=== PATIENT | male | born 1950 | race Caucasian/White ===

== ENCOUNTER 2016-12-20 02:30 | Inpatient (IN) | payer MEDICAID ==
[2016-12-20] VITALS (20 sets, daily range): BP systolic 70–143; BP diastolic 48–119
[~2016-12-20] VITALS: Ht 182.9 cm; Wt 83.9 kg
[~2016-12-20 02:30] MED LIST: ATIVAN0.5 MG ORAL; BACTRIM SINGLE S1 EA ORAL; BENADRYL50 MG ORAL; COLACE100 MG ORAL; DUONEB 0.5-3(2.53 ML HHN; FLOMAX0.4 MG ORAL; MIDODRINE HCL5 MG ORAL; MOM30 ML ORAL; MULTIVITAMINS1 EA13 ORAL; MYLANTA30 M1 GT; PRILOSEC40 MG ORAL; RISPERDAL1 MG PO; TYLENOL325 MG ORAL
[2016-12-20 02:51] LABS: BASOPHILS % (AUTO) 0.4 % (0.0-2.0); EOSINOPHILS % (AUTO) 2.6 % (0.0-3.0); LYMPHOCYTES % (AUTO) 17.4 % (20.0-45.0); MEAN CORPUSCULAR HEMOGLOBIN 21.5 PG (27.0-31.0); MEAN CORPUSCULAR HGB CONC 29.1 G/DL (32.0-36.0); MEAN CORPUSCULAR VOLUME 74 FL (80-99); MEAN PLATELET VOLUME 10.3 FL (6.5-10.1); MONOCYTES % (AUTO) 3.3 % (1.0-10.0); NEUTROPHILS % (AUTO) 76.4 % (45.0-75.0); PLATELET COUNT 238 K/UL (150-450); RED BLOOD COUNT 5.09 M/UL (4.70-6.10); RED CELL DISTRIBUTION WIDTH 16.7 % (11.6-14.8); WHITE BLOOD COUNT 6.9 K/UL (4.8-10.8)
[2016-12-20] MEDS ORDERED: Zosyn 4.5gm inj ONE (02:58)
[2016-12-20] MEDS ORDERED: Piperacillin/Tazobactam 4.5 GM in NS 110 ML IVPB ONE (03:00)
[2016-12-20] MEDS ORDERED: metroNIDAZOLE 500mg 100 ML IVPB ONE (03:00)
[2016-12-20] MEDS ORDERED: Albuterol ud Inhalation HHN ONE ×2 (03:00→03:15)
--- NOTE | 2016-12-20 03:00 | Emergency Room Report ---
History of Present Illness General Chief Complaint: Dyspnea/Respdistress Source: Medical Record Present Illness HPI Is a 66-year-old male from residential. He has a history of schizophrenia and COPD. He presents with chief complaint of respiratory distress. Onset for last couple days. Per EMS he was hypoxic. [facility] called 911 because of this. Is no fever or chills. No nausea no vomiting. Mental status per EMS was at baseline. He is a full code. History limited because the patient is a poor historian. Allergies: Coded Allergies: No Known Allergies (Unverified , 12/05/15) Patient History Past Medical History: see triage record, old chart reviewed, COPD Past Surgical History: other Pertinent Family History: none Social History: Denies: smoking Immunizations: other Reviewed Nursing Documentation: PMH: Agreed, PSxH: Agreed Nursing Documentation-PMH Past Medical History: No History, Except For Hx Cardiac Problems: Yes - HF, Hx Hypertension: Yes Hx COPD: Yes Hx Cancer: No Review of Systems Constitutional: Reports: weakness Eye: Denies: blurred vision, eye pain ENT: Denies: ear pain, nose congestion, throat swelling Respiratory: Reports: cough, shortness of breath Cardiovascular: Denies: chest pain, palpitations Gastrointestinal: Denies: abdominal pain, diarrhea, nausea, vomiting Musculoskeletal: Denies: back pain, joint pain Skin: Denies: rash Neurological: Denies: headache, numbness Endocrine: Denies: increased thirst, increased urine Hematologic/Lymphatic: Denies: easy bruising All Other Systems: negative except mentioned in HPI Physical Exam Vital Signs Date Time Temp Pulse Resp B/P Pulse Ox O2 Delivery O2 Flow Rate FiO2 12/20/16 02:25 144 26 70/48 78 Non-Rebreather 15.0 12/20/16 02:31 99.5 vitals with low-grade fever and tachycardia Sp02 EP Interpretation: abnormal General Appearance: moderate distress, thin, Chronically Ill Head: normocephalic, atraumatic Eyes: bilateral eye EOMI, bilateral eye PERRL ENT: hearing grossly normal, normal pharynx Neck: full range of motion, supple, no meningismus Respiratory: chest non-tender, respiratory distress, decreased breath sounds, accessory muscle use, crackles Cardiovascular #1: regular rate, rhythm, no murmur, tachycardia Gastrointestinal: normal bowel sounds, non tender, no mass, no organomegaly, no bruit, non-distended Musculoskeletal: back normal, other - Patient is contracted Skin: warm/dry Procedures Critical Care Time Critical Care Time Critical care is mandated in this patient who presented with urosepsis/septic shock secondary to pneumonia. Patient require my urgent intervention to attenuate the risks of respiratory collapse which may lead to cardiovascular collapse and . Critical care time is 35 minutes excluding any reportable procedure. Critical care time included evaluation, multiple reevaluation, looking at old charts, interpreting laboratory and diagnostic data, discussing case with patient and family and consultants, and charting. Medical Decision Making Diagnostic Impression: Primary Impression: Acute respiratory failure with hypoxia Additional Impressions: Aspiration pneumonia Qualified Codes: J69.0 - Pneumonitis due to inhalation of food and vomit Severe sepsis Dehydration Anemia, chronic disease Proteinuria Qualified Codes: R80.9 - Proteinuria, unspecified MAR (acute kidney injury) Pneumonia Qualified Codes: J18.1 - Lobar pneumonia, unspecified organism ER Course Patient presents with acute respiratory failure secondary to hypoxia from sepsis and pneumonia. He is greatly improved with IV fluids and BiPAP. He is more alert. 1 spectrum antibiotics and Flagyl started. Will continue with BiPAP. Will admit to ICU. Laboratory Tests Test 12/20/16 02:30 12/20/16 02:31 12/20/16 03:13 12/20/16 03:20 White Blood Count 6.9 K/UL (4.8-10.8) Red Blood Count 5.09 M/UL (4.70-6.10) Hemoglobin 11.0 G/DL (14.2-18.0) L Hematocrit 37.6 % (42.0-52.0) L Mean Corpuscular Volume 74 FL (80-99) L Mean Corpuscular Hemoglobin 21.5 PG (27.0-31.0) L Mean Corpuscular Hemoglobin Concent 29.1 G/DL (32.0-36.0) L Red Cell Distribution Width 16.7 % (11.6-14.8) H Platelet Count 238 K/UL (150-450) Mean Platelet Volume 10.3 FL (6.5-10.1) H Neutrophils (%) (Auto) 76.4 % (45.0-75.0) H Lymphocytes (%) (Auto) 17.4 % (20.0-45.0) L Monocytes (%) (Auto) 3.3 % (1.0-10.0) Eosinophils (%) (Auto) 2.6 % (0.0-3.0) Basophils (%) (Auto) 0.4 % (0.0-2.0) Prothrombin Time 11.2 SEC (9.30-11.50) Prothromb Time International Ratio 1.1 (0.9-1.1) Activated Partial Thromboplast Time 24 SEC (23-33) Sodium Level 140 mEQ/L (135-145) Potassium Level 4.1 mEQ/L (3.4-4.9) Chloride Level 100 mEQ/L (98-107) Carbon Dioxide Level 19 mEQ/L (20-30) L Anion Gap 21 (5-15) H Blood Urea Nitrogen 22 mg/dL (7-23) Creatinine 1.3 mg/dL (0.7-1.2) H Estimat Glomerular Filtration Rate 55.1 mL/min (>60) Glucose Level 124 mg/dL (74-106) H Lactic Acid Level 6.00 mmol/L (0.66-2.22) H 6.50 mmol/L (0.66-2.22) H Calcium Level 9.5 mg/dL (8.6-10.2) Total Bilirubin 0.3 mg/dL (0.0-1.2) Aspartate Amino Transf (AST/SGOT) 57 U/L (5-40) H Alanine Aminotransferase (ALT/SGPT) 56 U/L (3-41) H Alkaline Phosphatase 71 U/L (40-129) Total Creatine Kinase 112 U/L (38-174) Creatine Kinase MB 3.2 ng/mL (< 6.7) Creatine Kinase MB Relative Index 2.8 Troponin I < 0.30 ng/mL (<=0.30) Pro-B-Type Natriuretic Peptide Pending Total Protein 7.5 g/dL (6.6-8.7) Albumin 3.7 g/dL (3.5-5.2) Globulin 3.8 g/dL Albumin/Globulin Ratio 0.9 (1.0-2.7) L Arterial Blood pH 7.341 (7.350-7.450) Arterial Blood Partial Pressure CO2 30.5 mmHg (35.0-45.0) L Arterial Blood Partial Pressure O2 64.0 mmHg (75.0-100.0) L Arterial Blood HCO3 16.1 mmol/L (22.0-26.0) L Arterial Blood Oxygen Saturation 88.7 % (92.0-98.0) L Arterial Blood Base Excess -8.6 Foreign Test Positive Urine Color Pale yellow Urine Appearance Clear Urine pH 6 (4.5-8.0) Urine Specific [place] 1.015 (1.005-1.035) Urine Protein 3+ (NEGATIVE) H Urine Glucose (UA) Negative (NEGATIVE) Urine Ketones Negative (NEGATIVE) Urine Occult Blood Negative (NEGATIVE) Urine Nitrite Negative (NEGATIVE) Urine Bilirubin Negative (NEGATIVE) Urine Urobilinogen Normal MG/DL (0.0-1.0) Urine Leukocyte Esterase Negative (NEGATIVE) Urine RBC 0-2 /HPF (0 - 0) H Urine WBC 2-4 /HPF (0 - 0) Urine Squamous Epithelial Cells Few /LPF (NONE/OCC) Urine Bacteria Few /HPF (NONE) Lab Results Impression labs with elevated lactate EKG Diagnostic Results Rate: normal, tachycardiac Rhythm: NSR ST Segments: other - NSST changes Rhythm Strip Diag. Results EP Interpretation: yes Rate: 120 Rhythm: NSR, no PVC's, no ectopy Chest X-Ray Diagnostic Results EP Interpretation: Yes Findings: no effusion, no pneumothorax, other - rll infiltrate Number of Views: 1 Last Vital Signs Date Time Temp Pulse Resp B/P Pulse Ox O2 Delivery O2 Flow Rate FiO2 12/20/16 02:31 99.5 138 40 70/48 82 Non-Rebreather 15.0 Status: improved Disposition: ADMITTED INPATIENT Condition: Critical Referrals: ALONDRA SINGH (PCP) JERALD URBINA M.D. Dec 20, 2016 03:00
[2016-12-20 03:03] LABS: TROPONIN I < 0.30 ng/mL (<=0.30)
[2016-12-20 03:04] LABS: INR 1.1 (0.9-1.1); PROTHROMBIN TIME 11.2 SEC (9.30-11.50)
[2016-12-20 03:07] LABS: ALBUMIN/GLOBULIN RATIO 0.9 (1.0-2.7); CALCIUM 9.5 mg/dL (8.6-10.2); CREATININE 1.3 mg/dL (0.7-1.2); GLOMERULAR FILTRATION RATE 55.1 mL/min (>60); POTASSIUM 4.1 mEQ/L (3.4-4.9); TOTAL PROTEIN 7.5 g/dL (6.6-8.7)
[2016-12-20 03:10] LABS: REFLEX LACTIC ACID YES OR NO YES
[2016-12-20 03:13] LABS: ABG ALLEN TEST POSITIVE; ABG BASE EXCESS -8.6; ABG PCO2 30.5 mmHg (35.0-45.0)
[2016-12-20] MEDS ORDERED: Solu-MEDROL 125mg Inj IVP ONE (03:15)
[2016-12-20 03:17] LABS: CKMB 3.2 ng/mL (< 6.7)
[2016-12-20] MEDS: Albuterol ud Inhalation HHN SCH ×2 (03:22→03:23)
[2016-12-20 03:41] LABS: APPEARANCE,URINE CLEAR; KETONES,URINE NEGATIVE (NEGATIVE); LEUKOCYTE ESTERASE ,URINE NEGATIVE (NEGATIVE); NITRITE,URINE NEGATIVE (NEGATIVE); PH,URINE 6 (4.5-8.0); PROTEIN,URINE 3+ (NEGATIVE); UROBILINOGEN,URINE NORMAL MG/DL (0.0-1.0)
[2016-12-20 04:03] LABS: BACTERIA,URINE FEW /HPF; RBC,URINE 0-2 /HPF (0 - 0); SQUAMOUS EPITHELIAL CELL,UR FEW /LPF (NONE/OCC)
[2016-12-20] MEDS ORDERED: MIDODRINE HCL5 MG ORAL (04:18)
[2016-12-20] MEDS ORDERED: NEXIUM40 MG ORAL (04:18)
[2016-12-20] MEDS ORDERED: BISACODYL10 M1 RC (04:18)
[2016-12-20 05:38] LABS: REFLEX LACTIC ACID YES OR NO YES
--- NOTE | 2016-12-20 08:16 | Infectious Diseases Prog Note ---
Assessment/Plan Problems: (1) HCAP (healthcare-associated pneumonia) Assessment & Plan: will send sputum culture and start vacomycin with zosyn empirically (2) Severe sepsis with septic shock Assessment & Plan: will send blood culture and start zosyn with vancomycin empirically. (3) CHF (congestive heart failure) Assessment & Plan: continue diuresis, consult cardiology (4) COPD (chronic obstructive pulmonary disease) Assessment & Plan: continue inhalers , with antibiotics, pulmonary is following (5) Acute respiratory failure with hypoxia Assessment & Plan: due to pneumonia, on BIPAP , pulmonary is following (6) MAR (acute kidney injury) Assessment & Plan: due to sepsis, continue gentle hydration, adjust meds as per creatinine clearance .consult nephrology Subjective Allergies: Coded Allergies: No Known Allergies (Unverified , 12/05/15) Objective Vital Signs Last 24 Hour Vital Signs Date Time Temp Pulse Resp B/P Pulse Ox O2 Delivery O2 Flow Rate FiO2 12/20/16 06:45 112 22 100 Facial 60 12/20/16 06:24 99.6 114 21 103/68 97 Bi-pap 15.0 60 12/20/16 05:45 117 24 100 Facial 60 12/20/16 05:12 112 25 109/76 100 Bi-pap 15.0 80 12/20/16 03:53 146 32 100 Bi-pap 80 12/20/16 03:53 80 12/20/16 03:37 99.9 143 37 100/64 100 Bi-pap 15.0 100 12/20/16 03:26 100 12/20/16 03:23 147 37 Bi-pap 15.0 100 12/20/16 03:20 145 39 96 Bi-pap 100 12/20/16 03:19 145 36 Bi-pap 100 12/20/16 03:17 146 39 96 Facial 100 12/20/16 02:50 99.9 12/20/16 02:31 99.5 138 40 70/48 82 Non-Rebreather 15.0 12/20/16 02:25 144 26 70/48 78 Non-Rebreather 15.0 Height (Feet): 6 Height (Inches): 0.00 Weight (Pounds): 185 Laboratory Tests Test 12/20/16 02:30 12/20/16 02:31 12/20/16 03:13 4/11/17 03:20 White Blood Count 6.9 K/UL (4.8-10.8) Red Blood Count 5.09 M/UL (4.70-6.10) Hemoglobin 11.0 G/DL (14.2-18.0) L Hematocrit 37.6 % (42.0-52.0) L Mean Corpuscular Volume 74 FL (80-99) L Mean Corpuscular Hemoglobin 21.5 PG (27.0-31.0) L Mean Corpuscular Hemoglobin Concent 29.1 G/DL (32.0-36.0) L Red Cell Distribution Width 16.7 % (11.6-14.8) H Platelet Count 238 K/UL (150-450) Mean Platelet Volume 10.3 FL (6.5-10.1) H Neutrophils (%) (Auto) 76.4 % (45.0-75.0) H Lymphocytes (%) (Auto) 17.4 % (20.0-45.0) L Monocytes (%) (Auto) 3.3 % (1.0-10.0) Eosinophils (%) (Auto) 2.6 % (0.0-3.0) Basophils (%) (Auto) 0.4 % (0.0-2.0) Prothrombin Time 11.2 SEC (9.30-11.50) Prothromb Time International Ratio 1.1 (0.9-1.1) Activated Partial Thromboplast Time 24 SEC (23-33) Sodium Level 140 mEQ/L (135-145) Potassium Level 4.1 mEQ/L (3.4-4.9) Chloride Level 100 mEQ/L (98-107) Carbon Dioxide Level 19 mEQ/L (20-30) L Anion Gap 21 (5-15) H Blood Urea Nitrogen 22 mg/dL (7-23) Creatinine 1.3 mg/dL (0.7-1.2) H Estimat Glomerular Filtration Rate 55.1 mL/min (>60) Glucose Level 124 mg/dL (74-106) H Lactic Acid Level 6.00 mmol/L (0.66-2.22) H 6.50 mmol/L (0.66-2.22) H Calcium Level 9.5 mg/dL (8.6-10.2) Total Bilirubin 0.3 mg/dL (0.0-1.2) Aspartate Amino Transf (AST/SGOT) 57 U/L (5-40) H Alanine Aminotransferase (ALT/SGPT) 56 U/L (3-41) H Alkaline Phosphatase 71 U/L (40-129) Total Creatine Kinase 112 U/L (38-174) Creatine Kinase MB 3.2 ng/mL (< 6.7) Creatine Kinase MB Relative Index 2.8 Troponin I < 0.30 ng/mL (<=0.30) Pro-B-Type Natriuretic Peptide 220 pg/mL (0-125) H Total Protein 7.5 g/dL (6.6-8.7) Albumin 3.7 g/dL (3.5-5.2) Globulin 3.8 g/dL Albumin/Globulin Ratio 0.9 (1.0-2.7) L Arterial Blood pH 7.341 (7.350-7.450) Arterial Blood Partial Pressure CO2 30.5 mmHg (35.0-45.0) L Arterial Blood Partial Pressure O2 64.0 mmHg (75.0-100.0) L Arterial Blood HCO3 16.1 mmol/L (22.0-26.0) L Arterial Blood Oxygen Saturation 88.7 % (92.0-98.0) L Arterial Blood Base Excess -8.6 Foreign Test Positive Urine Color Pale yellow Urine Appearance Clear Urine pH 6 (4.5-8.0) Urine Specific [place] 1.015 (1.005-1.035) Urine Protein 3+ (NEGATIVE) H Urine Glucose (UA) Negative (NEGATIVE) Urine Ketones Negative (NEGATIVE) Urine Occult Blood Negative (NEGATIVE) Urine Nitrite Negative (NEGATIVE) Urine Bilirubin Negative (NEGATIVE) Urine Urobilinogen Normal MG/DL (0.0-1.0) Urine Leukocyte Esterase Negative (NEGATIVE) Urine RBC 0-2 /HPF (0 - 0) H Urine WBC 2-4 /HPF (0 - 0) Urine Squamous Epithelial Cells Few /LPF (NONE/OCC) Urine Bacteria Few /HPF (NONE) Test 12/20/16 05:00 12/20/16 06:44 Lactic Acid Level 5.30 mmol/L (0.66-2.22) H 3.70 mmol/L (0.66-2.22) H Current Medications Medications (Trade) Dose Ordered Sig/Gloria Route PRN Reason Start Time Stop Time Status Last Admin Dose Admin Albuterol Sulfate (Proventil) 5 mg Q15M N 12/20/16 03:15 12/25/16 03:14 12/20/16 03:23 Frankie Ratliff M.D. Dec 20, 2016 08:16
[2016-12-20] MEDS ORDERED: Vancomycin 1 GM in D5W 275 ML IVPB SCH (09:00)
[2016-12-20] MEDS ORDERED: Vancomycin 1250mg/D5W 275ml IVPB ONE ×2 (10:00)
[2016-12-20] MEDS ORDERED: LORazepam Inj 2mg/ml 1ml IV PRN (10:15)
[2016-12-20] MEDS ORDERED: Promethazine/Codeine 5ml UD ORAL PRN (10:15)
[2016-12-20] MEDS ORDERED: Nitroglycerin Subl 0.4mg tab (Bottle Of 25) SL PRN (10:15)
[2016-12-20] MEDS ORDERED: Morphine Sulfate 2mg/ml Inj IVP PRN (10:15)
[2016-12-20] MEDS ORDERED: Milk of Magnesia 30ml Ud ORAL PRN (10:15)
--- NOTE | 2016-12-20 10:23 | Pulmonolgy Critical Care Note ---
Critical Care - Asmt/Plan Problems: (1) Acute respiratory failure (2) Schizophrenia (3) Aspiration pneumonia (4) COPD (chronic obstructive pulmonary disease) Respiratory: monitor respiratory rate, adjust FIO2 Cardiac: continue to monitor HR/BP Renal: F/U I&O, keep IV fluid Infectious Disease: add antibiotics Gastrointestinal: continue feedings/current rate Endocrine: monitor blood sugar, check HgA1C, d/c insulin drip Neurologic: PRN Ativan, PRN Morphine Affect: PRN ativan Prophylaxis: Protonix Disposition: keep in ICU Notes Reviewed: drapery operator, cardio, renal, ID Discussed with: nurses, consultants, adult protective caseworkermedication care manager - Objective Last 24 Hour Vital Signs Date Time Temp Pulse Resp B/P Pulse Ox O2 Delivery O2 Flow Rate FiO2 12/20/16 10:11 55.0 12/20/16 10:00 98.5 108 25 143/78 90 Venturi Mask 55 12/20/16 09:45 99.6 103 21 107/76 99 15.0 60 12/20/16 09:12 108 21 99 Facial 60 12/20/16 08:25 99.6 103 26 107/76 100 Bi-pap 15.0 60 12/20/16 08:00 55.0 12/20/16 07:30 99.6 109 23 107/77 99 Bi-pap 15.0 60 12/20/16 06:45 112 22 100 Facial 60 12/20/16 06:24 99.6 114 21 103/68 97 Bi-pap 15.0 60 12/20/16 05:45 117 24 100 Facial 60 12/20/16 05:12 112 25 109/76 100 Bi-pap 15.0 80 12/20/16 03:53 146 32 100 Bi-pap 80 12/20/16 03:53 80 12/20/16 03:37 99.9 143 37 100/64 100 Bi-pap 15.0 100 12/20/16 03:26 100 12/20/16 03:23 147 37 Bi-pap 15.0 100 12/20/16 03:20 145 39 96 Bi-pap 100 12/20/16 03:19 145 36 Bi-pap 100 12/20/16 03:17 146 39 96 Facial 100 12/20/16 02:50 99.9 12/20/16 02:31 99.5 138 40 70/48 82 Non-Rebreather 15.0 12/20/16 02:25 144 26 70/48 78 Non-Rebreather 15.0 Status: awake Condition: critical HEENT: atraumatic Neck: full ROM Lungs: clear Heart: HR/BP stable, HR/BP unstable Abdomen: soft, active bowel sounds, feeding tube Extremities: no C/C/E Decubiti: location Critical Care - Subjective ROS Limited/Unobtainable: Yes ICU Day: 1 Interval Events: 66-year-old male from senior living with COPD presented with chief complaint of respiratory distress for the last couple of days. he was hypoxic in the field. Pt was diagnosed to have respiratory failure and RLL pneumonia and hypoxemia and admitted to ICU for further management. FI02: 55 Sputum Amount: Moderate I&O: Intake and Output 12/19/16 12/20/16 19:00 07:00 Output Total 800 ml Balance -800 ml Output Urine Total 800 ml CXR: RLL infiltrate Labs: Laboratory Tests Test 12/20/16 02:30 12/20/16 02:31 12/20/16 03:13 12/20/16 03:20 White Blood Count 6.9 K/UL (4.8-10.8) Red Blood Count 5.09 M/UL (4.70-6.10) Hemoglobin 11.0 G/DL (14.2-18.0) L Hematocrit 37.6 % (42.0-52.0) L Mean Corpuscular Volume 74 FL (80-99) L Mean Corpuscular Hemoglobin 21.5 PG (27.0-31.0) L Mean Corpuscular Hemoglobin Concent 29.1 G/DL (32.0-36.0) L Red Cell Distribution Width 16.7 % (11.6-14.8) H Platelet Count 238 K/UL (150-450) Mean Platelet Volume 10.3 FL (6.5-10.1) H Neutrophils (%) (Auto) 76.4 % (45.0-75.0) H Lymphocytes (%) (Auto) 17.4 % (20.0-45.0) L Monocytes (%) (Auto) 3.3 % (1.0-10.0) Eosinophils (%) (Auto) 2.6 % (0.0-3.0) Basophils (%) (Auto) 0.4 % (0.0-2.0) Prothrombin Time 11.2 SEC (9.30-11.50) Prothromb Time International Ratio 1.1 (0.9-1.1) Activated Partial Thromboplast Time 24 SEC (23-33) Sodium Level 140 mEQ/L (135-145) Potassium Level 4.1 mEQ/L (3.4-4.9) Chloride Level 100 mEQ/L (98-107) Carbon Dioxide Level 19 mEQ/L (20-30) L Anion Gap 21 (5-15) H Blood Urea Nitrogen 22 mg/dL (7-23) Creatinine 1.3 mg/dL (0.7-1.2) H Estimat Glomerular Filtration Rate 55.1 mL/min (>60) Glucose Level 124 mg/dL (74-106) H Lactic Acid Level 6.00 mmol/L (0.66-2.22) H 6.50 mmol/L (0.66-2.22) H Calcium Level 9.5 mg/dL (8.6-10.2) Total Bilirubin 0.3 mg/dL (0.0-1.2) Aspartate Amino Transf (AST/SGOT) 57 U/L (5-40) H Alanine Aminotransferase (ALT/SGPT) 56 U/L (3-41) H Alkaline Phosphatase 71 U/L (40-129) Total Creatine Kinase 112 U/L (38-174) Creatine Kinase MB 3.2 ng/mL (< 6.7) Creatine Kinase MB Relative Index 2.8 Troponin I < 0.30 ng/mL (<=0.30) Pro-B-Type Natriuretic Peptide 220 pg/mL (0-125) H Total Protein 7.5 g/dL (6.6-8.7) Albumin 3.7 g/dL (3.5-5.2) Globulin 3.8 g/dL Albumin/Globulin Ratio 0.9 (1.0-2.7) L Arterial Blood pH 7.341 (7.350-7.450) Arterial Blood Partial Pressure CO2 30.5 mmHg (35.0-45.0) L Arterial Blood Partial Pressure O2 64.0 mmHg (75.0-100.0) L Arterial Blood HCO3 16.1 mmol/L (22.0-26.0) L Arterial Blood Oxygen Saturation 88.7 % (92.0-98.0) L Arterial Blood Base Excess -8.6 Foreign Test Positive Urine Color Pale yellow Urine Appearance Clear Urine pH 6 (4.5-8.0) Urine Specific [place] 1.015 (1.005-1.035) Urine Protein 3+ (NEGATIVE) H Urine Glucose (UA) Negative (NEGATIVE) Urine Ketones Negative (NEGATIVE) Urine Occult Blood Negative (NEGATIVE) Urine Nitrite Negative (NEGATIVE) Urine Bilirubin Negative (NEGATIVE) Urine Urobilinogen Normal MG/DL (0.0-1.0) Urine Leukocyte Esterase Negative (NEGATIVE) Urine RBC 0-2 /HPF (0 - 0) H Urine WBC 2-4 /HPF (0 - 0) Urine Squamous Epithelial Cells Few /LPF (NONE/OCC) Urine Bacteria Few /HPF (NONE) Test 12/20/16 05:00 12/20/16 06:44 Lactic Acid Level 5.30 mmol/L (0.66-2.22) H 3.70 mmol/L (0.66-2.22) H ALMA LINDO Dec 20, 2016 10:23
--- NOTE | 2016-12-20 10:23 | Diagnostic Imaging Report ---
Indication: Chest pain Technique: One view of the chest Comparison: 03/07/2016 Findings: Positioning is somewhat suboptimal, and patient is very contracted. There is infiltrate the right lower lung. There is marked elevation left hemidiaphragm, with left basilar atelectasis. The stomach is distended with gas. The heart size is difficult to assess, probably normal. The upper lung pabon are clear Impression: Bibasilar infiltrate, likely pneumonia Elevated left hemidiaphragm with left basilar atelectasis Gas-filled distended stomach
[2016-12-20] MEDS: Pantoprazole Inj IV SCH (11:12)
[2016-12-20] MEDS: Piperacillin/Tazobactam 4.5 GM in NS 110 ML IVPB SCH ×2 (11:12→18:09)
[2016-12-20] MEDS: D5 1/2NS 1,000 ML IV SCH (11:18)
[2016-12-20] MEDS: Vancomycin 750mg/D5W 275ml IVPB SCH ×2 (22:04)
--- NOTE | 2016-12-20 22:18 | Consultation ---
DATE OF CONSULTATION: 12/20/2016 CARDIOLOGY CONSULTATION CONSULTING PHYSICIAN: Ren Dodd M.D. REFERRING PHYSICIAN: Daniel Ramachandran M.D. REASON FOR CONSULTATION: Hypotension and tachycardia. HISTORY OF PRESENT ILLNESS: The patient is a 66-year-old gentleman with history of schizophrenia and chronic obstructive pulmonary disease, was brought to the emergency room for respiratory distress. Per EMS, the patient was hypoxic, therefore shelter called 911. The patient did not have any fever or chills. The patient was hypotensive in the ER, therefore received 2 to 5 liters of IV fluids as the blood pressure was 70/48. With intravenous fluids, the patient's blood pressure subsequently was established. At the time of my evaluation, the patient is in the intensive care unit, but he is not on Levophed or another pressors, but is on IV fluids. In the emergency room, the patient's heart rate was also 144. History cannot be obtained due to underlying mental status. PAST MEDICAL HISTORY: 1. Include chronic obstructive pulmonary disease. 2. Dementia. 3. Schizophrenia. FAMILY HISTORY: Noncontributory. SOCIAL HISTORY: He lives in a shelter. Does not smoke or drink alcohol. PHYSICAL EXAMINATION: VITAL SIGNS: Blood pressure is 100/73, pulse is 101, respirations 20, and he is afebrile. HEAD AND NECK: Shows no JVD. LUNGS: Coarse rhonchi. CARDIOVASCULAR: Shows regular S1 and S2 with no gallop or murmur. ABDOMEN: Soft. EXTREMITIES: No pitting edema, but has lower extremities of contraction. LABORATORY DATA: White count 6.9, hemoglobin 11, hematocrit 37.2, and platelet count 238,000. Sodium is 140, potassium 4.1, BUN of 20, creatinine 1.3, and glucose of 125. BNP is 220. INR is 1.1. ASSESSMENT AND PLAN: Hypotension, significantly improved with IV fluids. The patient is also on broad-spectrum intravenous antibiotics, possible pneumonia and sepsis. The patient currently remains in the intensive care unit. We will get an echocardiogram to evaluate for ejection fraction and wall motion abnormality. We will switch him on broad-spectrum intravenous antibiotics. The patient has possible right lower lobe pneumonia. The patient under observation by Dr. Rojas. Thank you very much, Dr. Ramachandran, for allowing me to participate in the care of this patient. Please do not hesitate to contact me for any questions regarding my evaluation. Ren Dodd M.D. DR: SHELLY JOB#: [id number] CC:
--- NOTE | 2016-12-20 23:07 | History and Physical Report ---
DATE OF ADMISSION: 12/20/2016 I am covering for Dr. Johan Rangel. This Dr. Johan Rangel's patient. HISTORY OF PRESENT ILLNESS: The patient is being admitted for severe exacerbation of pneumonia, on a BiPAP, elevated lactate, unable to obtain further history from the patient. PAST MEDICAL HISTORY: Significant for respiratory insufficiency as well as history of GERD, history of anxiety, history of constipation, BPH, and hypotension . PAST SURGICAL HISTORY: Denies. ALLERGIES: No known allergies. MEDICATIONS: , Benadryl, docusate, Nexium, lorazepam, magnesium, midodrine, multivitamin and Flomax. FAMILY HISTORY: Noncontributory. SOCIAL HISTORY: Denies history of alcohol or illicit drugs. REVIEW OF SYSTEMS: poor historian, cannot rely upon his history. PHYSICAL EXAMINATION: VITAL SIGNS: Temperature is 99.6 degrees, pulse is 103, and blood pressure 107/76. HEENT: PERRLA. NECK: Supple. No lymphadenopathy. CHEST: Clear to auscultation. GASTROINTESTINAL: Soft, nontender, and nondistended. No organomegaly. EXTREMITIES: No edema. Reflexes are equal on both sides. Poor historian. LABORATORY DATA: WBC of 6.9, hemoglobin 11, and platelets 238,000. Lactate of 6. ASSESSMENT AND PLAN: 1. Respiratory insufficiency, rule out aspiration pneumonia. 2. Sepsis. 3. Pneumonia, on BiPAP. I have asked Dr. Recinos, Dr. Ratliff, Dr. Gomez, and Dr. Dodd to see the patient for the above-mentioned diagnoses and treatment. Daniel Ramachandran M.D. DR: DEANGELO JOB#: [id number] CC: Johan Rangel D.O.
[2016-12-21] VITALS (24 sets, daily range): BP systolic 89–146; BP diastolic 55–111
[2016-12-21] MEDS: Heparin 25,000u/D5W 500ml 500 ML IV SCH ×2 (01:16→18:37)
--- NOTE | 2016-12-21 02:08 | Consultation ---
DATE OF CONSULTATION: 12/20/2016 INFECTIOUS DISEASE CONSULTATION REQUESTING PHYSICIAN: Daniel Ramachandran M.D. REASON FOR CONSULTATION: Sepsis and pneumonia. Recommendation for antibiotics therapy. HISTORY OF PRESENT ILLNESS: The patient is a 66-year-old male with past medical history of congestive heart failure and chronic obstructive pulmonary disease was sent from the long term for respiratory distress. The patient was found to be hypoxemic at the long term paramedics were contacted and today brought into [facility] for further evaluation and management. He had no fever or chills at the long term. No nausea or vomiting. No cough or phlegm. The patient is a poor historian and could not provide good history. History was mainly obtained from the medical record. In the ED, his temperature was 99.5. He was hypotensive with blood pressure of 70/48, and saturating 78% on nonrebreathable with oxygen rate of 15. Chest x-ray showed right lower lobe infiltration. The patient received antibiotics and I was consulted by the primary provider for management of sepsis and pneumonia. REVIEW OF SYSTEMS: Unable to obtain. The patient is a poor historian, cannot provide any history. PAST MEDICAL HISTORY: Significant for congestive heart failure and chronic obstructive pulmonary disease. PAST SURGICAL HISTORY: Negative. FAMILY HISTORY: Unable to obtain. SOCIAL HISTORY: He is a long term resident. No recent drugs, tobacco, or alcohol. ALLERGIES: He has no known drug allergies. MEDICATIONS: He received Zosyn, Levaquin, and metronidazole in the emergency room. For the rest of his medications, please refer to MAR. LABORATORY DATA: Showed white count of 6.9, hemoglobin of 11, hematocrit of 37.6, and platelet count of . Lactic acid of 6. BUN of 22 and creatinine of 1.3. AST of 67 and ALT of . Urinalysis is negative for nitrite and leukocyte esterase with few bacteria. IMAGING: Chest x-ray showed bibasilar infiltrates, likely pneumonia. PHYSICAL EXAMINATION: VITAL SIGNS: Temperature 98.8, pulse 96, respirations 31, blood pressure 120/102, and saturation 96% on Venturi mask with FiO2 of 65. GENERAL: An elderly male, lying in bed. He is awake, alert, holding the Venturi mask in his hand. He is nonverbal. He does not respond to verbal commands. He is not in acute distress. HEENT: Normocephalic and atraumatic. Pupils are reactive to light. Pale sclerae. Dry oral mucosa. NECK: Supple. No lymphadenopathy. CARDIOVASCULAR: He is tachycardic. S1 and S2 are normal. No murmur or gallop. LUNGS: He has crackles and diminished breathing sound at the bases. Normal breathing effort. ABDOMEN: Soft, nontender, and nondistended. Positive bowel sounds. No hepatosplenomegaly. No ascites. EXTREMITIES: No edema. No cyanosis. ASSESSMENT AND PLAN: 1. Healthcare-acquired pneumonia. We will send sputum culture. Start vancomycin, Zosyn, and empiric treatment. 2. Severe sepsis with septic shock and end-organ failure. We will send blood culture. Start Zosyn and vancomycin. Empiric treatment. We will deescalate antibiotics based on his culture results. 3. Congestive heart failure, possible exacerbation. Consult Cardiology, may need diuresis. 4. Chronic obstructive pulmonary disease, possible exacerbation. 5. Continue inhalers with antibiotics. Pulmonary is following. 6. Acute respiratory failure with hypoxemia due to pneumonia on BiPAP. Pulmonary is following. Monitor ABG. 7. Acute renal failure due to sepsis and shock. Continue gentle hydration adjustments as per creatinine clearance. Consult Nephrology. 8. Elevated transaminases due to liver shock due to sepsis. Continue supportive care. Monitor liver function tests and check for hepatitis. Frankie Ratliff M.D. DR: AMY JOB#: [id number] CC:
[2016-12-21] MEDS: Piperacillin/Tazobactam 4.5 GM in NS 110 ML IVPB SCH ×3 (03:17→18:32)
[2016-12-21 06:50] LABS: ABG ALLEN TEST POSITIVE; ABG BASE EXCESS 0; ABG PCO2 31.7 mmHg (35.0-45.0)
[2016-12-21] MEDS: D5 1/2NS 1,000 ML IV SCH ×2 (07:00→18:32)
[2016-12-21 07:33] LABS: MEAN CORPUSCULAR HEMOGLOBIN 22.1 PG (27.0-31.0); MEAN CORPUSCULAR HGB CONC 30.8 G/DL (32.0-36.0); MEAN CORPUSCULAR VOLUME 72 FL (80-99); MEAN PLATELET VOLUME 11.8 FL (6.5-10.1); PLATELET COUNT 142 K/UL (150-450); RED BLOOD COUNT 3.65 M/UL (4.70-6.10); RED CELL DISTRIBUTION WIDTH 16.2 % (11.6-14.8); WHITE BLOOD COUNT 20.6 K/UL (4.8-10.8)
[2016-12-21 07:49] LABS: ALANINE AMINOTRANSFERASE 36 U/L (3-41); ALBUMIN/GLOBULIN RATIO 1.1 (1.0-2.7); ANION GAP 14 (5-15); ASPARTATE AMINO TRANSFERASE 44 U/L (5-40); CALCIUM 8.8 mg/dL (8.6-10.2); CARBON DIOXIDE 23 mEQ/L (20-30); CHLORIDE 106 mEQ/L (98-107); CREATININE 1.2 mg/dL (0.7-1.2); GLOMERULAR FILTRATION RATE > 60 mL/min (>60); HEMOLYSIS 4; MAGNESIUM 1.5 mg/dL (1.7-2.5); PHOSPHORUS 2.7 mg/dL (2.5-4.8); POTASSIUM 3.6 mEQ/L (3.4-4.9); SODIUM 143 mEQ/L (135-145); TOTAL PROTEIN 6.1 g/dL (6.6-8.7)
[2016-12-21 07:51] LABS: TROPONIN I 0.43 ng/mL (<=0.30)
[2016-12-21 07:59] LABS: BAND NEUTROPHILS % (MANUAL) 11 % (0-8); LYMPHOCYTES % (MANUAL) 2 % (20-45); NEUTROPHILS % (MANUAL) 85 % (45-75); TOTAL CELLS COUNTED 100
[2016-12-21 08:00] LABS: ANISOCYTOSIS 1+; BASOPHILS % (MANUAL) 0 % (0-2); EOSINOPHILS % (MANUAL) 0 % (0-3); HYPOCHROMASIA 2+; MICROCYTES 2+; PLATELET ESTIMATE DECREASED; PLATELET MORPHOLOGY NORMAL
[2016-12-21] MEDS: Pantoprazole Inj IV SCH (08:55)
[2016-12-21] MEDS: Vancomycin 750mg/D5W 275ml IVPB SCH ×4 (09:04→22:43)
--- NOTE | 2016-12-21 10:31 | Pulmonolgy Critical Care Note ---
Critical Care - Asmt/Plan Problems: (1) Acute respiratory failure (2) Schizophrenia (3) Aspiration pneumonia (4) COPD (chronic obstructive pulmonary disease) Respiratory: monitor respiratory rate, adjust FIO2, CXR Cardiac: stop pressors, continue to monitor HR/BP, other - preliminary echo showing EF of 50% Renal: keep IV fluid Infectious Disease: check cultures, continue antibiotics Endocrine: monitor blood sugar, continue sliding scale insulin Hematologic: monitor H/H, transfuse if hgb<8.5 Neurologic: PRN Ativan, PRN Morphine, keep patient comfortable Affect: PRN ativan Prophylaxis: Protonix, Heparin Notes Reviewed: graphics software engineer, cardio, renal Discussed with: nurses, consultants, porter sample caseassistant import manager - Objective Last 24 Hour Vital Signs Date Time Temp Pulse Resp B/P Pulse Ox O2 Delivery O2 Flow Rate FiO2 12/21/16 10:00 76 26 120/66 99 Venturi Mask 55 12/21/16 09:00 99.2 82 29 106/57 99 Venturi Mask 55 12/21/16 08:00 80 12/21/16 08:00 99.4 75 31 104/58 98 Venturi Mask 55 12/21/16 07:00 80 30 90/55 97 Venturi Mask 55 12/21/16 06:00 84 27 102/65 98 Venturi Mask 55 12/21/16 05:00 84 27 102/65 98 Venturi Mask 55 12/21/16 04:00 55.0 12/21/16 04:00 82 12/21/16 04:00 98.8 84 27 108/64 96 Venturi Mask 55 12/21/16 03:00 76 23 89/59 97 Venturi Mask 55 12/21/16 02:00 79 24 93/61 97 Venturi Mask 55 12/21/16 01:00 80 24 97/61 98 Venturi Mask 55 12/21/16 00:00 99.1 81 24 105/65 98 Venturi Mask 55 12/21/16 00:00 55.0 12/21/16 00:00 82 12/20/16 23:00 82 24 102/66 100 Venturi Mask 55 12/20/16 22:00 85 25 117/69 98 Venturi Mask 55 12/20/16 21:50 92 12/20/16 21:00 91 26 105/63 97 Venturi Mask 55 12/20/16 20:00 55.0 12/20/16 20:00 98.6 92 28 107/67 97 Venturi Mask 55 12/20/16 19:00 96 31 120/102 96 Venturi Mask 55 12/20/16 18:00 103 26 120/61 96 Venturi Mask 55 12/20/16 17:00 105 25 125/82 96 Venturi Mask 55 12/20/16 16:00 98.8 106 26 100/73 92 Venturi Mask 55 12/20/16 16:00 101 12/20/16 16:00 55.0 12/20/16 15:00 101 25 114/82 97 Venturi Mask 55 12/20/16 14:00 95 28 109/73 99 Venturi Mask 55 12/20/16 13:00 111 22 123/87 91 Venturi Mask 55 12/20/16 12:00 111 29 141/119 91 Venturi Mask 55 12/20/16 12:00 108 12/20/16 12:00 55.0 12/20/16 11:00 98.2 108 24 137/92 96 Venturi Mask 55 Status: awake Condition: critical HEENT: atraumatic, normocephalic Neck: full ROM Lungs: clear Heart: HR/BP stable, HR/BP unstable Abdomen: soft, non-tender Extremities: no C/C/E, edema Micro: Microbiology Date/Time Source Procedure Growth Status 12/20/16 02:30 Blood Blood Culture - Preliminary NO GROWTH AFTER 24 HOURS Resulted 12/20/16 02:15 Blood Blood Culture - Preliminary NO GROWTH AFTER 24 HOURS Resulted Critical Care - Subjective ROS Limited/Unobtainable: No ICU Day: 2 Interval Events: H/H dropped to 8 from 11. started on heparin drip last night. Condition: critical FI02: 55 Sputum Amount: Moderate Fluids: d5 1/2 50 cc.hour Drips: heprin I&O: Intake and Output 12/20/16 12/21/16 18:59 06:59 Intake Total 735.00 ml 1254.117 ml Output Total 2615 ml 1075 ml Balance -1880.00 ml 179.117 ml Intake IV Total 735.00 ml 1254.117 ml Output Urine Total 2615 ml 1075 ml CXR: cxr better Labs: Laboratory Tests Test 12/20/16 23:45 12/21/16 06:35 12/21/16 07:05 Activated Partial Thromboplast Time 31 SEC (23-33) 87 SEC (23-33) H Arterial Blood pH 7.480 (7.350-7.450) Arterial Blood Partial Pressure CO2 31.7 mmHg (35.0-45.0) L Arterial Blood Partial Pressure O2 78.1 mmHg (75.0-100.0) Arterial Blood HCO3 23.2 mmol/L (22.0-26.0) Arterial Blood Oxygen Saturation 95.1 % (92.0-98.0) Arterial Blood Base Excess 0 Foreign Test Positive White Blood Count 20.6 K/UL (4.8-10.8) #H Red Blood Count 3.65 M/UL (4.70-6.10) L Hemoglobin 8.1 G/DL (14.2-18.0) L Hematocrit 26.2 % (42.0-52.0) #L Mean Corpuscular Volume 72 FL (80-99) L Mean Corpuscular Hemoglobin 22.1 PG (27.0-31.0) L Mean Corpuscular Hemoglobin Concent 30.8 G/DL (32.0-36.0) L Red Cell Distribution Width 16.2 % (11.6-14.8) H Platelet Count 142 K/UL (150-450) L Mean Platelet Volume 11.8 FL (6.5-10.1) H Neutrophils (%) (Auto) % (45.0-75.0) Lymphocytes (%) (Auto) % (20.0-45.0) Monocytes (%) (Auto) % (1.0-10.0) Eosinophils (%) (Auto) % (0.0-3.0) Basophils (%) (Auto) % (0.0-2.0) Differential Total Cells Counted 100 Neutrophils % (Manual) 85 % (45-75) H Lymphocytes % (Manual) 2 % (20-45) L Monocytes % (Manual) 2 % (1-10) Eosinophils % (Manual) 0 % (0-3) Basophils % (Manual) 0 % (0-2) Band Neutrophils 11 % (0-8) H Platelet Estimate Decreased L Platelet Morphology Normal Hypochromasia 2+ Anisocytosis 1+ Microcytosis 2+ Sodium Level 143 mEQ/L (135-145) Potassium Level 3.6 mEQ/L (3.4-4.9) Chloride Level 106 mEQ/L (98-107) Carbon Dioxide Level 23 mEQ/L (20-30) Anion Gap 14 (5-15) Blood Urea Nitrogen 19 mg/dL (7-23) Creatinine 1.2 mg/dL (0.7-1.2) Estimat Glomerular Filtration Rate > 60 mL/min (>60) Glucose Level 113 mg/dL (74-106) H Calcium Level 8.8 mg/dL (8.6-10.2) Phosphorus Level 2.7 mg/dL (2.5-4.8) Magnesium Level 1.5 mg/dL (1.7-2.5) L Total Bilirubin 0.5 mg/dL (0.0-1.2) Aspartate Amino Transf (AST/SGOT) 44 U/L (5-40) H Alanine Aminotransferase (ALT/SGPT) 36 U/L (3-41) Alkaline Phosphatase 37 U/L (40-129) L Total Creatine Kinase 256 U/L (38-174) H Troponin I 0.43 ng/mL (<=0.30) *H Total Protein 6.1 g/dL (6.6-8.7) L Albumin 3.2 g/dL (3.5-5.2) L Globulin 2.9 g/dL Albumin/Globulin Ratio 1.1 (1.0-2.7) ALMA LINDO Dec 21, 2016 10:31
--- NOTE | 2016-12-21 10:35 | General Progress Note ---
Assessment/Plan Problem List: (1) Osteoarthritis ICD Codes: M19.90 - Unspecified osteoarthritis, unspecified site SNOMED: 842704583 (2) UTI (urinary tract infection) ICD Codes: N39.0 - Urinary tract infection, site not specified SNOMED: 68082661 (3) Anemia ICD Codes: D64.9 - Anemia, unspecified SNOMED: 430114022 (4) Encephalopathy ICD Codes: G93.40 - Encephalopathy, unspecified SNOMED: 99580409, 047544142 (5) UTI (urinary tract infection) ICD Codes: N39.0 - Urinary tract infection, site not specified SNOMED: 36663820 (6) Gallstone ICD Codes: K80.20 - Calculus of gallbladder without cholecystitis without obstruction SNOMED: 749018552 (7) Aspiration pneumonia ICD Codes: J69.0 - Pneumonitis due to inhalation of food and vomit SNOMED: 214808984, 023016956 Qualifiers: Qualified Codes: J69.0 - Pneumonitis due to inhalation of food and vomit (8) Acute respiratory failure with hypoxia ICD Codes: J96.01 - Acute respiratory failure with hypoxia SNOMED: 42784082, 135311658 (9) Anemia, chronic disease ICD Codes: D63.8 - Anemia in other chronic diseases classified elsewhere SNOMED: 328912377, 121598733 Status: unchanged Assessment/Plan sepsis and uti resp failure not improving check labs reviewed chart and labs abx per id intermittent fevers Subjective ROS Limited/Unobtainable: Yes Constitutional: Reports: no symptoms Allergies: Coded Allergies: No Known Allergies (Unverified , 12/05/15) Objective Last 24 Hour Vital Signs Date Time Temp Pulse Resp B/P Pulse Ox O2 Delivery O2 Flow Rate FiO2 12/21/16 10:00 76 26 120/66 99 Venturi Mask 55 12/21/16 09:00 99.2 82 29 106/57 99 Venturi Mask 55 12/21/16 08:00 80 12/21/16 08:00 99.4 75 31 104/58 98 Venturi Mask 55 12/21/16 07:00 80 30 90/55 97 Venturi Mask 55 12/21/16 06:00 84 27 102/65 98 Venturi Mask 55 12/21/16 05:00 84 27 102/65 98 Venturi Mask 55 12/21/16 04:00 55.0 12/21/16 04:00 82 12/21/16 04:00 98.8 84 27 108/64 96 Venturi Mask 55 12/21/16 03:00 76 23 89/59 97 Venturi Mask 55 12/21/16 02:00 79 24 93/61 97 Venturi Mask 55 12/21/16 01:00 80 24 97/61 98 Venturi Mask 55 12/21/16 00:00 99.1 81 24 105/65 98 Venturi Mask 55 12/21/16 00:00 55.0 12/21/16 00:00 82 12/20/16 23:00 82 24 102/66 100 Venturi Mask 55 12/20/16 22:00 85 25 117/69 98 Venturi Mask 55 12/20/16 21:50 92 12/20/16 21:00 91 26 105/63 97 Venturi Mask 55 12/20/16 20:00 55.0 12/20/16 20:00 98.6 92 28 107/67 97 Venturi Mask 55 12/20/16 19:00 96 31 120/102 96 Venturi Mask 55 12/20/16 18:00 103 26 120/61 96 Venturi Mask 55 12/20/16 17:00 105 25 125/82 96 Venturi Mask 55 12/20/16 16:00 98.8 106 26 100/73 92 Venturi Mask 55 12/20/16 16:00 101 12/20/16 16:00 55.0 12/20/16 15:00 101 25 114/82 97 Venturi Mask 55 12/20/16 14:00 95 28 109/73 99 Venturi Mask 55 12/20/16 13:00 111 22 123/87 91 Venturi Mask 55 12/20/16 12:00 111 29 141/119 91 Venturi Mask 55 12/20/16 12:00 108 12/20/16 12:00 55.0 12/20/16 11:00 98.2 108 24 137/92 96 Venturi Mask 55 Intake and Output 12/20/16 12/21/16 18:59 06:59 Intake Total 735.00 ml 1254.117 ml Output Total 2615 ml 1075 ml Balance -1880.00 ml 179.117 ml Intake IV Total 735.00 ml 1254.117 ml Output Urine Total 2615 ml 1075 ml Laboratory Tests 12/20/16 23:45: Activated Partial Thromboplast Time 31 12/21/16 06:35: Arterial Blood pH 7.480H, Arterial Blood Partial Pressure CO2 31.7L, Arterial Blood Partial Pressure O2 78.1, Arterial Blood HCO3 23.2, Arterial Blood Oxygen Saturation 95.1, Arterial Blood Base Excess 0, Foreign Test Positive 12/21/16 07:05: Activated Partial Thromboplast Time 87H, White Blood Count 20.6#H, Red Blood Count 3.65L, Hemoglobin 8.1L, Hematocrit 26.2#L, Mean Corpuscular Volume 72L, Mean Corpuscular Hemoglobin 22.1L, Mean Corpuscular Hemoglobin Concent 30.8L, Red Cell Distribution Width 16.2H, Platelet Count 142L, Mean Platelet Volume 11.8H, Neutrophils (%) (Auto) , Lymphocytes (%) (Auto) , Monocytes (%) (Auto) , Eosinophils (%) (Auto) , Basophils (%) (Auto) , Differential Total Cells Counted 100, Neutrophils % (Manual) 85H, Lymphocytes % (Manual) 2L, Monocytes % (Manual) 2, Eosinophils % (Manual) 0, Basophils % (Manual) 0, Band Neutrophils 11H, Platelet Estimate DecreasedL, Platelet Morphology Normal, Hypochromasia 2+ , Anisocytosis 1+, Microcytosis 2+, Sodium Level 143, Potassium Level 3.6, Chloride Level 106, Carbon Dioxide Level 23, Anion Gap 14, Blood Urea Nitrogen 19, Creatinine 1.2, Estimat Glomerular Filtration Rate > 60, Glucose Level 113H , Calcium Level 8.8, Phosphorus Level 2.7, Magnesium Level 1.5L, Total Bilirubin 0.5, Aspartate Amino Transf (AST/SGOT) 44H, Alanine Aminotransferase ( ALT/SGPT) 36, Alkaline Phosphatase 37L, Total Creatine Kinase 256H, Troponin I 0.43*H, Total Protein 6.1L, Albumin 3.2L, Globulin 2.9, Albumin/Globulin Ratio 1.1 Height (Feet): 6 Height (Inches): 0.00 Weight (Pounds): 185 EENT: PERRL/EOMI Neck: supple Cardiovascular: normal rate Respiratory/Chest: lungs clear Abdomen: soft Daniel Ramachandran MD Dec 21, 2016 10:35
--- NOTE | 2016-12-21 11:21 | Diagnostic Imaging Report ---
Indication: DYSPNEA Technique: One view of the chest Comparison: 12/20/2016 Findings: Please note that the date listed on the exam is incorrect. The correct date is 12/21/2016. There is interim partial improvement of previously demonstrated right mid and lower lung infiltrate, with some disease persists. There is increased pleural fluid at the left lung base. The heart is enlarged. Impression: Improved but persistent right mid and lower lung infiltrate Increasing left-sided pleural effusion, over one day
--- NOTE | 2016-12-21 12:16 | Cardiac Electrophysiology PN ---
Assessment/Plan Assessment/Plan 1. Hypotension, significantly improved with IV fluids. On broad-spectrum intravenous antibiotics for possible pneumonia and sepsis. Final echocardiogram pending. Preliminary EF 60%. 2. Troponin leak 0.43. First one was negative. No renal failure. Patient comfortable and nonverbal and ECG this AM completely normal and EF 60%. Could be due to transient hypotension. Hold off on aspirin for severe acute anemia and hold off beta uli for hypotension. Will repeat troponin. 3. Increase WBC from 6.9 to >20. IV abx per ID 4. Anemia with 3 gm drop in HB from 11 to 8. No obvious gi bleed. ? Dilutional. On heparin drip per Dr Tesfaye. 5. Acute RCFV DVT on Coumadin per Dr. Tesfaye. Watch for drop in Hb. Stool OB pending. MARY KAY RN Subjective Subjective Nonverbal in ICU. No arrhythmias overnight.Seems comfortable. Objective Last 24 Hour Vital Signs Date Time Temp Pulse Resp B/P Pulse Ox O2 Delivery O2 Flow Rate FiO2 12/21/16 11:00 78 12 123/76 100 Venturi Mask 55 12/21/16 10:00 76 26 120/66 99 Venturi Mask 55 12/21/16 09:00 99.2 82 29 106/57 99 Venturi Mask 55 12/21/16 08:00 80 12/21/16 08:00 99.4 75 31 104/58 98 Venturi Mask 55 12/21/16 07:00 80 30 90/55 97 Venturi Mask 55 12/21/16 06:00 84 27 102/65 98 Venturi Mask 55 12/21/16 05:00 84 27 102/65 98 Venturi Mask 55 12/21/16 04:00 55.0 12/21/16 04:00 82 12/21/16 04:00 98.8 84 27 108/64 96 Venturi Mask 55 12/21/16 03:00 76 23 89/59 97 Venturi Mask 55 12/21/16 02:00 79 24 93/61 97 Venturi Mask 55 12/21/16 01:00 80 24 97/61 98 Venturi Mask 55 12/21/16 00:00 99.1 81 24 105/65 98 Venturi Mask 55 12/21/16 00:00 55.0 12/21/16 00:00 82 12/20/16 23:00 82 24 102/66 100 Venturi Mask 55 12/20/16 22:00 85 25 117/69 98 Venturi Mask 55 12/20/16 21:50 92 12/20/16 21:00 91 26 105/63 97 Venturi Mask 55 12/20/16 20:00 55.0 12/20/16 20:00 98.6 92 28 107/67 97 Venturi Mask 55 12/20/16 19:00 96 31 120/102 96 Venturi Mask 55 12/20/16 18:00 103 26 120/61 96 Venturi Mask 55 12/20/16 17:00 105 25 125/82 96 Venturi Mask 55 12/20/16 16:00 98.8 106 26 100/73 92 Venturi Mask 55 12/20/16 16:00 101 12/20/16 16:00 55.0 12/20/16 15:00 101 25 114/82 97 Venturi Mask 55 12/20/16 14:00 95 28 109/73 99 Venturi Mask 55 12/20/16 13:00 111 22 123/87 91 Venturi Mask 55 Intake and Output 12/20/16 12/21/16 19:00 07:00 Intake Total 812.50 ml 1284.326 ml Output Total 2790 ml 950 ml Balance -1977.50 ml 334.326 ml Intake IV Total 812.50 ml 1284.326 ml Output Urine Total 2790 ml 950 ml Laboratory Tests Test 12/20/16 23:45 12/21/16 06:35 12/21/16 07:05 Activated Partial Thromboplast Time 31 SEC (23-33) 87 SEC (23-33) H Arterial Blood pH 7.480 (7.350-7.450) Arterial Blood Partial Pressure CO2 31.7 mmHg (35.0-45.0) L Arterial Blood Partial Pressure O2 78.1 mmHg (75.0-100.0) Arterial Blood HCO3 23.2 mmol/L (22.0-26.0) Arterial Blood Oxygen Saturation 95.1 % (92.0-98.0) Arterial Blood Base Excess 0 Foreign Test Positive White Blood Count 20.6 K/UL (4.8-10.8) #H Red Blood Count 3.65 M/UL (4.70-6.10) L Hemoglobin 8.1 G/DL (14.2-18.0) L Hematocrit 26.2 % (42.0-52.0) #L Mean Corpuscular Volume 72 FL (80-99) L Mean Corpuscular Hemoglobin 22.1 PG (27.0-31.0) L Mean Corpuscular Hemoglobin Concent 30.8 G/DL (32.0-36.0) L Red Cell Distribution Width 16.2 % (11.6-14.8) H Platelet Count 142 K/UL (150-450) L Mean Platelet Volume 11.8 FL (6.5-10.1) H Neutrophils (%) (Auto) % (45.0-75.0) Lymphocytes (%) (Auto) % (20.0-45.0) Monocytes (%) (Auto) % (1.0-10.0) Eosinophils (%) (Auto) % (0.0-3.0) Basophils (%) (Auto) % (0.0-2.0) Differential Total Cells Counted 100 Neutrophils % (Manual) 85 % (45-75) H Lymphocytes % (Manual) 2 % (20-45) L Monocytes % (Manual) 2 % (1-10) Eosinophils % (Manual) 0 % (0-3) Basophils % (Manual) 0 % (0-2) Band Neutrophils 11 % (0-8) H Platelet Estimate Decreased L Platelet Morphology Normal Hypochromasia 2+ Anisocytosis 1+ Microcytosis 2+ Sodium Level 143 mEQ/L (135-145) Potassium Level 3.6 mEQ/L (3.4-4.9) Chloride Level 106 mEQ/L (98-107) Carbon Dioxide Level 23 mEQ/L (20-30) Anion Gap 14 (5-15) Blood Urea Nitrogen 19 mg/dL (7-23) Creatinine 1.2 mg/dL (0.7-1.2) Estimat Glomerular Filtration Rate > 60 mL/min (>60) Glucose Level 113 mg/dL (74-106) H Calcium Level 8.8 mg/dL (8.6-10.2) Phosphorus Level 2.7 mg/dL (2.5-4.8) Magnesium Level 1.5 mg/dL (1.7-2.5) L Total Bilirubin 0.5 mg/dL (0.0-1.2) Aspartate Amino Transf (AST/SGOT) 44 U/L (5-40) H Alanine Aminotransferase (ALT/SGPT) 36 U/L (3-41) Alkaline Phosphatase 37 U/L (40-129) L Total Creatine Kinase 256 U/L (38-174) H Troponin I 0.43 ng/mL (<=0.30) *H Total Protein 6.1 g/dL (6.6-8.7) L Albumin 3.2 g/dL (3.5-5.2) L Globulin 2.9 g/dL Albumin/Globulin Ratio 1.1 (1.0-2.7) Microbiology Date/Time Source Procedure Growth Status 12/20/16 02:30 Blood Blood Culture - Preliminary NO GROWTH AFTER 24 HOURS Resulted 12/20/16 02:15 Blood Blood Culture - Preliminary NO GROWTH AFTER 24 HOURS Resulted Objective HEAD AND NECK: No JVD. LUNGS: Coarse rhonchi. CARDIOVASCULAR: Shows regular S1 and S2 with no gallop or murmur. ABDOMEN: Soft. EXTREMITIES: No pitting edema, but has lower extremities of contraction. VOLODYMYR HOSKINS Dec 21, 2016 12:16
[2016-12-21 13:26] LABS: TROPONIN I 0.46 ng/mL (<=0.30)
[2016-12-21 14:06] LABS: HEMOLYSIS 5; IRON 13 ug/dL (59-158); TOTAL IRON BINDING CAPACITY 335 ug/dL (250-400)
--- NOTE | 2016-12-21 15:22 | Cardiology Report ---
APPROVED REPORT EXAM: Two-dimensional and M-mode echocardiogram with Doppler and color Doppler. INDICATION Left ventricular function Technically difficult study due to poor acoustic windows. Patients position and movement. M-mode measurements not obtainable due to cardiac structure. Normal left ventricular chamber size, systolic function and wall motion. Left ventricular ejection fraction estimated to be 60-65%. No evidence of left ventricular hypertrophy. No evidence of pericardial fat or effusion. All other cardiac chamber sizes are within normal limits. Focal aortic valve sclerosis with adequate cusp excursion Thickened mitral valve leaflets with normal excursion. Mitral annulus and aortic root calcification. Pulmonic valve not well visualized. Normal tricuspid valve structure. IVC is normal in size with physiologic collapse. A color flow and spectral Doppler study was performed and revealed: No aortic regurgitation. No mitral regurgitation. Mitral inflow indicate normal left ventricular diastolic function. No tricuspid regurgitation.
--- NOTE | 2016-12-21 15:27 | Infectious Diseases Prog Note ---
Assessment/Plan Problems: (1) HCAP (healthcare-associated pneumonia) Assessment & Plan: suspect aspiration, will add levaquin empirically, pending sputum culture and continue vacomycin with zosyn empirically (2) Severe sepsis with septic shock Assessment & Plan: with leukocytosis, will add levaquin empirically, await blood culture and continue zosyn with vancomycin empirically. (3) CHF (congestive heart failure) Assessment & Plan: continue diuresis, consult cardiology (4) COPD (chronic obstructive pulmonary disease) Assessment & Plan: continue inhalers , with antibiotics, pulmonary is following (5) Acute respiratory failure with hypoxia Assessment & Plan: due to pneumonia, on BIPAP , pulmonary is following (6) MAR (acute kidney injury) Assessment & Plan: due to sepsis, continue gentle hydration, adjust meds as per creatinine clearance .consult nephrology (7) Elevated troponin Assessment & Plan: management as per cardiology , continue tele monitor Subjective ROS Limited/Unobtainable: Yes Allergies: Coded Allergies: No Known Allergies (Unverified , 12/05/15) Subjective he is on venturi mask, awake and alert, breathing ok, not in distress, afebrile. Objective Vital Signs Last 24 Hour Vital Signs Date Time Temp Pulse Resp B/P Pulse Ox O2 Delivery O2 Flow Rate FiO2 12/21/16 15:00 100 20 139/77 98 Venturi Mask 55 12/21/16 14:00 77 30 123/73 98 Venturi Mask 55 12/21/16 13:00 90 27 133/90 96 Venturi Mask 55 12/21/16 12:00 98.7 86 32 125/81 96 Venturi Mask 55 12/21/16 12:00 77 12/21/16 11:00 78 12 123/76 100 Venturi Mask 55 12/21/16 10:00 76 26 120/66 99 Venturi Mask 55 12/21/16 09:00 99.2 82 29 106/57 99 Venturi Mask 55 12/21/16 08:00 80 12/21/16 08:00 99.4 75 31 104/58 98 Venturi Mask 55 12/21/16 07:00 80 30 90/55 97 Venturi Mask 55 12/21/16 06:00 84 27 102/65 98 Venturi Mask 55 12/21/16 05:00 84 27 102/65 98 Venturi Mask 55 12/21/16 04:00 55.0 12/21/16 04:00 82 12/21/16 04:00 98.8 84 27 108/64 96 Venturi Mask 55 12/21/16 03:00 76 23 89/59 97 Venturi Mask 55 12/21/16 02:00 79 24 93/61 97 Venturi Mask 55 12/21/16 01:00 80 24 97/61 98 Venturi Mask 55 12/21/16 00:00 99.1 81 24 105/65 98 Venturi Mask 55 12/21/16 00:00 55.0 12/21/16 00:00 82 12/20/16 23:00 82 24 102/66 100 Venturi Mask 55 12/20/16 22:00 85 25 117/69 98 Venturi Mask 55 12/20/16 21:50 92 12/20/16 21:00 91 26 105/63 97 Venturi Mask 55 12/20/16 20:00 55.0 12/20/16 20:00 98.6 92 28 107/67 97 Venturi Mask 55 12/20/16 19:00 96 31 120/102 96 Venturi Mask 55 12/20/16 18:00 103 26 120/61 96 Venturi Mask 55 12/20/16 17:00 105 25 125/82 96 Venturi Mask 55 12/20/16 16:00 98.8 106 26 100/73 92 Venturi Mask 55 12/20/16 16:00 101 12/20/16 16:00 55.0 Height (Feet): 6 Height (Inches): 0.00 Weight (Pounds): 185 General Appearance: WD/WN, no acute distress HEENT: normocephalic, atraumatic, anicteric, mucous membranes moist Respiratory/Chest: chest wall non-tender, no respiratory distress, no accessory muscle use, decreased breath sounds, crackles/rales Cardiovascular: normal peripheral pulses, normal rate, regular rhythm, no gallop/murmur Abdomen: normal bowel sounds, soft, non tender, no organomegaly, non distended , no mass Extremities: no cyanosis, no clubbing Skin: no rash, no lesions Microbiology Date/Time Source Procedure Growth Status 12/20/16 02:30 Blood Blood Culture - Preliminary NO GROWTH AFTER 24 HOURS Resulted 12/20/16 02:15 Blood Blood Culture - Preliminary NO GROWTH AFTER 24 HOURS Resulted 12/20/16 11:35 Sputum Gram Stain - Final Resulted 12/20/16 11:35 Sputum Sputum Culture Pending Resulted Laboratory Tests Test 12/20/16 23:45 12/21/16 06:35 12/21/16 07:05 12/21/16 12:30 Activated Partial Thromboplast Time 31 SEC (23-33) 87 SEC (23-33) H Arterial Blood pH 7.480 (7.350-7.450) Arterial Blood Partial Pressure CO2 31.7 mmHg (35.0-45.0) L Arterial Blood Partial Pressure O2 78.1 mmHg (75.0-100.0) Arterial Blood HCO3 23.2 mmol/L (22.0-26.0) Arterial Blood Oxygen Saturation 95.1 % (92.0-98.0) Arterial Blood Base Excess 0 Foreign Test Positive White Blood Count 20.6 K/UL (4.8-10.8) #H Red Blood Count 3.65 M/UL (4.70-6.10) L Hemoglobin 8.1 G/DL (14.2-18.0) L Hematocrit 26.2 % (42.0-52.0) #L Mean Corpuscular Volume 72 FL (80-99) L Mean Corpuscular Hemoglobin 22.1 PG (27.0-31.0) L Mean Corpuscular Hemoglobin Concent 30.8 G/DL (32.0-36.0) L Red Cell Distribution Width 16.2 % (11.6-14.8) H Platelet Count 142 K/UL (150-450) L Mean Platelet Volume 11.8 FL (6.5-10.1) H Neutrophils (%) (Auto) % (45.0-75.0) Lymphocytes (%) (Auto) % (20.0-45.0) Monocytes (%) (Auto) % (1.0-10.0) Eosinophils (%) (Auto) % (0.0-3.0) Basophils (%) (Auto) % (0.0-2.0) Differential Total Cells Counted 100 Neutrophils % (Manual) 85 % (45-75) H Lymphocytes % (Manual) 2 % (20-45) L Monocytes % (Manual) 2 % (1-10) Eosinophils % (Manual) 0 % (0-3) Basophils % (Manual) 0 % (0-2) Band Neutrophils 11 % (0-8) H Platelet Estimate Decreased L Platelet Morphology Normal Hypochromasia 2+ Anisocytosis 1+ Microcytosis 2+ Sodium Level 143 mEQ/L (135-145) Potassium Level 3.6 mEQ/L (3.4-4.9) Chloride Level 106 mEQ/L (98-107) Carbon Dioxide Level 23 mEQ/L (20-30) Anion Gap 14 (5-15) Blood Urea Nitrogen 19 mg/dL (7-23) Creatinine 1.2 mg/dL (0.7-1.2) Estimat Glomerular Filtration Rate > 60 mL/min (>60) Glucose Level 113 mg/dL (74-106) H Calcium Level 8.8 mg/dL (8.6-10.2) Phosphorus Level 2.7 mg/dL (2.5-4.8) Magnesium Level 1.5 mg/dL (1.7-2.5) L Total Bilirubin 0.5 mg/dL (0.0-1.2) Aspartate Amino Transf (AST/SGOT) 44 U/L (5-40) H Alanine Aminotransferase (ALT/SGPT) 36 U/L (3-41) Alkaline Phosphatase 37 U/L (40-129) L Total Creatine Kinase 256 U/L (38-174) H Troponin I 0.43 ng/mL (<=0.30) *H 0.46 ng/mL (<=0.30) *H Total Protein 6.1 g/dL (6.6-8.7) L Albumin 3.2 g/dL (3.5-5.2) L Globulin 2.9 g/dL Albumin/Globulin Ratio 1.1 (1.0-2.7) Haptoglobin 186 mg/dL (30-200) Iron Level 13 ug/dL (59-158) L Total Iron Binding Capacity 335 ug/dL (250-400) Percent Iron Saturation 4 % (15-50) L Unsaturated Iron Binding 322 ug/dL (112-346) Vitamin B12 Level 693 pg/mL (211-946) Test 12/21/16 12:31 Reticulocyte Count 1.1 % (0.0-2.0) Folate Pending Current Medications Medications (Trade) Dose Ordered Sig/Gloria Route PRN Reason Start Time Stop Time Status Last Admin Dose Admin Acetaminophen (Tylenol) 650 mg Q4H PRN ORAL FEVER 12/20/16 10:15 01/19/17 10:14 Acetaminophen (Tylenol) 650 mg Q4H PRN ORAL Mild Pain (Pain Scale 1-3) 12/20/16 10:15 01/19/17 10:14 Bisacodyl (Dulcolax) 10 mg DAILYPRN PRN RECTAL Constipation 12/20/16 10:15 01/19/17 10:14 Dextrose/Sodium Chloride 1,000 ml @ 50 mls/hr Q20H IV 12/20/16 11:00 01/19/17 10:59 12/20/16 11:18 Heparin Sodium/ Dextrose (Heparin) 500 ml @ 30.209 mls/ hr adjust per protocol IV 12/20/16 23:45 01/19/17 23:44 12/21/16 01:16 Lorazepam (Ativan 2mg/ml 1ml) 0.5 mg Q4H PRN IV For Anxiety 12/20/16 10:15 12/27/16 10:14 Magnesium Hydroxide (Mom) 30 ml HSPRN PRN ORAL Constipation 12/20/16 10:15 01/19/17 10:14 Morphine Sulfate (Morphine Sulfate) 2 mg Q6H PRN IVP Moderate Pain (Pain Scale 4-6) 12/20/16 10:15 12/27/16 10:14 Nitroglycerin (Ntg) 0.4 mg Q5M PRN SL Prn Chest Pain 12/20/16 10:15 Ondansetron HCl (Zofran) 4 mg Q6H PRN IVP Nausea & Vomiting 12/20/16 10:15 01/19/17 10:14 Pantoprazole (Protonix) 40 mg DAILY IV 12/20/16 11:00 01/19/17 10:59 12/21/16 08:55 Piperacillin Sod/ Tazobactam Sod/ Sodium Chloride (Zosyn/Sodium Chloride) 110 ml @ 27.5 mls/hr Q8HR@0300,1100,1900 IVPB 12/20/16 11:00 12/27/16 10:59 12/21/16 10:58 Promethazine HCl/ Codeine 5 ml 5 ml Q4H PRN ORAL For Cough 12/20/16 10:15 01/19/17 10:14 Temazepam (Restoril) 15 mg HSPRN PRN ORAL Insomnia 12/20/16 10:15 12/27/16 10:14 Vancomycin HCl 1 ea 1 ea DAILY PRN MISC PER RX PROTOCOL 12/20/16 08:45 01/19/17 08:44 Vancomycin HCl/ Dextrose (Vancomycin/D5W) 275 ml @ 183.708 mls/hr Q12HR@1000,2200 IVPB 12/20/16 22:00 12/25/16 21:59 12/21/16 09:04 Frankie Ratliff M.D. Dec 21, 2016 15:27
[2016-12-21] MEDS ORDERED: NS 275ml ONE (15:39)
--- NOTE | 2016-12-21 15:43 | Cardiology Report ---
APPROVED REPORT EKG Measurement Heart [id number] Sinus tachycardia with premature supraventricular complexes Nonspecific ST and T wave abnormality Abnormal ECG
[2016-12-21 17:42] LABS: MEAN CORPUSCULAR HEMOGLOBIN 24.3 PG (27.0-31.0); MEAN CORPUSCULAR HGB CONC 33.8 G/DL (32.0-36.0); MEAN CORPUSCULAR VOLUME 72 FL (80-99); MEAN PLATELET VOLUME 11.9 FL (6.5-10.1); PLATELET COUNT 122 K/UL (150-450); RED BLOOD COUNT 3.68 M/UL (4.70-6.10); RED CELL DISTRIBUTION WIDTH 15.8 % (11.6-14.8)
[2016-12-21 17:46] LABS: WHITE BLOOD COUNT 24.1 K/UL (4.8-10.8)
[2016-12-21 19:02] LABS: BAND NEUTROPHILS % (MANUAL) 13 % (0-8); LYMPHOCYTES % (MANUAL) 6 % (20-45); NEUTROPHILS % (MANUAL) 77 % (45-75); TOTAL CELLS COUNTED 100
[2016-12-21 19:03] LABS: ANISOCYTOSIS 1+; MICROCYTES 1+; PLATELET MORPHOLOGY NORMAL; POLYCHROMASIA 1+
[2016-12-21 19:04] LABS: OVALOCYTES 1+; POIKILOCYTOSIS 1+
[2016-12-21 19:38] LABS: BASOPHILS % (MANUAL) 0 % (0-2); EOSINOPHILS % (MANUAL) 0 % (0-3); PATH BLOOD SMEAR/OMC SENT TO PATHOLOGIST; PLATELET ESTIMATE DECREASED
[2016-12-21] MEDS ORDERED: Acetaminophen 650 MG SUPP RECTAL PRN (20:00)
--- NOTE | 2016-12-21 21:57 | Consultation ---
DATE OF CONSULTATION: HEMATOLOGY/ONCOLOGY CONSULTATION CONSULTING PHYSICIAN: Gilberto Freedman M.D. REQUESTING PHYSICIAN: Misty Rojas M.D. REASON FOR CONSULTATION: Evaluation of deep venous thrombosis. IDENTIFICATION DATA: Dear Dr. Misty Rojas, The patient is a pleasant 66-year-old male with past medical history which is significant for respiratory insufficiency, gastroesophageal reflux disease, history of anxiety, constipation, hypertension, benign prostatic hypertrophy at this time was admitted to [facility] with hypoxia and brought in from skilled nursing via 911 by ambulance, was hypotensive in the ER, received fluids. Blood pressure improved, taken to the ICU, currently on low dose of vasopressor. An Hematology service was consulted given the patient has development of anemia as well as venous duplex completed which shows acute thrombus of the common femoral vein, mid to distal superficial femoral vein, not visualized. PAST MEDICAL HISTORY: 1. Chronic obstructive pulmonary disease. 2. Dementia. 3. Schizophrenia. SOCIAL HISTORY: Lives in a skilled nursing. No alcohol, tobacco, or illicit drug use. FAMILY HISTORY: Noncontributory. REVIEW OF SYSTEMS: Constitutional: No fever, chills, or night sweats. Skin: No rashes, lumps, or itching. HEENT: No headache, hearing or vision changes Breasts: No lumps, pain, or discharge. Pulmonary: No cough, sputum, or shortness of breath. Cardiovascular: No chest pain, tightness, or palpitations. Gastrointestinal: No nausea, vomiting, or diarrhea. Genitourinary: No dysuria, frequency, or urgency. Musculoskeletal: No joint swelling, muscle pain, or trauma. Neurologic: No dizziness, fainting, or seizures. PHYSICAL EXAMINATION: GENERAL: No acute distress. VITAL SIGNS: Temperature 99.3 degrees Fahrenheit , pulse 78, respiratory rate 12, blood pressure 123/76, and pulse oximetry 100% on Venti mask, FiO2 55%. PULMONARY: Decreased breath sounds. CARDIOVASCULAR: Regular rate and rhythm. No S3 or S4. ABDOMEN: Soft, nontender, and nondistended. EXTREMITIES: There is 1+ edema. LABORATORY DATA: WBC 21,000, hemoglobin 8.1, hematocrit 26, platelet count 142,000, neutrophils 85%. Imaging reviewed. ASSESSMENT: 1. Right lower extremity deep venous thrombosis. At this time consider use of anticoagulation. The patient with right common femoral clot. 2. The patient has anemia but likely secondary to hemodilution, rule out gastrointestinal bleed. The patient has been started on heparin drip. 3. Coagulopathy secondary to heparin drip. 4. Anemia secondary to hemodilution. 5. Decrease in hemoglobin and hematocrit, rule out gastrointestinal bleed. 6. Leukocytosis likely secondary to steroids. 7. Thrombocytopenia secondary to hemodilution as well. 8. Elevated blood sugar. 9. Elevated troponin, has been seen by Cardiology service. 10. Hypoxia. RECOMMENDATIONS: 1. Monitor counts. 2. Continue anticoagulation. 3. Hold off on Coumadin at the moment. 4. Appreciate Cardiology and Pulmonary recommendations. 5. Anemia workup has been ordered. 6. GI prophylaxis with PPI. 7. Antibiotics as needed. 8. . 9. Imaging has been reviewed. 10. Pain control. 11. Discussed with staff. Thank you, Dr. Misty Rojas for this kind referral. Please do not hesitate to contact me with any further questions. Gilberto Freedman M.D. DR: Stephania JOB#: [id number] CC:
[2016-12-22] VITALS (7 sets, daily range): BP systolic 106–160; BP diastolic 65–87
[2016-12-22] MEDS ORDERED: Heparin 25,000u/D5W 500ml 500 ML IV SCH ×2 (02:00→06:00)
[2016-12-22] MEDS: D5 1/2NS 1,000 ML IV SCH ×3 (02:00→23:29)
[2016-12-22] MEDS ORDERED: Nitroglycerin Subl 0.4mg tab (Bottle Of 25) SL PRN (02:00)
[2016-12-22] MEDS ORDERED: Promethazine/Codeine 5ml UD ORAL PRN (02:15)
[2016-12-22] MEDS ORDERED: LORazepam Inj 2mg/ml 1ml IV PRN (02:15)
[2016-12-22] MEDS: Piperacillin/Tazobactam 4.5 GM in NS 110 ML IVPB SCH ×3 (03:11→18:31)
[2016-12-22] MEDS ORDERED: Acetaminophen 650 MG SUPP RECTAL PRN (04:00)
[2016-12-22] MEDS ORDERED: Morphine Sulfate 2mg/ml Inj IVP PRN (04:15)
[2016-12-22 05:00] LABS: MEAN CORPUSCULAR HEMOGLOBIN 21.8 PG (27.0-31.0); MEAN CORPUSCULAR HGB CONC 30.5 G/DL (32.0-36.0); MEAN CORPUSCULAR VOLUME 71 FL (80-99); MEAN PLATELET VOLUME 11.8 FL (6.5-10.1); PLATELET COUNT 143 K/UL (150-450); RED BLOOD COUNT 3.84 M/UL (4.70-6.10); RED CELL DISTRIBUTION WIDTH 16.1 % (11.6-14.8); WHITE BLOOD COUNT 18.5 K/UL (4.8-10.8)
[2016-12-22 05:04] LABS: ALANINE AMINOTRANSFERASE 32 U/L (3-41); ALBUMIN/GLOBULIN RATIO 0.7 (1.0-2.7); ANION GAP 11 (5-15); ASPARTATE AMINO TRANSFERASE 38 U/L (5-40); CALCIUM 8.7 mg/dL (8.6-10.2); CARBON DIOXIDE 25 mEQ/L (20-30); CHLORIDE 101 mEQ/L (98-107); GLOMERULAR FILTRATION RATE > 60 mL/min (>60); HEMOLYSIS 0; MAGNESIUM 1.6 mg/dL (1.7-2.5); PHOSPHORUS 2.3 mg/dL (2.5-4.8); POTASSIUM 3.5 mEQ/L (3.4-4.9); SODIUM 137 mEQ/L (135-145); TOTAL PROTEIN 6.4 g/dL (6.6-8.7)
[2016-12-22 05:21] LABS: INR 1.2 (0.9-1.1); PROTHROMBIN TIME 12.3 SEC (9.30-11.50)
[2016-12-22] MEDS: Heparin 25,000u/D5W 500ml 500 ML IV SCH ×2 (06:29→13:30)
[2016-12-22 08:11] LABS: ANISOCYTOSIS 1+; BAND NEUTROPHILS % (MANUAL) 0 % (0-8); BASOPHILS % (MANUAL) 0 % (0-2); EOSINOPHILS % (MANUAL) 1 % (0-3); HYPOCHROMASIA 2+; LYMPHOCYTES % (MANUAL) 4 % (20-45); MICROCYTES 2+; NEUTROPHILS % (MANUAL) 90 % (45-75); PLATELET ESTIMATE DECREASED; PLATELET MORPHOLOGY NORMAL; TOTAL CELLS COUNTED 100
[2016-12-22] MEDS: Pantoprazole Inj IV SCH (09:09)
[2016-12-22] MEDS: Vancomycin 1 GM in D5W 275 ML IVPB SCH ×2 (09:11→23:29)
[2016-12-22] MEDS ORDERED: Vancomycin 1gm/D5W 275ml IVPB SCH ×2 (10:00)
[2016-12-22] MEDS ORDERED: Milk of Magnesia 30ml Ud ORAL PRN (10:15)
--- NOTE | 2016-12-22 12:23 | Pulmonology Progress Note ---
Assessment/Plan Problems: (1) Severe sepsis (2) Pneumonia (3) Acute respiratory failure (4) Acute DVT (deep venous thrombosis) (5) MAR (acute kidney injury) (6) Anemia (7) Encephalopathy Assessment/Plan IV antibiotics check cultures swallow study bioethics for Code status Subjective ROS Limited/Unobtainable: No Constitutional: Reports: no symptoms HEENT: Repors: no symptoms Respiratory: Reports: no symptoms Allergies: Coded Allergies: No Known Allergies (Unverified , 12/05/15) Objective Last 24 Hour Vital Signs Date Time Temp Pulse Resp B/P Pulse Ox O2 Delivery O2 Flow Rate FiO2 12/22/16 11:17 98.2 75 19 106/65 97 Venturi Mask 12/22/16 08:30 98.4 79 17 113/69 100 Venturi Mask 50 12/22/16 07:54 69 12/22/16 04:00 72 12/22/16 04:00 97.9 84 18 128/80 100 Venturi Mask 15.0 12/22/16 01:00 78 30 134/80 99 Venturi Mask 50 12/22/16 00:00 79 12/22/16 00:00 99.0 75 28 134/87 97 Venturi Mask 50 12/21/16 23:00 74 29 134/111 97 Venturi Mask 50 12/21/16 22:00 98.7 82 25 121/77 97 Venturi Mask 50 12/21/16 21:00 99.9 96 25 134/83 97 Venturi Mask 50 12/21/16 20:40 100.0 12/21/16 20:00 98 12/21/16 20:00 100.8 104 31 144/81 97 Venturi Mask 50 12/21/16 19:00 100 25 146/102 96 Venturi Mask 55 12/21/16 18:00 105 25 146/74 95 Venturi Mask 55 12/21/16 17:00 99 26 130/82 95 Venturi Mask 55 12/21/16 16:00 99.4 83 36 119/71 98 Venturi Mask 55 12/21/16 16:00 82 12/21/16 15:00 100 20 139/77 98 Venturi Mask 55 12/21/16 14:00 77 30 123/73 98 Venturi Mask 55 12/21/16 13:00 90 27 133/90 96 Venturi Mask 55 Intake and Output 12/21/16 12/22/16 19:00 07:00 Intake Total 1094.799 ml 1074.799 ml Output Total 1285 ml 995 ml Balance -190.201 ml 79.799 ml Intake IV Total 1094.799 ml 1074.799 ml Output Urine Total 1285 ml 995 ml General Appearance: cachetic HEENT: normocephalic, atraumatic Respiratory/Chest: chest wall non-tender, lungs clear Cardiovascular: normal peripheral pulses, normal rate Abdomen: normal bowel sounds, soft, non tender Genitourinary: normal external genitalia 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 Complete 12/20/16 02:52 Rectal Mucosa VRE Culture - Final Enterococcus Faecalis - Vre Complete Laboratory Tests 12/21/16 12:30: Haptoglobin 186, Iron Level 13L, Total Iron Binding Capacity 335, Percent Iron Saturation 4L, Unsaturated Iron Binding 322, Troponin I 0.46*H, Vitamin B12 Level 693 12/21/16 12:31: Reticulocyte Count 1.1, Folate [Pending] 12/21/16 17:00: White Blood Count 24.1*H, Red Blood Count 3.68L, Hemoglobin 8.9L, Hematocrit 26.5L, Mean Corpuscular Volume 72L, Mean Corpuscular Hemoglobin 24.3L, Mean Corpuscular Hemoglobin Concent 33.8, Red Cell Distribution Width 15.8H, Platelet Count 122L, Mean Platelet Volume 11.9H, Neutrophils (%) (Auto) , Lymphocytes (%) (Auto) , Monocytes (%) (Auto) , Eosinophils (%) (Auto) , Basophils (%) (Auto) , Differential Total Cells Counted 100, Neutrophils % ( Manual) 77H, Lymphocytes % (Manual) 6L, Monocytes % (Manual) 4, Eosinophils % ( Manual) 0, Basophils % (Manual) 0, Band Neutrophils 13H, Platelet Estimate DecreasedL, Platelet Morphology Normal, Polychromasia 1+, Poikilocytosis 1+, Anisocytosis 1+, Microcytosis 1+, Ovalocytes 1+, Ferritin 58 12/21/16 20:30: Urine Total Protein [Pending], Urine Albumin (%) [Pending], Urine Alpha-1- Globulins (%) [Pending], Urine [id number] (%) [Pending], Urine Beta- Globulin (%) [Pending], Urine Gamma Globulin (%) [Pending], Ur Protein Electrophoresis M-Kranthi [Pending], Urine Protein Electrophoresis Intrp [Pending] 12/21/16 20:50: Vancomycin Level Trough 9.8 12/22/16 04:30: White Blood Count 18.5H, Red Blood Count 3.84L, Hemoglobin 8.4L, Hematocrit 27.4L, Mean Corpuscular Volume 71L, Mean Corpuscular Hemoglobin 21.8L, Mean Corpuscular Hemoglobin Concent 30.5L, Red Cell Distribution Width 16.1H, Platelet Count 143L, Mean Platelet Volume 11.8H, Neutrophils (%) (Auto) , Lymphocytes (%) (Auto) , Monocytes (%) (Auto) , Eosinophils (%) (Auto) , Basophils (%) (Auto) , Differential Total Cells Counted 100, Neutrophils % ( Manual) 90H, Lymphocytes % (Manual) 4L, Monocytes % (Manual) 5, Eosinophils % ( Manual) 1, Basophils % (Manual) 0, Band Neutrophils 0, Platelet Estimate DecreasedL, Platelet Morphology Normal, Hypochromasia 2+, Anisocytosis 1+, Microcytosis 2+, Prothrombin Time 12.3H, Prothromb Time International Ratio 1.2H , Activated Partial Thromboplast Time 125H, Sodium Level 137, Potassium Level 3.5, Chloride Level 101, Carbon Dioxide Level 25, Anion Gap 11, Blood Urea Nitrogen 15, Creatinine 1.0, Estimat Glomerular Filtration Rate > 60, Glucose Level 110H, Calcium Level 8.7, Phosphorus Level 2.3L, Magnesium Level 1.6L, Total Bilirubin 0.5, Aspartate Amino Transf (AST/SGOT) 38, Alanine Aminotransferase (ALT/SGPT) 32, Alkaline Phosphatase 38L, Total Protein 6.4L, Albumin 2.8L, Globulin 3.6, Albumin/Globulin Ratio 0.7L Current Medications Medications (Trade) Dose Ordered Sig/Gloria Route PRN Reason Start Time Stop Time Status Last Admin Dose Admin Acetaminophen (Tylenol) 650 mg Q4H PRN ORAL Mild Pain (Pain Scale 1-3) 12/22/16 02:15 01/21/17 02:14 Acetaminophen (Tylenol) 650 mg Q4H PRN RECTAL fever > 100.5F 12/22/16 04:00 01/21/17 03:59 Bisacodyl (Dulcolax) 10 mg DAILYPRN PRN RECTAL Constipation 12/22/16 10:15 01/21/17 10:14 Dextrose/Sodium Chloride 1,000 ml @ 50 mls/hr Q20H IV 12/22/16 02:00 01/21/17 01:59 12/22/16 03:57 Heparin Sodium/ Dextrose (Heparin) 500 ml @ 25.175 mls/ hr adjust per protocol IV 12/22/16 06:25 01/21/17 06:24 12/22/16 06:29 Levofloxacin 100 ml @ 100 mls/hr Q24H IVPB 12/22/16 17:00 12/29/16 16:59 Lorazepam (Ativan 2mg/ml 1ml) 0.5 mg Q4H PRN IV For Anxiety 12/22/16 02:15 12/29/16 02:14 Magnesium Hydroxide (Mom) 30 ml HSPRN PRN ORAL Constipation 12/22/16 10:15 01/21/17 10:14 Morphine Sulfate (Morphine Sulfate) 2 mg Q6H PRN IVP Moderate Pain (Pain Scale 4-6) 12/22/16 04:15 12/29/16 04:14 Nitroglycerin (Ntg) 0.4 mg Q5M PRN SL Prn Chest Pain 12/22/16 02:00 Ondansetron HCl (Zofran) 4 mg Q6H PRN IVP Nausea & Vomiting 12/22/16 04:15 01/21/17 04:14 Pantoprazole (Protonix) 40 mg DAILY IV 12/22/16 09:00 01/21/17 08:59 12/22/16 09:09 Piperacillin Sod/ Tazobactam Sod 4.5 gm/Sodium Chloride 110 ml @ 27.5 mls/hr Q8HR@0300,1100,1900 IVPB 12/22/16 03:00 12/29/16 02:59 12/22/16 11:13 Promethazine HCl/ Codeine (Phenergan with Codeine) 5 ml Q4H PRN ORAL For Cough 12/22/16 02:15 01/21/17 02:14 Temazepam (Restoril) 15 mg HSPRN PRN ORAL Insomnia 12/22/16 10:15 12/29/16 10:14 Vancomycin HCl 1 ea 1 ea DAILY PRN MISC PER RX PROTOCOL 12/22/16 09:00 01/21/17 08:59 Vancomycin HCl/ Dextrose (Vancomycin/D5W) 275 ml @ 183.708 mls/hr Q12H IVPB 12/22/16 10:00 12/27/16 09:59 12/22/16 09:11 ALMA LINDO Dec 22, 2016 12:23
--- NOTE | 2016-12-22 12:28 | General Progress Note ---
Assessment/Plan Problem List: (1) Osteoarthritis ICD Codes: M19.90 - Unspecified osteoarthritis, unspecified site SNOMED: 091687760 (2) UTI (urinary tract infection) ICD Codes: N39.0 - Urinary tract infection, site not specified SNOMED: 99391789 (3) Anemia ICD Codes: D64.9 - Anemia, unspecified SNOMED: 571038537 (4) Encephalopathy ICD Codes: G93.40 - Encephalopathy, unspecified SNOMED: 29886308, 190783215 (5) UTI (urinary tract infection) ICD Codes: N39.0 - Urinary tract infection, site not specified SNOMED: 27303549 (6) Gallstone ICD Codes: K80.20 - Calculus of gallbladder without cholecystitis without obstruction SNOMED: 237096324 (7) Aspiration pneumonia ICD Codes: J69.0 - Pneumonitis due to inhalation of food and vomit SNOMED: 499351085, 466855525 Qualifiers: Qualified Codes: J69.0 - Pneumonitis due to inhalation of food and vomit (8) Acute respiratory failure with hypoxia ICD Codes: J96.01 - Acute respiratory failure with hypoxia SNOMED: 10050817, 332232766 (9) Anemia, chronic disease ICD Codes: D63.8 - Anemia in other chronic diseases classified elsewhere SNOMED: 537455339, 944020183 Status: progressing Assessment/Plan sepsis and uti resp failure reviewed chart and labs sob improving Subjective ROS Limited/Unobtainable: Yes Constitutional: Reports: no symptoms Allergies: Coded Allergies: No Known Allergies (Unverified , 12/05/15) Objective Last 24 Hour Vital Signs Date Time Temp Pulse Resp B/P Pulse Ox O2 Delivery O2 Flow Rate FiO2 12/22/16 11:17 98.2 75 19 106/65 97 Venturi Mask 12/22/16 08:30 98.4 79 17 113/69 100 Venturi Mask 50 12/22/16 07:54 69 12/22/16 04:00 72 12/22/16 04:00 97.9 84 18 128/80 100 Venturi Mask 15.0 12/22/16 01:00 78 30 134/80 99 Venturi Mask 50 12/22/16 00:00 79 12/22/16 00:00 99.0 75 28 134/87 97 Venturi Mask 50 12/21/16 23:00 74 29 134/111 97 Venturi Mask 50 12/21/16 22:00 98.7 82 25 121/77 97 Venturi Mask 50 12/21/16 21:00 99.9 96 25 134/83 97 Venturi Mask 50 12/21/16 20:40 100.0 12/21/16 20:00 98 12/21/16 20:00 100.8 104 31 144/81 97 Venturi Mask 50 12/21/16 19:00 100 25 146/102 96 Venturi Mask 55 12/21/16 18:00 105 25 146/74 95 Venturi Mask 55 12/21/16 17:00 99 26 130/82 95 Venturi Mask 55 12/21/16 16:00 99.4 83 36 119/71 98 Venturi Mask 55 12/21/16 16:00 82 12/21/16 15:00 100 20 139/77 98 Venturi Mask 55 12/21/16 14:00 77 30 123/73 98 Venturi Mask 55 12/21/16 13:00 90 27 133/90 96 Venturi Mask 55 Intake and Output 12/21/16 12/22/16 19:00 07:00 Intake Total 1094.799 ml 1074.799 ml Output Total 1285 ml 995 ml Balance -190.201 ml 79.799 ml Intake IV Total 1094.799 ml 1074.799 ml Output Urine Total 1285 ml 995 ml Laboratory Tests 12/21/16 12:30: Haptoglobin 186, Iron Level 13L, Total Iron Binding Capacity 335, Percent Iron Saturation 4L, Unsaturated Iron Binding 322, Troponin I 0.46*H, Vitamin B12 Level 693, Folate 12.7 12/21/16 12:31: Reticulocyte Count 1.1 12/21/16 17:00: White Blood Count 24.1*H, Red Blood Count 3.68L, Hemoglobin 8.9L, Hematocrit 26.5L, Mean Corpuscular Volume 72L, Mean Corpuscular Hemoglobin 24.3L, Mean Corpuscular Hemoglobin Concent 33.8, Red Cell Distribution Width 15.8H, Platelet Count 122L, Mean Platelet Volume 11.9H, Neutrophils (%) (Auto) , Lymphocytes (%) (Auto) , Monocytes (%) (Auto) , Eosinophils (%) (Auto) , Basophils (%) (Auto) , Differential Total Cells Counted 100, Neutrophils % ( Manual) 77H, Lymphocytes % (Manual) 6L, Monocytes % (Manual) 4, Eosinophils % ( Manual) 0, Basophils % (Manual) 0, Band Neutrophils 13H, Platelet Estimate DecreasedL, Platelet Morphology Normal, Polychromasia 1+, Poikilocytosis 1+, Anisocytosis 1+, Microcytosis 1+, Ovalocytes 1+, Ferritin 58 12/21/16 20:30: Urine Total Protein [Pending], Urine Albumin (%) [Pending], Urine Alpha-1- Globulins (%) [Pending], Urine Jeish-6-Njuttlgfv (%) [Pending], Urine Beta- Globulin (%) [Pending], Urine Gamma Globulin (%) [Pending], Ur Protein Electrophoresis M-Kranthi [Pending], Urine Protein Electrophoresis Intrp [Pending] 12/21/16 20:50: Vancomycin Level Trough 9.8 12/22/16 04:30: White Blood Count 18.5H, Red Blood Count 3.84L, Hemoglobin 8.4L, Hematocrit 27.4L, Mean Corpuscular Volume 71L, Mean Corpuscular Hemoglobin 21.8L, Mean Corpuscular Hemoglobin Concent 30.5L, Red Cell Distribution Width 16.1H, Platelet Count 143L, Mean Platelet Volume 11.8H, Neutrophils (%) (Auto) , Lymphocytes (%) (Auto) , Monocytes (%) (Auto) , Eosinophils (%) (Auto) , Basophils (%) (Auto) , Differential Total Cells Counted 100, Neutrophils % ( Manual) 90H, Lymphocytes % (Manual) 4L, Monocytes % (Manual) 5, Eosinophils % ( Manual) 1, Basophils % (Manual) 0, Band Neutrophils 0, Platelet Estimate DecreasedL, Platelet Morphology Normal, Hypochromasia 2+, Anisocytosis 1+, Microcytosis 2+, Prothrombin Time 12.3H, Prothromb Time International Ratio 1.2H , Activated Partial Thromboplast Time 125H, Sodium Level 137, Potassium Level 3.5, Chloride Level 101, Carbon Dioxide Level 25, Anion Gap 11, Blood Urea Nitrogen 15, Creatinine 1.0, Estimat Glomerular Filtration Rate > 60, Glucose Level 110H, Calcium Level 8.7, Phosphorus Level 2.3L, Magnesium Level 1.6L, Total Bilirubin 0.5, Aspartate Amino Transf (AST/SGOT) 38, Alanine Aminotransferase (ALT/SGPT) 32, Alkaline Phosphatase 38L, Total Protein 6.4L, Albumin 2.8L, Globulin 3.6, Albumin/Globulin Ratio 0.7L Height (Feet): 6 Height (Inches): 0.00 Weight (Pounds): 185 General Appearance: confused EENT: PERRL/EOMI Neck: supple Cardiovascular: normal rate Respiratory/Chest: lungs clear Daniel Ramachandran MD Dec 22, 2016 12:28
--- NOTE | 2016-12-22 14:29 | Infectious Diseases Prog Note ---
Assessment/Plan Problems: (1) HCAP (healthcare-associated pneumonia) Assessment & Plan: suspect aspiration, continue levaquin vancomycin and zosyn empirically, pending sputum culture (2) Severe sepsis with septic shock Assessment & Plan: with leukocytosis, improving after adding levaquin . await blood culture and continue zosyn with vancomycin empirically. (3) CHF (congestive heart failure) Assessment & Plan: continue diuresis, consult cardiology (4) COPD (chronic obstructive pulmonary disease) Assessment & Plan: continue inhalers , with antibiotics, pulmonary is following (5) Acute respiratory failure with hypoxia Assessment & Plan: due to pneumonia, on BIPAP , pulmonary is following (6) MAR (acute kidney injury) Assessment & Plan: due to sepsis, continue gentle hydration, adjust meds as per creatinine clearance .consult nephrology (7) Elevated troponin Assessment & Plan: management as per cardiology , continue tele monitor Subjective ROS Limited/Unobtainable: Yes Allergies: Coded Allergies: No Known Allergies (Unverified , 12/05/15) Subjective he is still on venturi mask, awake and alert, coughing with rales, , not in distress, afebrile. Objective Vital Signs Last 24 Hour Vital Signs Date Time Temp Pulse Resp B/P Pulse Ox O2 Delivery O2 Flow Rate FiO2 12/22/16 11:44 71 12/22/16 11:17 98.2 75 19 106/65 97 Venturi Mask 12/22/16 08:30 98.4 79 17 113/69 100 Venturi Mask 50 12/22/16 07:54 69 12/22/16 04:00 72 12/22/16 04:00 97.9 84 18 128/80 100 Venturi Mask 15.0 12/22/16 01:00 78 30 134/80 99 Venturi Mask 50 12/22/16 00:00 79 12/22/16 00:00 99.0 75 28 134/87 97 Venturi Mask 50 12/21/16 23:00 74 29 134/111 97 Venturi Mask 50 12/21/16 22:00 98.7 82 25 121/77 97 Venturi Mask 50 12/21/16 21:00 99.9 96 25 134/83 97 Venturi Mask 50 12/21/16 20:40 100.0 12/21/16 20:00 98 12/21/16 20:00 100.8 104 31 144/81 97 Venturi Mask 50 12/21/16 19:00 100 25 146/102 96 Venturi Mask 55 12/21/16 18:00 105 25 146/74 95 Venturi Mask 55 12/21/16 17:00 99 26 130/82 95 Venturi Mask 55 12/21/16 16:00 99.4 83 36 119/71 98 Venturi Mask 55 12/21/16 16:00 82 12/21/16 15:00 100 20 139/77 98 Venturi Mask 55 Height (Feet): 6 Height (Inches): 0.00 Weight (Pounds): 185 General Appearance: WD/WN, no acute distress HEENT: normocephalic, atraumatic, anicteric, no JVD Respiratory/Chest: chest wall non-tender, no respiratory distress, no accessory muscle use, decreased breath sounds, crackles/rales, expiratory wheezing Cardiovascular: normal peripheral pulses, normal rate, regular rhythm, no gallop/murmur Abdomen: normal bowel sounds, soft, non tender, no organomegaly, non distended , no mass, no scars Extremities: no cyanosis, no clubbing Skin: no rash, no lesions Microbiology Date/Time Source Procedure Growth Status 12/20/16 02:30 Blood Blood Culture - Preliminary NO GROWTH AFTER 48 HOURS Resulted 12/20/16 02:15 Blood Blood Culture - Preliminary NO GROWTH AFTER 48 HOURS Resulted 12/20/16 11:35 Sputum Gram Stain - Final Complete 12/20/16 11:35 Sputum Sputum Culture - Final NORMAL UPPER RESPIRATORY TELLO PRESENT Complete 12/20/16 02:52 Nasal Nares MRSA Culture - Final NO METHICILLIN RESISTANT STAPH AUREUS... Complete 12/20/16 02:52 Rectal Mucosa VRE Culture - Final Enterococcus Faecalis - Vre Complete Laboratory Tests Test 12/21/16 17:00 12/21/16 20:30 12/21/16 20:50 12/22/16 04:30 White Blood Count 24.1 K/UL (4.8-10.8) *H 18.5 K/UL (4.8-10.8) H Red Blood Count 3.68 M/UL (4.70-6.10) L 3.84 M/UL (4.70-6.10) L Hemoglobin 8.9 G/DL (14.2-18.0) L 8.4 G/DL (14.2-18.0) L Hematocrit 26.5 % (42.0-52.0) L 27.4 % (42.0-52.0) L Mean Corpuscular Volume 72 FL (80-99) L 71 FL (80-99) L Mean Corpuscular Hemoglobin 24.3 PG (27.0-31.0) L 21.8 PG (27.0-31.0) L Mean Corpuscular Hemoglobin Concent 33.8 G/DL (32.0-36.0) 30.5 G/DL (32.0-36.0) L Red Cell Distribution Width 15.8 % (11.6-14.8) H 16.1 % (11.6-14.8) H Platelet Count 122 K/UL (150-450) L 143 K/UL (150-450) L Mean Platelet Volume 11.9 FL (6.5-10.1) H 11.8 FL (6.5-10.1) H Neutrophils (%) (Auto) % (45.0-75.0) % (45.0-75.0) Lymphocytes (%) (Auto) % (20.0-45.0) % (20.0-45.0) Monocytes (%) (Auto) % (1.0-10.0) % (1.0-10.0) Eosinophils (%) (Auto) % (0.0-3.0) % (0.0-3.0) Basophils (%) (Auto) % (0.0-2.0) % (0.0-2.0) Differential Total Cells Counted 100 100 Neutrophils % (Manual) 77 % (45-75) H 90 % (45-75) H Lymphocytes % (Manual) 6 % (20-45) L 4 % (20-45) L Monocytes % (Manual) 4 % (1-10) 5 % (1-10) Eosinophils % (Manual) 0 % (0-3) 1 % (0-3) Basophils % (Manual) 0 % (0-2) 0 % (0-2) Band Neutrophils 13 % (0-8) H 0 % (0-8) Platelet Estimate Decreased L Decreased L Platelet Morphology Normal Normal Polychromasia 1+ Poikilocytosis 1+ Anisocytosis 1+ 1+ Microcytosis 1+ 2+ Ovalocytes 1+ Ferritin 58 ng/mL (10-230) Urine Total Protein Pending Urine Albumin (%) Pending Urine Uqlwa-4-Jgqwclsnr (%) Pending Urine Dobpt-6-Prumnjxjw (%) Pending Urine Beta-Globulin (%) Pending Urine Gamma Globulin (%) Pending Ur Protein Electrophoresis M-Kranthi Pending Urine Protein Electrophoresis Intrp Pending Vancomycin Level Trough 9.8 ug/mL (5.0-12.0) Hypochromasia 2+ Prothrombin Time 12.3 SEC (9.30-11.50) H Prothromb Time International Ratio 1.2 (0.9-1.1) H Activated Partial Thromboplast Time 125 SEC (23-33) H Sodium Level 137 mEQ/L (135-145) Potassium Level 3.5 mEQ/L (3.4-4.9) Chloride Level 101 mEQ/L (98-107) Carbon Dioxide Level 25 mEQ/L (20-30) Anion Gap 11 (5-15) Blood Urea Nitrogen 15 mg/dL (7-23) Creatinine 1.0 mg/dL (0.7-1.2) Estimat Glomerular Filtration Rate > 60 mL/min (>60) Glucose Level 110 mg/dL (74-106) H Calcium Level 8.7 mg/dL (8.6-10.2) Phosphorus Level 2.3 mg/dL (2.5-4.8) L Magnesium Level 1.6 mg/dL (1.7-2.5) L Total Bilirubin 0.5 mg/dL (0.0-1.2) Aspartate Amino Transf (AST/SGOT) 38 U/L (5-40) Alanine Aminotransferase (ALT/SGPT) 32 U/L (3-41) Alkaline Phosphatase 38 U/L (40-129) L Total Protein 6.4 g/dL (6.6-8.7) L Albumin 2.8 g/dL (3.5-5.2) L Globulin 3.6 g/dL Albumin/Globulin Ratio 0.7 (1.0-2.7) L Test 12/22/16 12:30 Activated Partial Thromboplast Time 71 SEC (23-33) H Current Medications Medications (Trade) Dose Ordered Sig/Gloria Route PRN Reason Start Time Stop Time Status Last Admin Dose Admin Acetaminophen (Tylenol) 650 mg Q4H PRN ORAL Mild Pain (Pain Scale 1-3) 12/22/16 02:15 01/21/17 02:14 Acetaminophen (Tylenol) 650 mg Q4H PRN RECTAL fever > 100.5F 12/22/16 04:00 01/21/17 03:59 Bisacodyl (Dulcolax) 10 mg DAILYPRN PRN RECTAL Constipation 12/22/16 10:15 01/21/17 10:14 Dextrose/Sodium Chloride 1,000 ml @ 50 mls/hr Q20H IV 12/22/16 02:00 01/21/17 01:59 12/22/16 03:57 Heparin Sodium/ Dextrose (Heparin) 500 ml @ 25.175 mls/ hr adjust per protocol IV 12/22/16 06:25 01/21/17 06:24 12/22/16 13:30 Levofloxacin 100 ml @ 100 mls/hr Q24H IVPB 12/22/16 17:00 12/29/16 16:59 Lorazepam (Ativan 2mg/ml 1ml) 0.5 mg Q4H PRN IV For Anxiety 12/22/16 02:15 12/29/16 02:14 Magnesium Hydroxide (Mom) 30 ml HSPRN PRN ORAL Constipation 12/22/16 10:15 01/21/17 10:14 Morphine Sulfate (Morphine Sulfate) 2 mg Q6H PRN IVP Moderate Pain (Pain Scale 4-6) 12/22/16 04:15 12/29/16 04:14 Nitroglycerin (Ntg) 0.4 mg Q5M PRN SL Prn Chest Pain 12/22/16 02:00 Ondansetron HCl (Zofran) 4 mg Q6H PRN IVP Nausea & Vomiting 12/22/16 04:15 01/21/17 04:14 Pantoprazole (Protonix) 40 mg DAILY IV 12/22/16 09:00 01/21/17 08:59 12/22/16 09:09 Piperacillin Sod/ Tazobactam Sod 4.5 gm/Sodium Chloride 110 ml @ 27.5 mls/hr Q8HR@0300,1100,1900 IVPB 12/22/16 03:00 4/20/17 02:59 12/22/16 11:13 Promethazine HCl/ Codeine (Phenergan with Codeine) 5 ml Q4H PRN ORAL For Cough 12/22/16 02:15 01/21/17 02:14 Temazepam (Restoril) 15 mg HSPRN PRN ORAL Insomnia 12/22/16 10:15 12/29/16 10:14 Vancomycin HCl 1 ea 1 ea DAILY PRN MISC PER RX PROTOCOL 12/22/16 09:00 01/21/17 08:59 Vancomycin HCl/ Dextrose (Vancomycin/D5W) 275 ml @ 183.708 mls/hr Q12H IVPB 12/22/16 10:00 12/27/16 09:59 12/22/16 09:11 Frankie Ratliff M.D. Dec 22, 2016 14:29
--- NOTE | 2016-12-22 15:18 | General Progress Note ---
Assessment/Plan Assessment/Plan ASSESSMENT: 1. Right lower extremity deep venous thrombosis. Has a Right common femoral clot. Has been on heparin gtt as well as coumadin, INR has been btw 2-3 2. Anemia 2/2 hemodilution 3. Coagulopathy secondary to heparin drip. 4. Anemia secondary to iron deficiency - continue currently on iv iron 5. Decrease in hemoglobin and hematocrit, rule out gastrointestinal bleed. 6. Leukocytosis likely secondary to steroids. 7. Thrombocytopenia secondary to hemodilution as well. 8. Elevated blood sugar. 9. Elevated troponin, has been seen by Cardiology service. 10. Hypoxia. RECOMMENDATIONS: 1. Monitor counts. 2. Continue anticoagulation with heparin gtt 3. Continue coumadin 4. Appreciate Cardiology and Pulmonary recs 5. Begin on iv iron 6. GI prophylaxis with PPI. 7. Antibiotics as needed. 8. Appreciate pulm/cc recs 9. Imaging has been reviewed. 10. Pain control. 11. Appreciate consultation!! Subjective Constitutional: Reports: no symptoms HEENT: Reports: no symptoms Cardiovascular: Reports: no symptoms Respiratory: Reports: no symptoms Gastrointestinal/Abdominal: Reports: no symptoms Genitourinary: Reports: no symptoms Neurologic/Psychiatric: Reports: no symptoms Endocrine: Reports: no symptoms Hematologic/Lymphatic: Reports: anemia Allergies: Coded Allergies: No Known Allergies (Unverified , 12/05/15) Subjective on ventirumask, on heparin gtt, coumadin started as well Objective Last 24 Hour Vital Signs Date Time Temp Pulse Resp B/P Pulse Ox O2 Delivery O2 Flow Rate FiO2 12/22/16 11:44 71 12/22/16 11:17 98.2 75 19 106/65 97 Venturi Mask 12/22/16 08:30 98.4 79 17 113/69 100 Venturi Mask 50 12/22/16 07:54 69 12/22/16 04:00 72 12/22/16 04:00 97.9 84 18 128/80 100 Venturi Mask 15.0 12/22/16 01:00 78 30 134/80 99 Venturi Mask 50 12/22/16 00:00 79 12/22/16 00:00 99.0 75 28 134/87 97 Venturi Mask 50 12/21/16 23:00 74 29 134/111 97 Venturi Mask 50 12/21/16 22:00 98.7 82 25 121/77 97 Venturi Mask 50 12/21/16 21:00 99.9 96 25 134/83 97 Venturi Mask 50 12/21/16 20:40 100.0 12/21/16 20:00 98 12/21/16 20:00 100.8 104 31 144/81 97 Venturi Mask 50 12/21/16 19:00 100 25 146/102 96 Venturi Mask 55 12/21/16 18:00 105 25 146/74 95 Venturi Mask 55 12/21/16 17:00 99 26 130/82 95 Venturi Mask 55 12/21/16 16:00 99.4 83 36 119/71 98 Venturi Mask 55 12/21/16 16:00 82 Intake and Output 12/21/16 12/22/16 19:00 07:00 Intake Total 1094.799 ml 1074.799 ml Output Total 1285 ml 995 ml Balance -190.201 ml 79.799 ml Intake IV Total 1094.799 ml 1074.799 ml Output Urine Total 1285 ml 995 ml Laboratory Tests 12/21/16 17:00: White Blood Count 24.1*H, Red Blood Count 3.68L, Hemoglobin 8.9L, Hematocrit 26.5L, Mean Corpuscular Volume 72L, Mean Corpuscular Hemoglobin 24.3L, Mean Corpuscular Hemoglobin Concent 33.8, Red Cell Distribution Width 15.8H, Platelet Count 122L, Mean Platelet Volume 11.9H, Neutrophils (%) (Auto) , Lymphocytes (%) (Auto) , Monocytes (%) (Auto) , Eosinophils (%) (Auto) , Basophils (%) (Auto) , Differential Total Cells Counted 100, Neutrophils % ( Manual) 77H, Lymphocytes % (Manual) 6L, Monocytes % (Manual) 4, Eosinophils % ( Manual) 0, Basophils % (Manual) 0, Band Neutrophils 13H, Platelet Estimate DecreasedL, Platelet Morphology Normal, Polychromasia 1+, Poikilocytosis 1+, Anisocytosis 1+, Microcytosis 1+, Ovalocytes 1+, Ferritin 58 12/21/16 20:30: Urine Total Protein [Pending], Urine Albumin (%) [Pending], Urine Alpha-1- Globulins (%) [Pending], Urine Mrrmm-4-Dhwjpqaso (%) [Pending], Urine Beta- Globulin (%) [Pending], Urine Gamma Globulin (%) [Pending], Ur Protein Electrophoresis M-Kranthi [Pending], Urine Protein Electrophoresis Intrp [Pending] 12/21/16 20:50: Vancomycin Level Trough 9.8 12/22/16 04:30: White Blood Count 18.5H, Red Blood Count 3.84L, Hemoglobin 8.4L, Hematocrit 27.4L, Mean Corpuscular Volume 71L, Mean Corpuscular Hemoglobin 21.8L, Mean Corpuscular Hemoglobin Concent 30.5L, Red Cell Distribution Width 16.1H, Platelet Count 143L, Mean Platelet Volume 11.8H, Neutrophils (%) (Auto) , Lymphocytes (%) (Auto) , Monocytes (%) (Auto) , Eosinophils (%) (Auto) , Basophils (%) (Auto) , Differential Total Cells Counted 100, Neutrophils % ( Manual) 90H, Lymphocytes % (Manual) 4L, Monocytes % (Manual) 5, Eosinophils % ( Manual) 1, Basophils % (Manual) 0, Band Neutrophils 0, Platelet Estimate DecreasedL, Platelet Morphology Normal, Anisocytosis 1+, Microcytosis 2+, Hypochromasia 2+, Prothrombin Time 12.3H, Prothromb Time International Ratio 1.2H, Activated Partial Thromboplast Time 125H, Sodium Level 137, Potassium Level 3.5, Chloride Level 101, Carbon Dioxide Level 25, Anion Gap 11, Blood Urea Nitrogen 15, Creatinine 1.0, Estimat Glomerular Filtration Rate > 60, Glucose Level 110H, Calcium Level 8.7, Phosphorus Level 2.3L, Magnesium Level 1.6L, Total Bilirubin 0.5, Aspartate Amino Transf (AST/SGOT) 38, Alanine Aminotransferase (ALT/SGPT) 32, Alkaline Phosphatase 38L, Total Protein 6.4L, Albumin 2.8L, Globulin 3.6, Albumin/Globulin Ratio 0.7L 12/22/16 12:30: Activated Partial Thromboplast Time 71H Height (Feet): 6 Height (Inches): 0.00 Weight (Pounds): 185 General Appearance: no apparent distress EENT: normal ENT inspection Neck: normal alignment Cardiovascular: regular rhythm Respiratory/Chest: normal breath sounds Abdomen: soft Extremities: non-tender Edema: 1+ Leg (L), 1+ Leg (R) Edema: mild edema Neurologic: alert Skin: normal pigmentation Gilberto Freedman Dec 22, 2016 15:18
--- NOTE | 2016-12-22 15:20 | Cardiac Electrophysiology PN ---
Assessment/Plan Assessment/Plan 1. Hypotension, resolved with IV fluids and intravenous antibiotics . Final echocardiogram EF 60%. 2. Troponin leak 0.43 and 0.46. Levels flat and nonspecific. No renal failure. Patient comfortable and nonverbal and ECG completely normal and EF 60%. Could be due to transient hypotension. Hold off on aspirin for severe acute anemia and hold off beta uli for hypotension. 3. Increase WBC from 6.9 to >20.On IV abx per ID 4. Anemia with 3 gm drop in HB from 11 to 8. No obvious gi bleed. ? Dilutional. On heparin drip per Dr Tesfaye. 5. Acute RCFV DVT on Heparin and Coumadin per Dr. Tesfaye. Watch for drop in Hb. Stool OB pending. MARY KAY RN Subjective Subjective Transferred out of ICU. No arrhythmias overnight.Seems comfortable.Nonverbal. Objective Last 24 Hour Vital Signs Date Time Temp Pulse Resp B/P Pulse Ox O2 Delivery O2 Flow Rate FiO2 12/22/16 11:44 71 12/22/16 11:17 98.2 75 19 106/65 97 Venturi Mask 12/22/16 08:30 98.4 79 17 113/69 100 Venturi Mask 50 12/22/16 07:54 69 12/22/16 04:00 72 12/22/16 04:00 97.9 84 18 128/80 100 Venturi Mask 15.0 12/22/16 01:00 78 30 134/80 99 Venturi Mask 50 12/22/16 00:00 79 12/22/16 00:00 99.0 75 28 134/87 97 Venturi Mask 50 12/21/16 23:00 74 29 134/111 97 Venturi Mask 50 12/21/16 22:00 98.7 82 25 121/77 97 Venturi Mask 50 12/21/16 21:00 99.9 96 25 134/83 97 Venturi Mask 50 12/21/16 20:40 100.0 12/21/16 20:00 98 12/21/16 20:00 100.8 104 31 144/81 97 Venturi Mask 50 12/21/16 19:00 100 25 146/102 96 Venturi Mask 55 12/21/16 18:00 105 25 146/74 95 Venturi Mask 55 12/21/16 17:00 99 26 130/82 95 Venturi Mask 55 12/21/16 16:00 99.4 83 36 119/71 98 Venturi Mask 55 12/21/16 16:00 82 Intake and Output 12/21/16 12/22/16 19:00 07:00 Intake Total 1094.799 ml 1074.799 ml Output Total 1285 ml 995 ml Balance -190.201 ml 79.799 ml Intake IV Total 1094.799 ml 1074.799 ml Output Urine Total 1285 ml 995 ml Laboratory Tests Test 12/21/16 17:00 12/21/16 20:30 12/21/16 20:50 12/22/16 04:30 White Blood Count 24.1 K/UL (4.8-10.8) *H 18.5 K/UL (4.8-10.8) H Red Blood Count 3.68 M/UL (4.70-6.10) L 3.84 M/UL (4.70-6.10) L Hemoglobin 8.9 G/DL (14.2-18.0) L 8.4 G/DL (14.2-18.0) L Hematocrit 26.5 % (42.0-52.0) L 27.4 % (42.0-52.0) L Mean Corpuscular Volume 72 FL (80-99) L 71 FL (80-99) L Mean Corpuscular Hemoglobin 24.3 PG (27.0-31.0) L 21.8 PG (27.0-31.0) L Mean Corpuscular Hemoglobin Concent 33.8 G/DL (32.0-36.0) 30.5 G/DL (32.0-36.0) L Red Cell Distribution Width 15.8 % (11.6-14.8) H 16.1 % (11.6-14.8) H Platelet Count 122 K/UL (150-450) L 143 K/UL (150-450) L Mean Platelet Volume 11.9 FL (6.5-10.1) H 11.8 FL (6.5-10.1) H Neutrophils (%) (Auto) % (45.0-75.0) % (45.0-75.0) Lymphocytes (%) (Auto) % (20.0-45.0) % (20.0-45.0) Monocytes (%) (Auto) % (1.0-10.0) % (1.0-10.0) Eosinophils (%) (Auto) % (0.0-3.0) % (0.0-3.0) Basophils (%) (Auto) % (0.0-2.0) % (0.0-2.0) Differential Total Cells Counted 100 100 Neutrophils % (Manual) 77 % (45-75) H 90 % (45-75) H Lymphocytes % (Manual) 6 % (20-45) L 4 % (20-45) L Monocytes % (Manual) 4 % (1-10) 5 % (1-10) Eosinophils % (Manual) 0 % (0-3) 1 % (0-3) Basophils % (Manual) 0 % (0-2) 0 % (0-2) Band Neutrophils 13 % (0-8) H 0 % (0-8) Platelet Estimate Decreased L Decreased L Platelet Morphology Normal Normal Polychromasia 1+ Poikilocytosis 1+ Anisocytosis 1+ 1+ Microcytosis 1+ 2+ Ovalocytes 1+ Ferritin 58 ng/mL (10-230) Urine Total Protein Pending Urine Albumin (%) Pending Urine Pooxu-9-Eurgdjqqe (%) Pending Urine Nfweh-3-Tyggkhzgi (%) Pending Urine Beta-Globulin (%) Pending Urine Gamma Globulin (%) Pending Ur Protein Electrophoresis M-Kranthi Pending Urine Protein Electrophoresis Intrp Pending Vancomycin Level Trough 9.8 ug/mL (5.0-12.0) Hypochromasia 2+ Prothrombin Time 12.3 SEC (9.30-11.50) H Prothromb Time International Ratio 1.2 (0.9-1.1) H Activated Partial Thromboplast Time 125 SEC (23-33) H Sodium Level 137 mEQ/L (135-145) Potassium Level 3.5 mEQ/L (3.4-4.9) Chloride Level 101 mEQ/L (98-107) Carbon Dioxide Level 25 mEQ/L (20-30) Anion Gap 11 (5-15) Blood Urea Nitrogen 15 mg/dL (7-23) Creatinine 1.0 mg/dL (0.7-1.2) Estimat Glomerular Filtration Rate > 60 mL/min (>60) Glucose Level 110 mg/dL (74-106) H Calcium Level 8.7 mg/dL (8.6-10.2) Phosphorus Level 2.3 mg/dL (2.5-4.8) L Magnesium Level 1.6 mg/dL (1.7-2.5) L Total Bilirubin 0.5 mg/dL (0.0-1.2) Aspartate Amino Transf (AST/SGOT) 38 U/L (5-40) Alanine Aminotransferase (ALT/SGPT) 32 U/L (3-41) Alkaline Phosphatase 38 U/L (40-129) L Total Protein 6.4 g/dL (6.6-8.7) L Albumin 2.8 g/dL (3.5-5.2) L Globulin 3.6 g/dL Albumin/Globulin Ratio 0.7 (1.0-2.7) L Test 12/22/16 12:30 Activated Partial Thromboplast Time 71 SEC (23-33) H Microbiology Date/Time Source Procedure Growth Status 12/20/16 02:30 Blood Blood Culture - Preliminary NO GROWTH AFTER 48 HOURS Resulted 12/20/16 02:15 Blood Blood Culture - Preliminary NO GROWTH AFTER 48 HOURS Resulted 12/20/16 11:35 Sputum Gram Stain - Final Complete 12/20/16 11:35 Sputum Sputum Culture - Final NORMAL UPPER RESPIRATORY TELLO PRESENT Complete 12/20/16 02:52 Nasal Nares MRSA Culture - Final NO METHICILLIN RESISTANT STAPH AUREUS... Complete 12/20/16 02:52 Rectal Mucosa VRE Culture - Final Enterococcus Faecalis - Vre Complete Objective HEAD AND NECK: No JVD. LUNGS: Coarse rhonchi. CARDIOVASCULAR: Shows regular S1 and S2 with no gallop or murmur. ABDOMEN: Soft. EXTREMITIES: No pitting edema, but has lower extremities of contraction. VOLODYMYR HOSKINS Dec 22, 2016 15:20
[2016-12-22] MEDS ORDERED: Warfarin Sodium 5mg ORAL ONE (17:00)
[2016-12-22] MEDS: Iron Sucrose 100 MG in NS 55 ML IVPB SCH (20:52)
[2016-12-23 00:08] VITALS: BP 122/60
[2016-12-23] MEDS: Piperacillin/Tazobactam 4.5 GM in NS 110 ML IVPB SCH ×3 (02:41→18:47)
[2016-12-23 04:10] VITALS: BP 111/58
[2016-12-23 07:10] LABS: ALBUMIN 48.5 % (.); ALPHA-2 GLOB URINE 11.5 % (.); GAMMA GLOBULIN URINE 11.7 % (.)
[2016-12-23 07:50] VITALS: BP 130/66
[2016-12-23 08:03] LABS: MEAN CORPUSCULAR HEMOGLOBIN 21.5 PG (27.0-31.0); MEAN CORPUSCULAR HGB CONC 30.3 G/DL (32.0-36.0); MEAN CORPUSCULAR VOLUME 71 FL (80-99); MEAN PLATELET VOLUME 11.5 FL (6.5-10.1); PLATELET COUNT 136 K/UL (150-450); RED BLOOD COUNT 3.78 M/UL (4.70-6.10); RED CELL DISTRIBUTION WIDTH 16.3 % (11.6-14.8); WHITE BLOOD COUNT 6.8 K/UL (4.8-10.8)
[2016-12-23] MEDS: Pantoprazole Inj IV SCH (08:25)
[2016-12-23 08:45] LABS: ALANINE AMINOTRANSFERASE 33 U/L (3-41); ALBUMIN/GLOBULIN RATIO 0.7 (1.0-2.7); ANION GAP 11 (5-15); ASPARTATE AMINO TRANSFERASE 43 U/L (5-40); CALCIUM 8.6 mg/dL (8.6-10.2); CARBON DIOXIDE 25 mEQ/L (20-30); CHLORIDE 102 mEQ/L (98-107); GLOMERULAR FILTRATION RATE > 60 mL/min (>60); HEMOLYSIS 1; MAGNESIUM 1.6 mg/dL (1.7-2.5); PHOSPHORUS 2.5 mg/dL (2.5-4.8); POTASSIUM 3.1 mEQ/L (3.4-4.9); SODIUM 138 mEQ/L (135-145); TOTAL PROTEIN 5.9 g/dL (6.6-8.7)
[2016-12-23] MEDS ORDERED: NS Irrig 1000ml ONE (10:05)
[2016-12-23] MEDS ORDERED: D5 1/2NS 1000ml IV ONE ×2 (10:05→10:51)
[2016-12-23] MEDS ORDERED: NS 275ml ONE (10:05)
[2016-12-23] MEDS ORDERED: Tubing IV Secondary IV ONE ×2 (10:05→10:51)
[2016-12-23] MEDS: Vancomycin 1 GM in D5W 275 ML IVPB SCH (10:43)
[2016-12-23 11:38] VITALS: BP 101/49
[2016-12-23 12:04] LABS: ANISOCYTOSIS 1+; BAND NEUTROPHILS % (MANUAL) 0 % (0-8); BASOPHILS % (MANUAL) 0 % (0-2); EOSINOPHILS % (MANUAL) 3 % (0-3); HYPOCHROMASIA 1+; LYMPHOCYTES % (MANUAL) 6 % (20-45); MICROCYTES 1+; NEUTROPHILS % (MANUAL) 87 % (45-75); PLATELET ESTIMATE DECREASED; PLATELET MORPHOLOGY NORMAL; TOTAL CELLS COUNTED 100
[2016-12-23 12:08] LABS: INR 1.2 (0.9-1.1); PROTHROMBIN TIME 11.8 SEC (9.30-11.50)
--- NOTE | 2016-12-23 13:00 | General Progress Note ---
Assessment/Plan Problem List: (1) Hypernatremia ICD Codes: E87.0 - Hyperosmolality and hypernatremia SNOMED: 74533859 (2) Vomiting ICD Codes: R11.10 - Vomiting, unspecified SNOMED: 278106076 (3) Pancreatitis ICD Codes: K85.9 - Acute pancreatitis, unspecified SNOMED: 07496747 (4) Hiatal hernia ICD Codes: K44.9 - Diaphragmatic hernia without obstruction or gangrene SNOMED: 20548540 (5) Acid reflux ICD Codes: K21.9 - Gastro-esophageal reflux disease without esophagitis SNOMED: 226301527 (6) Lung nodule ICD Codes: R91.1 - Solitary pulmonary nodule SNOMED: 647469602 (7) LFTs abnormal ICD Codes: R79.89 - Other specified abnormal findings of blood chemistry SNOMED: 529005481 (8) HTN (hypertension) ICD Codes: I10 - Essential (primary) hypertension SNOMED: 64078678 (9) Acute kidney injury superimposed on chronic kidney disease ICD Codes: S37.009A - Unspecified injury of unspecified kidney, initial encounter; N18.9 - Chronic kidney disease, unspecified SNOMED: 39720374 (10) Aspiration pneumonia ICD Codes: J69.0 - Pneumonitis due to inhalation of food and vomit SNOMED: 757965305, 886636071 Qualifiers: Qualified Codes: J69.0 - Pneumonitis due to inhalation of food and vomit (11) Proteinuria ICD Codes: R80.9 - Proteinuria, unspecified SNOMED: 25842237, 540854779 Qualifiers: Qualified Codes: R80.9 - Proteinuria, unspecified (12) Anemia, chronic disease ICD Codes: D63.8 - Anemia in other chronic diseases classified elsewhere SNOMED: 278154495, 969496659 (13) Acute respiratory failure with hypoxia ICD Codes: J96.01 - Acute respiratory failure with hypoxia SNOMED: 94457952, 123929154 (14) Dehydration ICD Codes: E86.0 - Dehydration SNOMED: 07515187 (15) MAR (acute kidney injury) ICD Codes: N17.9 - Acute kidney failure, unspecified SNOMED: 27532687 (16) COPD (chronic obstructive pulmonary disease) ICD Codes: J44.9 - Chronic obstructive pulmonary disease, unspecified SNOMED: 17596714 (17) CHF (congestive heart failure) ICD Codes: I50.9 - Heart failure, unspecified SNOMED: 73451215 (18) Severe sepsis with septic shock ICD Codes: A41.9 - Sepsis, unspecified organism; R65.21 - Severe sepsis with septic shock SNOMED: 78369863 (19) HCAP (healthcare-associated pneumonia) ICD Codes: J18.9 - Pneumonia, unspecified organism SNOMED: 527132666 (20) Acute respiratory failure ICD Codes: J96.00 - Acute respiratory failure, unspecified whether with hypoxia or hypercapnia SNOMED: 93625875 (21) Schizophrenia ICD Codes: F20.9 - Schizophrenia, unspecified SNOMED: 18797491 (22) Gallstone ICD Codes: K80.20 - Calculus of gallbladder without cholecystitis without obstruction SNOMED: 969038982 (23) Anemia ICD Codes: D64.9 - Anemia, unspecified SNOMED: 523865080 (24) Osteoarthritis ICD Codes: M19.90 - Unspecified osteoarthritis, unspecified site SNOMED: 778793101 (25) Encephalopathy ICD Codes: G93.40 - Encephalopathy, unspecified SNOMED: 10684913, 814979684 (26) UTI (urinary tract infection) ICD Codes: N39.0 - Urinary tract infection, site not specified SNOMED: 92008865 (27) UTI (urinary tract infection) ICD Codes: N39.0 - Urinary tract infection, site not specified SNOMED: 11648383 (28) Elevated troponin ICD Codes: R74.8 - Abnormal levels of other serum enzymes SNOMED: 231319533, 164550766 (29) Pneumonia ICD Codes: J18.9 - Pneumonia, unspecified organism SNOMED: 073160583 Qualifiers: Qualified Codes: J18.1 - Lobar pneumonia, unspecified organism (30) Severe sepsis ICD Codes: A41.9 - Sepsis, unspecified organism; R65.20 - Severe sepsis without septic shock SNOMED: 93653607, 238633227 (31) Acute DVT (deep venous thrombosis) ICD Codes: I82.409 - Acute embolism and thrombosis of unspecified deep veins of unspecified lower extremity SNOMED: 492685784396430 Status: stable, progressing, tolerating diet Assessment/Plan o2 pulm tx abx cbc bmp am dc plan Subjective Constitutional: Reports: weakness Allergies: Coded Allergies: No Known Allergies (Unverified , 12/05/15) All Systems: reviewed and negative except above Subjective calm weak Objective Last 24 Hour Vital Signs Date Time Temp Pulse Resp B/P Pulse Ox O2 Delivery O2 Flow Rate FiO2 12/23/16 11:38 99.9 71 20 101/49 98 Venturi Mask 12/23/16 08:00 71 12/23/16 07:50 97.9 81 20 130/66 95 Venturi Mask 12/23/16 07:35 Venturi Mask 15.0 50 12/23/16 07:31 97 Venturi Mask 15.0 50 12/23/16 04:10 98.8 80 21 111/58 Venturi Mask 12/23/16 04:00 79 12/23/16 00:08 98.5 84 20 122/60 99 Venturi Mask 12/23/16 00:00 73 12/22/16 20:29 98.8 61 20 160/68 94 Venturi Mask 15.0 12/22/16 20:21 96 Venturi Mask 15.0 50 12/22/16 20:21 Venturi Mask 15.0 50 12/22/16 20:00 90 12/22/16 15:56 98.4 72 17 106/71 94 Venturi Mask 50 81 12/22/16 15:40 74 Intake and Output 12/22/16 12/23/16 19:00 07:00 Intake Total 1381.841 ml 1056.400 ml Output Total 600 ml 700 ml Balance 781.841 ml 356.400 ml Intake IV Total 1381.841 ml 1056.400 ml Output Urine Total 600 ml 700 ml Laboratory Tests 12/23/16 07:15: White Blood Count 6.8#, Red Blood Count 3.78L, Hemoglobin 8.1L, Hematocrit 26.8L , Mean Corpuscular Volume 71L, Mean Corpuscular Hemoglobin 21.5L, Mean Corpuscular Hemoglobin Concent 30.3L, Red Cell Distribution Width 16.3H, Platelet Count 136L, Mean Platelet Volume 11.5H, Neutrophils (%) (Auto) , Lymphocytes (%) (Auto) , Monocytes (%) (Auto) , Eosinophils (%) (Auto) , Basophils (%) (Auto) , Differential Total Cells Counted 100, Neutrophils % ( Manual) 87H, Lymphocytes % (Manual) 6L, Monocytes % (Manual) 4, Eosinophils % ( Manual) 3, Basophils % (Manual) 0, Band Neutrophils 0, Platelet Estimate DecreasedL, Platelet Morphology Normal, Hypochromasia 1+, Anisocytosis 1+, Microcytosis 1+, Sodium Level 138, Potassium Level 3.1L, Chloride Level 102, Carbon Dioxide Level 25, Anion Gap 11, Blood Urea Nitrogen 13, Creatinine 1.0, Estimat Glomerular Filtration Rate > 60, Glucose Level 95, Calcium Level 8.6, Phosphorus Level 2.5, Magnesium Level 1.6L, Total Bilirubin 0.5, Aspartate Amino Transf (AST/SGOT) 43H, Alanine Aminotransferase (ALT/SGPT) 33, Alkaline Phosphatase 41, Total Protein 5.9L, Albumin 2.5L, Globulin 3.4, Albumin/ Globulin Ratio 0.7L 12/23/16 09:30: Vancomycin Level Trough 15.2H 12/23/16 11:35: Prothrombin Time 11.8H, Prothromb Time International Ratio 1.2H Height (Feet): 6 Height (Inches): 0.00 Weight (Pounds): 185 General Appearance: lethargic, confused EENT: normal ENT inspection Neck: normal alignment Cardiovascular: normal peripheral pulses, normal rate, regular rhythm Respiratory/Chest: chest wall non-tender, lungs clear, normal breath sounds Abdomen: normal bowel sounds, non tender, soft Extremities: normal inspection Edema: no edema noted Arm (L), no edema noted Arm (R), no edema noted Leg (L), no edema noted Leg (R), no edema noted Pedal (L), no edema noted Pedal (R), no edema noted Generalized Neurologic: motor weakness Skin: normal pigmentation, warm/dry ALONDRA SINGH Dec 23, 2016 13:00
[2016-12-23 13:27] LABS: OTHERS PATHOLOGIST COMMENT
--- NOTE | 2016-12-23 13:29 | Cardiac Electrophysiology PN ---
Assessment/Plan Assessment/Plan 1. Hypotension, resolved with IV fluids and intravenous antibiotics . Final echocardiogram EF 60%. 2. Troponin leak 0.43 and 0.46. Levels flat and nonspecific. Patient comfortable and nonverbal and ECG completely normal and EF 60%. Could be due to transient hypotension. Hold off on aspirin for severe acute anemia and hold off beta uli for hypotension. 3. Increase WBC from 6.9 to >20. Normalized to 6.8 On IV abx per ID 4. Anemia with 3 gm drop in HB from 11 to 8. No obvious gi bleed. ? Dilutional. On heparin drip per Dr Tesfaye. 5. Acute RCFV DVT on Heparin and Coumadin per Dr. Tesfaye. Watch for drop in Hb. Stool OB pending. 6. Dysphagia. video swallow pending. MARY KAY RN DC tele Subjective Subjective No arrhythmias overnight.Seems comfortable.Nonverbal.No change. Objective Last 24 Hour Vital Signs Date Time Temp Pulse Resp B/P Pulse Ox O2 Delivery O2 Flow Rate FiO2 12/23/16 11:38 99.9 71 20 101/49 98 Venturi Mask 12/23/16 08:00 71 12/23/16 07:50 97.9 81 20 130/66 95 Venturi Mask 12/23/16 07:35 Venturi Mask 15.0 50 12/23/16 07:31 97 Venturi Mask 15.0 50 12/23/16 04:10 98.8 80 21 111/58 Venturi Mask 12/23/16 04:00 79 12/23/16 00:08 98.5 84 20 122/60 99 Venturi Mask 12/23/16 00:00 73 12/22/16 20:29 98.8 61 20 160/68 94 Venturi Mask 15.0 12/22/16 20:21 96 Venturi Mask 15.0 50 12/22/16 20:21 Venturi Mask 15.0 50 12/22/16 20:00 90 12/22/16 15:56 98.4 72 17 106/71 94 Venturi Mask 50 81 12/22/16 15:40 74 Intake and Output 12/22/16 12/23/16 19:00 07:00 Intake Total 1381.841 ml 1056.400 ml Output Total 600 ml 700 ml Balance 781.841 ml 356.400 ml Intake IV Total 1381.841 ml 1056.400 ml Output Urine Total 600 ml 700 ml Laboratory Tests Test 12/23/16 07:15 12/23/16 09:30 12/23/16 11:35 White Blood Count 6.8 K/UL (4.8-10.8) # Red Blood Count 3.78 M/UL (4.70-6.10) L Hemoglobin 8.1 G/DL (14.2-18.0) L Hematocrit 26.8 % (42.0-52.0) L Mean Corpuscular Volume 71 FL (80-99) L Mean Corpuscular Hemoglobin 21.5 PG (27.0-31.0) L Mean Corpuscular Hemoglobin Concent 30.3 G/DL (32.0-36.0) L Red Cell Distribution Width 16.3 % (11.6-14.8) H Platelet Count 136 K/UL (150-450) L Mean Platelet Volume 11.5 FL (6.5-10.1) H Neutrophils (%) (Auto) % (45.0-75.0) Lymphocytes (%) (Auto) % (20.0-45.0) Monocytes (%) (Auto) % (1.0-10.0) Eosinophils (%) (Auto) % (0.0-3.0) Basophils (%) (Auto) % (0.0-2.0) Differential Total Cells Counted 100 Neutrophils % (Manual) 87 % (45-75) H Lymphocytes % (Manual) 6 % (20-45) L Monocytes % (Manual) 4 % (1-10) Eosinophils % (Manual) 3 % (0-3) Basophils % (Manual) 0 % (0-2) Band Neutrophils 0 % (0-8) Platelet Estimate Decreased L Platelet Morphology Normal Hypochromasia 1+ Anisocytosis 1+ Microcytosis 1+ Sodium Level 138 mEQ/L (135-145) Potassium Level 3.1 mEQ/L (3.4-4.9) L Chloride Level 102 mEQ/L (98-107) Carbon Dioxide Level 25 mEQ/L (20-30) Anion Gap 11 (5-15) Blood Urea Nitrogen 13 mg/dL (7-23) Creatinine 1.0 mg/dL (0.7-1.2) Estimat Glomerular Filtration Rate > 60 mL/min (>60) Glucose Level 95 mg/dL (74-106) Calcium Level 8.6 mg/dL (8.6-10.2) Phosphorus Level 2.5 mg/dL (2.5-4.8) Magnesium Level 1.6 mg/dL (1.7-2.5) L Total Bilirubin 0.5 mg/dL (0.0-1.2) Aspartate Amino Transf (AST/SGOT) 43 U/L (5-40) H Alanine Aminotransferase (ALT/SGPT) 33 U/L (3-41) Alkaline Phosphatase 41 U/L (40-129) Total Protein 5.9 g/dL (6.6-8.7) L Albumin 2.5 g/dL (3.5-5.2) L Globulin 3.4 g/dL Albumin/Globulin Ratio 0.7 (1.0-2.7) L Vancomycin Level Trough 15.2 ug/mL (5.0-12.0) H Prothrombin Time 11.8 SEC (9.30-11.50) H Prothromb Time International Ratio 1.2 (0.9-1.1) H Objective HEAD AND NECK: No JVD. LUNGS: Coarse rhonchi. CARDIOVASCULAR: Regular S1 and S2 with no gallop or murmur. ABDOMEN: Soft. EXTREMITIES: No pitting edema, but has lower extremities of contraction. VOLODYMYR HOSKINS Dec 23, 2016 13:29
--- NOTE | 2016-12-23 14:10 | Pulmonology Progress Note ---
Assessment/Plan Problems: (1) Severe sepsis (2) Pneumonia (3) Acute respiratory failure (4) Acute DVT (deep venous thrombosis) (5) MAR (acute kidney injury) (6) Anemia (7) Encephalopathy Assessment/Plan IV antibiotics check cultures swallow study bioethics for Code status Subjective ROS Limited/Unobtainable: Yes Constitutional: Reports: anorexia, chills, fatigue, fever Respiratory: Reports: dyspnea at rest, dyspnea on exertion, pleuritic pain, productive cough, shortness of breath, sputum, wheezing Neurologic: Reports: confusion Allergies: Coded Allergies: No Known Allergies (Unverified , 12/05/15) Objective Last 24 Hour Vital Signs Date Time Temp Pulse Resp B/P Pulse Ox O2 Delivery O2 Flow Rate FiO2 12/23/16 12:00 77 12/23/16 11:38 99.9 71 20 101/49 98 Venturi Mask 12/23/16 08:00 71 12/23/16 07:50 97.9 81 20 130/66 95 Venturi Mask 12/23/16 07:35 Venturi Mask 15.0 50 12/23/16 07:31 97 Venturi Mask 15.0 50 12/23/16 04:10 98.8 80 21 111/58 Venturi Mask 12/23/16 04:00 79 12/23/16 00:08 98.5 84 20 122/60 99 Venturi Mask 12/23/16 00:00 73 12/22/16 20:29 98.8 61 20 160/68 94 Venturi Mask 15.0 12/22/16 20:21 96 Venturi Mask 15.0 50 12/22/16 20:21 Venturi Mask 15.0 50 12/22/16 20:00 90 12/22/16 15:56 98.4 72 17 106/71 94 Venturi Mask 50 81 12/22/16 15:40 74 Intake and Output 12/22/16 12/23/16 19:00 07:00 Intake Total 1381.841 ml 1056.400 ml Output Total 600 ml 700 ml Balance 781.841 ml 356.400 ml Intake IV Total 1381.841 ml 1056.400 ml Output Urine Total 600 ml 700 ml General Appearance: no acute distress HEENT: normocephalic, atraumatic, anicteric, PERRL Respiratory/Chest: chest wall non-tender, decreased breath sounds, accessory muscle use, rhonchi Cardiovascular: normal peripheral pulses, normal rate, regular rhythm, no JVD Abdomen: normal bowel sounds, soft, non tender, no organomegaly, non distended Genitourinary: normal external genitalia Extremities: no cyanosis Skin: no rash, lesions Neurologic/Psychiatric: unresponsiveness Laboratory Tests 12/23/16 07:15: White Blood Count 6.8#, Red Blood Count 3.78L, Hemoglobin 8.1L, Hematocrit 26.8L , Mean Corpuscular Volume 71L, Mean Corpuscular Hemoglobin 21.5L, Mean Corpuscular Hemoglobin Concent 30.3L, Red Cell Distribution Width 16.3H, Platelet Count 136L, Mean Platelet Volume 11.5H, Neutrophils (%) (Auto) , Lymphocytes (%) (Auto) , Monocytes (%) (Auto) , Eosinophils (%) (Auto) , Basophils (%) (Auto) , Differential Total Cells Counted 100, Neutrophils % ( Manual) 87H, Lymphocytes % (Manual) 6L, Monocytes % (Manual) 4, Eosinophils % ( Manual) 3, Basophils % (Manual) 0, Band Neutrophils 0, Platelet Estimate DecreasedL, Platelet Morphology Normal, Hypochromasia 1+, Anisocytosis 1+, Microcytosis 1+, Sodium Level 138, Potassium Level 3.1L, Chloride Level 102, Carbon Dioxide Level 25, Anion Gap 11, Blood Urea Nitrogen 13, Creatinine 1.0, Estimat Glomerular Filtration Rate > 60, Glucose Level 95, Calcium Level 8.6, Phosphorus Level 2.5, Magnesium Level 1.6L, Total Bilirubin 0.5, Aspartate Amino Transf (AST/SGOT) 43H, Alanine Aminotransferase (ALT/SGPT) 33, Alkaline Phosphatase 41, Total Protein 5.9L, Albumin 2.5L, Globulin 3.4, Albumin/ Globulin Ratio 0.7L 12/23/16 09:30: Vancomycin Level Trough 15.2H 12/23/16 11:35: Prothrombin Time 11.8H, Prothromb Time International Ratio 1.2H Current Medications Medications (Trade) Dose Ordered Sig/Gloria Route PRN Reason Start Time Stop Time Status Last Admin Dose Admin Acetaminophen (Tylenol) 650 mg Q4H PRN ORAL Mild Pain (Pain Scale 1-3) 12/22/16 02:15 01/21/17 02:14 Acetaminophen (Tylenol) 650 mg Q4H PRN RECTAL fever > 100.5F 12/22/16 04:00 01/21/17 03:59 Bisacodyl (Dulcolax) 10 mg DAILYPRN PRN RECTAL Constipation 12/22/16 10:15 01/21/17 10:14 Dextrose/Sodium Chloride 1,000 ml @ 50 mls/hr Q20H IV 12/22/16 02:00 01/21/17 01:59 12/22/16 23:29 Enoxaparin Sodium (Lovenox) 80 mg EVERY 12 HOURS SUBQ 12/23/16 21:00 01/22/17 20:59 Iron Sucrose 100 mg/Sodium Chloride 60 ml @ 240 mls/hr BEDTIME IVPB 12/22/16 21:00 12/26/16 21:14 12/22/16 20:52 Levofloxacin 100 ml @ 100 mls/hr Q24H IVPB 12/22/16 17:00 12/29/16 16:59 12/22/16 16:40 Lorazepam (Ativan 2mg/ml 1ml) 0.5 mg Q4H PRN IV For Anxiety 12/22/16 02:15 12/29/16 02:14 Magnesium Hydroxide (Mom) 30 ml HSPRN PRN ORAL Constipation 12/22/16 10:15 01/21/17 10:14 Morphine Sulfate (Morphine Sulfate) 2 mg Q6H PRN IVP Moderate Pain (Pain Scale 4-6) 12/22/16 04:15 12/29/16 04:14 Nitroglycerin (Ntg) 0.4 mg Q5M PRN SL Prn Chest Pain 12/22/16 02:00 Ondansetron HCl (Zofran) 4 mg Q6H PRN IVP Nausea & Vomiting 12/22/16 04:15 01/21/17 04:14 Pantoprazole (Protonix) 40 mg DAILY IV 12/22/16 09:00 01/21/17 08:59 12/23/16 08:25 Piperacillin Sod/ Tazobactam Sod/ Sodium Chloride (Zosyn/Sodium Chloride) 110 ml @ 27.5 mls/hr Q8HR@0300,1100,1900 IVPB 12/22/16 03:00 12/29/16 02:59 12/23/16 11:28 Promethazine HCl/ Codeine (Phenergan with Codeine) 5 ml Q4H PRN ORAL For Cough 12/22/16 02:15 01/21/17 02:14 Temazepam (Restoril) 15 mg HSPRN PRN ORAL Insomnia 12/22/16 10:15 12/29/16 10:14 Vancomycin HCl 1 ea 1 ea DAILY PRN MISC PER RX PROTOCOL 12/22/16 09:00 01/21/17 08:59 Vancomycin HCl/ Dextrose (Vancomycin/D5W) 275 ml @ 183.708 mls/hr Q12HR IVPB 12/23/16 21:00 12/28/16 20:59 ALMA LINDO Dec 23, 2016 14:10
--- NOTE | 2016-12-23 15:32 | General Progress Note ---
Assessment/Plan Status: stable Assessment/Plan ASSESSMENT: 1. Right lower extremity deep venous thrombosis. Has a Right common femoral clot. Has been on coumadin, INR has been btw 2-3 2. Anemia 2/2 hemodilution 3. Hematuria- held heparin gtt. 4. Anemia secondary to iron deficiency - continue currently on iv iron 5. Decrease in hemoglobin and hematocrit, rule out gastrointestinal bleed. 6. Leukocytosis has resolved d/t abx treatment. 7. Thrombocytopenia secondary to hemodilution as well. 8. Elevated blood sugar. 9. Elevated troponin, has been seen by Cardiology service. 10. Hypoxia. RECOMMENDATIONS: 1. Monitor counts. 2. Continue coumadin 3. Appreciate Cardiology and Pulmonary recs 4. Continue iv iron 5. GI prophylaxis with PPI. 6. Antibiotics as needed. 7. Appreciate pulm/cc recs 8. Imaging has been reviewed. 9. Pain control. 11. Appreciate consultation!! Subjective Constitutional: Reports: no symptoms HEENT: Reports: no symptoms Cardiovascular: Reports: no symptoms Respiratory: Reports: no symptoms Gastrointestinal/Abdominal: Reports: no symptoms Genitourinary: Reports: hematuria Neurologic/Psychiatric: Reports: weakness Endocrine: Reports: no symptoms Hematologic/Lymphatic: Reports: anemia Allergies: Coded Allergies: No Known Allergies (Unverified , 12/05/15) Subjective pt on venturi mask, on coumadin, no longer on heparin d/t hematuria Objective Last 24 Hour Vital Signs Date Time Temp Pulse Resp B/P Pulse Ox O2 Delivery O2 Flow Rate FiO2 12/23/16 12:00 77 12/23/16 11:38 99.9 71 20 101/49 98 Venturi Mask 12/23/16 08:00 71 12/23/16 07:50 97.9 81 20 130/66 95 Venturi Mask 12/23/16 07:35 Venturi Mask 15.0 50 12/23/16 07:31 97 Venturi Mask 15.0 50 12/23/16 04:10 98.8 80 21 111/58 Venturi Mask 12/23/16 04:00 79 12/23/16 00:08 98.5 84 20 122/60 99 Venturi Mask 12/23/16 00:00 73 12/22/16 20:29 98.8 61 20 160/68 94 Venturi Mask 15.0 12/22/16 20:21 96 Venturi Mask 15.0 50 12/22/16 20:21 Venturi Mask 15.0 50 12/22/16 20:00 90 12/22/16 15:56 98.4 72 17 106/71 94 Venturi Mask 50 81 12/22/16 15:40 74 Intake and Output 12/22/16 12/23/16 19:00 07:00 Intake Total 1381.841 ml 1056.400 ml Output Total 600 ml 700 ml Balance 781.841 ml 356.400 ml Intake IV Total 1381.841 ml 1056.400 ml Output Urine Total 600 ml 700 ml Laboratory Tests 12/23/16 07:15: White Blood Count 6.8#, Red Blood Count 3.78L, Hemoglobin 8.1L, Hematocrit 26.8L , Mean Corpuscular Volume 71L, Mean Corpuscular Hemoglobin 21.5L, Mean Corpuscular Hemoglobin Concent 30.3L, Red Cell Distribution Width 16.3H, Platelet Count 136L, Mean Platelet Volume 11.5H, Neutrophils (%) (Auto) , Lymphocytes (%) (Auto) , Monocytes (%) (Auto) , Eosinophils (%) (Auto) , Basophils (%) (Auto) , Differential Total Cells Counted 100, Neutrophils % ( Manual) 87H, Lymphocytes % (Manual) 6L, Monocytes % (Manual) 4, Eosinophils % ( Manual) 3, Basophils % (Manual) 0, Band Neutrophils 0, Platelet Estimate DecreasedL, Platelet Morphology Normal, Hypochromasia 1+, Anisocytosis 1+, Microcytosis 1+, Sodium Level 138, Potassium Level 3.1L, Chloride Level 102, Carbon Dioxide Level 25, Anion Gap 11, Blood Urea Nitrogen 13, Creatinine 1.0, Estimat Glomerular Filtration Rate > 60, Glucose Level 95, Calcium Level 8.6, Phosphorus Level 2.5, Magnesium Level 1.6L, Total Bilirubin 0.5, Aspartate Amino Transf (AST/SGOT) 43H, Alanine Aminotransferase (ALT/SGPT) 33, Alkaline Phosphatase 41, Total Protein 5.9L, Albumin 2.5L, Globulin 3.4, Albumin/ Globulin Ratio 0.7L 12/23/16 09:30: Vancomycin Level Trough 15.2H 12/23/16 11:35: Prothrombin Time 11.8H, Prothromb Time International Ratio 1.2H Height (Feet): 6 Height (Inches): 0.00 Weight (Pounds): 185 General Appearance: lethargic EENT: PERRL/EOMI Neck: non-tender Cardiovascular: normal peripheral pulses Respiratory/Chest: chest wall non-tender Abdomen: normal bowel sounds Extremities: normal range of motion Edema: no edema noted Leg (L), no edema noted Leg (R), no edema noted Pedal (L) , no edema noted Pedal (R) Neurologic: finished cloth checker II-XII grossly normal Skin: normal pigmentation, warm/dry Gilberto Freedman Dec 23, 2016 15:32
[2016-12-23 16:10] VITALS: BP 109/41
[2016-12-23] MEDS ORDERED: Warfarin Sodium 5mg ORAL SCH (17:00)
--- NOTE | 2016-12-23 17:31 | Infectious Diseases Prog Note ---
Assessment/Plan Problems: (1) HCAP (healthcare-associated pneumonia) Assessment & Plan: with Acinetobacter baumannii pansensitive, will continue levaquin vancomycin and zosyn empirically, pending further sputum culture results (2) Severe sepsis with septic shock Assessment & Plan: with leukocytosis, improving after adding levaquin . await blood culture and continue zosyn with vancomycin empirically. (3) CHF (congestive heart failure) Assessment & Plan: continue diuresis, cardiology is following (4) COPD (chronic obstructive pulmonary disease) Assessment & Plan: continue inhalers , with antibiotics, pulmonary is following (5) Acute respiratory failure with hypoxia Assessment & Plan: due to pneumonia, on BIPAP , pulmonary is following (6) MAR (acute kidney injury) Assessment & Plan: due to sepsis, continue gentle hydration, adjust meds as per creatinine clearance .consult nephrology (7) Elevated troponin Assessment & Plan: management as per cardiology , continue tele monitor Subjective ROS Limited/Unobtainable: Yes Allergies: Coded Allergies: No Known Allergies (Unverified , 12/05/15) Subjective he is still on venturi mask, awake and alert, coughing with rales, , not in distress, afebrile. Objective Vital Signs Last 24 Hour Vital Signs Date Time Temp Pulse Resp B/P Pulse Ox O2 Delivery O2 Flow Rate FiO2 12/23/16 16:10 97.9 71 20 109/41 97 Venturi Mask 12/23/16 12:00 77 12/23/16 11:38 99.9 71 20 101/49 98 Venturi Mask 12/23/16 08:00 71 12/23/16 07:50 97.9 81 20 130/66 95 Venturi Mask 12/23/16 07:35 Venturi Mask 15.0 50 12/23/16 07:31 97 Venturi Mask 15.0 50 12/23/16 04:10 98.8 80 21 111/58 Venturi Mask 12/23/16 04:00 79 12/23/16 00:08 98.5 84 20 122/60 99 Venturi Mask 12/23/16 00:00 73 12/22/16 20:29 98.8 61 20 160/68 94 Venturi Mask 15.0 12/22/16 20:21 96 Venturi Mask 15.0 50 12/22/16 20:21 Venturi Mask 15.0 50 12/22/16 20:00 90 Height (Feet): 6 Height (Inches): 0.00 Weight (Pounds): 185 General Appearance: WD/WN, no acute distress HEENT: normocephalic, atraumatic, anicteric, mucous membranes moist Respiratory/Chest: chest wall non-tender, no respiratory distress, no accessory muscle use, decreased breath sounds, crackles/rales Cardiovascular: normal peripheral pulses, normal rate, regular rhythm, no gallop/murmur Abdomen: normal bowel sounds, soft, non tender, no organomegaly, non distended , no mass, tender Extremities: no cyanosis, no clubbing Skin: no rash Laboratory Tests Test 12/23/16 07:15 12/23/16 09:30 12/23/16 11:35 White Blood Count 6.8 K/UL (4.8-10.8) # Red Blood Count 3.78 M/UL (4.70-6.10) L Hemoglobin 8.1 G/DL (14.2-18.0) L Hematocrit 26.8 % (42.0-52.0) L Mean Corpuscular Volume 71 FL (80-99) L Mean Corpuscular Hemoglobin 21.5 PG (27.0-31.0) L Mean Corpuscular Hemoglobin Concent 30.3 G/DL (32.0-36.0) L Red Cell Distribution Width 16.3 % (11.6-14.8) H Platelet Count 136 K/UL (150-450) L Mean Platelet Volume 11.5 FL (6.5-10.1) H Neutrophils (%) (Auto) % (45.0-75.0) Lymphocytes (%) (Auto) % (20.0-45.0) Monocytes (%) (Auto) % (1.0-10.0) Eosinophils (%) (Auto) % (0.0-3.0) Basophils (%) (Auto) % (0.0-2.0) Differential Total Cells Counted 100 Neutrophils % (Manual) 87 % (45-75) H Lymphocytes % (Manual) 6 % (20-45) L Monocytes % (Manual) 4 % (1-10) Eosinophils % (Manual) 3 % (0-3) Basophils % (Manual) 0 % (0-2) Band Neutrophils 0 % (0-8) Platelet Estimate Decreased L Platelet Morphology Normal Hypochromasia 1+ Anisocytosis 1+ Microcytosis 1+ Sodium Level 138 mEQ/L (135-145) Potassium Level 3.1 mEQ/L (3.4-4.9) L Chloride Level 102 mEQ/L (98-107) Carbon Dioxide Level 25 mEQ/L (20-30) Anion Gap 11 (5-15) Blood Urea Nitrogen 13 mg/dL (7-23) Creatinine 1.0 mg/dL (0.7-1.2) Estimat Glomerular Filtration Rate > 60 mL/min (>60) Glucose Level 95 mg/dL (74-106) Calcium Level 8.6 mg/dL (8.6-10.2) Phosphorus Level 2.5 mg/dL (2.5-4.8) Magnesium Level 1.6 mg/dL (1.7-2.5) L Total Bilirubin 0.5 mg/dL (0.0-1.2) Aspartate Amino Transf (AST/SGOT) 43 U/L (5-40) H Alanine Aminotransferase (ALT/SGPT) 33 U/L (3-41) Alkaline Phosphatase 41 U/L (40-129) Total Protein 5.9 g/dL (6.6-8.7) L Albumin 2.5 g/dL (3.5-5.2) L Globulin 3.4 g/dL Albumin/Globulin Ratio 0.7 (1.0-2.7) L Vancomycin Level Trough 15.2 ug/mL (5.0-12.0) H Prothrombin Time 11.8 SEC (9.30-11.50) H Prothromb Time International Ratio 1.2 (0.9-1.1) H Current Medications Medications (Trade) Dose Ordered Sig/Gloria Route PRN Reason Start Time Stop Time Status Last Admin Dose Admin Acetaminophen (Tylenol) 650 mg Q4H PRN ORAL Mild Pain (Pain Scale 1-3) 12/22/16 02:15 01/21/17 02:14 Acetaminophen (Tylenol) 650 mg Q4H PRN RECTAL fever > 100.5F 12/22/16 04:00 01/21/17 03:59 Bisacodyl (Dulcolax) 10 mg DAILYPRN PRN RECTAL Constipation 12/22/16 10:15 01/21/17 10:14 Dextrose/Sodium Chloride 1,000 ml @ 50 mls/hr Q20H IV 12/22/16 02:00 01/21/17 01:59 12/22/16 23:29 Enoxaparin Sodium (Lovenox) 80 mg EVERY 12 HOURS SUBQ 12/23/16 21:00 01/22/17 20:59 Iron Sucrose 100 mg/Sodium Chloride 60 ml @ 240 mls/hr BEDTIME IVPB 12/22/16 21:00 12/26/16 21:14 12/22/16 20:52 Levofloxacin 100 ml @ 100 mls/hr Q24H IVPB 12/22/16 17:00 12/29/16 16:59 12/23/16 16:15 Lorazepam (Ativan 2mg/ml 1ml) 0.5 mg Q4H PRN IV For Anxiety 12/22/16 02:15 12/29/16 02:14 Magnesium Hydroxide (Mom) 30 ml HSPRN PRN ORAL Constipation 12/22/16 10:15 01/21/17 10:14 Morphine Sulfate (Morphine Sulfate) 2 mg Q6H PRN IVP Moderate Pain (Pain Scale 4-6) 12/22/16 04:15 12/29/16 04:14 Nitroglycerin (Ntg) 0.4 mg Q5M PRN SL Prn Chest Pain 12/22/16 02:00 Ondansetron HCl (Zofran) 4 mg Q6H PRN IVP Nausea & Vomiting 12/22/16 04:15 01/21/17 04:14 Pantoprazole (Protonix) 40 mg DAILY IV 12/22/16 09:00 01/21/17 08:59 12/23/16 08:25 Piperacillin Sod/ Tazobactam Sod/ Sodium Chloride (Zosyn/Sodium Chloride) 110 ml @ 27.5 mls/hr Q8HR@0300,1100,1900 IVPB 12/22/16 03:00 12/29/16 02:59 12/23/16 11:28 Promethazine HCl/ Codeine (Phenergan with Codeine) 5 ml Q4H PRN ORAL For Cough 12/22/16 02:15 01/21/17 02:14 Temazepam (Restoril) 15 mg HSPRN PRN ORAL Insomnia 12/22/16 10:15 12/29/16 10:14 Vancomycin HCl 1 ea 1 ea DAILY PRN MISC PER RX PROTOCOL 12/22/16 09:00 01/21/17 08:59 Vancomycin HCl/ Dextrose (Vancomycin/D5W) 275 ml @ 183.708 mls/hr Q12HR IVPB 12/23/16 21:00 12/28/16 20:59 Frankie Ratliff M.D. Dec 23, 2016 17:31
[2016-12-23 20:00] VITALS: BP 114/76
[2016-12-23] MEDS: Iron Sucrose 100 MG in NS 55 ML IVPB SCH (20:54)
[2016-12-23] MEDS ORDERED: Vancomycin 750mg/D5W 275ml IVPB SCH ×2 (21:00)
[2016-12-23] MEDS ORDERED: Enoxaparin 80mg Inj SUBQ SCH (21:00)
[2016-12-24] VITALS: BP 113/76
[2016-12-24] MEDS: D5 1/2NS 1,000 ML IV SCH ×3 (00:46→21:10)
[2016-12-24] MEDS: Piperacillin/Tazobactam 4.5 GM in NS 110 ML IVPB SCH (02:49)
[2016-12-24 04:00] VITALS: BP 130/59
[2016-12-24 08:00] VITALS: BP 127/64
[2016-12-24] MEDS ORDERED: Nitroglycerin Subl 0.4mg tab (Bottle Of 25) SL PRN (08:00)
[2016-12-24] MEDS ORDERED: Acetaminophen 650 MG SUPP RECTAL PRN (08:00)
[2016-12-24] MEDS ORDERED: Promethazine/Codeine 5ml UD ORAL PRN (08:00)
[2016-12-24] MEDS ORDERED: DuoNeb 0.5-3(2.5)mg/3ml neb HHN PRN (08:15)
--- NOTE | 2016-12-24 08:20 | Pulmonology Progress Note ---
Assessment/Plan Assessment/Plan ASSESSMENT sepsis PNA- HCAP vs aspiration acute toxic metabolic encephalopathy, likely due to sepsis acute hypoxemic respiratory failure, requiring NRM acute DVT RLE elevated troponin /troponin leak iron deficiency anemia hypotension electrolyte imbalance ( Low K, low Mg) moderate dysphagia high aspiration risk PLAN OF CARE tele O2 HHN prn, titrate to keep sat above 92% initial CXR with bibasilar infiltrate, likely pneumonia fup CXR with R infiltrate fup with CXR on Monday abx sputum cx negative ( prior + Acinetobacter) blood cx negative, UA negatiev ID follows elevated troponin due to troponin leak, possibly due to transient hypotension as per cardio ( levels flat, asymptomatic, ECG no ischemic changes) hypotension resolved with IVF, likely due to dehydration hold off on BB ( due to hypotension) and ASA ( due to anemia) venous Duplex + acute DVT CFV RLE on Lovenox and Coumadin to bridge to therapeutic INR, still subtherapeutic heme follows failed BSSE NPO high aspiration risk VSS pending anemia workup with iron deficiency, on Venofer, monitor HH, transfuse prn, goal to keep Hgb above 7 GI prophylaxis case discussed and evaluated by supervising physician Subjective Allergies: Coded Allergies: No Known Allergies (Unverified , 12/05/15) Subjective leukocytosis resolved, weaned to simple mask from NRM stable pulse oximetry no signs of respiratory distress Objective Last 24 Hour Vital Signs Date Time Temp Pulse Resp B/P Pulse Ox O2 Delivery O2 Flow Rate FiO2 12/24/16 04:00 97.7 85 20 130/59 95 Simple Mask 10.0 12/24/16 00:00 98.2 84 16 113/76 94 Simple Mask 8.0 12/23/16 20:00 97.9 64 18 114/76 97 Simple Mask 10.0 12/23/16 19:41 96 Venturi Mask 15.0 50 12/23/16 19:41 Venturi Mask 15.0 50 12/23/16 16:10 97.9 71 20 109/41 97 Venturi Mask 12/23/16 12:00 77 12/23/16 11:38 99.9 71 20 101/49 98 Venturi Mask Intake and Output 12/23/16 12/24/16 19:00 07:00 Intake Total 1177.416 ml 432.5 ml Output Total 800 ml 200 ml Balance 377.416 ml 232.5 ml Intake IV Total 1177.416 ml 432.5 ml Output Urine Total 800 ml 200 ml HEENT: normocephalic, atraumatic, anicteric Respiratory/Chest: lungs clear - with moderate air entry , no accessory muscle use Cardiovascular: normal rate, regular rhythm, no JVD Abdomen: normal bowel sounds, soft, non tender, non distended Extremities: no edema, other - contracted LE Neurologic/Psychiatric: abnormal gait, alert, responsive - confused, other Laboratory Tests 12/23/16 09:30: Vancomycin Level Trough 15.2H 12/23/16 11:35: Prothrombin Time 11.8H, Prothromb Time International Ratio 1.2H Current Medications Medications (Trade) Dose Ordered Sig/Gloria Route PRN Reason Start Time Stop Time Status Last Admin Dose Admin Acetaminophen (Tylenol) 650 mg Q4H PRN ORAL Mild Pain (Pain Scale 1-3) 12/24/16 08:00 01/23/17 07:59 Acetaminophen (Tylenol) 650 mg Q4H PRN RECTAL fever > 100.5F 12/24/16 08:00 01/23/17 07:59 Bisacodyl (Dulcolax) 10 mg DAILYPRN PRN RECTAL Constipation 12/24/16 08:00 01/23/17 07:59 Dextrose/Sodium Chloride 1,000 ml @ 50 mls/hr Q20H IV 12/24/16 07:15 01/23/17 07:14 Enoxaparin Sodium (Lovenox) 80 mg EVERY 12 HOURS SUBQ 12/24/16 09:00 01/23/17 08:59 Iron Sucrose 100 mg/Sodium Chloride ml @ 240 mls/hr BEDTIME IVPB 12/24/16 21:00 12/26/16 21:14 Levofloxacin 100 ml @ 100 mls/hr Q24H IVPB 12/24/16 17:00 12/31/16 16:59 Lorazepam (Ativan 2mg/ml 1ml) 0.5 mg Q4H PRN IV For Anxiety 12/24/16 08:00 12/31/16 07:59 Magnesium Hydroxide (Mom) 30 ml HSPRN PRN ORAL Constipation 12/24/16 21:00 01/23/17 20:59 Morphine Sulfate (Morphine Sulfate) 2 mg Q6H PRN IVP Moderate Pain (Pain Scale 4-6) 12/24/16 08:00 12/31/16 07:59 Nitroglycerin (Ntg) 0.4 mg Q5M PRN SL Prn Chest Pain 12/24/16 08:00 Ondansetron HCl (Zofran) 4 mg Q6H PRN IVP Nausea & Vomiting 12/24/16 08:00 01/23/17 07:59 Pantoprazole (Protonix) 40 mg DAILY IV 12/24/16 09:00 01/23/17 08:59 Piperacillin Sod/ Tazobactam Sod 4.5 gm/Sodium Chloride 110 ml @ 27.5 mls/hr Q8HR@0300,1100,1900 IVPB 12/24/16 11:00 12/31/16 10:59 Promethazine HCl/ Codeine (Phenergan with Codeine) 5 ml Q4H PRN ORAL For Cough 12/24/16 08:00 01/23/17 07:59 Temazepam (Restoril) 15 mg HSPRN PRN ORAL Insomnia 12/24/16 21:00 12/31/16 20:59 Vancomycin HCl (Vanco rx to dose) 1 ea DAILY PRN MISC PER RX PROTOCOL 12/24/16 09:00 01/23/17 08:59 Vancomycin HCl/ Dextrose (Vancomycin/D5W) 275 ml @ 183.708 mls/hr Q12HR IVPB 12/24/16 09:00 12/29/16 08:59 Todd Martino)Rena NP Dec 24, 2016 08:20
[2016-12-24] MEDS: Pantoprazole Inj IV SCH (08:41)
[2016-12-24] MEDS: Vancomycin 750 MG in D5W 275 ML IVPB SCH ×2 (08:42→21:10)
[2016-12-24 08:46] LABS: BASOPHILS % (AUTO) 3.2 % (0.0-2.0); EOSINOPHILS % (AUTO) 4.8 % (0.0-3.0); LYMPHOCYTES % (AUTO) 16.4 % (20.0-45.0); MEAN CORPUSCULAR HGB CONC 29.6 G/DL (32.0-36.0); MEAN CORPUSCULAR VOLUME 71 FL (80-99); MEAN PLATELET VOLUME 9.1 FL (6.5-10.1); MONOCYTES % (AUTO) 13.8 % (1.0-10.0); NEUTROPHILS % (AUTO) 61.9 % (45.0-75.0); PLATELET COUNT 164 K/UL (150-450); RED BLOOD COUNT 3.87 M/UL (4.70-6.10); RED CELL DISTRIBUTION WIDTH 16.3 % (11.6-14.8); WHITE BLOOD COUNT 5.2 K/UL (4.8-10.8)
[2016-12-24 08:54] LABS: INR 1.2 (0.9-1.1)
[2016-12-24 09:01] LABS: ANION GAP 13 (5-15); CARBON DIOXIDE 26 mEQ/L (20-30); CHLORIDE 104 mEQ/L (98-107); CREATININE 1.1 mg/dL (0.7-1.2); GLOMERULAR FILTRATION RATE > 60 mL/min (>60); HEMOLYSIS 1; POTASSIUM 3.8 mEQ/L (3.4-4.9); SODIUM 143 mEQ/L (135-145)
[2016-12-24] MEDS: Enoxaparin 80mg Inj SUBQ SCH ×2 (09:51→21:16)
--- NOTE | 2016-12-24 09:58 | General Progress Note ---
Assessment/Plan Problem List: (1) Hypernatremia ICD Codes: E87.0 - Hyperosmolality and hypernatremia SNOMED: 98551478 (2) Vomiting ICD Codes: R11.10 - Vomiting, unspecified SNOMED: 873515579 (3) Pancreatitis ICD Codes: K85.9 - Acute pancreatitis, unspecified SNOMED: 24441878 (4) Hiatal hernia ICD Codes: K44.9 - Diaphragmatic hernia without obstruction or gangrene SNOMED: 36998000 (5) Acid reflux ICD Codes: K21.9 - Gastro-esophageal reflux disease without esophagitis SNOMED: 197147867 (6) Lung nodule ICD Codes: R91.1 - Solitary pulmonary nodule SNOMED: 962033601 (7) LFTs abnormal ICD Codes: R79.89 - Other specified abnormal findings of blood chemistry SNOMED: 883596489 (8) HTN (hypertension) ICD Codes: I10 - Essential (primary) hypertension SNOMED: 88645705 (9) Acute kidney injury superimposed on chronic kidney disease ICD Codes: S37.009A - Unspecified injury of unspecified kidney, initial encounter; N18.9 - Chronic kidney disease, unspecified SNOMED: 60267038 (10) Aspiration pneumonia ICD Codes: J69.0 - Pneumonitis due to inhalation of food and vomit SNOMED: 157157218, 929598548 Qualifiers: Qualified Codes: J69.0 - Pneumonitis due to inhalation of food and vomit (11) Proteinuria ICD Codes: R80.9 - Proteinuria, unspecified SNOMED: 86710168, 986790455 Qualifiers: Qualified Codes: R80.9 - Proteinuria, unspecified (12) Anemia, chronic disease ICD Codes: D63.8 - Anemia in other chronic diseases classified elsewhere SNOMED: 088916835, 017751892 (13) Acute respiratory failure with hypoxia ICD Codes: J96.01 - Acute respiratory failure with hypoxia SNOMED: 18718189, 327487945 (14) Dehydration ICD Codes: E86.0 - Dehydration SNOMED: 40415844 (15) MAR (acute kidney injury) ICD Codes: N17.9 - Acute kidney failure, unspecified SNOMED: 24556753 (16) COPD (chronic obstructive pulmonary disease) ICD Codes: J44.9 - Chronic obstructive pulmonary disease, unspecified SNOMED: 31912400 (17) CHF (congestive heart failure) ICD Codes: I50.9 - Heart failure, unspecified SNOMED: 98313641 (18) Severe sepsis with septic shock ICD Codes: A41.9 - Sepsis, unspecified organism; R65.21 - Severe sepsis with septic shock SNOMED: 95658372 (19) HCAP (healthcare-associated pneumonia) ICD Codes: J18.9 - Pneumonia, unspecified organism SNOMED: 322200020 (20) Acute respiratory failure ICD Codes: J96.00 - Acute respiratory failure, unspecified whether with hypoxia or hypercapnia SNOMED: 98873871 (21) Schizophrenia ICD Codes: F20.9 - Schizophrenia, unspecified SNOMED: 98623051 (22) Gallstone ICD Codes: K80.20 - Calculus of gallbladder without cholecystitis without obstruction SNOMED: 050448231 (23) Anemia ICD Codes: D64.9 - Anemia, unspecified SNOMED: 384651764 (24) Osteoarthritis ICD Codes: M19.90 - Unspecified osteoarthritis, unspecified site SNOMED: 357967707 (25) Encephalopathy ICD Codes: G93.40 - Encephalopathy, unspecified SNOMED: 04305260, 373938404 (26) UTI (urinary tract infection) ICD Codes: N39.0 - Urinary tract infection, site not specified SNOMED: 78812512 (27) UTI (urinary tract infection) ICD Codes: N39.0 - Urinary tract infection, site not specified SNOMED: 39059260 (28) Elevated troponin ICD Codes: R74.8 - Abnormal levels of other serum enzymes SNOMED: 840082146, 114755109 (29) Pneumonia ICD Codes: J18.9 - Pneumonia, unspecified organism SNOMED: 662438802 Qualifiers: Qualified Codes: J18.1 - Lobar pneumonia, unspecified organism (30) Severe sepsis ICD Codes: A41.9 - Sepsis, unspecified organism; R65.20 - Severe sepsis without septic shock SNOMED: 17816168, 700742168 (31) Acute DVT (deep venous thrombosis) ICD Codes: I82.409 - Acute embolism and thrombosis of unspecified deep veins of unspecified lower extremity SNOMED: 641495502514804 Status: stable, progressing, tolerating diet Assessment/Plan o2 pulm tx abx cbc bmp am dc plan Subjective Constitutional: Reports: weakness Allergies: Coded Allergies: No Known Allergies (Unverified , 12/05/15) All Systems: reviewed and negative except above Subjective calm weak Objective Last 24 Hour Vital Signs Date Time Temp Pulse Resp B/P Pulse Ox O2 Delivery O2 Flow Rate FiO2 12/24/16 08:00 97.7 81 18 127/64 95 Room Air 12/24/16 07:40 Venturi Mask 12/24/16 04:00 97.7 85 20 130/59 95 Simple Mask 10.0 12/24/16 00:00 98.2 84 16 113/76 94 Simple Mask 8.0 12/23/16 20:00 97.9 64 18 114/76 97 Simple Mask 10.0 12/23/16 19:41 96 Venturi Mask 15.0 50 12/23/16 19:41 Venturi Mask 15.0 50 12/23/16 16:10 97.9 71 20 109/41 97 Venturi Mask 12/23/16 12:00 77 12/23/16 11:38 99.9 71 20 101/49 98 Venturi Mask Intake and Output 12/23/16 12/24/16 19:00 07:00 Intake Total 1177.416 ml 432.5 ml Output Total 800 ml 200 ml Balance 377.416 ml 232.5 ml Intake IV Total 1177.416 ml 432.5 ml Output Urine Total 800 ml 200 ml Laboratory Tests 12/23/16 11:35: Prothrombin Time 11.8H, Prothromb Time International Ratio 1.2H 12/24/16 08:30: Prothrombin Time 12.0H, Prothromb Time International Ratio 1.2H, White Blood Count 5.2, Red Blood Count 3.87L, Hemoglobin 8.1L, Hematocrit 27.4L, Mean Corpuscular Volume 71L, Mean Corpuscular Hemoglobin 21.0L, Mean Corpuscular Hemoglobin Concent 29.6L, Red Cell Distribution Width 16.3H, Platelet Count 164 , Mean Platelet Volume 9.1, Neutrophils (%) (Auto) 61.9, Lymphocytes (%) (Auto) 16.4L, Monocytes (%) (Auto) 13.8H, Eosinophils (%) (Auto) 4.8H, Basophils (%) ( Auto) 3.2H, Sodium Level 143, Potassium Level 3.8, Chloride Level 104, Carbon Dioxide Level 26, Anion Gap 13, Blood Urea Nitrogen 11, Creatinine 1.1, Estimat Glomerular Filtration Rate > 60, Glucose Level 105, Calcium Level 9.0 Height (Feet): 6 Height (Inches): 0.00 Weight (Pounds): 185 General Appearance: lethargic EENT: normal ENT inspection Neck: normal alignment Cardiovascular: normal peripheral pulses, normal rate, regular rhythm Respiratory/Chest: chest wall non-tender, lungs clear, normal breath sounds Abdomen: normal bowel sounds, non tender, soft Extremities: normal inspection Edema: no edema noted Arm (L), no edema noted Arm (R), no edema noted Leg (L), no edema noted Leg (R), no edema noted Pedal (L), no edema noted Pedal (R), no edema noted Generalized Neurologic: responsive, motor weakness Skin: normal pigmentation, warm/dry ALONDRA SINGH Dec 24, 2016 09:58
[2016-12-24] MEDS ORDERED: Piperacillin/Tazobactam 4.5 GM in NS 110 ML IVPB SCH (11:00)
[2016-12-24 12:00] VITALS: BP 149/75
--- NOTE | 2016-12-24 13:25 | Infectious Diseases Prog Note ---
Assessment/Plan Problems: (1) HCAP (healthcare-associated pneumonia) Assessment & Plan: with Acinetobacter baumannii pansensitive, will continue levaquin , and vancomycin , stop zosyn . (2) Severe sepsis with septic shock Assessment & Plan: with leukocytosis, improving after adding levaquin . await blood culture and continue vancomycin empirically. (3) CHF (congestive heart failure) Assessment & Plan: continue diuresis, cardiology is following (4) COPD (chronic obstructive pulmonary disease) Assessment & Plan: continue inhalers , with antibiotics, pulmonary is following (5) Acute respiratory failure with hypoxia Assessment & Plan: due to pneumonia, on BIPAP , pulmonary is following (6) MAR (acute kidney injury) Assessment & Plan: due to sepsis, continue gentle hydration, adjust meds as per creatinine clearance .consult nephrology (7) Elevated troponin Assessment & Plan: management as per cardiology , continue tele monitor Subjective ROS Limited/Unobtainable: Yes Allergies: Coded Allergies: No Known Allergies (Unverified , 12/05/15) Subjective he is still on venturi mask, awake and alert, coughing with rales, , not in distress, afebrile. Objective Vital Signs Last 24 Hour Vital Signs Date Time Temp Pulse Resp B/P Pulse Ox O2 Delivery O2 Flow Rate FiO2 12/24/16 08:00 97.7 81 18 127/64 95 Room Air 12/24/16 07:40 Venturi Mask 15.0 50 12/24/16 07:40 99 Venturi Mask 15.0 50 12/24/16 04:00 97.7 85 20 130/59 95 Simple Mask 10.0 12/24/16 00:00 98.2 84 16 113/76 94 Simple Mask 8.0 12/23/16 20:00 97.9 64 18 114/76 97 Simple Mask 10.0 12/23/16 19:41 96 Venturi Mask 15.0 50 12/23/16 19:41 Venturi Mask 15.0 50 12/23/16 16:10 97.9 71 20 109/41 97 Venturi Mask Height (Feet): 6 Height (Inches): 0.00 Weight (Pounds): 185 General Appearance: WD/WN, no acute distress HEENT: normocephalic, atraumatic, anicteric, mucous membranes moist Respiratory/Chest: chest wall non-tender, lungs clear, normal breath sounds, no respiratory distress, no accessory muscle use Cardiovascular: normal peripheral pulses, normal rate, regular rhythm, no gallop/murmur, no JVD Abdomen: normal bowel sounds, soft, non tender, no organomegaly, non distended Extremities: no cyanosis, no clubbing Skin: no rash, no lesions Laboratory Tests Test 12/24/16 08:30 White Blood Count 5.2 K/UL (4.8-10.8) Red Blood Count 3.87 M/UL (4.70-6.10) L Hemoglobin 8.1 G/DL (14.2-18.0) L Hematocrit 27.4 % (42.0-52.0) L Mean Corpuscular Volume 71 FL (80-99) L Mean Corpuscular Hemoglobin 21.0 PG (27.0-31.0) L Mean Corpuscular Hemoglobin Concent 29.6 G/DL (32.0-36.0) L Red Cell Distribution Width 16.3 % (11.6-14.8) H Platelet Count 164 K/UL (150-450) Mean Platelet Volume 9.1 FL (6.5-10.1) Neutrophils (%) (Auto) 61.9 % (45.0-75.0) Lymphocytes (%) (Auto) 16.4 % (20.0-45.0) L Monocytes (%) (Auto) 13.8 % (1.0-10.0) H Eosinophils (%) (Auto) 4.8 % (0.0-3.0) H Basophils (%) (Auto) 3.2 % (0.0-2.0) H Prothrombin Time 12.0 SEC (9.30-11.50) H Prothromb Time International Ratio 1.2 (0.9-1.1) H Sodium Level 143 mEQ/L (135-145) Potassium Level 3.8 mEQ/L (3.4-4.9) Chloride Level 104 mEQ/L (98-107) Carbon Dioxide Level 26 mEQ/L (20-30) Anion Gap 13 (5-15) Blood Urea Nitrogen 11 mg/dL (7-23) Creatinine 1.1 mg/dL (0.7-1.2) Estimat Glomerular Filtration Rate > 60 mL/min (>60) Glucose Level 105 mg/dL (74-106) Calcium Level 9.0 mg/dL (8.6-10.2) Current Medications Medications (Trade) Dose Ordered Sig/Gloria Route PRN Reason Start Time Stop Time Status Last Admin Dose Admin Acetaminophen (Tylenol) 650 mg Q4H PRN ORAL Mild Pain (Pain Scale 1-3) 12/24/16 08:00 01/23/17 07:59 Acetaminophen (Tylenol) 650 mg Q4H PRN RECTAL fever > 100.5F 12/24/16 08:00 01/23/17 07:59 Albuterol/ Ipratropium (DuoNeb 0.5-3(2.5)mg/3ml) 3 ml Q4H PRN HHN Shortness of Breath 12/24/16 08:15 12/29/16 08:14 Bisacodyl (Dulcolax) 10 mg DAILYPRN PRN RECTAL Constipation 12/24/16 08:00 01/23/17 07:59 Dextrose/Sodium Chloride 1,000 ml @ 50 mls/hr Q20H IV 12/24/16 07:15 01/23/17 07:14 12/24/16 08:06 Enoxaparin Sodium (Lovenox) 80 mg EVERY 12 HOURS SUBQ 12/24/16 09:00 01/23/17 08:59 12/24/16 09:51 Iron Sucrose 100 mg/Sodium Chloride ml @ 240 mls/hr BEDTIME IVPB 12/24/16 21:00 12/26/16 21:14 Levofloxacin 100 ml @ 100 mls/hr Q24H IVPB 12/24/16 17:00 12/31/16 16:59 Lorazepam (Ativan 2mg/ml 1ml) 0.5 mg Q4H PRN IV For Anxiety 12/24/16 08:00 12/31/16 07:59 Magnesium Hydroxide (Mom) 30 ml HSPRN PRN ORAL Constipation 12/24/16 21:00 01/23/17 20:59 Morphine Sulfate (Morphine Sulfate) 2 mg Q6H PRN IVP Moderate Pain (Pain Scale 4-6) 12/24/16 08:00 12/31/16 07:59 Nitroglycerin (Ntg) 0.4 mg Q5M PRN SL Prn Chest Pain 12/24/16 08:00 Ondansetron HCl (Zofran) 4 mg Q6H PRN IVP Nausea & Vomiting 12/24/16 08:00 01/23/17 07:59 Pantoprazole (Protonix) 40 mg DAILY IV 12/24/16 09:00 01/23/17 08:59 12/24/16 08:41 Piperacillin Sod/ Tazobactam Sod 4.5 gm/Sodium Chloride 110 ml @ 27.5 mls/hr Q8HR@0300,1100,1900 IVPB 12/24/16 11:00 12/31/16 10:59 12/24/16 11:47 Promethazine HCl/ Codeine (Phenergan with Codeine) 5 ml Q4H PRN ORAL For Cough 12/24/16 08:00 01/23/17 07:59 Temazepam (Restoril) 15 mg HSPRN PRN ORAL Insomnia 12/24/16 21:00 12/31/16 20:59 Vancomycin HCl (Vanco rx to dose) 1 ea DAILY PRN MISC PER RX PROTOCOL 12/24/16 09:00 01/23/17 08:59 Vancomycin HCl/ Dextrose (Vancomycin/D5W) 275 ml @ 183.708 mls/hr Q12HR IVPB 12/24/16 09:00 12/29/16 08:59 12/24/16 08:42 Frankie Ratliff M.D. Dec 24, 2016 13:25
--- NOTE | 2016-12-24 15:04 | Cardiac Electrophysiology PN ---
Assessment/Plan Assessment/Plan 1. Hypotension, resolved with IV fluids and intravenous antibiotics . Echocardiogram EF 60%. 2. Troponin leak 0.43 and 0.46. Levels flat and nonspecific. Patient comfortable and nonverbal. ECG normal and EF 60%. Could be due to transient hypotension. Hold off on aspirin for severe acute anemia and hold off beta uli for hypotension. 3. Increase WBC from 6.9 to >20. Normalized to 6.8 On IV abx per ID 4. Anemia with 3 gm drop in HB from 11 to 8. No obvious gi bleed. ? Dilutional. Heparin drip changed to Lovenox [address] Tesfaye. 5. Acute RCFV DVT on Lovenox and Coumadin per Dr. Tesfaye. Watch for drop in Hb. 6. Dysphagia. video swallow pending. MARY KAY RN Subjective Subjective Confused.Nonverbal.No change.Took out his IV. RNs at bedside as was not wearing his O2 with drop in Sat. Objective Last 24 Hour Vital Signs Date Time Temp Pulse Resp B/P Pulse Ox O2 Delivery O2 Flow Rate FiO2 12/24/16 08:00 97.7 81 18 127/64 95 Room Air 12/24/16 07:40 Venturi Mask 15.0 50 12/24/16 07:40 99 Venturi Mask 15.0 50 12/24/16 04:00 97.7 85 20 130/59 95 Simple Mask 10.0 12/24/16 00:00 98.2 84 16 113/76 94 Simple Mask 8.0 12/23/16 20:00 97.9 64 18 114/76 97 Simple Mask 10.0 12/23/16 19:41 96 Venturi Mask 15.0 50 12/23/16 19:41 Venturi Mask 15.0 50 12/23/16 16:10 97.9 71 20 109/41 97 Venturi Mask Intake and Output 12/23/16 12/24/16 19:00 07:00 Intake Total 1177.416 ml 432.5 ml Output Total 800 ml 200 ml Balance 377.416 ml 232.5 ml Intake IV Total 1177.416 ml 432.5 ml Output Urine Total 800 ml 200 ml Laboratory Tests Test 12/24/16 08:30 White Blood Count 5.2 K/UL (4.8-10.8) Red Blood Count 3.87 M/UL (4.70-6.10) L Hemoglobin 8.1 G/DL (14.2-18.0) L Hematocrit 27.4 % (42.0-52.0) L Mean Corpuscular Volume 71 FL (80-99) L Mean Corpuscular Hemoglobin 21.0 PG (27.0-31.0) L Mean Corpuscular Hemoglobin Concent 29.6 G/DL (32.0-36.0) L Red Cell Distribution Width 16.3 % (11.6-14.8) H Platelet Count 164 K/UL (150-450) Mean Platelet Volume 9.1 FL (6.5-10.1) Neutrophils (%) (Auto) 61.9 % (45.0-75.0) Lymphocytes (%) (Auto) 16.4 % (20.0-45.0) L Monocytes (%) (Auto) 13.8 % (1.0-10.0) H Eosinophils (%) (Auto) 4.8 % (0.0-3.0) H Basophils (%) (Auto) 3.2 % (0.0-2.0) H Prothrombin Time 12.0 SEC (9.30-11.50) H Prothromb Time International Ratio 1.2 (0.9-1.1) H Sodium Level 143 mEQ/L (135-145) Potassium Level 3.8 mEQ/L (3.4-4.9) Chloride Level 104 mEQ/L (98-107) Carbon Dioxide Level 26 mEQ/L (20-30) Anion Gap 13 (5-15) Blood Urea Nitrogen 11 mg/dL (7-23) Creatinine 1.1 mg/dL (0.7-1.2) Estimat Glomerular Filtration Rate > 60 mL/min (>60) Glucose Level 105 mg/dL (74-106) Calcium Level 9.0 mg/dL (8.6-10.2) Objective HEAD AND NECK: No JVD. LUNGS: Coarse rhonchi. CARDIOVASCULAR: Regular S1 and S2 with no gallop or murmur. ABDOMEN: Soft. EXTREMITIES: No pitting edema, but has lower extremities of contraction in position. VOLODYMYR HOSKINS Dec 24, 2016 15:04
[2016-12-24 16:00] VITALS: BP 135/81
--- NOTE | 2016-12-24 18:30 | General Progress Note ---
Assessment/Plan Assessment/Plan ASSESSMENT: 1. Right lower extremity deep venous thrombosis. Has a Right common femoral clot. Has been on coumadin, INR has been btw 2-3 2. Anemia 2/2 hemodilution 3. Hematuria- held heparin gtt. 4. Anemia secondary to iron deficiency - continue currently on iv iron 5. Decrease in hemoglobin and hematocrit, rule out gastrointestinal bleed. 6. Leukocytosis has resolved d/t abx treatment. 7. Thrombocytopenia secondary to hemodilution as well. 8. Elevated blood sugar. 9. Elevated troponin, has been seen by Cardiology service. 10. Hypoxia. RECOMMENDATIONS: 1. Monitor counts. 2. Continue coumadin 3. Appreciate Cardiology and Pulmonary recs 4. Continue iv iron 5. GI prophylaxis with PPI. 6. Antibiotics as needed. 7. Appreciate pulm/cc recs 8. Imaging has been reviewed. 9. Pain control. 11. Appreciate consultation!! Subjective ROS Limited/Unobtainable: Yes Constitutional: Reports: no symptoms HEENT: Reports: no symptoms Cardiovascular: Reports: no symptoms Respiratory: Reports: cough Gastrointestinal/Abdominal: Reports: no symptoms Genitourinary: Reports: no symptoms Neurologic/Psychiatric: Reports: no symptoms Endocrine: Reports: no symptoms Hematologic/Lymphatic: Reports: anemia Allergies: Coded Allergies: No Known Allergies (Unverified , 12/05/15) Subjective pt weak, on venturi mask, awake & alert Objective Last 24 Hour Vital Signs Date Time Temp Pulse Resp B/P Pulse Ox O2 Delivery O2 Flow Rate FiO2 12/24/16 16:00 97.3 77 17 135/81 95 Room Air 12/24/16 12:00 87 20 149/75 92 Venturi Mask 10.0 12/24/16 08:00 97.7 81 18 127/64 95 Room Air 12/24/16 07:40 Venturi Mask 15.0 50 12/24/16 07:40 99 Venturi Mask 15.0 50 12/24/16 04:00 97.7 85 20 130/59 95 Simple Mask 10.0 12/24/16 00:00 98.2 84 16 113/76 94 Simple Mask 8.0 12/23/16 20:00 97.9 64 18 114/76 97 Simple Mask 10.0 12/23/16 19:41 96 Venturi Mask 15.0 50 12/23/16 19:41 Venturi Mask 15.0 50 Intake and Output 4/14/17 4/15/17 19:00 07:00 Intake Total 1177.416 ml 432.5 ml Output Total 800 ml 200 ml Balance 377.416 ml 232.5 ml Intake IV Total 1177.416 ml 432.5 ml Output Urine Total 800 ml 200 ml Laboratory Tests 12/24/16 08:30: White Blood Count 5.2, Red Blood Count 3.87L, Hemoglobin 8.1L, Hematocrit 27.4L , Mean Corpuscular Volume 71L, Mean Corpuscular Hemoglobin 21.0L, Mean Corpuscular Hemoglobin Concent 29.6L, Red Cell Distribution Width 16.3H, Platelet Count 164, Mean Platelet Volume 9.1, Neutrophils (%) (Auto) 61.9, Lymphocytes (%) (Auto) 16.4L, Monocytes (%) (Auto) 13.8H, Eosinophils (%) (Auto ) 4.8H, Basophils (%) (Auto) 3.2H, Prothrombin Time 12.0H, Prothromb Time International Ratio 1.2H, Sodium Level 143, Potassium Level 3.8, Chloride Level 104, Carbon Dioxide Level 26, Anion Gap 13, Blood Urea Nitrogen 11, Creatinine 1.1, Estimat Glomerular Filtration Rate > 60, Glucose Level 105, Calcium Level 9.0 Height (Feet): 6 Height (Inches): 0.00 Weight (Pounds): 185 General Appearance: no apparent distress EENT: PERRL/EOMI Neck: non-tender Cardiovascular: normal peripheral pulses Respiratory/Chest: chest wall non-tender Abdomen: normal bowel sounds Extremities: normal range of motion Edema: no edema noted Leg (L), no edema noted Leg (R), no edema noted Pedal (L) , no edema noted Pedal (R) 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
[2016-12-24 20:00] VITALS: BP 128/89
[2016-12-24] MEDS: LORazepam Inj 2mg/ml 1ml IV PRN (20:38)
[2016-12-24] MEDS: Iron Sucrose 100 MG in NS 55 ML IVPB SCH (20:39)
[2016-12-24] MEDS ORDERED: Milk of Magnesia 30ml Ud ORAL PRN (21:00)
[2016-12-25] VITALS: BP 138/84
[2016-12-25] MEDS: LORazepam Inj 2mg/ml 1ml IV PRN ×2 (02:05→20:10)
[2016-12-25 04:00] VITALS: BP 113/67
[2016-12-25 07:22] LABS: BASOPHILS % (AUTO) 1.1 % (0.0-2.0); LYMPHOCYTES % (AUTO) 22.1 % (20.0-45.0); MEAN CORPUSCULAR HEMOGLOBIN 21.4 PG (27.0-31.0); MEAN CORPUSCULAR HGB CONC 30.1 G/DL (32.0-36.0); MEAN CORPUSCULAR VOLUME 71 FL (80-99); MEAN PLATELET VOLUME 11.4 FL (6.5-10.1); MONOCYTES % (AUTO) 11.3 % (1.0-10.0); NEUTROPHILS % (AUTO) 54.6 % (45.0-75.0); PLATELET COUNT 179 K/UL (150-450); RED BLOOD COUNT 3.86 M/UL (4.70-6.10); RED CELL DISTRIBUTION WIDTH 16.2 % (11.6-14.8); WHITE BLOOD COUNT 6.1 K/UL (4.8-10.8)
[2016-12-25 07:25] LABS: INR 1.1 (0.9-1.1); PROTHROMBIN TIME 11.5 SEC (9.30-11.50)
[2016-12-25 07:34] LABS: ANION GAP 13 (5-15); CARBON DIOXIDE 28 mEQ/L (20-30); CHLORIDE 101 mEQ/L (98-107); CREATININE 0.9 mg/dL (0.7-1.2); GLOMERULAR FILTRATION RATE > 60 mL/min (>60); HEMOLYSIS 2; POTASSIUM 2.9 mEQ/L (3.4-4.9); SODIUM 142 mEQ/L (135-145)
[2016-12-25 08:08] VITALS: BP 132/79
[2016-12-25] MEDS: Enoxaparin 80mg Inj SUBQ SCH ×2 (08:30→20:16)
[2016-12-25] MEDS: Vancomycin 750 MG in D5W 275 ML IVPB SCH ×2 (08:30→20:45)
[2016-12-25] MEDS: Pantoprazole Inj IV SCH (08:31)
--- NOTE | 2016-12-25 08:37 | General Progress Note ---
Assessment/Plan Problem List: (1) Hypernatremia ICD Codes: E87.0 - Hyperosmolality and hypernatremia SNOMED: 58357147 (2) Vomiting ICD Codes: R11.10 - Vomiting, unspecified SNOMED: 574723715 (3) Pancreatitis ICD Codes: K85.9 - Acute pancreatitis, unspecified SNOMED: 11361193 (4) Hiatal hernia ICD Codes: K44.9 - Diaphragmatic hernia without obstruction or gangrene SNOMED: 31868769 (5) Acid reflux ICD Codes: K21.9 - Gastro-esophageal reflux disease without esophagitis SNOMED: 743582220 (6) Lung nodule ICD Codes: R91.1 - Solitary pulmonary nodule SNOMED: 522522509 (7) LFTs abnormal ICD Codes: R79.89 - Other specified abnormal findings of blood chemistry SNOMED: 815909368 (8) HTN (hypertension) ICD Codes: I10 - Essential (primary) hypertension SNOMED: 78161292 (9) Acute kidney injury superimposed on chronic kidney disease ICD Codes: S37.009A - Unspecified injury of unspecified kidney, initial encounter; N18.9 - Chronic kidney disease, unspecified SNOMED: 43601111 (10) Aspiration pneumonia ICD Codes: J69.0 - Pneumonitis due to inhalation of food and vomit SNOMED: 163601014, 245731037 Qualifiers: Qualified Codes: J69.0 - Pneumonitis due to inhalation of food and vomit (11) Proteinuria ICD Codes: R80.9 - Proteinuria, unspecified SNOMED: 58914496, 292811687 Qualifiers: Qualified Codes: R80.9 - Proteinuria, unspecified (12) Anemia, chronic disease ICD Codes: D63.8 - Anemia in other chronic diseases classified elsewhere SNOMED: 700897447, 787830890 (13) Acute respiratory failure with hypoxia ICD Codes: J96.01 - Acute respiratory failure with hypoxia SNOMED: 50987674, 432626067 (14) Dehydration ICD Codes: E86.0 - Dehydration SNOMED: 34031140 (15) MAR (acute kidney injury) ICD Codes: N17.9 - Acute kidney failure, unspecified SNOMED: 38313712 (16) COPD (chronic obstructive pulmonary disease) ICD Codes: J44.9 - Chronic obstructive pulmonary disease, unspecified SNOMED: 18093340 (17) CHF (congestive heart failure) ICD Codes: I50.9 - Heart failure, unspecified SNOMED: 48944825 (18) Severe sepsis with septic shock ICD Codes: A41.9 - Sepsis, unspecified organism; R65.21 - Severe sepsis with septic shock SNOMED: 65107655 (19) HCAP (healthcare-associated pneumonia) ICD Codes: J18.9 - Pneumonia, unspecified organism SNOMED: 574782025 (20) Acute respiratory failure ICD Codes: J96.00 - Acute respiratory failure, unspecified whether with hypoxia or hypercapnia SNOMED: 10156023 (21) Schizophrenia ICD Codes: F20.9 - Schizophrenia, unspecified SNOMED: 58151809 (22) Gallstone ICD Codes: K80.20 - Calculus of gallbladder without cholecystitis without obstruction SNOMED: 120936660 (23) Anemia ICD Codes: D64.9 - Anemia, unspecified SNOMED: 219992548 (24) Osteoarthritis ICD Codes: M19.90 - Unspecified osteoarthritis, unspecified site SNOMED: 817409268 (25) Encephalopathy ICD Codes: G93.40 - Encephalopathy, unspecified SNOMED: 25673200, 488369605 (26) UTI (urinary tract infection) ICD Codes: N39.0 - Urinary tract infection, site not specified SNOMED: 05381033 (27) UTI (urinary tract infection) ICD Codes: N39.0 - Urinary tract infection, site not specified SNOMED: 44303616 (28) Elevated troponin ICD Codes: R74.8 - Abnormal levels of other serum enzymes SNOMED: 284706436, 717156626 (29) Pneumonia ICD Codes: J18.9 - Pneumonia, unspecified organism SNOMED: 109188630 Qualifiers: Qualified Codes: J18.1 - Lobar pneumonia, unspecified organism (30) Severe sepsis ICD Codes: A41.9 - Sepsis, unspecified organism; R65.20 - Severe sepsis without septic shock SNOMED: 45743413, 757383506 (31) Acute DVT (deep venous thrombosis) ICD Codes: I82.409 - Acute embolism and thrombosis of unspecified deep veins of unspecified lower extremity SNOMED: 384836750136479 Status: stable, progressing, tolerating diet Assessment/Plan o2 pulm tx abx cbc bmp am dc plan Subjective Constitutional: Reports: weakness Respiratory: Reports: shortness of breath Allergies: Coded Allergies: No Known Allergies (Unverified , 12/05/15) All Systems: reviewed and negative except above Subjective calm weak Objective Last 24 Hour Vital Signs Date Time Temp Pulse Resp B/P Pulse Ox O2 Delivery O2 Flow Rate FiO2 12/25/16 08:08 97.5 62 20 132/79 97 Venturi Mask 10.0 12/25/16 04:00 97.0 60 16 113/67 99 Room Air 12/25/16 00:00 97.9 75 18 138/84 100 Room Air 12/24/16 20:00 97.5 81 18 128/89 98 12/24/16 19:30 Venturi Mask 15.0 50 12/24/16 19:29 97 Venturi Mask 15.0 50 12/24/16 16:00 97.3 77 17 135/81 95 Room Air 12/24/16 12:00 87 20 149/75 92 Venturi Mask 10.0 Intake and Output 12/24/16 12/25/16 18:59 06:59 Intake Total 875.000 ml 675.000 ml Output Total 700 ml 1000 ml Balance 175.000 ml -325.000 ml Intake IV Total 875.000 ml 675.000 ml Output Urine Total 700 ml 1000 ml # Bowel Movements 1 Laboratory Tests 12/25/16 05:05: White Blood Count 6.1, Red Blood Count 3.86L, Hemoglobin 8.2L, Hematocrit 27.4L , Mean Corpuscular Volume 71L, Mean Corpuscular Hemoglobin 21.4L, Mean Corpuscular Hemoglobin Concent 30.1L, Red Cell Distribution Width 16.2H, Platelet Count 179, Mean Platelet Volume 11.4H, Neutrophils (%) (Auto) 54.6, Lymphocytes (%) (Auto) 22.1, Monocytes (%) (Auto) 11.3H, Eosinophils (%) (Auto) 11.0H, Basophils (%) (Auto) 1.1, Prothrombin Time 11.5, Prothromb Time International Ratio 1.1, Sodium Level 142, Potassium Level 2.9L, Chloride Level 101, Carbon Dioxide Level 28, Anion Gap 13, Blood Urea Nitrogen 7, Creatinine 0.9, Estimat Glomerular Filtration Rate > 60, Glucose Level 93, Calcium Level 9.0 Height (Feet): 6 Height (Inches): 0.00 Weight (Pounds): 185 General Appearance: lethargic EENT: normal ENT inspection Neck: normal alignment Cardiovascular: normal peripheral pulses, normal rate, regular rhythm Respiratory/Chest: chest wall non-tender, lungs clear, normal breath sounds Abdomen: normal bowel sounds, non tender, soft Extremities: normal inspection Edema: no edema noted Arm (L), no edema noted Arm (R), no edema noted Leg (L), no edema noted Leg (R), no edema noted Pedal (L), no edema noted Pedal (R), no edema noted Generalized Neurologic: motor weakness Skin: normal pigmentation, warm/dry ALONDRA SINGH Dec 25, 2016 08:37
[2016-12-25] MEDS ORDERED: NS 275ml ONE ×2 (10:44→13:46)
[2016-12-25] MEDS ORDERED: Tubing IV Secondary IV ONE ×2 (10:44→13:46)
[2016-12-25] MEDS ORDERED: D5 1/2NS 1000ml IV ONE ×2 (10:44→13:46)
[2016-12-25 12:00] VITALS: BP 116/63
--- NOTE | 2016-12-25 12:58 | Pulmonology Progress Note ---
Assessment/Plan Assessment/Plan ASSESSMENT sepsis PNA- HCAP vs aspiration acute toxic metabolic encephalopathy, likely due to sepsis acute hypoxemic respiratory failure, requiring NRM acute DVT RLE elevated troponin /troponin leak iron deficiency anemia hypotension electrolyte imbalance ( Low K, low Mg) moderate dysphagia high aspiration risk PLAN OF CARE tele O2 HHN prn, titrate to keep sat above 92% initial CXR with bibasilar infiltrate, likely pneumonia fup CXR with R infiltrate fup with CXR on Monday abx sputum cx negative ( prior + Acinetobacter) blood cx negative, UA negatiev ID follows elevated troponin due to troponin leak, possibly due to transient hypotension as per cardio ( levels flat, asymptomatic, ECG no ischemic changes) hypotension resolved with IVF, likely due to dehydration hold off on BB ( due to hypotension) and ASA ( due to anemia) venous Duplex + acute DVT CFV RLE on Lovenox and Coumadin to bridge to therapeutic INR, still subtherapeutic heme follows failed BSSE NPO high aspiration risk VSS pending for Monday replace K, check K and Mg in am anemia workup with iron deficiency, on Venofer, monitor HH, transfuse prn, goal to keep Hgb above 7 GI prophylaxis case discussed and evaluated by supervising physician Subjective Allergies: Coded Allergies: No Known Allergies (Unverified , 12/05/15) Subjective leukocytosis resolved, weaned to simple mask from NRM stable pulse oximetry no signs of respiratory distress Objective Last 24 Hour Vital Signs Date Time Temp Pulse Resp B/P Pulse Ox O2 Delivery O2 Flow Rate FiO2 12/25/16 11:29 77 16 99 Venturi Mask 15.0 50 12/25/16 11:29 66 16 97 Venturi Mask 15.0 50 12/25/16 10:09 Venturi Mask 50 12/25/16 10:09 99 Venturi Mask 50 12/25/16 08:08 97.5 62 20 132/79 97 Venturi Mask 10.0 12/25/16 04:00 97.0 60 16 113/67 99 Room Air 12/25/16 00:00 97.9 75 18 138/84 100 Room Air 12/24/16 20:00 97.5 81 18 128/89 98 12/24/16 19:30 Venturi Mask 15.0 50 12/24/16 19:29 97 Venturi Mask 15.0 50 12/24/16 16:00 97.3 77 17 135/81 95 Room Air Intake and Output 12/24/16 12/25/16 19:00 07:00 Intake Total 875.000 ml 725.000 ml Output Total 700 ml 1000 ml Balance 175.000 ml -275.000 ml Intake IV Total 875.000 ml 725.000 ml Output Urine Total 700 ml 1000 ml # Bowel Movements 1 Objective HEENT: normocephalic, atraumatic, anicteric Respiratory/Chest: lungs clear with moderate air entry , no accessory muscle use Cardiovascular: normal rate, regular rhythm, no JVD Abdomen: normal bowel sounds, soft, non tender, non distended Extremities: no edema, contracted LE Neurologic/Psychiatric: abnormal gait, alert, responsive - confused, Laboratory Tests 12/25/16 05:05: White Blood Count 6.1, Red Blood Count 3.86L, Hemoglobin 8.2L, Hematocrit 27.4L , Mean Corpuscular Volume 71L, Mean Corpuscular Hemoglobin 21.4L, Mean Corpuscular Hemoglobin Concent 30.1L, Red Cell Distribution Width 16.2H, Platelet Count 179, Mean Platelet Volume 11.4H, Neutrophils (%) (Auto) 54.6, Lymphocytes (%) (Auto) 22.1, Monocytes (%) (Auto) 11.3H, Eosinophils (%) (Auto) 11.0H, Basophils (%) (Auto) 1.1, Prothrombin Time 11.5, Prothromb Time International Ratio 1.1, Sodium Level 142, Potassium Level 2.9L, Chloride Level 101, Carbon Dioxide Level 28, Anion Gap 13, Blood Urea Nitrogen 7, Creatinine 0.9, Estimat Glomerular Filtration Rate > 60, Glucose Level 93, Calcium Level 9.0 Current Medications Medications (Trade) Dose Ordered Sig/Gloria Route PRN Reason Start Time Stop Time Status Last Admin Dose Admin Acetaminophen (Tylenol) 650 mg Q4H PRN ORAL Mild Pain (Pain Scale 1-3) 12/24/16 08:00 01/23/17 07:59 Acetaminophen (Tylenol) 650 mg Q4H PRN RECTAL fever > 100.5F 12/24/16 08:00 01/23/17 07:59 Albuterol/ Ipratropium (DuoNeb 0.5-3(2.5)mg/3ml) 3 ml Q4H PRN HHN Shortness of Breath 12/24/16 08:15 12/29/16 08:14 Bisacodyl (Dulcolax) 10 mg DAILYPRN PRN RECTAL Constipation 12/24/16 08:00 01/23/17 07:59 Dextrose/Sodium Chloride 1,000 ml @ 50 mls/hr Q20H IV 12/24/16 07:15 01/23/17 07:14 12/24/16 21:10 Enoxaparin Sodium (Lovenox) 80 mg EVERY 12 HOURS SUBQ 12/24/16 09:00 01/23/17 08:59 12/25/16 08:30 Iron Sucrose 100 mg/Sodium Chloride ml @ 240 mls/hr BEDTIME IVPB 12/24/16 21:00 12/26/16 21:14 12/24/16 20:39 Levofloxacin 100 ml @ 100 mls/hr Q24H IVPB 12/24/16 17:00 12/31/16 16:59 12/24/16 16:26 Lorazepam (Ativan 2mg/ml 1ml) 0.5 mg Q4H PRN IV For Anxiety 12/24/16 08:00 12/31/16 07:59 12/25/16 02:05 Magnesium Hydroxide (Mom) 30 ml HSPRN PRN ORAL Constipation 12/24/16 21:00 01/23/17 20:59 Morphine Sulfate (Morphine Sulfate) 2 mg Q6H PRN IVP Moderate Pain (Pain Scale 4-6) 12/24/16 08:00 12/31/16 07:59 Nitroglycerin (Ntg) 0.4 mg Q5M PRN SL Prn Chest Pain 12/24/16 08:00 Ondansetron HCl (Zofran) 4 mg Q6H PRN IVP Nausea & Vomiting 12/24/16 08:00 01/23/17 07:59 Pantoprazole (Protonix) 40 mg DAILY IV 12/24/16 09:00 01/23/17 08:59 12/25/16 08:31 Promethazine HCl/ Codeine (Phenergan with Codeine) 5 ml Q4H PRN ORAL For Cough 12/24/16 08:00 01/23/17 07:59 Temazepam (Restoril) 15 mg HSPRN PRN ORAL Insomnia 12/24/16 21:00 12/31/16 20:59 Vancomycin HCl (Vanco rx to dose) 1 ea DAILY PRN MISC PER RX PROTOCOL 12/24/16 09:00 01/23/17 08:59 Vancomycin HCl/ Dextrose (Vancomycin/D5W) 275 ml @ 183.708 mls/hr Q12HR IVPB 12/24/16 09:00 12/29/16 08:59 12/25/16 08:30 Todd (Kalen)Rena NP Dec 25, 2016 12:58
--- NOTE | 2016-12-25 13:27 | General Progress Note ---
Assessment/Plan Assessment/Plan ASSESSMENT: 1. Right lower extremity deep venous thrombosis. Has a Right common femoral clot. Has been on coumadin, INR has been btw 2-3 2. Anemia 2/2 hemodilution 3. Hematuria- held heparin gtt. 4. Anemia secondary to iron deficiency - continue currently on iv iron 5. Decrease in hemoglobin and hematocrit, rule out gastrointestinal bleed. 6. Leukocytosis has resolved d/t abx treatment. 7. Thrombocytopenia secondary to hemodilution as well- has improved, counts WNL 8. Elevated blood sugar. 9. Elevated troponin, has been seen by Cardiology service. 10. Hypoxia. RECOMMENDATIONS: 1. Monitor counts. 2. Continue coumadin 3. Appreciate Cardiology and Pulmonary recs 4. Continue iv iron 5. GI prophylaxis with PPI. 6. Antibiotics as needed. 7. Appreciate pulm/cc recs 8. Imaging has been reviewed. 9. Pain control. 11. Appreciate consultation!! Subjective Constitutional: Reports: no symptoms HEENT: Reports: no symptoms Cardiovascular: Reports: no symptoms Respiratory: Reports: other - venturi mask Gastrointestinal/Abdominal: Reports: no symptoms Genitourinary: Reports: no symptoms Neurologic/Psychiatric: Reports: no symptoms Endocrine: Reports: no symptoms Hematologic/Lymphatic: Reports: no symptoms Allergies: Coded Allergies: No Known Allergies (Unverified , 12/05/15) Subjective pt on venturi mask, no signs of distress Objective Last 24 Hour Vital Signs Date Time Temp Pulse Resp B/P Pulse Ox O2 Delivery O2 Flow Rate FiO2 12/25/16 12:00 96.8 64 20 116/63 97 Venturi Mask 10.0 12/25/16 11:29 77 16 99 Venturi Mask 15.0 50 12/25/16 11:29 66 16 97 Venturi Mask 15.0 50 12/25/16 10:09 Venturi Mask 50 12/25/16 10:09 99 Venturi Mask 50 12/25/16 08:08 97.5 62 20 132/79 97 Venturi Mask 10.0 12/25/16 04:00 97.0 60 16 113/67 99 Room Air 12/25/16 00:00 97.9 75 18 138/84 100 Room Air 12/24/16 20:00 97.5 81 18 128/89 98 12/24/16 19:30 Venturi Mask 15.0 50 12/24/16 19:29 97 Venturi Mask 15.0 50 12/24/16 16:00 97.3 77 17 135/81 95 Room Air Intake and Output 12/24/16 12/25/16 19:00 07:00 Intake Total 875.000 ml 725.000 ml Output Total 700 ml 1000 ml Balance 175.000 ml -275.000 ml Intake IV Total 875.000 ml 725.000 ml Output Urine Total 700 ml 1000 ml # Bowel Movements 1 Laboratory Tests 12/25/16 05:05: White Blood Count 6.1, Red Blood Count 3.86L, Hemoglobin 8.2L, Hematocrit 27.4L , Mean Corpuscular Volume 71L, Mean Corpuscular Hemoglobin 21.4L, Mean Corpuscular Hemoglobin Concent 30.1L, Red Cell Distribution Width 16.2H, Platelet Count 179, Mean Platelet Volume 11.4H, Neutrophils (%) (Auto) 54.6, Lymphocytes (%) (Auto) 22.1, Monocytes (%) (Auto) 11.3H, Eosinophils (%) (Auto) 11.0H, Basophils (%) (Auto) 1.1, Prothrombin Time 11.5, Prothromb Time International Ratio 1.1, Sodium Level 142, Potassium Level 2.9L, Chloride Level 101, Carbon Dioxide Level 28, Anion Gap 13, Blood Urea Nitrogen 7, Creatinine 0.9, Estimat Glomerular Filtration Rate > 60, Glucose Level 93, Calcium Level 9.0 Height (Feet): 6 Height (Inches): 0.00 Weight (Pounds): 185 General Appearance: WD/WN EENT: PERRL/EOMI Neck: non-tender Cardiovascular: normal peripheral pulses Respiratory/Chest: no respiratory distress Extremities: normal range of motion Edema: no edema noted Leg (L), no edema noted Leg (R), no edema noted Pedal (L) , no edema noted Pedal (R), no edema noted Generalized Neurologic: normal mood/affect Skin: warm/dry Gilberto Freedman Dec 25, 2016 13:27
[2016-12-25 16:00] VITALS: BP 146/78
[2016-12-25 20:00] VITALS: BP 104/85
[2016-12-25] MEDS: Iron Sucrose 100 MG in NS 55 ML IVPB SCH (20:10)
[2016-12-25] MEDS: D5 1/2NS 1,000 ML IV SCH (20:17)
[2016-12-26] VITALS: BP 127/83
[2016-12-26 04:00] VITALS: BP 116/72
[2016-12-26 06:32] LABS: BASOPHILS % (AUTO) 3.6 % (0.0-2.0); EOSINOPHILS % (AUTO) 12.1 % (0.0-3.0); MEAN CORPUSCULAR HEMOGLOBIN 21.7 PG (27.0-31.0); MEAN CORPUSCULAR HGB CONC 30.8 G/DL (32.0-36.0); MEAN CORPUSCULAR VOLUME 70 FL (80-99); MEAN PLATELET VOLUME 9.2 FL (6.5-10.1); MONOCYTES % (AUTO) 18.7 % (1.0-10.0); NEUTROPHILS % (AUTO) 50.6 % (45.0-75.0); PLATELET COUNT 167 K/UL (150-450); RED BLOOD COUNT 3.71 M/UL (4.70-6.10); RED CELL DISTRIBUTION WIDTH 16.6 % (11.6-14.8)
[2016-12-26 07:17] LABS: ANION GAP 12 (5-15); CALCIUM 8.9 mg/dL (8.6-10.2); CARBON DIOXIDE 28 mEQ/L (20-30); CHLORIDE 104 mEQ/L (98-107); CREATININE 0.8 mg/dL (0.7-1.2); GLOMERULAR FILTRATION RATE > 60 mL/min (>60); HEMOLYSIS 2; POTASSIUM 3.3 mEQ/L (3.4-4.9); SODIUM 144 mEQ/L (135-145)
[2016-12-26] MEDS: Vancomycin 750 MG in D5W 275 ML IVPB SCH ×2 (08:39→21:29)
[2016-12-26] MEDS: Pantoprazole Inj IV SCH (08:41)
[2016-12-26] MEDS: Enoxaparin 80mg Inj SUBQ SCH ×2 (08:43→21:00)
[2016-12-26 08:52] VITALS: BP 115/71
--- NOTE | 2016-12-26 12:53 | Diagnostic Imaging Report ---
Indication: SOB Technique: One view of the chest Comparison: 12/20/2016 Findings: There is increasing right mid and lower lung consolidation. Infiltrate and/or pleural fluid at the left lung base appears somewhat improved. There is persistent elevation of the right hemidiaphragm. The heart remains borderline enlarged. Impression: Increasing infiltrate in the right mid and lower lung. Improved left basilar pleural fluid and/or parenchymal disease Other stable findings as described
[2016-12-26 12:57] VITALS: BP 130/73
--- NOTE | 2016-12-26 14:11 | General Progress Note ---
Assessment/Plan Problem List: (1) Hypernatremia ICD Codes: E87.0 - Hyperosmolality and hypernatremia SNOMED: 19029459 (2) Vomiting ICD Codes: R11.10 - Vomiting, unspecified SNOMED: 550689614 (3) Pancreatitis ICD Codes: K85.9 - Acute pancreatitis, unspecified SNOMED: 68807077 (4) Hiatal hernia ICD Codes: K44.9 - Diaphragmatic hernia without obstruction or gangrene SNOMED: 81166578 (5) Acid reflux ICD Codes: K21.9 - Gastro-esophageal reflux disease without esophagitis SNOMED: 270339681 (6) Lung nodule ICD Codes: R91.1 - Solitary pulmonary nodule SNOMED: 360625373 (7) LFTs abnormal ICD Codes: R79.89 - Other specified abnormal findings of blood chemistry SNOMED: 356185454 (8) HTN (hypertension) ICD Codes: I10 - Essential (primary) hypertension SNOMED: 59076789 (9) Acute kidney injury superimposed on chronic kidney disease ICD Codes: S37.009A - Unspecified injury of unspecified kidney, initial encounter; N18.9 - Chronic kidney disease, unspecified SNOMED: 19980735 (10) Aspiration pneumonia ICD Codes: J69.0 - Pneumonitis due to inhalation of food and vomit SNOMED: 047639996, 620823730 Qualifiers: Qualified Codes: J69.0 - Pneumonitis due to inhalation of food and vomit (11) Proteinuria ICD Codes: R80.9 - Proteinuria, unspecified SNOMED: 06535422, 720499785 Qualifiers: Qualified Codes: R80.9 - Proteinuria, unspecified (12) Anemia, chronic disease ICD Codes: D63.8 - Anemia in other chronic diseases classified elsewhere SNOMED: 908744672, 009961006 (13) Acute respiratory failure with hypoxia ICD Codes: J96.01 - Acute respiratory failure with hypoxia SNOMED: 79346315, 172811284 (14) Dehydration ICD Codes: E86.0 - Dehydration SNOMED: 65607805 (15) MAR (acute kidney injury) ICD Codes: N17.9 - Acute kidney failure, unspecified SNOMED: 35490318 (16) COPD (chronic obstructive pulmonary disease) ICD Codes: J44.9 - Chronic obstructive pulmonary disease, unspecified SNOMED: 42941818 (17) CHF (congestive heart failure) ICD Codes: I50.9 - Heart failure, unspecified SNOMED: 16014355 (18) Severe sepsis with septic shock ICD Codes: A41.9 - Sepsis, unspecified organism; R65.21 - Severe sepsis with septic shock SNOMED: 33298740 (19) HCAP (healthcare-associated pneumonia) ICD Codes: J18.9 - Pneumonia, unspecified organism SNOMED: 101842276 (20) Acute respiratory failure ICD Codes: J96.00 - Acute respiratory failure, unspecified whether with hypoxia or hypercapnia SNOMED: 69560906 (21) Schizophrenia ICD Codes: F20.9 - Schizophrenia, unspecified SNOMED: 80908821 (22) Gallstone ICD Codes: K80.20 - Calculus of gallbladder without cholecystitis without obstruction SNOMED: 433351673 (23) Anemia ICD Codes: D64.9 - Anemia, unspecified SNOMED: 884374472 (24) Osteoarthritis ICD Codes: M19.90 - Unspecified osteoarthritis, unspecified site SNOMED: 901189434 (25) Encephalopathy ICD Codes: G93.40 - Encephalopathy, unspecified SNOMED: 14715692, 258433387 (26) UTI (urinary tract infection) ICD Codes: N39.0 - Urinary tract infection, site not specified SNOMED: 17357592 (27) UTI (urinary tract infection) ICD Codes: N39.0 - Urinary tract infection, site not specified SNOMED: 59044279 (28) Elevated troponin ICD Codes: R74.8 - Abnormal levels of other serum enzymes SNOMED: 534052319, 608247000 (29) Pneumonia ICD Codes: J18.9 - Pneumonia, unspecified organism SNOMED: 880599310 Qualifiers: Qualified Codes: J18.1 - Lobar pneumonia, unspecified organism (30) Severe sepsis ICD Codes: A41.9 - Sepsis, unspecified organism; R65.20 - Severe sepsis without septic shock SNOMED: 06569066, 690072893 (31) Acute DVT (deep venous thrombosis) ICD Codes: I82.409 - Acute embolism and thrombosis of unspecified deep veins of unspecified lower extremity SNOMED: 184842441316930 Status: stable, progressing, tolerating diet Assessment/Plan o2 pulm tx abx cbc bmp am dc plan Subjective Constitutional: Reports: weakness Allergies: Coded Allergies: No Known Allergies (Unverified , 12/05/15) All Systems: reviewed and negative except above Subjective calm weak o2 nc Objective Last 24 Hour Vital Signs Date Time Temp Pulse Resp B/P Pulse Ox O2 Delivery O2 Flow Rate FiO2 12/26/16 12:57 97.3 77 19 130/73 95 Nasal Cannula 2.0 12/26/16 08:52 98.1 74 19 115/71 97 Nasal Cannula 2.0 12/26/16 08:38 93 Venturi Mask 15.0 50 12/26/16 08:38 81 16 93 Nasal Cannula 55 12/26/16 08:38 82 16 93 Venturi Mask 15.0 55 12/26/16 08:38 Venturi Mask 15.0 50 12/26/16 04:00 97.7 80 18 116/72 97 Venturi Mask 10.0 12/26/16 00:00 97.7 77 18 127/83 99 Venturi Mask 10.0 12/25/16 20:00 97.9 84 20 104/85 99 Venturi Mask 10.0 12/25/16 19:35 Venturi Mask 50 12/25/16 19:35 99 Venturi Mask 50 12/25/16 16:00 96.6 80 20 146/78 98 Venturi Mask 10.0 12/25/16 15:28 78 16 97 Mechanical Ventilator 50 12/25/16 15:28 77 16 97 Venturi Mask 15.0 50 Intake and Output 12/25/16 12/26/16 19:00 07:00 Intake Total 825.000 ml 825.000 ml Output Total 450 ml 800 ml Balance 375.000 ml 25.000 ml Intake IV Total 825.000 ml 825.000 ml Output Urine Total 450 ml 800 ml Laboratory Tests 12/26/16 04:40: White Blood Count 5.0, Red Blood Count 3.71L, Hemoglobin 8.0L, Hematocrit 26.2L , Mean Corpuscular Volume 70L, Mean Corpuscular Hemoglobin 21.7L, Mean Corpuscular Hemoglobin Concent 30.8L, Red Cell Distribution Width 16.6H, Platelet Count 167, Mean Platelet Volume 9.2, Neutrophils (%) (Auto) 50.6, Lymphocytes (%) (Auto) 15.0L, Monocytes (%) (Auto) 18.7H, Eosinophils (%) (Auto ) 12.1H, Basophils (%) (Auto) 3.6H, Sodium Level 144, Potassium Level 3.3L, Chloride Level 104, Carbon Dioxide Level 28, Anion Gap 12, Blood Urea Nitrogen 6L, Creatinine 0.8, Estimat Glomerular Filtration Rate > 60, Glucose Level 96, Calcium Level 8.9, Magnesium Level 1.7 Height (Feet): 6 Height (Inches): 0.00 Weight (Pounds): 185 General Appearance: lethargic, confused EENT: normal ENT inspection Neck: normal alignment Cardiovascular: normal peripheral pulses, normal rate, regular rhythm Respiratory/Chest: chest wall non-tender, lungs clear, normal breath sounds Abdomen: normal bowel sounds, non tender, soft Extremities: normal inspection Edema: no edema noted Arm (L), no edema noted Arm (R), no edema noted Leg (L), no edema noted Leg (R), no edema noted Pedal (L), no edema noted Pedal (R), no edema noted Generalized Neurologic: motor weakness Skin: normal pigmentation, warm/dry ALONDRA SINGH Dec 26, 2016 14:11
[2016-12-26] MEDS: D5 1/2NS 1,000 ML IV SCH (14:35)
--- NOTE | 2016-12-26 14:43 | Infectious Diseases Prog Note ---
Assessment/Plan Problems: (1) HCAP (healthcare-associated pneumonia) Assessment & Plan: with Acinetobacter baumannii pansensitive, will continue levaquin , and vancomycin for 14 days. EOT 01/04/17 (2) Severe sepsis with septic shock Assessment & Plan: with leukocytosis, improving with levaquin , and vancomycin . blood culture is negative .continue antibiotics for 14 days, EOT 01/04/17 (3) CHF (congestive heart failure) Assessment & Plan: continue diuresis, cardiology is following (4) COPD (chronic obstructive pulmonary disease) Assessment & Plan: continue inhalers , with antibiotics, pulmonary is following (5) Acute respiratory failure with hypoxia Assessment & Plan: due to pneumonia, on BIPAP , pulmonary is following (6) MAR (acute kidney injury) Assessment & Plan: due to sepsis, continue gentle hydration, adjust meds as per creatinine clearance .consult nephrology (7) Elevated troponin Assessment & Plan: suspect ACS, management as per cardiology , continue tele monitor Subjective ROS Limited/Unobtainable: Yes Allergies: Coded Allergies: No Known Allergies (Unverified , 12/05/15) Subjective he is still on venturi mask, awake and alert,has mild cough , not in distress, afebrile. Objective Vital Signs Last 24 Hour Vital Signs Date Time Temp Pulse Resp B/P Pulse Ox O2 Delivery O2 Flow Rate FiO2 12/26/16 12:57 97.3 77 19 130/73 95 Nasal Cannula 2.0 12/26/16 11:28 72 15 97 Room Air 21 12/26/16 08:52 98.1 74 19 115/71 97 Nasal Cannula 2.0 12/26/16 08:38 93 Venturi Mask 15.0 50 12/26/16 08:38 81 16 93 Nasal Cannula 55 12/26/16 08:38 82 16 93 Venturi Mask 15.0 55 12/26/16 08:38 Venturi Mask 15.0 50 12/26/16 04:00 97.7 80 18 116/72 97 Venturi Mask 10.0 12/26/16 00:00 97.7 77 18 127/83 99 Venturi Mask 10.0 12/25/16 20:00 97.9 84 20 104/85 99 Venturi Mask 10.0 12/25/16 19:35 Venturi Mask 50 12/25/16 19:35 99 Venturi Mask 50 12/25/16 16:00 96.6 80 20 146/78 98 Venturi Mask 10.0 12/25/16 15:28 78 16 97 Mechanical Ventilator 50 12/25/16 15:28 77 16 97 Venturi Mask 15.0 50 Height (Feet): 6 Height (Inches): 0.00 Weight (Pounds): 185 General Appearance: WD/WN, no acute distress HEENT: normocephalic, atraumatic, anicteric, mucous membranes moist, status post trach Respiratory/Chest: chest wall non-tender, no respiratory distress, no accessory muscle use, decreased breath sounds, crackles/rales Cardiovascular: normal peripheral pulses, normal rate, regular rhythm, no JVD Abdomen: normal bowel sounds, soft, non tender, no organomegaly, non distended , no mass Extremities: no cyanosis, no clubbing Skin: no rash, no lesions Laboratory Tests Test 12/26/16 04:40 White Blood Count 5.0 K/UL (4.8-10.8) Red Blood Count 3.71 M/UL (4.70-6.10) L Hemoglobin 8.0 G/DL (14.2-18.0) L Hematocrit 26.2 % (42.0-52.0) L Mean Corpuscular Volume 70 FL (80-99) L Mean Corpuscular Hemoglobin 21.7 PG (27.0-31.0) L Mean Corpuscular Hemoglobin Concent 30.8 G/DL (32.0-36.0) L Red Cell Distribution Width 16.6 % (11.6-14.8) H Platelet Count 167 K/UL (150-450) Mean Platelet Volume 9.2 FL (6.5-10.1) Neutrophils (%) (Auto) 50.6 % (45.0-75.0) Lymphocytes (%) (Auto) 15.0 % (20.0-45.0) L Monocytes (%) (Auto) 18.7 % (1.0-10.0) H Eosinophils (%) (Auto) 12.1 % (0.0-3.0) H Basophils (%) (Auto) 3.6 % (0.0-2.0) H Sodium Level 144 mEQ/L (135-145) Potassium Level 3.3 mEQ/L (3.4-4.9) L Chloride Level 104 mEQ/L (98-107) Carbon Dioxide Level 28 mEQ/L (20-30) Anion Gap 12 (5-15) Blood Urea Nitrogen 6 mg/dL (7-23) L Creatinine 0.8 mg/dL (0.7-1.2) Estimat Glomerular Filtration Rate > 60 mL/min (>60) Glucose Level 96 mg/dL (74-106) Calcium Level 8.9 mg/dL (8.6-10.2) Magnesium Level 1.7 mg/dL (1.7-2.5) Current Medications Medications (Trade) Dose Ordered Sig/Gloria Route PRN Reason Start Time Stop Time Status Last Admin Dose Admin Acetaminophen (Tylenol) 650 mg Q4H PRN ORAL Mild Pain (Pain Scale 1-3) 12/24/16 08:00 01/23/17 07:59 Acetaminophen (Tylenol) 650 mg Q4H PRN RECTAL fever > 100.5F 12/24/16 08:00 01/23/17 07:59 Albuterol/ Ipratropium 3 ml 3 ml Q4H PRN HHN Shortness of Breath 12/24/16 08:15 12/29/16 08:14 Bisacodyl (Dulcolax) 10 mg DAILYPRN PRN RECTAL Constipation 12/24/16 08:00 01/23/17 07:59 Dextrose/Sodium Chloride 1,000 ml @ 50 mls/hr Q20H IV 12/24/16 07:15 01/23/17 07:14 12/26/16 14:35 Enoxaparin Sodium (Lovenox) 80 mg EVERY 12 HOURS SUBQ 12/24/16 09:00 01/23/17 08:59 12/26/16 08:43 Iron Sucrose 100 mg/Sodium Chloride ml @ 240 mls/hr BEDTIME IVPB 12/24/16 21:00 12/26/16 21:14 12/25/16 20:10 Levofloxacin 100 ml @ 100 mls/hr Q24H IVPB 12/24/16 17:00 12/31/16 16:59 12/25/16 18:10 Lorazepam (Ativan 2mg/ml 1ml) 0.5 mg Q4H PRN IV For Anxiety 12/24/16 08:00 12/31/16 07:59 12/25/16 20:10 Magnesium Hydroxide (Mom) 30 ml HSPRN PRN ORAL Constipation 12/24/16 21:00 01/23/17 20:59 Morphine Sulfate (Morphine Sulfate) 2 mg Q6H PRN IVP Moderate Pain (Pain Scale 4-6) 12/24/16 08:00 12/31/16 07:59 Nitroglycerin (Ntg) 0.4 mg Q5M PRN SL Prn Chest Pain 12/24/16 08:00 Ondansetron HCl (Zofran) 4 mg Q6H PRN IVP Nausea & Vomiting 12/24/16 08:00 01/23/17 07:59 Pantoprazole (Protonix) 40 mg DAILY IV 12/24/16 09:00 01/23/17 08:59 12/26/16 08:41 Potassium Chloride (KCl 10mEq/100ml Premix) 100 ml @ 100 mls/hr Q1HR IVPB 12/26/16 14:00 12/26/16 16:59 12/26/16 14:35 Promethazine HCl/ Codeine (Phenergan with Codeine) 5 ml Q4H PRN ORAL For Cough 12/24/16 08:00 01/23/17 07:59 Temazepam (Restoril) 15 mg HSPRN PRN ORAL Insomnia 12/24/16 21:00 12/31/16 20:59 Vancomycin HCl (Vanco rx to dose) 1 ea DAILY PRN MISC PER RX PROTOCOL 12/24/16 09:00 01/23/17 08:59 Vancomycin HCl/ Dextrose (Vancomycin/D5W) 275 ml @ 183.708 mls/hr Q12HR IVPB 12/24/16 09:00 12/29/16 08:59 12/26/16 08:39 Frankie Ratliff M.D. Dec 26, 2016 14:43
--- NOTE | 2016-12-26 14:54 | Cardiac Electrophysiology PN ---
Assessment/Plan Assessment/Plan 1. Hypotension, resolved with IV fluids and intravenous antibiotics . Echocardiogram EF 60%. 2. Troponin leak 0.43 and 0.46. Levels flat and nonspecific. Nonverbal. ECG normal and EF 60% Hold off on aspirin for severe acute anemia and hold off beta uli for hypotension. 3. Increase WBC from 6.9 to >20. Normalized to 6.8 On IV abx per ID 4. Anemia with 3 gm drop in HB from 11 to 8. No obvious gi bleed. ? Dilutional. On Lovenox [address] Tesfaye. 5. Acute RCFV DVT on Lovenox and Coumadin per Dr. Tesfaye. 6. Dysphagia. Failed video swallow eval. MARY KAY RN Subjective Subjective Confused.Nonverbal. RNs at bedside. Failed swallow eval today. Objective Last 24 Hour Vital Signs Date Time Temp Pulse Resp B/P Pulse Ox O2 Delivery O2 Flow Rate FiO2 12/26/16 12:57 97.3 77 19 130/73 95 Nasal Cannula 2.0 12/26/16 11:28 82 15 97 Nasal Cannula 2.0 28 12/26/16 10:40 80 16 96 Nasal Cannula 2.0 28 12/26/16 08:52 98.1 74 19 115/71 97 Nasal Cannula 2.0 12/26/16 08:38 93 Venturi Mask 15.0 50 12/26/16 08:38 81 16 93 Nasal Cannula 55 12/26/16 08:38 82 16 93 Venturi Mask 15.0 55 12/26/16 08:38 Venturi Mask 15.0 50 12/26/16 04:00 97.7 80 18 116/72 97 Venturi Mask 10.0 12/26/16 00:00 97.7 77 18 127/83 99 Venturi Mask 10.0 12/25/16 20:00 97.9 84 20 104/85 99 Venturi Mask 10.0 12/25/16 19:35 Venturi Mask 50 12/25/16 19:35 99 Venturi Mask 50 12/25/16 16:00 96.6 80 20 146/78 98 Venturi Mask 10.0 12/25/16 15:28 78 16 97 Mechanical Ventilator 50 12/25/16 15:28 77 16 97 Venturi Mask 15.0 50 Intake and Output 12/25/16 12/26/16 19:00 07:00 Intake Total 825.000 ml 825.000 ml Output Total 450 ml 800 ml Balance 375.000 ml 25.000 ml Intake IV Total 825.000 ml 825.000 ml Output Urine Total 450 ml 800 ml Laboratory Tests Test 12/26/16 04:40 White Blood Count 5.0 K/UL (4.8-10.8) Red Blood Count 3.71 M/UL (4.70-6.10) L Hemoglobin 8.0 G/DL (14.2-18.0) L Hematocrit 26.2 % (42.0-52.0) L Mean Corpuscular Volume 70 FL (80-99) L Mean Corpuscular Hemoglobin 21.7 PG (27.0-31.0) L Mean Corpuscular Hemoglobin Concent 30.8 G/DL (32.0-36.0) L Red Cell Distribution Width 16.6 % (11.6-14.8) H Platelet Count 167 K/UL (150-450) Mean Platelet Volume 9.2 FL (6.5-10.1) Neutrophils (%) (Auto) 50.6 % (45.0-75.0) Lymphocytes (%) (Auto) 15.0 % (20.0-45.0) L Monocytes (%) (Auto) 18.7 % (1.0-10.0) H Eosinophils (%) (Auto) 12.1 % (0.0-3.0) H Basophils (%) (Auto) 3.6 % (0.0-2.0) H Sodium Level 144 mEQ/L (135-145) Potassium Level 3.3 mEQ/L (3.4-4.9) L Chloride Level 104 mEQ/L (98-107) Carbon Dioxide Level 28 mEQ/L (20-30) Anion Gap 12 (5-15) Blood Urea Nitrogen 6 mg/dL (7-23) L Creatinine 0.8 mg/dL (0.7-1.2) Estimat Glomerular Filtration Rate > 60 mL/min (>60) Glucose Level 96 mg/dL (74-106) Calcium Level 8.9 mg/dL (8.6-10.2) Magnesium Level 1.7 mg/dL (1.7-2.5) Objective HEAD AND NECK: No JVD. LUNGS: Coarse rhonchi. CARDIOVASCULAR: Regular S1 and S2 with no gallop or murmur. ABDOMEN: Soft. EXTREMITIES: No pitting edema, lower extremities of contraction in position. VOLODYMYR HOSKINS Dec 26, 2016 14:54
[2016-12-26 16:38] VITALS: BP 145/85
--- NOTE | 2016-12-26 17:32 | GI Initial Consult Note ---
History of Present Illness General Date patient seen: Dec 26, 2016 Time patient seen: 17:27 Reason for Hospitalization: Dyspnea/Respdistress Referring physician: ALONDRA SINGH Reason for Consultation: PEG EVALUATION Present Illness HPI Is a 66-year-old male from [place]. He has a history of schizophrenia and COPD. He presents with chief complaint of respiratory distress. Onset for last couple days. Per EMS he was hypoxic. snf called 911 because of this. Is no fever or chills. No nausea no vomiting. Mental status per EMS was at baseline. He is a full code. History limited because the patient is a poor historian. GI CONSULT: HPI as noted above. GI consulted for PEG evaluation. HPI/ROS limited, pt AMS. ST reviewed, pt recommended for fdc non oral feedings. Pt presents today with anemia and iron deficiency. No history of any endoscopic procedures. Home Meds Active Scripts Trimethoprim/Sulfamethoxazole (Bactrim 400-80 mg Tablet) 1 Ea Tab, 1 TAB ORAL TWICE A DAY for 3 Days, TAB Prov:Wendi Sams BLACK OXIDE OPERATOR 12/08/15 Tamsulosin HCl (Flomax) 0.4 Mg Cap, 0.4 MG ORAL BEDTIME, #1 CAP Prov:Wendi Sams BLACK OXIDE OPERATOR 12/08/15 Reported Medications Midodrine* (PROAMATINE*) 5 Mg Tablet, 5 MG ORAL THREE TIMES A DAY, TAB 12/20/16 Esomeprazole Magnesium (NEXIUM) 40 Mg Capsule.dr, 40 MG ORAL DAILY, CAP 12/20/16 Bisacodyl (BISACODYL) 10 Mg Supp.rect, 10 MG RC, SUPP 12/20/16 Ipratropium/Albuterol Sulfate (DuoNeb 0.5-3(2.5)mg/3ml) 3 Ml Ampul.neb, 3 ML HHN , EA 12/05/15 Midodrine* (PROAMATINE*) 5 Mg Tablet, 5 MG ORAL THREE TIMES A DAY, TAB 12/05/15 Multivitamin with Minerals (Multivitamins with Minerals) 1 Each Tablet, 1 TAB ORAL DAILY, TAB 12/05/15 Omeprazole (PRILOSEC) 40 Mg Capsule.dr, 40 MG ORAL ACBREAKFAST, CAP 12/05/15 Lorazepam* (ATIVAN*) 0.5 Mg Tablet, 0.25 MG ORAL EVERY 8 HOURS Y for For Anxiety , TAB 12/05/15 Magnesium Hydroxide (Milk of Magnesia) 30 Ml Susp, 30 ML ORAL DAILY 12/05/15 Docusate Sodium* (COLACE*) 100 Mg Capsule, 100 MG ORAL DAILY, CAP 12/05/15 Risperidone* (RISPERDAL*) 1 Mg Tablet, 0.5 MG PO HS, TAB 12/05/15 Diphenhydramine HCl (Diphenhydramine HCl) 50 Mg Cap, 50 MG ORAL Q6H Y for Itching, CAP 12/05/15 Al Hydroxide/mg Hydroxide (Mag-Al Liquid) 30 Ml Susp, 30 ML GT 12/05/15 Discontinued Reported Medications Acetaminophen (Tylenol) 325 Mg Tab, 650 MG ORAL Q6H Y for For Pain, #30 TAB 0 Refills 12/05/15 Med list reviewed/reconciled: Yes Allergies: Coded Allergies: No Known Allergies (Unverified , 12/05/15) Patient History Limited by: medical condition History Provided By: Medical Record PMH Narrative Past Medical History: see triage record, old chart reviewed, COPD Past Surgical History: other Pertinent Family History: none Social History: Denies: smoking Immunizations: other Reviewed Nursing Documentation: PMH: Agreed, PSxH: Agreed Nursing Documentation-PMH Past Medical History: No History, Except For Hx Cardiac Problems: Yes - HF, Hx Hypertension: Yes Hx COPD: Yes Hx Cancer: No Review of Systems All Other Systems: limited Physical Exam Vital Signs Date Time Temp Pulse Resp B/P Pulse Ox O2 Delivery O2 Flow Rate FiO2 12/22/16 07:54 69 12/22/16 08:30 98.4 17 113/69 100 Venturi Mask 50 12/22/16 20:21 15.0 Sp02 EP Interpretation: reviewed Labs Laboratory Tests Test 12/26/16 04:40 White Blood Count 5.0 K/UL (4.8-10.8) Red Blood Count 3.71 M/UL (4.70-6.10) L Hemoglobin 8.0 G/DL (14.2-18.0) L Hematocrit 26.2 % (42.0-52.0) L Mean Corpuscular Volume 70 FL (80-99) L Mean Corpuscular Hemoglobin 21.7 PG (27.0-31.0) L Mean Corpuscular Hemoglobin Concent 30.8 G/DL (32.0-36.0) L Red Cell Distribution Width 16.6 % (11.6-14.8) H Platelet Count 167 K/UL (150-450) Mean Platelet Volume 9.2 FL (6.5-10.1) Neutrophils (%) (Auto) 50.6 % (45.0-75.0) Lymphocytes (%) (Auto) 15.0 % (20.0-45.0) L Monocytes (%) (Auto) 18.7 % (1.0-10.0) H Eosinophils (%) (Auto) 12.1 % (0.0-3.0) H Basophils (%) (Auto) 3.6 % (0.0-2.0) H Sodium Level 144 mEQ/L (135-145) Potassium Level 3.3 mEQ/L (3.4-4.9) L Chloride Level 104 mEQ/L (98-107) Carbon Dioxide Level 28 mEQ/L (20-30) Anion Gap 12 (5-15) Blood Urea Nitrogen 6 mg/dL (7-23) L Creatinine 0.8 mg/dL (0.7-1.2) Estimat Glomerular Filtration Rate > 60 mL/min (>60) Glucose Level 96 mg/dL (74-106) Calcium Level 8.9 mg/dL (8.6-10.2) Magnesium Level 1.7 mg/dL (1.7-2.5) General Appearance: no apparent distress, alert Head: normocephalic EENT: PERRL/EOMI, normal ENT inspection Neck: supple Respiratory: no respiratory distress Cardiovascular: other - see cardio note Gastrointestinal: soft Rectal: deferred Musculoskeletal: other - position Neurologic: alert, responsive, other - non verbal Skin: normal inspection, normal color, no rash Lymphatic: normal inspection, no adenopathy Current Medications Current Medications Medications (Trade) Dose Ordered Sig/Gloria Route PRN Reason Start Time Stop Time Status Last Admin Dose Admin Acetaminophen (Tylenol) 650 mg Q4H PRN ORAL Mild Pain (Pain Scale 1-3) 12/24/16 08:00 01/23/17 07:59 Acetaminophen (Tylenol) 650 mg Q4H PRN RECTAL fever > 100.5F 12/24/16 08:00 01/23/17 07:59 Albuterol/ Ipratropium (DuoNeb 0.5-3(2.5)mg/3ml) 3 ml Q4H PRN HHN Shortness of Breath 12/24/16 08:15 12/29/16 08:14 Bisacodyl (Dulcolax) 10 mg DAILYPRN PRN RECTAL Constipation 12/24/16 08:00 01/23/17 07:59 Dextrose/Sodium Chloride 1,000 ml @ 50 mls/hr Q20H IV 12/24/16 07:15 01/23/17 07:14 12/26/16 14:35 Enoxaparin Sodium (Lovenox) 80 mg EVERY 12 HOURS SUBQ 12/24/16 09:00 01/23/17 08:59 12/26/16 08:43 Iron Sucrose 100 mg/Sodium Chloride ml @ 240 mls/hr BEDTIME IVPB 12/24/16 21:00 12/26/16 21:14 12/25/16 20:10 Levofloxacin 100 ml @ 100 mls/hr Q24H IVPB 12/24/16 17:00 12/31/16 16:59 12/25/16 18:10 Lorazepam (Ativan 2mg/ml 1ml) 0.5 mg Q4H PRN IV For Anxiety 12/24/16 08:00 12/31/16 07:59 12/25/16 20:10 Magnesium Hydroxide (Mom) 30 ml HSPRN PRN ORAL Constipation 12/24/16 21:00 01/23/17 20:59 Morphine Sulfate (Morphine Sulfate) 2 mg Q6H PRN IVP Moderate Pain (Pain Scale 4-6) 12/24/16 08:00 12/31/16 07:59 Nitroglycerin (Ntg) 0.4 mg Q5M PRN SL Prn Chest Pain 12/24/16 08:00 Ondansetron HCl (Zofran) 4 mg Q6H PRN IVP Nausea & Vomiting 12/24/16 08:00 01/23/17 07:59 Pantoprazole (Protonix) 40 mg DAILY IV 12/24/16 09:00 01/23/17 08:59 12/26/16 08:41 Promethazine HCl/ Codeine (Phenergan with Codeine) 5 ml Q4H PRN ORAL For Cough 12/24/16 08:00 01/23/17 07:59 Temazepam (Restoril) 15 mg HSPRN PRN ORAL Insomnia 12/24/16 21:00 12/31/16 20:59 Vancomycin HCl (Vanco rx to dose) 1 ea DAILY PRN MISC PER RX PROTOCOL 12/24/16 09:00 01/23/17 08:59 Vancomycin HCl/ Dextrose (Vancomycin/D5W) 275 ml @ 183.708 mls/hr Q12HR IVPB 12/24/16 09:00 12/29/16 08:59 12/26/16 08:39 GI: Plan Problems: (1) Encounter for PEG (percutaneous endoscopic gastrostomy) (2) Elevated troponin (3) Anemia (4) Schizophrenia Plan ST eval noted >> fdc non oral feeds to meet nutritional needs pt scheduled for EGD/PEG tomorrow. - NPO @ [facility]. - Hold tonight and tomorrows dose of lovenox, ok to start 8 hours post procedure. - will contact cardiology for clearance cont ppi iron deficiency >> cont venofer fu labs Discussed with Dr. Dinh. Thank you for referring this patient, we will follow. Beth Carver N.P. Dec 26, 2016 17:32
--- NOTE | 2016-12-26 18:05 | General Progress Note ---
Assessment/Plan Assessment/Plan ASSESSMENT: 1. Right lower extremity deep venous thrombosis. Has a Right common femoral clot. 2. Anemia 2/2 hemodilution 3. Hematuria- better now 4. Anemia secondary to iron deficiency - continue currently on iv iron 5. Decrease in hemoglobin and hematocrit, rule out gastrointestinal bleed. 6. Leukocytosis has resolved d/t abx treatment. 7. Thrombocytopenia secondary to hemodilution as well- has improved, counts WNL 8. Elevated blood sugar. 9. Elevated troponin, has been seen by Cardiology service. 10. Hypoxia. RECOMMENDATIONS: 1. Monitor counts. 2. Continue lovenox, hold coumadin because pt failed swallow eval 3. Appreciate Cardiology and Pulmonary recs 4. Continue iv iron 5. GI prophylaxis with PPI. 6. Antibiotics as needed. 7. Appreciate pulm/cc recs 8. Imaging has been reviewed. 9. Pain control. 11. Appreciate consultation!! Subjective ROS Limited/Unobtainable: Yes Constitutional: Reports: no symptoms HEENT: Reports: no symptoms Cardiovascular: Reports: no symptoms Respiratory: Reports: no symptoms Gastrointestinal/Abdominal: Reports: no symptoms Genitourinary: Reports: no symptoms Neurologic/Psychiatric: Reports: no symptoms Endocrine: Reports: no symptoms Hematologic/Lymphatic: Reports: anemia Allergies: Coded Allergies: No Known Allergies (Unverified , 12/05/15) Subjective NAD, remains confused, nonverbal, o2 via nc Objective Last 24 Hour Vital Signs Date Time Temp Pulse Resp B/P Pulse Ox O2 Delivery O2 Flow Rate FiO2 12/26/16 16:38 98.1 81 19 145/85 95 Room Air 12/26/16 16:27 83 18 97 Nasal Cannula 2.0 28 12/26/16 16:27 84 18 96 Nasal Cannula 2.0 28 12/26/16 12:57 97.3 77 19 130/73 95 Nasal Cannula 2.0 12/26/16 11:28 82 15 97 Nasal Cannula 2.0 28 12/26/16 10:40 80 16 96 Nasal Cannula 2.0 28 12/26/16 08:52 98.1 74 19 115/71 97 Nasal Cannula 2.0 12/26/16 08:38 93 Venturi Mask 15.0 50 12/26/16 08:38 81 16 93 Nasal Cannula 55 12/26/16 08:38 82 16 93 Venturi Mask 15.0 55 12/26/16 08:38 Venturi Mask 15.0 50 12/26/16 04:00 97.7 80 18 116/72 97 Venturi Mask 10.0 12/26/16 00:00 97.7 77 18 127/83 99 Venturi Mask 10.0 12/25/16 20:00 97.9 84 20 104/85 99 Venturi Mask 10.0 12/25/16 19:35 Venturi Mask 50 12/25/16 19:35 99 Venturi Mask 50 Intake and Output 12/25/16 12/26/16 19:00 07:00 Intake Total 825.000 ml 825.000 ml Output Total 450 ml 800 ml Balance 375.000 ml 25.000 ml Intake IV Total 825.000 ml 825.000 ml Output Urine Total 450 ml 800 ml Laboratory Tests 12/26/16 04:40: White Blood Count 5.0, Red Blood Count 3.71L, Hemoglobin 8.0L, Hematocrit 26.2L , Mean Corpuscular Volume 70L, Mean Corpuscular Hemoglobin 21.7L, Mean Corpuscular Hemoglobin Concent 30.8L, Red Cell Distribution Width 16.6H, Platelet Count 167, Mean Platelet Volume 9.2, Neutrophils (%) (Auto) 50.6, Lymphocytes (%) (Auto) 15.0L, Monocytes (%) (Auto) 18.7H, Eosinophils (%) (Auto ) 12.1H, Basophils (%) (Auto) 3.6H, Sodium Level 144, Potassium Level 3.3L, Chloride Level 104, Carbon Dioxide Level 28, Anion Gap 12, Blood Urea Nitrogen 6L, Creatinine 0.8, Estimat Glomerular Filtration Rate > 60, Glucose Level 96, Calcium Level 8.9, Magnesium Level 1.7 Height (Feet): 6 Height (Inches): 0.00 Weight (Pounds): 185 General Appearance: no apparent distress EENT: PERRL/EOMI Neck: non-tender Cardiovascular: normal peripheral pulses Respiratory/Chest: chest wall non-tender Abdomen: normal bowel sounds Extremities: normal range of motion Edema: no edema noted Leg (L), no edema noted Leg (R), no edema noted Pedal (L) , no edema noted Pedal (R), no edema noted Generalized Neurologic: sole rounder II-XII grossly normal Skin: warm/dry ValenciaynGilberto bhatti Dec 26, 2016 18:05
[2016-12-26 20:00] VITALS: BP 122/32
[2016-12-26] MEDS: cefOXitin Sod 1 GM in D5W 55 ML IV SCH (21:29)
[2016-12-26] MEDS: Iron Sucrose 100 MG in NS 55 ML IVPB SCH (21:30)
--- NOTE | 2016-12-26 22:43 | Pulmonology Progress Note ---
Assessment/Plan Problems: (1) Severe sepsis (2) Pneumonia (3) Acute respiratory failure (4) Acute DVT (deep venous thrombosis) (5) MAR (acute kidney injury) (6) Anemia (7) Encephalopathy Assessment/Plan IV antibiotics check cultures swallow study check cultures tolerating feeding dvt prophylaxis Subjective ROS Limited/Unobtainable: No Allergies: Coded Allergies: No Known Allergies (Unverified , 12/05/15) Objective Last 24 Hour Vital Signs Date Time Temp Pulse Resp B/P Pulse Ox O2 Delivery O2 Flow Rate FiO2 12/26/16 20:00 94.6 99 19 122/32 63 Nasal Cannula 1.0 12/26/16 19:21 92 Venturi Mask 15.0 50 12/26/16 19:21 Venturi Mask 15.0 50 12/26/16 16:38 98.1 81 19 145/85 95 Room Air 12/26/16 16:27 83 18 97 Nasal Cannula 2.0 28 12/26/16 16:27 84 18 96 Nasal Cannula 2.0 28 12/26/16 12:57 97.3 77 19 130/73 95 Nasal Cannula 2.0 12/26/16 11:28 82 15 97 Nasal Cannula 2.0 28 12/26/16 10:40 80 16 96 Nasal Cannula 2.0 28 12/26/16 08:52 98.1 74 19 115/71 97 Nasal Cannula 2.0 12/26/16 08:38 93 Venturi Mask 15.0 50 12/26/16 08:38 81 16 93 Nasal Cannula 55 12/26/16 08:38 82 16 93 Venturi Mask 15.0 55 12/26/16 08:38 Venturi Mask 15.0 50 12/26/16 04:00 97.7 80 18 116/72 97 Venturi Mask 10.0 12/26/16 00:00 97.7 77 18 127/83 99 Venturi Mask 10.0 Intake and Output 12/25/16 12/26/16 19:00 07:00 Intake Total 825.000 ml 825.000 ml Output Total 450 ml 800 ml Balance 375.000 ml 25.000 ml Intake IV Total 825.000 ml 825.000 ml Output Urine Total 450 ml 800 ml Objective General Appearance: WD/WN, no apparent distress Lines, tubes and drains: peripheral HEENT: normocephalic, atraumatic Neck: non-tender, supple Respiratory/Chest: chest wall non-tender, rhonchi - bilaterally Cardiovascular/Chest: normal peripheral pulses, normal rate Abdomen: normal bowel sounds Genitourinary/Rectal: normal genital exam Extremities: normal range of motion Laboratory Tests 12/26/16 04:40: White Blood Count 5.0, Red Blood Count 3.71L, Hemoglobin 8.0L, Hematocrit 26.2L , Mean Corpuscular Volume 70L, Mean Corpuscular Hemoglobin 21.7L, Mean Corpuscular Hemoglobin Concent 30.8L, Red Cell Distribution Width 16.6H, Platelet Count 167, Mean Platelet Volume 9.2, Neutrophils (%) (Auto) 50.6, Lymphocytes (%) (Auto) 15.0L, Monocytes (%) (Auto) 18.7H, Eosinophils (%) (Auto ) 12.1H, Basophils (%) (Auto) 3.6H, Sodium Level 144, Potassium Level 3.3L, Chloride Level 104, Carbon Dioxide Level 28, Anion Gap 12, Blood Urea Nitrogen 6L, Creatinine 0.8, Estimat Glomerular Filtration Rate > 60, Glucose Level 96, Calcium Level 8.9, Magnesium Level 1.7 Current Medications Medications (Trade) Dose Ordered Sig/Gloria Route PRN Reason Start Time Stop Time Status Last Admin Dose Admin Acetaminophen (Tylenol) 650 mg Q4H PRN ORAL Mild Pain (Pain Scale 1-3) 12/24/16 08:00 01/23/17 07:59 Acetaminophen (Tylenol) 650 mg Q4H PRN RECTAL fever > 100.5F 12/24/16 08:00 01/23/17 07:59 Albuterol/ Ipratropium 3 ml 3 ml Q4H PRN HHN Shortness of Breath 12/24/16 08:15 12/29/16 08:14 Bisacodyl (Dulcolax) 10 mg DAILYPRN PRN RECTAL Constipation 12/24/16 08:00 01/23/17 07:59 Cefoxitin Sodium/ Dextrose (Mefoxin/D5W) 55 ml @ 110 mls/hr ONCE IV 12/26/16 19:00 12/27/16 23:59 12/26/16 21:29 Dextrose/Sodium Chloride 1,000 ml @ 50 mls/hr Q20H IV 12/24/16 07:15 01/23/17 07:14 12/26/16 14:35 Enoxaparin Sodium (Lovenox) 80 mg EVERY 12 HOURS SUBQ 12/24/16 09:00 01/23/17 08:59 12/26/16 08:43 Levofloxacin 100 ml @ 100 mls/hr Q24H IVPB 12/24/16 17:00 12/31/16 16:59 12/26/16 21:23 Lorazepam (Ativan 2mg/ml 1ml) 0.5 mg Q4H PRN IV For Anxiety 12/24/16 08:00 12/31/16 07:59 12/25/16 20:10 Magnesium Hydroxide (Mom) 30 ml HSPRN PRN ORAL Constipation 12/24/16 21:00 01/23/17 20:59 Morphine Sulfate (Morphine Sulfate) 2 mg Q6H PRN IVP Moderate Pain (Pain Scale 4-6) 12/24/16 08:00 12/31/16 07:59 Nitroglycerin (Ntg) 0.4 mg Q5M PRN SL Prn Chest Pain 12/24/16 08:00 Ondansetron HCl (Zofran) 4 mg Q6H PRN IVP Nausea & Vomiting 12/24/16 08:00 01/23/17 07:59 Pantoprazole (Protonix) 40 mg DAILY IV 12/24/16 09:00 01/23/17 08:59 12/26/16 08:41 Promethazine HCl/ Codeine (Phenergan with Codeine) 5 ml Q4H PRN ORAL For Cough 12/24/16 08:00 01/23/17 07:59 Temazepam (Restoril) 15 mg HSPRN PRN ORAL Insomnia 12/24/16 21:00 12/31/16 20:59 Vancomycin HCl (Vanco rx to dose) 1 ea DAILY PRN MISC PER RX PROTOCOL 12/24/16 09:00 01/23/17 08:59 Vancomycin HCl/ Dextrose (Vancomycin/D5W) 275 ml @ 183.708 mls/hr Q12HR IVPB 12/24/16 09:00 12/29/16 08:59 12/26/16 21:29 ALMA LINDO Dec 26, 2016 22:43
[2016-12-27] VITALS: BP 105/65
[2016-12-27 04:00] VITALS: BP 116/81
[2016-12-27 06:55] LABS: BASOPHILS % (AUTO) 1.3 % (0.0-2.0); EOSINOPHILS % (AUTO) 4.4 % (0.0-3.0); LYMPHOCYTES % (AUTO) 22.8 % (20.0-45.0); MEAN CORPUSCULAR HGB CONC 31.2 G/DL (32.0-36.0); MEAN CORPUSCULAR VOLUME 71 FL (80-99); MEAN PLATELET VOLUME 8.8 FL (6.5-10.1); MONOCYTES % (AUTO) 18.2 % (1.0-10.0); NEUTROPHILS % (AUTO) 53.4 % (45.0-75.0); PLATELET COUNT 173 K/UL (150-450); RED BLOOD COUNT 3.78 M/UL (4.70-6.10); RED CELL DISTRIBUTION WIDTH 16.7 % (11.6-14.8); WHITE BLOOD COUNT 4.6 K/UL (4.8-10.8)
[2016-12-27 07:08] LABS: INR 1.1 (0.9-1.1); PROTHROMBIN TIME 11.7 SEC (9.30-11.50)
[2016-12-27 07:13] LABS: ANION GAP 11 (5-15); CALCIUM 8.8 mg/dL (8.6-10.2); CARBON DIOXIDE 28 mEQ/L (20-30); CHLORIDE 101 mEQ/L (98-107); CREATININE 0.9 mg/dL (0.7-1.2); GLOMERULAR FILTRATION RATE > 60 mL/min (>60); HEMOLYSIS 3; POTASSIUM 3.3 mEQ/L (3.4-4.9); SODIUM 140 mEQ/L (135-145)
[2016-12-27 08:00] VITALS: BP 102/62
[2016-12-27] MEDS: Pantoprazole Inj IV SCH (08:30)
[2016-12-27] MEDS: Vancomycin 750 MG in D5W 275 ML IVPB SCH ×2 (08:32→21:00)
[2016-12-27] MEDS: Enoxaparin 80mg Inj SUBQ SCH ×2 (08:32→22:28)
[2016-12-27 12:00] VITALS: BP 114/84
[2016-12-27 12:28] VITALS: BP 114/84
--- NOTE | 2016-12-27 13:33 | General Progress Note ---
Progress Note Progress Note Bioethics 66 yo with schizophrenia, unrepresented, has severe swallowing dysfunction predisposing to aspiration. Awake, non interactive. G-tube for feeding is necessary to prevent further episodes of aspiration. Would seem reasonable from bioethics perspective. Two physicians will sign consent. Mirtha Moreno M.D. Chair, Bioethics Committee MIRTHA MORENO Dec 27, 2016 13:33
--- NOTE | 2016-12-27 13:37 | GI Progress Note ---
Assessment/Plan Problems: (1) Schizophrenia ICD Codes: F20.9 - Schizophrenia, unspecified SNOMED: 55667927 (2) Anemia ICD Codes: D64.9 - Anemia, unspecified SNOMED: 588543330 (3) Severe sepsis ICD Codes: A41.9 - Sepsis, unspecified organism; R65.20 - Severe sepsis without septic shock SNOMED: 29146688, 148352098 (4) Hiatal hernia ICD Codes: K44.9 - Diaphragmatic hernia without obstruction or gangrene SNOMED: 65597793 (5) Hypernatremia ICD Codes: E87.0 - Hyperosmolality and hypernatremia SNOMED: 84244762 (6) Encounter for PEG (percutaneous endoscopic gastrostomy) ICD Codes: Z43.1 - Encounter for attention to gastrostomy SNOMED: 021296167, 959033920 Status: unchanged Status Narrative Discussed with Dr. Dinh. Assessment/Plan ST eval noted >> fpc non oral feeds to meet nutritional needs EGD/PEG cancelled >> unable to obtain consent, bioethics consulted NPO resume lovenox cont ppi iron deficiency >> cont venofer fu labs update* bioethics consult reviewed >> 2xMD's to sign consent, patient will be scheduled tomorrow. Subjective Subjective limited, AMS Objective Last 24 Hour Vital Signs Date Time Temp Pulse Resp B/P Pulse Ox O2 Delivery O2 Flow Rate FiO2 12/27/16 12:00 97.4 74 20 114/84 94 Room Air 12/27/16 08:00 97.8 77 20 102/62 98 Nasal Cannula 2.0 12/27/16 07:13 98 Nasal Cannula 2.0 28 12/27/16 07:13 Nasal Cannula 2.0 28 12/27/16 04:00 98.2 81 19 116/81 95 Nasal Cannula 12/27/16 03:25 92 Room Air 12/27/16 00:00 97.8 77 19 105/65 97 Room Air 12/26/16 20:00 94.6 99 19 122/32 63 Nasal Cannula 1.0 12/26/16 19:21 92 Venturi Mask 15.0 50 12/26/16 19:21 Venturi Mask 15.0 50 12/26/16 16:38 98.1 81 19 145/85 95 Room Air 12/26/16 16:27 83 18 97 Nasal Cannula 2.0 28 12/26/16 16:27 84 18 96 Nasal Cannula 2.0 28 Intake and Output 12/26/16 12/27/16 19:00 07:00 Output Total 800 ml 500 ml Balance -800 ml -500 ml Output Urine Total 800 ml 500 ml Laboratory Tests Test 12/27/16 05:35 White Blood Count 4.6 K/UL (4.8-10.8) L Red Blood Count 3.78 M/UL (4.70-6.10) L Hemoglobin 8.3 G/DL (14.2-18.0) L Hematocrit 26.7 % (42.0-52.0) L Mean Corpuscular Volume 71 FL (80-99) L Mean Corpuscular Hemoglobin 22.0 PG (27.0-31.0) L Mean Corpuscular Hemoglobin Concent 31.2 G/DL (32.0-36.0) L Red Cell Distribution Width 16.7 % (11.6-14.8) H Platelet Count 173 K/UL (150-450) Mean Platelet Volume 8.8 FL (6.5-10.1) Neutrophils (%) (Auto) 53.4 % (45.0-75.0) Lymphocytes (%) (Auto) 22.8 % (20.0-45.0) Monocytes (%) (Auto) 18.2 % (1.0-10.0) H Eosinophils (%) (Auto) 4.4 % (0.0-3.0) H Basophils (%) (Auto) 1.3 % (0.0-2.0) Prothrombin Time 11.7 SEC (9.30-11.50) H Prothromb Time International Ratio 1.1 (0.9-1.1) Activated Partial Thromboplast Time 33 SEC (23-33) Sodium Level 140 mEQ/L (135-145) Potassium Level 3.3 mEQ/L (3.4-4.9) L Chloride Level 101 mEQ/L (98-107) Carbon Dioxide Level 28 mEQ/L (20-30) Anion Gap 11 (5-15) Blood Urea Nitrogen 6 mg/dL (7-23) L Creatinine 0.9 mg/dL (0.7-1.2) Estimat Glomerular Filtration Rate > 60 mL/min (>60) Glucose Level 101 mg/dL (74-106) Calcium Level 8.8 mg/dL (8.6-10.2) Height (Feet): 6 Height (Inches): 0.00 Weight (Pounds): 185 General Appearance: no apparent distress, alert Cardiovascular: normal rate Respiratory/Chest: normal breath sounds, no respiratory distress Abdominal Exam: normal bowel sounds, non tender, soft Beth Carver N.P. Dec 27, 2016 13:37
[2016-12-27] MEDS: KCl 10mEq 100ml Premix IVPB SCH ×2 (13:40→14:38)
--- NOTE | 2016-12-27 14:21 | General Progress Note ---
Assessment/Plan Assessment/Plan ASSESSMENT: 1. Right lower extremity deep venous thrombosis. Has a Right common femoral clot. On lovenox. Unable to swallow PO meds 2. Anemia 2/2 hemodilution 3. Hematuria- better now 4. Anemia secondary to iron deficiency 5. Decrease in hemoglobin and hematocrit, rule out gastrointestinal bleed. 6. Leukocytosis has resolved d/t abx treatment. 7. Thrombocytopenia secondary to hemodilution as well- has improved, counts WNL 8. Elevated blood sugar. 9. Elevated troponin, has been seen by Cardiology service. 10. Hypoxia. RECOMMENDATIONS: - Monitor counts. - Continue lovenox for DVT. - Continue IV iron for iron deficiency anemia. - Appreciate Cardiology and Pulmonary recs - GI prophylaxis with PPI. - Antibiotics as needed. - Appreciate pulm/cc recs - Imaging has been reviewed. - Pain control. - Appreciate consultation!! Subjective ROS Limited/Unobtainable: Yes Constitutional: Reports: no symptoms HEENT: Reports: no symptoms Cardiovascular: Reports: no symptoms Respiratory: Reports: no symptoms Gastrointestinal/Abdominal: Reports: no symptoms Genitourinary: Reports: no symptoms Neurologic/Psychiatric: Reports: other - confused Endocrine: Reports: no symptoms Hematologic/Lymphatic: Reports: anemia Allergies: Coded Allergies: No Known Allergies (Unverified , 12/05/15) Subjective NAD, remains confused, nonverbal, dysphagia Objective Last 24 Hour Vital Signs Date Time Temp Pulse Resp B/P Pulse Ox O2 Delivery O2 Flow Rate FiO2 12/27/16 12:00 97.4 74 20 114/84 94 Room Air 12/27/16 08:00 97.8 77 20 102/62 98 Nasal Cannula 2.0 12/27/16 07:13 98 Nasal Cannula 2.0 28 12/27/16 07:13 Nasal Cannula 2.0 28 12/27/16 04:00 98.2 81 19 116/81 95 Nasal Cannula 12/27/16 03:25 92 Room Air 12/27/16 00:00 97.8 77 19 105/65 97 Room Air 12/26/16 20:00 94.6 99 19 122/32 63 Nasal Cannula 1.0 12/26/16 19:21 92 Venturi Mask 15.0 50 12/26/16 19:21 Venturi Mask 15.0 50 12/26/16 16:38 98.1 81 19 145/85 95 Room Air 12/26/16 16:27 83 18 97 Nasal Cannula 2.0 28 12/26/16 16:27 84 18 96 Nasal Cannula 2.0 28 Intake and Output 12/26/16 12/27/16 19:00 07:00 Output Total 800 ml 500 ml Balance -800 ml -500 ml Output Urine Total 800 ml 500 ml Laboratory Tests 12/27/16 05:35: White Blood Count 4.6L, Red Blood Count 3.78L, Hemoglobin 8.3L, Hematocrit 26.7L , Mean Corpuscular Volume 71L, Mean Corpuscular Hemoglobin 22.0L, Mean Corpuscular Hemoglobin Concent 31.2L, Red Cell Distribution Width 16.7H, Platelet Count 173, Mean Platelet Volume 8.8, Neutrophils (%) (Auto) 53.4, Lymphocytes (%) (Auto) 22.8, Monocytes (%) (Auto) 18.2H, Eosinophils (%) (Auto) 4.4H, Basophils (%) (Auto) 1.3, Prothrombin Time 11.7H, Prothromb Time International Ratio 1.1, Activated Partial Thromboplast Time 33, Sodium Level 140, Potassium Level 3.3L, Chloride Level 101, Carbon Dioxide Level 28, Anion Gap 11, Blood Urea Nitrogen 6L, Creatinine 0.9, Estimat Glomerular Filtration Rate > 60, Glucose Level 101, Calcium Level 8.8 Height (Feet): 6 Height (Inches): 0.00 Weight (Pounds): 185 General Appearance: no apparent distress EENT: PERRL/EOMI Neck: non-tender Cardiovascular: normal peripheral pulses Respiratory/Chest: chest wall non-tender Abdomen: normal bowel sounds Extremities: normal range of motion Edema: no edema noted Leg (L), no edema noted Leg (R), no edema noted Pedal (L) , no edema noted Pedal (R), no edema noted Generalized Neurologic: fundraising manager II-XII grossly normal Skin: warm/dry Gilberto Freedman Dec 27, 2016 14:21
--- NOTE | 2016-12-27 14:59 | General Progress Note ---
Assessment/Plan Problem List: (1) Hypernatremia ICD Codes: E87.0 - Hyperosmolality and hypernatremia SNOMED: 86777407 (2) Vomiting ICD Codes: R11.10 - Vomiting, unspecified SNOMED: 328387453 (3) Pancreatitis ICD Codes: K85.9 - Acute pancreatitis, unspecified SNOMED: 61662401 (4) Hiatal hernia ICD Codes: K44.9 - Diaphragmatic hernia without obstruction or gangrene SNOMED: 04373597 (5) Acid reflux ICD Codes: K21.9 - Gastro-esophageal reflux disease without esophagitis SNOMED: 240527449 (6) Lung nodule ICD Codes: R91.1 - Solitary pulmonary nodule SNOMED: 836149674 (7) LFTs abnormal ICD Codes: R79.89 - Other specified abnormal findings of blood chemistry SNOMED: 267379484 (8) HTN (hypertension) ICD Codes: I10 - Essential (primary) hypertension SNOMED: 00031787 (9) Acute kidney injury superimposed on chronic kidney disease ICD Codes: S37.009A - Unspecified injury of unspecified kidney, initial encounter; N18.9 - Chronic kidney disease, unspecified SNOMED: 92918207 (10) Aspiration pneumonia ICD Codes: J69.0 - Pneumonitis due to inhalation of food and vomit SNOMED: 481214969, 287984164 Qualifiers: Qualified Codes: J69.0 - Pneumonitis due to inhalation of food and vomit (11) Proteinuria ICD Codes: R80.9 - Proteinuria, unspecified SNOMED: 64701806, 872277114 Qualifiers: Qualified Codes: R80.9 - Proteinuria, unspecified (12) Anemia, chronic disease ICD Codes: D63.8 - Anemia in other chronic diseases classified elsewhere SNOMED: 453404326, 996543199 (13) Acute respiratory failure with hypoxia ICD Codes: J96.01 - Acute respiratory failure with hypoxia SNOMED: 03383874, 655270337 (14) Dehydration ICD Codes: E86.0 - Dehydration SNOMED: 73322733 (15) MAR (acute kidney injury) ICD Codes: N17.9 - Acute kidney failure, unspecified SNOMED: 49831181 (16) COPD (chronic obstructive pulmonary disease) ICD Codes: J44.9 - Chronic obstructive pulmonary disease, unspecified SNOMED: 36933955 (17) CHF (congestive heart failure) ICD Codes: I50.9 - Heart failure, unspecified SNOMED: 57846792 (18) Severe sepsis with septic shock ICD Codes: A41.9 - Sepsis, unspecified organism; R65.21 - Severe sepsis with septic shock SNOMED: 87883511 (19) HCAP (healthcare-associated pneumonia) ICD Codes: J18.9 - Pneumonia, unspecified organism SNOMED: 988710188 (20) Acute respiratory failure ICD Codes: J96.00 - Acute respiratory failure, unspecified whether with hypoxia or hypercapnia SNOMED: 85465225 (21) Schizophrenia ICD Codes: F20.9 - Schizophrenia, unspecified SNOMED: 61266355 (22) Gallstone ICD Codes: K80.20 - Calculus of gallbladder without cholecystitis without obstruction SNOMED: 293656398 (23) Anemia ICD Codes: D64.9 - Anemia, unspecified SNOMED: 353510900 (24) Osteoarthritis ICD Codes: M19.90 - Unspecified osteoarthritis, unspecified site SNOMED: 190548672 (25) Encephalopathy ICD Codes: G93.40 - Encephalopathy, unspecified SNOMED: 98763434, 008614224 (26) UTI (urinary tract infection) ICD Codes: N39.0 - Urinary tract infection, site not specified SNOMED: 19390305 (27) UTI (urinary tract infection) ICD Codes: N39.0 - Urinary tract infection, site not specified SNOMED: 67354731 (28) Elevated troponin ICD Codes: R74.8 - Abnormal levels of other serum enzymes SNOMED: 051978544, 217636421 (29) Pneumonia ICD Codes: J18.9 - Pneumonia, unspecified organism SNOMED: 574642481 Qualifiers: Qualified Codes: J18.1 - Lobar pneumonia, unspecified organism (30) Severe sepsis ICD Codes: A41.9 - Sepsis, unspecified organism; R65.20 - Severe sepsis without septic shock SNOMED: 18176821, 323472722 (31) Acute DVT (deep venous thrombosis) ICD Codes: I82.409 - Acute embolism and thrombosis of unspecified deep veins of unspecified lower extremity SNOMED: 588692460009715 Status: stable, progressing, tolerating diet Assessment/Plan o2 pulm tx abx cbc bmp am dc plan Subjective Constitutional: Reports: weakness Allergies: Coded Allergies: No Known Allergies (Unverified , 12/05/15) All Systems: reviewed and negative except above Subjective calm weak o2 nc Objective Last 24 Hour Vital Signs Date Time Temp Pulse Resp B/P Pulse Ox O2 Delivery O2 Flow Rate FiO2 12/27/16 12:00 97.4 74 20 114/84 94 Room Air 12/27/16 08:00 97.8 77 20 102/62 98 Nasal Cannula 2.0 12/27/16 07:13 98 Nasal Cannula 2.0 28 12/27/16 07:13 Nasal Cannula 2.0 28 12/27/16 04:00 98.2 81 19 116/81 95 Nasal Cannula 12/27/16 03:25 92 Room Air 12/27/16 00:00 97.8 77 19 105/65 97 Room Air 12/26/16 20:00 94.6 99 19 122/32 63 Nasal Cannula 1.0 12/26/16 19:21 92 Venturi Mask 15.0 50 12/26/16 19:21 Venturi Mask 15.0 50 12/26/16 16:38 98.1 81 19 145/85 95 Room Air 12/26/16 16:27 83 18 97 Nasal Cannula 2.0 28 12/26/16 16:27 84 18 96 Nasal Cannula 2.0 28 Intake and Output 12/26/16 12/27/16 19:00 07:00 Output Total 800 ml 500 ml Balance -800 ml -500 ml Output Urine Total 800 ml 500 ml Laboratory Tests 12/27/16 05:35: White Blood Count 4.6L, Red Blood Count 3.78L, Hemoglobin 8.3L, Hematocrit 26.7L , Mean Corpuscular Volume 71L, Mean Corpuscular Hemoglobin 22.0L, Mean Corpuscular Hemoglobin Concent 31.2L, Red Cell Distribution Width 16.7H, Platelet Count 173, Mean Platelet Volume 8.8, Neutrophils (%) (Auto) 53.4, Lymphocytes (%) (Auto) 22.8, Monocytes (%) (Auto) 18.2H, Eosinophils (%) (Auto) 4.4H, Basophils (%) (Auto) 1.3, Prothrombin Time 11.7H, Prothromb Time International Ratio 1.1, Activated Partial Thromboplast Time 33, Sodium Level 140, Potassium Level 3.3L, Chloride Level 101, Carbon Dioxide Level 28, Anion Gap 11, Blood Urea Nitrogen 6L, Creatinine 0.9, Estimat Glomerular Filtration Rate > 60, Glucose Level 101, Calcium Level 8.8 Height (Feet): 6 Height (Inches): 0.00 Weight (Pounds): 185 General Appearance: lethargic EENT: normal ENT inspection Neck: normal alignment Cardiovascular: normal peripheral pulses, normal rate, regular rhythm Respiratory/Chest: chest wall non-tender, lungs clear, normal breath sounds Abdomen: normal bowel sounds, non tender, soft Extremities: normal inspection Edema: no edema noted Arm (L), no edema noted Arm (R), no edema noted Leg (L), no edema noted Leg (R), no edema noted Pedal (L), no edema noted Pedal (R), no edema noted Generalized Neurologic: motor weakness Skin: normal pigmentation, warm/dry ALONDRA SINGH Dec 27, 2016 14:59
--- NOTE | 2016-12-27 15:14 | Infectious Diseases Prog Note ---
Assessment/Plan Problems: (1) HCAP (healthcare-associated pneumonia) Assessment & Plan: with Acinetobacter baumannii pansensitive, improving on levaquin , and vancomycin for 14 days. EOT 01/04/17 (2) Severe sepsis with septic shock Assessment & Plan: with leukocytosis, improving with levaquin , and vancomycin . blood culture is negative .continue antibiotics for 14 days, EOT 01/04/17 (3) CHF (congestive heart failure) Assessment & Plan: continue diuresis, cardiology is following (4) COPD (chronic obstructive pulmonary disease) Assessment & Plan: continue inhalers , with antibiotics, pulmonary is following (5) Acute respiratory failure with hypoxia Assessment & Plan: due to pneumonia, on BIPAP , pulmonary is following (6) MAR (acute kidney injury) Assessment & Plan: due to sepsis, continue gentle hydration, adjust meds as per creatinine clearance .consult nephrology (7) Elevated troponin Assessment & Plan: suspect ACS, management as per cardiology , continue tele monitor Subjective ROS Limited/Unobtainable: Yes Allergies: Coded Allergies: No Known Allergies (Unverified , 12/05/15) Subjective he is breathing well on room air, comfortable, and alert, no cough or SOB , not in distress, afebrile. Objective Vital Signs Last 24 Hour Vital Signs Date Time Temp Pulse Resp B/P Pulse Ox O2 Delivery O2 Flow Rate FiO2 12/27/16 12:00 97.4 74 20 114/84 94 Room Air 12/27/16 08:00 97.8 77 20 102/62 98 Nasal Cannula 2.0 12/27/16 07:13 98 Nasal Cannula 2.0 28 12/27/16 07:13 Nasal Cannula 2.0 28 12/27/16 04:00 98.2 81 19 116/81 95 Nasal Cannula 12/27/16 03:25 92 Room Air 12/27/16 00:00 97.8 77 19 105/65 97 Room Air 12/26/16 20:00 94.6 99 19 122/32 63 Nasal Cannula 1.0 12/26/16 19:21 92 Venturi Mask 15.0 50 12/26/16 19:21 Venturi Mask 15.0 50 12/26/16 16:38 98.1 81 19 145/85 95 Room Air 12/26/16 16:27 83 18 97 Nasal Cannula 2.0 28 12/26/16 16:27 84 18 96 Nasal Cannula 2.0 28 Height (Feet): 6 Height (Inches): 0.00 Weight (Pounds): 185 General Appearance: WD/WN, no acute distress HEENT: normocephalic, atraumatic, anicteric, mucous membranes moist Respiratory/Chest: chest wall non-tender, no respiratory distress, no accessory muscle use, decreased breath sounds, crackles/rales Cardiovascular: normal peripheral pulses, normal rate, regular rhythm, no gallop/murmur, no JVD Abdomen: normal bowel sounds, soft, non tender, no organomegaly, non distended , no mass Extremities: no cyanosis, no clubbing Skin: no rash, no lesions, no ulcers Laboratory Tests Test 12/27/16 05:35 White Blood Count 4.6 K/UL (4.8-10.8) L Red Blood Count 3.78 M/UL (4.70-6.10) L Hemoglobin 8.3 G/DL (14.2-18.0) L Hematocrit 26.7 % (42.0-52.0) L Mean Corpuscular Volume 71 FL (80-99) L Mean Corpuscular Hemoglobin 22.0 PG (27.0-31.0) L Mean Corpuscular Hemoglobin Concent 31.2 G/DL (32.0-36.0) L Red Cell Distribution Width 16.7 % (11.6-14.8) H Platelet Count 173 K/UL (150-450) Mean Platelet Volume 8.8 FL (6.5-10.1) Neutrophils (%) (Auto) 53.4 % (45.0-75.0) Lymphocytes (%) (Auto) 22.8 % (20.0-45.0) Monocytes (%) (Auto) 18.2 % (1.0-10.0) H Eosinophils (%) (Auto) 4.4 % (0.0-3.0) H Basophils (%) (Auto) 1.3 % (0.0-2.0) Prothrombin Time 11.7 SEC (9.30-11.50) H Prothromb Time International Ratio 1.1 (0.9-1.1) Activated Partial Thromboplast Time 33 SEC (23-33) Sodium Level 140 mEQ/L (135-145) Potassium Level 3.3 mEQ/L (3.4-4.9) L Chloride Level 101 mEQ/L (98-107) Carbon Dioxide Level 28 mEQ/L (20-30) Anion Gap 11 (5-15) Blood Urea Nitrogen 6 mg/dL (7-23) L Creatinine 0.9 mg/dL (0.7-1.2) Estimat Glomerular Filtration Rate > 60 mL/min (>60) Glucose Level 101 mg/dL (74-106) Calcium Level 8.8 mg/dL (8.6-10.2) Current Medications Medications (Trade) Dose Ordered Sig/Gloria Route PRN Reason Start Time Stop Time Status Last Admin Dose Admin Acetaminophen (Tylenol) 650 mg Q4H PRN ORAL Mild Pain (Pain Scale 1-3) 12/24/16 08:00 01/23/17 07:59 Acetaminophen (Tylenol) 650 mg Q4H PRN RECTAL fever > 100.5F 12/24/16 08:00 01/23/17 07:59 Albuterol/ Ipratropium 3 ml 3 ml Q4H PRN HHN Shortness of Breath 12/24/16 08:15 12/29/16 08:14 Bisacodyl (Dulcolax) 10 mg DAILYPRN PRN RECTAL Constipation 12/24/16 08:00 01/23/17 07:59 Cefoxitin Sodium/ Dextrose (Mefoxin/D5W) 55 ml @ 110 mls/hr ONCE IV 12/26/16 19:00 12/27/16 23:59 12/26/16 21:29 Dextrose/Sodium Chloride 1,000 ml @ 50 mls/hr Q20H IV 12/24/16 07:15 01/23/17 07:14 12/26/16 14:35 Enoxaparin Sodium (Lovenox) 80 mg EVERY 12 HOURS SUBQ 12/24/16 09:00 01/23/17 08:59 12/26/16 08:43 Levofloxacin 100 ml @ 100 mls/hr Q24H IVPB 12/24/16 17:00 12/31/16 16:59 12/26/16 21:23 Lorazepam (Ativan 2mg/ml 1ml) 0.5 mg Q4H PRN IV For Anxiety 12/24/16 08:00 12/31/16 07:59 12/25/16 20:10 Magnesium Hydroxide (Mom) 30 ml HSPRN PRN ORAL Constipation 12/24/16 21:00 01/23/17 20:59 Morphine Sulfate (Morphine Sulfate) 2 mg Q6H PRN IVP Moderate Pain (Pain Scale 4-6) 12/24/16 08:00 12/31/16 07:59 Nitroglycerin (Ntg) 0.4 mg Q5M PRN SL Prn Chest Pain 12/24/16 08:00 Ondansetron HCl (Zofran) 4 mg Q6H PRN IVP Nausea & Vomiting 12/24/16 08:00 01/23/17 07:59 Pantoprazole (Protonix) 40 mg DAILY IV 12/24/16 09:00 01/23/17 08:59 12/27/16 08:30 Promethazine HCl/ Codeine (Phenergan with Codeine) 5 ml Q4H PRN ORAL For Cough 12/24/16 08:00 01/23/17 07:59 Temazepam (Restoril) 15 mg HSPRN PRN ORAL Insomnia 12/24/16 21:00 12/31/16 20:59 Vancomycin HCl (Vanco rx to dose) 1 ea DAILY PRN MISC PER RX PROTOCOL 12/24/16 09:00 01/23/17 08:59 Vancomycin HCl/ Dextrose (Vancomycin/D5W) 275 ml @ 183.708 mls/hr Q12HR IVPB 12/24/16 09:00 12/29/16 08:59 12/27/16 08:32 Frankie Ratliff M.D. Dec 27, 2016 15:14
[2016-12-27] MEDS: D5 1/2NS 1,000 ML IV SCH ×2 (15:15→23:30)
[2016-12-27 16:08] VITALS: BP 116/80
--- NOTE | 2016-12-27 16:34 | Diagnostic Imaging Report ---
Indications: DYSPHAGIA Technique: Patient ingested multiple substances under the supervision of speech pathology. Video fluoroscopic recording performed. Total fluoroscopy time 77 seconds. Total dose area product cervical 65461 mGycm2 Comparison: none Findings: With thin liquid barium there is deep penetration and possible trace aspiration. There is also deep penetration/borderline aspiration of nectar thick liquid barium. Impression: Positive for deep penetration and possible trace aspiration of nectar thick and thin liquid barium Please refer to speech pathology report for more detailed analysis
--- NOTE | 2016-12-27 16:54 | Cardiac Electrophysiology PN ---
Assessment/Plan Assessment/Plan 1. Hypotension, resolved with IV fluids and antibiotics . Echocardiogram EF 60% . 2. Troponin leak 0.43 and 0.46. Levels flat and nonspecific. Nonverbal. ECG normal and EF 60% Hold off on aspirin for severe acute anemia and hold off beta uli for hypotension. 3. Increase WBC from 6.9 to >20. Normalized to 6.8 On IV abx per ID 4. Anemia with 3 gm drop in HB from 11 to 8. No obvious gi bleed. ? Dilutional 5. Acute RCFV DVT on Lovenox and Coumadin per Dr. Tesfaye. 6. Dysphagia. Failed video swallow eval.Ethics consult pending re PEG DW RN Subjective Subjective Nonverbal. RNs at bedside. Failed swallow eval.Ethics consult is pending Objective Last 24 Hour Vital Signs Date Time Temp Pulse Resp B/P Pulse Ox O2 Delivery O2 Flow Rate FiO2 12/27/16 16:08 97.6 76 20 116/80 94 Room Air 12/27/16 12:00 97.4 74 20 114/84 94 Room Air 12/27/16 08:00 97.8 77 20 102/62 98 Nasal Cannula 2.0 12/27/16 07:13 98 Nasal Cannula 2.0 28 12/27/16 07:13 Nasal Cannula 2.0 28 12/27/16 04:00 98.2 81 19 116/81 95 Nasal Cannula 12/27/16 03:25 92 Room Air 12/27/16 00:00 97.8 77 19 105/65 97 Room Air 12/26/16 20:00 94.6 99 19 122/32 63 Nasal Cannula 1.0 12/26/16 19:21 92 Venturi Mask 15.0 50 12/26/16 19:21 Venturi Mask 15.0 50 Intake and Output 12/26/16 12/27/16 19:00 07:00 Output Total 800 ml 500 ml Balance -800 ml -500 ml Output Urine Total 800 ml 500 ml Laboratory Tests Test 12/27/16 05:35 White Blood Count 4.6 K/UL (4.8-10.8) L Red Blood Count 3.78 M/UL (4.70-6.10) L Hemoglobin 8.3 G/DL (14.2-18.0) L Hematocrit 26.7 % (42.0-52.0) L Mean Corpuscular Volume 71 FL (80-99) L Mean Corpuscular Hemoglobin 22.0 PG (27.0-31.0) L Mean Corpuscular Hemoglobin Concent 31.2 G/DL (32.0-36.0) L Red Cell Distribution Width 16.7 % (11.6-14.8) H Platelet Count 173 K/UL (150-450) Mean Platelet Volume 8.8 FL (6.5-10.1) Neutrophils (%) (Auto) 53.4 % (45.0-75.0) Lymphocytes (%) (Auto) 22.8 % (20.0-45.0) Monocytes (%) (Auto) 18.2 % (1.0-10.0) H Eosinophils (%) (Auto) 4.4 % (0.0-3.0) H Basophils (%) (Auto) 1.3 % (0.0-2.0) Prothrombin Time 11.7 SEC (9.30-11.50) H Prothromb Time International Ratio 1.1 (0.9-1.1) Activated Partial Thromboplast Time 33 SEC (23-33) Sodium Level 140 mEQ/L (135-145) Potassium Level 3.3 mEQ/L (3.4-4.9) L Chloride Level 101 mEQ/L (98-107) Carbon Dioxide Level 28 mEQ/L (20-30) Anion Gap 11 (5-15) Blood Urea Nitrogen 6 mg/dL (7-23) L Creatinine 0.9 mg/dL (0.7-1.2) Estimat Glomerular Filtration Rate > 60 mL/min (>60) Glucose Level 101 mg/dL (74-106) Calcium Level 8.8 mg/dL (8.6-10.2) Objective HEAD AND NECK: No JVD. LUNGS: Coarse rhonchi. CARDIOVASCULAR: Regular S1 and S2 with no gallop or murmur. ABDOMEN: Soft. EXTREMITIES: No pitting edema, lower extremities of contraction in position. VOLODYMYR HOSKINS Dec 27, 2016 16:54
[2016-12-27] MEDS: cefOXitin Sod 1 GM in D5W 55 ML IV SCH (18:28)
--- NOTE | 2016-12-27 19:03 | Nephrology Progress Note ---
Objective Objective Last 24 Hour Vital Signs Date Time Temp Pulse Resp B/P Pulse Ox O2 Delivery O2 Flow Rate FiO2 12/27/16 16:08 97.6 76 20 116/80 94 Room Air 12/27/16 12:00 97.4 74 20 114/84 94 Room Air 12/27/16 08:00 97.8 77 20 102/62 98 Nasal Cannula 2.0 12/27/16 07:13 98 Nasal Cannula 2.0 28 12/27/16 07:13 Nasal Cannula 2.0 28 12/27/16 04:00 98.2 81 19 116/81 95 Nasal Cannula 12/27/16 03:25 92 Room Air 12/27/16 00:00 97.8 77 19 105/65 97 Room Air 12/26/16 20:00 94.6 99 19 122/32 63 Nasal Cannula 1.0 12/26/16 19:21 92 Venturi Mask 15.0 50 12/26/16 19:21 Venturi Mask 15.0 50 Intake and Output 12/26/16 12/27/16 19:00 07:00 Output Total 800 ml 500 ml Balance -800 ml -500 ml Output Urine Total 800 ml 500 ml Laboratory Tests 12/27/16 05:35: White Blood Count 4.6L, Red Blood Count 3.78L, Hemoglobin 8.3L, Hematocrit 26.7L , Mean Corpuscular Volume 71L, Mean Corpuscular Hemoglobin 22.0L, Mean Corpuscular Hemoglobin Concent 31.2L, Red Cell Distribution Width 16.7H, Platelet Count 173, Mean Platelet Volume 8.8, Neutrophils (%) (Auto) 53.4, Lymphocytes (%) (Auto) 22.8, Monocytes (%) (Auto) 18.2H, Eosinophils (%) (Auto) 4.4H, Basophils (%) (Auto) 1.3, Prothrombin Time 11.7H, Prothromb Time International Ratio 1.1, Activated Partial Thromboplast Time 33, Sodium Level 140, Potassium Level 3.3L, Chloride Level 101, Carbon Dioxide Level 28, Anion Gap 11, Blood Urea Nitrogen 6L, Creatinine 0.9, Estimat Glomerular Filtration Rate > 60, Glucose Level 101, Calcium Level 8.8 Height (Feet): 6 Height (Inches): 0.00 Weight (Pounds): 185 BRIGID OLIVERA Dec 27, 2016 19:03
--- NOTE | 2016-12-27 19:22 | Pulmonology Progress Note ---
Assessment/Plan Problems: (1) Severe sepsis (2) Pneumonia (3) Acute respiratory failure (4) Acute DVT (deep venous thrombosis) (5) MAR (acute kidney injury) (6) Anemia (7) Encephalopathy Assessment/Plan IV antibiotics check cultures swallow study noted, deep penetration with nectar check cultures tolerating feeding dvt prophylaxis Subjective ROS Limited/Unobtainable: No Constitutional: Reports: no symptoms Respiratory: Reports: no symptoms Allergies: Coded Allergies: No Known Allergies (Unverified , 12/05/15) Objective Last 24 Hour Vital Signs Date Time Temp Pulse Resp B/P Pulse Ox O2 Delivery O2 Flow Rate FiO2 12/27/16 16:08 97.6 76 20 116/80 94 Room Air 12/27/16 12:00 97.4 74 20 114/84 94 Room Air 12/27/16 08:00 97.8 77 20 102/62 98 Nasal Cannula 2.0 12/27/16 07:13 98 Nasal Cannula 2.0 28 12/27/16 07:13 Nasal Cannula 2.0 28 12/27/16 04:00 98.2 81 19 116/81 95 Nasal Cannula 12/27/16 03:25 92 Room Air 12/27/16 00:00 97.8 77 19 105/65 97 Room Air 12/26/16 20:00 94.6 99 19 122/32 63 Nasal Cannula 1.0 Intake and Output 12/26/16 12/27/16 19:00 07:00 Output Total 800 ml 500 ml Balance -800 ml -500 ml Output Urine Total 800 ml 500 ml Objective General Appearance: WD/WN, no apparent distress Lines, tubes and drains: peripheral HEENT: normocephalic, atraumatic Neck: non-tender, supple Respiratory/Chest: chest wall non-tender, rhonchi - bilaterally Cardiovascular/Chest: normal peripheral pulses, normal rate Abdomen: normal bowel sounds Genitourinary/Rectal: normal genital exam Extremities: normal range of motion Laboratory Tests 12/27/16 05:35: White Blood Count 4.6L, Red Blood Count 3.78L, Hemoglobin 8.3L, Hematocrit 26.7L , Mean Corpuscular Volume 71L, Mean Corpuscular Hemoglobin 22.0L, Mean Corpuscular Hemoglobin Concent 31.2L, Red Cell Distribution Width 16.7H, Platelet Count 173, Mean Platelet Volume 8.8, Neutrophils (%) (Auto) 53.4, Lymphocytes (%) (Auto) 22.8, Monocytes (%) (Auto) 18.2H, Eosinophils (%) (Auto) 4.4H, Basophils (%) (Auto) 1.3, Prothrombin Time 11.7H, Prothromb Time International Ratio 1.1, Activated Partial Thromboplast Time 33, Sodium Level 140, Potassium Level 3.3L, Chloride Level 101, Carbon Dioxide Level 28, Anion Gap 11, Blood Urea Nitrogen 6L, Creatinine 0.9, Estimat Glomerular Filtration Rate > 60, Glucose Level 101, Calcium Level 8.8 Current Medications Medications (Trade) Dose Ordered Sig/Gloria Route PRN Reason Start Time Stop Time Status Last Admin Dose Admin Acetaminophen (Tylenol) 650 mg Q4H PRN ORAL Mild Pain (Pain Scale 1-3) 12/24/16 08:00 01/23/17 07:59 Acetaminophen (Tylenol) 650 mg Q4H PRN RECTAL fever > 100.5F 12/24/16 08:00 01/23/17 07:59 Albuterol/ Ipratropium 3 ml 3 ml Q4H PRN HHN Shortness of Breath 12/24/16 08:15 12/29/16 08:14 Bisacodyl (Dulcolax) 10 mg DAILYPRN PRN RECTAL Constipation 12/24/16 08:00 01/23/17 07:59 Cefoxitin Sodium/ Dextrose (Mefoxin/D5W) 55 ml @ 110 mls/hr ONCE IV 12/26/16 19:00 12/27/16 23:59 12/27/16 18:28 Dextrose/Sodium Chloride 1,000 ml @ 50 mls/hr Q20H IV 12/24/16 07:15 01/23/17 07:14 12/26/16 14:35 Enoxaparin Sodium (Lovenox) 80 mg EVERY 12 HOURS SUBQ 12/24/16 09:00 01/23/17 08:59 12/26/16 08:43 Levofloxacin 100 ml @ 100 mls/hr Q24H IVPB 12/24/16 17:00 12/31/16 16:59 12/27/16 17:04 Lorazepam (Ativan 2mg/ml 1ml) 0.5 mg Q4H PRN IV For Anxiety 12/24/16 08:00 12/31/16 07:59 12/25/16 20:10 Magnesium Hydroxide (Mom) 30 ml HSPRN PRN ORAL Constipation 12/24/16 21:00 01/23/17 20:59 Morphine Sulfate (Morphine Sulfate) 2 mg Q6H PRN IVP Moderate Pain (Pain Scale 4-6) 12/24/16 08:00 12/31/16 07:59 Nitroglycerin (Ntg) 0.4 mg Q5M PRN SL Prn Chest Pain 12/24/16 08:00 Ondansetron HCl (Zofran) 4 mg Q6H PRN IVP Nausea & Vomiting 12/24/16 08:00 01/23/17 07:59 Pantoprazole (Protonix) 40 mg DAILY IV 12/24/16 09:00 01/23/17 08:59 12/27/16 08:30 Promethazine HCl/ Codeine (Phenergan with Codeine) 5 ml Q4H PRN ORAL For Cough 12/24/16 08:00 01/23/17 07:59 Temazepam (Restoril) 15 mg HSPRN PRN ORAL Insomnia 12/24/16 21:00 12/31/16 20:59 Vancomycin HCl (Vanco rx to dose) 1 ea DAILY PRN MISC PER RX PROTOCOL 12/24/16 09:00 01/23/17 08:59 Vancomycin HCl/ Dextrose (Vancomycin/D5W) 275 ml @ 183.708 mls/hr Q12HR IVPB 12/24/16 09:00 12/29/16 08:59 12/27/16 08:32 ALMA LINDO Dec 27, 2016 19:22
[2016-12-28] VITALS (12 sets, daily range): BP systolic 95–169; BP diastolic 57–88
[2016-12-28 07:21] LABS: BASOPHILS % (AUTO) 0.9 % (0.0-2.0); EOSINOPHILS % (AUTO) 5.9 % (0.0-3.0); LYMPHOCYTES % (AUTO) 26.1 % (20.0-45.0); MEAN CORPUSCULAR HEMOGLOBIN 21.6 PG (27.0-31.0); MEAN CORPUSCULAR HGB CONC 30.4 G/DL (32.0-36.0); MEAN CORPUSCULAR VOLUME 71 FL (80-99); MEAN PLATELET VOLUME 9.2 FL (6.5-10.1); MONOCYTES % (AUTO) 18.1 % (1.0-10.0); PLATELET COUNT 176 K/UL (150-450); RED BLOOD COUNT 3.84 M/UL (4.70-6.10); RED CELL DISTRIBUTION WIDTH 19.3 % (11.6-14.8); WHITE BLOOD COUNT 4.1 K/UL (4.8-10.8)
[2016-12-28 07:39] LABS: ANION GAP 13 (5-15); CALCIUM 8.9 mg/dL (8.6-10.2); CARBON DIOXIDE 26 mEQ/L (20-30); CHLORIDE 101 mEQ/L (98-107); CREATININE 0.9 mg/dL (0.7-1.2); GLOMERULAR FILTRATION RATE > 60 mL/min (>60); HEMOLYSIS 1; POTASSIUM 3.1 mEQ/L (3.4-4.9); SODIUM 140 mEQ/L (135-145)
[2016-12-28] MEDS: Pantoprazole Inj IV SCH (08:22)
[2016-12-28] MEDS: Vancomycin 750 MG in D5W 275 ML IVPB SCH ×2 (08:22→21:28)
[2016-12-28] MEDS: Enoxaparin 80mg Inj SUBQ SCH ×2 (08:23→21:36)
[2016-12-28] MEDS ORDERED: Propofol 10mg/ml 20ml IV ONE (09:00)
--- NOTE | 2016-12-28 09:23 | Pre-Procedure Note/Attestation ---
Pre-Procedure Note/Attestation Complete Prior to Procedure Planned Procedure: not applicable Procedure Narrative: egd/peg Indications for Procedure Pre-Operative Diagnosis: dysphagia Attestation I attest that I discussed the nature of the procedure; its benefits; risks and complications; and alternatives (and the risks and benefits of such alternatives ), prior to the procedure, with the patient (or the patient's legal medical collections representative). I attest that, if there was a reasonable possibility of needing a blood transfusion, the patient (or the patient's legal medical collections representative) was given the [facility] standardized written summary, pursuant to the [employer] [place] Blood Safety Act ([place] Health and Safety Code # 1645, as amended). I attest that I re-evaluated the patient just prior to the surgery and that there has been no change in the patient's H&P, except as documented below: FRITZ DELANEY Dec 28, 2016 09:23
--- NOTE | 2016-12-28 09:26 | GI Progress Note ---
Assessment/Plan Problems: (1) HTN (hypertension) ICD Codes: I10 - Essential (primary) hypertension SNOMED: 06223510 (2) Anemia ICD Codes: D64.9 - Anemia, unspecified SNOMED: 728395390 (3) Gallstone ICD Codes: K80.20 - Calculus of gallbladder without cholecystitis without obstruction SNOMED: 557282364 (4) Schizophrenia ICD Codes: F20.9 - Schizophrenia, unspecified SNOMED: 76558677 Assessment/Plan patient has failed swallow eval needs chronic enteral feeding no family to get consent bioethic consult approved the peg placement plan for today Subjective Gastrointestinal/Abdominal: Reports: poor appetite Objective Last 24 Hour Vital Signs Date Time Temp Pulse Resp B/P Pulse Ox O2 Delivery O2 Flow Rate FiO2 12/28/16 08:54 92 Room Air 21 12/28/16 08:54 Room Air 21 12/28/16 08:00 96.8 78 14 103/57 91 Room Air 12/28/16 04:00 98.1 77 18 95/63 12/28/16 00:00 97.5 88 19 112/68 12/27/16 19:30 Nasal Cannula 2.0 28 12/27/16 19:30 95 Room Air 21 12/27/16 16:08 97.6 76 20 116/80 94 Room Air 12/27/16 12:00 97.4 74 20 114/84 94 Room Air Intake and Output 12/27/16 12/28/16 19:00 07:00 Intake Total 650 ml 350 ml Output Total 800 ml 650 ml Balance -150 ml -300 ml Intake IV Total 650 ml 350 ml Output Urine Total 800 ml 650 ml Laboratory Tests Test 12/28/16 05:20 White Blood Count 4.1 K/UL (4.8-10.8) L Red Blood Count 3.84 M/UL (4.70-6.10) L Hemoglobin 8.3 G/DL (14.2-18.0) L Hematocrit 27.3 % (42.0-52.0) L Mean Corpuscular Volume 71 FL (80-99) L Mean Corpuscular Hemoglobin 21.6 PG (27.0-31.0) L Mean Corpuscular Hemoglobin Concent 30.4 G/DL (32.0-36.0) L Red Cell Distribution Width 19.3 % (11.6-14.8) H Platelet Count 176 K/UL (150-450) Mean Platelet Volume 9.2 FL (6.5-10.1) Neutrophils (%) (Auto) 49.0 % (45.0-75.0) Lymphocytes (%) (Auto) 26.1 % (20.0-45.0) Monocytes (%) (Auto) 18.1 % (1.0-10.0) H Eosinophils (%) (Auto) 5.9 % (0.0-3.0) H Basophils (%) (Auto) 0.9 % (0.0-2.0) Sodium Level 140 mEQ/L (135-145) Potassium Level 3.1 mEQ/L (3.4-4.9) L Chloride Level 101 mEQ/L (98-107) Carbon Dioxide Level 26 mEQ/L (20-30) Anion Gap 13 (5-15) Blood Urea Nitrogen 6 mg/dL (7-23) L Creatinine 0.9 mg/dL (0.7-1.2) Estimat Glomerular Filtration Rate > 60 mL/min (>60) Glucose Level 92 mg/dL (74-106) Calcium Level 8.9 mg/dL (8.6-10.2) Height (Feet): 6 Height (Inches): 0.00 Weight (Pounds): 185 General Appearance: no apparent distress Cardiovascular: normal rate Respiratory/Chest: decreased breath sounds Abdominal Exam: normal bowel sounds, non tender, soft Extremities: non-tender FRITZ DELANEY Dec 28, 2016 09:25
--- NOTE | 2016-12-28 09:40 | Endoscopy Procedure Note ---
Endoscopy Procedure Note Indication for Procedure: dysphagia Procedures Performed: EGD, PEG Operative Findings/Diagnosis: same Specimen: none Pt Tolerated Procedure Well: Yes Estimated Blood Loss: none Anesthesiologist: addison Anesthesia: MAC Implant(s) used?: No 50 yrs or older w/o bx or poly: Not Applicable 10yrs. F/U not recommended: Not Applicable FRITZ DELANEY Dec 28, 2016 09:40
--- NOTE | 2016-12-28 09:55 | Immediate Post-Op Evaluation ---
Immediate Post-Op Evalulation Immediate Post-Op Evalulation Procedure: PEG placement Date of Evaluation: Dec 28, 2016 Time of Evaluation: 09:50 IV Fluids: 200 Blood Pressure Systolic: 110 Blood Pressure Diastolic: 45 Pulse Rate: 84 Respiratory Rate: 14 O2 Sat by Pulse Oximetry: 97 Temperature (Fahrenheit): 97.4 Nausea: No Vomiting: No Complications none Patient Status: awake, reacts, patent Hydration Status: adequate Drug: vanc Given Within 1 Hr of Incision: Yes PILAR LOVE CRNA Dec 28, 2016 09:55
--- NOTE | 2016-12-28 09:58 | Anethesia Preoperative Eval ---
Anesthesia Pre-op PMH/ROS General Date of Evaluation: Dec 28, 2016 Time of Evaluation: 09:20 Anesthesiologist: roman ASA Score: ASA 4 Mallampati Score Class I : Soft palate, uvula, fauces, pillars visible Class II: Soft palate, uvula, fauces visible Class III: Soft palate, base of uvula visible Class IV: Only hard plate visible Mallampati Classification: Class III Surgeon: viraj Diagnosis: failure to thrive Surgical Procedure: PEG placement Anesthesia History: none Family History: no anesthesia problems Allergies: Coded Allergies: No Known Allergies (Unverified , 12/05/15) Medications: see eMAR Past Medical History Cardiovascular: Reports: HTN, other - hypotension/severe sepsis Pulmonary: Reports: other - Pneumonia/resp insufficiency Gastrointestinal/Genitourinary: Reports: GERD, other - dysphagia Neurologic/Psychiatric: Reports: other - schizo Endocrine: Denies: DM, hypothyroidism, other, steroids Hematology/Immune: Reports: anemia Musculoskeletal/Integumentary: Denies: DDD, DJD, OA, RA, edema, other PSxH Narrative: see chart Anesthesia Pre-op Phys. Exam Physician Exam Last Vital Signs Date Time Temp Pulse Resp B/P Pulse Ox O2 Delivery O2 Flow Rate FiO2 12/28/16 08:54 92 Room Air 21 12/28/16 08:00 96.8 78 14 103/57 12/27/16 19:30 2.0 Constitutional: NAD Neurologic: CN 2-12 intact Cardiovascular: RRR Respiratory: other - ronchi Gastrointestinal: S/NT/ND Airway Exam Mallampati Classification 3 Mallampati Score: Class III MO: limited Teeth: missing, broken, loose Dentures: no lower, no upper Anesthesia Pre-op A/P Labs Hematology Test 12/28/16 05:20 White Blood Count 4.1 K/UL (4.8-10.8) L Red Blood Count 3.84 M/UL (4.70-6.10) L Hemoglobin 8.3 G/DL (14.2-18.0) L Hematocrit 27.3 % (42.0-52.0) L Mean Corpuscular Volume 71 FL (80-99) L Mean Corpuscular Hemoglobin 21.6 PG (27.0-31.0) L Mean Corpuscular Hemoglobin Concent 30.4 G/DL (32.0-36.0) L Red Cell Distribution Width 19.3 % (11.6-14.8) H Platelet Count 176 K/UL (150-450) Mean Platelet Volume 9.2 FL (6.5-10.1) Neutrophils (%) (Auto) 49.0 % (45.0-75.0) Lymphocytes (%) (Auto) 26.1 % (20.0-45.0) Monocytes (%) (Auto) 18.1 % (1.0-10.0) H Eosinophils (%) (Auto) 5.9 % (0.0-3.0) H Basophils (%) (Auto) 0.9 % (0.0-2.0) Chemistry Test 12/28/16 05:20 Sodium Level 140 mEQ/L (135-145) Potassium Level 3.1 mEQ/L (3.4-4.9) L Chloride Level 101 mEQ/L (98-107) Carbon Dioxide Level 26 mEQ/L (20-30) Anion Gap 13 (5-15) Blood Urea Nitrogen 6 mg/dL (7-23) L Creatinine 0.9 mg/dL (0.7-1.2) Estimat Glomerular Filtration Rate > 60 mL/min (>60) Glucose Level 92 mg/dL (74-106) Calcium Level 8.9 mg/dL (8.6-10.2) Studies Pre-op Studies: EKG - SR Risk Assessment & Plan Plan: mac Status Change Before Surgery: No Pre-Antibiotics Drug: PILAR Phan CRNA Dec 28, 2016 09:58
--- NOTE | 2016-12-28 10:30 | 48 Hour Post Anesthesia Eval ---
Post Anesthesia Evaluation Procedure: PEG placement Date of Evaluation: Dec 28, 2016 Time of Evaluation: 10:29 Blood Pressure Systolic: 114 0: 70 Pulse Rate: 85 O2 Sat by Pulse Oximetry: 98 Airway: patent Nausea: No Vomiting: No Hydration Status: adequate Mental Status/LOC: patient returned to baseline Post-Anesthesia Complications: none Follow-up care needed: N/A PILAR LOVE CRNA Dec 28, 2016 10:30
--- NOTE | 2016-12-28 11:24 | Nephrology Progress Note ---
Assessment/Plan Problem List: (1) Aspiration pneumonia (2) Anemia, chronic disease (3) Dehydration (4) Acute kidney injury superimposed on chronic kidney disease (5) Hypokalemia Plan Replace K Monitor lytes Aspiration precaution AM labs Subjective ROS Limited/Unobtainable: Yes Subjective In bed, in no apparent distress, sitter at bedside Objective Objective Last 24 Hour Vital Signs Date Time Temp Pulse Resp B/P Pulse Ox O2 Delivery O2 Flow Rate FiO2 12/28/16 10:30 85 98 12/28/16 10:25 97.8 72 15 106/66 96 Room Air 12/28/16 10:00 76 14 106/61 97 Room Air 12/28/16 09:57 82 16 109/69 96 Room Air 12/28/16 09:55 81 15 101/64 95 Room Air 12/28/16 09:55 84 14 97 12/28/16 09:50 77 17 105/74 96 Room Air 12/28/16 09:45 97.4 84 14 110/75 97 Room Air 12/28/16 08:54 92 Room Air 21 12/28/16 08:54 Room Air 21 12/28/16 08:00 96.8 78 14 103/57 91 Room Air 12/28/16 04:00 98.1 77 18 95/63 12/28/16 00:00 97.5 88 19 112/68 12/27/16 19:30 Nasal Cannula 2.0 28 12/27/16 19:30 95 Room Air 21 12/27/16 16:08 97.6 76 20 116/80 94 Room Air 12/27/16 12:00 97.4 74 20 114/84 94 Room Air Intake and Output 12/27/16 12/28/16 19:00 07:00 Intake Total 650 ml 350 ml Output Total 800 ml 650 ml Balance -150 ml -300 ml Intake IV Total 650 ml 350 ml Output Urine Total 800 ml 650 ml Laboratory Tests 12/28/16 05:20: White Blood Count 4.1L, Red Blood Count 3.84L, Hemoglobin 8.3L, Hematocrit 27.3L , Mean Corpuscular Volume 71L, Mean Corpuscular Hemoglobin 21.6L, Mean Corpuscular Hemoglobin Concent 30.4L, Red Cell Distribution Width 19.3H, Platelet Count 176, Mean Platelet Volume 9.2, Neutrophils (%) (Auto) 49.0, Lymphocytes (%) (Auto) 26.1, Monocytes (%) (Auto) 18.1H, Eosinophils (%) (Auto) 5.9H, Basophils (%) (Auto) 0.9, Sodium Level 140, Potassium Level 3.1L, Chloride Level 101, Carbon Dioxide Level 26, Anion Gap 13, Blood Urea Nitrogen 6L, Creatinine 0.9, Estimat Glomerular Filtration Rate > 60, Glucose Level 92, Calcium Level 8.9 Height (Feet): 6 Height (Inches): 0.00 Weight (Pounds): 185 General Appearance: no apparent distress, confused EENT: normal ENT inspection Neck: normal inspection Cardiovascular: regular rhythm, no JVD Respiratory/Chest: normal breath sounds, no respiratory distress Abdomen: soft, no organomegaly, other - PEG Extremities: non-tender, no calf tenderness Neurologic: disoriented Celena French N.P. Dec 28, 2016 11:24
[2016-12-28] MEDS ORDERED: KCl 10% 40mEq/30ml liquid NG ONE (12:00)
--- NOTE | 2016-12-28 12:27 | Infectious Diseases Prog Note ---
Assessment/Plan Problems: (1) HCAP (healthcare-associated pneumonia) Assessment & Plan: with Acinetobacter baumannii pansensitive, improving on levaquin , and vancomycin for 14 days. EOT 01/04/17 (2) Severe sepsis with septic shock Assessment & Plan: with leukocytosis, improving with levaquin , and vancomycin . blood culture is negative .continue antibiotics for 14 days, EOT 01/04/17 (3) CHF (congestive heart failure) Assessment & Plan: continue diuresis, cardiology is following (4) COPD (chronic obstructive pulmonary disease) Assessment & Plan: continue inhalers , with antibiotics, pulmonary is following (5) Acute respiratory failure with hypoxia Assessment & Plan: due to pneumonia, on BIPAP , pulmonary is following (6) MAR (acute kidney injury) Assessment & Plan: due to sepsis, continue gentle hydration, adjust meds as per creatinine clearance .consult nephrology (7) Elevated troponin Assessment & Plan: suspect ACS, management as per cardiology , continue tele monitor Subjective ROS Limited/Unobtainable: Yes Allergies: Coded Allergies: No Known Allergies (Unverified , 12/05/15) Subjective he is breathing well on room air, comfortable, and alert, no cough or SOB , not in distress, afebrile. Objective Vital Signs Last 24 Hour Vital Signs Date Time Temp Pulse Resp B/P Pulse Ox O2 Delivery O2 Flow Rate FiO2 12/28/16 10:30 85 98 12/28/16 10:25 97.8 72 15 106/66 96 Room Air 12/28/16 10:00 76 14 106/61 97 Room Air 12/28/16 09:57 82 16 109/69 96 Room Air 12/28/16 09:55 81 15 101/64 95 Room Air 12/28/16 09:55 84 14 97 12/28/16 09:50 77 17 105/74 96 Room Air 12/28/16 09:45 97.4 84 14 110/75 97 Room Air 12/28/16 08:54 92 Room Air 21 12/28/16 08:54 Room Air 21 12/28/16 08:00 96.8 78 14 103/57 91 Room Air 12/28/16 04:00 98.1 77 18 95/63 12/28/16 00:00 97.5 88 19 112/68 12/27/16 19:30 Nasal Cannula 2.0 28 12/27/16 19:30 95 Room Air 21 12/27/16 16:08 97.6 76 20 116/80 94 Room Air Height (Feet): 6 Height (Inches): 0.00 Weight (Pounds): 185 General Appearance: WD/WN, no acute distress HEENT: normocephalic, atraumatic, anicteric, mucous membranes moist Respiratory/Chest: chest wall non-tender, lungs clear, normal breath sounds, no respiratory distress, no accessory muscle use Cardiovascular: normal peripheral pulses, normal rate, regular rhythm, no gallop/murmur Abdomen: normal bowel sounds, soft, non tender, no organomegaly, non distended , no mass Extremities: no cyanosis, no clubbing Skin: no rash Laboratory Tests Test 12/28/16 05:20 White Blood Count 4.1 K/UL (4.8-10.8) L Red Blood Count 3.84 M/UL (4.70-6.10) L Hemoglobin 8.3 G/DL (14.2-18.0) L Hematocrit 27.3 % (42.0-52.0) L Mean Corpuscular Volume 71 FL (80-99) L Mean Corpuscular Hemoglobin 21.6 PG (27.0-31.0) L Mean Corpuscular Hemoglobin Concent 30.4 G/DL (32.0-36.0) L Red Cell Distribution Width 19.3 % (11.6-14.8) H Platelet Count 176 K/UL (150-450) Mean Platelet Volume 9.2 FL (6.5-10.1) Neutrophils (%) (Auto) 49.0 % (45.0-75.0) Lymphocytes (%) (Auto) 26.1 % (20.0-45.0) Monocytes (%) (Auto) 18.1 % (1.0-10.0) H Eosinophils (%) (Auto) 5.9 % (0.0-3.0) H Basophils (%) (Auto) 0.9 % (0.0-2.0) Sodium Level 140 mEQ/L (135-145) Potassium Level 3.1 mEQ/L (3.4-4.9) L Chloride Level 101 mEQ/L (98-107) Carbon Dioxide Level 26 mEQ/L (20-30) Anion Gap 13 (5-15) Blood Urea Nitrogen 6 mg/dL (7-23) L Creatinine 0.9 mg/dL (0.7-1.2) Estimat Glomerular Filtration Rate > 60 mL/min (>60) Glucose Level 92 mg/dL (74-106) Calcium Level 8.9 mg/dL (8.6-10.2) Current Medications Medications (Trade) Dose Ordered Sig/Gloria Route PRN Reason Start Time Stop Time Status Last Admin Dose Admin Acetaminophen (Tylenol) 650 mg Q4H PRN ORAL Mild Pain (Pain Scale 1-3) 12/24/16 08:00 01/23/17 07:59 Acetaminophen (Tylenol) 650 mg Q4H PRN RECTAL fever > 100.5F 12/24/16 08:00 01/23/17 07:59 Albuterol/ Ipratropium (DuoNeb 0.5-3(2.5)mg/3ml) 3 ml Q4H PRN HHN Shortness of Breath 12/24/16 08:15 12/29/16 08:14 Bisacodyl (Dulcolax) 10 mg DAILYPRN PRN RECTAL Constipation 12/24/16 08:00 01/23/17 07:59 Dextrose/Sodium Chloride 1,000 ml @ 50 mls/hr Q20H IV 12/24/16 07:15 01/23/17 07:14 12/27/16 23:30 Enoxaparin Sodium (Lovenox) 80 mg EVERY 12 HOURS SUBQ 12/24/16 09:00 01/23/17 08:59 12/27/16 22:28 Levofloxacin 100 ml @ 100 mls/hr Q24H IVPB 12/24/16 17:00 12/31/16 16:59 12/27/16 17:04 Lorazepam (Ativan 2mg/ml 1ml) 0.5 mg Q4H PRN IV For Anxiety 12/24/16 08:00 12/31/16 07:59 12/25/16 20:10 Magnesium Hydroxide (Mom) 30 ml HSPRN PRN ORAL Constipation 12/24/16 21:00 01/23/17 20:59 Morphine Sulfate (Morphine Sulfate) 2 mg Q6H PRN IVP Moderate Pain (Pain Scale 4-6) 12/24/16 08:00 12/31/16 07:59 Nitroglycerin (Ntg) 0.4 mg Q5M PRN SL Prn Chest Pain 12/24/16 08:00 Ondansetron HCl (Zofran) 4 mg Q6H PRN IVP Nausea & Vomiting 12/24/16 08:00 01/23/17 07:59 Pantoprazole (Protonix) 40 mg DAILY IV 12/24/16 09:00 01/23/17 08:59 12/28/16 08:22 Potassium Chloride (KCl 10% 20 mEq oral solution) 20 meq DAILY NG 12/29/16 09:00 01/28/17 08:59 Promethazine HCl/ Codeine (Phenergan with Codeine) 5 ml Q4H PRN ORAL For Cough 12/24/16 08:00 01/23/17 07:59 Temazepam (Restoril) 15 mg HSPRN PRN ORAL Insomnia 12/24/16 21:00 12/31/16 20:59 Vancomycin HCl (Vanco rx to dose) 1 ea DAILY PRN MISC PER RX PROTOCOL 12/24/16 09:00 01/23/17 08:59 Vancomycin HCl/ Dextrose (Vancomycin/D5W) 275 ml @ 183.708 mls/hr Q12HR IVPB 12/24/16 09:00 12/29/16 08:59 12/28/16 08:22 Frankie Ratliff M.D. Dec 28, 2016 12:27
--- NOTE | 2016-12-28 15:30 | General Progress Note ---
Assessment/Plan Problem List: (1) Hypernatremia ICD Codes: E87.0 - Hyperosmolality and hypernatremia SNOMED: 43117437 (2) Vomiting ICD Codes: R11.10 - Vomiting, unspecified SNOMED: 212193860 (3) Pancreatitis ICD Codes: K85.9 - Acute pancreatitis, unspecified SNOMED: 88239796 (4) Hiatal hernia ICD Codes: K44.9 - Diaphragmatic hernia without obstruction or gangrene SNOMED: 66429343 (5) Acid reflux ICD Codes: K21.9 - Gastro-esophageal reflux disease without esophagitis SNOMED: 728257051 (6) Lung nodule ICD Codes: R91.1 - Solitary pulmonary nodule SNOMED: 247803748 (7) LFTs abnormal ICD Codes: R79.89 - Other specified abnormal findings of blood chemistry SNOMED: 728807031 (8) HTN (hypertension) ICD Codes: I10 - Essential (primary) hypertension SNOMED: 83281854 (9) Acute kidney injury superimposed on chronic kidney disease ICD Codes: S37.009A - Unspecified injury of unspecified kidney, initial encounter; N18.9 - Chronic kidney disease, unspecified SNOMED: 68457637 (10) Aspiration pneumonia ICD Codes: J69.0 - Pneumonitis due to inhalation of food and vomit SNOMED: 551070544, 057687674 Qualifiers: Qualified Codes: J69.0 - Pneumonitis due to inhalation of food and vomit (11) Proteinuria ICD Codes: R80.9 - Proteinuria, unspecified SNOMED: 68564068, 412595714 Qualifiers: Qualified Codes: R80.9 - Proteinuria, unspecified (12) Anemia, chronic disease ICD Codes: D63.8 - Anemia in other chronic diseases classified elsewhere SNOMED: 012331347, 423850541 (13) Acute respiratory failure with hypoxia ICD Codes: J96.01 - Acute respiratory failure with hypoxia SNOMED: 73060389, 859507589 (14) Dehydration ICD Codes: E86.0 - Dehydration SNOMED: 53555849 (15) MAR (acute kidney injury) ICD Codes: N17.9 - Acute kidney failure, unspecified SNOMED: 13484303 (16) COPD (chronic obstructive pulmonary disease) ICD Codes: J44.9 - Chronic obstructive pulmonary disease, unspecified SNOMED: 62582371 (17) CHF (congestive heart failure) ICD Codes: I50.9 - Heart failure, unspecified SNOMED: 54288913 (18) Severe sepsis with septic shock ICD Codes: A41.9 - Sepsis, unspecified organism; R65.21 - Severe sepsis with septic shock SNOMED: 26771075 (19) HCAP (healthcare-associated pneumonia) ICD Codes: J18.9 - Pneumonia, unspecified organism SNOMED: 198638180 (20) Acute respiratory failure ICD Codes: J96.00 - Acute respiratory failure, unspecified whether with hypoxia or hypercapnia SNOMED: 83723078 (21) Schizophrenia ICD Codes: F20.9 - Schizophrenia, unspecified SNOMED: 11127703 (22) Gallstone ICD Codes: K80.20 - Calculus of gallbladder without cholecystitis without obstruction SNOMED: 263604847 (23) Anemia ICD Codes: D64.9 - Anemia, unspecified SNOMED: 911002883 (24) Osteoarthritis ICD Codes: M19.90 - Unspecified osteoarthritis, unspecified site SNOMED: 850781795 (25) Encephalopathy ICD Codes: G93.40 - Encephalopathy, unspecified SNOMED: 92245951, 549748674 (26) UTI (urinary tract infection) ICD Codes: N39.0 - Urinary tract infection, site not specified SNOMED: 16221238 (27) UTI (urinary tract infection) ICD Codes: N39.0 - Urinary tract infection, site not specified SNOMED: 52130276 (28) Elevated troponin ICD Codes: R74.8 - Abnormal levels of other serum enzymes SNOMED: 892282480, 611049249 (29) Pneumonia ICD Codes: J18.9 - Pneumonia, unspecified organism SNOMED: 456407477 Qualifiers: Qualified Codes: J18.1 - Lobar pneumonia, unspecified organism (30) Severe sepsis ICD Codes: A41.9 - Sepsis, unspecified organism; R65.20 - Severe sepsis without septic shock SNOMED: 86579148, 116750809 (31) Acute DVT (deep venous thrombosis) ICD Codes: I82.409 - Acute embolism and thrombosis of unspecified deep veins of unspecified lower extremity SNOMED: 895042669424698 Status: stable, progressing, tolerating diet Assessment/Plan o2 pulm tx abx cbc bmp am dc plan Subjective Constitutional: Reports: weakness Allergies: Coded Allergies: No Known Allergies (Unverified , 12/05/15) All Systems: reviewed and negative except above Subjective calm weak o2 nc Objective Last 24 Hour Vital Signs Date Time Temp Pulse Resp B/P Pulse Ox O2 Delivery O2 Flow Rate FiO2 12/28/16 12:00 97.5 69 12 169/76 96 Room Air 12/28/16 10:30 85 98 12/28/16 10:25 97.8 72 15 106/66 96 Room Air 12/28/16 10:00 76 14 106/61 97 Room Air 12/28/16 09:57 82 16 109/69 96 Room Air 12/28/16 09:55 81 15 101/64 95 Room Air 12/28/16 09:55 84 14 97 12/28/16 09:50 77 17 105/74 96 Room Air 12/28/16 09:45 97.4 84 14 110/75 97 Room Air 12/28/16 08:54 92 Room Air 21 12/28/16 08:54 Room Air 21 12/28/16 08:00 96.8 78 14 103/57 91 Room Air 12/28/16 04:00 98.1 77 18 95/63 12/28/16 00:00 97.5 88 19 112/68 12/27/16 19:30 Nasal Cannula 2.0 28 12/27/16 19:30 95 Room Air 21 12/27/16 16:08 97.6 76 20 116/80 94 Room Air Intake and Output 12/27/16 12/28/16 19:00 07:00 Intake Total 650 ml 400 ml Output Total 800 ml 650 ml Balance -150 ml -250 ml Intake IV Total 650 ml 400 ml Output Urine Total 800 ml 650 ml Laboratory Tests 12/28/16 05:20: White Blood Count 4.1L, Red Blood Count 3.84L, Hemoglobin 8.3L, Hematocrit 27.3L , Mean Corpuscular Volume 71L, Mean Corpuscular Hemoglobin 21.6L, Mean Corpuscular Hemoglobin Concent 30.4L, Red Cell Distribution Width 19.3H, Platelet Count 176, Mean Platelet Volume 9.2, Neutrophils (%) (Auto) 49.0, Lymphocytes (%) (Auto) 26.1, Monocytes (%) (Auto) 18.1H, Eosinophils (%) (Auto) 5.9H, Basophils (%) (Auto) 0.9, Sodium Level 140, Potassium Level 3.1L, Chloride Level 101, Carbon Dioxide Level 26, Anion Gap 13, Blood Urea Nitrogen 6L, Creatinine 0.9, Estimat Glomerular Filtration Rate > 60, Glucose Level 92, Calcium Level 8.9 Height (Feet): 6 Height (Inches): 0.00 Weight (Pounds): 185 General Appearance: lethargic EENT: normal ENT inspection Neck: normal alignment Cardiovascular: normal peripheral pulses, normal rate, regular rhythm Respiratory/Chest: chest wall non-tender, lungs clear, normal breath sounds Abdomen: normal bowel sounds, non tender, soft Extremities: normal inspection Edema: no edema noted Arm (L), no edema noted Arm (R), no edema noted Leg (L), no edema noted Leg (R), no edema noted Pedal (L), no edema noted Pedal (R), no edema noted Generalized Neurologic: responsive, motor weakness Skin: normal pigmentation, warm/dry ALONDRA SINGH Dec 28, 2016 15:30
--- NOTE | 2016-12-28 16:24 | Cardiac Electrophysiology PN ---
Assessment/Plan Assessment/Plan 1. Hypotension, resolved with IV fluids and antibiotics . EF 60%. 2. Troponin leak 0.43 and 0.46. Levels flat and nonspecific. Nonverbal. ECG normal and EF 60% Off aspirin for severe anemia and hold off beta uli for hypotension. 3. Increase WBC from 6.9 to >20. Normalized to 6.8 On IV abx per ID 4. Anemia with 3 gm drop in HB from 11 to 8. No obvious gi bleed. 5. Acute RCFV DVT on Lovenox and Coumadin per Dr. Tesfaye. 6. Dysphagia.S/P PEG today DW RN Subjective Subjective Nonverbal.Sitter at bedside. Had PEG placement today. Objective Last 24 Hour Vital Signs Date Time Temp Pulse Resp B/P Pulse Ox O2 Delivery O2 Flow Rate FiO2 12/28/16 16:01 97.3 81 17 133/88 95 Room Air 12/28/16 12:00 97.5 69 12 169/76 96 Room Air 12/28/16 10:30 85 98 12/28/16 10:25 97.8 72 15 106/66 96 Room Air 12/28/16 10:00 76 14 106/61 97 Room Air 12/28/16 09:57 82 16 109/69 96 Room Air 12/28/16 09:55 81 15 101/64 95 Room Air 12/28/16 09:55 84 14 97 12/28/16 09:50 77 17 105/74 96 Room Air 12/28/16 09:45 97.4 84 14 110/75 97 Room Air 12/28/16 08:54 92 Room Air 21 12/28/16 08:54 Room Air 21 12/28/16 08:00 96.8 78 14 103/57 91 Room Air 12/28/16 04:00 98.1 77 18 95/63 12/28/16 00:00 97.5 88 19 112/68 12/27/16 19:30 Nasal Cannula 2.0 28 12/27/16 19:30 95 Room Air 21 Intake and Output 12/27/16 12/28/16 19:00 07:00 Intake Total 650 ml 400 ml Output Total 800 ml 650 ml Balance -150 ml -250 ml Intake IV Total 650 ml 400 ml Output Urine Total 800 ml 650 ml Laboratory Tests Test 12/28/16 05:20 White Blood Count 4.1 K/UL (4.8-10.8) L Red Blood Count 3.84 M/UL (4.70-6.10) L Hemoglobin 8.3 G/DL (14.2-18.0) L Hematocrit 27.3 % (42.0-52.0) L Mean Corpuscular Volume 71 FL (80-99) L Mean Corpuscular Hemoglobin 21.6 PG (27.0-31.0) L Mean Corpuscular Hemoglobin Concent 30.4 G/DL (32.0-36.0) L Red Cell Distribution Width 19.3 % (11.6-14.8) H Platelet Count 176 K/UL (150-450) Mean Platelet Volume 9.2 FL (6.5-10.1) Neutrophils (%) (Auto) 49.0 % (45.0-75.0) Lymphocytes (%) (Auto) 26.1 % (20.0-45.0) Monocytes (%) (Auto) 18.1 % (1.0-10.0) H Eosinophils (%) (Auto) 5.9 % (0.0-3.0) H Basophils (%) (Auto) 0.9 % (0.0-2.0) Sodium Level 140 mEQ/L (135-145) Potassium Level 3.1 mEQ/L (3.4-4.9) L Chloride Level 101 mEQ/L (98-107) Carbon Dioxide Level 26 mEQ/L (20-30) Anion Gap 13 (5-15) Blood Urea Nitrogen 6 mg/dL (7-23) L Creatinine 0.9 mg/dL (0.7-1.2) Estimat Glomerular Filtration Rate > 60 mL/min (>60) Glucose Level 92 mg/dL (74-106) Calcium Level 8.9 mg/dL (8.6-10.2) Objective HEAD AND NECK: No JVD. LUNGS: Coarse rhonchi. CARDIOVASCULAR: Regular S1 and S2 with no gallop or murmur. ABDOMEN: Soft.S/P PEG EXTREMITIES: No pitting edema, lower extremities of contraction in position. VOLODYMYR HOSKINS Dec 28, 2016 16:24
--- NOTE | 2016-12-28 16:47 | General Progress Note ---
Assessment/Plan Assessment/Plan ASSESSMENT: 1. Right lower extremity deep venous thrombosis. Has a Right common femoral clot. On lovenox. Unable to swallow PO meds 2. Anemia 2/2 hemodilution 3. Hematuria- better now 4. Anemia secondary to iron deficiency 5. Decrease in hemoglobin and hematocrit, rule out gastrointestinal bleed. 6. Leukocytosis has resolved d/t abx treatment. 7. Thrombocytopenia secondary to hemodilution as well- has improved, counts WNL 8. Elevated blood sugar. 9. Elevated troponin, has been seen by Cardiology service. 10. Dysphagia- s/p PEG insertion. 11. Hypoxia. RECOMMENDATIONS: - Monitor counts. - Continue lovenox for DVT. - Appreciate Cardiology and Pulmonary recs - GI prophylaxis with PPI. - Enteric feeding- PEG tube. - Antibiotics as needed. - Appreciate pulm/cc recs - Imaging has been reviewed. - Pain control. - Appreciate consultation!! Subjective ROS Limited/Unobtainable: Yes Constitutional: Reports: no symptoms HEENT: Reports: no symptoms Cardiovascular: Reports: no symptoms Respiratory: Reports: no symptoms Gastrointestinal/Abdominal: Reports: no symptoms Genitourinary: Reports: no symptoms Neurologic/Psychiatric: Reports: no symptoms Endocrine: Reports: no symptoms Hematologic/Lymphatic: Reports: anemia Allergies: Coded Allergies: No Known Allergies (Unverified , 12/05/15) Subjective NAD, remains confused, nonverbal, s/p PEG insertion Objective Last 24 Hour Vital Signs Date Time Temp Pulse Resp B/P Pulse Ox O2 Delivery O2 Flow Rate FiO2 12/28/16 16:01 97.3 81 17 133/88 95 Room Air 12/28/16 12:00 97.5 69 12 169/76 96 Room Air 12/28/16 10:30 85 98 12/28/16 10:25 97.8 72 15 106/66 96 Room Air 12/28/16 10:00 76 14 106/61 97 Room Air 12/28/16 09:57 82 16 109/69 96 Room Air 12/28/16 09:55 81 15 101/64 95 Room Air 12/28/16 09:55 84 14 97 12/28/16 09:50 77 17 105/74 96 Room Air 12/28/16 09:45 97.4 84 14 110/75 97 Room Air 12/28/16 08:54 92 Room Air 21 12/28/16 08:54 Room Air 21 12/28/16 08:00 96.8 78 14 103/57 91 Room Air 12/28/16 04:00 98.1 77 18 95/63 12/28/16 00:00 97.5 88 19 112/68 12/27/16 19:30 Nasal Cannula 2.0 28 12/27/16 19:30 95 Room Air 21 Intake and Output 12/27/16 12/28/16 18:59 06:59 Intake Total 650 ml 350 ml Output Total 800 ml 650 ml Balance -150 ml -300 ml Intake IV Total 650 ml 350 ml Output Urine Total 800 ml 650 ml Laboratory Tests 12/28/16 05:20: White Blood Count 4.1L, Red Blood Count 3.84L, Hemoglobin 8.3L, Hematocrit 27.3L , Mean Corpuscular Volume 71L, Mean Corpuscular Hemoglobin 21.6L, Mean Corpuscular Hemoglobin Concent 30.4L, Red Cell Distribution Width 19.3H, Platelet Count 176, Mean Platelet Volume 9.2, Neutrophils (%) (Auto) 49.0, Lymphocytes (%) (Auto) 26.1, Monocytes (%) (Auto) 18.1H, Eosinophils (%) (Auto) 5.9H, Basophils (%) (Auto) 0.9, Sodium Level 140, Potassium Level 3.1L, Chloride Level 101, Carbon Dioxide Level 26, Anion Gap 13, Blood Urea Nitrogen 6L, Creatinine 0.9, Estimat Glomerular Filtration Rate > 60, Glucose Level 92, Calcium Level 8.9 Height (Feet): 6 Height (Inches): 0.00 Weight (Pounds): 185 General Appearance: no apparent distress EENT: normal ENT inspection Neck: non-tender Cardiovascular: normal peripheral pulses Respiratory/Chest: chest wall non-tender Abdomen: normal bowel sounds Edema: no edema noted Leg (L), no edema noted Leg (R), no edema noted Pedal (L) , no edema noted Pedal (R), no edema noted Generalized Neurologic: disoriented Skin: warm/dry Gilberto Freedman Dec 28, 2016 16:47
--- NOTE | 2016-12-28 16:49 | Procedure Note ---
DATE OF PROCEDURE: 12/28/2016 SURGEON: Jesús Dinh M.D. PROCEDURE: Upper endoscopy with PEG placement. ANESTHESIA: Per VICE PRESIDENT [employer]ATIONS, Marguerite Tardeidra. INSTRUMENT: Olympus adult flexible upper endoscope. INDICATION: Dysphagia. REASON FOR PROCEDURE: The procedure, risks, benefits, and possible consequences, including hemorrhage, aspiration, perforation and infection, and alternative treatments, were explained to the patient/legal guardian by Dr. Jesús Dinh and the patient/legal guardian understood and accepted these risks. DESCRIPTION OF PROCEDURE: After informed consent was obtained and the patient was adequately sedated, first Olympus upper endoscope was advanced from the mouth into the second portion of the duodenum and retroflexion was performed in the stomach. Then under endoscopic guidance and under sterile condition, a 20-Dutch pull type of G-tube was successfully placed in the epigastric area. The distance from the tip of the tube to skin was less than 3 cm in size. The patient tolerated the procedure well without any complication. SUMMARY OF FINDINGS: Status post successful percutaneous endoscopic gastrostomy placement. RECOMMENDATIONS: 1. Abdominal binder. 2. Elevate the head of the bed at all times. 3. G-tube flush. 4. G-tube care. 5. Start tube feeding later today. I want to thank, Dr. Johan Rangel, for this kind referral. Jesús Dinh M.D. DR: ROD JOB#: [id number] CC: Johan Rangel D.O.
[2016-12-28] MEDS: Morphine Sulfate 2mg/ml Inj IVP PRN (21:29)
--- NOTE | 2016-12-28 21:48 | Pulmonology Progress Note ---
Assessment/Plan Problems: (1) Severe sepsis (2) Pneumonia (3) Acute respiratory failure (4) Acute DVT (deep venous thrombosis) (5) MAR (acute kidney injury) (6) Anemia (7) Encephalopathy Assessment/Plan IV antibiotics check cultures swallow study noted, deep penetration with nectar check cultures tolerating feeding dvt prophylaxis all notes and labs reviewed Subjective ROS Limited/Unobtainable: No Constitutional: Reports: no symptoms HEENT: Repors: no symptoms Allergies: Coded Allergies: No Known Allergies (Unverified , 12/05/15) Objective Last 24 Hour Vital Signs Date Time Temp Pulse Resp B/P Pulse Ox O2 Delivery O2 Flow Rate FiO2 12/28/16 20:00 98.1 85 18 131/60 94 Room Air 12/28/16 19:30 95 Room Air 12/28/16 19:30 Room Air 12/28/16 16:01 97.3 81 17 133/88 95 Room Air 12/28/16 12:00 97.5 69 12 169/76 96 Room Air 12/28/16 10:30 85 98 12/28/16 10:25 97.8 72 15 106/66 96 Room Air 12/28/16 10:00 76 14 106/61 97 Room Air 12/28/16 09:57 82 16 109/69 96 Room Air 12/28/16 09:55 81 15 101/64 95 Room Air 12/28/16 09:55 84 14 97 12/28/16 09:50 77 17 105/74 96 Room Air 12/28/16 09:45 97.4 84 14 110/75 97 Room Air 12/28/16 08:54 92 Room Air 12/28/16 08:54 Room Air 12/28/16 08:00 96.8 78 14 103/57 91 Room Air 12/28/16 04:00 98.1 77 18 95/63 12/28/16 00:00 97.5 88 19 112/68 Intake and Output 12/27/16 12/28/16 19:00 07:00 Intake Total 650 ml 400 ml Output Total 800 ml 650 ml Balance -150 ml -250 ml Intake IV Total 650 ml 400 ml Output Urine Total 800 ml 650 ml Objective General Appearance: WD/WN, no apparent distress Lines, tubes and drains: peripheral HEENT: normocephalic, atraumatic Neck: non-tender, supple Respiratory/Chest: chest wall non-tender, rhonchi - bilaterally Cardiovascular/Chest: normal peripheral pulses, normal rate Abdomen: normal bowel sounds Genitourinary/Rectal: normal genital exam Extremities: normal range of motion Laboratory Tests 12/28/16 05:20: White Blood Count 4.1L, Red Blood Count 3.84L, Hemoglobin 8.3L, Hematocrit 27.3L , Mean Corpuscular Volume 71L, Mean Corpuscular Hemoglobin 21.6L, Mean Corpuscular Hemoglobin Concent 30.4L, Red Cell Distribution Width 19.3H, Platelet Count 176, Mean Platelet Volume 9.2, Neutrophils (%) (Auto) 49.0, Lymphocytes (%) (Auto) 26.1, Monocytes (%) (Auto) 18.1H, Eosinophils (%) (Auto) 5.9H, Basophils (%) (Auto) 0.9, Sodium Level 140, Potassium Level 3.1L, Chloride Level 101, Carbon Dioxide Level 26, Anion Gap 13, Blood Urea Nitrogen 6L, Creatinine 0.9, Estimat Glomerular Filtration Rate > 60, Glucose Level 92, Calcium Level 8.9 Current Medications Medications (Trade) Dose Ordered Sig/Gloria Route PRN Reason Start Time Stop Time Status Last Admin Dose Admin Acetaminophen (Tylenol) 650 mg Q4H PRN ORAL Mild Pain (Pain Scale 1-3) 12/24/16 08:00 01/23/17 07:59 Acetaminophen (Tylenol) 650 mg Q4H PRN RECTAL fever > 100.5F 12/24/16 08:00 01/23/17 07:59 Albuterol/ Ipratropium (DuoNeb 0.5-3(2.5)mg/3ml) 3 ml Q4H PRN HHN Shortness of Breath 12/24/16 08:15 12/29/16 08:14 Bisacodyl (Dulcolax) 10 mg DAILYPRN PRN RECTAL Constipation 12/24/16 08:00 01/23/17 07:59 Dextrose/Sodium Chloride 1,000 ml @ 50 mls/hr Q20H IV 12/24/16 07:15 01/23/17 07:14 12/27/16 23:30 Enoxaparin Sodium (Lovenox) 80 mg EVERY 12 HOURS SUBQ 12/24/16 09:00 01/23/17 08:59 12/28/16 21:36 Levofloxacin 100 ml @ 100 mls/hr Q24H IVPB 12/24/16 17:00 12/31/16 16:59 12/28/16 17:43 Lorazepam (Ativan 2mg/ml 1ml) 0.5 mg Q4H PRN IV For Anxiety 12/24/16 08:00 12/31/16 07:59 12/25/16 20:10 Magnesium Hydroxide (Mom) 30 ml HSPRN PRN ORAL Constipation 12/24/16 21:00 01/23/17 20:59 Morphine Sulfate (Morphine Sulfate) 2 mg Q6H PRN IVP Moderate Pain (Pain Scale 4-6) 12/24/16 08:00 12/31/16 07:59 12/28/16 21:29 Nitroglycerin (Ntg) 0.4 mg Q5M PRN SL Prn Chest Pain 12/24/16 08:00 Ondansetron HCl (Zofran) 4 mg Q6H PRN IVP Nausea & Vomiting 12/24/16 08:00 01/23/17 07:59 Pantoprazole (Protonix) 40 mg DAILY IV 12/24/16 09:00 01/23/17 08:59 12/28/16 08:22 Potassium Chloride (KCl 10% 20 mEq oral solution) 20 meq DAILY NG 12/29/16 09:00 01/28/17 08:59 Promethazine HCl/ Codeine (Phenergan with Codeine) 5 ml Q4H PRN ORAL For Cough 12/24/16 08:00 01/23/17 07:59 Temazepam (Restoril) 15 mg HSPRN PRN ORAL Insomnia 12/24/16 21:00 12/31/16 20:59 Vancomycin HCl (Vanco rx to dose) 1 ea DAILY PRN MISC PER RX PROTOCOL 12/24/16 09:00 01/23/17 08:59 Vancomycin HCl/ Dextrose (Vancomycin/D5W) 275 ml @ 183.708 mls/hr Q12HR IVPB 12/24/16 09:00 01/02/17 08:59 12/28/16 21:28 ALMA LINDO Dec 28, 2016 21:48
[2016-12-29] VITALS: BP 116/72
[2016-12-29 04:00] VITALS: BP 133/75
[2016-12-29] MEDS: D5 1/2NS 1,000 ML IV SCH (04:16)
[2016-12-29 07:19] LABS: EOSINOPHILS % (AUTO) 6.2 % (0.0-3.0); LYMPHOCYTES % (AUTO) 23.4 % (20.0-45.0); MEAN CORPUSCULAR HEMOGLOBIN 21.7 PG (27.0-31.0); MEAN CORPUSCULAR HGB CONC 30.2 G/DL (32.0-36.0); MEAN CORPUSCULAR VOLUME 72 FL (80-99); MEAN PLATELET VOLUME 10.5 FL (6.5-10.1); MONOCYTES % (AUTO) 11.3 % (1.0-10.0); NEUTROPHILS % (AUTO) 58.2 % (45.0-75.0); PLATELET COUNT 209 K/UL (150-450); RED BLOOD COUNT 3.83 M/UL (4.70-6.10); RED CELL DISTRIBUTION WIDTH 20.9 % (11.6-14.8); WHITE BLOOD COUNT 5.5 K/UL (4.8-10.8)
[2016-12-29 07:51] LABS: ANION GAP 15 (5-15); CALCIUM 8.9 mg/dL (8.6-10.2); CARBON DIOXIDE 22 mEQ/L (20-30); CHLORIDE 100 mEQ/L (98-107); GLOMERULAR FILTRATION RATE > 60 mL/min (>60); HEMOLYSIS 9; POTASSIUM 3.4 mEQ/L (3.4-4.9); SODIUM 137 mEQ/L (135-145)
[2016-12-29 08:00] VITALS: BP 137/84
[2016-12-29] MEDS: Vancomycin 750 MG in D5W 275 ML IVPB SCH ×2 (09:14→21:14)
[2016-12-29] MEDS: KCl 10% 20 mEq/15ml liquid NG SCH (09:14)
[2016-12-29] MEDS: Pantoprazole Inj IV SCH (09:17)
[2016-12-29] MEDS: Enoxaparin 80mg Inj SUBQ SCH ×2 (09:25→21:22)
[2016-12-29] MEDS ORDERED: Tubing IV Secondary IV ONE (09:53)
[2016-12-29] MEDS ORDERED: D5 1/2NS 1000ml IV ONE (09:53)
--- NOTE | 2016-12-29 11:21 | GI Progress Note ---
Assessment/Plan Problems: (1) Schizophrenia ICD Codes: F20.9 - Schizophrenia, unspecified SNOMED: 53607834 (2) Anemia ICD Codes: D64.9 - Anemia, unspecified SNOMED: 172990590 (3) Severe sepsis ICD Codes: A41.9 - Sepsis, unspecified organism; R65.20 - Severe sepsis without septic shock SNOMED: 03690533, 609393431 (4) Hiatal hernia ICD Codes: K44.9 - Diaphragmatic hernia without obstruction or gangrene SNOMED: 86192198 (5) Hypernatremia ICD Codes: E87.0 - Hyperosmolality and hypernatremia SNOMED: 21151175 (6) Encounter for PEG (percutaneous endoscopic gastrostomy) ICD Codes: Z43.1 - Encounter for attention to gastrostomy SNOMED: 580959529, 425458222 Status: stable Status Narrative Discussed with Dr. Dinh. Assessment/Plan SUMMARY OF FINDINGS: Status post successful percutaneous endoscopic gastrostomy placement. RECOMMENDATIONS: ok for DC per GI standpoint 1. Abdominal binder. 2. Elevate the head of the bed at all times. 3. G-tube flush. 4. G-tube care. 5. GTF's, tolerating resume lovenox cont ppi iron deficiency >> cont venofer fu labs Subjective Subjective limited, AMS Objective Last 24 Hour Vital Signs Date Time Temp Pulse Resp B/P Pulse Ox O2 Delivery O2 Flow Rate FiO2 12/29/16 08:00 96.6 86 19 137/84 96 Room Air 12/29/16 07:29 Room Air 12/29/16 07:29 95 Room Air 12/29/16 04:00 98.2 82 18 133/75 94 Room Air 12/29/16 00:00 98.4 87 18 116/72 94 Room Air 12/28/16 21:59 97.3 12/28/16 20:00 98.1 85 18 131/60 94 Room Air 12/28/16 19:30 95 Room Air 21 12/28/16 19:30 Room Air 12/28/16 16:01 97.3 81 17 133/88 95 Room Air 12/28/16 12:00 97.5 69 12 169/76 96 Room Air Intake and Output 12/28/16 12/29/16 19:00 07:00 Intake Total 450 ml 1135 ml Output Total 625 ml 550 ml Balance -175 ml 585 ml Intake Free Water 250 ml IV Total 450 ml 525 ml Tube Feeding 360 ml Output Urine Total 625 ml 550 ml Laboratory Tests Test 12/29/16 05:45 White Blood Count 5.5 K/UL (4.8-10.8) Red Blood Count 3.83 M/UL (4.70-6.10) L Hemoglobin 8.3 G/DL (14.2-18.0) L Hematocrit 27.6 % (42.0-52.0) L Mean Corpuscular Volume 72 FL (80-99) L Mean Corpuscular Hemoglobin 21.7 PG (27.0-31.0) L Mean Corpuscular Hemoglobin Concent 30.2 G/DL (32.0-36.0) L Red Cell Distribution Width 20.9 % (11.6-14.8) H Platelet Count 209 K/UL (150-450) Mean Platelet Volume 10.5 FL (6.5-10.1) H Neutrophils (%) (Auto) 58.2 % (45.0-75.0) Lymphocytes (%) (Auto) 23.4 % (20.0-45.0) Monocytes (%) (Auto) 11.3 % (1.0-10.0) H Eosinophils (%) (Auto) 6.2 % (0.0-3.0) H Basophils (%) (Auto) 1.0 % (0.0-2.0) Sodium Level 137 mEQ/L (135-145) Potassium Level 3.4 mEQ/L (3.4-4.9) Chloride Level 100 mEQ/L (98-107) Carbon Dioxide Level 22 mEQ/L (20-30) Anion Gap 15 (5-15) Blood Urea Nitrogen 8 mg/dL (7-23) Creatinine 1.0 mg/dL (0.7-1.2) Estimat Glomerular Filtration Rate > 60 mL/min (>60) Glucose Level 108 mg/dL (74-106) H Calcium Level 8.9 mg/dL (8.6-10.2) Height (Feet): 6 Height (Inches): 0.00 Weight (Pounds): 185 General Appearance: no apparent distress, alert Cardiovascular: normal rate Respiratory/Chest: normal breath sounds, no respiratory distress Abdominal Exam: site - c/d/i Beth Carver N.P. Dec 29, 2016 11:21
[2016-12-29 12:00] VITALS: BP 138/80
--- NOTE | 2016-12-29 12:13 | General Progress Note ---
Assessment/Plan Assessment/Plan ASSESSMENT: 1. Right lower extremity deep venous thrombosis. Has a Right common femoral clot. Continue lovenox. Unable to swallow PO meds 2. Anemia 2/2 hemodilution 3. Hematuria- better now 4. Anemia secondary to iron deficiency 5. Decrease in hemoglobin and hematocrit, rule out gastrointestinal bleed. 6. Leukocytosis has resolved d/t abx treatment. 7. Thrombocytopenia secondary to hemodilution as well- has improved, counts WNL 8. Elevated blood sugar. 9. Elevated troponin, has been seen by Cardiology service. 10. Dysphagia- s/p PEG insertion, tolerating feeding. 11. Hypoxia. RECOMMENDATIONS: - Monitor counts. - Continue lovenox for DVT. - Continue IV iron for iron deficiency. - Appreciate Cardiology and Pulmonary recs - GI prophylaxis with PPI. - Antibiotics as needed. - Appreciate pulm/cc recs - Imaging has been reviewed. - Pain control. - Appreciate consultation!! Subjective ROS Limited/Unobtainable: Yes Constitutional: Reports: no symptoms HEENT: Reports: no symptoms Cardiovascular: Reports: no symptoms Respiratory: Reports: no symptoms Gastrointestinal/Abdominal: Reports: no symptoms Genitourinary: Reports: no symptoms Neurologic/Psychiatric: Reports: no symptoms Endocrine: Reports: no symptoms Hematologic/Lymphatic: Reports: anemia Allergies: Coded Allergies: No Known Allergies (Unverified , 12/05/15) Subjective NAD, remains confused, nonverbal, tolerating PEG, no bleeding Objective Last 24 Hour Vital Signs Date Time Temp Pulse Resp B/P Pulse Ox O2 Delivery O2 Flow Rate FiO2 12/29/16 08:00 96.6 86 19 137/84 96 Room Air 12/29/16 07:29 Room Air 12/29/16 07:29 95 Room Air 12/29/16 04:00 98.2 82 18 133/75 94 Room Air 12/29/16 00:00 98.4 87 18 116/72 94 Room Air 12/28/16 21:59 97.3 12/28/16 20:00 98.1 85 18 131/60 94 Room Air 12/28/16 19:30 95 Room Air 21 12/28/16 19:30 Room Air 21 12/28/16 16:01 97.3 81 17 133/88 95 Room Air Intake and Output 12/28/16 12/29/16 19:00 07:00 Intake Total 450 ml 1135 ml Output Total 625 ml 550 ml Balance -175 ml 585 ml Intake Free Water 250 ml IV Total 450 ml 525 ml Tube Feeding 360 ml Output Urine Total 625 ml 550 ml Laboratory Tests 12/29/16 05:45: White Blood Count 5.5, Red Blood Count 3.83L, Hemoglobin 8.3L, Hematocrit 27.6L , Mean Corpuscular Volume 72L, Mean Corpuscular Hemoglobin 21.7L, Mean Corpuscular Hemoglobin Concent 30.2L, Red Cell Distribution Width 20.9H, Platelet Count 209, Mean Platelet Volume 10.5H, Neutrophils (%) (Auto) 58.2, Lymphocytes (%) (Auto) 23.4, Monocytes (%) (Auto) 11.3H, Eosinophils (%) (Auto) 6.2H, Basophils (%) (Auto) 1.0, Sodium Level 137, Potassium Level 3.4, Chloride Level 100, Carbon Dioxide Level 22, Anion Gap 15, Blood Urea Nitrogen 8, Creatinine 1.0, Estimat Glomerular Filtration Rate > 60, Glucose Level 108H, Calcium Level 8.9 Height (Feet): 6 Height (Inches): 0.00 Weight (Pounds): 185 General Appearance: no apparent distress EENT: PERRL/EOMI Neck: non-tender Cardiovascular: normal peripheral pulses Respiratory/Chest: chest wall non-tender Abdomen: normal bowel sounds Extremities: normal range of motion Edema: no edema noted Leg (L), no edema noted Pedal (R) Neurologic: disoriented Skin: warm/dry Gilberto Freedman Dec 29, 2016 12:13
--- NOTE | 2016-12-29 13:54 | General Progress Note ---
Assessment/Plan Problem List: (1) Hypernatremia ICD Codes: E87.0 - Hyperosmolality and hypernatremia SNOMED: 97894079 (2) Vomiting ICD Codes: R11.10 - Vomiting, unspecified SNOMED: 054648977 (3) Pancreatitis ICD Codes: K85.9 - Acute pancreatitis, unspecified SNOMED: 16647762 (4) Hiatal hernia ICD Codes: K44.9 - Diaphragmatic hernia without obstruction or gangrene SNOMED: 77449353 (5) Acid reflux ICD Codes: K21.9 - Gastro-esophageal reflux disease without esophagitis SNOMED: 280767342 (6) Lung nodule ICD Codes: R91.1 - Solitary pulmonary nodule SNOMED: 570655616 (7) LFTs abnormal ICD Codes: R79.89 - Other specified abnormal findings of blood chemistry SNOMED: 629456682 (8) HTN (hypertension) ICD Codes: I10 - Essential (primary) hypertension SNOMED: 58951405 (9) Acute kidney injury superimposed on chronic kidney disease ICD Codes: S37.009A - Unspecified injury of unspecified kidney, initial encounter; N18.9 - Chronic kidney disease, unspecified SNOMED: 85532537 (10) Aspiration pneumonia ICD Codes: J69.0 - Pneumonitis due to inhalation of food and vomit SNOMED: 683927721, 260995204 Qualifiers: Qualified Codes: J69.0 - Pneumonitis due to inhalation of food and vomit (11) Proteinuria ICD Codes: R80.9 - Proteinuria, unspecified SNOMED: 88617259, 518584520 Qualifiers: Qualified Codes: R80.9 - Proteinuria, unspecified (12) Anemia, chronic disease ICD Codes: D63.8 - Anemia in other chronic diseases classified elsewhere SNOMED: 901250523, 725258448 (13) Acute respiratory failure with hypoxia ICD Codes: J96.01 - Acute respiratory failure with hypoxia SNOMED: 57014318, 585126057 (14) Dehydration ICD Codes: E86.0 - Dehydration SNOMED: 71503034 (15) MAR (acute kidney injury) ICD Codes: N17.9 - Acute kidney failure, unspecified SNOMED: 67855868 (16) COPD (chronic obstructive pulmonary disease) ICD Codes: J44.9 - Chronic obstructive pulmonary disease, unspecified SNOMED: 15241441 (17) CHF (congestive heart failure) ICD Codes: I50.9 - Heart failure, unspecified SNOMED: 59391259 (18) Severe sepsis with septic shock ICD Codes: A41.9 - Sepsis, unspecified organism; R65.21 - Severe sepsis with septic shock SNOMED: 25263379 (19) HCAP (healthcare-associated pneumonia) ICD Codes: J18.9 - Pneumonia, unspecified organism SNOMED: 732286451 (20) Acute respiratory failure ICD Codes: J96.00 - Acute respiratory failure, unspecified whether with hypoxia or hypercapnia SNOMED: 08969861 (21) Schizophrenia ICD Codes: F20.9 - Schizophrenia, unspecified SNOMED: 83636535 (22) Gallstone ICD Codes: K80.20 - Calculus of gallbladder without cholecystitis without obstruction SNOMED: 848338062 (23) Anemia ICD Codes: D64.9 - Anemia, unspecified SNOMED: 962058721 (24) Osteoarthritis ICD Codes: M19.90 - Unspecified osteoarthritis, unspecified site SNOMED: 212145818 (25) Encephalopathy ICD Codes: G93.40 - Encephalopathy, unspecified SNOMED: 60830659, 630604546 (26) UTI (urinary tract infection) ICD Codes: N39.0 - Urinary tract infection, site not specified SNOMED: 46174421 (27) UTI (urinary tract infection) ICD Codes: N39.0 - Urinary tract infection, site not specified SNOMED: 11634978 (28) Elevated troponin ICD Codes: R74.8 - Abnormal levels of other serum enzymes SNOMED: 635522145, 263440423 (29) Pneumonia ICD Codes: J18.9 - Pneumonia, unspecified organism SNOMED: 661518430 Qualifiers: Qualified Codes: J18.1 - Lobar pneumonia, unspecified organism (30) Severe sepsis ICD Codes: A41.9 - Sepsis, unspecified organism; R65.20 - Severe sepsis without septic shock SNOMED: 60989885, 747576331 (31) Acute DVT (deep venous thrombosis) ICD Codes: I82.409 - Acute embolism and thrombosis of unspecified deep veins of unspecified lower extremity SNOMED: 991024200635528 Status: stable, progressing, tolerating diet Assessment/Plan o2 pulm tx abx cbc bmp am dc plan Subjective Constitutional: Reports: weakness Allergies: Coded Allergies: No Known Allergies (Unverified , 12/05/15) All Systems: reviewed and negative except above Subjective sleepy calm Objective Last 24 Hour Vital Signs Date Time Temp Pulse Resp B/P Pulse Ox O2 Delivery O2 Flow Rate FiO2 12/29/16 12:00 98.6 79 20 138/80 94 Room Air 12/29/16 08:00 96.6 86 19 137/84 96 Room Air 12/29/16 07:29 Room Air 21 12/29/16 07:29 95 Room Air 21 12/29/16 04:00 98.2 82 18 133/75 94 Room Air 12/29/16 00:00 98.4 87 18 116/72 94 Room Air 12/28/16 21:59 97.3 12/28/16 20:00 98.1 85 18 131/60 94 Room Air 12/28/16 19:30 95 Room Air 21 12/28/16 19:30 Room Air 21 12/28/16 16:01 97.3 81 17 133/88 95 Room Air Intake and Output 12/28/16 12/29/16 19:00 07:00 Intake Total 450 ml 1135 ml Output Total 625 ml 550 ml Balance -175 ml 585 ml Intake Free Water 250 ml IV Total 450 ml 525 ml Tube Feeding 360 ml Output Urine Total 625 ml 550 ml Laboratory Tests 12/29/16 05:45: White Blood Count 5.5, Red Blood Count 3.83L, Hemoglobin 8.3L, Hematocrit 27.6L , Mean Corpuscular Volume 72L, Mean Corpuscular Hemoglobin 21.7L, Mean Corpuscular Hemoglobin Concent 30.2L, Red Cell Distribution Width 20.9H, Platelet Count 209, Mean Platelet Volume 10.5H, Neutrophils (%) (Auto) 58.2, Lymphocytes (%) (Auto) 23.4, Monocytes (%) (Auto) 11.3H, Eosinophils (%) (Auto) 6.2H, Basophils (%) (Auto) 1.0, Sodium Level 137, Potassium Level 3.4, Chloride Level 100, Carbon Dioxide Level 22, Anion Gap 15, Blood Urea Nitrogen 8, Creatinine 1.0, Estimat Glomerular Filtration Rate > 60, Glucose Level 108H, Calcium Level 8.9 Height (Feet): 6 Height (Inches): 0.00 Weight (Pounds): 185 General Appearance: lethargic, confused EENT: normal ENT inspection Neck: normal alignment Cardiovascular: normal peripheral pulses, normal rate, regular rhythm Respiratory/Chest: chest wall non-tender, lungs clear, normal breath sounds Abdomen: normal bowel sounds, non tender, soft Extremities: normal inspection Edema: no edema noted Arm (L), no edema noted Arm (R), no edema noted Leg (L), no edema noted Leg (R), no edema noted Pedal (L), no edema noted Pedal (R), no edema noted Generalized Neurologic: motor weakness Skin: normal pigmentation, warm/dry ALONDRA SINGH Dec 29, 2016 13:53
--- NOTE | 2016-12-29 15:14 | Cardiac Electrophysiology PN ---
Assessment/Plan Assessment/Plan 1. Hypotension, resolved with IV fluids and antibiotics . EF 60%. 2. Troponin leak 0.43 and 0.46. Levels flat and nonspecific. Nonverbal. ECG normal and EF 60% Off aspirin for severe anemia and hold off beta uli for hypotension. 3. Increase WBC >20. Normalized to 6.8 On IV abx per ID 4. Anemia with 3 gm drop in HB from 11 to 8. No obvious gi bleed. 5. Acute RCFV DVT on Lovenox and Coumadin per Dr. Tesfaye. 6. Dysphagia.S/P PEG DW RN Subjective Subjective Comfortable in NAD. Sitter at bedside. Had PEG placement yesterday and being fed by PEG. Objective Last 24 Hour Vital Signs Date Time Temp Pulse Resp B/P Pulse Ox O2 Delivery O2 Flow Rate FiO2 12/29/16 12:00 98.6 79 20 138/80 94 Room Air 12/29/16 08:00 96.6 86 19 137/84 96 Room Air 12/29/16 07:29 Room Air 21 12/29/16 07:29 95 Room Air 21 12/29/16 04:00 98.2 82 18 133/75 94 Room Air 12/29/16 00:00 98.4 87 18 116/72 94 Room Air 12/28/16 21:59 97.3 12/28/16 20:00 98.1 85 18 131/60 94 Room Air 12/28/16 19:30 95 Room Air 21 12/28/16 19:30 Room Air 21 12/28/16 16:01 97.3 81 17 133/88 95 Room Air Intake and Output 12/28/16 12/29/16 19:00 07:00 Intake Total 450 ml 1135 ml Output Total 625 ml 550 ml Balance -175 ml 585 ml Intake Free Water 250 ml IV Total 450 ml 525 ml Tube Feeding 360 ml Output Urine Total 625 ml 550 ml Laboratory Tests Test 12/29/16 05:45 White Blood Count 5.5 K/UL (4.8-10.8) Red Blood Count 3.83 M/UL (4.70-6.10) L Hemoglobin 8.3 G/DL (14.2-18.0) L Hematocrit 27.6 % (42.0-52.0) L Mean Corpuscular Volume 72 FL (80-99) L Mean Corpuscular Hemoglobin 21.7 PG (27.0-31.0) L Mean Corpuscular Hemoglobin Concent 30.2 G/DL (32.0-36.0) L Red Cell Distribution Width 20.9 % (11.6-14.8) H Platelet Count 209 K/UL (150-450) Mean Platelet Volume 10.5 FL (6.5-10.1) H Neutrophils (%) (Auto) 58.2 % (45.0-75.0) Lymphocytes (%) (Auto) 23.4 % (20.0-45.0) Monocytes (%) (Auto) 11.3 % (1.0-10.0) H Eosinophils (%) (Auto) 6.2 % (0.0-3.0) H Basophils (%) (Auto) 1.0 % (0.0-2.0) Sodium Level 137 mEQ/L (135-145) Potassium Level 3.4 mEQ/L (3.4-4.9) Chloride Level 100 mEQ/L (98-107) Carbon Dioxide Level 22 mEQ/L (20-30) Anion Gap 15 (5-15) Blood Urea Nitrogen 8 mg/dL (7-23) Creatinine 1.0 mg/dL (0.7-1.2) Estimat Glomerular Filtration Rate > 60 mL/min (>60) Glucose Level 108 mg/dL (74-106) H Calcium Level 8.9 mg/dL (8.6-10.2) Objective HEAD AND NECK: No JVD. LUNGS: Coarse rhonchi. CARDIOVASCULAR: Regular S1 and S2 with no gallop or murmur. ABDOMEN: Soft. PEG in place EXTREMITIES: No pitting edema, lower extremities of contraction in position. VOLODYMYR HOSKINS Dec 29, 2016 15:14
--- NOTE | 2016-12-29 15:36 | Infectious Diseases Prog Note ---
Assessment/Plan Problems: (1) HCAP (healthcare-associated pneumonia) Assessment & Plan: with Acinetobacter baumannii pansensitive, improving , will continue levaquin ,and vancomycin for 14 days. EOT 01/04/17 (2) Severe sepsis with septic shock Assessment & Plan: with leukocytosis, improving with levaquin , and vancomycin. blood culture is negative .continue antibiotics for 14 days, EOT (3) CHF (congestive heart failure) Assessment & Plan: continue diuresis, cardiology is following (4) COPD (chronic obstructive pulmonary disease) Assessment & Plan: continue inhalers , with antibiotics, pulmonary is following (5) MAR (acute kidney injury) Assessment & Plan: due to sepsis, continue gentle hydration, adjust meds as per creatinine clearance .consult nephrology Subjective ROS Limited/Unobtainable: Yes Allergies: Coded Allergies: No Known Allergies (Unverified , 12/05/15) Subjective he is breathing well on room air, comfortable, and alert, no cough or SOB , not in distress, afebrile. Objective Vital Signs Last 24 Hour Vital Signs Date Time Temp Pulse Resp B/P Pulse Ox O2 Delivery O2 Flow Rate FiO2 12/29/16 12:00 98.6 79 20 138/80 94 Room Air 12/29/16 08:00 96.6 86 19 137/84 96 Room Air 12/29/16 07:29 Room Air 21 12/29/16 07:29 95 Room Air 21 12/29/16 04:00 98.2 82 18 133/75 94 Room Air 12/29/16 00:00 98.4 87 18 116/72 94 Room Air 12/28/16 21:59 97.3 12/28/16 20:00 98.1 85 18 131/60 94 Room Air 12/28/16 19:30 95 Room Air 21 12/28/16 19:30 Room Air 21 12/28/16 16:01 97.3 81 17 133/88 95 Room Air Height (Feet): 6 Height (Inches): 0.00 Weight (Pounds): 185 General Appearance: WD/WN, no acute distress HEENT: normocephalic, atraumatic, anicteric, mucous membranes moist Respiratory/Chest: chest wall non-tender, lungs clear, normal breath sounds, no respiratory distress, no accessory muscle use Cardiovascular: normal peripheral pulses, normal rate, regular rhythm, no gallop/murmur Abdomen: normal bowel sounds, soft, non tender, no organomegaly, non distended Extremities: no cyanosis, no clubbing Skin: no rash, no lesions Laboratory Tests Test 12/29/16 05:45 White Blood Count 5.5 K/UL (4.8-10.8) Red Blood Count 3.83 M/UL (4.70-6.10) L Hemoglobin 8.3 G/DL (14.2-18.0) L Hematocrit 27.6 % (42.0-52.0) L Mean Corpuscular Volume 72 FL (80-99) L Mean Corpuscular Hemoglobin 21.7 PG (27.0-31.0) L Mean Corpuscular Hemoglobin Concent 30.2 G/DL (32.0-36.0) L Red Cell Distribution Width 20.9 % (11.6-14.8) H Platelet Count 209 K/UL (150-450) Mean Platelet Volume 10.5 FL (6.5-10.1) H Neutrophils (%) (Auto) 58.2 % (45.0-75.0) Lymphocytes (%) (Auto) 23.4 % (20.0-45.0) Monocytes (%) (Auto) 11.3 % (1.0-10.0) H Eosinophils (%) (Auto) 6.2 % (0.0-3.0) H Basophils (%) (Auto) 1.0 % (0.0-2.0) Sodium Level 137 mEQ/L (135-145) Potassium Level 3.4 mEQ/L (3.4-4.9) Chloride Level 100 mEQ/L (98-107) Carbon Dioxide Level 22 mEQ/L (20-30) Anion Gap 15 (5-15) Blood Urea Nitrogen 8 mg/dL (7-23) Creatinine 1.0 mg/dL (0.7-1.2) Estimat Glomerular Filtration Rate > 60 mL/min (>60) Glucose Level 108 mg/dL (74-106) H Calcium Level 8.9 mg/dL (8.6-10.2) Current Medications Medications (Trade) Dose Ordered Sig/Gloria Route PRN Reason Start Time Stop Time Status Last Admin Dose Admin Acetaminophen (Tylenol) 650 mg Q4H PRN ORAL Mild Pain (Pain Scale 1-3) 12/24/16 08:00 01/23/17 07:59 Acetaminophen (Tylenol) 650 mg Q4H PRN RECTAL fever > 100.5F 12/24/16 08:00 01/23/17 07:59 Bisacodyl (Dulcolax) 10 mg DAILYPRN PRN RECTAL Constipation 12/24/16 08:00 01/23/17 07:59 Dextrose/Sodium Chloride 1,000 ml @ 50 mls/hr Q20H IV 12/24/16 07:15 01/23/17 07:14 12/29/16 04:16 Enoxaparin Sodium (Lovenox) 80 mg EVERY 12 HOURS SUBQ 12/24/16 09:00 01/23/17 08:59 12/29/16 09:25 Levofloxacin 100 ml @ 100 mls/hr Q24H IVPB 12/24/16 17:00 12/31/16 16:59 12/28/16 17:43 Lorazepam (Ativan 2mg/ml 1ml) 0.5 mg Q4H PRN IV For Anxiety 12/24/16 08:00 12/31/16 07:59 12/25/16 20:10 Magnesium Hydroxide (Mom) 30 ml HSPRN PRN ORAL Constipation 12/24/16 21:00 01/23/17 20:59 Morphine Sulfate (Morphine Sulfate) 2 mg Q6H PRN IVP Moderate Pain (Pain Scale 4-6) 12/24/16 08:00 12/31/16 07:59 12/28/16 21:29 Nitroglycerin (Ntg) 0.4 mg Q5M PRN SL Prn Chest Pain 12/24/16 08:00 Ondansetron HCl (Zofran) 4 mg Q6H PRN IVP Nausea & Vomiting 12/24/16 08:00 01/23/17 07:59 Pantoprazole (Protonix) 40 mg DAILY GT 12/30/16 09:00 01/29/17 08:59 Potassium Chloride (KCl 10% 20 mEq oral solution) 20 meq DAILY NG 12/29/16 09:00 01/28/17 08:59 12/29/16 09:14 Promethazine HCl/ Codeine (Phenergan with Codeine) 5 ml Q4H PRN ORAL For Cough 12/24/16 08:00 01/23/17 07:59 Temazepam (Restoril) 15 mg HSPRN PRN ORAL Insomnia 12/24/16 21:00 12/31/16 20:59 Vancomycin HCl (Vanco rx to dose) 1 ea DAILY PRN MISC PER RX PROTOCOL 12/24/16 09:00 01/23/17 08:59 Vancomycin HCl/ Dextrose (Vancomycin/D5W) 275 ml @ 183.708 mls/hr Q12HR IVPB 12/24/16 09:00 01/02/17 08:59 12/29/16 09:14 Frankie Ratliff M.D. Dec 29, 2016 15:36
[2016-12-29 16:00] VITALS: BP 132/76
[2016-12-29] MEDS ORDERED: LORAZEPAM0.5 MG ORAL (17:55)
[2016-12-29] MEDS ORDERED: TYLENOL325 MG ORAL (17:59)
[2016-12-29] MEDS ORDERED: ACETAMINOPHEN120 MG RECTAL (18:01)
[2016-12-29] MEDS ORDERED: LOVENOX10 M2 SUBQ (18:03)
[2016-12-29] MEDS ORDERED: PROMETHAZINE-C118 M1 ORAL (18:03)
[2016-12-29] MEDS ORDERED: NITROGLYCERIN0.4 MG SL (18:06)
[2016-12-29] MEDS ORDERED: ZOFRAN4 M3 ORAL (18:07)
[2016-12-29] MEDS ORDERED: RESTORIL15 MG ORAL (18:11)
[2016-12-29] MEDS ORDERED: POTASSIUM20 MEQ/15 GT (18:15)
[2016-12-29 20:00] VITALS: BP 120/71
[2016-12-29] MEDS: Morphine Sulfate 2mg/ml Inj IVP PRN (21:15)
--- NOTE | 2016-12-29 22:25 | Pulmonology Progress Note ---
Assessment/Plan Problems: (1) Severe sepsis (2) Pneumonia (3) Acute respiratory failure (4) Acute DVT (deep venous thrombosis) (5) MAR (acute kidney injury) (6) Anemia (7) Encephalopathy Assessment/Plan IV antibiotics check cultures swallow study noted, deep penetration with nectar check cultures tolerating feeding dvt prophylaxis all notes and labs reviewed Subjective Allergies: Coded Allergies: No Known Allergies (Unverified , 12/05/15) Objective Last 24 Hour Vital Signs Date Time Temp Pulse Resp B/P Pulse Ox O2 Delivery O2 Flow Rate FiO2 12/29/16 21:45 97.8 12/29/16 19:36 92 Room Air 21 12/29/16 19:36 Room Air 21 12/29/16 16:00 97.8 82 19 132/76 96 Room Air 12/29/16 12:00 98.6 79 20 138/80 94 Room Air 12/29/16 08:00 96.6 86 19 137/84 96 Room Air 12/29/16 07:29 Room Air 21 12/29/16 07:29 95 Room Air 12/29/16 04:00 98.2 82 18 133/75 94 Room Air 12/29/16 00:00 98.4 87 18 116/72 94 Room Air Intake and Output 12/28/16 12/29/16 19:00 07:00 Intake Total 450 ml 1195 ml Output Total 625 ml 550 ml Balance -175 ml 645 ml Intake Free Water 250 ml IV Total 450 ml 525 ml Tube Feeding 420 ml Output Urine Total 625 ml 550 ml Objective General Appearance: WD/WN, no apparent distress Lines, tubes and drains: peripheral HEENT: normocephalic, atraumatic Neck: non-tender, supple Respiratory/Chest: chest wall non-tender, rhonchi - bilaterally Cardiovascular/Chest: normal peripheral pulses, normal rate Abdomen: normal bowel sounds Genitourinary/Rectal: normal genital exam Extremities: normal range of motion Laboratory Tests 12/29/16 05:45: White Blood Count 5.5, Red Blood Count 3.83L, Hemoglobin 8.3L, Hematocrit 27.6L , Mean Corpuscular Volume 72L, Mean Corpuscular Hemoglobin 21.7L, Mean Corpuscular Hemoglobin Concent 30.2L, Red Cell Distribution Width 20.9H, Platelet Count 209, Mean Platelet Volume 10.5H, Neutrophils (%) (Auto) 58.2, Lymphocytes (%) (Auto) 23.4, Monocytes (%) (Auto) 11.3H, Eosinophils (%) (Auto) 6.2H, Basophils (%) (Auto) 1.0, Sodium Level 137, Potassium Level 3.4, Chloride Level 100, Carbon Dioxide Level 22, Anion Gap 15, Blood Urea Nitrogen 8, Creatinine 1.0, Estimat Glomerular Filtration Rate > 60, Glucose Level 108H, Calcium Level 8.9 Current Medications Medications (Trade) Dose Ordered Sig/Gloria Route PRN Reason Start Time Stop Time Status Last Admin Dose Admin Acetaminophen (Tylenol) 650 mg Q4H PRN ORAL Mild Pain (Pain Scale 1-3) 12/24/16 08:00 01/23/17 07:59 Acetaminophen (Tylenol) 650 mg Q4H PRN RECTAL fever > 100.5F 12/24/16 08:00 01/23/17 07:59 Bisacodyl (Dulcolax) 10 mg DAILYPRN PRN RECTAL Constipation 12/24/16 08:00 01/23/17 07:59 Dextrose/Sodium Chloride 1,000 ml @ 50 mls/hr Q20H IV 12/24/16 07:15 01/23/17 07:14 12/29/16 04:16 Enoxaparin Sodium (Lovenox) 80 mg EVERY 12 HOURS SUBQ 12/24/16 09:00 01/23/17 08:59 12/29/16 21:22 Levofloxacin 100 ml @ 100 mls/hr Q24H IVPB 12/24/16 17:00 12/31/16 16:59 12/29/16 16:46 Lorazepam (Ativan 2mg/ml 1ml) 0.5 mg Q4H PRN IV For Anxiety 12/24/16 08:00 12/31/16 07:59 12/25/16 20:10 Magnesium Hydroxide (Mom) 30 ml HSPRN PRN ORAL Constipation 12/24/16 21:00 01/23/17 20:59 Morphine Sulfate (Morphine Sulfate) 2 mg Q6H PRN IVP Moderate Pain (Pain Scale 4-6) 12/24/16 08:00 12/31/16 07:59 12/29/16 21:15 Nitroglycerin (Ntg) 0.4 mg Q5M PRN SL Prn Chest Pain 4/15/17 08:00 Ondansetron HCl (Zofran) 4 mg Q6H PRN IVP Nausea & Vomiting 12/24/16 08:00 01/23/17 07:59 Pantoprazole (Protonix) 40 mg DAILY GT 12/30/16 09:00 01/29/17 08:59 Potassium Chloride (KCl 10% 20 mEq oral solution) 20 meq DAILY NG 12/29/16 09:00 01/28/17 08:59 12/29/16 09:14 Promethazine HCl/ Codeine (Phenergan with Codeine) 5 ml Q4H PRN ORAL For Cough 12/24/16 08:00 01/23/17 07:59 Temazepam (Restoril) 15 mg HSPRN PRN ORAL Insomnia 12/24/16 21:00 12/31/16 20:59 Vancomycin HCl (Vanco rx to dose) 1 ea DAILY PRN MISC PER RX PROTOCOL 12/24/16 09:00 01/23/17 08:59 Vancomycin HCl/ Dextrose (Vancomycin/D5W) 275 ml @ 183.708 mls/hr Q12HR IVPB 12/24/16 09:00 01/02/17 08:59 12/29/16 21:14 ALMA LINDO Dec 29, 2016 22:24
--- NOTE | 2016-12-29 23:27 | Diagnostic Imaging Report ---
APPROVED REPORT CPT Code: 76978 Present Symptoms Shortness of breath Comments: Severe bilateral contracture of lower extremities Limited study due to severe lower extremity contracture. RIGHT LEG: Venous imaging reveals acute thrombus in the common femoral vein. The mid to distal superficial femoral vein and the popliteal vein were not visualized. There is no evidence of thrombus in the calf veins. The greater saphenous vein is also within normal limits. LEFT LEG: Venous imaging reveals a patent deep venous system. There is no evidence of thrombus within the proximal superficial femoral vein. The mid to distal superficial femoral vein and popliteal vein were not visualized. The calf veins were not visualized. The greater saphenous vein is within normal limits. FRED Ramirez was notified of abnormal results at 21:20 hrs.
--- NOTE | 2016-12-29 23:49 | Nephrology Progress Note ---
Objective Objective Last 24 Hour Vital Signs Date Time Temp Pulse Resp B/P Pulse Ox O2 Delivery O2 Flow Rate FiO2 12/29/16 21:45 97.8 12/29/16 20:00 97.5 94 22 120/71 94 12/29/16 19:36 92 Room Air 21 12/29/16 19:36 Room Air 21 12/29/16 16:00 97.8 82 19 132/76 96 Room Air 12/29/16 12:00 98.6 79 20 138/80 94 Room Air 12/29/16 08:00 96.6 86 19 137/84 96 Room Air 12/29/16 07:29 Room Air 21 12/29/16 07:29 95 Room Air 21 12/29/16 04:00 98.2 82 18 133/75 94 Room Air 12/29/16 00:00 98.4 87 18 116/72 94 Room Air Intake and Output 12/28/16 12/29/16 19:00 07:00 Intake Total 450 ml 1195 ml Output Total 625 ml 550 ml Balance -175 ml 645 ml Intake Free Water 250 ml IV Total 450 ml 525 ml Tube Feeding 420 ml Output Urine Total 625 ml 550 ml Laboratory Tests 12/29/16 05:45: White Blood Count 5.5, Red Blood Count 3.83L, Hemoglobin 8.3L, Hematocrit 27.6L , Mean Corpuscular Volume 72L, Mean Corpuscular Hemoglobin 21.7L, Mean Corpuscular Hemoglobin Concent 30.2L, Red Cell Distribution Width 20.9H, Platelet Count 209, Mean Platelet Volume 10.5H, Neutrophils (%) (Auto) 58.2, Lymphocytes (%) (Auto) 23.4, Monocytes (%) (Auto) 11.3H, Eosinophils (%) (Auto) 6.2H, Basophils (%) (Auto) 1.0, Sodium Level 137, Potassium Level 3.4, Chloride Level 100, Carbon Dioxide Level 22, Anion Gap 15, Blood Urea Nitrogen 8, Creatinine 1.0, Estimat Glomerular Filtration Rate > 60, Glucose Level 108H, Calcium Level 8.9 Height (Feet): 6 Height (Inches): 0.00 Weight (Pounds): 185 BRIGID OLIVERA Dec 29, 2016 23:49
[2016-12-30] VITALS: BP 129/87
[2016-12-30] MEDS: D5 1/2NS 1,000 ML IV SCH ×2 (02:57→23:21)
[2016-12-30 04:00] VITALS: BP 96/59
[2016-12-30 07:52] VITALS: BP 122/57
[2016-12-30 09:17] LABS: BASOPHILS % (AUTO) 1.1 % (0.0-2.0); LYMPHOCYTES % (AUTO) 18.3 % (20.0-45.0); MEAN CORPUSCULAR HEMOGLOBIN 21.8 PG (27.0-31.0); MEAN CORPUSCULAR VOLUME 73 FL (80-99); MEAN PLATELET VOLUME 9.8 FL (6.5-10.1); MONOCYTES % (AUTO) 11.9 % (1.0-10.0); NEUTROPHILS % (AUTO) 58.8 % (45.0-75.0); PLATELET COUNT 223 K/UL (150-450); RED CELL DISTRIBUTION WIDTH 21.7 % (11.6-14.8)
[2016-12-30] MEDS: KCl 10% 20 mEq/15ml liquid NG SCH (09:23)
[2016-12-30] MEDS: Pantoprazole 40mg pkt GT SCH (09:23)
[2016-12-30] MEDS: Vancomycin 750 MG in D5W 275 ML IVPB SCH ×2 (09:24→20:09)
[2016-12-30] MEDS: Enoxaparin 80mg Inj SUBQ SCH ×2 (09:31→20:16)
[2016-12-30 10:03] LABS: ANION GAP 12 (5-15); CALCIUM 8.7 mg/dL (8.6-10.2); CARBON DIOXIDE 25 mEQ/L (20-30); CHLORIDE 103 mEQ/L (98-107); CREATININE 0.9 mg/dL (0.7-1.2); GLOMERULAR FILTRATION RATE > 60 mL/min (>60); HEMOLYSIS 6; POTASSIUM 3.8 mEQ/L (3.4-4.9); SODIUM 140 mEQ/L (135-145)
--- NOTE | 2016-12-30 10:35 | GI Progress Note ---
Assessment/Plan Problems: (1) Schizophrenia ICD Codes: F20.9 - Schizophrenia, unspecified SNOMED: 28262836 (2) Anemia ICD Codes: D64.9 - Anemia, unspecified SNOMED: 693686637 (3) Severe sepsis ICD Codes: A41.9 - Sepsis, unspecified organism; R65.20 - Severe sepsis without septic shock SNOMED: 89172801, 763791252 (4) Hiatal hernia ICD Codes: K44.9 - Diaphragmatic hernia without obstruction or gangrene SNOMED: 76657859 (5) Hypernatremia ICD Codes: E87.0 - Hyperosmolality and hypernatremia SNOMED: 35898268 (6) Encounter for PEG (percutaneous endoscopic gastrostomy) ICD Codes: Z43.1 - Encounter for attention to gastrostomy SNOMED: 798126040, 773065577 Status: stable, unchanged Status Narrative Discussed with Dr. Dinh. Assessment/Plan SUMMARY OF FINDINGS: Status post successful percutaneous endoscopic gastrostomy placement. RECOMMENDATIONS: ok for DC per GI standpoint 1. Abdominal binder. 2. Elevate the head of the bed at all times. 3. G-tube flush. 4. G-tube care. 5. GTF's, tolerating resume Lovenox ppi iron deficiency >> cont venofer fu labs Subjective Subjective limited, AMS Objective Last 24 Hour Vital Signs Date Time Temp Pulse Resp B/P Pulse Ox O2 Delivery O2 Flow Rate FiO2 12/30/16 07:52 97.9 82 20 122/57 96 Room Air 12/30/16 07:00 93 Room Air 12/30/16 07:00 Room Air 12/30/16 04:00 98.8 79 20 96/59 91 12/30/16 00:00 98.8 85 129/87 12/29/16 21:45 97.8 12/29/16 20:00 97.5 94 22 120/71 94 12/29/16 19:36 92 Room Air 21 12/29/16 19:36 Room Air 21 12/29/16 16:00 97.8 82 19 132/76 96 Room Air 12/29/16 12:00 98.6 79 20 138/80 94 Room Air Intake and Output 12/29/16 12/30/16 19:00 07:00 Intake Total 1877.416 ml 1515 ml Output Total 800 ml Balance 1077.416 ml 1515 ml Intake Free Water 300 ml 300 ml IV Total 917.416 ml 675 ml Tube Feeding 660 ml 540 ml Output Urine Total 800 ml Laboratory Tests Test 12/30/16 08:15 White Blood Count 8.0 K/UL (4.8-10.8) Red Blood Count 4.20 M/UL (4.70-6.10) L Hemoglobin 9.1 G/DL (14.2-18.0) L Hematocrit 30.5 % (42.0-52.0) L Mean Corpuscular Volume 73 FL (80-99) L Mean Corpuscular Hemoglobin 21.8 PG (27.0-31.0) L Mean Corpuscular Hemoglobin Concent 30.0 G/DL (32.0-36.0) L Red Cell Distribution Width 21.7 % (11.6-14.8) H Platelet Count 223 K/UL (150-450) Mean Platelet Volume 9.8 FL (6.5-10.1) Neutrophils (%) (Auto) 58.8 % (45.0-75.0) Lymphocytes (%) (Auto) 18.3 % (20.0-45.0) L Monocytes (%) (Auto) 11.9 % (1.0-10.0) H Eosinophils (%) (Auto) 10.0 % (0.0-3.0) H Basophils (%) (Auto) 1.1 % (0.0-2.0) Sodium Level 140 mEQ/L (135-145) Potassium Level 3.8 mEQ/L (3.4-4.9) Chloride Level 103 mEQ/L (98-107) Carbon Dioxide Level 25 mEQ/L (20-30) Anion Gap 12 (5-15) Blood Urea Nitrogen 12 mg/dL (7-23) Creatinine 0.9 mg/dL (0.7-1.2) Estimat Glomerular Filtration Rate > 60 mL/min (>60) Glucose Level 110 mg/dL (74-106) H Calcium Level 8.7 mg/dL (8.6-10.2) Vancomycin Level Trough 17.2 ug/mL (5.0-12.0) H Height (Feet): 6 Height (Inches): 0.00 Weight (Pounds): 185 General Appearance: WD/WN Cardiovascular: normal rate Respiratory/Chest: no respiratory distress Abdominal Exam: GT site - c/d/i Beth Carver N.P. Dec 30, 2016 10:35
--- NOTE | 2016-12-30 11:49 | General Progress Note ---
Assessment/Plan Problem List: (1) Hypernatremia ICD Codes: E87.0 - Hyperosmolality and hypernatremia SNOMED: 98588465 (2) Vomiting ICD Codes: R11.10 - Vomiting, unspecified SNOMED: 348298553 (3) Pancreatitis ICD Codes: K85.9 - Acute pancreatitis, unspecified SNOMED: 45635482 (4) Hiatal hernia ICD Codes: K44.9 - Diaphragmatic hernia without obstruction or gangrene SNOMED: 63760655 (5) Acid reflux ICD Codes: K21.9 - Gastro-esophageal reflux disease without esophagitis SNOMED: 393888506 (6) Lung nodule ICD Codes: R91.1 - Solitary pulmonary nodule SNOMED: 666807589 (7) LFTs abnormal ICD Codes: R79.89 - Other specified abnormal findings of blood chemistry SNOMED: 896170074 (8) HTN (hypertension) ICD Codes: I10 - Essential (primary) hypertension SNOMED: 25928558 (9) Acute kidney injury superimposed on chronic kidney disease ICD Codes: S37.009A - Unspecified injury of unspecified kidney, initial encounter; N18.9 - Chronic kidney disease, unspecified SNOMED: 10931782 (10) Aspiration pneumonia ICD Codes: J69.0 - Pneumonitis due to inhalation of food and vomit SNOMED: 558765980, 901465058 Qualifiers: Qualified Codes: J69.0 - Pneumonitis due to inhalation of food and vomit (11) Proteinuria ICD Codes: R80.9 - Proteinuria, unspecified SNOMED: 33295837, 542247134 Qualifiers: Qualified Codes: R80.9 - Proteinuria, unspecified (12) Anemia, chronic disease ICD Codes: D63.8 - Anemia in other chronic diseases classified elsewhere SNOMED: 429868891, 352494425 (13) Acute respiratory failure with hypoxia ICD Codes: J96.01 - Acute respiratory failure with hypoxia SNOMED: 14186665, 597011716 (14) Dehydration ICD Codes: E86.0 - Dehydration SNOMED: 72774955 (15) MAR (acute kidney injury) ICD Codes: N17.9 - Acute kidney failure, unspecified SNOMED: 75601009 (16) COPD (chronic obstructive pulmonary disease) ICD Codes: J44.9 - Chronic obstructive pulmonary disease, unspecified SNOMED: 68183033 (17) CHF (congestive heart failure) ICD Codes: I50.9 - Heart failure, unspecified SNOMED: 30619649 (18) Severe sepsis with septic shock ICD Codes: A41.9 - Sepsis, unspecified organism; R65.21 - Severe sepsis with septic shock SNOMED: 30939841 (19) HCAP (healthcare-associated pneumonia) ICD Codes: J18.9 - Pneumonia, unspecified organism SNOMED: 904526358 (20) Acute respiratory failure ICD Codes: J96.00 - Acute respiratory failure, unspecified whether with hypoxia or hypercapnia SNOMED: 42285939 (21) Schizophrenia ICD Codes: F20.9 - Schizophrenia, unspecified SNOMED: 54260940 (22) Gallstone ICD Codes: K80.20 - Calculus of gallbladder without cholecystitis without obstruction SNOMED: 912297027 (23) Anemia ICD Codes: D64.9 - Anemia, unspecified SNOMED: 062268384 (24) Osteoarthritis ICD Codes: M19.90 - Unspecified osteoarthritis, unspecified site SNOMED: 752286359 (25) Encephalopathy ICD Codes: G93.40 - Encephalopathy, unspecified SNOMED: 70701921, 114424596 (26) UTI (urinary tract infection) ICD Codes: N39.0 - Urinary tract infection, site not specified SNOMED: 11406507 (27) UTI (urinary tract infection) ICD Codes: N39.0 - Urinary tract infection, site not specified SNOMED: 25668601 (28) Elevated troponin ICD Codes: R74.8 - Abnormal levels of other serum enzymes SNOMED: 616363301, 269686332 (29) Pneumonia ICD Codes: J18.9 - Pneumonia, unspecified organism SNOMED: 550172786 Qualifiers: Qualified Codes: J18.1 - Lobar pneumonia, unspecified organism (30) Severe sepsis ICD Codes: A41.9 - Sepsis, unspecified organism; R65.20 - Severe sepsis without septic shock SNOMED: 65765670, 319971513 (31) Acute DVT (deep venous thrombosis) ICD Codes: I82.409 - Acute embolism and thrombosis of unspecified deep veins of unspecified lower extremity SNOMED: 746852632286914 Status: stable, progressing, tolerating diet Assessment/Plan o2 pulm tx abx dc plan Subjective Constitutional: Reports: weakness Allergies: Coded Allergies: No Known Allergies (Unverified , 12/05/15) All Systems: reviewed and negative except above Subjective sleepy calm Objective Last 24 Hour Vital Signs Date Time Temp Pulse Resp B/P Pulse Ox O2 Delivery O2 Flow Rate FiO2 12/30/16 07:52 97.9 82 20 122/57 96 Room Air 12/30/16 07:00 93 Room Air 21 12/30/16 07:00 Room Air 21 12/30/16 04:00 98.8 79 20 96/59 91 12/30/16 00:00 98.8 85 129/87 12/29/16 21:45 97.8 12/29/16 20:00 97.5 94 22 120/71 94 12/29/16 19:36 92 Room Air 21 12/29/16 19:36 Room Air 21 12/29/16 16:00 97.8 82 19 132/76 96 Room Air 12/29/16 12:00 98.6 79 20 138/80 94 Room Air Intake and Output 12/29/16 12/30/16 19:00 07:00 Intake Total 1877.416 ml 1515 ml Output Total 800 ml Balance 1077.416 ml 1515 ml Intake Free Water 300 ml 300 ml IV Total 917.416 ml 675 ml Tube Feeding 660 ml 540 ml Output Urine Total 800 ml Laboratory Tests 12/30/16 08:15: White Blood Count 8.0, Red Blood Count 4.20L, Hemoglobin 9.1L, Hematocrit 30.5L , Mean Corpuscular Volume 73L, Mean Corpuscular Hemoglobin 21.8L, Mean Corpuscular Hemoglobin Concent 30.0L, Red Cell Distribution Width 21.7H, Platelet Count 223, Mean Platelet Volume 9.8, Neutrophils (%) (Auto) 58.8, Lymphocytes (%) (Auto) 18.3L, Monocytes (%) (Auto) 11.9H, Eosinophils (%) (Auto ) 10.0H, Basophils (%) (Auto) 1.1, Sodium Level 140, Potassium Level 3.8, Chloride Level 103, Carbon Dioxide Level 25, Anion Gap 12, Blood Urea Nitrogen 12, Creatinine 0.9, Estimat Glomerular Filtration Rate > 60, Glucose Level 110H , Calcium Level 8.7, Vancomycin Level Trough 17.2H Height (Feet): 6 Height (Inches): 0.00 Weight (Pounds): 185 General Appearance: lethargic EENT: normal ENT inspection Neck: normal alignment Cardiovascular: normal peripheral pulses, normal rate, regular rhythm Respiratory/Chest: chest wall non-tender, lungs clear, normal breath sounds Abdomen: normal bowel sounds, non tender, soft Extremities: normal inspection Edema: no edema noted Arm (L), no edema noted Arm (R), no edema noted Leg (L), no edema noted Leg (R), no edema noted Pedal (L), no edema noted Pedal (R), no edema noted Generalized Neurologic: motor weakness Skin: normal pigmentation, warm/dry ALONDRA SINGH Dec 30, 2016 11:49
[2016-12-30 12:15] VITALS: BP 130/69
--- NOTE | 2016-12-30 15:06 | General Progress Note ---
Assessment/Plan Assessment/Plan ASSESSMENT: 1. Right lower extremity deep venous thrombosis. Has a Right common femoral clot. Continue lovenox. Started on coumadin, INR goal 2-3 via peg 2. Anemia 2/2 hemodilution 3. Hematuria- better now 4. Anemia secondary to iron deficiency 5. Decrease in hemoglobin and hematocrit, rule out gastrointestinal bleed. 6. Leukocytosis has resolved d/t abx treatment. 7. Thrombocytopenia secondary to hemodilution as well- has improved, counts remain stable and WNL. 8. Elevated blood sugar. 9. Elevated troponin, has been seen by Cardiology service. 10. Dysphagia- s/p PEG insertion, tolerating feeding well. 11. Hypoxia. RECOMMENDATIONS: - Monitor counts. - Continue lovenox for DVT. Started on coumadin, INR goal 2-3 - Check ferritin to r/o iron deficiency. - Appreciate Cardiology and Pulmonary recs - GI prophylaxis with PPI. - Antibiotics as needed. - Appreciate pulm/cc recs - Imaging has been reviewed. - Pain control. - Appreciate consultation!! Subjective Constitutional: Reports: no symptoms HEENT: Reports: no symptoms Cardiovascular: Reports: no symptoms Respiratory: Reports: no symptoms Gastrointestinal/Abdominal: Reports: no symptoms Genitourinary: Reports: no symptoms Neurologic/Psychiatric: Reports: no symptoms Endocrine: Reports: no symptoms Hematologic/Lymphatic: Reports: anemia Allergies: Coded Allergies: No Known Allergies (Unverified , 12/05/15) Subjective pt remains confused and nonverbal, tolerating tube feeding, afebrile, no bleeding Objective Last 24 Hour Vital Signs Date Time Temp Pulse Resp B/P Pulse Ox O2 Delivery O2 Flow Rate FiO2 12/30/16 12:15 97.6 74 20 130/69 96 Room Air 12/30/16 07:52 97.9 82 20 122/57 96 Room Air 12/30/16 07:00 93 Room Air 12/30/16 07:00 Room Air 21 12/30/16 04:00 98.8 79 20 96/59 91 12/30/16 00:00 98.8 85 129/87 12/29/16 21:45 97.8 12/29/16 20:00 97.5 94 22 120/71 94 12/29/16 19:36 92 Room Air 21 12/29/16 19:36 Room Air 21 12/29/16 16:00 97.8 82 19 132/76 96 Room Air Intake and Output 12/29/16 12/30/16 19:00 07:00 Intake Total 1877.416 ml 1515 ml Output Total 800 ml Balance 1077.416 ml 1515 ml Intake Free Water 300 ml 300 ml IV Total 917.416 ml 675 ml Tube Feeding 660 ml 540 ml Output Urine Total 800 ml Laboratory Tests 12/30/16 08:15: White Blood Count 8.0, Red Blood Count 4.20L, Hemoglobin 9.1L, Hematocrit 30.5L , Mean Corpuscular Volume 73L, Mean Corpuscular Hemoglobin 21.8L, Mean Corpuscular Hemoglobin Concent 30.0L, Red Cell Distribution Width 21.7H, Platelet Count 223, Mean Platelet Volume 9.8, Neutrophils (%) (Auto) 58.8, Lymphocytes (%) (Auto) 18.3L, Monocytes (%) (Auto) 11.9H, Eosinophils (%) (Auto ) 10.0H, Basophils (%) (Auto) 1.1, Sodium Level 140, Potassium Level 3.8, Chloride Level 103, Carbon Dioxide Level 25, Anion Gap 12, Blood Urea Nitrogen 12, Creatinine 0.9, Estimat Glomerular Filtration Rate > 60, Glucose Level 110H , Calcium Level 8.7, Vancomycin Level Trough 17.2H Height (Feet): 6 Height (Inches): 0.00 Weight (Pounds): 185 General Appearance: confused EENT: normal ENT inspection Neck: non-tender Cardiovascular: normal peripheral pulses Respiratory/Chest: chest wall non-tender Extremities: normal range of motion Edema: no edema noted Leg (L), no edema noted Leg (R), no edema noted Pedal (L) , no edema noted Pedal (R), no edema noted Generalized Neurologic: disoriented Skin: warm/dry Gilberto Freedman Dec 30, 2016 15:06
--- NOTE | 2016-12-30 15:13 | Cardiac Electrophysiology PN ---
Assessment/Plan Assessment/Plan 1. Hypotension, resolved. EF 60%. 2. Troponin leak 0.43 and 0.46 that are flat and nonspecific.Pt Nonverbal. ECG normal and EF 60% Off aspirin for severe anemia and hold off beta uli for hypotension. 3. Increase WBC >20. Normalized to 6.8 On IV abx per ID 4. Anemia with 3 gm drop in HB from 11 to 8. No obvious gi bleed. 5. Acute RCFV DVT on Lovenox. Resume Coumadin per pharmacy. DW Dr. Tesfaye. 6. Dysphagia.S/P PEG DW RN Subjective Subjective Comfortable in NAD. Sitter at bedside.Being fed by PEG.No events overnight. Objective Last 24 Hour Vital Signs Date Time Temp Pulse Resp B/P Pulse Ox O2 Delivery O2 Flow Rate FiO2 12/30/16 12:15 97.6 74 20 130/69 96 Room Air 12/30/16 07:52 97.9 82 20 122/57 96 Room Air 12/30/16 07:00 93 Room Air 21 12/30/16 07:00 Room Air 21 12/30/16 04:00 98.8 79 20 96/59 91 12/30/16 00:00 98.8 85 129/87 12/29/16 21:45 97.8 12/29/16 20:00 97.5 94 22 120/71 94 12/29/16 19:36 92 Room Air 21 12/29/16 19:36 Room Air 21 12/29/16 16:00 97.8 82 19 132/76 96 Room Air Intake and Output 12/29/16 12/30/16 19:00 07:00 Intake Total 1877.416 ml 1515 ml Output Total 800 ml Balance 1077.416 ml 1515 ml Intake Free Water 300 ml 300 ml IV Total 917.416 ml 675 ml Tube Feeding 660 ml 540 ml Output Urine Total 800 ml Laboratory Tests Test 12/30/16 08:15 White Blood Count 8.0 K/UL (4.8-10.8) Red Blood Count 4.20 M/UL (4.70-6.10) L Hemoglobin 9.1 G/DL (14.2-18.0) L Hematocrit 30.5 % (42.0-52.0) L Mean Corpuscular Volume 73 FL (80-99) L Mean Corpuscular Hemoglobin 21.8 PG (27.0-31.0) L Mean Corpuscular Hemoglobin Concent 30.0 G/DL (32.0-36.0) L Red Cell Distribution Width 21.7 % (11.6-14.8) H Platelet Count 223 K/UL (150-450) Mean Platelet Volume 9.8 FL (6.5-10.1) Neutrophils (%) (Auto) 58.8 % (45.0-75.0) Lymphocytes (%) (Auto) 18.3 % (20.0-45.0) L Monocytes (%) (Auto) 11.9 % (1.0-10.0) H Eosinophils (%) (Auto) 10.0 % (0.0-3.0) H Basophils (%) (Auto) 1.1 % (0.0-2.0) Sodium Level 140 mEQ/L (135-145) Potassium Level 3.8 mEQ/L (3.4-4.9) Chloride Level 103 mEQ/L (98-107) Carbon Dioxide Level 25 mEQ/L (20-30) Anion Gap 12 (5-15) Blood Urea Nitrogen 12 mg/dL (7-23) Creatinine 0.9 mg/dL (0.7-1.2) Estimat Glomerular Filtration Rate > 60 mL/min (>60) Glucose Level 110 mg/dL (74-106) H Calcium Level 8.7 mg/dL (8.6-10.2) Vancomycin Level Trough 17.2 ug/mL (5.0-12.0) H Objective HEAD AND NECK: No JVD. LUNGS: Coarse rhonchi. CARDIOVASCULAR: Regular S1 and S2 with no gallop or murmur. ABDOMEN: Soft. PEG in place EXTREMITIES: No pitting edema, lower extremities of contraction in position. VOLODYMYR HOSKINS Dec 30, 2016 15:13
--- NOTE | 2016-12-30 15:40 | Infectious Diseases Prog Note ---
Assessment/Plan Problems: (1) HCAP (healthcare-associated pneumonia) Assessment & Plan: with Acinetobacter baumannii pansensitive, improving , will continue levaquin ,and vancomycin for 14 days. EOT 01/04/17 (2) Severe sepsis with septic shock Assessment & Plan: with leukocytosis, improving with levaquin , and vancomycin. blood culture is negative .continue antibiotics for 14 days, EOT (3) CHF (congestive heart failure) Assessment & Plan: continue diuresis, cardiology is following (4) COPD (chronic obstructive pulmonary disease) Assessment & Plan: continue inhalers , with antibiotics, pulmonary is following (5) MAR (acute kidney injury) Assessment & Plan: due to sepsis, continue gentle hydration, adjust meds as per creatinine clearance .consult nephrology (6) Dysphagia Assessment & Plan: S/P PEG tube placement due to significant aspiration, GI is following Subjective ROS Limited/Unobtainable: Yes Allergies: Coded Allergies: No Known Allergies (Unverified , 12/05/15) Subjective he is up in bed, comfortable, had PEG tube placed , no cough or SOB , not in distress, afebrile. Objective Vital Signs Last 24 Hour Vital Signs Date Time Temp Pulse Resp B/P Pulse Ox O2 Delivery O2 Flow Rate FiO2 12/30/16 12:15 97.6 74 20 130/69 96 Room Air 12/30/16 07:52 97.9 82 20 122/57 96 Room Air 12/30/16 07:00 93 Room Air 21 12/30/16 07:00 Room Air 21 12/30/16 04:00 98.8 79 20 96/59 91 12/30/16 00:00 98.8 85 129/87 12/29/16 21:45 97.8 12/29/16 20:00 97.5 94 22 120/71 94 12/29/16 19:36 92 Room Air 21 12/29/16 19:36 Room Air 21 12/29/16 16:00 97.8 82 19 132/76 96 Room Air Height (Feet): 6 Height (Inches): 0.00 Weight (Pounds): 185 General Appearance: WD/WN, no acute distress HEENT: normocephalic, atraumatic, anicteric, mucous membranes moist, PERRL Respiratory/Chest: chest wall non-tender, normal breath sounds, no respiratory distress Cardiovascular: normal peripheral pulses, normal rate, regular rhythm, no gallop/murmur, no JVD Abdomen: normal bowel sounds, soft, non tender, no organomegaly, non distended , no mass, no scars Extremities: no cyanosis, no clubbing Laboratory Tests Test 12/30/16 08:15 White Blood Count 8.0 K/UL (4.8-10.8) Red Blood Count 4.20 M/UL (4.70-6.10) L Hemoglobin 9.1 G/DL (14.2-18.0) L Hematocrit 30.5 % (42.0-52.0) L Mean Corpuscular Volume 73 FL (80-99) L Mean Corpuscular Hemoglobin 21.8 PG (27.0-31.0) L Mean Corpuscular Hemoglobin Concent 30.0 G/DL (32.0-36.0) L Red Cell Distribution Width 21.7 % (11.6-14.8) H Platelet Count 223 K/UL (150-450) Mean Platelet Volume 9.8 FL (6.5-10.1) Neutrophils (%) (Auto) 58.8 % (45.0-75.0) Lymphocytes (%) (Auto) 18.3 % (20.0-45.0) L Monocytes (%) (Auto) 11.9 % (1.0-10.0) H Eosinophils (%) (Auto) 10.0 % (0.0-3.0) H Basophils (%) (Auto) 1.1 % (0.0-2.0) Sodium Level 140 mEQ/L (135-145) Potassium Level 3.8 mEQ/L (3.4-4.9) Chloride Level 103 mEQ/L (98-107) Carbon Dioxide Level 25 mEQ/L (20-30) Anion Gap 12 (5-15) Blood Urea Nitrogen 12 mg/dL (7-23) Creatinine 0.9 mg/dL (0.7-1.2) Estimat Glomerular Filtration Rate > 60 mL/min (>60) Glucose Level 110 mg/dL (74-106) H Calcium Level 8.7 mg/dL (8.6-10.2) Vancomycin Level Trough 17.2 ug/mL (5.0-12.0) H Current Medications Medications (Trade) Dose Ordered Sig/Gloria Route PRN Reason Start Time Stop Time Status Last Admin Dose Admin Acetaminophen (Tylenol) 650 mg Q4H PRN ORAL Mild Pain (Pain Scale 1-3) 12/24/16 08:00 01/23/17 07:59 Acetaminophen (Tylenol) 650 mg Q4H PRN RECTAL fever > 100.5F 12/24/16 08:00 01/23/17 07:59 Bisacodyl (Dulcolax) 10 mg DAILYPRN PRN RECTAL Constipation 12/24/16 08:00 01/23/17 07:59 Dextrose/Sodium Chloride 1,000 ml @ 50 mls/hr Q20H IV 12/24/16 07:15 01/23/17 07:14 12/30/16 02:57 Enoxaparin Sodium (Lovenox) 80 mg EVERY 12 HOURS SUBQ 12/24/16 09:00 01/23/17 08:59 12/30/16 09:31 Levofloxacin 100 ml @ 100 mls/hr Q24H IVPB 12/24/16 17:00 12/31/16 16:59 12/29/16 16:46 Lorazepam (Ativan 2mg/ml 1ml) 0.5 mg Q4H PRN IV For Anxiety 12/24/16 08:00 12/31/16 07:59 12/25/16 20:10 Magnesium Hydroxide (Mom) 30 ml HSPRN PRN ORAL Constipation 12/24/16 21:00 01/23/17 20:59 Morphine Sulfate (Morphine Sulfate) 2 mg Q6H PRN IVP Moderate Pain (Pain Scale 4-6) 12/24/16 08:00 12/31/16 07:59 12/29/16 21:15 Nitroglycerin (Ntg) 0.4 mg Q5M PRN SL Prn Chest Pain 12/24/16 08:00 Ondansetron HCl (Zofran) 4 mg Q6H PRN IVP Nausea & Vomiting 12/24/16 08:00 01/23/17 07:59 Pantoprazole (Protonix) 40 mg DAILY GT 12/30/16 09:00 01/29/17 08:59 12/30/16 09:23 Potassium Chloride (KCl 10% 20 mEq oral solution) 20 meq DAILY NG 12/29/16 09:00 01/28/17 08:59 12/30/16 09:23 Promethazine HCl/ Codeine (Phenergan with Codeine) 5 ml Q4H PRN ORAL For Cough 12/24/16 08:00 01/23/17 07:59 Temazepam (Restoril) 15 mg HSPRN PRN ORAL Insomnia 12/24/16 21:00 12/31/16 20:59 Vancomycin HCl (Vanco rx to dose) 1 ea DAILY PRN MISC PER RX PROTOCOL 12/24/16 09:00 01/23/17 08:59 Vancomycin HCl/ Dextrose (Vancomycin/D5W) 275 ml @ 183.708 mls/hr Q12HR IVPB 12/24/16 09:00 01/02/17 08:59 12/30/16 09:24 Warfarin Sodium (Coumadin per pharmacy) 1 ea DAILY PRN MISC Per rx protocol 12/30/16 15:15 01/29/17 15:14 Frankie Oneill M.D. Dec 30, 2016 15:40
[2016-12-30 16:15] VITALS: BP 110/65
[2016-12-30] MEDS ORDERED: Warfarin Sodium 5mg ORAL ONE (18:00)
[2016-12-30 19:00] VITALS: BP 143/87
[2016-12-30] MEDS: Morphine Sulfate 2mg/ml Inj IVP PRN (20:09)
--- NOTE | 2016-12-30 22:14 | Pulmonology Progress Note ---
Assessment/Plan Problems: (1) Severe sepsis (2) Pneumonia (3) Acute respiratory failure (4) Acute DVT (deep venous thrombosis) (5) MAR (acute kidney injury) (6) Anemia (7) Encephalopathy Assessment/Plan IV antibiotics check cultures swallow study noted, deep penetration with nectar check cultures tolerating feeding dvt prophylaxis all notes and labs reviewed Subjective Allergies: Coded Allergies: No Known Allergies (Unverified , 12/05/15) Objective Last 24 Hour Vital Signs Date Time Temp Pulse Resp B/P Pulse Ox O2 Delivery O2 Flow Rate FiO2 12/30/16 20:39 97.6 12/30/16 19:13 Room Air 21 12/30/16 19:12 93 Room Air 12/30/16 19:00 96.8 99 18 143/87 94 Room Air 12/30/16 16:15 97.6 87 19 110/65 97 Room Air 12/30/16 12:15 97.6 74 20 130/69 96 Room Air 12/30/16 07:52 97.9 82 20 122/57 96 Room Air 12/30/16 07:00 93 Room Air 12/30/16 07:00 Room Air 12/30/16 04:00 98.8 79 20 96/59 91 12/30/16 00:00 98.8 85 129/87 Intake and Output 12/29/16 12/30/16 19:00 07:00 Intake Total 1877.416 ml 1575 ml Output Total 800 ml Balance 1077.416 ml 1575 ml Intake Free Water 300 ml 300 ml IV Total 917.416 ml 675 ml Tube Feeding 660 ml 600 ml Output Urine Total 800 ml Objective General Appearance: WD/WN, no apparent distress Lines, tubes and drains: peripheral HEENT: normocephalic, atraumatic Neck: non-tender, supple Respiratory/Chest: chest wall non-tender, rhonchi - bilaterally Cardiovascular/Chest: normal peripheral pulses, normal rate Abdomen: normal bowel sounds Genitourinary/Rectal: normal genital exam Extremities: normal range of motion Laboratory Tests 12/30/16 08:15: White Blood Count 8.0, Red Blood Count 4.20L, Hemoglobin 9.1L, Hematocrit 30.5L , Mean Corpuscular Volume 73L, Mean Corpuscular Hemoglobin 21.8L, Mean Corpuscular Hemoglobin Concent 30.0L, Red Cell Distribution Width 21.7H, Platelet Count 223, Mean Platelet Volume 9.8, Neutrophils (%) (Auto) 58.8, Lymphocytes (%) (Auto) 18.3L, Monocytes (%) (Auto) 11.9H, Eosinophils (%) (Auto ) 10.0H, Basophils (%) (Auto) 1.1, Sodium Level 140, Potassium Level 3.8, Chloride Level 103, Carbon Dioxide Level 25, Anion Gap 12, Blood Urea Nitrogen 12, Creatinine 0.9, Estimat Glomerular Filtration Rate > 60, Glucose Level 110H , Calcium Level 8.7, Vancomycin Level Trough 17.2H Current Medications Medications (Trade) Dose Ordered Sig/Gloria Route PRN Reason Start Time Stop Time Status Last Admin Dose Admin Acetaminophen (Tylenol) 650 mg Q4H PRN ORAL Mild Pain (Pain Scale 1-3) 12/24/16 08:00 01/23/17 07:59 Acetaminophen (Tylenol) 650 mg Q4H PRN RECTAL fever > 100.5F 12/24/16 08:00 01/23/17 07:59 Bisacodyl (Dulcolax) 10 mg DAILYPRN PRN RECTAL Constipation 12/24/16 08:00 01/23/17 07:59 Dextrose/Sodium Chloride 1,000 ml @ 50 mls/hr Q20H IV 12/24/16 07:15 01/23/17 07:14 12/30/16 02:57 Enoxaparin Sodium (Lovenox) 80 mg EVERY 12 HOURS SUBQ 12/24/16 09:00 01/23/17 08:59 12/30/16 20:16 Levofloxacin 100 ml @ 100 mls/hr Q24H IVPB 12/24/16 17:00 12/31/16 16:59 12/30/16 17:18 Lorazepam (Ativan 2mg/ml 1ml) 0.5 mg Q4H PRN IV For Anxiety 12/24/16 08:00 12/31/16 07:59 12/25/16 20:10 Magnesium Hydroxide (Mom) 30 ml HSPRN PRN ORAL Constipation 12/24/16 21:00 01/23/17 20:59 Morphine Sulfate (Morphine Sulfate) 2 mg Q6H PRN IVP Moderate Pain (Pain Scale 4-6) 12/24/16 08:00 12/31/16 07:59 12/30/16 20:09 Nitroglycerin (Ntg) 0.4 mg Q5M PRN SL Prn Chest Pain 12/24/16 08:00 Ondansetron HCl (Zofran) 4 mg Q6H PRN IVP Nausea & Vomiting 12/24/16 08:00 01/23/17 07:59 Pantoprazole (Protonix) 40 mg DAILY GT 12/30/16 09:00 01/29/17 08:59 12/30/16 09:23 Potassium Chloride (KCl 10% 20 mEq oral solution) 20 meq DAILY NG 12/29/16 09:00 01/28/17 08:59 12/30/16 09:23 Promethazine HCl/ Codeine (Phenergan with Codeine) 5 ml Q4H PRN ORAL For Cough 12/24/16 08:00 01/23/17 07:59 Temazepam (Restoril) 15 mg HSPRN PRN ORAL Insomnia 12/24/16 21:00 12/31/16 20:59 Vancomycin HCl (Vanco rx to dose) 1 ea DAILY PRN MISC PER RX PROTOCOL 12/24/16 09:00 01/23/17 08:59 Vancomycin HCl/ Dextrose (Vancomycin/D5W) 275 ml @ 183.708 mls/hr Q12HR IVPB 12/24/16 09:00 01/02/17 08:59 12/30/16 20:09 Warfarin Sodium (Coumadin per pharmacy) 1 ea DAILY PRN MISC Per rx protocol 12/30/16 15:15 01/29/17 15:14 ALMA LINDO Dec 30, 2016 22:14
--- NOTE | 2016-12-30 22:49 | Nephrology Progress Note ---
Assessment/Plan Problem List: (1) Aspiration pneumonia (2) Anemia, chronic disease (3) Acute respiratory failure with hypoxia (4) Dehydration (5) MAR (acute kidney injury) (6) Schizophrenia (7) UTI (urinary tract infection) Subjective ROS Limited/Unobtainable: Yes Objective Objective Last 24 Hour Vital Signs Date Time Temp Pulse Resp B/P Pulse Ox O2 Delivery O2 Flow Rate FiO2 12/30/16 20:39 97.6 12/30/16 19:13 Room Air 21 12/30/16 19:12 93 Room Air 21 12/30/16 19:00 96.8 99 18 143/87 94 Room Air 12/30/16 16:15 97.6 87 19 110/65 97 Room Air 12/30/16 12:15 97.6 74 20 130/69 96 Room Air 12/30/16 07:52 97.9 82 20 122/57 96 Room Air 12/30/16 07:00 93 Room Air 12/30/16 07:00 Room Air 12/30/16 04:00 98.8 79 20 96/59 91 12/30/16 00:00 98.8 85 129/87 Intake and Output 12/29/16 12/30/16 19:00 07:00 Intake Total 1877.416 ml 1575 ml Output Total 800 ml Balance 1077.416 ml 1575 ml Intake Free Water 300 ml 300 ml IV Total 917.416 ml 675 ml Tube Feeding 660 ml 600 ml Output Urine Total 800 ml Laboratory Tests 12/30/16 08:15: White Blood Count 8.0, Red Blood Count 4.20L, Hemoglobin 9.1L, Hematocrit 30.5L , Mean Corpuscular Volume 73L, Mean Corpuscular Hemoglobin 21.8L, Mean Corpuscular Hemoglobin Concent 30.0L, Red Cell Distribution Width 21.7H, Platelet Count 223, Mean Platelet Volume 9.8, Neutrophils (%) (Auto) 58.8, Lymphocytes (%) (Auto) 18.3L, Monocytes (%) (Auto) 11.9H, Eosinophils (%) (Auto ) 10.0H, Basophils (%) (Auto) 1.1, Sodium Level 140, Potassium Level 3.8, Chloride Level 103, Carbon Dioxide Level 25, Anion Gap 12, Blood Urea Nitrogen 12, Creatinine 0.9, Estimat Glomerular Filtration Rate > 60, Glucose Level 110H , Calcium Level 8.7, Vancomycin Level Trough 17.2H Height (Feet): 6 Height (Inches): 0.00 Weight (Pounds): 185 BRIGID OLIVERA Dec 30, 2016 22:49
[2016-12-31] VITALS: BP 126/95
[2016-12-31 04:00] VITALS: BP 137/79
[2016-12-31 07:18] LABS: BASOPHILS % (AUTO) 0.7 % (0.0-2.0); EOSINOPHILS % (AUTO) 8.4 % (0.0-3.0); LYMPHOCYTES % (AUTO) 12.7 % (20.0-45.0); MEAN CORPUSCULAR HEMOGLOBIN 22.9 PG (27.0-31.0); MEAN CORPUSCULAR HGB CONC 31.1 G/DL (32.0-36.0); MEAN CORPUSCULAR VOLUME 74 FL (80-99); MEAN PLATELET VOLUME 9.3 FL (6.5-10.1); MONOCYTES % (AUTO) 8.3 % (1.0-10.0); PLATELET COUNT 234 K/UL (150-450); RED BLOOD COUNT 3.89 M/UL (4.70-6.10); RED CELL DISTRIBUTION WIDTH 22.7 % (11.6-14.8); WHITE BLOOD COUNT 8.9 K/UL (4.8-10.8)
[2016-12-31 07:21] LABS: INR 1.2 (0.9-1.1); PROTHROMBIN TIME 12.2 SEC (9.30-11.50)
[2016-12-31 08:25] LABS: ANION GAP 12 (5-15); CALCIUM 8.6 mg/dL (8.6-10.2); CARBON DIOXIDE 26 mEQ/L (20-30); CHLORIDE 103 mEQ/L (98-107); CREATININE 0.9 mg/dL (0.7-1.2); GLOMERULAR FILTRATION RATE > 60 mL/min (>60); HEMOLYSIS 2; SODIUM 141 mEQ/L (135-145)
[2016-12-31] MEDS: Pantoprazole 40mg pkt GT SCH (08:25)
[2016-12-31] MEDS: Vancomycin 750 MG in D5W 275 ML IVPB SCH ×2 (08:25→21:00)
[2016-12-31] MEDS: KCl 10% 20 mEq/15ml liquid NG SCH (08:25)
[2016-12-31 08:33] VITALS: BP 134/76
[2016-12-31] MEDS: Enoxaparin 80mg Inj SUBQ SCH ×2 (08:33→21:00)
[2016-12-31 08:45] LABS: FERRITIN 265 ng/mL (10-230)
--- NOTE | 2016-12-31 10:13 | General Progress Note ---
Assessment/Plan Problem List: (1) Hypernatremia ICD Codes: E87.0 - Hyperosmolality and hypernatremia SNOMED: 95259025 (2) Vomiting ICD Codes: R11.10 - Vomiting, unspecified SNOMED: 429093058 (3) Pancreatitis ICD Codes: K85.9 - Acute pancreatitis, unspecified SNOMED: 37724140 (4) Hiatal hernia ICD Codes: K44.9 - Diaphragmatic hernia without obstruction or gangrene SNOMED: 79657781 (5) Acid reflux ICD Codes: K21.9 - Gastro-esophageal reflux disease without esophagitis SNOMED: 128796838 (6) Lung nodule ICD Codes: R91.1 - Solitary pulmonary nodule SNOMED: 999397109 (7) LFTs abnormal ICD Codes: R79.89 - Other specified abnormal findings of blood chemistry SNOMED: 940902520 (8) HTN (hypertension) ICD Codes: I10 - Essential (primary) hypertension SNOMED: 13059835 (9) Acute kidney injury superimposed on chronic kidney disease ICD Codes: S37.009A - Unspecified injury of unspecified kidney, initial encounter; N18.9 - Chronic kidney disease, unspecified SNOMED: 47719490 (10) Aspiration pneumonia ICD Codes: J69.0 - Pneumonitis due to inhalation of food and vomit SNOMED: 882755368, 488333162 Qualifiers: Qualified Codes: J69.0 - Pneumonitis due to inhalation of food and vomit (11) Proteinuria ICD Codes: R80.9 - Proteinuria, unspecified SNOMED: 72909906, 995900176 Qualifiers: Qualified Codes: R80.9 - Proteinuria, unspecified (12) Anemia, chronic disease ICD Codes: D63.8 - Anemia in other chronic diseases classified elsewhere SNOMED: 154480511, 115306990 (13) Acute respiratory failure with hypoxia ICD Codes: J96.01 - Acute respiratory failure with hypoxia SNOMED: 12150748, 047122831 (14) Dehydration ICD Codes: E86.0 - Dehydration SNOMED: 51022342 (15) MAR (acute kidney injury) ICD Codes: N17.9 - Acute kidney failure, unspecified SNOMED: 28048601 (16) COPD (chronic obstructive pulmonary disease) ICD Codes: J44.9 - Chronic obstructive pulmonary disease, unspecified SNOMED: 18175200 (17) CHF (congestive heart failure) ICD Codes: I50.9 - Heart failure, unspecified SNOMED: 09059301 (18) Severe sepsis with septic shock ICD Codes: A41.9 - Sepsis, unspecified organism; R65.21 - Severe sepsis with septic shock SNOMED: 39949423 (19) HCAP (healthcare-associated pneumonia) ICD Codes: J18.9 - Pneumonia, unspecified organism SNOMED: 946828126 (20) Acute respiratory failure ICD Codes: J96.00 - Acute respiratory failure, unspecified whether with hypoxia or hypercapnia SNOMED: 87289620 (21) Schizophrenia ICD Codes: F20.9 - Schizophrenia, unspecified SNOMED: 08089320 (22) Gallstone ICD Codes: K80.20 - Calculus of gallbladder without cholecystitis without obstruction SNOMED: 407816221 (23) Anemia ICD Codes: D64.9 - Anemia, unspecified SNOMED: 884381945 (24) Osteoarthritis ICD Codes: M19.90 - Unspecified osteoarthritis, unspecified site SNOMED: 978838745 (25) Encephalopathy ICD Codes: G93.40 - Encephalopathy, unspecified SNOMED: 76557351, 659301106 (26) UTI (urinary tract infection) ICD Codes: N39.0 - Urinary tract infection, site not specified SNOMED: 31593498 (27) UTI (urinary tract infection) ICD Codes: N39.0 - Urinary tract infection, site not specified SNOMED: 36094160 (28) Elevated troponin ICD Codes: R74.8 - Abnormal levels of other serum enzymes SNOMED: 824895335, 199887136 (29) Pneumonia ICD Codes: J18.9 - Pneumonia, unspecified organism SNOMED: 489048709 Qualifiers: Qualified Codes: J18.1 - Lobar pneumonia, unspecified organism (30) Severe sepsis ICD Codes: A41.9 - Sepsis, unspecified organism; R65.20 - Severe sepsis without septic shock SNOMED: 78989280, 370880294 (31) Acute DVT (deep venous thrombosis) ICD Codes: I82.409 - Acute embolism and thrombosis of unspecified deep veins of unspecified lower extremity SNOMED: 208558077974640 Status: stable, progressing, tolerating diet Assessment/Plan o2 pulm tx abx dc plan Subjective Allergies: Coded Allergies: No Known Allergies (Unverified , 12/05/15) All Systems: reviewed and negative except above Subjective sleepy calm Objective Last 24 Hour Vital Signs Date Time Temp Pulse Resp B/P Pulse Ox O2 Delivery O2 Flow Rate FiO2 12/31/16 08:33 96.8 81 19 134/76 95 Room Air 12/31/16 06:45 94 Room Air 21 12/31/16 06:45 Room Air 21 12/31/16 04:00 97.7 92 18 137/79 97 Room Air 12/31/16 00:00 97.3 87 18 126/95 96 Room Air 12/30/16 20:39 97.6 12/30/16 19:13 Room Air 21 12/30/16 19:12 93 Room Air 21 12/30/16 19:00 96.8 99 18 143/87 94 Room Air 12/30/16 16:15 97.6 87 19 110/65 97 Room Air 12/30/16 12:15 97.6 74 20 130/69 96 Room Air Intake and Output 12/30/16 12/31/16 19:00 07:00 Intake Total 1010 ml 1745 ml Output Total 700 ml 800 ml Balance 310 ml 945 ml Intake Free Water 300 ml 300 ml IV Total 50 ml 725 ml Tube Feeding 660 ml 720 ml Output Urine Total 700 ml 800 ml Laboratory Tests 12/31/16 04:40: White Blood Count 8.9, Red Blood Count 3.89L, Hemoglobin 8.9L, Hematocrit 28.6L , Mean Corpuscular Volume 74L, Mean Corpuscular Hemoglobin 22.9L, Mean Corpuscular Hemoglobin Concent 31.1L, Red Cell Distribution Width 22.7H, Platelet Count 234, Mean Platelet Volume 9.3, Neutrophils (%) (Auto) 70.0, Lymphocytes (%) (Auto) 12.7L, Monocytes (%) (Auto) 8.3, Eosinophils (%) (Auto) 8.4H, Basophils (%) (Auto) 0.7, Prothrombin Time 12.2H, Prothromb Time International Ratio 1.2H, Sodium Level 141, Potassium Level 4.0, Chloride Level 103, Carbon Dioxide Level 26, Anion Gap 12, Blood Urea Nitrogen 14, Creatinine 0.9, Estimat Glomerular Filtration Rate > 60, Glucose Level 100, Calcium Level 8.6, Ferritin 265H Height (Feet): 6 Height (Inches): 0.00 Weight (Pounds): 185 General Appearance: lethargic EENT: normal ENT inspection Neck: normal alignment Cardiovascular: normal peripheral pulses, normal rate, regular rhythm Respiratory/Chest: chest wall non-tender, lungs clear, normal breath sounds Abdomen: normal bowel sounds, non tender, soft Extremities: normal inspection Edema: no edema noted Arm (L), no edema noted Arm (R), no edema noted Leg (L), no edema noted Leg (R), no edema noted Pedal (L), no edema noted Pedal (R), no edema noted Generalized Neurologic: motor weakness Skin: normal pigmentation, warm/dry ALONDRA SINGH Dec 31, 2016 10:13
--- NOTE | 2016-12-31 11:15 | General Progress Note ---
Assessment/Plan Problem List: (1) HTN (hypertension) ICD Codes: I10 - Essential (primary) hypertension SNOMED: 04807283 (2) Anemia ICD Codes: D64.9 - Anemia, unspecified SNOMED: 855224821 (3) Gallstone ICD Codes: K80.20 - Calculus of gallbladder without cholecystitis without obstruction SNOMED: 629519746 (4) Schizophrenia ICD Codes: F20.9 - Schizophrenia, unspecified SNOMED: 46632311 Assessment/Plan GTF GT care and flush dc planning per primary team Subjective ROS Limited/Unobtainable: No Allergies: Coded Allergies: No Known Allergies (Unverified , 12/05/15) Objective Last 24 Hour Vital Signs Date Time Temp Pulse Resp B/P Pulse Ox O2 Delivery O2 Flow Rate FiO2 12/31/16 08:33 96.8 81 19 134/76 95 Room Air 12/31/16 06:45 94 Room Air 12/31/16 06:45 Room Air 21 12/31/16 04:00 97.7 92 18 137/79 97 Room Air 12/31/16 00:00 97.3 87 18 126/95 96 Room Air 12/30/16 20:39 97.6 12/30/16 19:13 Room Air 21 12/30/16 19:12 93 Room Air 21 12/30/16 19:00 96.8 99 18 143/87 94 Room Air 12/30/16 16:15 97.6 87 19 110/65 97 Room Air 12/30/16 12:15 97.6 74 20 130/69 96 Room Air Intake and Output 12/30/16 12/31/16 19:00 07:00 Intake Total 1010 ml 1745 ml Output Total 700 ml 800 ml Balance 310 ml 945 ml Intake Free Water 300 ml 300 ml IV Total 50 ml 725 ml Tube Feeding 660 ml 720 ml Output Urine Total 700 ml 800 ml Laboratory Tests 12/31/16 04:40: White Blood Count 8.9, Red Blood Count 3.89L, Hemoglobin 8.9L, Hematocrit 28.6L , Mean Corpuscular Volume 74L, Mean Corpuscular Hemoglobin 22.9L, Mean Corpuscular Hemoglobin Concent 31.1L, Red Cell Distribution Width 22.7H, Platelet Count 234, Mean Platelet Volume 9.3, Neutrophils (%) (Auto) 70.0, Lymphocytes (%) (Auto) 12.7L, Monocytes (%) (Auto) 8.3, Eosinophils (%) (Auto) 8.4H, Basophils (%) (Auto) 0.7, Prothrombin Time 12.2H, Prothromb Time International Ratio 1.2H, Sodium Level 141, Potassium Level 4.0, Chloride Level 103, Carbon Dioxide Level 26, Anion Gap 12, Blood Urea Nitrogen 14, Creatinine 0.9, Estimat Glomerular Filtration Rate > 60, Glucose Level 100, Calcium Level 8.6, Ferritin 265H Height (Feet): 6 Height (Inches): 0.00 Weight (Pounds): 185 General Appearance: no apparent distress EENT: normal ENT inspection Neck: supple Cardiovascular: normal rate Respiratory/Chest: decreased breath sounds Abdomen: normal bowel sounds, non tender, soft Extremities: non-tender FRITZ DELANEY Dec 31, 2016 11:15
[2016-12-31 12:00] VITALS: BP 124/76
[2016-12-31] MEDS ORDERED: D5 1/2NS 1000ml IV ONE (14:39)
[2016-12-31] MEDS ORDERED: Sterile Water Irrig 1000ml IRRIG ONE (14:39)
[2016-12-31] MEDS ORDERED: Tubing IV Secondary IV ONE (14:39)
[2016-12-31] MEDS ORDERED: NS 275ml ONE (14:39)
[2016-12-31] MEDS: D5 1/2NS 1,000 ML IV SCH (16:16)
[2016-12-31 16:49] VITALS: BP 114/56
[2016-12-31] MEDS ORDERED: Warfarin Sodium 5mg ORAL ONE (17:00)
--- NOTE | 2016-12-31 17:13 | Cardiac Electrophysiology PN ---
Assessment/Plan Assessment/Plan 1. Hypotension, resolved. EF 60%. 2. Troponin leak 0.43 and 0.46 that are flat and nonspecific.Pt Nonverbal. ECG normal and EF 60% Off aspirin for severe anemia and hold off beta uli for hypotension. 3. Increase WBC >20. Normalized to 6.8 On IV abx per ID 4. Anemia with 3 gm drop in HB from 11 to 8. No obvious gi bleed. 5. Acute RCFV DVT on Lovenox and Coumadin per pharmacy. Follow up with Dr. Tesfaye. 6. Dysphagia.S/P PEG DW RN Subjective Subjective Comfortable in NAD. .Being fed by PEG.No events overnight. Objective Last 24 Hour Vital Signs Date Time Temp Pulse Resp B/P Pulse Ox O2 Delivery O2 Flow Rate FiO2 12/31/16 16:49 98.4 89 19 114/56 94 Room Air 12/31/16 12:00 96.4 91 32 124/76 94 Room Air 12/31/16 08:33 96.8 81 19 134/76 95 Room Air 12/31/16 06:45 94 Room Air 21 12/31/16 06:45 Room Air 21 12/31/16 04:00 97.7 92 18 137/79 97 Room Air 12/31/16 00:00 97.3 87 18 126/95 96 Room Air 12/30/16 20:39 97.6 12/30/16 19:13 Room Air 21 12/30/16 19:12 93 Room Air 21 12/30/16 19:00 96.8 99 18 143/87 94 Room Air Intake and Output 12/30/16 12/31/16 19:00 07:00 Intake Total 1010 ml 1745 ml Output Total 700 ml 800 ml Balance 310 ml 945 ml Intake Free Water 300 ml 300 ml IV Total 50 ml 725 ml Tube Feeding 660 ml 720 ml Output Urine Total 700 ml 800 ml Laboratory Tests Test 12/31/16 04:40 White Blood Count 8.9 K/UL (4.8-10.8) Red Blood Count 3.89 M/UL (4.70-6.10) L Hemoglobin 8.9 G/DL (14.2-18.0) L Hematocrit 28.6 % (42.0-52.0) L Mean Corpuscular Volume 74 FL (80-99) L Mean Corpuscular Hemoglobin 22.9 PG (27.0-31.0) L Mean Corpuscular Hemoglobin Concent 31.1 G/DL (32.0-36.0) L Red Cell Distribution Width 22.7 % (11.6-14.8) H Platelet Count 234 K/UL (150-450) Mean Platelet Volume 9.3 FL (6.5-10.1) Neutrophils (%) (Auto) 70.0 % (45.0-75.0) Lymphocytes (%) (Auto) 12.7 % (20.0-45.0) L Monocytes (%) (Auto) 8.3 % (1.0-10.0) Eosinophils (%) (Auto) 8.4 % (0.0-3.0) H Basophils (%) (Auto) 0.7 % (0.0-2.0) Prothrombin Time 12.2 SEC (9.30-11.50) H Prothromb Time International Ratio 1.2 (0.9-1.1) H Sodium Level 141 mEQ/L (135-145) Potassium Level 4.0 mEQ/L (3.4-4.9) Chloride Level 103 mEQ/L (98-107) Carbon Dioxide Level 26 mEQ/L (20-30) Anion Gap 12 (5-15) Blood Urea Nitrogen 14 mg/dL (7-23) Creatinine 0.9 mg/dL (0.7-1.2) Estimat Glomerular Filtration Rate > 60 mL/min (>60) Glucose Level 100 mg/dL (74-106) Calcium Level 8.6 mg/dL (8.6-10.2) Ferritin 265 ng/mL (10-230) H Objective HEAD AND NECK: No JVD. LUNGS: Coarse rhonchi. CARDIOVASCULAR: Regular S1 and S2 ABDOMEN: Soft. PEG in place EXTREMITIES: No pitting edema, lower extremities of contraction in position. VOLODYMYR HOSKINS Dec 31, 2016 17:13
--- NOTE | 2016-12-31 18:08 | General Progress Note ---
Assessment/Plan Assessment/Plan ASSESSMENT: 1. Right lower extremity deep venous thrombosis. Has a Right common femoral clot. Continue lovenox. Started on coumadin, INR goal 2-3 via peg 2. Anemia 2/2 hemodilution 3. Hematuria- better now 4. Anemia secondary to iron deficiency 5. Decrease in hemoglobin and hematocrit, rule out gastrointestinal bleed. 6. Leukocytosis has resolved d/t abx treatment. 7. Thrombocytopenia secondary to hemodilution as well- has improved, counts remain stable and WNL. 8. Elevated blood sugar. 9. Elevated troponin, has been seen by Cardiology service. 10. Dysphagia- s/p PEG insertion, tolerating feeding well. 11. Hypoxia. RECOMMENDATIONS: - Monitor counts. - Continue lovenox for DVT. Started on coumadin, INR goal 2-3 - Check ferritin to r/o iron deficiency- not iron deficient. - Appreciate Cardiology and Pulmonary recs - GI prophylaxis with PPI. - Antibiotics as needed. - Appreciate pulm/cc recs - Imaging has been reviewed. - Pain control. - Appreciate consultation!! Subjective ROS Limited/Unobtainable: Yes Constitutional: Reports: no symptoms HEENT: Reports: no symptoms Cardiovascular: Reports: no symptoms Respiratory: Reports: no symptoms Gastrointestinal/Abdominal: Reports: no symptoms Genitourinary: Reports: no symptoms Neurologic/Psychiatric: Reports: no symptoms Endocrine: Reports: no symptoms Hematologic/Lymphatic: Reports: anemia Allergies: Coded Allergies: No Known Allergies (Unverified , 12/05/15) Subjective NAD, afebrile, not bleeding, stable Objective Last 24 Hour Vital Signs Date Time Temp Pulse Resp B/P Pulse Ox O2 Delivery O2 Flow Rate FiO2 12/31/16 16:49 98.4 89 19 114/56 94 Room Air 12/31/16 12:00 96.4 91 32 124/76 94 Room Air 12/31/16 08:33 96.8 81 19 134/76 95 Room Air 12/31/16 06:45 94 Room Air 12/31/16 06:45 Room Air 12/31/16 04:00 97.7 92 18 137/79 97 Room Air 12/31/16 00:00 97.3 87 18 126/95 96 Room Air 12/30/16 20:39 97.6 12/30/16 19:13 Room Air 12/30/16 19:12 93 Room Air 21 12/30/16 19:00 96.8 99 18 143/87 94 Room Air Intake and Output 12/30/16 12/31/16 19:00 07:00 Intake Total 1010 ml 1745 ml Output Total 700 ml 800 ml Balance 310 ml 945 ml Intake Free Water 300 ml 300 ml IV Total 50 ml 725 ml Tube Feeding 660 ml 720 ml Output Urine Total 700 ml 800 ml Laboratory Tests 12/31/16 04:40: White Blood Count 8.9, Red Blood Count 3.89L, Hemoglobin 8.9L, Hematocrit 28.6L , Mean Corpuscular Volume 74L, Mean Corpuscular Hemoglobin 22.9L, Mean Corpuscular Hemoglobin Concent 31.1L, Red Cell Distribution Width 22.7H, Platelet Count 234, Mean Platelet Volume 9.3, Neutrophils (%) (Auto) 70.0, Lymphocytes (%) (Auto) 12.7L, Monocytes (%) (Auto) 8.3, Eosinophils (%) (Auto) 8.4H, Basophils (%) (Auto) 0.7, Prothrombin Time 12.2H, Prothromb Time International Ratio 1.2H, Sodium Level 141, Potassium Level 4.0, Chloride Level 103, Carbon Dioxide Level 26, Anion Gap 12, Blood Urea Nitrogen 14, Creatinine 0.9, Estimat Glomerular Filtration Rate > 60, Glucose Level 100, Calcium Level 8.6, Ferritin 265H Height (Feet): 6 Height (Inches): 0.00 Weight (Pounds): 185 General Appearance: WD/WN EENT: PERRL/EOMI Neck: non-tender Cardiovascular: normal peripheral pulses Respiratory/Chest: chest wall non-tender Abdomen: normal bowel sounds Edema: no edema noted Leg (L), no edema noted Leg (R), no edema noted Pedal (L) , no edema noted Pedal (R), no edema noted Generalized Skin: warm/dry Gilberto Freedman Dec 31, 2016 18:08
[2016-12-31 19:00] VITALS: BP 147/63
--- NOTE | 2016-12-31 22:09 | Nephrology Progress Note ---
Assessment/Plan Problem List: (1) Aspiration pneumonia (2) Anemia, chronic disease (3) Acute respiratory failure with hypoxia (4) Dehydration (5) MAR (acute kidney injury) (6) Schizophrenia (7) UTI (urinary tract infection) Plan Hypokalemia - resolved Monitor lytes Monitor H&H Monitor residuals Aspiration precaution Subjective ROS Limited/Unobtainable: Yes Subjective In no distress Objective Objective Last 24 Hour Vital Signs Date Time Temp Pulse Resp B/P Pulse Ox O2 Delivery O2 Flow Rate FiO2 12/31/16 19:00 98.4 88 19 147/63 97 Room Air 12/31/16 18:45 95 Room Air 12/31/16 18:45 Room Air 12/31/16 16:49 98.4 89 19 114/56 94 Room Air 12/31/16 12:00 96.4 91 32 124/76 94 Room Air 12/31/16 08:33 96.8 81 19 134/76 95 Room Air 12/31/16 06:45 94 Room Air 21 12/31/16 06:45 Room Air 21 12/31/16 04:00 97.7 92 18 137/79 97 Room Air 12/31/16 00:00 97.3 87 18 126/95 96 Room Air Intake and Output 12/30/16 12/31/16 18:59 06:59 Intake Total 960 ml 1795 ml Output Total 700 ml 800 ml Balance 260 ml 995 ml Intake Free Water 300 ml 300 ml IV Total 775 ml Tube Feeding 660 ml 720 ml Output Urine Total 700 ml 800 ml Laboratory Tests 12/31/16 04:40: White Blood Count 8.9, Red Blood Count 3.89L, Hemoglobin 8.9L, Hematocrit 28.6L , Mean Corpuscular Volume 74L, Mean Corpuscular Hemoglobin 22.9L, Mean Corpuscular Hemoglobin Concent 31.1L, Red Cell Distribution Width 22.7H, Platelet Count 234, Mean Platelet Volume 9.3, Neutrophils (%) (Auto) 70.0, Lymphocytes (%) (Auto) 12.7L, Monocytes (%) (Auto) 8.3, Eosinophils (%) (Auto) 8.4H, Basophils (%) (Auto) 0.7, Prothrombin Time 12.2H, Prothromb Time International Ratio 1.2H, Sodium Level 141, Potassium Level 4.0, Chloride Level 103, Carbon Dioxide Level 26, Anion Gap 12, Blood Urea Nitrogen 14, Creatinine 0.9, Estimat Glomerular Filtration Rate > 60, Glucose Level 100, Calcium Level 8.6, Ferritin 265H Height (Feet): 6 Height (Inches): 0.00 Weight (Pounds): 185 General Appearance: no apparent distress EENT: normal ENT inspection Neck: normal alignment, supple Cardiovascular: regular rhythm Respiratory/Chest: no respiratory distress Abdomen: non tender, soft, other - PEG Extremities: normal range of motion, non-tender Neurologic: disoriented BRIGID OLIVERA Dec 31, 2016 22:09
--- NOTE | 2016-12-31 23:06 | Infectious Diseases Prog Note ---
Assessment/Plan Problems: (1) Severe sepsis with septic shock Assessment & Plan: Present on admission. Resolved. Finish an empiric course of vancomycin IV for 14-days till 01/04/17. (2) HCAP (healthcare-associated pneumonia) Assessment & Plan: SCx grew Acinetobacter. Finish a 14-day course of levofloxacin till 01/04/17. (3) Acute respiratory failure with hypoxia Assessment & Plan: Improved. (4) COPD (chronic obstructive pulmonary disease) (5) MAR (acute kidney injury) (6) Dysphagia Subjective Allergies: Coded Allergies: No Known Allergies (Unverified , 12/05/15) Objective Vital Signs Last 24 Hour Vital Signs Date Time Temp Pulse Resp B/P Pulse Ox O2 Delivery O2 Flow Rate FiO2 12/31/16 19:00 98.4 88 19 147/63 97 Room Air 12/31/16 18:45 95 Room Air 12/31/16 18:45 Room Air 12/31/16 16:49 98.4 89 19 114/56 94 Room Air 12/31/16 12:00 96.4 91 32 124/76 94 Room Air 12/31/16 08:33 96.8 81 19 134/76 95 Room Air 12/31/16 06:45 94 Room Air 21 12/31/16 06:45 Room Air 21 12/31/16 04:00 97.7 92 18 137/79 97 Room Air 12/31/16 00:00 97.3 87 18 126/95 96 Room Air Height (Feet): 6 Height (Inches): 0.00 Weight (Pounds): 185 Laboratory Tests Test 12/31/16 04:40 White Blood Count 8.9 K/UL (4.8-10.8) Red Blood Count 3.89 M/UL (4.70-6.10) L Hemoglobin 8.9 G/DL (14.2-18.0) L Hematocrit 28.6 % (42.0-52.0) L Mean Corpuscular Volume 74 FL (80-99) L Mean Corpuscular Hemoglobin 22.9 PG (27.0-31.0) L Mean Corpuscular Hemoglobin Concent 31.1 G/DL (32.0-36.0) L Red Cell Distribution Width 22.7 % (11.6-14.8) H Platelet Count 234 K/UL (150-450) Mean Platelet Volume 9.3 FL (6.5-10.1) Neutrophils (%) (Auto) 70.0 % (45.0-75.0) Lymphocytes (%) (Auto) 12.7 % (20.0-45.0) L Monocytes (%) (Auto) 8.3 % (1.0-10.0) Eosinophils (%) (Auto) 8.4 % (0.0-3.0) H Basophils (%) (Auto) 0.7 % (0.0-2.0) Prothrombin Time 12.2 SEC (9.30-11.50) H Prothromb Time International Ratio 1.2 (0.9-1.1) H Sodium Level 141 mEQ/L (135-145) Potassium Level 4.0 mEQ/L (3.4-4.9) Chloride Level 103 mEQ/L (98-107) Carbon Dioxide Level 26 mEQ/L (20-30) Anion Gap 12 (5-15) Blood Urea Nitrogen 14 mg/dL (7-23) Creatinine 0.9 mg/dL (0.7-1.2) Estimat Glomerular Filtration Rate > 60 mL/min (>60) Glucose Level 100 mg/dL (74-106) Calcium Level 8.6 mg/dL (8.6-10.2) Ferritin 265 ng/mL (10-230) H Current Medications Medications (Trade) Dose Ordered Sig/Gloria Route PRN Reason Start Time Stop Time Status Last Admin Dose Admin Acetaminophen (Tylenol) 650 mg Q4H PRN ORAL Mild Pain (Pain Scale 1-3) 12/24/16 08:00 01/23/17 07:59 Acetaminophen (Tylenol) 650 mg Q4H PRN RECTAL fever > 100.5F 12/24/16 08:00 01/23/17 07:59 Bisacodyl (Dulcolax) 10 mg DAILYPRN PRN RECTAL Constipation 12/24/16 08:00 01/23/17 07:59 Dextrose/Sodium Chloride 1,000 ml @ 50 mls/hr Q20H IV 12/24/16 07:15 01/23/17 07:14 12/31/16 16:16 Enoxaparin Sodium (Lovenox) 80 mg EVERY 12 HOURS SUBQ 12/24/16 09:00 01/23/17 08:59 12/31/16 21:00 Levofloxacin 100 ml @ 100 mls/hr Q24H IVPB 12/24/16 17:00 01/04/17 16:59 12/31/16 16:16 Magnesium Hydroxide (Mom) 30 ml HSPRN PRN ORAL Constipation 12/24/16 21:00 01/23/17 20:59 Nitroglycerin (Ntg) 0.4 mg Q5M PRN SL Prn Chest Pain 12/24/16 08:00 Ondansetron HCl (Zofran) 4 mg Q6H PRN IVP Nausea & Vomiting 12/24/16 08:00 01/23/17 07:59 Pantoprazole (Protonix) 40 mg DAILY GT 12/30/16 09:00 01/29/17 08:59 12/31/16 08:25 Potassium Chloride (KCl 10% 20 mEq oral solution) 20 meq DAILY NG 12/29/16 09:00 01/28/17 08:59 12/31/16 08:25 Promethazine HCl/ Codeine (Phenergan with Codeine) 5 ml Q4H PRN ORAL For Cough 12/24/16 08:00 01/23/17 07:59 12/30/16 23:21 Vancomycin HCl (Vanco rx to dose) 1 ea DAILY PRN MISC PER RX PROTOCOL 12/24/16 09:00 01/23/17 08:59 Vancomycin HCl/ Dextrose (Vancomycin/D5W) 275 ml @ 183.708 mls/hr Q12HR IVPB 12/24/16 09:00 01/04/17 08:59 12/31/16 21:00 Warfarin Sodium (Coumadin per pharmacy) 1 ea DAILY PRN MISC Per rx protocol 12/30/16 15:15 01/29/17 15:14 VESNA FUENTES Dec 31, 2016 23:05
--- NOTE | 2016-12-31 23:55 | Pulmonology Progress Note ---
Assessment/Plan Problems: (1) Severe sepsis (2) Pneumonia (3) Acute respiratory failure (4) Acute DVT (deep venous thrombosis) (5) MAR (acute kidney injury) (6) Anemia (7) Encephalopathy Assessment/Plan IV antibiotics check cultures swallow study noted, deep penetration with nectar check cultures tolerating feeding dvt prophylaxis all notes and labs reviewed Subjective Allergies: Coded Allergies: No Known Allergies (Unverified , 12/05/15) Objective Last 24 Hour Vital Signs Date Time Temp Pulse Resp B/P Pulse Ox O2 Delivery O2 Flow Rate FiO2 12/31/16 19:00 98.4 88 19 147/63 97 Room Air 12/31/16 18:45 95 Room Air 12/31/16 18:45 Room Air 12/31/16 16:49 98.4 89 19 114/56 94 Room Air 12/31/16 12:00 96.4 91 32 124/76 94 Room Air 12/31/16 08:33 96.8 81 19 134/76 95 Room Air 12/31/16 06:45 94 Room Air 21 12/31/16 06:45 Room Air 21 12/31/16 04:00 97.7 92 18 137/79 97 Room Air 12/31/16 00:00 97.3 87 18 126/95 96 Room Air Intake and Output 12/30/16 12/31/16 19:00 07:00 Intake Total 1010 ml 1745 ml Output Total 700 ml 800 ml Balance 310 ml 945 ml Intake Free Water 300 ml 300 ml IV Total 50 ml 725 ml Tube Feeding 660 ml 720 ml Output Urine Total 700 ml 800 ml Objective General Appearance: WD/WN, no apparent distress Lines, tubes and drains: peripheral HEENT: normocephalic, atraumatic Neck: non-tender, supple Respiratory/Chest: chest wall non-tender, rhonchi - bilaterally Cardiovascular/Chest: normal peripheral pulses, normal rate Abdomen: normal bowel sounds Genitourinary/Rectal: normal genital exam Extremities: normal range of motion Laboratory Tests 12/31/16 04:40: White Blood Count 8.9, Red Blood Count 3.89L, Hemoglobin 8.9L, Hematocrit 28.6L , Mean Corpuscular Volume 74L, Mean Corpuscular Hemoglobin 22.9L, Mean Corpuscular Hemoglobin Concent 31.1L, Red Cell Distribution Width 22.7H, Platelet Count 234, Mean Platelet Volume 9.3, Neutrophils (%) (Auto) 70.0, Lymphocytes (%) (Auto) 12.7L, Monocytes (%) (Auto) 8.3, Eosinophils (%) (Auto) 8.4H, Basophils (%) (Auto) 0.7, Prothrombin Time 12.2H, Prothromb Time International Ratio 1.2H, Sodium Level 141, Potassium Level 4.0, Chloride Level 103, Carbon Dioxide Level 26, Anion Gap 12, Blood Urea Nitrogen 14, Creatinine 0.9, Estimat Glomerular Filtration Rate > 60, Glucose Level 100, Calcium Level 8.6, Ferritin 265H Current Medications Medications (Trade) Dose Ordered Sig/Gloria Route PRN Reason Start Time Stop Time Status Last Admin Dose Admin Acetaminophen (Tylenol) 650 mg Q4H PRN ORAL Mild Pain (Pain Scale 1-3) 12/24/16 08:00 01/23/17 07:59 Acetaminophen (Tylenol) 650 mg Q4H PRN RECTAL fever > 100.5F 12/24/16 08:00 01/23/17 07:59 Bisacodyl (Dulcolax) 10 mg DAILYPRN PRN RECTAL Constipation 12/24/16 08:00 01/23/17 07:59 Dextrose/Sodium Chloride 1,000 ml @ 50 mls/hr Q20H IV 12/24/16 07:15 01/23/17 07:14 12/31/16 16:16 Enoxaparin Sodium (Lovenox) 80 mg EVERY 12 HOURS SUBQ 12/24/16 09:00 01/23/17 08:59 12/31/16 21:00 Levofloxacin 100 ml @ 100 mls/hr Q24H IVPB 12/24/16 17:00 01/04/17 16:59 12/31/16 16:16 Magnesium Hydroxide (Mom) 30 ml HSPRN PRN ORAL Constipation 12/24/16 21:00 01/23/17 20:59 Nitroglycerin (Ntg) 0.4 mg Q5M PRN SL Prn Chest Pain 12/24/16 08:00 Ondansetron HCl (Zofran) 4 mg Q6H PRN IVP Nausea & Vomiting 12/24/16 08:00 01/23/17 07:59 Pantoprazole (Protonix) 40 mg DAILY GT 12/30/16 09:00 01/29/17 08:59 12/31/16 08:25 Potassium Chloride (KCl 10% 20 mEq oral solution) 20 meq DAILY NG 12/29/16 09:00 01/28/17 08:59 12/31/16 08:25 Promethazine HCl/ Codeine (Phenergan with Codeine) 5 ml Q4H PRN ORAL For Cough 12/24/16 08:00 01/23/17 07:59 12/30/16 23:21 Vancomycin HCl (Vanco rx to dose) 1 ea DAILY PRN MISC PER RX PROTOCOL 12/24/16 09:00 01/23/17 08:59 Vancomycin HCl/ Dextrose (Vancomycin/D5W) 275 ml @ 183.708 mls/hr Q12HR IVPB 12/24/16 09:00 01/04/17 08:59 12/31/16 21:00 Warfarin Sodium (Coumadin per pharmacy) 1 ea DAILY PRN MISC Per rx protocol 12/30/16 15:15 01/29/17 15:14 ALMA LINDO Dec 31, 2016 23:55
[2017-01-01] VITALS: BP 140/68
[2017-01-01 04:00] VITALS: BP 138/72
[2017-01-01 07:11] LABS: INR 1.4 (0.9-1.1)
[2017-01-01 07:19] LABS: ANION GAP 14 (5-15); CALCIUM 8.5 mg/dL (8.6-10.2); CARBON DIOXIDE 24 mEQ/L (20-30); CHLORIDE 100 mEQ/L (98-107); CREATININE 0.9 mg/dL (0.7-1.2); GLOMERULAR FILTRATION RATE > 60 mL/min (>60); HEMOLYSIS 1; SODIUM 138 mEQ/L (135-145)
--- NOTE | 2017-01-01 07:43 | General Progress Note ---
Assessment/Plan Problem List: (1) Hypernatremia ICD Codes: E87.0 - Hyperosmolality and hypernatremia SNOMED: 72680252 (2) Vomiting ICD Codes: R11.10 - Vomiting, unspecified SNOMED: 550656621 (3) Pancreatitis ICD Codes: K85.9 - Acute pancreatitis, unspecified SNOMED: 52685900 (4) Hiatal hernia ICD Codes: K44.9 - Diaphragmatic hernia without obstruction or gangrene SNOMED: 81206033 (5) Acid reflux ICD Codes: K21.9 - Gastro-esophageal reflux disease without esophagitis SNOMED: 298067783 (6) Lung nodule ICD Codes: R91.1 - Solitary pulmonary nodule SNOMED: 855065676 (7) LFTs abnormal ICD Codes: R79.89 - Other specified abnormal findings of blood chemistry SNOMED: 516795976 (8) HTN (hypertension) ICD Codes: I10 - Essential (primary) hypertension SNOMED: 99765424 (9) Acute kidney injury superimposed on chronic kidney disease ICD Codes: S37.009A - Unspecified injury of unspecified kidney, initial encounter; N18.9 - Chronic kidney disease, unspecified SNOMED: 71637874 (10) Aspiration pneumonia ICD Codes: J69.0 - Pneumonitis due to inhalation of food and vomit SNOMED: 914644795, 896357395 Qualifiers: Qualified Codes: J69.0 - Pneumonitis due to inhalation of food and vomit (11) Proteinuria ICD Codes: R80.9 - Proteinuria, unspecified SNOMED: 98339639, 848013739 Qualifiers: Qualified Codes: R80.9 - Proteinuria, unspecified (12) Anemia, chronic disease ICD Codes: D63.8 - Anemia in other chronic diseases classified elsewhere SNOMED: 618804022, 353259070 (13) Acute respiratory failure with hypoxia ICD Codes: J96.01 - Acute respiratory failure with hypoxia SNOMED: 82687237, 304693406 (14) Dehydration ICD Codes: E86.0 - Dehydration SNOMED: 47422254 (15) MAR (acute kidney injury) ICD Codes: N17.9 - Acute kidney failure, unspecified SNOMED: 56867167 (16) COPD (chronic obstructive pulmonary disease) ICD Codes: J44.9 - Chronic obstructive pulmonary disease, unspecified SNOMED: 32166091 (17) CHF (congestive heart failure) ICD Codes: I50.9 - Heart failure, unspecified SNOMED: 30948219 (18) Severe sepsis with septic shock ICD Codes: A41.9 - Sepsis, unspecified organism; R65.21 - Severe sepsis with septic shock SNOMED: 05351371 (19) HCAP (healthcare-associated pneumonia) ICD Codes: J18.9 - Pneumonia, unspecified organism SNOMED: 030612622 (20) Acute respiratory failure ICD Codes: J96.00 - Acute respiratory failure, unspecified whether with hypoxia or hypercapnia SNOMED: 30768630 (21) Schizophrenia ICD Codes: F20.9 - Schizophrenia, unspecified SNOMED: 13957277 (22) Gallstone ICD Codes: K80.20 - Calculus of gallbladder without cholecystitis without obstruction SNOMED: 843006169 (23) Anemia ICD Codes: D64.9 - Anemia, unspecified SNOMED: 755199359 (24) Osteoarthritis ICD Codes: M19.90 - Unspecified osteoarthritis, unspecified site SNOMED: 856376016 (25) Encephalopathy ICD Codes: G93.40 - Encephalopathy, unspecified SNOMED: 99117568, 267941246 (26) UTI (urinary tract infection) ICD Codes: N39.0 - Urinary tract infection, site not specified SNOMED: 84042395 (27) UTI (urinary tract infection) ICD Codes: N39.0 - Urinary tract infection, site not specified SNOMED: 03084439 (28) Elevated troponin ICD Codes: R74.8 - Abnormal levels of other serum enzymes SNOMED: 976925652, 598609229 (29) Pneumonia ICD Codes: J18.9 - Pneumonia, unspecified organism SNOMED: 605781392 Qualifiers: Qualified Codes: J18.1 - Lobar pneumonia, unspecified organism (30) Severe sepsis ICD Codes: A41.9 - Sepsis, unspecified organism; R65.20 - Severe sepsis without septic shock SNOMED: 66347181, 066264774 (31) Acute DVT (deep venous thrombosis) ICD Codes: I82.409 - Acute embolism and thrombosis of unspecified deep veins of unspecified lower extremity SNOMED: 927948950328876 Status: stable, progressing, tolerating diet Assessment/Plan o2 pulm tx abx cbc bmp am dc plan Subjective Constitutional: Reports: weakness Allergies: Coded Allergies: No Known Allergies (Unverified , 12/05/15) All Systems: reviewed and negative except above Subjective sleepy calm Objective Last 24 Hour Vital Signs Date Time Temp Pulse Resp B/P Pulse Ox O2 Delivery O2 Flow Rate FiO2 01/01/17 04:00 97.5 74 18 138/72 97 01/01/17 00:00 98.0 80 18 140/68 97 Room Air 12/31/16 19:00 98.4 88 19 147/63 97 Room Air 12/31/16 18:45 95 Room Air 12/31/16 18:45 Room Air 12/31/16 16:49 98.4 89 19 114/56 94 Room Air 12/31/16 12:00 96.4 91 32 124/76 94 Room Air 12/31/16 08:33 96.8 81 19 134/76 95 Room Air Intake and Output 12/31/16 01/01/17 19:00 07:00 Intake Total 1760.000 ml 475 ml Output Total 350 ml 1000 ml Balance 1410.000 ml -525 ml Intake Free Water 300 ml IV Total 800.000 ml 475 ml Tube Feeding 660 ml Output Urine Total 350 ml 1000 ml # Bowel Movements 1 1 Laboratory Tests 01/01/17 06:15: White Blood Count [Pending], Red Blood Count [Pending], Hemoglobin [Pending], Hematocrit [Pending], Mean Corpuscular Volume [Pending], Mean Corpuscular Hemoglobin [Pending], Mean Corpuscular Hemoglobin Concent [Pending], Red Cell Distribution Width [Pending], Platelet Count [Pending], Mean Platelet Volume [ Pending], Neutrophils (%) (Auto) [Pending], Lymphocytes (%) (Auto) [Pending], Monocytes (%) (Auto) [Pending], Eosinophils (%) (Auto) [Pending], Basophils (%) (Auto) [Pending], Prothrombin Time [Pending], Prothromb Time International Ratio [Pending], Sodium Level 138, Potassium Level 4.0, Chloride Level 100, Carbon Dioxide Level 24, Anion Gap 14, Blood Urea Nitrogen 14, Creatinine 0.9, Estimat Glomerular Filtration Rate > 60, Glucose Level 111H, Calcium Level 8.5L Height (Feet): 6 Height (Inches): 0.00 Weight (Pounds): 185 General Appearance: lethargic EENT: normal ENT inspection Neck: normal alignment Cardiovascular: normal peripheral pulses, normal rate, regular rhythm Respiratory/Chest: chest wall non-tender, lungs clear, normal breath sounds Abdomen: normal bowel sounds, non tender, soft Extremities: normal inspection Edema: no edema noted Arm (L), no edema noted Arm (R), no edema noted Leg (L), no edema noted Leg (R), no edema noted Pedal (L), no edema noted Pedal (R), no edema noted Generalized Neurologic: motor weakness Skin: normal pigmentation, warm/dry ALONDRA SINGH Jan 01, 2017 07:42
[2017-01-01 08:02] LABS: BASOPHILS % (AUTO) 1.8 % (0.0-2.0); EOSINOPHILS % (AUTO) 8.7 % (0.0-3.0); LYMPHOCYTES % (AUTO) 21.3 % (20.0-45.0); MEAN CORPUSCULAR HEMOGLOBIN 22.1 PG (27.0-31.0); MEAN CORPUSCULAR HGB CONC 30.4 G/DL (32.0-36.0); MEAN CORPUSCULAR VOLUME 73 FL (80-99); MEAN PLATELET VOLUME 10.5 FL (6.5-10.1); MONOCYTES % (AUTO) 15.7 % (1.0-10.0); NEUTROPHILS % (AUTO) 52.5 % (45.0-75.0); PLATELET COUNT 256 K/UL (150-450); RED BLOOD COUNT 4.12 M/UL (4.70-6.10); RED CELL DISTRIBUTION WIDTH 22.8 % (11.6-14.8); WHITE BLOOD COUNT 5.7 K/UL (4.8-10.8)
[2017-01-01 08:21] VITALS: BP 111/61
[2017-01-01] MEDS: Vancomycin 750 MG in D5W 275 ML IVPB SCH ×2 (08:23→21:18)
[2017-01-01] MEDS: KCl 10% 20 mEq/15ml liquid NG SCH (08:23)
[2017-01-01] MEDS: Enoxaparin 80mg Inj SUBQ SCH ×2 (08:34→21:20)
[2017-01-01] MEDS: Pantoprazole 40mg pkt GT SCH (09:57)
--- NOTE | 2017-01-01 10:11 | General Progress Note ---
Assessment/Plan Problem List: (1) HTN (hypertension) ICD Codes: I10 - Essential (primary) hypertension SNOMED: 50442816 (2) Anemia ICD Codes: D64.9 - Anemia, unspecified SNOMED: 573722837 (3) Gallstone ICD Codes: K80.20 - Calculus of gallbladder without cholecystitis without obstruction SNOMED: 172840182 (4) Schizophrenia ICD Codes: F20.9 - Schizophrenia, unspecified SNOMED: 77291626 Assessment/Plan GTF GT care and flush dc planning per primary team Subjective ROS Limited/Unobtainable: No Allergies: Coded Allergies: No Known Allergies (Unverified , 12/05/15) Objective Last 24 Hour Vital Signs Date Time Temp Pulse Resp B/P Pulse Ox O2 Delivery O2 Flow Rate FiO2 01/01/17 08:21 97.2 82 19 111/61 93 Room Air 01/01/17 04:00 97.5 74 18 138/72 97 01/01/17 00:00 98.0 80 18 140/68 97 Room Air 12/31/16 19:00 98.4 88 19 147/63 97 Room Air 12/31/16 18:45 95 Room Air 12/31/16 18:45 Room Air 12/31/16 16:49 98.4 89 19 114/56 94 Room Air 12/31/16 12:00 96.4 91 32 124/76 94 Room Air Intake and Output 12/31/16 01/01/17 19:00 07:00 Intake Total 1760.000 ml 475 ml Output Total 350 ml 1000 ml Balance 1410.000 ml -525 ml Intake Free Water 300 ml IV Total 800.000 ml 475 ml Tube Feeding 660 ml Output Urine Total 350 ml 1000 ml # Bowel Movements 1 1 Laboratory Tests 01/01/17 06:15: White Blood Count 5.7, Red Blood Count 4.12L, Hemoglobin 9.1L, Hematocrit 30.0L , Mean Corpuscular Volume 73L, Mean Corpuscular Hemoglobin 22.1L, Mean Corpuscular Hemoglobin Concent 30.4L, Red Cell Distribution Width 22.8H, Platelet Count 256, Mean Platelet Volume 10.5H, Neutrophils (%) (Auto) 52.5, Lymphocytes (%) (Auto) 21.3, Monocytes (%) (Auto) 15.7H, Eosinophils (%) (Auto) 8.7H, Basophils (%) (Auto) 1.8, Prothrombin Time 14.0H, Prothromb Time International Ratio 1.4H, Sodium Level 138, Potassium Level 4.0, Chloride Level 100, Carbon Dioxide Level 24, Anion Gap 14, Blood Urea Nitrogen 14, Creatinine 0.9, Estimat Glomerular Filtration Rate > 60, Glucose Level 111H, Calcium Level 8.5L Height (Feet): 6 Height (Inches): 0.00 Weight (Pounds): 185 General Appearance: no apparent distress EENT: normal ENT inspection Neck: supple Cardiovascular: normal rate Respiratory/Chest: decreased breath sounds Abdomen: normal bowel sounds, non tender, soft Extremities: non-tender FRITZ DELANEY Jan 01, 2017 10:11
--- NOTE | 2017-01-01 11:09 | Nephrology Progress Note ---
Assessment/Plan Problem List: (1) Hypokalemia Assessment: corrected. (2) Dehydration (3) Encounter for PEG (percutaneous endoscopic gastrostomy) (4) HTN (hypertension) (5) Schizophrenia (6) MAR (acute kidney injury) Assessment: resolved. (7) HCAP (healthcare-associated pneumonia) Assessment: improving. Plan cont to monitor labs. renal function and lytes stable. d/w Dr. Stoner. Subjective Subjective appears comfortable. awake/alert but confused. Objective Objective Last 24 Hour Vital Signs Date Time Temp Pulse Resp B/P Pulse Ox O2 Delivery O2 Flow Rate FiO2 01/01/17 08:21 97.2 82 19 111/61 93 Room Air 01/01/17 04:00 97.5 74 18 138/72 97 01/01/17 00:00 98.0 80 18 140/68 97 Room Air 12/31/16 19:00 98.4 88 19 147/63 97 Room Air 12/31/16 18:45 95 Room Air 12/31/16 18:45 Room Air 12/31/16 16:49 98.4 89 19 114/56 94 Room Air 12/31/16 12:00 96.4 91 32 124/76 94 Room Air Intake and Output 12/31/16 01/01/17 19:00 07:00 Intake Total 1760.000 ml 535 ml Output Total 350 ml 1000 ml Balance 1410.000 ml -465 ml Intake Free Water 300 ml IV Total 800.000 ml 475 ml Tube Feeding 660 ml 60 ml Output Urine Total 350 ml 1000 ml # Bowel Movements 1 1 Laboratory Tests 01/01/17 06:15: White Blood Count 5.7, Red Blood Count 4.12L, Hemoglobin 9.1L, Hematocrit 30.0L , Mean Corpuscular Volume 73L, Mean Corpuscular Hemoglobin 22.1L, Mean Corpuscular Hemoglobin Concent 30.4L, Red Cell Distribution Width 22.8H, Platelet Count 256, Mean Platelet Volume 10.5H, Neutrophils (%) (Auto) 52.5, Lymphocytes (%) (Auto) 21.3, Monocytes (%) (Auto) 15.7H, Eosinophils (%) (Auto) 8.7H, Basophils (%) (Auto) 1.8, Prothrombin Time 14.0H, Prothromb Time International Ratio 1.4H, Sodium Level 138, Potassium Level 4.0, Chloride Level 100, Carbon Dioxide Level 24, Anion Gap 14, Blood Urea Nitrogen 14, Creatinine 0.9, Estimat Glomerular Filtration Rate > 60, Glucose Level 111H, Calcium Level 8.5L Height (Feet): 6 Height (Inches): 0.00 Weight (Pounds): 185 General Appearance: no apparent distress Cardiovascular: normal rate, regular rhythm Respiratory/Chest: lungs clear Abdomen: non tender, soft Extremities: non-pitting Neurologic: alert Objective abd binder in place over GT site. KENROY LOPEZ Jan 01, 2017 11:09
[2017-01-01 12:45] VITALS: BP 131/56
[2017-01-01] MEDS ORDERED: D5 1/2NS 1000ml IV ONE ×2 (14:04→15:06)
[2017-01-01 16:02] VITALS: BP 106/68
[2017-01-01] MEDS: D5 1/2NS 1,000 ML IV SCH (16:10)
[2017-01-01] MEDS ORDERED: Warfarin Sodium 5mg ORAL ONE (17:00)
[2017-01-01 20:00] VITALS: BP 125/67
--- NOTE | 2017-01-01 22:45 | General Progress Note ---
Assessment/Plan Assessment/Plan ASSESSMENT: 1. Right lower extremity deep venous thrombosis. Has a Right common femoral clot. Continue lovenox. Started on coumadin, INR goal 2-3 via peg 2. Anemia 2/2 hemodilution 3. Hematuria- better now 4. Anemia secondary to iron deficiency 5. Decrease in hemoglobin and hematocrit, rule out gastrointestinal bleed. 6. Leukocytosis has resolved d/t abx treatment. 7. Thrombocytopenia secondary to hemodilution as well- has improved, counts remain stable and WNL. 8. Elevated blood sugar. 9. Elevated troponin, has been seen by Cardiology service. 10. Dysphagia- s/p PEG insertion, tolerating feeding well. 11. Hypoxia. RECOMMENDATIONS: - Monitor counts. - Continue lovenox for DVT. Started on coumadin, INR goal 2-3 - Check ferritin to r/o iron deficiency- not iron deficient. - Appreciate Cardiology and Pulmonary recs - GI prophylaxis with PPI. - Antibiotics as needed. - Appreciate pulm/cc recs - Imaging has been reviewed. - Pain control. - Appreciate consultation!! Subjective Constitutional: Reports: no symptoms HEENT: Reports: no symptoms Cardiovascular: Reports: no symptoms Respiratory: Reports: no symptoms Gastrointestinal/Abdominal: Reports: no symptoms Genitourinary: Reports: no symptoms Neurologic/Psychiatric: Reports: no symptoms Endocrine: Reports: no symptoms Hematologic/Lymphatic: Reports: anemia Allergies: Coded Allergies: No Known Allergies (Unverified , 12/05/15) Subjective comfortable, not bleeding, afebrile Objective Last 24 Hour Vital Signs Date Time Temp Pulse Resp B/P Pulse Ox O2 Delivery O2 Flow Rate FiO2 01/01/17 20:00 97.8 78 21 125/67 97 Room Air 01/01/17 16:02 97.0 70 19 106/68 95 Room Air 01/01/17 12:45 97.5 74 17 131/56 95 Room Air 01/01/17 08:21 97.2 82 19 111/61 93 Room Air 01/01/17 04:00 97.5 74 18 138/72 97 01/01/17 00:00 98.0 80 18 140/68 97 Room Air Intake and Output 12/31/16 01/01/17 19:00 07:00 Intake Total 1760.000 ml 535 ml Output Total 350 ml 1000 ml Balance 1410.000 ml -465 ml Intake Free Water 300 ml IV Total 800.000 ml 475 ml Tube Feeding 660 ml 60 ml Output Urine Total 350 ml 1000 ml # Bowel Movements 1 1 Laboratory Tests 01/01/17 06:15: White Blood Count 5.7, Red Blood Count 4.12L, Hemoglobin 9.1L, Hematocrit 30.0L , Mean Corpuscular Volume 73L, Mean Corpuscular Hemoglobin 22.1L, Mean Corpuscular Hemoglobin Concent 30.4L, Red Cell Distribution Width 22.8H, Platelet Count 256, Mean Platelet Volume 10.5H, Neutrophils (%) (Auto) 52.5, Lymphocytes (%) (Auto) 21.3, Monocytes (%) (Auto) 15.7H, Eosinophils (%) (Auto) 8.7H, Basophils (%) (Auto) 1.8, Prothrombin Time 14.0H, Prothromb Time International Ratio 1.4H, Sodium Level 138, Potassium Level 4.0, Chloride Level 100, Carbon Dioxide Level 24, Anion Gap 14, Blood Urea Nitrogen 14, Creatinine 0.9, Estimat Glomerular Filtration Rate > 60, Glucose Level 111H, Calcium Level 8.5L Height (Feet): 6 Height (Inches): 0.00 Weight (Pounds): 185 General Appearance: WD/WN EENT: PERRL/EOMI Neck: non-tender Cardiovascular: normal peripheral pulses Respiratory/Chest: chest wall non-tender Abdomen: normal bowel sounds Extremities: normal range of motion Edema: no edema noted Leg (L), no edema noted Leg (R), no edema noted Pedal (L) , no edema noted Pedal (R), no edema noted 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
--- NOTE | 2017-01-01 22:58 | Infectious Diseases Prog Note ---
Assessment/Plan Problems: (1) Severe sepsis with septic shock Assessment & Plan: Present on admission. Resolved. Finish an empiric course of vancomycin IV for 14-days till 01/04/17. (2) HCAP (healthcare-associated pneumonia) Assessment & Plan: SCx grew Acinetobacter. Finish a 14-day course of levofloxacin till 01/04/17. (3) Acute respiratory failure with hypoxia Assessment & Plan: Improved. (4) COPD (chronic obstructive pulmonary disease) (5) MAR (acute kidney injury) (6) Dysphagia Subjective Allergies: Coded Allergies: No Known Allergies (Unverified , 12/05/15) Objective Vital Signs Last 24 Hour Vital Signs Date Time Temp Pulse Resp B/P Pulse Ox O2 Delivery O2 Flow Rate FiO2 01/01/17 20:00 97.8 78 21 125/67 97 Room Air 01/01/17 16:02 97.0 70 19 106/68 95 Room Air 01/01/17 12:45 97.5 74 17 131/56 95 Room Air 01/01/17 08:21 97.2 82 19 111/61 93 Room Air 01/01/17 04:00 97.5 74 18 138/72 97 01/01/17 00:00 98.0 80 18 140/68 97 Room Air Height (Feet): 6 Height (Inches): 0.00 Weight (Pounds): 185 Laboratory Tests Test 01/01/17 06:15 White Blood Count 5.7 K/UL (4.8-10.8) Red Blood Count 4.12 M/UL (4.70-6.10) L Hemoglobin 9.1 G/DL (14.2-18.0) L Hematocrit 30.0 % (42.0-52.0) L Mean Corpuscular Volume 73 FL (80-99) L Mean Corpuscular Hemoglobin 22.1 PG (27.0-31.0) L Mean Corpuscular Hemoglobin Concent 30.4 G/DL (32.0-36.0) L Red Cell Distribution Width 22.8 % (11.6-14.8) H Platelet Count 256 K/UL (150-450) Mean Platelet Volume 10.5 FL (6.5-10.1) H Neutrophils (%) (Auto) 52.5 % (45.0-75.0) Lymphocytes (%) (Auto) 21.3 % (20.0-45.0) Monocytes (%) (Auto) 15.7 % (1.0-10.0) H Eosinophils (%) (Auto) 8.7 % (0.0-3.0) H Basophils (%) (Auto) 1.8 % (0.0-2.0) Prothrombin Time 14.0 SEC (9.30-11.50) H Prothromb Time International Ratio 1.4 (0.9-1.1) H Sodium Level 138 mEQ/L (135-145) Potassium Level 4.0 mEQ/L (3.4-4.9) Chloride Level 100 mEQ/L (98-107) Carbon Dioxide Level 24 mEQ/L (20-30) Anion Gap 14 (5-15) Blood Urea Nitrogen 14 mg/dL (7-23) Creatinine 0.9 mg/dL (0.7-1.2) Estimat Glomerular Filtration Rate > 60 mL/min (>60) Glucose Level 111 mg/dL (74-106) H Calcium Level 8.5 mg/dL (8.6-10.2) L Current Medications Medications (Trade) Dose Ordered Sig/Gloria Route PRN Reason Start Time Stop Time Status Last Admin Dose Admin Acetaminophen (Tylenol) 650 mg Q4H PRN ORAL Mild Pain (Pain Scale 1-3) 12/24/16 08:00 01/23/17 07:59 Acetaminophen (Tylenol) 650 mg Q4H PRN RECTAL fever > 100.5F 12/24/16 08:00 01/23/17 07:59 Bisacodyl (Dulcolax) 10 mg DAILYPRN PRN RECTAL Constipation 12/24/16 08:00 01/23/17 07:59 Dextrose/Sodium Chloride 1,000 ml @ 50 mls/hr Q20H IV 12/24/16 07:15 01/23/17 07:14 01/01/17 16:10 Enoxaparin Sodium (Lovenox) 80 mg EVERY 12 HOURS SUBQ 12/24/16 09:00 01/23/17 08:59 01/01/17 21:20 Levofloxacin (Levaquin) 500 mg Q24H ORAL 01/02/17 17:00 01/04/17 16:59 Magnesium Hydroxide (Mom) 30 ml HSPRN PRN ORAL Constipation 12/24/16 21:00 01/23/17 20:59 Nitroglycerin (Ntg) 0.4 mg Q5M PRN SL Prn Chest Pain 12/24/16 08:00 Ondansetron HCl (Zofran) 4 mg Q6H PRN IVP Nausea & Vomiting 12/24/16 08:00 01/23/17 07:59 Pantoprazole (Protonix) 40 mg DAILY GT 12/30/16 09:00 01/29/17 08:59 01/01/17 09:57 Potassium Chloride (KCl 10% 20 mEq oral solution) 20 meq DAILY NG 12/29/16 09:00 01/28/17 08:59 01/01/17 08:23 Promethazine HCl/ Codeine (Phenergan with Codeine) 5 ml Q4H PRN ORAL For Cough 12/24/16 08:00 01/23/17 07:59 12/30/16 23:21 Vancomycin HCl (Vanco rx to dose) 1 ea DAILY PRN MISC PER RX PROTOCOL 12/24/16 09:00 01/23/17 08:59 Vancomycin HCl/ Dextrose (Vancomycin/D5W) 275 ml @ 183.708 mls/hr Q12HR IVPB 12/24/16 09:00 01/04/17 08:59 01/01/17 21:18 Warfarin Sodium (Coumadin per pharmacy) 1 ea DAILY PRN MISC Per rx protocol 12/30/16 15:15 01/29/17 15:14 VESNA FUENTES Jan 01, 2017 22:58
--- NOTE | 2017-01-01 23:26 | Pulmonology Progress Note ---
Assessment/Plan Problems: (1) Severe sepsis (2) Pneumonia (3) Acute respiratory failure (4) Acute DVT (deep venous thrombosis) (5) MAR (acute kidney injury) (6) Anemia (7) Encephalopathy Assessment/Plan IV antibiotics check cultures swallow study noted, deep penetration with nectar check cultures tolerating feeding dvt prophylaxis all notes and labs reviewed Subjective Allergies: Coded Allergies: No Known Allergies (Unverified , 12/05/15) Objective Last 24 Hour Vital Signs Date Time Temp Pulse Resp B/P Pulse Ox O2 Delivery O2 Flow Rate FiO2 01/01/17 20:00 97.8 78 21 125/67 97 Room Air 01/01/17 16:02 97.0 70 19 106/68 95 Room Air 01/01/17 12:45 97.5 74 17 131/56 95 Room Air 01/01/17 08:21 97.2 82 19 111/61 93 Room Air 01/01/17 04:00 97.5 74 18 138/72 97 01/01/17 00:00 98.0 80 18 140/68 97 Room Air Intake and Output 12/31/16 01/01/17 19:00 07:00 Intake Total 1760.000 ml 535 ml Output Total 350 ml 1000 ml Balance 1410.000 ml -465 ml Intake Free Water 300 ml IV Total 800.000 ml 475 ml Tube Feeding 660 ml 60 ml Output Urine Total 350 ml 1000 ml # Bowel Movements 1 1 Objective General Appearance: WD/WN, no apparent distress Lines, tubes and drains: peripheral HEENT: normocephalic, atraumatic Neck: non-tender, supple Respiratory/Chest: chest wall non-tender, rhonchi - bilaterally Cardiovascular/Chest: normal peripheral pulses, normal rate Abdomen: normal bowel sounds Genitourinary/Rectal: normal genital exam Extremities: normal range of motion Laboratory Tests 01/01/17 06:15: White Blood Count 5.7, Red Blood Count 4.12L, Hemoglobin 9.1L, Hematocrit 30.0L , Mean Corpuscular Volume 73L, Mean Corpuscular Hemoglobin 22.1L, Mean Corpuscular Hemoglobin Concent 30.4L, Red Cell Distribution Width 22.8H, Platelet Count 256, Mean Platelet Volume 10.5H, Neutrophils (%) (Auto) 52.5, Lymphocytes (%) (Auto) 21.3, Monocytes (%) (Auto) 15.7H, Eosinophils (%) (Auto) 8.7H, Basophils (%) (Auto) 1.8, Prothrombin Time 14.0H, Prothromb Time International Ratio 1.4H, Sodium Level 138, Potassium Level 4.0, Chloride Level 100, Carbon Dioxide Level 24, Anion Gap 14, Blood Urea Nitrogen 14, Creatinine 0.9, Estimat Glomerular Filtration Rate > 60, Glucose Level 111H, Calcium Level 8.5L Current Medications Medications (Trade) Dose Ordered Sig/Gloria Route PRN Reason Start Time Stop Time Status Last Admin Dose Admin Acetaminophen (Tylenol) 650 mg Q4H PRN ORAL Mild Pain (Pain Scale 1-3) 12/24/16 08:00 01/23/17 07:59 Acetaminophen (Tylenol) 650 mg Q4H PRN RECTAL fever > 100.5F 12/24/16 08:00 01/23/17 07:59 Bisacodyl (Dulcolax) 10 mg DAILYPRN PRN RECTAL Constipation 12/24/16 08:00 01/23/17 07:59 Dextrose/Sodium Chloride 1,000 ml @ 50 mls/hr Q20H IV 12/24/16 07:15 01/23/17 07:14 01/01/17 16:10 Enoxaparin Sodium (Lovenox) 80 mg EVERY 12 HOURS SUBQ 12/24/16 09:00 01/23/17 08:59 01/01/17 21:20 Levofloxacin (Levaquin) 500 mg Q24H ORAL 01/02/17 17:00 01/04/17 16:59 Magnesium Hydroxide (Mom) 30 ml HSPRN PRN ORAL Constipation 12/24/16 21:00 01/23/17 20:59 Nitroglycerin (Ntg) 0.4 mg Q5M PRN SL Prn Chest Pain 12/24/16 08:00 Ondansetron HCl (Zofran) 4 mg Q6H PRN IVP Nausea & Vomiting 12/24/16 08:00 01/23/17 07:59 Pantoprazole (Protonix) 40 mg DAILY GT 12/30/16 09:00 01/29/17 08:59 01/01/17 09:57 Potassium Chloride (KCl 10% 20 mEq oral solution) 20 meq DAILY NG 12/29/16 09:00 01/28/17 08:59 01/01/17 08:23 Promethazine HCl/ Codeine (Phenergan with Codeine) 5 ml Q4H PRN ORAL For Cough 12/24/16 08:00 01/23/17 07:59 12/30/16 23:21 Vancomycin HCl (Vanco rx to dose) 1 ea DAILY PRN MISC PER RX PROTOCOL 12/24/16 09:00 01/23/17 08:59 Vancomycin HCl/ Dextrose (Vancomycin/D5W) 275 ml @ 183.708 mls/hr Q12HR IVPB 12/24/16 09:00 01/04/17 08:59 01/01/17 21:18 Warfarin Sodium (Coumadin per pharmacy) 1 ea DAILY PRN MISC Per rx protocol 12/30/16 15:15 01/29/17 15:14 ALMA LINDO Jan 01, 2017 23:26
[2017-01-02] VITALS: BP 104/64
[2017-01-02 04:00] VITALS: BP 104/56
[2017-01-02 07:26] LABS: ANION GAP 12 (5-15); CALCIUM 8.7 mg/dL (8.6-10.2); CARBON DIOXIDE 26 mEQ/L (20-30); CHLORIDE 100 mEQ/L (98-107); CREATININE 0.8 mg/dL (0.7-1.2); GLOMERULAR FILTRATION RATE > 60 mL/min (>60); HEMOLYSIS 6; POTASSIUM 3.9 mEQ/L (3.4-4.9); SODIUM 138 mEQ/L (135-145)
[2017-01-02 07:42] LABS: BASOPHILS % (AUTO) 2.3 % (0.0-2.0); EOSINOPHILS % (AUTO) 16.1 % (0.0-3.0); LYMPHOCYTES % (AUTO) 22.7 % (20.0-45.0); MEAN CORPUSCULAR HEMOGLOBIN 22.1 PG (27.0-31.0); MEAN CORPUSCULAR HGB CONC 30.1 G/DL (32.0-36.0); MEAN CORPUSCULAR VOLUME 74 FL (80-99); MEAN PLATELET VOLUME 8.6 FL (6.5-10.1); MONOCYTES % (AUTO) 19.6 % (1.0-10.0); NEUTROPHILS % (AUTO) 39.3 % (45.0-75.0); PLATELET COUNT 260 K/UL (150-450); RED CELL DISTRIBUTION WIDTH 23.7 % (11.6-14.8); WHITE BLOOD COUNT 4.9 K/UL (4.8-10.8)
[2017-01-02 07:45] LABS: INR 1.5 (0.9-1.1)
[2017-01-02 08:00] VITALS: BP 96/57
[2017-01-02] MEDS: Vancomycin 750 MG in D5W 275 ML IVPB SCH ×2 (08:38→20:22)
[2017-01-02] MEDS: Pantoprazole 40mg pkt GT SCH (08:39)
[2017-01-02] MEDS: KCl 10% 20 mEq/15ml liquid NG SCH (08:39)
[2017-01-02] MEDS: Enoxaparin 80mg Inj SUBQ SCH ×2 (08:44→20:23)
--- NOTE | 2017-01-02 10:14 | Infectious Diseases Prog Note ---
Assessment/Plan Problems: (1) Severe sepsis with septic shock Assessment & Plan: Present on admission. Resolved. Finish an empiric course of vancomycin IV for 14-days till 01/04/17. (2) HCAP (healthcare-associated pneumonia) Assessment & Plan: SCx grew Acinetobacter. Finish a 14-day course of levofloxacin till 01/04/17. (3) Acute respiratory failure with hypoxia Assessment & Plan: Improved. (4) COPD (chronic obstructive pulmonary disease) (5) MAR (acute kidney injury) (6) Dysphagia Subjective Allergies: Coded Allergies: No Known Allergies (Unverified , 12/05/15) Objective Vital Signs Last 24 Hour Vital Signs Date Time Temp Pulse Resp B/P Pulse Ox O2 Delivery O2 Flow Rate FiO2 01/02/17 08:00 96.8 64 18 96/57 92 01/02/17 04:00 97.5 68 20 104/56 96 Room Air 01/02/17 00:00 97.4 80 20 104/64 97 Room Air 01/01/17 20:00 97.8 78 21 125/67 97 Room Air 01/01/17 16:02 97.0 70 19 106/68 95 Room Air 01/01/17 12:45 97.5 74 17 131/56 95 Room Air Height (Feet): 6 Height (Inches): 0.00 Weight (Pounds): 185 Laboratory Tests Test 01/02/17 05:30 White Blood Count 4.9 K/UL (4.8-10.8) Red Blood Count 4.20 M/UL (4.70-6.10) L Hemoglobin 9.3 G/DL (14.2-18.0) L Hematocrit 30.9 % (42.0-52.0) L Mean Corpuscular Volume 74 FL (80-99) L Mean Corpuscular Hemoglobin 22.1 PG (27.0-31.0) L Mean Corpuscular Hemoglobin Concent 30.1 G/DL (32.0-36.0) L Red Cell Distribution Width 23.7 % (11.6-14.8) H Platelet Count 260 K/UL (150-450) Mean Platelet Volume 8.6 FL (6.5-10.1) Neutrophils (%) (Auto) 39.3 % (45.0-75.0) L Lymphocytes (%) (Auto) 22.7 % (20.0-45.0) Monocytes (%) (Auto) 19.6 % (1.0-10.0) H Eosinophils (%) (Auto) 16.1 % (0.0-3.0) H Basophils (%) (Auto) 2.3 % (0.0-2.0) H Prothrombin Time 15.0 SEC (9.30-11.50) H Prothromb Time International Ratio 1.5 (0.9-1.1) H Sodium Level 138 mEQ/L (135-145) Potassium Level 3.9 mEQ/L (3.4-4.9) Chloride Level 100 mEQ/L (98-107) Carbon Dioxide Level 26 mEQ/L (20-30) Anion Gap 12 (5-15) Blood Urea Nitrogen 17 mg/dL (7-23) Creatinine 0.8 mg/dL (0.7-1.2) Estimat Glomerular Filtration Rate > 60 mL/min (>60) Glucose Level 108 mg/dL (74-106) H Calcium Level 8.7 mg/dL (8.6-10.2) Current Medications Medications (Trade) Dose Ordered Sig/Gloria Route PRN Reason Start Time Stop Time Status Last Admin Dose Admin Acetaminophen (Tylenol) 650 mg Q4H PRN ORAL Mild Pain (Pain Scale 1-3) 12/24/16 08:00 01/23/17 07:59 Acetaminophen (Tylenol) 650 mg Q4H PRN RECTAL fever > 100.5F 12/24/16 08:00 01/23/17 07:59 Bisacodyl (Dulcolax) 10 mg DAILYPRN PRN RECTAL Constipation 12/24/16 08:00 01/23/17 07:59 Dextrose/Sodium Chloride 1,000 ml @ 50 mls/hr Q20H IV 12/24/16 07:15 01/23/17 07:14 01/01/17 16:10 Enoxaparin Sodium (Lovenox) 80 mg EVERY 12 HOURS SUBQ 12/24/16 09:00 01/23/17 08:59 01/02/17 08:44 Levofloxacin (Levaquin) 500 mg Q24H ORAL 01/02/17 17:00 01/04/17 16:59 Magnesium Hydroxide (Mom) 30 ml HSPRN PRN ORAL Constipation 12/24/16 21:00 01/23/17 20:59 Nitroglycerin (Ntg) 0.4 mg Q5M PRN SL Prn Chest Pain 12/24/16 08:00 Ondansetron HCl (Zofran) 4 mg Q6H PRN IVP Nausea & Vomiting 12/24/16 08:00 01/23/17 07:59 Pantoprazole (Protonix) 40 mg DAILY GT 12/30/16 09:00 01/29/17 08:59 01/02/17 08:39 Potassium Chloride (KCl 10% 20 mEq oral solution) 20 meq DAILY NG 12/29/16 09:00 01/28/17 08:59 01/02/17 08:39 Promethazine HCl/ Codeine (Phenergan with Codeine) 5 ml Q4H PRN ORAL For Cough 12/24/16 08:00 01/23/17 07:59 12/30/16 23:21 Vancomycin HCl (Vanco rx to dose) 1 ea DAILY PRN MISC PER RX PROTOCOL 12/24/16 09:00 01/23/17 08:59 Vancomycin HCl/ Dextrose (Vancomycin/D5W) 275 ml @ 183.708 mls/hr Q12HR IVPB 12/24/16 09:00 01/04/17 08:59 01/02/17 08:38 Warfarin Sodium (Coumadin per pharmacy) 1 ea DAILY PRN MISC Per rx protocol 12/30/16 15:15 01/29/17 15:14 VESNA FUENTES Jan 02, 2017 10:14
--- NOTE | 2017-01-02 10:56 | GI Progress Note ---
Assessment/Plan Problems: (1) Schizophrenia ICD Codes: F20.9 - Schizophrenia, unspecified SNOMED: 53364977 (2) Anemia ICD Codes: D64.9 - Anemia, unspecified SNOMED: 196199031 (3) Severe sepsis ICD Codes: A41.9 - Sepsis, unspecified organism; R65.20 - Severe sepsis without septic shock SNOMED: 06246360, 353445523 (4) Hiatal hernia ICD Codes: K44.9 - Diaphragmatic hernia without obstruction or gangrene SNOMED: 28796657 (5) Hypernatremia ICD Codes: E87.0 - Hyperosmolality and hypernatremia SNOMED: 30468052 (6) Encounter for PEG (percutaneous endoscopic gastrostomy) ICD Codes: Z43.1 - Encounter for attention to gastrostomy SNOMED: 219955401, 056477140 Status: stable, unchanged Status Narrative Discussed with Dr. Dinh. Assessment/Plan ok for DC per GI standpoint GTF GT care and flush ppi iron deficiency >>venofer fu labs Subjective Subjective limited, AMS Objective Last 24 Hour Vital Signs Date Time Temp Pulse Resp B/P Pulse Ox O2 Delivery O2 Flow Rate FiO2 01/02/17 08:00 96.8 64 18 96/57 92 01/02/17 04:00 97.5 68 20 104/56 96 Room Air 01/02/17 00:00 97.4 80 20 104/64 97 Room Air 01/01/17 20:00 97.8 78 21 125/67 97 Room Air 01/01/17 16:02 97.0 70 19 106/68 95 Room Air 01/01/17 12:45 97.5 74 17 131/56 95 Room Air Intake and Output 01/01/17 01/02/17 19:00 07:00 Intake Total 1735.000 ml 1355 ml Output Total 1000 ml Balance 1735.000 ml 355 ml Intake Free Water 300 ml 150 ml IV Total 775.000 ml 425 ml Tube Feeding 660 ml 180 ml Other 600 ml Output Urine Total 1000 ml Laboratory Tests Test 01/02/17 05:30 White Blood Count 4.9 K/UL (4.8-10.8) Red Blood Count 4.20 M/UL (4.70-6.10) L Hemoglobin 9.3 G/DL (14.2-18.0) L Hematocrit 30.9 % (42.0-52.0) L Mean Corpuscular Volume 74 FL (80-99) L Mean Corpuscular Hemoglobin 22.1 PG (27.0-31.0) L Mean Corpuscular Hemoglobin Concent 30.1 G/DL (32.0-36.0) L Red Cell Distribution Width 23.7 % (11.6-14.8) H Platelet Count 260 K/UL (150-450) Mean Platelet Volume 8.6 FL (6.5-10.1) Neutrophils (%) (Auto) 39.3 % (45.0-75.0) L Lymphocytes (%) (Auto) 22.7 % (20.0-45.0) Monocytes (%) (Auto) 19.6 % (1.0-10.0) H Eosinophils (%) (Auto) 16.1 % (0.0-3.0) H Basophils (%) (Auto) 2.3 % (0.0-2.0) H Prothrombin Time 15.0 SEC (9.30-11.50) H Prothromb Time International Ratio 1.5 (0.9-1.1) H Sodium Level 138 mEQ/L (135-145) Potassium Level 3.9 mEQ/L (3.4-4.9) Chloride Level 100 mEQ/L (98-107) Carbon Dioxide Level 26 mEQ/L (20-30) Anion Gap 12 (5-15) Blood Urea Nitrogen 17 mg/dL (7-23) Creatinine 0.8 mg/dL (0.7-1.2) Estimat Glomerular Filtration Rate > 60 mL/min (>60) Glucose Level 108 mg/dL (74-106) H Calcium Level 8.7 mg/dL (8.6-10.2) Height (Feet): 6 Height (Inches): 0.00 Weight (Pounds): 185 General Appearance: no apparent distress, alert Cardiovascular: normal rate Respiratory/Chest: normal breath sounds, no respiratory distress Abdominal Exam: site - c/d/i Beth Carver N.P. Jan 02, 2017 10:56
[2017-01-02] MEDS: D5 1/2NS 1,000 ML IV SCH (11:25)
[2017-01-02 12:00] VITALS: BP 118/74
--- NOTE | 2017-01-02 12:14 | General Progress Note ---
Assessment/Plan Problem List: (1) Hypernatremia ICD Codes: E87.0 - Hyperosmolality and hypernatremia SNOMED: 53602602 (2) Vomiting ICD Codes: R11.10 - Vomiting, unspecified SNOMED: 228533790 (3) Pancreatitis ICD Codes: K85.9 - Acute pancreatitis, unspecified SNOMED: 12444558 (4) Hiatal hernia ICD Codes: K44.9 - Diaphragmatic hernia without obstruction or gangrene SNOMED: 71440833 (5) Acid reflux ICD Codes: K21.9 - Gastro-esophageal reflux disease without esophagitis SNOMED: 765558192 (6) Lung nodule ICD Codes: R91.1 - Solitary pulmonary nodule SNOMED: 665489523 (7) LFTs abnormal ICD Codes: R79.89 - Other specified abnormal findings of blood chemistry SNOMED: 804790435 (8) HTN (hypertension) ICD Codes: I10 - Essential (primary) hypertension SNOMED: 15055967 (9) Acute kidney injury superimposed on chronic kidney disease ICD Codes: S37.009A - Unspecified injury of unspecified kidney, initial encounter; N18.9 - Chronic kidney disease, unspecified SNOMED: 78879446 (10) Aspiration pneumonia ICD Codes: J69.0 - Pneumonitis due to inhalation of food and vomit SNOMED: 526813685, 484298047 Qualifiers: Qualified Codes: J69.0 - Pneumonitis due to inhalation of food and vomit (11) Proteinuria ICD Codes: R80.9 - Proteinuria, unspecified SNOMED: 89156552, 029237570 Qualifiers: Qualified Codes: R80.9 - Proteinuria, unspecified (12) Anemia, chronic disease ICD Codes: D63.8 - Anemia in other chronic diseases classified elsewhere SNOMED: 654239554, 224623539 (13) Acute respiratory failure with hypoxia ICD Codes: J96.01 - Acute respiratory failure with hypoxia SNOMED: 52556729, 501603910 (14) Dehydration ICD Codes: E86.0 - Dehydration SNOMED: 79324017 (15) MAR (acute kidney injury) ICD Codes: N17.9 - Acute kidney failure, unspecified SNOMED: 04082006 (16) COPD (chronic obstructive pulmonary disease) ICD Codes: J44.9 - Chronic obstructive pulmonary disease, unspecified SNOMED: 84775743 (17) CHF (congestive heart failure) ICD Codes: I50.9 - Heart failure, unspecified SNOMED: 52254977 (18) Severe sepsis with septic shock ICD Codes: A41.9 - Sepsis, unspecified organism; R65.21 - Severe sepsis with septic shock SNOMED: 50012896 (19) HCAP (healthcare-associated pneumonia) ICD Codes: J18.9 - Pneumonia, unspecified organism SNOMED: 094103856 (20) Acute respiratory failure ICD Codes: J96.00 - Acute respiratory failure, unspecified whether with hypoxia or hypercapnia SNOMED: 31123335 (21) Schizophrenia ICD Codes: F20.9 - Schizophrenia, unspecified SNOMED: 08222887 (22) Gallstone ICD Codes: K80.20 - Calculus of gallbladder without cholecystitis without obstruction SNOMED: 571995658 (23) Anemia ICD Codes: D64.9 - Anemia, unspecified SNOMED: 021623977 (24) Osteoarthritis ICD Codes: M19.90 - Unspecified osteoarthritis, unspecified site SNOMED: 654768717 (25) Encephalopathy ICD Codes: G93.40 - Encephalopathy, unspecified SNOMED: 43313981, 440627836 (26) UTI (urinary tract infection) ICD Codes: N39.0 - Urinary tract infection, site not specified SNOMED: 12705264 (27) UTI (urinary tract infection) ICD Codes: N39.0 - Urinary tract infection, site not specified SNOMED: 58933870 (28) Elevated troponin ICD Codes: R74.8 - Abnormal levels of other serum enzymes SNOMED: 026987911, 258868476 (29) Pneumonia ICD Codes: J18.9 - Pneumonia, unspecified organism SNOMED: 153223000 Qualifiers: Qualified Codes: J18.1 - Lobar pneumonia, unspecified organism (30) Severe sepsis ICD Codes: A41.9 - Sepsis, unspecified organism; R65.20 - Severe sepsis without septic shock SNOMED: 72044191, 325016076 (31) Acute DVT (deep venous thrombosis) ICD Codes: I82.409 - Acute embolism and thrombosis of unspecified deep veins of unspecified lower extremity SNOMED: 814649652014574 Status: stable, progressing, tolerating diet Assessment/Plan o2 pulm tx abx dc plan Subjective Constitutional: Reports: weakness Allergies: Coded Allergies: No Known Allergies (Unverified , 12/05/15) All Systems: reviewed and negative except above Subjective sleepy calm Objective Last 24 Hour Vital Signs Date Time Temp Pulse Resp B/P Pulse Ox O2 Delivery O2 Flow Rate FiO2 01/02/17 08:00 96.8 64 18 96/57 92 01/02/17 04:00 97.5 68 20 104/56 96 Room Air 01/02/17 00:00 97.4 80 20 104/64 97 Room Air 01/01/17 20:00 97.8 78 21 125/67 97 Room Air 01/01/17 16:02 97.0 70 19 106/68 95 Room Air 01/01/17 12:45 97.5 74 17 131/56 95 Room Air Intake and Output 01/01/17 01/02/17 19:00 07:00 Intake Total 1735.000 ml 1355 ml Output Total 1000 ml Balance 1735.000 ml 355 ml Intake Free Water 300 ml 150 ml IV Total 775.000 ml 425 ml Tube Feeding 660 ml 180 ml Other 600 ml Output Urine Total 1000 ml Laboratory Tests 01/02/17 05:30: White Blood Count 4.9, Red Blood Count 4.20L, Hemoglobin 9.3L, Hematocrit 30.9L , Mean Corpuscular Volume 74L, Mean Corpuscular Hemoglobin 22.1L, Mean Corpuscular Hemoglobin Concent 30.1L, Red Cell Distribution Width 23.7H, Platelet Count 260, Mean Platelet Volume 8.6, Neutrophils (%) (Auto) 39.3L, Lymphocytes (%) (Auto) 22.7, Monocytes (%) (Auto) 19.6H, Eosinophils (%) (Auto) 16.1H, Basophils (%) (Auto) 2.3H, Prothrombin Time 15.0H, Prothromb Time International Ratio 1.5H, Sodium Level 138, Potassium Level 3.9, Chloride Level 100, Carbon Dioxide Level 26, Anion Gap 12, Blood Urea Nitrogen 17, Creatinine 0.8, Estimat Glomerular Filtration Rate > 60, Glucose Level 108H, Calcium Level 8.7 Height (Feet): 6 Height (Inches): 0.00 Weight (Pounds): 185 General Appearance: lethargic EENT: normal ENT inspection Neck: normal alignment Cardiovascular: normal peripheral pulses, normal rate, regular rhythm Respiratory/Chest: chest wall non-tender, lungs clear, normal breath sounds Abdomen: normal bowel sounds, non tender, soft Extremities: normal inspection Edema: no edema noted Arm (L), no edema noted Arm (R), no edema noted Leg (L), no edema noted Leg (R), no edema noted Pedal (L), no edema noted Pedal (R), no edema noted Generalized Neurologic: motor weakness Skin: normal pigmentation, warm/dry ALONDRA SINGH Jan 02, 2017 12:14
[2017-01-02 16:00] VITALS: BP 117/69
--- NOTE | 2017-01-02 16:35 | Cardiac Electrophysiology PN ---
Assessment/Plan Assessment/Plan 1. Hypotension, resolved. EF 60%. 2. Troponin leak 0.43 and 0.46 that are flat and nonspecific.Pt Nonverbal. ECG normal and EF 60% Off aspirin for severe anemia and hold off beta uli for hypotension. 3. Increase WBC >20. Normalized to 6.8 On IV abx per ID 4. Anemia with 3 gm drop in HB from 11 to 8. No obvious gi bleed. 5. Acute RCFV DVT on Lovenox and Coumadin per pharmacy. Follow up with Dr. Tesfaye. INR still subtherapeutic. 6. Dysphagia.S/P PEG 7. Hospital acquired PNA and sepsis. On iv ABx per dr Funes. MARY KAY RN Subjective Subjective Comfortable in NAD.No events overnight.IV abx and Lovenox.DC planning in progress. Objective Last 24 Hour Vital Signs Date Time Temp Pulse Resp B/P Pulse Ox O2 Delivery O2 Flow Rate FiO2 01/02/17 12:00 98.0 74 17 118/74 96 Room Air 01/02/17 08:00 96.8 64 18 96/57 92 01/02/17 04:00 97.5 68 20 104/56 96 Room Air 01/02/17 00:00 97.4 80 20 104/64 97 Room Air 01/01/17 20:00 97.8 78 21 125/67 97 Room Air Intake and Output 01/01/17 01/02/17 19:00 07:00 Intake Total 1735.000 ml 1355 ml Output Total 1000 ml Balance 1735.000 ml 355 ml Intake Free Water 300 ml 150 ml IV Total 775.000 ml 425 ml Tube Feeding 660 ml 180 ml Other 600 ml Output Urine Total 1000 ml Laboratory Tests Test 01/02/17 05:30 White Blood Count 4.9 K/UL (4.8-10.8) Red Blood Count 4.20 M/UL (4.70-6.10) L Hemoglobin 9.3 G/DL (14.2-18.0) L Hematocrit 30.9 % (42.0-52.0) L Mean Corpuscular Volume 74 FL (80-99) L Mean Corpuscular Hemoglobin 22.1 PG (27.0-31.0) L Mean Corpuscular Hemoglobin Concent 30.1 G/DL (32.0-36.0) L Red Cell Distribution Width 23.7 % (11.6-14.8) H Platelet Count 260 K/UL (150-450) Mean Platelet Volume 8.6 FL (6.5-10.1) Neutrophils (%) (Auto) 39.3 % (45.0-75.0) L Lymphocytes (%) (Auto) 22.7 % (20.0-45.0) Monocytes (%) (Auto) 19.6 % (1.0-10.0) H Eosinophils (%) (Auto) 16.1 % (0.0-3.0) H Basophils (%) (Auto) 2.3 % (0.0-2.0) H Prothrombin Time 15.0 SEC (9.30-11.50) H Prothromb Time International Ratio 1.5 (0.9-1.1) H Sodium Level 138 mEQ/L (135-145) Potassium Level 3.9 mEQ/L (3.4-4.9) Chloride Level 100 mEQ/L (98-107) Carbon Dioxide Level 26 mEQ/L (20-30) Anion Gap 12 (5-15) Blood Urea Nitrogen 17 mg/dL (7-23) Creatinine 0.8 mg/dL (0.7-1.2) Estimat Glomerular Filtration Rate > 60 mL/min (>60) Glucose Level 108 mg/dL (74-106) H Calcium Level 8.7 mg/dL (8.6-10.2) Objective HEAD AND NECK: No JVD. LUNGS: Coarse rhonchi. CARDIOVASCULAR: Regular S1 and S2 ABDOMEN: Soft. PEG in place EXTREMITIES: No pitting edema, lower extremities of contraction in position. VOLODYMYR HOSKINS Jan 02, 2017 16:35
--- NOTE | 2017-01-02 18:34 | Nephrology Progress Note ---
Assessment/Plan Problem List: (1) Aspiration pneumonia (2) Dehydration (3) MAR (acute kidney injury) (4) CHF (congestive heart failure) (5) Encephalopathy (6) Schizophrenia (7) Anemia, chronic disease Plan Continue current treatment Monitor lytes Monitor counts Monitor GT residuals Subjective ROS Limited/Unobtainable: Yes Subjective In bed, in no apparent distress Objective Objective Last 24 Hour Vital Signs Date Time Temp Pulse Resp B/P Pulse Ox O2 Delivery O2 Flow Rate FiO2 01/02/17 16:00 98.1 74 18 117/69 98 Room Air 01/02/17 12:00 98.0 74 17 118/74 96 Room Air 01/02/17 08:00 96.8 64 18 96/57 92 01/02/17 04:00 97.5 68 20 104/56 96 Room Air 01/02/17 00:00 97.4 80 20 104/64 97 Room Air 01/01/17 20:00 97.8 78 21 125/67 97 Room Air Intake and Output 01/01/17 01/02/17 19:00 07:00 Intake Total 1735.000 ml 1355 ml Output Total 1000 ml Balance 1735.000 ml 355 ml Intake Free Water 300 ml 150 ml IV Total 775.000 ml 425 ml Tube Feeding 660 ml 180 ml Other 600 ml Output Urine Total 1000 ml Laboratory Tests 01/02/17 05:30: White Blood Count 4.9, Red Blood Count 4.20L, Hemoglobin 9.3L, Hematocrit 30.9L , Mean Corpuscular Volume 74L, Mean Corpuscular Hemoglobin 22.1L, Mean Corpuscular Hemoglobin Concent 30.1L, Red Cell Distribution Width 23.7H, Platelet Count 260, Mean Platelet Volume 8.6, Neutrophils (%) (Auto) 39.3L, Lymphocytes (%) (Auto) 22.7, Monocytes (%) (Auto) 19.6H, Eosinophils (%) (Auto) 16.1H, Basophils (%) (Auto) 2.3H, Prothrombin Time 15.0H, Prothromb Time International Ratio 1.5H, Sodium Level 138, Potassium Level 3.9, Chloride Level 100, Carbon Dioxide Level 26, Anion Gap 12, Blood Urea Nitrogen 17, Creatinine 0.8, Estimat Glomerular Filtration Rate > 60, Glucose Level 108H, Calcium Level 8.7 Height (Feet): 6 Height (Inches): 0.00 Weight (Pounds): 185 General Appearance: no apparent distress, confused EENT: normal ENT inspection Neck: supple Cardiovascular: regular rhythm, no JVD Respiratory/Chest: no respiratory distress Abdomen: no organomegaly, other - PEG Genitourinary/Rectal: other - [place] Extremities: no calf tenderness Neurologic: disoriented Celena French N.P. Jan 02, 2017 18:34
[2017-01-02] MEDS: Levofloxacin 500mg tab ORAL SCH (18:39)
[2017-01-02 20:00] VITALS: BP 118/77
--- NOTE | 2017-01-02 21:18 | General Progress Note ---
Assessment/Plan Assessment/Plan ASSESSMENT: 1. Right lower extremity deep venous thrombosis. Has a Right common femoral clot. Continue lovenox. Started on coumadin, INR goal 2-3 via peg 2. Anemia 2/2 hemodilution 3. Hematuria- better now 4. Anemia secondary to iron deficiency 5. Decrease in hemoglobin and hematocrit, rule out gastrointestinal bleed. 6. Leukocytosis has resolved d/t abx treatment. 7. Thrombocytopenia secondary to hemodilution as well- has improved, counts remain stable and WNL. 8. Elevated blood sugar. 9. Elevated troponin, has been seen by Cardiology service. 10. Dysphagia- s/p PEG insertion, tolerating feeding well. 11. Hypoxia. RECOMMENDATIONS: - Monitor counts. - Continue lovenox for DVT. Started on coumadin, INR goal 2-3 - Check ferritin to r/o iron deficiency- not iron deficient. - Appreciate Cardiology and Pulmonary recs - GI prophylaxis with PPI. - Antibiotics as needed. - Appreciate pulm/cc recs - Imaging has been reviewed. - Pain control. - Appreciate consultation!! Subjective ROS Limited/Unobtainable: Yes Constitutional: Reports: no symptoms HEENT: Reports: no symptoms Cardiovascular: Reports: no symptoms Respiratory: Reports: no symptoms Gastrointestinal/Abdominal: Reports: no symptoms Genitourinary: Reports: no symptoms Neurologic/Psychiatric: Reports: no symptoms Endocrine: Reports: no symptoms Hematologic/Lymphatic: Reports: anemia Allergies: Coded Allergies: No Known Allergies (Unverified , 12/05/15) Subjective NAD, no fevers, chills, night sweats, no bleeding events, A/Ox1 Objective Last 24 Hour Vital Signs Date Time Temp Pulse Resp B/P Pulse Ox O2 Delivery O2 Flow Rate FiO2 01/02/17 20:00 97.9 83 22 118/77 98 Room Air 01/02/17 16:00 98.1 74 18 117/69 98 Room Air 01/02/17 12:00 98.0 74 17 118/74 96 Room Air 01/02/17 08:00 96.8 64 18 96/57 92 01/02/17 04:00 97.5 68 20 104/56 96 Room Air 01/02/17 00:00 97.4 80 20 104/64 97 Room Air Intake and Output 01/01/17 01/02/17 19:00 07:00 Intake Total 1735.000 ml 1355 ml Output Total 1000 ml Balance 1735.000 ml 355 ml Intake Free Water 300 ml 150 ml IV Total 775.000 ml 425 ml Tube Feeding 660 ml 180 ml Other 600 ml Output Urine Total 1000 ml Laboratory Tests 01/02/17 05:30: White Blood Count 4.9, Red Blood Count 4.20L, Hemoglobin 9.3L, Hematocrit 30.9L , Mean Corpuscular Volume 74L, Mean Corpuscular Hemoglobin 22.1L, Mean Corpuscular Hemoglobin Concent 30.1L, Red Cell Distribution Width 23.7H, Platelet Count 260, Mean Platelet Volume 8.6, Neutrophils (%) (Auto) 39.3L, Lymphocytes (%) (Auto) 22.7, Monocytes (%) (Auto) 19.6H, Eosinophils (%) (Auto) 16.1H, Basophils (%) (Auto) 2.3H, Prothrombin Time 15.0H, Prothromb Time International Ratio 1.5H, Sodium Level 138, Potassium Level 3.9, Chloride Level 100, Carbon Dioxide Level 26, Anion Gap 12, Blood Urea Nitrogen 17, Creatinine 0.8, Estimat Glomerular Filtration Rate > 60, Glucose Level 108H, Calcium Level 8.7 Height (Feet): 6 Height (Inches): 0.00 Weight (Pounds): 185 General Appearance: WD/WN EENT: PERRL/EOMI Neck: non-tender Cardiovascular: normal peripheral pulses Respiratory/Chest: chest wall non-tender Abdomen: normal bowel sounds Extremities: normal range of motion Edema: no edema noted Leg (L), no edema noted Leg (R), no edema noted Pedal (L) , no edema noted Pedal (R), no edema noted 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
--- NOTE | 2017-01-02 23:13 | Pulmonology Progress Note ---
Assessment/Plan Problems: (1) Severe sepsis (2) Pneumonia (3) Acute respiratory failure (4) Acute DVT (deep venous thrombosis) (5) MAR (acute kidney injury) (6) Anemia (7) Encephalopathy Assessment/Plan IV antibiotics check cultures swallow study noted, deep penetration with nectar check cultures tolerating feeding dvt prophylaxis all notes and labs reviewed Subjective Allergies: Coded Allergies: No Known Allergies (Unverified , 12/05/15) Objective Last 24 Hour Vital Signs Date Time Temp Pulse Resp B/P Pulse Ox O2 Delivery O2 Flow Rate FiO2 01/02/17 20:00 97.9 83 22 118/77 98 Room Air 01/02/17 16:00 98.1 74 18 117/69 98 Room Air 01/02/17 12:00 98.0 74 17 118/74 96 Room Air 01/02/17 08:00 96.8 64 18 96/57 92 01/02/17 04:00 97.5 68 20 104/56 96 Room Air 01/02/17 00:00 97.4 80 20 104/64 97 Room Air Intake and Output 01/01/17 01/02/17 19:00 07:00 Intake Total 1735.000 ml 1355 ml Output Total 1000 ml Balance 1735.000 ml 355 ml Intake Free Water 300 ml 150 ml IV Total 775.000 ml 425 ml Tube Feeding 660 ml 180 ml Other 600 ml Output Urine Total 1000 ml Objective General Appearance: WD/WN, no apparent distress Lines, tubes and drains: peripheral HEENT: normocephalic, atraumatic Neck: non-tender, supple Respiratory/Chest: chest wall non-tender, rhonchi - bilaterally Cardiovascular/Chest: normal peripheral pulses, normal rate Abdomen: normal bowel sounds Genitourinary/Rectal: normal genital exam Extremities: normal range of motion Laboratory Tests 01/02/17 05:30: White Blood Count 4.9, Red Blood Count 4.20L, Hemoglobin 9.3L, Hematocrit 30.9L , Mean Corpuscular Volume 74L, Mean Corpuscular Hemoglobin 22.1L, Mean Corpuscular Hemoglobin Concent 30.1L, Red Cell Distribution Width 23.7H, Platelet Count 260, Mean Platelet Volume 8.6, Neutrophils (%) (Auto) 39.3L, Lymphocytes (%) (Auto) 22.7, Monocytes (%) (Auto) 19.6H, Eosinophils (%) (Auto) 16.1H, Basophils (%) (Auto) 2.3H, Prothrombin Time 15.0H, Prothromb Time International Ratio 1.5H, Sodium Level 138, Potassium Level 3.9, Chloride Level 100, Carbon Dioxide Level 26, Anion Gap 12, Blood Urea Nitrogen 17, Creatinine 0.8, Estimat Glomerular Filtration Rate > 60, Glucose Level 108H, Calcium Level 8.7 Current Medications Medications (Trade) Dose Ordered Sig/Gloria Route PRN Reason Start Time Stop Time Status Last Admin Dose Admin Acetaminophen (Tylenol) 650 mg Q4H PRN ORAL Mild Pain (Pain Scale 1-3) 12/24/16 08:00 01/23/17 07:59 Acetaminophen (Tylenol) 650 mg Q4H PRN RECTAL fever > 100.5F 12/24/16 08:00 01/23/17 07:59 Bisacodyl (Dulcolax) 10 mg DAILYPRN PRN RECTAL Constipation 12/24/16 08:00 01/23/17 07:59 Dextrose/Sodium Chloride 1,000 ml @ 50 mls/hr Q20H IV 12/24/16 07:15 01/23/17 07:14 01/02/17 11:25 Enoxaparin Sodium (Lovenox) 80 mg EVERY 12 HOURS SUBQ 12/24/16 09:00 01/23/17 08:59 01/02/17 20:23 Levofloxacin (Levaquin) 500 mg Q24H ORAL 01/02/17 17:00 01/04/17 16:59 01/02/17 18:39 Magnesium Hydroxide (Mom) 30 ml HSPRN PRN ORAL Constipation 12/24/16 21:00 01/23/17 20:59 Nitroglycerin (Ntg) 0.4 mg Q5M PRN SL Prn Chest Pain 12/24/16 08:00 Ondansetron HCl (Zofran) 4 mg Q6H PRN IVP Nausea & Vomiting 12/24/16 08:00 01/23/17 07:59 Pantoprazole (Protonix) 40 mg DAILY GT 12/30/16 09:00 01/29/17 08:59 01/02/17 08:39 Potassium Chloride (KCl 10% 20 mEq oral solution) 20 meq DAILY NG 12/29/16 09:00 01/28/17 08:59 01/02/17 08:39 Promethazine HCl/ Codeine (Phenergan with Codeine) 5 ml Q4H PRN ORAL For Cough 12/24/16 08:00 01/23/17 07:59 12/30/16 23:21 Vancomycin HCl (Vanco rx to dose) 1 ea DAILY PRN MISC PER RX PROTOCOL 12/24/16 09:00 01/23/17 08:59 Vancomycin HCl/ Dextrose (Vancomycin/D5W) 275 ml @ 183.708 mls/hr Q12HR IVPB 12/24/16 09:00 01/04/17 08:59 01/02/17 20:22 Warfarin Sodium (Coumadin per pharmacy) 1 ea DAILY PRN MISC Per rx protocol 12/30/16 15:15 01/29/17 15:14 ALMA LINDO Jan 02, 2017 23:13
[2017-01-03] VITALS: BP 123/74
[2017-01-03 04:00] VITALS: BP 134/79
[2017-01-03] MEDS: D5 1/2NS 1,000 ML IV SCH (05:01)
[2017-01-03 07:09] LABS: ANION GAP 10 (5-15); CALCIUM 8.8 mg/dL (8.6-10.2); CARBON DIOXIDE 27 mEQ/L (20-30); CHLORIDE 102 mEQ/L (98-107); CREATININE 0.8 mg/dL (0.7-1.2); GLOMERULAR FILTRATION RATE > 60 mL/min (>60); HEMOLYSIS 0; POTASSIUM 4.5 mEQ/L (3.4-4.9); SODIUM 139 mEQ/L (135-145)
[2017-01-03 07:29] LABS: BASOPHILS % (AUTO) 1.9 % (0.0-2.0); EOSINOPHILS % (AUTO) 11.7 % (0.0-3.0); MEAN CORPUSCULAR HEMOGLOBIN 22.8 PG (27.0-31.0); MEAN CORPUSCULAR HGB CONC 30.8 G/DL (32.0-36.0); MEAN CORPUSCULAR VOLUME 74 FL (80-99); MEAN PLATELET VOLUME 10.5 FL (6.5-10.1); MONOCYTES % (AUTO) 13.8 % (1.0-10.0); NEUTROPHILS % (AUTO) 51.6 % (45.0-75.0); PLATELET COUNT 303 K/UL (150-450); RED BLOOD COUNT 4.27 M/UL (4.70-6.10); RED CELL DISTRIBUTION WIDTH 23.4 % (11.6-14.8); WHITE BLOOD COUNT 5.9 K/UL (4.8-10.8)
[2017-01-03] MEDS: Vancomycin 750 MG in D5W 275 ML IVPB SCH ×2 (09:00→20:31)
--- NOTE | 2017-01-03 09:45 | GI Progress Note ---
Assessment/Plan Problems: (1) Schizophrenia ICD Codes: F20.9 - Schizophrenia, unspecified SNOMED: 86183297 (2) Anemia ICD Codes: D64.9 - Anemia, unspecified SNOMED: 149520694 (3) Severe sepsis ICD Codes: A41.9 - Sepsis, unspecified organism; R65.20 - Severe sepsis without septic shock SNOMED: 68833827, 427843219 (4) Hiatal hernia ICD Codes: K44.9 - Diaphragmatic hernia without obstruction or gangrene SNOMED: 88441358 (5) Hypernatremia ICD Codes: E87.0 - Hyperosmolality and hypernatremia SNOMED: 72217936 (6) Encounter for PEG (percutaneous endoscopic gastrostomy) ICD Codes: Z43.1 - Encounter for attention to gastrostomy SNOMED: 511461138, 312962636 Status: stable, unchanged Status Narrative Discussed with Dr. Dinh. Assessment/Plan ok for DC per GI standpoint GTF GT care and flush ppi iron deficiency >>venofer fu labs Subjective Subjective limited, AMS Objective Last 24 Hour Vital Signs Date Time Temp Pulse Resp B/P Pulse Ox O2 Delivery O2 Flow Rate FiO2 01/03/17 08:52 98.3 80 21 97 Room Air 01/03/17 04:00 96.5 72 20 134/79 95 Room Air 01/03/17 00:00 98.2 66 20 123/74 95 Room Air 01/02/17 20:00 97.9 83 22 118/77 98 Room Air 01/02/17 16:00 98.1 74 18 117/69 98 Room Air 01/02/17 12:00 98.0 74 17 118/74 96 Room Air Intake and Output 01/02/17 01/03/17 19:00 07:00 Intake Total 1770.000 ml 1795.000 ml Output Total 1400 ml 850 ml Balance 370.000 ml 945.000 ml Intake Free Water 350 ml 300 ml IV Total 700.000 ml 775.000 ml Tube Feeding 720 ml 720 ml Output Urine Total 1400 ml 850 ml # Bowel Movements 1 Laboratory Tests Test 01/03/17 06:15 White Blood Count 5.9 K/UL (4.8-10.8) Red Blood Count 4.27 M/UL (4.70-6.10) L Hemoglobin 9.7 G/DL (14.2-18.0) L Hematocrit 31.5 % (42.0-52.0) L Mean Corpuscular Volume 74 FL (80-99) L Mean Corpuscular Hemoglobin 22.8 PG (27.0-31.0) L Mean Corpuscular Hemoglobin Concent 30.8 G/DL (32.0-36.0) L Red Cell Distribution Width 23.4 % (11.6-14.8) H Platelet Count 303 K/UL (150-450) Mean Platelet Volume 10.5 FL (6.5-10.1) H Neutrophils (%) (Auto) 51.6 % (45.0-75.0) Lymphocytes (%) (Auto) 21.0 % (20.0-45.0) Monocytes (%) (Auto) 13.8 % (1.0-10.0) H Eosinophils (%) (Auto) 11.7 % (0.0-3.0) H Basophils (%) (Auto) 1.9 % (0.0-2.0) Sodium Level 139 mEQ/L (135-145) Potassium Level 4.5 mEQ/L (3.4-4.9) Chloride Level 102 mEQ/L (98-107) Carbon Dioxide Level 27 mEQ/L (20-30) Anion Gap 10 (5-15) Blood Urea Nitrogen 18 mg/dL (7-23) Creatinine 0.8 mg/dL (0.7-1.2) Estimat Glomerular Filtration Rate > 60 mL/min (>60) Glucose Level 101 mg/dL (74-106) Calcium Level 8.8 mg/dL (8.6-10.2) Height (Feet): 6 Height (Inches): 0.00 Weight (Pounds): 185 General Appearance: no apparent distress, alert Cardiovascular: normal rate Respiratory/Chest: normal breath sounds, no respiratory distress Abdominal Exam: normal bowel sounds, non tender, soft, GT site - c/d/i Beth Carver N.P. Jan 03, 2017 09:45
[2017-01-03] MEDS: KCl 10% 20 mEq/15ml liquid NG SCH (09:59)
[2017-01-03] MEDS: Enoxaparin 80mg Inj SUBQ SCH ×2 (10:03→20:34)
[2017-01-03] MEDS: Pantoprazole 40mg pkt GT SCH (11:17)
[2017-01-03 12:07] LABS: INR 1.5 (0.9-1.1); PROTHROMBIN TIME 15.4 SEC (9.30-11.50)
[2017-01-03 12:51] VITALS: BP 101/42
--- NOTE | 2017-01-03 13:20 | General Progress Note ---
Assessment/Plan Problem List: (1) Hypernatremia ICD Codes: E87.0 - Hyperosmolality and hypernatremia SNOMED: 96967462 (2) Vomiting ICD Codes: R11.10 - Vomiting, unspecified SNOMED: 135555744 (3) Pancreatitis ICD Codes: K85.9 - Acute pancreatitis, unspecified SNOMED: 22878382 (4) Hiatal hernia ICD Codes: K44.9 - Diaphragmatic hernia without obstruction or gangrene SNOMED: 80584877 (5) Acid reflux ICD Codes: K21.9 - Gastro-esophageal reflux disease without esophagitis SNOMED: 650170612 (6) Lung nodule ICD Codes: R91.1 - Solitary pulmonary nodule SNOMED: 162319284 (7) LFTs abnormal ICD Codes: R79.89 - Other specified abnormal findings of blood chemistry SNOMED: 866631953 (8) HTN (hypertension) ICD Codes: I10 - Essential (primary) hypertension SNOMED: 65370393 (9) Acute kidney injury superimposed on chronic kidney disease ICD Codes: S37.009A - Unspecified injury of unspecified kidney, initial encounter; N18.9 - Chronic kidney disease, unspecified SNOMED: 54023369 (10) Aspiration pneumonia ICD Codes: J69.0 - Pneumonitis due to inhalation of food and vomit SNOMED: 937225938, 655250066 Qualifiers: Qualified Codes: J69.0 - Pneumonitis due to inhalation of food and vomit (11) Proteinuria ICD Codes: R80.9 - Proteinuria, unspecified SNOMED: 71964933, 694953305 Qualifiers: Qualified Codes: R80.9 - Proteinuria, unspecified (12) Anemia, chronic disease ICD Codes: D63.8 - Anemia in other chronic diseases classified elsewhere SNOMED: 059850265, 597467079 (13) Acute respiratory failure with hypoxia ICD Codes: J96.01 - Acute respiratory failure with hypoxia SNOMED: 19114543, 072214917 (14) Dehydration ICD Codes: E86.0 - Dehydration SNOMED: 79339942 (15) MAR (acute kidney injury) ICD Codes: N17.9 - Acute kidney failure, unspecified SNOMED: 38616312 (16) COPD (chronic obstructive pulmonary disease) ICD Codes: J44.9 - Chronic obstructive pulmonary disease, unspecified SNOMED: 55321912 (17) CHF (congestive heart failure) ICD Codes: I50.9 - Heart failure, unspecified SNOMED: 30607924 (18) Severe sepsis with septic shock ICD Codes: A41.9 - Sepsis, unspecified organism; R65.21 - Severe sepsis with septic shock SNOMED: 70522405 (19) HCAP (healthcare-associated pneumonia) ICD Codes: J18.9 - Pneumonia, unspecified organism SNOMED: 069646982 (20) Acute respiratory failure ICD Codes: J96.00 - Acute respiratory failure, unspecified whether with hypoxia or hypercapnia SNOMED: 27878180 (21) Schizophrenia ICD Codes: F20.9 - Schizophrenia, unspecified SNOMED: 42581058 (22) Gallstone ICD Codes: K80.20 - Calculus of gallbladder without cholecystitis without obstruction SNOMED: 602812031 (23) Anemia ICD Codes: D64.9 - Anemia, unspecified SNOMED: 703635446 (24) Osteoarthritis ICD Codes: M19.90 - Unspecified osteoarthritis, unspecified site SNOMED: 981135328 (25) Encephalopathy ICD Codes: G93.40 - Encephalopathy, unspecified SNOMED: 05609196, 956279542 (26) UTI (urinary tract infection) ICD Codes: N39.0 - Urinary tract infection, site not specified SNOMED: 98443850 (27) UTI (urinary tract infection) ICD Codes: N39.0 - Urinary tract infection, site not specified SNOMED: 32666033 (28) Elevated troponin ICD Codes: R74.8 - Abnormal levels of other serum enzymes SNOMED: 798136846, 753985636 (29) Pneumonia ICD Codes: J18.9 - Pneumonia, unspecified organism SNOMED: 969764087 Qualifiers: Qualified Codes: J18.1 - Lobar pneumonia, unspecified organism (30) Severe sepsis ICD Codes: A41.9 - Sepsis, unspecified organism; R65.20 - Severe sepsis without septic shock SNOMED: 74438174, 790049235 (31) Acute DVT (deep venous thrombosis) ICD Codes: I82.409 - Acute embolism and thrombosis of unspecified deep veins of unspecified lower extremity SNOMED: 819469607563249 Status: stable, progressing, tolerating diet Assessment/Plan o2 pulm tx abx dc plan Subjective Constitutional: Reports: weakness Allergies: Coded Allergies: No Known Allergies (Unverified , 12/05/15) All Systems: reviewed and negative except above Subjective sleepy calm Objective Last 24 Hour Vital Signs Date Time Temp Pulse Resp B/P Pulse Ox O2 Delivery O2 Flow Rate FiO2 01/03/17 12:51 98.2 73 22 101/42 95 Nasal Cannula 2.0 01/03/17 08:52 98.3 80 21 97 Room Air 01/03/17 04:00 96.5 72 20 134/79 95 Room Air 01/03/17 00:00 98.2 66 20 123/74 95 Room Air 01/02/17 20:00 97.9 83 22 118/77 98 Room Air 01/02/17 16:00 98.1 74 18 117/69 98 Room Air Intake and Output 01/02/17 01/03/17 19:00 07:00 Intake Total 1770.000 ml 1795.000 ml Output Total 1400 ml 850 ml Balance 370.000 ml 945.000 ml Intake Free Water 350 ml 300 ml IV Total 700.000 ml 775.000 ml Tube Feeding 720 ml 720 ml Output Urine Total 1400 ml 850 ml # Bowel Movements 1 Laboratory Tests 01/03/17 06:15: White Blood Count 5.9, Red Blood Count 4.27L, Hemoglobin 9.7L, Hematocrit 31.5L , Mean Corpuscular Volume 74L, Mean Corpuscular Hemoglobin 22.8L, Mean Corpuscular Hemoglobin Concent 30.8L, Red Cell Distribution Width 23.4H, Platelet Count 303, Mean Platelet Volume 10.5H, Neutrophils (%) (Auto) 51.6, Lymphocytes (%) (Auto) 21.0, Monocytes (%) (Auto) 13.8H, Eosinophils (%) (Auto) 11.7H, Basophils (%) (Auto) 1.9, Sodium Level 139, Potassium Level 4.5, Chloride Level 102, Carbon Dioxide Level 27, Anion Gap 10, Blood Urea Nitrogen 18, Creatinine 0.8, Estimat Glomerular Filtration Rate > 60, Glucose Level 101, Calcium Level 8.8 01/03/17 11:10: Prothrombin Time 15.4H, Prothromb Time International Ratio 1.5H Height (Feet): 6 Height (Inches): 0.00 Weight (Pounds): 185 General Appearance: lethargic, confused EENT: normal ENT inspection Neck: normal alignment Cardiovascular: normal peripheral pulses, normal rate, regular rhythm Respiratory/Chest: normal breath sounds Abdomen: normal bowel sounds, non tender, soft Extremities: normal inspection Edema: no edema noted Arm (L), no edema noted Arm (R), no edema noted Leg (L), no edema noted Leg (R), no edema noted Pedal (L), no edema noted Pedal (R), no edema noted Generalized Neurologic: motor weakness Skin: normal pigmentation, warm/dry ALONDRA SINGH Jan 03, 2017 13:20
[2017-01-03] MEDS: Levofloxacin 500mg tab ORAL SCH (16:15)
--- NOTE | 2017-01-03 16:34 | Cardiac Electrophysiology PN ---
Assessment/Plan Assessment/Plan 1. Hypotension, resolved. No pericardial effusion. EF 60%. 2. Troponin leak 0.43 and 0.46 that are flat and nonspecific.Pt Nonverbal. ECG normal and EF 60% Off aspirin for severe anemia and hold off beta uli for hypotension. 3. Increase WBC >20. Normalized to 6.8 On IV abx per ID 4. Anemia with 3 gm drop in HB from 11 to 8. No obvious gi bleed. 5. Acute RCFV DVT on Lovenox and Coumadin per pharmacy. Follow up with Dr. Tesfaye. INR goal 2-3. 6. Dysphagia.S/P PEG 7. Hospital acquired PNA and sepsis. On iv ABx per dr Funes. MARY KAY RN Subjective Subjective Comfortable in NAD.No events overnight. DC planning in progress.Awaiting placement. Objective Last 24 Hour Vital Signs Date Time Temp Pulse Resp B/P Pulse Ox O2 Delivery O2 Flow Rate FiO2 01/03/17 12:51 98.2 73 22 101/42 95 Nasal Cannula 2.0 01/03/17 08:52 98.3 80 21 97 Room Air 01/03/17 04:00 96.5 72 20 134/79 95 Room Air 01/03/17 00:00 98.2 66 20 123/74 95 Room Air 01/02/17 20:00 97.9 83 22 118/77 98 Room Air Intake and Output 01/02/17 01/03/17 19:00 07:00 Intake Total 1770.000 ml 1795.000 ml Output Total 1400 ml 850 ml Balance 370.000 ml 945.000 ml Intake Free Water 350 ml 300 ml IV Total 700.000 ml 775.000 ml Tube Feeding 720 ml 720 ml Output Urine Total 1400 ml 850 ml # Bowel Movements 1 Laboratory Tests Test 01/03/17 06:15 01/03/17 11:10 White Blood Count 5.9 K/UL (4.8-10.8) Red Blood Count 4.27 M/UL (4.70-6.10) L Hemoglobin 9.7 G/DL (14.2-18.0) L Hematocrit 31.5 % (42.0-52.0) L Mean Corpuscular Volume 74 FL (80-99) L Mean Corpuscular Hemoglobin 22.8 PG (27.0-31.0) L Mean Corpuscular Hemoglobin Concent 30.8 G/DL (32.0-36.0) L Red Cell Distribution Width 23.4 % (11.6-14.8) H Platelet Count 303 K/UL (150-450) Mean Platelet Volume 10.5 FL (6.5-10.1) H Neutrophils (%) (Auto) 51.6 % (45.0-75.0) Lymphocytes (%) (Auto) 21.0 % (20.0-45.0) Monocytes (%) (Auto) 13.8 % (1.0-10.0) H Eosinophils (%) (Auto) 11.7 % (0.0-3.0) H Basophils (%) (Auto) 1.9 % (0.0-2.0) Sodium Level 139 mEQ/L (135-145) Potassium Level 4.5 mEQ/L (3.4-4.9) Chloride Level 102 mEQ/L (98-107) Carbon Dioxide Level 27 mEQ/L (20-30) Anion Gap 10 (5-15) Blood Urea Nitrogen 18 mg/dL (7-23) Creatinine 0.8 mg/dL (0.7-1.2) Estimat Glomerular Filtration Rate > 60 mL/min (>60) Glucose Level 101 mg/dL (74-106) Calcium Level 8.8 mg/dL (8.6-10.2) Prothrombin Time 15.4 SEC (9.30-11.50) H Prothromb Time International Ratio 1.5 (0.9-1.1) H Objective HEAD AND NECK: No JVD. LUNGS: Coarse rhonchi. CARDIOVASCULAR: Regular S1 and S2 ABDOMEN: Soft. PEG in place EXTREMITIES: No pitting edema, lower extremities of contraction in position. VOLODYMYR HOSKINS Jan 03, 2017 16:34
[2017-01-03 16:35] VITALS: BP 140/66
[2017-01-03] MEDS ORDERED: Warfarin Sodium 3mg ORAL ONE (17:00)
[2017-01-03 20:00] VITALS: BP 103/64
--- NOTE | 2017-01-03 22:08 | General Progress Note ---
Assessment/Plan Assessment/Plan ASSESSMENT: 1. Right lower extremity deep venous thrombosis. Has a Right common femoral clot. Continue lovenox. Started on coumadin, INR goal 2-3 via peg 2. Anemia 2/2 hemodilution 3. Hematuria- better now 4. Anemia secondary to iron deficiency 5. Decrease in hemoglobin and hematocrit, rule out gastrointestinal bleed. 6. Leukocytosis has resolved d/t abx treatment. 7. Thrombocytopenia secondary to hemodilution as well- has improved, counts remain stable and WNL. 8. Elevated blood sugar. 9. Elevated troponin, has been seen by Cardiology service. 10. Dysphagia- s/p PEG insertion, tolerating feeding well. 11. Hypoxia. RECOMMENDATIONS: - Monitor counts. - Continue lovenox for DVT. Started on coumadin, INR goal 2-3 - Check ferritin to r/o iron deficiency- not iron deficient. - Appreciate Cardiology and Pulmonary recs - GI prophylaxis with PPI. - Antibiotics as needed. - Appreciate pulm/cc recs - Imaging has been reviewed. - Pain control. - Appreciate consultation!! Subjective Constitutional: Reports: no symptoms HEENT: Reports: no symptoms Cardiovascular: Reports: no symptoms Respiratory: Reports: no symptoms Gastrointestinal/Abdominal: Reports: no symptoms Genitourinary: Reports: no symptoms Neurologic/Psychiatric: Reports: no symptoms Endocrine: Reports: no symptoms Hematologic/Lymphatic: Reports: anemia Allergies: Coded Allergies: No Known Allergies (Unverified , 12/05/15) Subjective NAD, afebrile, no bleeding, to be DC Objective Last 24 Hour Vital Signs Date Time Temp Pulse Resp B/P Pulse Ox O2 Delivery O2 Flow Rate FiO2 01/03/17 20:00 97.9 84 20 103/64 93 01/03/17 16:35 98.0 82 18 140/66 94 Room Air 01/03/17 12:51 98.2 73 22 101/42 95 Nasal Cannula 2.0 01/03/17 08:52 98.3 80 21 97 Room Air 01/03/17 04:00 96.5 72 20 134/79 95 Room Air 01/03/17 00:00 98.2 66 20 123/74 95 Room Air Intake and Output 01/02/17 01/03/17 19:00 07:00 Intake Total 1770.000 ml 1795.000 ml Output Total 1400 ml 850 ml Balance 370.000 ml 945.000 ml Intake Free Water 350 ml 300 ml IV Total 700.000 ml 775.000 ml Tube Feeding 720 ml 720 ml Output Urine Total 1400 ml 850 ml # Bowel Movements 1 Laboratory Tests 01/03/17 06:15: White Blood Count 5.9, Red Blood Count 4.27L, Hemoglobin 9.7L, Hematocrit 31.5L , Mean Corpuscular Volume 74L, Mean Corpuscular Hemoglobin 22.8L, Mean Corpuscular Hemoglobin Concent 30.8L, Red Cell Distribution Width 23.4H, Platelet Count 303, Mean Platelet Volume 10.5H, Neutrophils (%) (Auto) 51.6, Lymphocytes (%) (Auto) 21.0, Monocytes (%) (Auto) 13.8H, Eosinophils (%) (Auto) 11.7H, Basophils (%) (Auto) 1.9, Sodium Level 139, Potassium Level 4.5, Chloride Level 102, Carbon Dioxide Level 27, Anion Gap 10, Blood Urea Nitrogen 18, Creatinine 0.8, Estimat Glomerular Filtration Rate > 60, Glucose Level 101, Calcium Level 8.8 01/03/17 11:10: Prothrombin Time 15.4H, Prothromb Time International Ratio 1.5H Height (Feet): 6 Height (Inches): 0.00 Weight (Pounds): 185 General Appearance: WD/WN EENT: PERRL/EOMI Neck: non-tender Cardiovascular: normal peripheral pulses Respiratory/Chest: chest wall non-tender Abdomen: normal bowel sounds Extremities: normal range of motion Edema: no edema noted Leg (L), no edema noted Leg (R), no edema noted Pedal (L) , no edema noted Pedal (R), no edema noted 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
--- NOTE | 2017-01-03 22:28 | Infectious Diseases Prog Note ---
Assessment/Plan Problems: (1) Severe sepsis with septic shock Assessment & Plan: Present on admission. Resolved. Finish an empiric course of vancomycin IV for 14-days till 01/04/17. (2) HCAP (healthcare-associated pneumonia) Assessment & Plan: SCx grew Acinetobacter. Finish a 14-day course of levofloxacin till 01/04/17. (3) Acute respiratory failure with hypoxia Assessment & Plan: Improved. (4) COPD (chronic obstructive pulmonary disease) (5) MAR (acute kidney injury) (6) Dysphagia Subjective Allergies: Coded Allergies: No Known Allergies (Unverified , 12/05/15) Objective Vital Signs Last 24 Hour Vital Signs Date Time Temp Pulse Resp B/P Pulse Ox O2 Delivery O2 Flow Rate FiO2 01/03/17 20:00 97.9 84 20 103/64 93 01/03/17 16:35 98.0 82 18 140/66 94 Room Air 01/03/17 12:51 98.2 73 22 101/42 95 Nasal Cannula 2.0 01/03/17 08:52 98.3 80 21 97 Room Air 01/03/17 04:00 96.5 72 20 134/79 95 Room Air 01/03/17 00:00 98.2 66 20 123/74 95 Room Air Height (Feet): 6 Height (Inches): 0.00 Weight (Pounds): 185 Laboratory Tests Test 01/03/17 06:15 01/03/17 11:10 White Blood Count 5.9 K/UL (4.8-10.8) Red Blood Count 4.27 M/UL (4.70-6.10) L Hemoglobin 9.7 G/DL (14.2-18.0) L Hematocrit 31.5 % (42.0-52.0) L Mean Corpuscular Volume 74 FL (80-99) L Mean Corpuscular Hemoglobin 22.8 PG (27.0-31.0) L Mean Corpuscular Hemoglobin Concent 30.8 G/DL (32.0-36.0) L Red Cell Distribution Width 23.4 % (11.6-14.8) H Platelet Count 303 K/UL (150-450) Mean Platelet Volume 10.5 FL (6.5-10.1) H Neutrophils (%) (Auto) 51.6 % (45.0-75.0) Lymphocytes (%) (Auto) 21.0 % (20.0-45.0) Monocytes (%) (Auto) 13.8 % (1.0-10.0) H Eosinophils (%) (Auto) 11.7 % (0.0-3.0) H Basophils (%) (Auto) 1.9 % (0.0-2.0) Sodium Level 139 mEQ/L (135-145) Potassium Level 4.5 mEQ/L (3.4-4.9) Chloride Level 102 mEQ/L (98-107) Carbon Dioxide Level 27 mEQ/L (20-30) Anion Gap 10 (5-15) Blood Urea Nitrogen 18 mg/dL (7-23) Creatinine 0.8 mg/dL (0.7-1.2) Estimat Glomerular Filtration Rate > 60 mL/min (>60) Glucose Level 101 mg/dL (74-106) Calcium Level 8.8 mg/dL (8.6-10.2) Prothrombin Time 15.4 SEC (9.30-11.50) H Prothromb Time International Ratio 1.5 (0.9-1.1) H Current Medications Medications (Trade) Dose Ordered Sig/Gloria Route PRN Reason Start Time Stop Time Status Last Admin Dose Admin Acetaminophen (Tylenol) 650 mg Q4H PRN ORAL Mild Pain (Pain Scale 1-3) 12/24/16 08:00 01/23/17 07:59 Acetaminophen (Tylenol) 650 mg Q4H PRN RECTAL fever > 100.5F 12/24/16 08:00 01/23/17 07:59 Bisacodyl (Dulcolax) 10 mg DAILYPRN PRN RECTAL Constipation 12/24/16 08:00 01/23/17 07:59 Dextrose/Sodium Chloride 1,000 ml @ 50 mls/hr Q20H IV 12/24/16 07:15 01/23/17 07:14 01/03/17 05:01 Enoxaparin Sodium (Lovenox) 80 mg EVERY 12 HOURS SUBQ 12/24/16 09:00 01/23/17 08:59 01/03/17 20:34 Lansoprazole (Prevacid) 30 mg DAILY GT 01/04/17 09:00 02/03/17 08:59 Levofloxacin (Levaquin) 500 mg Q24H ORAL 01/02/17 17:00 01/04/17 16:59 01/03/17 16:15 Magnesium Hydroxide (Mom) 30 ml HSPRN PRN ORAL Constipation 12/24/16 21:00 01/23/17 20:59 Nitroglycerin (Ntg) 0.4 mg Q5M PRN SL Prn Chest Pain 12/24/16 08:00 Ondansetron HCl (Zofran) 4 mg Q6H PRN IVP Nausea & Vomiting 12/24/16 08:00 01/23/17 07:59 Potassium Chloride (KCl 10% 20 mEq oral solution) 20 meq DAILY NG 12/29/16 09:00 01/28/17 08:59 01/03/17 09:59 Promethazine HCl/ Codeine (Phenergan with Codeine) 5 ml Q4H PRN ORAL For Cough 12/24/16 08:00 01/23/17 07:59 12/30/16 23:21 Vancomycin HCl (Vanco rx to dose) 1 ea DAILY PRN MISC PER RX PROTOCOL 12/24/16 09:00 01/23/17 08:59 Vancomycin HCl/ Dextrose (Vancomycin/D5W) 275 ml @ 183.708 mls/hr Q12HR IVPB 12/24/16 09:00 01/04/17 23:59 01/03/17 20:31 Warfarin Sodium (Coumadin per pharmacy) 1 ea DAILY PRN MISC Per rx protocol 12/30/16 15:15 01/29/17 15:14 VESNA FUENTES Jan 03, 2017 22:28
--- NOTE | 2017-01-03 23:32 | Pulmonology Progress Note ---
Assessment/Plan Problems: (1) Severe sepsis (2) Pneumonia (3) Acute respiratory failure (4) Acute DVT (deep venous thrombosis) (5) MAR (acute kidney injury) (6) Anemia (7) Encephalopathy Assessment/Plan IV antibiotics check cultures swallow study noted, deep penetration with nectar check cultures tolerating feeding dvt prophylaxis all notes and labs reviewed Subjective Allergies: Coded Allergies: No Known Allergies (Unverified , 12/05/15) Objective Last 24 Hour Vital Signs Date Time Temp Pulse Resp B/P Pulse Ox O2 Delivery O2 Flow Rate FiO2 01/03/17 20:00 97.9 84 20 103/64 93 01/03/17 16:35 98.0 82 18 140/66 94 Room Air 01/03/17 12:51 98.2 73 22 101/42 95 Nasal Cannula 2.0 01/03/17 08:52 98.3 80 21 97 Room Air 01/03/17 04:00 96.5 72 20 134/79 95 Room Air 01/03/17 00:00 98.2 66 20 123/74 95 Room Air Intake and Output 01/02/17 01/03/17 19:00 07:00 Intake Total 1770.000 ml 1795.000 ml Output Total 1400 ml 850 ml Balance 370.000 ml 945.000 ml Intake Free Water 350 ml 300 ml IV Total 700.000 ml 775.000 ml Tube Feeding 720 ml 720 ml Output Urine Total 1400 ml 850 ml # Bowel Movements 1 Objective General Appearance: WD/WN, no apparent distress Lines, tubes and drains: peripheral HEENT: normocephalic, atraumatic Neck: non-tender, supple Respiratory/Chest: chest wall non-tender, rhonchi - bilaterally Cardiovascular/Chest: normal peripheral pulses, normal rate Abdomen: normal bowel sounds Genitourinary/Rectal: normal genital exam Extremities: normal range of motion Laboratory Tests 01/03/17 06:15: White Blood Count 5.9, Red Blood Count 4.27L, Hemoglobin 9.7L, Hematocrit 31.5L , Mean Corpuscular Volume 74L, Mean Corpuscular Hemoglobin 22.8L, Mean Corpuscular Hemoglobin Concent 30.8L, Red Cell Distribution Width 23.4H, Platelet Count 303, Mean Platelet Volume 10.5H, Neutrophils (%) (Auto) 51.6, Lymphocytes (%) (Auto) 21.0, Monocytes (%) (Auto) 13.8H, Eosinophils (%) (Auto) 11.7H, Basophils (%) (Auto) 1.9, Sodium Level 139, Potassium Level 4.5, Chloride Level 102, Carbon Dioxide Level 27, Anion Gap 10, Blood Urea Nitrogen 18, Creatinine 0.8, Estimat Glomerular Filtration Rate > 60, Glucose Level 101, Calcium Level 8.8 01/03/17 11:10: Prothrombin Time 15.4H, Prothromb Time International Ratio 1.5H Current Medications Medications (Trade) Dose Ordered Sig/Gloria Route PRN Reason Start Time Stop Time Status Last Admin Dose Admin Acetaminophen (Tylenol) 650 mg Q4H PRN ORAL Mild Pain (Pain Scale 1-3) 12/24/16 08:00 01/23/17 07:59 Acetaminophen (Tylenol) 650 mg Q4H PRN RECTAL fever > 100.5F 12/24/16 08:00 01/23/17 07:59 Bisacodyl (Dulcolax) 10 mg DAILYPRN PRN RECTAL Constipation 12/24/16 08:00 01/23/17 07:59 Dextrose/Sodium Chloride 1,000 ml @ 50 mls/hr Q20H IV 12/24/16 07:15 01/23/17 07:14 01/03/17 05:01 Enoxaparin Sodium (Lovenox) 80 mg EVERY 12 HOURS SUBQ 12/24/16 09:00 01/23/17 08:59 01/03/17 20:34 Lansoprazole (Prevacid) 30 mg DAILY GT 01/04/17 09:00 02/03/17 08:59 Levofloxacin (Levaquin) 500 mg Q24H ORAL 01/02/17 17:00 01/04/17 16:59 01/03/17 16:15 Magnesium Hydroxide (Mom) 30 ml HSPRN PRN ORAL Constipation 12/24/16 21:00 01/23/17 20:59 Nitroglycerin (Ntg) 0.4 mg Q5M PRN SL Prn Chest Pain 12/24/16 08:00 Ondansetron HCl (Zofran) 4 mg Q6H PRN IVP Nausea & Vomiting 12/24/16 08:00 01/23/17 07:59 Potassium Chloride (KCl 10% 20 mEq oral solution) 20 meq DAILY NG 12/29/16 09:00 01/28/17 08:59 01/03/17 09:59 Promethazine HCl/ Codeine (Phenergan with Codeine) 5 ml Q4H PRN ORAL For Cough 12/24/16 08:00 01/23/17 07:59 12/30/16 23:21 Vancomycin HCl (Vanco rx to dose) 1 ea DAILY PRN MISC PER RX PROTOCOL 12/24/16 09:00 01/23/17 08:59 Vancomycin HCl/ Dextrose (Vancomycin/D5W) 275 ml @ 183.708 mls/hr Q12HR IVPB 12/24/16 09:00 01/04/17 23:59 01/03/17 20:31 Warfarin Sodium (Coumadin per pharmacy) 1 ea DAILY PRN MISC Per rx protocol 12/30/16 15:15 01/29/17 15:14 ALMA LINDO Jan 03, 2017 23:32
--- NOTE | 2017-01-03 23:36 | Nephrology Progress Note ---
Assessment/Plan Problem List: (1) Aspiration pneumonia (2) Anemia, chronic disease (3) Acute respiratory failure with hypoxia (4) Dehydration (5) MAR (acute kidney injury) (6) Schizophrenia (7) UTI (urinary tract infection) Plan Hypokalemia - resolved Monitor lytes Monitor H&H Monitor residuals Aspiration precaution Subjective Subjective In no distress Objective Objective Last 24 Hour Vital Signs Date Time Temp Pulse Resp B/P Pulse Ox O2 Delivery O2 Flow Rate FiO2 01/03/17 20:00 97.9 84 20 103/64 93 01/03/17 16:35 98.0 82 18 140/66 94 Room Air 01/03/17 12:51 98.2 73 22 101/42 95 Nasal Cannula 2.0 01/03/17 08:52 98.3 80 21 97 Room Air 01/03/17 04:00 96.5 72 20 134/79 95 Room Air 01/03/17 00:00 98.2 66 20 123/74 95 Room Air Intake and Output 01/02/17 01/03/17 19:00 07:00 Intake Total 1770.000 ml 1795.000 ml Output Total 1400 ml 850 ml Balance 370.000 ml 945.000 ml Intake Free Water 350 ml 300 ml IV Total 700.000 ml 775.000 ml Tube Feeding 720 ml 720 ml Output Urine Total 1400 ml 850 ml # Bowel Movements 1 Laboratory Tests 01/03/17 06:15: White Blood Count 5.9, Red Blood Count 4.27L, Hemoglobin 9.7L, Hematocrit 31.5L , Mean Corpuscular Volume 74L, Mean Corpuscular Hemoglobin 22.8L, Mean Corpuscular Hemoglobin Concent 30.8L, Red Cell Distribution Width 23.4H, Platelet Count 303, Mean Platelet Volume 10.5H, Neutrophils (%) (Auto) 51.6, Lymphocytes (%) (Auto) 21.0, Monocytes (%) (Auto) 13.8H, Eosinophils (%) (Auto) 11.7H, Basophils (%) (Auto) 1.9, Sodium Level 139, Potassium Level 4.5, Chloride Level 102, Carbon Dioxide Level 27, Anion Gap 10, Blood Urea Nitrogen 18, Creatinine 0.8, Estimat Glomerular Filtration Rate > 60, Glucose Level 101, Calcium Level 8.8 01/03/17 11:10: Prothrombin Time 15.4H, Prothromb Time International Ratio 1.5H Height (Feet): 6 Height (Inches): 0.00 Weight (Pounds): 185 BRIGID OLIVERA Jan 03, 2017 23:36
[2017-01-04] VITALS: BP 107/65
[2017-01-04 04:00] VITALS: BP 129/73
[2017-01-04] MEDS: D5 1/2NS 1,000 ML IV SCH (05:17)
[2017-01-04 06:58] LABS: INR 1.4 (0.9-1.1); PROTHROMBIN TIME 14.7 SEC (9.30-11.50)
[2017-01-04 07:05] LABS: BASOPHILS % (AUTO) 1.6 % (0.0-2.0); EOSINOPHILS % (AUTO) 10.1 % (0.0-3.0); LYMPHOCYTES % (AUTO) 16.5 % (20.0-45.0); MEAN CORPUSCULAR HEMOGLOBIN 22.6 PG (27.0-31.0); MEAN CORPUSCULAR HGB CONC 30.4 G/DL (32.0-36.0); MEAN CORPUSCULAR VOLUME 74 FL (80-99); MEAN PLATELET VOLUME 9.7 FL (6.5-10.1); MONOCYTES % (AUTO) 16.2 % (1.0-10.0); NEUTROPHILS % (AUTO) 55.6 % (45.0-75.0); PLATELET COUNT 315 K/UL (150-450); RED BLOOD COUNT 4.29 M/UL (4.70-6.10); WHITE BLOOD COUNT 5.1 K/UL (4.8-10.8)
[2017-01-04 07:10] LABS: ANION GAP 13 (5-15); CARBON DIOXIDE 25 mEQ/L (20-30); CHLORIDE 100 mEQ/L (98-107); CREATININE 0.9 mg/dL (0.7-1.2); GLOMERULAR FILTRATION RATE > 60 mL/min (>60); HEMOLYSIS 1; POTASSIUM 4.4 mEQ/L (3.4-4.9); SODIUM 138 mEQ/L (135-145)
[2017-01-04 08:45] VITALS: BP 136/75
[2017-01-04] MEDS: Enoxaparin 80mg Inj SUBQ SCH (09:29)
[2017-01-04] MEDS: KCl 10% 20 mEq/15ml liquid NG SCH (09:30)
[2017-01-04] MEDS: Vancomycin 750 MG in D5W 275 ML IVPB SCH (09:32)
[2017-01-04] MEDS ORDERED: Warfarin Sodium 7.5mg ORAL ONE (12:00)
--- NOTE | 2017-01-04 12:35 | GI Progress Note ---
Assessment/Plan Problems: (1) Schizophrenia ICD Codes: F20.9 - Schizophrenia, unspecified SNOMED: 36304662 (2) Anemia ICD Codes: D64.9 - Anemia, unspecified SNOMED: 316720892 (3) Severe sepsis ICD Codes: A41.9 - Sepsis, unspecified organism; R65.20 - Severe sepsis without septic shock SNOMED: 18359637, 195262617 (4) Hiatal hernia ICD Codes: K44.9 - Diaphragmatic hernia without obstruction or gangrene SNOMED: 40888573 (5) Hypernatremia ICD Codes: E87.0 - Hyperosmolality and hypernatremia SNOMED: 69568310 (6) Encounter for PEG (percutaneous endoscopic gastrostomy) ICD Codes: Z43.1 - Encounter for attention to gastrostomy SNOMED: 395373008, 985135882 Status: stable, unchanged Status Narrative Discussed with Dr. Dinh. Assessment/Plan ok for DC per GI standpoint GTF GT care and flush ppi iron deficiency >>venofer fu labs Subjective Subjective limited, AMS Objective Last 24 Hour Vital Signs Date Time Temp Pulse Resp B/P Pulse Ox O2 Delivery O2 Flow Rate FiO2 01/04/17 08:45 98.3 89 22 136/75 94 Room Air 01/04/17 04:00 98.4 85 20 129/73 97 Room Air 01/04/17 00:00 97.7 79 18 107/65 92 01/03/17 20:00 97.9 84 20 103/64 93 01/03/17 16:35 98.0 82 18 140/66 94 Room Air 01/03/17 12:51 98.2 73 22 101/42 95 Nasal Cannula 2.0 Intake and Output 01/03/17 01/04/17 19:00 07:00 Intake Total 1017.416 ml 1795.000 ml Output Total 400 ml 1600 ml Balance 617.416 ml 195.000 ml Intake Free Water 150 ml 300 ml IV Total 567.416 ml 775.000 ml Tube Feeding 300 ml 720 ml Output Urine Total 400 ml 1600 ml # Bowel Movements 1 Laboratory Tests Test 01/04/17 06:15 White Blood Count 5.1 K/UL (4.8-10.8) Red Blood Count 4.29 M/UL (4.70-6.10) L Hemoglobin 9.7 G/DL (14.2-18.0) L Hematocrit 31.8 % (42.0-52.0) L Mean Corpuscular Volume 74 FL (80-99) L Mean Corpuscular Hemoglobin 22.6 PG (27.0-31.0) L Mean Corpuscular Hemoglobin Concent 30.4 G/DL (32.0-36.0) L Red Cell Distribution Width 23.0 % (11.6-14.8) H Platelet Count 315 K/UL (150-450) Mean Platelet Volume 9.7 FL (6.5-10.1) Neutrophils (%) (Auto) 55.6 % (45.0-75.0) Lymphocytes (%) (Auto) 16.5 % (20.0-45.0) L Monocytes (%) (Auto) 16.2 % (1.0-10.0) H Eosinophils (%) (Auto) 10.1 % (0.0-3.0) H Basophils (%) (Auto) 1.6 % (0.0-2.0) Prothrombin Time 14.7 SEC (9.30-11.50) H Prothromb Time International Ratio 1.4 (0.9-1.1) H Sodium Level 138 mEQ/L (135-145) Potassium Level 4.4 mEQ/L (3.4-4.9) Chloride Level 100 mEQ/L (98-107) Carbon Dioxide Level 25 mEQ/L (20-30) Anion Gap 13 (5-15) Blood Urea Nitrogen 19 mg/dL (7-23) Creatinine 0.9 mg/dL (0.7-1.2) Estimat Glomerular Filtration Rate > 60 mL/min (>60) Glucose Level 106 mg/dL (74-106) Calcium Level 9.0 mg/dL (8.6-10.2) Height (Feet): 6 Height (Inches): 0.00 Weight (Pounds): 185 General Appearance: no apparent distress, alert Cardiovascular: normal rate Respiratory/Chest: normal breath sounds, no respiratory distress Abdominal Exam: soft, GT site - c/d/i Beth Carver N.P. Jan 04, 2017 12:35
[2017-01-04 12:53] VITALS: BP 106/77
[2017-01-04 12:55] VITALS: BP 105/68
--- NOTE | 2017-01-04 14:17 | Cardiac Electrophysiology PN ---
Assessment/Plan Assessment/Plan 1. Hypotension, resolved. No pericardial effusion. EF 60%. 2. Troponin leak 0.43 and 0.46 that are flat and nonspecific.Pt Nonverbal. ECG normal and EF 60% Off aspirin for severe anemia and hold off beta uli for hypotension. 3. Increase WBC >20. Normalized to 6.8 On IV abx per ID 4. Anemia with 3 gm drop in HB from 11 to 8. No obvious gi bleed. 5. Acute RCFV DVT on Lovenox and Coumadin per pharmacy. Follow up with Dr. Tesfaye. INR goal 2-3.INR today still 1.4! 6. Dysphagia.S/P PEG 7. Hospital acquired PNA and sepsis. On iv ABx per dr Funes. MARY KAY RN Subjective Subjective Comfortable in NAD.No events overnight. Awaiting placement. Objective Last 24 Hour Vital Signs Date Time Temp Pulse Resp B/P Pulse Ox O2 Delivery O2 Flow Rate FiO2 01/04/17 12:55 97.6 81 20 105/68 93 Room Air 01/04/17 12:53 97.6 81 20 106/77 93 Room Air 01/04/17 08:45 98.3 89 22 136/75 94 Room Air 01/04/17 04:00 98.4 85 20 129/73 97 Room Air 01/04/17 00:00 97.7 79 18 107/65 92 01/03/17 20:00 97.9 84 20 103/64 93 01/03/17 16:35 98.0 82 18 140/66 94 Room Air Intake and Output 01/03/17 01/04/17 19:00 07:00 Intake Total 1017.416 ml 1795.000 ml Output Total 400 ml 1600 ml Balance 617.416 ml 195.000 ml Intake Free Water 150 ml 300 ml IV Total 567.416 ml 775.000 ml Tube Feeding 300 ml 720 ml Output Urine Total 400 ml 1600 ml # Bowel Movements 1 Laboratory Tests Test 01/04/17 06:15 White Blood Count 5.1 K/UL (4.8-10.8) Red Blood Count 4.29 M/UL (4.70-6.10) L Hemoglobin 9.7 G/DL (14.2-18.0) L Hematocrit 31.8 % (42.0-52.0) L Mean Corpuscular Volume 74 FL (80-99) L Mean Corpuscular Hemoglobin 22.6 PG (27.0-31.0) L Mean Corpuscular Hemoglobin Concent 30.4 G/DL (32.0-36.0) L Red Cell Distribution Width 23.0 % (11.6-14.8) H Platelet Count 315 K/UL (150-450) Mean Platelet Volume 9.7 FL (6.5-10.1) Neutrophils (%) (Auto) 55.6 % (45.0-75.0) Lymphocytes (%) (Auto) 16.5 % (20.0-45.0) L Monocytes (%) (Auto) 16.2 % (1.0-10.0) H Eosinophils (%) (Auto) 10.1 % (0.0-3.0) H Basophils (%) (Auto) 1.6 % (0.0-2.0) Prothrombin Time 14.7 SEC (9.30-11.50) H Prothromb Time International Ratio 1.4 (0.9-1.1) H Sodium Level 138 mEQ/L (135-145) Potassium Level 4.4 mEQ/L (3.4-4.9) Chloride Level 100 mEQ/L (98-107) Carbon Dioxide Level 25 mEQ/L (20-30) Anion Gap 13 (5-15) Blood Urea Nitrogen 19 mg/dL (7-23) Creatinine 0.9 mg/dL (0.7-1.2) Estimat Glomerular Filtration Rate > 60 mL/min (>60) Glucose Level 106 mg/dL (74-106) Calcium Level 9.0 mg/dL (8.6-10.2) Objective HEAD AND NECK: No JVD. LUNGS: Coarse rhonchi. CARDIOVASCULAR: Regular S1 and S2 ABDOMEN: Soft. PEG in place EXTREMITIES: No pitting edema, lower extremities contraction VOLODYMYR HOSKINS Jan 04, 2017 14:17
--- NOTE | 2017-01-04 14:26 | General Progress Note ---
Assessment/Plan Problem List: (1) Hypernatremia ICD Codes: E87.0 - Hyperosmolality and hypernatremia SNOMED: 46846080 (2) Vomiting ICD Codes: R11.10 - Vomiting, unspecified SNOMED: 101553844 (3) Pancreatitis ICD Codes: K85.9 - Acute pancreatitis, unspecified SNOMED: 99403260 (4) Hiatal hernia ICD Codes: K44.9 - Diaphragmatic hernia without obstruction or gangrene SNOMED: 57162862 (5) Acid reflux ICD Codes: K21.9 - Gastro-esophageal reflux disease without esophagitis SNOMED: 320974834 (6) Lung nodule ICD Codes: R91.1 - Solitary pulmonary nodule SNOMED: 718554594 (7) LFTs abnormal ICD Codes: R79.89 - Other specified abnormal findings of blood chemistry SNOMED: 192090230 (8) HTN (hypertension) ICD Codes: I10 - Essential (primary) hypertension SNOMED: 20355951 (9) Acute kidney injury superimposed on chronic kidney disease ICD Codes: S37.009A - Unspecified injury of unspecified kidney, initial encounter; N18.9 - Chronic kidney disease, unspecified SNOMED: 80746951 (10) Aspiration pneumonia ICD Codes: J69.0 - Pneumonitis due to inhalation of food and vomit SNOMED: 950365843, 045203055 Qualifiers: Qualified Codes: J69.0 - Pneumonitis due to inhalation of food and vomit (11) Proteinuria ICD Codes: R80.9 - Proteinuria, unspecified SNOMED: 22386997, 543006652 Qualifiers: Qualified Codes: R80.9 - Proteinuria, unspecified (12) Anemia, chronic disease ICD Codes: D63.8 - Anemia in other chronic diseases classified elsewhere SNOMED: 977837675, 199469042 (13) Acute respiratory failure with hypoxia ICD Codes: J96.01 - Acute respiratory failure with hypoxia SNOMED: 50057290, 733629144 (14) Dehydration ICD Codes: E86.0 - Dehydration SNOMED: 24458706 (15) MAR (acute kidney injury) ICD Codes: N17.9 - Acute kidney failure, unspecified SNOMED: 95974630 (16) COPD (chronic obstructive pulmonary disease) ICD Codes: J44.9 - Chronic obstructive pulmonary disease, unspecified SNOMED: 59446228 (17) CHF (congestive heart failure) ICD Codes: I50.9 - Heart failure, unspecified SNOMED: 95559303 (18) Severe sepsis with septic shock ICD Codes: A41.9 - Sepsis, unspecified organism; R65.21 - Severe sepsis with septic shock SNOMED: 15023956 (19) HCAP (healthcare-associated pneumonia) ICD Codes: J18.9 - Pneumonia, unspecified organism SNOMED: 396617048 (20) Acute respiratory failure ICD Codes: J96.00 - Acute respiratory failure, unspecified whether with hypoxia or hypercapnia SNOMED: 55608653 (21) Schizophrenia ICD Codes: F20.9 - Schizophrenia, unspecified SNOMED: 85153599 (22) Gallstone ICD Codes: K80.20 - Calculus of gallbladder without cholecystitis without obstruction SNOMED: 848391432 (23) Anemia ICD Codes: D64.9 - Anemia, unspecified SNOMED: 968205524 (24) Osteoarthritis ICD Codes: M19.90 - Unspecified osteoarthritis, unspecified site SNOMED: 133894707 (25) Encephalopathy ICD Codes: G93.40 - Encephalopathy, unspecified SNOMED: 78576171, 499130994 (26) UTI (urinary tract infection) ICD Codes: N39.0 - Urinary tract infection, site not specified SNOMED: 43361355 (27) UTI (urinary tract infection) ICD Codes: N39.0 - Urinary tract infection, site not specified SNOMED: 46628576 (28) Elevated troponin ICD Codes: R74.8 - Abnormal levels of other serum enzymes SNOMED: 162591870, 815577906 (29) Pneumonia ICD Codes: J18.9 - Pneumonia, unspecified organism SNOMED: 824376934 Qualifiers: Qualified Codes: J18.1 - Lobar pneumonia, unspecified organism (30) Severe sepsis ICD Codes: A41.9 - Sepsis, unspecified organism; R65.20 - Severe sepsis without septic shock SNOMED: 06766052, 465099365 (31) Acute DVT (deep venous thrombosis) ICD Codes: I82.409 - Acute embolism and thrombosis of unspecified deep veins of unspecified lower extremity SNOMED: 868731930666130 Status: stable, progressing, tolerating diet Assessment/Plan o2 pulm tx abx cbc bmp am dc plan Subjective Allergies: Coded Allergies: No Known Allergies (Unverified , 12/05/15) All Systems: reviewed and negative except above Subjective sleepy calm Objective Last 24 Hour Vital Signs Date Time Temp Pulse Resp B/P Pulse Ox O2 Delivery O2 Flow Rate FiO2 01/04/17 12:55 97.6 81 20 105/68 93 Room Air 01/04/17 12:53 97.6 81 20 106/77 93 Room Air 01/04/17 08:45 98.3 89 22 136/75 94 Room Air 01/04/17 04:00 98.4 85 20 129/73 97 Room Air 01/04/17 00:00 97.7 79 18 107/65 92 01/03/17 20:00 97.9 84 20 103/64 93 01/03/17 16:35 98.0 82 18 140/66 94 Room Air Intake and Output 01/03/17 01/04/17 19:00 07:00 Intake Total 1017.416 ml 1795.000 ml Output Total 400 ml 1600 ml Balance 617.416 ml 195.000 ml Intake Free Water 150 ml 300 ml IV Total 567.416 ml 775.000 ml Tube Feeding 300 ml 720 ml Output Urine Total 400 ml 1600 ml # Bowel Movements 1 Laboratory Tests 01/04/17 06:15: White Blood Count 5.1, Red Blood Count 4.29L, Hemoglobin 9.7L, Hematocrit 31.8L , Mean Corpuscular Volume 74L, Mean Corpuscular Hemoglobin 22.6L, Mean Corpuscular Hemoglobin Concent 30.4L, Red Cell Distribution Width 23.0H, Platelet Count 315, Mean Platelet Volume 9.7, Neutrophils (%) (Auto) 55.6, Lymphocytes (%) (Auto) 16.5L, Monocytes (%) (Auto) 16.2H, Eosinophils (%) (Auto ) 10.1H, Basophils (%) (Auto) 1.6, Prothrombin Time 14.7H, Prothromb Time International Ratio 1.4H, Sodium Level 138, Potassium Level 4.4, Chloride Level 100, Carbon Dioxide Level 25, Anion Gap 13, Blood Urea Nitrogen 19, Creatinine 0.9, Estimat Glomerular Filtration Rate > 60, Glucose Level 106, Calcium Level 9.0 Height (Feet): 6 Height (Inches): 0.00 Weight (Pounds): 185 General Appearance: lethargic, confused EENT: normal ENT inspection Neck: normal alignment Cardiovascular: normal peripheral pulses, normal rate, regular rhythm Respiratory/Chest: chest wall non-tender, lungs clear, normal breath sounds Abdomen: normal bowel sounds, non tender, soft Extremities: normal inspection Edema: no edema noted Arm (L), no edema noted Arm (R), no edema noted Leg (L), no edema noted Leg (R), no edema noted Pedal (L), no edema noted Pedal (R), no edema noted Generalized Neurologic: abnormal care analyst II-XII Skin: normal pigmentation, warm/dry ALONDRA SINGH Jan 04, 2017 14:26
[2017-01-04] MEDS ORDERED: D5 1/2NS 1000ml IV ONE (16:26)
[2017-01-04] MEDS ORDERED: NS Irrig 1000ml ONE (16:26)
[2017-01-04 16:47] VITALS: BP 120/62
--- NOTE | 2017-01-04 18:52 | Nephrology Progress Note ---
Assessment/Plan Problem List: (1) Aspiration pneumonia (2) Anemia, chronic disease (3) Dehydration (4) Acute kidney injury superimposed on chronic kidney disease (5) Hypokalemia Plan Monitor lytes Aspiration precaution Abx per ID DVT prophylaxis AM labs Subjective ROS Limited/Unobtainable: Yes Subjective In bed, in no apparent distress Objective Objective Last 24 Hour Vital Signs Date Time Temp Pulse Resp B/P Pulse Ox O2 Delivery O2 Flow Rate FiO2 01/04/17 16:47 97.0 82 19 120/62 94 Room Air 01/04/17 12:55 97.6 81 20 105/68 93 Room Air 01/04/17 12:53 97.6 81 20 106/77 93 Room Air 01/04/17 08:45 98.3 89 22 136/75 94 Room Air 01/04/17 04:00 98.4 85 20 129/73 97 Room Air 01/04/17 00:00 97.7 79 18 107/65 92 01/03/17 20:00 97.9 84 20 103/64 93 Intake and Output 01/03/17 01/04/17 19:00 07:00 Intake Total 1017.416 ml 1795.000 ml Output Total 400 ml 1600 ml Balance 617.416 ml 195.000 ml Intake Free Water 150 ml 300 ml IV Total 567.416 ml 775.000 ml Tube Feeding 300 ml 720 ml Output Urine Total 400 ml 1600 ml # Bowel Movements 1 Laboratory Tests 01/04/17 06:15: White Blood Count 5.1, Red Blood Count 4.29L, Hemoglobin 9.7L, Hematocrit 31.8L , Mean Corpuscular Volume 74L, Mean Corpuscular Hemoglobin 22.6L, Mean Corpuscular Hemoglobin Concent 30.4L, Red Cell Distribution Width 23.0H, Platelet Count 315, Mean Platelet Volume 9.7, Neutrophils (%) (Auto) 55.6, Lymphocytes (%) (Auto) 16.5L, Monocytes (%) (Auto) 16.2H, Eosinophils (%) (Auto ) 10.1H, Basophils (%) (Auto) 1.6, Prothrombin Time 14.7H, Prothromb Time International Ratio 1.4H, Sodium Level 138, Potassium Level 4.4, Chloride Level 100, Carbon Dioxide Level 25, Anion Gap 13, Blood Urea Nitrogen 19, Creatinine 0.9, Estimat Glomerular Filtration Rate > 60, Glucose Level 106, Calcium Level 9.0 Height (Feet): 6 Height (Inches): 0.00 Weight (Pounds): 185 General Appearance: no apparent distress Neck: non-tender, supple Cardiovascular: normal rate, regular rhythm, no JVD Respiratory/Chest: lungs clear Abdomen: non tender Extremities: non-tender Neurologic: disoriented Celena French N.P. Jan 04, 2017 18:52
--- NOTE | 2017-01-04 22:14 | Pulmonology Progress Note ---
Assessment/Plan Problems: (1) Severe sepsis (2) Pneumonia (3) Acute respiratory failure (4) Acute DVT (deep venous thrombosis) (5) MAR (acute kidney injury) (6) Anemia (7) Encephalopathy Assessment/Plan IV antibiotics check cultures swallow study noted, deep penetration with nectar check cultures tolerating feeding dvt prophylaxis all notes and labs reviewed Subjective Allergies: Coded Allergies: No Known Allergies (Unverified , 12/05/15) Objective Last 24 Hour Vital Signs Date Time Temp Pulse Resp B/P Pulse Ox O2 Delivery O2 Flow Rate FiO2 01/04/17 16:47 97.0 82 19 120/62 94 Room Air 01/04/17 12:55 97.6 81 20 105/68 93 Room Air 01/04/17 12:53 97.6 81 20 106/77 93 Room Air 01/04/17 08:45 98.3 89 22 136/75 94 Room Air 01/04/17 04:00 98.4 85 20 129/73 97 Room Air 01/04/17 00:00 97.7 79 18 107/65 92 Intake and Output 01/03/17 01/04/17 19:00 07:00 Intake Total 1017.416 ml 1795.000 ml Output Total 400 ml 1600 ml Balance 617.416 ml 195.000 ml Intake Free Water 150 ml 300 ml IV Total 567.416 ml 775.000 ml Tube Feeding 300 ml 720 ml Output Urine Total 400 ml 1600 ml # Bowel Movements 1 Objective General Appearance: WD/WN, no apparent distress Lines, tubes and drains: peripheral HEENT: normocephalic, atraumatic Neck: non-tender, supple Respiratory/Chest: chest wall non-tender, rhonchi - bilaterally Cardiovascular/Chest: normal peripheral pulses, normal rate Abdomen: normal bowel sounds Genitourinary/Rectal: normal genital exam Extremities: normal range of motion Laboratory Tests 01/04/17 06:15: White Blood Count 5.1, Red Blood Count 4.29L, Hemoglobin 9.7L, Hematocrit 31.8L , Mean Corpuscular Volume 74L, Mean Corpuscular Hemoglobin 22.6L, Mean Corpuscular Hemoglobin Concent 30.4L, Red Cell Distribution Width 23.0H, Platelet Count 315, Mean Platelet Volume 9.7, Neutrophils (%) (Auto) 55.6, Lymphocytes (%) (Auto) 16.5L, Monocytes (%) (Auto) 16.2H, Eosinophils (%) (Auto ) 10.1H, Basophils (%) (Auto) 1.6, Prothrombin Time 14.7H, Prothromb Time International Ratio 1.4H, Sodium Level 138, Potassium Level 4.4, Chloride Level 100, Carbon Dioxide Level 25, Anion Gap 13, Blood Urea Nitrogen 19, Creatinine 0.9, Estimat Glomerular Filtration Rate > 60, Glucose Level 106, Calcium Level 9.0 ALMA LINDO Jan 04, 2017 22:14
--- NOTE | 2017-01-04 22:57 | General Progress Note ---
Assessment/Plan Assessment/Plan ASSESSMENT: 1. Right lower extremity deep venous thrombosis. Has a Right common femoral clot. Continue lovenox. Started on coumadin, INR goal 2-3 via peg 2. Anemia 2/2 hemodilution 3. Hematuria- better now 4. Anemia secondary to iron deficiency 5. Decrease in hemoglobin and hematocrit, rule out gastrointestinal bleed. 6. Leukocytosis has resolved d/t abx treatment. 7. Thrombocytopenia secondary to hemodilution as well- has improved, counts remain stable and WNL. 8. Elevated blood sugar. 9. Elevated troponin, has been seen by Cardiology service. 10. Dysphagia- s/p PEG insertion, tolerating feeding well. 11. Hypoxia. RECOMMENDATIONS: - Monitor counts. - Continue coumadin, INR goal 2-3 - Check ferritin to r/o iron deficiency- not iron deficient. - Appreciate Cardiology and Pulmonary recs - GI prophylaxis with PPI. - Antibiotics as needed. - Appreciate pulm/cc recs - Imaging has been reviewed. - Pain control. - Appreciate consultation!! Subjective ROS Limited/Unobtainable: Yes Constitutional: Reports: no symptoms HEENT: Reports: no symptoms Cardiovascular: Reports: no symptoms Respiratory: Reports: no symptoms Gastrointestinal/Abdominal: Reports: no symptoms, other - peg Genitourinary: Reports: no symptoms Neurologic/Psychiatric: Reports: no symptoms Endocrine: Reports: no symptoms Hematologic/Lymphatic: Reports: anemia Allergies: Coded Allergies: No Known Allergies (Unverified , 12/05/15) Subjective no hempotysis, no hematochezia, afebrile Objective Last 24 Hour Vital Signs Date Time Temp Pulse Resp B/P Pulse Ox O2 Delivery O2 Flow Rate FiO2 01/04/17 16:47 97.0 82 19 120/62 94 Room Air 01/04/17 12:55 97.6 81 20 105/68 93 Room Air 01/04/17 12:53 97.6 81 20 106/77 93 Room Air 01/04/17 08:45 98.3 89 22 136/75 94 Room Air 01/04/17 04:00 98.4 85 20 129/73 97 Room Air 01/04/17 00:00 97.7 79 18 107/65 92 Intake and Output 01/03/17 01/04/17 19:00 07:00 Intake Total 1017.416 ml 1795.000 ml Output Total 400 ml 1600 ml Balance 617.416 ml 195.000 ml Intake Free Water 150 ml 300 ml IV Total 567.416 ml 775.000 ml Tube Feeding 300 ml 720 ml Output Urine Total 400 ml 1600 ml # Bowel Movements 1 Laboratory Tests 01/04/17 06:15: White Blood Count 5.1, Red Blood Count 4.29L, Hemoglobin 9.7L, Hematocrit 31.8L , Mean Corpuscular Volume 74L, Mean Corpuscular Hemoglobin 22.6L, Mean Corpuscular Hemoglobin Concent 30.4L, Red Cell Distribution Width 23.0H, Platelet Count 315, Mean Platelet Volume 9.7, Neutrophils (%) (Auto) 55.6, Lymphocytes (%) (Auto) 16.5L, Monocytes (%) (Auto) 16.2H, Eosinophils (%) (Auto ) 10.1H, Basophils (%) (Auto) 1.6, Prothrombin Time 14.7H, Prothromb Time International Ratio 1.4H, Sodium Level 138, Potassium Level 4.4, Chloride Level 100, Carbon Dioxide Level 25, Anion Gap 13, Blood Urea Nitrogen 19, Creatinine 0.9, Estimat Glomerular Filtration Rate > 60, Glucose Level 106, Calcium Level 9.0 Height (Feet): 6 Height (Inches): 0.00 Weight (Pounds): 185 General Appearance: no apparent distress EENT: PERRL/EOMI Neck: non-tender Cardiovascular: normal rate Respiratory/Chest: chest wall non-tender Abdomen: normal bowel sounds Extremities: non-tender Edema: no edema noted Leg (L), no edema noted Leg (R), no edema noted Pedal (L) , no edema noted Pedal (R), no edema noted Generalized Neurologic: ore trimmer II-XII grossly normal Skin: warm/dry Gilberto Freedman Jan 04, 2017 22:57
--- NOTE | 2017-01-05 17:37 | Discharge Summary ---
Discharge Summary Hospital Course Date of Admission Dec 20, 2016 at 03:07 Date of Discharge Jan 04, 2017 at 18:00 Admitting Diagnosis Pneumonia, Severe Sepsis HPI Bret Boyce is a 66 year old male who was admitted on Dec 20, 2016 at 03:07 for Pneumonia, Severe Sepsis Hospital Course [id number] Discharge Discharge Disposition Patient was discharged to SNF/Subacute Facility(03) Discharge Diagnoses: Wendi Sams NP Jan 05, 2017 17:37
--- NOTE | 2017-01-06 03:08 | Discharge Summary 2 SIG ---
DATE OF ADMISSION: 12/20/2016 DATE OF DISCHARGE: 01/04/2017 CONSULTANTS: 1. Johan Rangel D.O. 2. Ren Dodd M.D. 3. Gilberto Freedman M.D. 4. Frankie Ratliff M.D. 5. Jesús Dinh M.D. 6. Lebron Stoner M.D. 7. Misty Rojas M.D. BRIEF HOSPITAL COURSE: The patient is a 66-year-old male who is from [facility] was brought in for dyspnea and respiratory distress that started a couple of days. Per EMS, the patient was hypoxic and 911 was called. On evaluation at ED, the patient was hypotensive, blood pressure 70/48, and had acute respiratory failure, on non-rebreather 15 liters oxygen, O2 saturation was down to 80s. X-ray showed right lower lobe infiltrate. Laboratories showed elevated lactate, 6.0. He was immediately placed on BiPAP and was admitted to ICU. During the course of hospital stay, he was followed by Dr. Misty Rojas from Pulmonary service and Dr. Dodd, Cardiology service, Dr. Ratliff, infectious control, and Dr. Freedman, Hematology and Dr. Stoner, Nephrology consult. He was initially started on vancomycin and Zosyn and presented with acute renal failure due to sepsis and shock. Hypotension improved with IV fluids. There was also elevated troponin, EKG was normal. Echocardiogram with ejection fraction of 60%. Troponin leak could be secondary to transient hypotension. Initially he was on aspirin, but was placed on hold due to severe acute anemia as there was a drop of hemoglobin from [address] Freedman was consulted for evaluation of anemia and duplex venous findings of acute thrombus on the common femoral vein on the right leg. The patient was started on heparin drip and Coumadin. Anemia was secondary to hemodilution. The patient was referred to bioethics committee as the patient is unpresented and has severe swallowing dysfunction predisposing to aspiration. The patient is awake and noninteractive. G-tube for feeding was necessary to prevent further episodes of aspiration. Two physicians signed consent. The patient underwent EGD with PEG tube placement on 12/28/2016. He was started on PEG tube feedings. Abdominal binder was placed. He was continued on gentle hydration. Sputum culture showed growth of Acinetobacter, which is pansensitive. Blood culture was negative. He was also given a iron for iron deficiency anemia. He was eventually discharged to SNF to finish antibiotic course of vancomycin and levofloxacin until 01/04/2017. DISPOSITION: The patient was discharged to SNF. FINAL DIAGNOSES: 1. Severe sepsis with septic shock. 2. Healthcare-associated pneumonia. 3. Acute respiratory failure with hypoxia, improved. 4. Acute kidney injury superimposed on chronic kidney disease. 5. Acute deep venous thrombosis. 6. Elevated troponin secondary to troponin leak secondary to hypotension. 7. Dysphagia, status post percutaneous endoscopic gastrostomy tube insertion. 8. Anemia of iron deficiency. 9. Hypokalemia. 10. Dehydration. 11. Hypernatremia. 12. Schizophrenia. 13. Osteoarthritis. Johan Rangel D.O. I have been assigned to dictate discharge summary on this account and I was not involved in the patient's management. Wendi Sams N.P. DR: Ginger JOB#: [id number] CC: OSCAR
== END 2017-01-04 18:00 | DRG 720 ==
LOC: EDBD 02:30 → EMR 02:48 → ICU 03:07 → EDBEDREQ 04:00 → 2E 12-22 01:56 → 4W 12-24 07:39
PROC: 0DH63UZ Insertion of Feeding Device into Stomach, Percutaneous Approach (ICD-10-PCS; principal; 2016-12-28 09:31)
DX: A41.9 Sepsis, unspecified organism (principal); J96.01 Acute respiratory failure with hypoxia; K72.00 Acute and subacute hepatic failure without coma; J69.0 Pneumonitis due to inhalation of food and vomit; R65.21 Severe sepsis with septic shock; G93.40 Encephalopathy, unspecified; N17.9 Acute kidney failure, unspecified; K85.90 Acute pancreatitis without necrosis or infection, unspecified; I82.409 Acute embolism and thrombosis of unspecified deep veins of unspecified lower extremity; K21.9 Gastro-esophageal reflux disease without esophagitis; K44.9 Diaphragmatic hernia without obstruction or gangrene; F20.9 Schizophrenia, unspecified; F41.9 Anxiety disorder, unspecified; N40.0 Benign prostatic hyperplasia without lower urinary tract symptoms; J44.1 Chronic obstructive pulmonary disease with (acute) exacerbation; F03.90 Unspecified dementia, unspecified severity, without behavioral disturbance, psychotic disturbance, mood disturbance, and anxiety; D50.9 Iron deficiency anemia, unspecified; D69.6 Thrombocytopenia, unspecified; R13.10 Dysphagia, unspecified; E87.0 Hyperosmolality and hypernatremia; E86.0 Dehydration; E87.6 Hypokalemia; R31.9 Hematuria, unspecified; R11.10 Vomiting, unspecified; N39.0 Urinary tract infection, site not specified
CPT/HCPCS: 36415; 36600; 71010; 74230; 80048; 80053; 80202; 81003; 82550; 82553; 82607; 82728; 82746; 82803; 83010; 83540; 83550; 83605; 83735; 83880; 84100; 84165; 84484; 85007; 85025; 85044; 85060; 85610; 85730; 87040; 87070; 87081; 87181; 87205; 93005; 93306; 93970; 94003; 94150; 94640; 94660; 94664; 94760

== ENCOUNTER 2017-01-12 21:25 | Inpatient (IN) | payer MEDICAID ==
[~2017-01-12] VITALS: Ht 182.9 cm; Wt 68.0 kg
[~2017-01-12 21:25] MED LIST changes: +ACETAMINOPHEN120 MG RECTAL; +BISACODYL10 M1 RC; +LORAZEPAM0.5 MG ORAL; +LOVENOX10 M2 SUBQ; +NEXIUM40 MG ORAL; +NITROGLYCERIN0.4 MG SL; +POTASSIUM20 MEQ/15 GT; +PROMETHAZINE-C118 M1 ORAL; +RESTORIL15 MG ORAL; +ZOFRAN4 M3 ORAL
[2017-01-12] MEDS ORDERED: Vancomycin 1 GM in NS 275 ML IV ONE (21:45)
[2017-01-12] MEDS ORDERED: Ampicillin/Sulbactam Sod 3 GM in NS 110 ML IV SCH (21:45)
[2017-01-12] MEDS ORDERED: Miralax 17gm pkt ORAL PRN (22:00)
[2017-01-12] MEDS ORDERED: Promethazine/Codeine 5ml UD ORAL PRN (22:00)
[2017-01-12] MEDS ORDERED: DuoNeb 0.5-3(2.5)mg/3ml neb HHN PRN (22:00)
[2017-01-12] MEDS ORDERED: Mylanta II UD 30ml ORAL PRN (22:00)
[2017-01-12] MEDS ORDERED: Nitroglycerin Subl 0.4mg tab (Bottle Of 25) SL PRN (22:00)
[2017-01-12 22:19] VITALS: BP 99/82
[2017-01-12 22:27] LABS: MEAN CORPUSCULAR HEMOGLOBIN 25.1 PG (27.0-31.0); MEAN CORPUSCULAR HGB CONC 31.8 G/DL (32.0-36.0); MEAN CORPUSCULAR VOLUME 79 FL (80-99); MEAN PLATELET VOLUME 13.3 FL (6.5-10.1); PLATELET COUNT 208 K/UL (150-450); RED BLOOD COUNT 5.22 M/UL (4.70-6.10); RED CELL DISTRIBUTION WIDTH 23.3 % (11.6-14.8)
[2017-01-12] MEDS ORDERED: Unasyn 3gm Inj ONE (22:38)
[2017-01-12 22:44] LABS: ALBUMIN/GLOBULIN RATIO 0.6 (1.0-2.7); CALCIUM 9.8 mg/dL (8.6-10.2); CREATININE 2.2 mg/dL (0.7-1.2); POTASSIUM 4.3 mEQ/L (3.4-4.9); TOTAL PROTEIN 7.8 g/dL (6.6-8.7)
[2017-01-12 22:46] LABS: REFLEX LACTIC ACID YES OR NO YES
[2017-01-12 22:49] LABS: APPEARANCE,URINE CLEAR; KETONES,URINE NEGATIVE (NEGATIVE); LEUKOCYTE ESTERASE ,URINE 1+ (NEGATIVE); NITRITE,URINE NEGATIVE (NEGATIVE); PH,URINE 5 (4.5-8.0); PROTEIN,URINE 1+ (NEGATIVE); UROBILINOGEN,URINE NORMAL MG/DL (0.0-1.0)
[2017-01-12 22:51] LABS: TROPONIN I 0.33 ng/mL (<=0.30)
[2017-01-12 22:55] LABS: CKMB 4.4 ng/mL (< 6.7)
[2017-01-12 22:57] LABS: BACTERIA,URINE FEW /HPF; RBC,URINE 0-2 /HPF (0 - 0); WBC,URINE 0-2 /HPF (0 - 0)
[2017-01-12 23:04] LABS: ANISOCYTOSIS 1+; BAND NEUTROPHILS % (MANUAL) 6 % (0-8); BASOPHILS % (MANUAL) 0 % (0-2); EOSINOPHILS % (MANUAL) 0 % (0-3); LYMPHOCYTES % (MANUAL) 11 % (20-45); NEUTROPHILS % (MANUAL) 76 % (45-75); PLATELET ESTIMATE ADEQUATE; PLATELET MORPHOLOGY NORMAL; TOTAL CELLS COUNTED 100
[2017-01-12 23:13] VITALS: BP 169/118
[2017-01-12] MEDS ORDERED: Vancomycin 1gm inj IVPB ONE (23:19)
[2017-01-12] MEDS ORDERED: ACETAMINOPHEN325 M1 ORAL (23:26)
[2017-01-12 23:30] LABS: ABG BASE EXCESS 0.8; ABG PCO2 29.8 mmHg (35.0-45.0)
[2017-01-12 23:31] LABS: ABG ALLEN TEST POSITIVE
[2017-01-13] VITALS (7 sets, daily range): BP systolic 85–104; BP diastolic 59–74
[2017-01-13] MEDS ORDERED: Cefepime HCl 1 GM in D5W 55 ML IV SCH ×2
[2017-01-13] MEDS ORDERED: Cefepime 1gm vial ONE (01:02)
--- NOTE | 2017-01-13 01:11 | Emergency Room Report ---
History of Present Illness General Chief Complaint: Dyspnea/Respdistress Source: Patient Present Illness HPI Patient is a 66-year-old male who presented after increased difficulty breathing. Patient had a been sent in from jail. Patient had reportedly been febrile. The patient had been noticed to have increased her Subroto started on supplemental oxygen 4 L. The patient was seen by EMS was started on nonrebreather. The patient gradual onset of worsening of symptoms. Patient appears he been hospitalized for sepsis. Patient not noted to be vomiting or having any diarrhea. Allergies: Coded Allergies: No Known Allergies (Unverified , 12/05/15) Patient History Past Medical History: see triage record Reviewed Nursing Documentation: PMH: Agreed, PSxH: Agreed Nursing Documentation-PMH Hx Cardiac Problems: Yes - HF, Anemia, Dehydration, Severe Sepsis, DVT Hx Hypertension: Yes Hx COPD: Yes - Aspiration, PNA Hx Cancer: No Review of Systems All Other Systems: negative except mentioned in HPI Physical Exam Vital Signs Date Time Temp Pulse Resp B/P Pulse Ox O2 Delivery O2 Flow Rate FiO2 01/12/17 21:26 97.0 124 20 112/79 97 Non-Rebreather 15.0 01/12/17 22:07 60 General Appearance: moderate distress, Chronically Ill Head: normocephalic Eyes: bilateral eye other - dry mucous membranes Neck: full range of motion, supple Respiratory: respiratory distress, accessory muscle use, crackles Cardiovascular #1: normal peripheral pulses, regular rate, rhythm, no edema Gastrointestinal: soft Musculoskeletal: other - bilateral lower extremity contractures Neurologic: responsive, motor weakness Skin: normal inspection, normal color Procedures Critical Care Time Critical Care Time Patient had a critical medical condition which untreated could potentially result in life or limb threatening injury. Total critical care time excluding procedures approximately 45 minutes. Medical Decision Making Diagnostic Impression: Primary Impression: Elevated troponin Additional Impressions: COPD (chronic obstructive pulmonary disease) Dehydration ER Course Patient presented for shortness of breath.Differential included but was not limited to anemia, pneumonia, pneumothorax, myocardial infarction, pericardial effusion, congestive heart failure, acidosis. Because of complexity of patient' s case laboratory testing and imaging studies were ordered. The patient was noted to have markedly difficulty breathing and was started on BiPAP. The patient was given IV fluids as well as IV antibiotics the patient appears to be possibly septic. A chest x-ray one view interpreted by me showed a right lower lung infiltrate with normal cardiac size without evident pneumothorax. Laboratory testing showed elevated white blood count as well as elevated BUN/creatinine consistent with prerenal azotemia. Dr. Alondra Singh was contacted for inpatient management. Labs Test 01/12/17 21:50 01/12/17 22:29 01/12/17 22:52 01/12/17 23:28 White Blood Count 19.0 K/UL (4.8-10.8) Red Blood Count 5.22 M/UL (4.70-6.10) Hemoglobin 13.1 G/DL (14.2-18.0) Hematocrit 41.1 % (42.0-52.0) Mean Corpuscular Volume 79 FL (80-99) Mean Corpuscular Hemoglobin 25.1 PG (27.0-31.0) Mean Corpuscular Hemoglobin Concent 31.8 G/DL (32.0-36.0) Red Cell Distribution Width 23.3 % (11.6-14.8) Platelet Count 208 K/UL (150-450) Mean Platelet Volume 13.3 FL (6.5-10.1) Neutrophils (%) (Auto) % (45.0-75.0) Lymphocytes (%) (Auto) % (20.0-45.0) Monocytes (%) (Auto) % (1.0-10.0) Eosinophils (%) (Auto) % (0.0-3.0) Basophils (%) (Auto) % (0.0-2.0) Differential Total Cells Counted 100 Neutrophils % (Manual) 76 % (45-75) Lymphocytes % (Manual) 11 % (20-45) Monocytes % (Manual) 7 % (1-10) Eosinophils % (Manual) 0 % (0-3) Basophils % (Manual) 0 % (0-2) Band Neutrophils 6 % (0-8) Platelet Estimate Adequate Platelet Morphology Normal Anisocytosis 1+ Sodium Level 153 mEQ/L (135-145) Potassium Level 4.3 mEQ/L (3.4-4.9) Chloride Level 110 mEQ/L (98-107) Carbon Dioxide Level 26 mEQ/L (20-30) Anion Gap 17 (5-15) Blood Urea Nitrogen 71 mg/dL (7-23) Creatinine 2.2 mg/dL (0.7-1.2) Estimat Glomerular Filtration Rate 30.0 mL/min (>60) Glucose Level 143 mg/dL (74-106) Calcium Level 9.8 mg/dL (8.6-10.2) Total Bilirubin 0.5 mg/dL (0.0-1.2) Aspartate Amino Transf (AST/SGOT) 63 U/L (5-40) Alanine Aminotransferase (ALT/SGPT) 52 U/L (3-41) Alkaline Phosphatase 48 U/L (40-129) Total Creatine Kinase 330 U/L (38-174) Creatine Kinase MB 4.4 ng/mL (< 6.7) Creatine Kinase MB Relative Index 1.3 Troponin I 0.33 ng/mL (<=0.30) Pro-B-Type Natriuretic Peptide 3461 pg/mL (0-125) Total Protein 7.8 g/dL (6.6-8.7) Albumin 3.2 g/dL (3.5-5.2) Globulin 4.6 g/dL Albumin/Globulin Ratio 0.6 (1.0-2.7) Lipase 99 U/L (< 60) Urine Color Yellow Urine Appearance Clear Urine pH 5 (4.5-8.0) Urine Specific [place] 1.010 (1.005-1.035) Urine Protein 1+ (NEGATIVE) Urine Glucose (UA) Negative (NEGATIVE) Urine Ketones Negative (NEGATIVE) Urine Occult Blood Negative (NEGATIVE) Urine Nitrite Negative (NEGATIVE) Urine Bilirubin Negative (NEGATIVE) Urine Urobilinogen Normal MG/DL (0.0-1.0) Urine Leukocyte Esterase 1+ (NEGATIVE) Urine RBC 0-2 /HPF (0 - 0) Urine WBC 0-2 /HPF (0 - 0) Urine Squamous Epithelial Cells None /LPF (NONE/OCC) Urine Bacteria Few /HPF (NONE) Lactic Acid Level 2.90 mmol/L (0.66-2.22) Arterial Blood pH 7.509 (7.350-7.450) Arterial Blood Partial Pressure CO2 29.8 mmHg (35.0-45.0) Arterial Blood Partial Pressure O2 121.5 mmHg (75.0-100.0) Arterial Blood HCO3 23.2 mmol/L (22.0-26.0) Arterial Blood Oxygen Saturation 98.4 % (92.0-98.0) Arterial Blood Base Excess 0.8 Foreign Test Positive Last Vital Signs Date Time Temp Pulse Resp B/P Pulse Ox O2 Delivery O2 Flow Rate FiO2 01/13/17 00:44 97.0 101 31 98/60 92 Bi-pap 15.0 30 Status: improved Disposition: HOME, SELF-CARE Condition: Stable Referrals: ALONDRA SINGH (PCP) David Metcalf January 13, 2017 01:11
[2017-01-13 05:02] LABS: CREATININE 1.9 mg/dL (0.7-1.2); GLOMERULAR FILTRATION RATE 35.5 mL/min (>60); PHOSPHORUS 2.9 mg/dL (2.5-4.8); POTASSIUM 4.4 mEQ/L (3.4-4.9)
[2017-01-13 05:07] LABS: BASOPHILS % (AUTO) 0.6 % (0.0-2.0); LYMPHOCYTES % (AUTO) 10.2 % (20.0-45.0); MEAN CORPUSCULAR HEMOGLOBIN 23.6 PG (27.0-31.0); MEAN CORPUSCULAR HGB CONC 30.8 G/DL (32.0-36.0); MEAN CORPUSCULAR VOLUME 76 FL (80-99); MEAN PLATELET VOLUME 13.8 FL (6.5-10.1); MONOCYTES % (AUTO) 6.7 % (1.0-10.0); NEUTROPHILS % (AUTO) 82.5 % (45.0-75.0); PLATELET COUNT 162 K/UL (150-450); RED BLOOD COUNT 4.29 M/UL (4.70-6.10); RED CELL DISTRIBUTION WIDTH 24.2 % (11.6-14.8); WHITE BLOOD COUNT 17.8 K/UL (4.8-10.8)
--- NOTE | 2017-01-13 09:24 | Infectious Diseases Prog Note ---
Assessment/Plan Problems: (1) Severe sepsis with septic shock Assessment & Plan: will send blood culture and continue wide spectrum antibiotics pending culture results (2) HCAP (healthcare-associated pneumonia) Assessment & Plan: will send sputum culture and start zosyn , continue vancomycin renally dosed by pharmacist (3) MAR (acute kidney injury) Assessment & Plan: due to sepsis , recommend hydration, monitor UOP, consult renal (4) Acute respiratory failure Assessment & Plan: due to the above, on BIPAP, monitor ABG, further management as per tool dresser (5) Elevated troponin Assessment & Plan: rule out ACS, recommend cardiology consult and close troponin monitor Subjective Allergies: Coded Allergies: No Known Allergies (Unverified , 12/05/15) Objective Vital Signs Last 24 Hour Vital Signs Date Time Temp Pulse Resp B/P Pulse Ox O2 Delivery O2 Flow Rate FiO2 01/13/17 08:37 99 16 84 Facial 30 01/13/17 07:14 97.0 86 16 92/63 85 15.0 30 01/13/17 07:01 99 16 85 Facial 30 01/13/17 06:44 97.0 86 31 92/63 89 15.0 30 01/13/17 05:40 99 31 89 Facial 30 01/13/17 05:37 97.0 88 16 86/64 97 Bi-pap 15.0 30 01/13/17 03:29 95 26 95 Facial 30 01/13/17 03:19 97.0 87 16 85/60 96 15.0 30 01/13/17 01:00 95 18 97 Facial 30 01/13/17 00:44 97.0 101 31 98/60 92 Bi-pap 15.0 30 01/12/17 23:47 107 30 99 Facial 30 01/12/17 23:47 30 01/12/17 23:40 30 01/12/17 23:14 60 01/12/17 23:13 97.0 105 32 169/118 94 Bi-pap 15.0 60 01/12/17 22:19 119 54 Non-Rebreather 15.0 60 01/12/17 22:19 105 30 99/82 99 Bi-pap 60 01/12/17 22:07 119 54 97 Facial 60 01/12/17 21:26 97.0 124 20 112/79 97 Non-Rebreather 15.0 Height (Feet): 6 Height (Inches): 0.00 Weight (Pounds): 150 Laboratory Tests Test 01/12/17 21:50 01/12/17 22:29 01/12/17 22:52 01/12/17 23:28 White Blood Count 19.0 K/UL (4.8-10.8) H Red Blood Count 5.22 M/UL (4.70-6.10) Hemoglobin 13.1 G/DL (14.2-18.0) L Hematocrit 41.1 % (42.0-52.0) L Mean Corpuscular Volume 79 FL (80-99) L Mean Corpuscular Hemoglobin 25.1 PG (27.0-31.0) L Mean Corpuscular Hemoglobin Concent 31.8 G/DL (32.0-36.0) L Red Cell Distribution Width 23.3 % (11.6-14.8) H Platelet Count 208 K/UL (150-450) Mean Platelet Volume 13.3 FL (6.5-10.1) H Neutrophils (%) (Auto) % (45.0-75.0) Lymphocytes (%) (Auto) % (20.0-45.0) Monocytes (%) (Auto) % (1.0-10.0) Eosinophils (%) (Auto) % (0.0-3.0) Basophils (%) (Auto) % (0.0-2.0) Differential Total Cells Counted 100 Neutrophils % (Manual) 76 % (45-75) H Lymphocytes % (Manual) 11 % (20-45) L Monocytes % (Manual) 7 % (1-10) Eosinophils % (Manual) 0 % (0-3) Basophils % (Manual) 0 % (0-2) Band Neutrophils 6 % (0-8) Platelet Estimate Adequate Platelet Morphology Normal Anisocytosis 1+ Sodium Level 153 mEQ/L (135-145) H Potassium Level 4.3 mEQ/L (3.4-4.9) Chloride Level 110 mEQ/L (98-107) H Carbon Dioxide Level 26 mEQ/L (20-30) Anion Gap 17 (5-15) H Blood Urea Nitrogen 71 mg/dL (7-23) H Creatinine 2.2 mg/dL (0.7-1.2) H Estimat Glomerular Filtration Rate 30.0 mL/min (>60) Glucose Level 143 mg/dL (74-106) H Lactic Acid Level 2.90 mmol/L (0.66-2.22) H 2.90 mmol/L (0.66-2.22) H Calcium Level 9.8 mg/dL (8.6-10.2) Total Bilirubin 0.5 mg/dL (0.0-1.2) Aspartate Amino Transf (AST/SGOT) 63 U/L (5-40) H Alanine Aminotransferase (ALT/SGPT) 52 U/L (3-41) H Alkaline Phosphatase 48 U/L (40-129) Total Creatine Kinase 330 U/L (38-174) H Creatine Kinase MB 4.4 ng/mL (< 6.7) Creatine Kinase MB Relative Index 1.3 Troponin I 0.33 ng/mL (<=0.30) *H Pro-B-Type Natriuretic Peptide 3461 pg/mL (0-125) H Total Protein 7.8 g/dL (6.6-8.7) Albumin 3.2 g/dL (3.5-5.2) L Globulin 4.6 g/dL Albumin/Globulin Ratio 0.6 (1.0-2.7) L Lipase 99 U/L (< 60) H Urine Color Yellow Urine Appearance Clear Urine pH 5 (4.5-8.0) Urine Specific [place] 1.010 (1.005-1.035) Urine Protein 1+ (NEGATIVE) H Urine Glucose (UA) Negative (NEGATIVE) Urine Ketones Negative (NEGATIVE) Urine Occult Blood Negative (NEGATIVE) Urine Nitrite Negative (NEGATIVE) Urine Bilirubin Negative (NEGATIVE) Urine Urobilinogen Normal MG/DL (0.0-1.0) Urine Leukocyte Esterase 1+ (NEGATIVE) H Urine RBC 0-2 /HPF (0 - 0) H Urine WBC 0-2 /HPF (0 - 0) Urine Squamous Epithelial Cells None /LPF (NONE/OCC) Urine Bacteria Few /HPF (NONE) Arterial Blood pH 7.509 (7.350-7.450) Arterial Blood Partial Pressure CO2 29.8 mmHg (35.0-45.0) L Arterial Blood Partial Pressure O2 121.5 mmHg (75.0-100.0) H Arterial Blood HCO3 23.2 mmol/L (22.0-26.0) Arterial Blood Oxygen Saturation 98.4 % (92.0-98.0) H Arterial Blood Base Excess 0.8 Foreign Test Positive Test 01/13/17 04:20 White Blood Count 17.8 K/UL (4.8-10.8) H Red Blood Count 4.29 M/UL (4.70-6.10) L Hemoglobin 10.1 G/DL (14.2-18.0) L Hematocrit 32.8 % (42.0-52.0) L Mean Corpuscular Volume 76 FL (80-99) L Mean Corpuscular Hemoglobin 23.6 PG (27.0-31.0) L Mean Corpuscular Hemoglobin Concent 30.8 G/DL (32.0-36.0) L Red Cell Distribution Width 24.2 % (11.6-14.8) H Platelet Count 162 K/UL (150-450) Mean Platelet Volume 13.8 FL (6.5-10.1) H Neutrophils (%) (Auto) 82.5 % (45.0-75.0) H Lymphocytes (%) (Auto) 10.2 % (20.0-45.0) L Monocytes (%) (Auto) 6.7 % (1.0-10.0) Eosinophils (%) (Auto) 0.0 % (0.0-3.0) Basophils (%) (Auto) 0.6 % (0.0-2.0) Sodium Level 155 mEQ/L (135-145) H Potassium Level 4.4 mEQ/L (3.4-4.9) Chloride Level 115 mEQ/L (98-107) H Carbon Dioxide Level 26 mEQ/L (20-30) Anion Gap 14 (5-15) Blood Urea Nitrogen 74 mg/dL (7-23) H Creatinine 1.9 mg/dL (0.7-1.2) H Estimat Glomerular Filtration Rate 35.5 mL/min (>60) Glucose Level 131 mg/dL (74-106) H Calcium Level 9.0 mg/dL (8.6-10.2) Phosphorus Level 2.9 mg/dL (2.5-4.8) Albumin 2.4 g/dL (3.5-5.2) L Current Medications Medications (Trade) Dose Ordered Sig/Gloria Route PRN Reason Start Time Stop Time Status Last Admin Dose Admin Acetaminophen (Tylenol) 650 mg Q4H PRN ORAL fever 01/12/17 22:00 02/11/17 21:59 Al Hydroxide/Mg Hydroxide (Mylanta II) 30 ml Q6H PRN ORAL dyspepsia 01/12/17 22:00 02/11/17 21:59 Albuterol/ Ipratropium 3 ml 3 ml Q4H PRN HHN Shortness of Breath 01/12/17 22:00 01/17/17 21:59 Cefepime HCl/ Dextrose (Maxipime/D5W) 55 ml @ 110 mls/hr Q12HR@0000,1200 IV 01/13/17 00:00 01/20/17 00:00 01/13/17 01:10 Heparin Sodium (Porcine) (Heparin 5000 units/ml) 5,000 units EVERY 12 HOURS SUBQ 01/13/17 09:00 02/12/17 08:59 Midodrine (Pro-Amatine) 5 mg THREE TIMES A DAY ORAL 01/13/17 09:00 02/12/17 08:59 Nitroglycerin (Ntg) 0.4 mg Q5MIN X 3 DOSES PRN SL Prn Chest Pain 01/12/17 22:00 02/11/17 21:59 Ondansetron HCl (Zofran) 4 mg Q6H PRN IVP Nausea & Vomiting 01/12/17 22:00 02/11/17 21:59 Polyethylene Glycol (Miralax) 17 gm DAILYPRN PRN ORAL Constipation 01/12/17 22:00 02/11/17 21:59 Promethazine HCl/ Codeine (Phenergan with Codeine) 5 ml Q4H PRN ORAL For Cough 01/12/17 22:00 02/11/17 21:59 Temazepam (Restoril) 15 mg HSPRN PRN ORAL Insomnia 01/12/17 22:00 01/19/17 21:59 Vancomycin HCl 1 ea 1 ea DAILY PRN MISC Per rx protocol 01/12/17 22:00 02/11/17 21:59 Vancomycin HCl/ Dextrose (Vancomycin/D5W) 275 ml @ 183.708 mls/hr Q24H IVPB 01/13/17 21:00 01/18/17 20:59 Frankie Ratliff M.D. January 13, 2017 09:24
[2017-01-13] MEDS: Heparin 5000 units/ml inj SUBQ SCH ×2 (09:37→21:02)
[2017-01-13] MEDS: Piperacillin/Tazobactam 3.375 GM in D5W 110 ML IVPB SCH ×2 (10:46→17:12)
--- NOTE | 2017-01-13 12:08 | General Progress Note ---
Progress Note Progress Note [id number] full note dictated BARTOLOME OVALLES January 13, 2017 12:08
--- NOTE | 2017-01-13 12:31 | Consultation ---
History of Present Illness General Date patient seen: January 13, 2017 Chief Complaint: Dyspnea/Respdistress Referring physician: Dr. Rangel Reason for Consultation: Respiratory failure Present Illness HPI 66-year-old male with advanced dementia, Bed bound, Gtube, recently discharged from [facility] presented to ER with CC of increased difficulty breathing. The patient was seen by EMS was started on nonrebreather. He was in respiratory failure in ER and was started on BIPAP. He was hypotensive and was started on IV fluids as well. Allergies: Coded Allergies: No Known Allergies (Unverified , 12/05/15) Medication History Scheduled Enoxaparin* (Lovenox*), 80 MG SUBQ EVERY 12 HOURS, (Reported) Magnesium Hydroxide (Milk of Magnesia), 30 ML ORAL DAILY, (Reported) Midodrine* (Proamatine*), 5 MG ORAL THREE TIMES A DAY, (Reported) Potassium Chloride (Potassium Chloride), 20 MEQ GT DAILY, (Reported) Scheduled PRN Acetaminophen (Tylenol), 325 MG ORAL Q4HR PRN for For Pain, (Reported) Acetaminophen* (Tylenol*), 650 MG RECTAL Q4H PRN for Mild Pain/Temp > 100.5, ( Reported) Acetaminophen* (Acetaminophen 325MG Tablet*), 650 MG ORAL Q4H PRN for For Pain, (Reported) Codeine/Promethazine Hcl* (Promethazine-Codeine Syrup*), 5 ML ORAL Q4H PRN for For Cough, (Reported) Lorazepam* (Lorazepam*), 0.5 MG ORAL Q4HR PRN for For Anxiety, (Reported) Nitroglycerin (Nitroglycerin), 0.4 MG SL for Prn Chest Pain, (Reported) Ondansetron* (Zofran*), 4 MG ORAL Q6H PRN for Nausea & Vomiting, (Reported) Temazepam* (Restoril*), 15 MG ORAL BEDTIME PRN for Insomnia, (Reported) Miscellaneous Medications Al Hydroxide/mg Hydroxide (Mag-Al Liquid), 30 ML GT, (Reported) Bisacodyl (Bisacodyl), 10 MG RC, (Reported) Patient History Healthcare decision maker Resuscitation status Advanced Directive on File Past Medical/Surgical History Past Medical/Surgical History: (1) Feeding by G-tube (2) Alzheimer's dementia (3) Cachexia (4) Lung nodule (5) COPD (chronic obstructive pulmonary disease) Review of Systems All Other Systems: negative except mentioned in HPI Physical Exam Lines, tubes and drains: peripheral HEENT: normocephalic, atraumatic Neck: non-tender, normal alignment Respiratory/Chest: chest wall non-tender, lungs clear Breasts: no masses Cardiovascular/Chest: normal peripheral pulses Abdomen: normal bowel sounds, non tender Genitourinary/Rectal: normal genital exam Extremities: normal range of motion Skin Exam: normal pigmentation 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 Lymphatic: anterior cervical Last 24 Hour Vital Signs Date Time Temp Pulse Resp B/P Pulse Ox O2 Delivery O2 Flow Rate FiO2 01/13/17 11:59 97.7 79 28 104/59 98 15.0 30 01/13/17 10:38 96 25 88 Facial 30 01/13/17 08:37 99 16 84 Facial 30 01/13/17 07:14 97.0 86 16 92/63 85 15.0 30 01/13/17 07:01 99 16 85 Facial 30 01/13/17 06:44 97.0 86 31 92/63 89 15.0 30 01/13/17 05:40 99 31 89 Facial 30 01/13/17 05:37 97.0 88 16 86/64 97 Bi-pap 15.0 30 01/13/17 03:29 95 26 95 Facial 30 01/13/17 03:19 97.0 87 16 85/60 96 15.0 30 01/13/17 01:00 95 18 97 Facial 30 01/13/17 00:44 97.0 101 31 98/60 92 Bi-pap 15.0 30 01/12/17 23:47 107 30 99 Facial 30 01/12/17 23:47 30 01/12/17 23:40 30 01/12/17 23:14 60 01/12/17 23:13 97.0 105 32 169/118 94 Bi-pap 15.0 60 01/12/17 22:19 119 54 Non-Rebreather 15.0 60 01/12/17 22:19 105 30 99/82 99 Bi-pap 60 01/12/17 22:07 119 54 97 Facial 60 01/12/17 21:26 97.0 124 20 112/79 97 Non-Rebreather 15.0 Intake and Output 01/12/17 01/13/17 19:00 07:00 Intake Total 1440 ml Balance 1440 ml Intake IV Total 1440 ml # Voids 1 Laboratory Tests Test 01/12/17 21:50 01/12/17 22:29 01/12/17 22:52 01/12/17 23:28 White Blood Count 19.0 K/UL (4.8-10.8) H Red Blood Count 5.22 M/UL (4.70-6.10) Hemoglobin 13.1 G/DL (14.2-18.0) L Hematocrit 41.1 % (42.0-52.0) L Mean Corpuscular Volume 79 FL (80-99) L Mean Corpuscular Hemoglobin 25.1 PG (27.0-31.0) L Mean Corpuscular Hemoglobin Concent 31.8 G/DL (32.0-36.0) L Red Cell Distribution Width 23.3 % (11.6-14.8) H Platelet Count 208 K/UL (150-450) Mean Platelet Volume 13.3 FL (6.5-10.1) H Neutrophils (%) (Auto) % (45.0-75.0) Lymphocytes (%) (Auto) % (20.0-45.0) Monocytes (%) (Auto) % (1.0-10.0) Eosinophils (%) (Auto) % (0.0-3.0) Basophils (%) (Auto) % (0.0-2.0) Differential Total Cells Counted 100 Neutrophils % (Manual) 76 % (45-75) H Lymphocytes % (Manual) 11 % (20-45) L Monocytes % (Manual) 7 % (1-10) Eosinophils % (Manual) 0 % (0-3) Basophils % (Manual) 0 % (0-2) Band Neutrophils 6 % (0-8) Platelet Estimate Adequate Platelet Morphology Normal Anisocytosis 1+ Sodium Level 153 mEQ/L (135-145) H Potassium Level 4.3 mEQ/L (3.4-4.9) Chloride Level 110 mEQ/L (98-107) H Carbon Dioxide Level 26 mEQ/L (20-30) Anion Gap 17 (5-15) H Blood Urea Nitrogen 71 mg/dL (7-23) H Creatinine 2.2 mg/dL (0.7-1.2) H Estimat Glomerular Filtration Rate 30.0 mL/min (>60) Glucose Level 143 mg/dL (74-106) H Lactic Acid Level 2.90 mmol/L (0.66-2.22) H 2.90 mmol/L (0.66-2.22) H Calcium Level 9.8 mg/dL (8.6-10.2) Total Bilirubin 0.5 mg/dL (0.0-1.2) Aspartate Amino Transf (AST/SGOT) 63 U/L (5-40) H Alanine Aminotransferase (ALT/SGPT) 52 U/L (3-41) H Alkaline Phosphatase 48 U/L (40-129) Total Creatine Kinase 330 U/L (38-174) H Creatine Kinase MB 4.4 ng/mL (< 6.7) Creatine Kinase MB Relative Index 1.3 Troponin I 0.33 ng/mL (<=0.30) *H Pro-B-Type Natriuretic Peptide 3461 pg/mL (0-125) H Total Protein 7.8 g/dL (6.6-8.7) Albumin 3.2 g/dL (3.5-5.2) L Globulin 4.6 g/dL Albumin/Globulin Ratio 0.6 (1.0-2.7) L Lipase 99 U/L (< 60) H Urine Color Yellow Urine Appearance Clear Urine pH 5 (4.5-8.0) Urine Specific [place] 1.010 (1.005-1.035) Urine Protein 1+ (NEGATIVE) H Urine Glucose (UA) Negative (NEGATIVE) Urine Ketones Negative (NEGATIVE) Urine Occult Blood Negative (NEGATIVE) Urine Nitrite Negative (NEGATIVE) Urine Bilirubin Negative (NEGATIVE) Urine Urobilinogen Normal MG/DL (0.0-1.0) Urine Leukocyte Esterase 1+ (NEGATIVE) H Urine RBC 0-2 /HPF (0 - 0) H Urine WBC 0-2 /HPF (0 - 0) Urine Squamous Epithelial Cells None /LPF (NONE/OCC) Urine Bacteria Few /HPF (NONE) Arterial Blood pH 7.509 (7.350-7.450) Arterial Blood Partial Pressure CO2 29.8 mmHg (35.0-45.0) L Arterial Blood Partial Pressure O2 121.5 mmHg (75.0-100.0) H Arterial Blood HCO3 23.2 mmol/L (22.0-26.0) Arterial Blood Oxygen Saturation 98.4 % (92.0-98.0) H Arterial Blood Base Excess 0.8 Foreign Test Positive Test 01/13/17 04:20 White Blood Count 17.8 K/UL (4.8-10.8) H Red Blood Count 4.29 M/UL (4.70-6.10) L Hemoglobin 10.1 G/DL (14.2-18.0) L Hematocrit 32.8 % (42.0-52.0) L Mean Corpuscular Volume 76 FL (80-99) L Mean Corpuscular Hemoglobin 23.6 PG (27.0-31.0) L Mean Corpuscular Hemoglobin Concent 30.8 G/DL (32.0-36.0) L Red Cell Distribution Width 24.2 % (11.6-14.8) H Platelet Count 162 K/UL (150-450) Mean Platelet Volume 13.8 FL (6.5-10.1) H Neutrophils (%) (Auto) 82.5 % (45.0-75.0) H Lymphocytes (%) (Auto) 10.2 % (20.0-45.0) L Monocytes (%) (Auto) 6.7 % (1.0-10.0) Eosinophils (%) (Auto) 0.0 % (0.0-3.0) Basophils (%) (Auto) 0.6 % (0.0-2.0) Sodium Level 155 mEQ/L (135-145) H Potassium Level 4.4 mEQ/L (3.4-4.9) Chloride Level 115 mEQ/L (98-107) H Carbon Dioxide Level 26 mEQ/L (20-30) Anion Gap 14 (5-15) Blood Urea Nitrogen 74 mg/dL (7-23) H Creatinine 1.9 mg/dL (0.7-1.2) H Estimat Glomerular Filtration Rate 35.5 mL/min (>60) Glucose Level 131 mg/dL (74-106) H Calcium Level 9.0 mg/dL (8.6-10.2) Phosphorus Level 2.9 mg/dL (2.5-4.8) Albumin 2.4 g/dL (3.5-5.2) L Height (Feet): 6 Height (Inches): 0.00 Weight (Pounds): 150 Medications Current Medications Medications (Trade) Dose Ordered Sig/Gloria Route PRN Reason Start Time Stop Time Status Last Admin Dose Admin Acetaminophen (Tylenol) 650 mg Q4H PRN ORAL fever 01/12/17 22:00 02/11/17 21:59 Al Hydroxide/Mg Hydroxide (Mylanta II) 30 ml Q6H PRN ORAL dyspepsia 01/12/17 22:00 02/11/17 21:59 Albuterol/ Ipratropium (DuoNeb 0.5-3(2.5)mg/3ml) 3 ml Q4H PRN HHN Shortness of Breath 01/12/17 22:00 01/17/17 21:59 Heparin Sodium (Porcine) (Heparin 5000 units/ml) 5,000 units EVERY 12 HOURS SUBQ 01/13/17 09:00 02/12/17 08:59 01/13/17 09:37 Midodrine (Pro-Amatine) 5 mg THREE TIMES A DAY ORAL 01/13/17 09:00 02/12/17 08:59 01/13/17 09:35 Nitroglycerin (Ntg) 0.4 mg Q5MIN X 3 DOSES PRN SL Prn Chest Pain 01/12/17 22:00 02/11/17 21:59 Ondansetron HCl (Zofran) 4 mg Q6H PRN IVP Nausea & Vomiting 01/12/17 22:00 02/11/17 21:59 Piperacillin Sod/ Tazobactam Sod/ Dextrose (Zosyn/D5W) 110 ml @ 27.5 mls/hr Q8H IVPB 01/13/17 10:00 01/20/17 09:59 01/13/17 10:46 Polyethylene Glycol (Miralax) 17 gm DAILYPRN PRN ORAL Constipation 01/12/17 22:00 02/11/17 21:59 Promethazine HCl/ Codeine (Phenergan with Codeine) 5 ml Q4H PRN ORAL For Cough 01/12/17 22:00 02/11/17 21:59 Temazepam (Restoril) 15 mg HSPRN PRN ORAL Insomnia 01/12/17 22:00 01/19/17 21:59 Vancomycin HCl 750 mg/Dextrose 275 ml @ 183.708 mls/hr Q24H IVPB 01/13/17 21:00 01/18/17 20:59 Vancomycin HCl 1 ea 1 ea DAILY PRN MISC Per rx protocol 01/12/17 22:00 02/11/17 21:59 Assessment/Plan Problem List: (1) Severe sepsis with septic shock ICD Codes: A41.9 - Sepsis, unspecified organism; R65.21 - Severe sepsis with septic shock SNOMED: 34161151 (2) Acute respiratory failure ICD Codes: J96.00 - Acute respiratory failure, unspecified whether with hypoxia or hypercapnia SNOMED: 61760009 (3) COPD (chronic obstructive pulmonary disease) ICD Codes: J44.9 - Chronic obstructive pulmonary disease, unspecified SNOMED: 27693494 (4) Alzheimer's dementia ICD Codes: G30.9 - Alzheimer's disease, unspecified SNOMED: 83193989 (5) Cachexia ICD Codes: R64 - Cachexia SNOMED: 650062480 (6) Feeding by G-tube ICD Codes: Z93.1 - Gastrostomy status SNOMED: 770960905, 966620734 Assessment/Plan IV fluids Iv antibiotics titrate bipap check cultures resume feeding dvt prophylaxis ALMA LINDO January 13, 2017 12:31
--- NOTE | 2017-01-13 12:33 | Diagnostic Imaging Report ---
Indication: Dyspnea Comparison: 12/26/16 A single view chest radiograph was obtained. Findings: Interstitial densities noted in the right lung, significantly improved compared to the previous examination which showed pulmonary edema. Atelectasis noted at the left lung base with elevation of the left hemidiaphragm. Heart size is normal. Bones are osteopenic. Impression: Primarily interstitial disease within the right lung probably residual from a nearly resolved CHF. Pneumonia not excluded. Left basilar atelectasis and volume loss.
[2017-01-13 13:39] LABS: CREATININE, RANDOM URINE 89.3 mg/dL
[2017-01-13 14:43] LABS: TROPONIN I < 0.30 ng/mL (<=0.30)
[2017-01-13] MEDS ORDERED: NS 275ml ONE (15:31)
[2017-01-13] MEDS ORDERED: Tubing IV Secondary IV ONE (15:31)
--- NOTE | 2017-01-13 16:47 | Wound Care Consultation ---
Wound Assessment Wound Assessment #1: Wound Present on Admission: Yes New Wound: No Status Change of Wound: No Wound Location Body Site Modif: right, lateral Wound Location Body Site: malleolus/ankle Wound Type: pressure ulcer Jericho Test: Does not Jericho Pressure Ulcer Stage: deep tissue injury Wound Thickness: Full Thickness Wound Length: 1.5 Wound Width: 1.5 Wound Depth: utd Percent of Wound Purple/Maroon: 100 Wound Drainage Amount: None Wound Drainage Odor: None/Absent Tissue Surrounding Wound: Erythemic Wound General Appearance: Reddened Wound Assessment #2: Wound Number: #2 Wound Present on Admission: Yes New Wound: No Status Change of Wound: No Wound Location Body Site Modif: right Wound Location Body Site: trochanter Wound Type: pressure ulcer Jericho Test: Does not Jericho Pressure Ulcer Stage: deep tissue injury Wound Thickness: Full Thickness Wound Length: 5.0 Wound Width: 5.5 Wound Depth: utd Percent of Wound Purple/Maroon: 100 Wound Drainage Amount: None Wound Drainage Odor: None/Absent Tissue Surrounding Wound: Indurated Wound General Appearance: Reddened Wound Assessment #3: Wound Number: #3 Wound Present on Admission: Yes New Wound: No Status Change of Wound: No Wound Location Body Site Modif: left, lateral, dorsal Wound Location Body Site: foot Wound Type: scab Jericho Test: Does not Jericho Wound Drainage Amount: None Wound Drainage Odor: None/Absent Tissue Surrounding Wound: Intact Wound General Appearance: Asymptomatic Wound Assessment #4: Wound Number: #4 Wound Present on Admission: Yes New Wound: No Status Change of Wound: No Wound Location Body Site Modif: right, medial, dorsal Wound Location Body Site: foot Wound Type: scab - scatterd Jericho Test: Does not Jericho Wound Drainage Amount: None Wound Drainage Odor: None/Absent Tissue Surrounding Wound: Intact Wound General Appearance: Asymptomatic Wound Comment #1 Right lateral malleolus DTI pressure ulcer #2 Right trochanter DTI pressure ulcer #3 Left lateral dorsal foot dry scab #4 Right medial dorsal foot with Scattered dry scabs Recommendation -Local wound care for DTI pressure ulcer -Keep clean and dry -Turn and reposition -Optimize nutrition -Heel protector on both heels -Offload both heels -Assess and f/u accordingly for any changes MADY GARCIA RN January 13, 2017 16:47
--- NOTE | 2017-01-13 19:23 | Cardiology Progress Note ---
Assessment/Plan Assessment/Plan The patient is seen and examined, full consult note is dictated. Objective Last 24 Hour Vital Signs Date Time Temp Pulse Resp B/P Pulse Ox O2 Delivery O2 Flow Rate FiO2 01/13/17 16:34 79 25 96 Facial 30 01/13/17 16:00 30 01/13/17 16:00 97.7 79 28 102/61 97 30 01/13/17 15:09 74 01/13/17 14:53 85 25 97 Facial 30 01/13/17 12:58 83 25 97 Facial 30 01/13/17 12:00 30 01/13/17 11:59 97.7 79 28 104/59 98 15.0 30 01/13/17 11:51 87 01/13/17 10:38 88 25 96 Facial 30 01/13/17 08:37 84 16 99 Facial 30 01/13/17 08:10 90 01/13/17 07:14 97.0 86 16 92/63 85 15.0 30 01/13/17 07:01 85 16 99 Facial 30 01/13/17 06:44 97.0 86 31 92/63 89 15.0 30 01/13/17 05:40 99 31 89 Facial 30 01/13/17 05:37 97.0 88 16 86/64 97 Bi-pap 15.0 30 01/13/17 03:29 95 26 95 Facial 30 01/13/17 03:19 97.0 87 16 85/60 96 15.0 30 01/13/17 01:00 95 18 97 Facial 30 01/13/17 00:44 97.0 101 31 98/60 92 Bi-pap 15.0 30 01/12/17 23:47 107 30 99 Facial 30 01/12/17 23:47 30 01/12/17 23:40 30 01/12/17 23:14 60 01/12/17 23:13 97.0 105 32 169/118 94 Bi-pap 15.0 60 01/12/17 22:19 119 54 Non-Rebreather 15.0 60 01/12/17 22:19 105 30 99/82 99 Bi-pap 60 01/12/17 22:07 119 54 97 Facial 60 01/12/17 21:26 97.0 124 20 112/79 97 Non-Rebreather 15.0 Intake and Output 01/12/17 01/13/17 19:00 07:00 Intake Total 1440 ml Balance 1440 ml Intake IV Total 1440 ml # Voids 1 Laboratory Tests Test 01/12/17 21:50 01/12/17 22:29 01/12/17 22:52 01/12/17 23:28 White Blood Count 19.0 K/UL (4.8-10.8) H Red Blood Count 5.22 M/UL (4.70-6.10) Hemoglobin 13.1 G/DL (14.2-18.0) L Hematocrit 41.1 % (42.0-52.0) L Mean Corpuscular Volume 79 FL (80-99) L Mean Corpuscular Hemoglobin 25.1 PG (27.0-31.0) L Mean Corpuscular Hemoglobin Concent 31.8 G/DL (32.0-36.0) L Red Cell Distribution Width 23.3 % (11.6-14.8) H Platelet Count 208 K/UL (150-450) Mean Platelet Volume 13.3 FL (6.5-10.1) H Neutrophils (%) (Auto) % (45.0-75.0) Lymphocytes (%) (Auto) % (20.0-45.0) Monocytes (%) (Auto) % (1.0-10.0) Eosinophils (%) (Auto) % (0.0-3.0) Basophils (%) (Auto) % (0.0-2.0) Differential Total Cells Counted 100 Neutrophils % (Manual) 76 % (45-75) H Lymphocytes % (Manual) 11 % (20-45) L Monocytes % (Manual) 7 % (1-10) Eosinophils % (Manual) 0 % (0-3) Basophils % (Manual) 0 % (0-2) Band Neutrophils 6 % (0-8) Platelet Estimate Adequate Platelet Morphology Normal Anisocytosis 1+ Sodium Level 153 mEQ/L (135-145) H Potassium Level 4.3 mEQ/L (3.4-4.9) Chloride Level 110 mEQ/L (98-107) H Carbon Dioxide Level 26 mEQ/L (20-30) Anion Gap 17 (5-15) H Blood Urea Nitrogen 71 mg/dL (7-23) H Creatinine 2.2 mg/dL (0.7-1.2) H Estimat Glomerular Filtration Rate 30.0 mL/min (>60) Glucose Level 143 mg/dL (74-106) H Lactic Acid Level 2.90 mmol/L (0.66-2.22) H 2.90 mmol/L (0.66-2.22) H Calcium Level 9.8 mg/dL (8.6-10.2) Total Bilirubin 0.5 mg/dL (0.0-1.2) Aspartate Amino Transf (AST/SGOT) 63 U/L (5-40) H Alanine Aminotransferase (ALT/SGPT) 52 U/L (3-41) H Alkaline Phosphatase 48 U/L (40-129) Total Creatine Kinase 330 U/L (38-174) H Creatine Kinase MB 4.4 ng/mL (< 6.7) Creatine Kinase MB Relative Index 1.3 Troponin I 0.33 ng/mL (<=0.30) *H Pro-B-Type Natriuretic Peptide 3461 pg/mL (0-125) H Total Protein 7.8 g/dL (6.6-8.7) Albumin 3.2 g/dL (3.5-5.2) L Globulin 4.6 g/dL Albumin/Globulin Ratio 0.6 (1.0-2.7) L Lipase 99 U/L (< 60) H Urine Color Yellow Urine Appearance Clear Urine pH 5 (4.5-8.0) Urine Specific [place] 1.010 (1.005-1.035) Urine Protein 1+ (NEGATIVE) H Urine Glucose (UA) Negative (NEGATIVE) Urine Ketones Negative (NEGATIVE) Urine Occult Blood Negative (NEGATIVE) Urine Nitrite Negative (NEGATIVE) Urine Bilirubin Negative (NEGATIVE) Urine Urobilinogen Normal MG/DL (0.0-1.0) Urine Leukocyte Esterase 1+ (NEGATIVE) H Urine RBC 0-2 /HPF (0 - 0) H Urine WBC 0-2 /HPF (0 - 0) Urine Squamous Epithelial Cells None /LPF (NONE/OCC) Urine Bacteria Few /HPF (NONE) Arterial Blood pH 7.509 (7.350-7.450) Arterial Blood Partial Pressure CO2 29.8 mmHg (35.0-45.0) L Arterial Blood Partial Pressure O2 121.5 mmHg (75.0-100.0) H Arterial Blood HCO3 23.2 mmol/L (22.0-26.0) Arterial Blood Oxygen Saturation 98.4 % (92.0-98.0) H Arterial Blood Base Excess 0.8 Foreign Test Positive Test 01/13/17 04:20 01/13/17 13:00 01/13/17 14:00 White Blood Count 17.8 K/UL (4.8-10.8) H Red Blood Count 4.29 M/UL (4.70-6.10) L Hemoglobin 10.1 G/DL (14.2-18.0) L Hematocrit 32.8 % (42.0-52.0) L Mean Corpuscular Volume 76 FL (80-99) L Mean Corpuscular Hemoglobin 23.6 PG (27.0-31.0) L Mean Corpuscular Hemoglobin Concent 30.8 G/DL (32.0-36.0) L Red Cell Distribution Width 24.2 % (11.6-14.8) H Platelet Count 162 K/UL (150-450) Mean Platelet Volume 13.8 FL (6.5-10.1) H Neutrophils (%) (Auto) 82.5 % (45.0-75.0) H Lymphocytes (%) (Auto) 10.2 % (20.0-45.0) L Monocytes (%) (Auto) 6.7 % (1.0-10.0) Eosinophils (%) (Auto) 0.0 % (0.0-3.0) Basophils (%) (Auto) 0.6 % (0.0-2.0) Sodium Level 155 mEQ/L (135-145) H Potassium Level 4.4 mEQ/L (3.4-4.9) Chloride Level 115 mEQ/L (98-107) H Carbon Dioxide Level 26 mEQ/L (20-30) Anion Gap 14 (5-15) Blood Urea Nitrogen 74 mg/dL (7-23) H Creatinine 1.9 mg/dL (0.7-1.2) H Estimat Glomerular Filtration Rate 35.5 mL/min (>60) Glucose Level 131 mg/dL (74-106) H Calcium Level 9.0 mg/dL (8.6-10.2) Phosphorus Level 2.9 mg/dL (2.5-4.8) Albumin 2.4 g/dL (3.5-5.2) L Urine Eosinophils None seen Urine Random Total Protein 25 mg/dL Urine Random Sodium 21 mmol/L Urine Creatinine 89.3 mg/dL Troponin I < 0.30 ng/mL (<=0.30) VOLODYMYR BLANCHARD January 13, 2017 19:23
[2017-01-13] MEDS ORDERED: Vancomycin 750mg/D5W 275ml IVPB SCH ×2 (21:00)
--- NOTE | 2017-01-13 21:19 | Consultation ---
DATE OF CONSULTATION: 01/13/2017 REFERRING PHYSICIAN: Johan Rangel D.O. REASON FOR CONSULTATION: renal failure. HISTORY OF PRESENT ILLNESS: This is an unfortunate 66-year-old male who was recently discharged, matter of fact she was discharged on 01/06/2017 after he was diagnosed with respiratory failure, pneumonia, malnutrition, presently on broad-spectrum antibiotics found to have a high possibility of aspiration. The patient was _ detention. Prior to discharge, she had creatinine of 0.9 she was sent to [facility] for shortness of breath . Upon admission, the patient found to have creatinine of 2.5, also found to be severely hypernatremic and dehydrated and shortness of breath. The patient was placed on BiPAP. The patient was admitted to hospital. I was called for management of renal disease and electrolyte imbalance. PAST MEDICAL HISTORY: Includin. History of recent PEG placement. 2. History of acute renal failure. 3. History of respiratory failure. 4. History of pneumonia. 5. History of hypertension 6. History of hypovolemia. 7. History of schizophrenia. 8. History of osteoarthritis. SOCIAL HISTORY: Lives [facility]. There is no chronic tobacco, alcohol, or drug use. FAMILY HISTORY: Unknown. REVIEW OF SYSTEMS: Unavailable due to the patient's condition and mental status. PHYSICAL EXAMINATION: GENERAL: The patient is an chronically ill contracted male, no acute distress. The patient is on BiPAP. VITAL SIGNS: The patient has temperature of 97 degrees, pulse rate 120, respiratory rate 20, blood pressure 110/60. HEAD AND NECK: extraocular movement intact. Pupils reactive to light and accommodation. Dry mucous membranes. LUNGS: Decreased breath sounds on both sides. CARDIAC: Regular rate and rhythm. S1 and S2. No murmur. No rub. ABDOMEN: Soft and nontender. EXTREMITIES: No edema. No clubbing. No cyanosis. contracture on both sides. LABORATORY AND DIAGNOSTIC DATA: Sodium 155, potassium 4.4, 115, creatinine 1.9. The patient has glucose of 131. Lactic acid of 2. Calcium of 9. The patient has albumin of 2.4. Urinalysis revealed specific gravity of 1015, protein 1+, leukocyte 1+, WBCs 0 to 2, RBCs 0 to 2. CBC revealed WBC count of 17,000, hemoglobin of 10, hematocrit of 32, and platelet count of 152,000. ASSESSMENT: 1. acute renal failure including acute tubular necrosis. 2. Renal azotemia. 3. Respiratory failure. 4. Malnutrition. 5. Hypotension and dehydration. 6. History of dementia. PLAN: continue current meds monitoring electrolyte avoid NSAID check FNA Check for proteinuria monitoring in put and out put Shayy Moore M.D. DR: Stephan JOB#: [id number] CC: OSCAR
--- NOTE | 2017-01-13 21:28 | History and Physical Report ---
DATE OF ADMISSION: 01/12/2017 TIME SEEN: 1 p.m. ATTENDING PHYSICIAN: Johan Rangel D.O. CONSULTANTS: 1. Misty Rojas M.D. 2. Ren Shah M.D. 3. CHIEF COMPLAINT: Shortness of breath, congestion, and weakness. BRIEF HISTORY: This is a 66-year-old male from [facility] presents to [facility] yesterday with history of increased shortness of breath and lethargy, was found to have pneumonia, sepsis, elevated troponin, and renal failure and admitted to [facility] for further care. Currently calm, on BiPAP, lethargic, sleeping in bed, not talking much. REVIEW OF SYSTEMS: Not available. PAST MEDICAL HISTORY: CHF, schizophrenia, arthritis, encephalopathy, DVT, acute kidney injury, COPD, and respiratory failure. PAST SURGICAL HISTORY: PEG. ALLERGIES: Denies. SOCIAL HISTORY: Unable to obtain. PHYSICAL EXAMINATION: GENERAL: The patient is lethargic in bed. BiPAP in place. Not talking much. VITAL SIGNS: Temperature 97, pulse 83, respirations 25, and blood pressure 104/59. CARDIOVASCULAR: No murmur. LUNGS: Poor air exchange. ABDOMEN: Bowel sounds are positive. Nontender and nondistended. EXTREMITIES: No cyanosis, clubbing, or edema. NEUROLOGIC: The patient moves all extremities, but does not follow commands. LABORATORY DATA: White count 17, hemoglobin/hematocrit 10/32, and platelets 162,000. Sodium 155, chloride 115, BUN/creatinine , and glucose 131. Urinalysis is 1+ leukocyte esterase, and 1+ protein. MEDICATIONS: Vancomycin, Zosyn, midodrine, heparin, Tylenol, MiraLax, Mylanta, nitroglycerin, Phenergan with codeine, DuoNeb, Zofran, and temazepam. ASSESSMENT: 1. Pneumonia. 2. Urinary tract infection. 3. Sepsis. 4. Anemia. 5. Elevated troponin. 6. Respiratory failure. 7. Chronic obstructive pulmonary disease. 8. Renal failure. 9. Congestive heart failure. 10. Gastroesophageal reflux disease. 11. Deep venous thrombosis. PLAN: 1. Continue pain medications. 2. O2 and pulmonary treatment. 3. Antibiotics per Infectious Disease. 4. Blood pressure and blood sugar control. 5. Dietary followup. 6. Psychiatry treatment. 7. CBC and BMP in the morning. 8. OT/PT and dietary evaluation. Johan Rangel D.O. DR: NATALIE JOB#: [id number] CC:
--- NOTE | 2017-01-13 21:38 | Consultation ---
DATE OF CONSULTATION: REQUESTING PHYSICIAN: Daniel Ramachandran M.D. REASON FOR CONSULTATION: Sepsis and pneumonia, recommendation for antibiotics therapy. HISTORY OF PRESENT ILLNESS: The patient is a 66-year-old male, who presented from [facility] due to worsening shortness of breath and fever. The patient had progressive dyspnea required oxygen four liters via nasal cannula. He was hypoxemic when paramedics arrived and started on nonrebreathable mask. No recent travel or sick contact. As per the record the patient was found to be hypoxemic upon arrival to the emergency room and required 60% of high-flow oxygen. His white count was around 19,000. Chest x-ray showed right lower lobe infiltrates suspicious for pneumonia. He was started on antibiotics and I was consulted by the primary provider for antibiotics treatment and management. As of note, the patient is poor historian, cannot provide any history. History was mainly obtained from the medical record. REVIEW OF SYSTEMS: Unable to obtain. PAST MEDICAL HISTORY: Significant for COPD, hypertension, congestive heart failure, anemia, dehydration, sepsis, and DVT. PAST SURGICAL HISTORY: Unknown. ALLERGIES: No known drug allergies. MEDICATIONS: The patient was started on vancomycin and cefepime by the admitting physician. For the rest of his medications, please refer to MAR. FAMILY HISTORY: Unknown. SOCIAL HISTORY: He is [facility] resident. No recent drugs, tobacco, or alcohol. PHYSICAL EXAMINATION: VITAL SIGNS: Temperature 97.7, pulse 83, respirations 25, pulse oximetry 97% on facial mask with FiO2 of 30%. GENERAL: Middle-aged male, lying in bed, on high-flow oxygen via mask, comfortable, not in distress. HEENT: Normocephalic and atraumatic. Pupils are reactive to light. Unable to assess oral mucosa due to the mask. NECK: Supple. No lymphadenopathy. CARDIOVASCULAR: Regular rate and rhythm. No murmur. LUNGS: Crackles with diminished breathing sound on the right lower lobe. ABDOMEN: Soft, nontender, and nondistended. Positive bowel sounds. No hepatosplenomegaly. EXTREMITIES: No edema or cyanosis. SKIN: No rash or hives. Small abrasion on the left lateral ankle and right hip blister. LABORATORY DATA: White count 17.8, hemoglobin of 10.1, and platelet count of 162,000. BUN of 74, creatinine of 1.9. Lactic acid of 2.9. Troponin of 0.33. Urinalysis showed +1 leukocyte esterase, WBC 0 to 2, and few bacteria. IMAGING: Chest x-ray showed interstitial disease within the right lung probably residual from nearly resolved congestive heart failure, pneumonia cannot be excluded. ASSESSMENT AND PLAN: 1. Severe sepsis with septic shock. We will send blood culture. Continue wide-spectrum antibiotics therapy pending his culture results. 2. Healthcare-acquired pneumonia. We will send sputum culture. Start Zosyn. Continue vancomycin renally dosed by the pharmacist. 3. Acute kidney failure due to sepsis. Recommend hydration and monitor urine output. Consult Renal. Avoid nephrotoxic medicines. 4. Acute respiratory failure due to the above, on BiPAP. Monitor ABG. Further management as per nursery rn. 5. Elevated troponin, rule out acute coronary syndrome. Recommend Cardiology consult and closely troponin monitor and radiation monitor. 6. Right hip blister, suspect bruises versus cellulitis. The patient already on wide-spectrum antibiotics therapy. I recommend offloading. Frankie Ratliff M.D. DR: Dary JOB#: [id number] CC:
[2017-01-14] VITALS: BP 102/56
[2017-01-14] MEDS ORDERED: Miralax 17gm pkt GT PRN (01:30)
[2017-01-14] MEDS: Piperacillin/Tazobactam 3.375 GM in D5W 110 ML IVPB SCH ×3 (01:35→17:21)
[2017-01-14] MEDS ORDERED: Promethazine/Codeine 5ml UD GT PRN (02:00)
[2017-01-14 04:00] VITALS: BP 104/65
[2017-01-14] MEDS ORDERED: Mylanta II UD 30ml GT PRN (04:00)
[2017-01-14 06:21] LABS: BASOPHILS % (AUTO) 0.5 % (0.0-2.0); EOSINOPHILS % (AUTO) 1.4 % (0.0-3.0); MEAN CORPUSCULAR HEMOGLOBIN 23.6 PG (27.0-31.0); MEAN CORPUSCULAR HGB CONC 30.5 G/DL (32.0-36.0); MEAN CORPUSCULAR VOLUME 77 FL (80-99); MEAN PLATELET VOLUME 15.8 FL (6.5-10.1); NEUTROPHILS % (AUTO) 77.1 % (45.0-75.0); PLATELET COUNT 141 K/UL (150-450); RED BLOOD COUNT 4.08 M/UL (4.70-6.10); RED CELL DISTRIBUTION WIDTH 24.6 % (11.6-14.8)
[2017-01-14 06:38] LABS: CREATININE 1.3 mg/dL (0.7-1.2); GLOMERULAR FILTRATION RATE 55.1 mL/min (>60); POTASSIUM 4.2 mEQ/L (3.4-4.9)
[2017-01-14 08:26] VITALS: BP 98/66
[2017-01-14] MEDS: Heparin 5000 units/ml inj SUBQ SCH (08:41)
--- NOTE | 2017-01-14 08:43 | General Progress Note ---
Assessment/Plan Problem List: (1) CHF (congestive heart failure) ICD Codes: I50.9 - Heart failure, unspecified SNOMED: 63918847 (2) Schizophrenia ICD Codes: F20.9 - Schizophrenia, unspecified SNOMED: 30732094 (3) Anemia ICD Codes: D64.9 - Anemia, unspecified SNOMED: 820080423 (4) Encephalopathy ICD Codes: G93.40 - Encephalopathy, unspecified SNOMED: 41804248, 297795574 (5) UTI (urinary tract infection) ICD Codes: N39.0 - Urinary tract infection, site not specified SNOMED: 22264213 (6) Pneumonia ICD Codes: J18.9 - Pneumonia, unspecified organism SNOMED: 603327575 (7) COPD (chronic obstructive pulmonary disease) ICD Codes: J44.9 - Chronic obstructive pulmonary disease, unspecified SNOMED: 41212248 (8) Acute respiratory failure ICD Codes: J96.00 - Acute respiratory failure, unspecified whether with hypoxia or hypercapnia SNOMED: 91058962 (9) Elevated troponin ICD Codes: R74.8 - Abnormal levels of other serum enzymes SNOMED: 621514577, 721922366 Status: stable, progressing, tolerating diet Assessment/Plan bipap abx cbc bmp am cardio neph f/u Subjective Allergies: Coded Allergies: No Known Allergies (Unverified , 12/05/15) All Systems: reviewed and negative except above Subjective on bipap confused Objective Last 24 Hour Vital Signs Date Time Temp Pulse Resp B/P Pulse Ox O2 Delivery O2 Flow Rate FiO2 01/14/17 08:26 97.9 61 24 98/66 99 30 01/14/17 08:00 30 01/14/17 06:54 77 24 96 Facial 30 01/14/17 05:18 81 22 95 Facial 30 01/14/17 04:00 60 01/14/17 04:00 30 01/14/17 04:00 97.3 56 15 104/65 96 Bi-pap 01/14/17 03:21 78 24 95 Facial 30 01/14/17 01:16 80 24 98 Facial 30 01/14/17 00:00 64 01/14/17 00:00 97.7 70 17 102/56 95 Bi-pap 01/14/17 00:00 30 01/13/17 23:20 75 25 97 Facial 30 01/13/17 20:47 82 25 98 Facial 30 01/13/17 20:00 30 01/13/17 20:00 97.5 59 16 92/74 95 Simple Mask 01/13/17 20:00 71 01/13/17 19:15 79 26 96 Facial 30 01/13/17 16:34 79 25 96 Facial 30 01/13/17 16:00 30 01/13/17 16:00 97.7 79 28 102/61 97 30 01/13/17 15:09 74 01/13/17 14:53 85 25 97 Facial 30 01/13/17 12:58 83 25 97 Facial 30 01/13/17 12:00 30 01/13/17 11:59 97.7 79 28 104/59 98 15.0 30 01/13/17 11:51 87 01/13/17 10:38 88 25 96 Facial 30 Intake and Output 01/13/17 01/14/17 19:00 07:00 Intake Total 737.5 ml 1067.500 ml Output Total 950 ml 900 ml Balance -212.5 ml 167.500 ml Intake Free Water 600 ml 600 ml IV Total 137.5 ml 467.500 ml Output Urine Total 950 ml 900 ml Laboratory Tests 01/13/17 13:00: Urine Eosinophils None seen, Urine Random Total Protein 25, Urine Random Sodium 21, Urine Creatinine 89.3 01/13/17 14:00: Troponin I < 0.30 01/14/17 03:50: White Blood Count 10.0, Red Blood Count 4.08L, Hemoglobin 9.6L, Hematocrit 31.5L , Mean Corpuscular Volume 77L, Mean Corpuscular Hemoglobin 23.6L, Mean Corpuscular Hemoglobin Concent 30.5L, Red Cell Distribution Width 24.6H, Platelet Count 141L, Mean Platelet Volume 15.8H, Neutrophils (%) (Auto) 77.1H, Lymphocytes (%) (Auto) 13.0L, Monocytes (%) (Auto) 8.0, Eosinophils (%) (Auto) 1.4, Basophils (%) (Auto) 0.5, Sodium Level 157H, Potassium Level 4.2, Chloride Level 117H, Carbon Dioxide Level 26, Anion Gap 14, Blood Urea Nitrogen 51H, Creatinine 1.3H, Estimat Glomerular Filtration Rate 55.1, Glucose Level 85, Calcium Level 9.0 Height (Feet): 6 Height (Inches): 0.00 Weight (Pounds): 150 General Appearance: lethargic, confused EENT: normal ENT inspection Neck: normal alignment Cardiovascular: normal peripheral pulses, normal rate, regular rhythm Respiratory/Chest: chest wall non-tender, lungs clear, normal breath sounds Abdomen: normal bowel sounds, non tender, soft Extremities: normal inspection Edema: no edema noted Arm (L), no edema noted Arm (R), no edema noted Leg (L), no edema noted Leg (R), no edema noted Pedal (L), no edema noted Pedal (R), no edema noted Generalized Neurologic: motor weakness Skin: normal pigmentation, warm/dry ALONDRA SINGH January 14, 2017 08:43
--- NOTE | 2017-01-14 09:39 | Pulmonology Progress Note ---
Assessment/Plan Problems: (1) Severe sepsis with septic shock (2) Acute respiratory failure (3) COPD (chronic obstructive pulmonary disease) (4) Alzheimer's dementia (5) Cachexia (6) Feeding by G-tube Assessment/Plan titrate bipap f/u pulse oximeter continue antibiotics check cultures dvt prophylaxis tolerating diet Subjective ROS Limited/Unobtainable: Yes Interval Events: still on bipap, looks comfortable Constitutional: Reports: no symptoms Allergies: Coded Allergies: No Known Allergies (Unverified , 12/05/15) Objective Last 24 Hour Vital Signs Date Time Temp Pulse Resp B/P Pulse Ox O2 Delivery O2 Flow Rate FiO2 01/14/17 08:50 85 25 98 Facial 30 01/14/17 08:26 97.9 61 24 98/66 99 30 01/14/17 08:02 70 01/14/17 08:00 30 01/14/17 06:54 77 24 96 Facial 30 01/14/17 05:18 81 22 95 Facial 30 01/14/17 04:00 60 01/14/17 04:00 30 01/14/17 04:00 97.3 56 15 104/65 96 Bi-pap 01/14/17 03:21 78 24 95 Facial 30 01/14/17 01:16 80 24 98 Facial 30 01/14/17 00:00 64 01/14/17 00:00 97.7 70 17 102/56 95 Bi-pap 01/14/17 00:00 30 01/13/17 23:20 75 25 97 Facial 30 01/13/17 20:47 82 25 98 Facial 30 01/13/17 20:00 30 01/13/17 20:00 97.5 59 16 92/74 95 Simple Mask 01/13/17 20:00 71 01/13/17 19:15 79 26 96 Facial 30 01/13/17 16:34 79 25 96 Facial 30 01/13/17 16:00 30 01/13/17 16:00 97.7 79 28 102/61 97 30 01/13/17 15:09 74 01/13/17 14:53 85 25 97 Facial 30 01/13/17 12:58 83 25 97 Facial 30 01/13/17 12:00 30 01/13/17 11:59 97.7 79 28 104/59 98 15.0 30 01/13/17 11:51 87 01/13/17 10:38 88 25 96 Facial 30 Intake and Output 01/13/17 01/14/17 19:00 07:00 Intake Total 737.5 ml 1067.500 ml Output Total 950 ml 900 ml Balance -212.5 ml 167.500 ml Intake Free Water 600 ml 600 ml IV Total 137.5 ml 467.500 ml Output Urine Total 950 ml 900 ml General Appearance: cachetic HEENT: normocephalic, atraumatic Respiratory/Chest: chest wall non-tender, lungs clear Cardiovascular: normal peripheral pulses, normal rate Abdomen: normal bowel sounds, soft, non tender Genitourinary: normal external genitalia Extremities: no cyanosis Skin: no rash 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 Complete Laboratory Tests 01/13/17 13:00: Urine Eosinophils None seen, Urine Random Total Protein 25, Urine Random Sodium 21, Urine Creatinine 89.3 01/13/17 14:00: Troponin I < 0.30 01/14/17 03:50: White Blood Count 10.0, Red Blood Count 4.08L, Hemoglobin 9.6L, Hematocrit 31.5L , Mean Corpuscular Volume 77L, Mean Corpuscular Hemoglobin 23.6L, Mean Corpuscular Hemoglobin Concent 30.5L, Red Cell Distribution Width 24.6H, Platelet Count 141L, Mean Platelet Volume 15.8H, Neutrophils (%) (Auto) 77.1H, Lymphocytes (%) (Auto) 13.0L, Monocytes (%) (Auto) 8.0, Eosinophils (%) (Auto) 1.4, Basophils (%) (Auto) 0.5, Sodium Level 157H, Potassium Level 4.2, Chloride Level 117H, Carbon Dioxide Level 26, Anion Gap 14, Blood Urea Nitrogen 51H, Creatinine 1.3H, Estimat Glomerular Filtration Rate 55.1, Glucose Level 85, Calcium Level 9.0, Ferritin [Pending] Current Medications Medications (Trade) Dose Ordered Sig/Gloria Route PRN Reason Start Time Stop Time Status Last Admin Dose Admin Acetaminophen (Tylenol) 650 mg Q4H PRN ORAL fever 01/12/17 22:00 02/11/17 21:59 Al Hydroxide/Mg Hydroxide (Mylanta II) 30 ml Q6H PRN GT dyspepsia 01/14/17 04:00 02/13/17 03:59 Albuterol/ Ipratropium (DuoNeb 0.5-3(2.5)mg/3ml) 3 ml Q4H PRN HHN Shortness of Breath 01/12/17 22:00 01/17/17 21:59 Enoxaparin Sodium (Lovenox) 70 mg EVERY 12 HOURS SUBQ 01/14/17 21:00 02/13/17 20:59 UNV Midodrine (Pro-Amatine) 5 mg THREE TIMES A DAY GT 01/14/17 09:00 02/13/17 08:59 01/14/17 08:41 Nitroglycerin (Ntg) 0.4 mg Q5MIN X 3 DOSES PRN SL Prn Chest Pain 01/12/17 22:00 02/11/17 21:59 Ondansetron HCl (Zofran) 4 mg Q6H PRN IVP Nausea & Vomiting 01/12/17 22:00 02/11/17 21:59 Piperacillin Sod/ Tazobactam Sod/ Dextrose (Zosyn/D5W) 110 ml @ 27.5 mls/hr Q8H IVPB 01/13/17 10:00 01/20/17 09:59 01/14/17 09:31 Polyethylene Glycol (Miralax) 17 gm DAILYPRN PRN GT Constipation 01/14/17 01:30 02/13/17 01:29 Promethazine HCl/ Codeine (Phenergan with Codeine) 5 ml Q4H PRN GT For Cough 01/14/17 02:00 02/13/17 01:59 Temazepam (Restoril) 15 mg HSPRN PRN GT Insomnia 01/14/17 01:30 01/21/17 01:29 Vancomycin HCl 750 mg/Dextrose 275 ml @ 183.708 mls/hr Q24H IVPB 01/13/17 21:00 01/18/17 20:59 01/13/17 21:01 Vancomycin HCl 1 ea 1 ea DAILY PRN MISC Per rx protocol 01/12/17 22:00 02/11/17 21:59 ALMA LINDO January 14, 2017 09:39
[2017-01-14] MEDS: Enoxaparin Sodium 300mg/3ml vial SUBQ SCH ×2 (11:17→21:24)
[2017-01-14 11:40] LABS: INR 1.1 (0.9-1.1); PROTHROMBIN TIME 10.7 SEC (9.30-11.50)
[2017-01-14 12:19] VITALS: BP 96/57
[2017-01-14 12:32] LABS: PSA TOTAL 0.6 ng/mL (< 4.5)
[2017-01-14 12:43] LABS: ALBUMIN/GLOBULIN RATIO 0.6 (1.0-2.7); CALCIUM 8.8 mg/dL (8.6-10.2); CREATININE 1.3 mg/dL (0.7-1.2); GLOMERULAR FILTRATION RATE 55.1 mL/min (>60); POTASSIUM 4.2 mEQ/L (3.4-4.9); TOTAL PROTEIN 6.1 g/dL (6.6-8.7)
--- NOTE | 2017-01-14 14:30 | Infectious Diseases Prog Note ---
Assessment/Plan Problems: (1) Severe sepsis with septic shock Assessment & Plan: blood culture grew gram positive cocci from one bottle , most likely contaminant , will continue wide spectrum antibiotics pending further culture results (2) HCAP (healthcare-associated pneumonia) Assessment & Plan: await sputum culture and continue zosyn with vancomycin renally dosed by pharmacist (3) MAR (acute kidney injury) Assessment & Plan: due to sepsis , recommend hydration, monitor UOP, consult renal (4) Acute respiratory failure Assessment & Plan: due to the above, on BIPAP, monitor ABG, further management as per thread spooler (5) Elevated troponin Assessment & Plan: rule out ACS, cardiology is following , continue troponin monitor Subjective ROS Limited/Unobtainable: Yes Allergies: Coded Allergies: No Known Allergies (Unverified , 12/05/15) Subjective he was up in bed, still on BIPAP, breathing ok with no tachypnea or distress Objective Vital Signs Last 24 Hour Vital Signs Date Time Temp Pulse Resp B/P Pulse Ox O2 Delivery O2 Flow Rate FiO2 01/14/17 12:40 81 23 96 Facial 30 01/14/17 12:19 98.2 73 24 96/57 99 30 01/14/17 12:00 30 01/14/17 11:40 76 01/14/17 10:50 79 25 98 Facial 30 01/14/17 08:50 85 25 98 Facial 30 01/14/17 08:26 97.9 61 24 98/66 99 30 01/14/17 08:02 70 01/14/17 08:00 30 01/14/17 06:54 77 24 96 Facial 30 01/14/17 05:18 81 22 95 Facial 30 01/14/17 04:00 60 01/14/17 04:00 30 01/14/17 04:00 97.3 56 15 104/65 96 Bi-pap 01/14/17 03:21 78 24 95 Facial 30 01/14/17 01:16 80 24 98 Facial 30 01/14/17 00:00 64 01/14/17 00:00 97.7 70 17 102/56 95 Bi-pap 01/14/17 00:00 30 01/13/17 23:20 75 25 97 Facial 30 01/13/17 20:47 82 25 98 Facial 30 01/13/17 20:00 30 01/13/17 20:00 97.5 59 16 92/74 95 Simple Mask 01/13/17 20:00 71 01/13/17 19:15 79 26 96 Facial 30 01/13/17 16:34 79 25 96 Facial 30 01/13/17 16:00 30 01/13/17 16:00 97.7 79 28 102/61 97 30 01/13/17 15:09 74 01/13/17 14:53 85 25 97 Facial 30 Height (Feet): 6 Height (Inches): 0.00 Weight (Pounds): 150 General Appearance: WD/WN, no acute distress HEENT: normocephalic, atraumatic, anicteric, mucous membranes moist Respiratory/Chest: chest wall non-tender, normal breath sounds, no respiratory distress, no accessory muscle use, decreased breath sounds, crackles/rales Cardiovascular: normal peripheral pulses, normal rate, regular rhythm, no JVD Abdomen: normal bowel sounds, soft, non tender, no organomegaly, non distended , no mass Extremities: no cyanosis, no clubbing Skin: no rash, no lesions Microbiology Date/Time Source Procedure Growth Status 01/12/17 21:50 Blood Blood Culture - Preliminary Resulted 01/12/17 21:35 Blood Blood Culture - Preliminary NO GROWTH AFTER 24 HOURS Resulted 01/12/17 22:30 Nasal Nares MRSA Culture - Final NO METHICILLIN RESISTANT STAPH AUREUS... Complete Laboratory Tests Test 01/14/17 03:50 01/14/17 11:15 White Blood Count 10.0 K/UL (4.8-10.8) Red Blood Count 4.08 M/UL (4.70-6.10) L Hemoglobin 9.6 G/DL (14.2-18.0) L Hematocrit 31.5 % (42.0-52.0) L Mean Corpuscular Volume 77 FL (80-99) L Mean Corpuscular Hemoglobin 23.6 PG (27.0-31.0) L Mean Corpuscular Hemoglobin Concent 30.5 G/DL (32.0-36.0) L Red Cell Distribution Width 24.6 % (11.6-14.8) H Platelet Count 141 K/UL (150-450) L Mean Platelet Volume 15.8 FL (6.5-10.1) H Neutrophils (%) (Auto) 77.1 % (45.0-75.0) H Lymphocytes (%) (Auto) 13.0 % (20.0-45.0) L Monocytes (%) (Auto) 8.0 % (1.0-10.0) Eosinophils (%) (Auto) 1.4 % (0.0-3.0) Basophils (%) (Auto) 0.5 % (0.0-2.0) Sodium Level 157 mEQ/L (135-145) H 151 mEQ/L (135-145) H Potassium Level 4.2 mEQ/L (3.4-4.9) 4.2 mEQ/L (3.4-4.9) Chloride Level 117 mEQ/L (98-107) H 113 mEQ/L (98-107) H Carbon Dioxide Level 26 mEQ/L (20-30) 26 mEQ/L (20-30) Anion Gap 14 (5-15) 12 (5-15) Blood Urea Nitrogen 51 mg/dL (7-23) H 52 mg/dL (7-23) H Creatinine 1.3 mg/dL (0.7-1.2) H 1.3 mg/dL (0.7-1.2) H Estimat Glomerular Filtration Rate 55.1 mL/min (>60) 55.1 mL/min (>60) Glucose Level 85 mg/dL (74-106) 94 mg/dL (74-106) Calcium Level 9.0 mg/dL (8.6-10.2) 8.8 mg/dL (8.6-10.2) Ferritin 237 ng/mL (10-230) H Prothrombin Time 10.7 SEC (9.30-11.50) Prothromb Time International Ratio 1.1 (0.9-1.1) Total Bilirubin 0.3 mg/dL (0.0-1.2) Aspartate Amino Transf (AST/SGOT) 227 U/L (5-40) H Alanine Aminotransferase (ALT/SGPT) 110 U/L (3-41) H Alkaline Phosphatase 41 U/L (40-129) Lactate Dehydrogenase 275 U/L (135-230) H Total Protein 6.1 g/dL (6.6-8.7) L Albumin 2.5 g/dL (3.5-5.2) L Globulin 3.6 g/dL Albumin/Globulin Ratio 0.6 (1.0-2.7) L Carcinoembryonic Antigen 2.9 ng/mL Prostate Specific Antigen 0.6 ng/mL (< 4.5) Vitamin B12 Level 1243 pg/mL (211-946) H Current Medications Medications (Trade) Dose Ordered Sig/Gloria Route PRN Reason Start Time Stop Time Status Last Admin Dose Admin Acetaminophen (Tylenol) 650 mg Q4H PRN ORAL fever 01/12/17 22:00 02/11/17 21:59 Al Hydroxide/Mg Hydroxide (Mylanta II) 30 ml Q6H PRN GT dyspepsia 01/14/17 04:00 02/13/17 03:59 Albuterol/ Ipratropium (DuoNeb 0.5-3(2.5)mg/3ml) 3 ml Q4H PRN HHN Shortness of Breath 01/12/17 22:00 01/17/17 21:59 Enoxaparin Sodium (Lovenox) 70 mg EVERY 12 HOURS SUBQ 01/14/17 11:00 02/13/17 10:59 01/14/17 11:17 Midodrine (Pro-Amatine) 5 mg THREE TIMES A DAY GT 01/14/17 09:00 02/13/17 08:59 01/14/17 12:26 Nitroglycerin (Ntg) 0.4 mg Q5MIN X 3 DOSES PRN SL Prn Chest Pain 01/12/17 22:00 02/11/17 21:59 Ondansetron HCl (Zofran) 4 mg Q6H PRN IVP Nausea & Vomiting 01/12/17 22:00 02/11/17 21:59 Piperacillin Sod/ Tazobactam Sod/ Dextrose (Zosyn/D5W) 110 ml @ 27.5 mls/hr Q8H IVPB 01/13/17 10:00 01/20/17 09:59 01/14/17 09:31 Polyethylene Glycol (Miralax) 17 gm DAILYPRN PRN GT Constipation 01/14/17 01:30 02/13/17 01:29 Promethazine HCl/ Codeine (Phenergan with Codeine) 5 ml Q4H PRN GT For Cough 01/14/17 02:00 02/13/17 01:59 Temazepam (Restoril) 15 mg HSPRN PRN GT Insomnia 01/14/17 01:30 01/21/17 01:29 Vancomycin HCl 750 mg/Dextrose 275 ml @ 183.708 mls/hr Q24H IVPB 01/13/17 21:00 01/18/17 20:59 01/13/17 21:01 Vancomycin HCl 1 ea 1 ea DAILY PRN MISC Per rx protocol 01/12/17 22:00 02/11/17 21:59 Frankie Ratliff M.D. January 14, 2017 14:30
[2017-01-14] MEDS ORDERED: Tubing IV Secondary IV ONE (15:41)
[2017-01-14] MEDS ORDERED: NS 275ml ONE (15:41)
[2017-01-14 16:16] VITALS: BP 92/51
[2017-01-14] MEDS ORDERED: Warfarin Sodium 5mg ORAL ONE (17:30)
--- NOTE | 2017-01-14 17:34 | Cardiology Report ---
APPROVED REPORT EKG Measurement Heart [id number] Sinus tachycardia with short LA Otherwise normal ECG
--- NOTE | 2017-01-14 19:35 | Nephrology Progress Note ---
Assessment/Plan Assessment 1.ARF 2.ckd 3.Malnutrition 4.Hypernatremia 5.respiratory failure Plan plan to continue free water monitoring electrolyte replace electrolyte nutritional support Subjective ROS Limited/Unobtainable: Yes Constitutional: Reports: no symptoms HEENT: Reports: no symptoms Genitourinary: Reports: no symptoms Neurologic/Psychiatric: Reports: no symptoms Subjective NAD Objective Objective Last 24 Hour Vital Signs Date Time Temp Pulse Resp B/P Pulse Ox O2 Delivery O2 Flow Rate FiO2 01/14/17 16:40 88 24 97 Facial 30 01/14/17 16:16 97.9 69 19 92/51 97 30 01/14/17 16:00 30 01/14/17 15:20 88 26 97 Facial 30 01/14/17 15:17 68 01/14/17 12:40 81 23 96 Facial 30 01/14/17 12:19 98.2 73 24 96/57 99 30 01/14/17 12:00 30 01/14/17 11:40 76 01/14/17 10:50 79 25 98 Facial 30 01/14/17 08:50 85 25 98 Facial 30 01/14/17 08:26 97.9 61 24 98/66 99 30 01/14/17 08:02 70 01/14/17 08:00 30 01/14/17 06:54 77 24 96 Facial 30 01/14/17 05:18 81 22 95 Facial 30 01/14/17 04:00 60 01/14/17 04:00 30 01/14/17 04:00 97.3 56 15 104/65 96 Bi-pap 01/14/17 03:21 78 24 95 Facial 30 01/14/17 01:16 80 24 98 Facial 30 01/14/17 00:00 64 01/14/17 00:00 97.7 70 17 102/56 95 Bi-pap 01/14/17 00:00 30 01/13/17 23:20 75 25 97 Facial 30 01/13/17 20:47 82 25 98 Facial 30 01/13/17 20:00 30 01/13/17 20:00 97.5 59 16 92/74 95 Simple Mask 01/13/17 20:00 71 Intake and Output 01/13/17 01/14/17 19:00 07:00 Intake Total 737.5 ml 1067.500 ml Output Total 950 ml 900 ml Balance -212.5 ml 167.500 ml Intake Free Water 600 ml 600 ml IV Total 137.5 ml 467.500 ml Output Urine Total 950 ml 900 ml Laboratory Tests 01/14/17 03:50: White Blood Count 10.0, Red Blood Count 4.08L, Hemoglobin 9.6L, Hematocrit 31.5L , Mean Corpuscular Volume 77L, Mean Corpuscular Hemoglobin 23.6L, Mean Corpuscular Hemoglobin Concent 30.5L, Red Cell Distribution Width 24.6H, Platelet Count 141L, Mean Platelet Volume 15.8H, Neutrophils (%) (Auto) 77.1H, Lymphocytes (%) (Auto) 13.0L, Monocytes (%) (Auto) 8.0, Eosinophils (%) (Auto) 1.4, Basophils (%) (Auto) 0.5, Sodium Level 157H, Potassium Level 4.2, Chloride Level 117H, Carbon Dioxide Level 26, Anion Gap 14, Blood Urea Nitrogen 51H, Creatinine 1.3H, Estimat Glomerular Filtration Rate 55.1, Glucose Level 85, Calcium Level 9.0, Ferritin 237H 01/14/17 11:15: Sodium Level 151H, Potassium Level 4.2, Chloride Level 113H, Carbon Dioxide Level 26, Anion Gap 12, Blood Urea Nitrogen 52H, Creatinine 1.3H, Estimat Glomerular Filtration Rate 55.1, Glucose Level 94, Calcium Level 8.8, Prothrombin Time 10.7, Prothromb Time International Ratio 1.1, Total Bilirubin 0.3, Aspartate Amino Transf (AST/SGOT) 227H, Alanine Aminotransferase (ALT/SGPT ) 110H, Alkaline Phosphatase 41, Lactate Dehydrogenase 275H, Total Protein 6.1L , Albumin 2.5L, Globulin 3.6, Albumin/Globulin Ratio 0.6L, Carcinoembryonic Antigen 2.9, Prostate Specific Antigen 0.6, Vitamin B12 Level 1243H Height (Feet): 6 Height (Inches): 0.00 Weight (Pounds): 150 Objective HEAD AND NECK: extraocular movement intact. Pupils reactive to light and accommodation. Dry mucous membranes. LUNGS: Decreased breath sounds on both sides. CARDIAC: Regular rate and rhythm. S1 and S2. No murmur. No rub. ABDOMEN: Soft and nontender. EXTREMITIES: No edema. No clubbing. No cyanosis. contracture on both sides. BAHMANI,BARTOLOME January 14, 2017 19:35
[2017-01-14 20:00] VITALS: BP 109/61
[2017-01-14] MEDS: Vancomycin 1250mg/D5W 275ml IVPB SCH ×2 (21:22)
[2017-01-15 00:59] VITALS: BP 116/55
[2017-01-15] MEDS: Piperacillin/Tazobactam 3.375 GM in D5W 110 ML IVPB SCH ×2 (01:56→11:00)
--- NOTE | 2017-01-15 02:18 | Consultation ---
DATE OF CONSULTATION: 01/14/2017 HEMATOLOGY/ONCOLOGY CONSULTATION CONSULTING PHYSICIAN: Mello Freedman M.D. ATTENDING PHYSICIAN: Johan Rangel D.O. REASON FOR CONSULTATION: Significant anemia. CURRENT COMPLAINT AND HISTORY OF PRESENT ILLNESS: Dear Dr. Johan Rangel, Today, I had an opportunity to see one of your patients, who as you are well aware is a 66-year-old delightful gentleman with a past medical history remarkable for coronary artery disease, hypertension, CHF, history of DVT, acute kidney injury, COPD, respiratory failure, arthritis, and encephalopathy. The patient ended up to have congestion, shortness of breath, and weakness. During evaluation, it was found that the patient developed leukocytosis and anemia. My service was called to handle the issue of blood dyscrasia. PAST MEDICAL HISTORY: 1. Coronary artery disease. 2. Hypertension. 3. CHF. 4. Encephalopathy. 5. History of DVT of right lower extremity. 6. Respiratory failure. 7. Pneumonia. 8. COPD. 9. GERD. 10. Sepsis. 11. UTI. ALLERGIES: NKDA. FAMILY HISTORY: Noncontributory. SOCIAL HISTORY: No history of smoking. No history of alcohol abuse. No history of illicit drug use. REVIEW OF SYSTEMS: General Description: The patient is not in any significant distress, but was chronically ill. Respiratory: Mild shortness of breath on exertion. Gastrointestinal: The patient claims constipation. Neuromuscular: The patient claims muscle aches. PHYSICAL EXAMINATION: VITAL SIGNS: T-max 97 degrees, respiratory rate 20, heart rate 83, and blood pressure 130/80. HEENT: Head is normocephalic and atraumatic. NECK: Supple. No thyroid enlargement. No lymphadenopathy. LUNGS: Decreased breath sounds bilaterally with few a rhonchi in the bases. HEART: S1 and S2 regular. ABDOMEN: Soft and benign. No organomegaly present. Bowel sounds present. EXTREMITIES: No cyanosis, clubbing, or edema. LABORATORY DATA: WBC 10.0, hemoglobin 9.6, hematocrit 31.5, and platelets 141,000. Coagulation shows INR 1.1. Chemistry showed creatinine 1.3. Ferritin is 237. IMPRESSION: 1. Leukocytosis with a left shift. 2. Anemia of chronic disease. 3. Anemia of iron deficiency. 4. Decreased hemoglobin and hematocrit, rule out gastrointestinal bleed. 5. Anemia of kidney disease. 6. Acute kidney injury. 7. Thrombocytopenia, multifactorial. 8. Acute respiratory failure. 9. Pneumonia. 10. Chronic obstructive pulmonary disease. 11. History of recent percutaneous endoscopic gastrostomy tube placement. 12. Dysphagia. 13. Acute renal failure. 14. Malnutrition. 15. Dehydration. 16. Coronary artery disease. 17. Hypertension. 18. Congestive heart failure. 19. History of deep venous thrombosis of the right lower extremity. 20. Anticoagulation with Lovenox. 21. Encephalopathy. 22. Failure to thrive. 23. Gastroesophageal reflux disease. 24. Sepsis. 25. Septic shock. 26. Alzheimer's. 27. Cachexia. RECOMMENDATIONS: 1. Watch count. 2. Watch coagulopathy. 3. PRBC transfusion on a p.r.n. basis. 4. Venous Doppler of the bilateral lower extremity to rule out DVT. 5. Lovenox subcutaneous. 6. Skin care. 7. Nutrition. 8. Respiratory treatment. 9. Close followup. Dear Dr. Johan Rangel, I greatly appreciate the opportunity to participate in the care of one of your patients. It is a privilege this interesting and challenging case. Mello Freedman MD DR: NIRMALA JOB#: [id number] CC:
[2017-01-15 04:00] VITALS: BP 114/67
[2017-01-15 07:01] LABS: ALANINE AMINOTRANSFERASE 155 U/L (3-41); ALBUMIN/GLOBULIN RATIO 0.6 (1.0-2.7); ANION GAP 14 (5-15); ASPARTATE AMINO TRANSFERASE 286 U/L (5-40); CALCIUM 8.9 mg/dL (8.6-10.2); CARBON DIOXIDE 24 mEQ/L (20-30); CHLORIDE 114 mEQ/L (98-107); CREATININE 1.2 mg/dL (0.7-1.2); GLOMERULAR FILTRATION RATE > 60 mL/min (>60); HEMOLYSIS 4; MAGNESIUM 2.1 mg/dL (1.7-2.5); PHOSPHORUS 3.5 mg/dL (2.5-4.8); POTASSIUM 4.4 mEQ/L (3.4-4.9); SODIUM 152 mEQ/L (135-145); TOTAL PROTEIN 6.4 g/dL (6.6-8.7)
[2017-01-15 07:04] LABS: BASOPHILS % (AUTO) 2.5 % (0.0-2.0); EOSINOPHILS % (AUTO) 6.2 % (0.0-3.0); LYMPHOCYTES % (AUTO) 15.7 % (20.0-45.0); MEAN CORPUSCULAR HEMOGLOBIN 22.8 PG (27.0-31.0); MEAN CORPUSCULAR HGB CONC 29.3 G/DL (32.0-36.0); MEAN CORPUSCULAR VOLUME 78 FL (80-99); MEAN PLATELET VOLUME 14.1 FL (6.5-10.1); MONOCYTES % (AUTO) 14.5 % (1.0-10.0); PLATELET COUNT 153 K/UL (150-450); RED BLOOD COUNT 4.23 M/UL (4.70-6.10); RED CELL DISTRIBUTION WIDTH 23.7 % (11.6-14.8); WHITE BLOOD COUNT 4.3 K/UL (4.8-10.8)
[2017-01-15 08:00] VITALS: BP 106/71
--- NOTE | 2017-01-15 08:32 | General Progress Note ---
Assessment/Plan Problem List: (1) CHF (congestive heart failure) ICD Codes: I50.9 - Heart failure, unspecified SNOMED: 12245398 (2) Schizophrenia ICD Codes: F20.9 - Schizophrenia, unspecified SNOMED: 64679727 (3) Anemia ICD Codes: D64.9 - Anemia, unspecified SNOMED: 555815254 (4) Encephalopathy ICD Codes: G93.40 - Encephalopathy, unspecified SNOMED: 93392446, 058905328 (5) UTI (urinary tract infection) ICD Codes: N39.0 - Urinary tract infection, site not specified SNOMED: 13726678 (6) Pneumonia ICD Codes: J18.9 - Pneumonia, unspecified organism SNOMED: 807927459 (7) COPD (chronic obstructive pulmonary disease) ICD Codes: J44.9 - Chronic obstructive pulmonary disease, unspecified SNOMED: 06700253 (8) Acute respiratory failure ICD Codes: J96.00 - Acute respiratory failure, unspecified whether with hypoxia or hypercapnia SNOMED: 32017239 (9) Elevated troponin ICD Codes: R74.8 - Abnormal levels of other serum enzymes SNOMED: 353292853, 540296310 Status: stable, progressing, tolerating diet Assessment/Plan bipap abx cbc bmp am cardio neph f/u Subjective Constitutional: Reports: weakness Allergies: Coded Allergies: No Known Allergies (Unverified , 12/05/15) All Systems: reviewed and negative except above Subjective on bipap confused Objective Last 24 Hour Vital Signs Date Time Temp Pulse Resp B/P Pulse Ox O2 Delivery O2 Flow Rate FiO2 01/15/17 07:10 70 32 97 Facial 30 01/15/17 04:00 30 01/15/17 04:00 98.4 65 18 114/67 99 Mechanical Ventilator 30 01/15/17 04:00 72 01/15/17 03:25 88 20 99 Facial 30 01/15/17 01:20 90 30 98 Facial 30 01/15/17 00:59 97.9 70 28 116/55 97 Bi-pap 30 01/15/17 00:00 30 01/15/17 00:00 64 01/14/17 22:58 94 30 95 Facial 30 01/14/17 20:45 89 26 97 Facial 30 01/14/17 20:00 30 01/14/17 20:00 67 01/14/17 20:00 98.2 60 28 109/61 99 Bi-pap 30 01/14/17 18:50 90 26 98 Facial 30 01/14/17 16:40 88 24 97 Facial 30 01/14/17 16:16 97.9 69 19 92/51 97 30 01/14/17 16:00 30 01/14/17 15:20 88 26 97 Facial 30 01/14/17 15:17 68 01/14/17 12:40 81 23 96 Facial 30 01/14/17 12:19 98.2 73 24 96/57 99 30 01/14/17 12:00 30 01/14/17 11:40 76 01/14/17 10:50 79 25 98 Facial 30 01/14/17 08:50 85 25 98 Facial 30 Intake and Output 01/14/17 01/15/17 19:00 07:00 Intake Total 737.5 ml 1067.5 ml Output Total 950 ml 500 ml Balance -212.5 ml 567.5 ml Intake Free Water 600 ml 600 ml IV Total 137.5 ml 467.5 ml Output Urine Total 950 ml 500 ml Laboratory Tests 01/14/17 11:15: Prothrombin Time 10.7, Prothromb Time International Ratio 1.1, Sodium Level 151H , Potassium Level 4.2, Chloride Level 113H, Carbon Dioxide Level 26, Anion Gap 12, Blood Urea Nitrogen 52H, Creatinine 1.3H, Estimat Glomerular Filtration Rate 55.1, Glucose Level 94, Calcium Level 8.8, Total Bilirubin 0.3, Aspartate Amino Transf (AST/SGOT) 227H, Alanine Aminotransferase (ALT/SGPT) 110H, Alkaline Phosphatase 41, Lactate Dehydrogenase 275H, Total Protein 6.1L, Albumin 2.5L, Globulin 3.6, Albumin/Globulin Ratio 0.6L, Carcinoembryonic Antigen 2.9, Prostate Specific Antigen 0.6, Vitamin B12 Level 1243H 01/15/17 04:40: Sodium Level 152H, Potassium Level 4.4, Chloride Level 114H, Carbon Dioxide Level 24, Anion Gap 14, Blood Urea Nitrogen 45H, Creatinine 1.2, Estimat Glomerular Filtration Rate > 60, Glucose Level 79, Calcium Level 8.9, Total Bilirubin 0.4, Aspartate Amino Transf (AST/SGOT) 286H, Alanine Aminotransferase (ALT/SGPT) 155H, Alkaline Phosphatase 57, Total Protein 6.4L, Albumin 2.5L, Globulin 3.9, Albumin/Globulin Ratio 0.6L, White Blood Count 4.3#L, Red Blood Count 4.23L, Hemoglobin 9.7L, Hematocrit 33.0L, Mean Corpuscular Volume 78L, Mean Corpuscular Hemoglobin 22.8L, Mean Corpuscular Hemoglobin Concent 29.3L, Red Cell Distribution Width 23.7H, Platelet Count 153, Mean Platelet Volume 14.1H, Neutrophils (%) (Auto) 61.0, Lymphocytes (%) (Auto) 15.7L, Monocytes (%) (Auto) 14.5H, Eosinophils (%) (Auto) 6.2H, Basophils (%) (Auto) 2.5H, Phosphorus Level 3.5, Magnesium Level 2.1 Height (Feet): 6 Height (Inches): 0.00 Weight (Pounds): 150 General Appearance: lethargic, confused EENT: normal ENT inspection Neck: normal alignment Cardiovascular: normal peripheral pulses, normal rate, regular rhythm Respiratory/Chest: chest wall non-tender, lungs clear, decreased breath sounds Abdomen: normal bowel sounds, non tender, soft Extremities: normal inspection Edema: no edema noted Arm (L), no edema noted Arm (R), no edema noted Leg (L), no edema noted Leg (R), no edema noted Pedal (L), no edema noted Pedal (R), no edema noted Generalized Neurologic: motor weakness Skin: normal pigmentation, warm/dry ALONDRA SINGH January 15, 2017 08:32
[2017-01-15] MEDS ORDERED: NS 275ml ONE (10:13)
[2017-01-15 11:00] LABS: ABG ALLEN TEST POSITIVE; ABG BASE EXCESS 0.1; ABG PCO2 35.7 mmHg (35.0-45.0)
[2017-01-15] MEDS: Enoxaparin Sodium 300mg/3ml vial SUBQ SCH ×2 (11:01→21:39)
[2017-01-15 12:00] VITALS: BP 118/82
--- NOTE | 2017-01-15 15:36 | Nephrology Progress Note ---
Assessment/Plan Assessment 1.ARF 2.ckd 3.Malnutrition 4.Hypernatremia 5.respiratory failure Plan plan to continue free water monitoring electrolyte replace electrolyte nutritional support Subjective Subjective NAD Objective Objective Last 24 Hour Vital Signs Date Time Temp Pulse Resp B/P Pulse Ox O2 Delivery O2 Flow Rate FiO2 01/15/17 15:20 65 19 99 Facial 30 01/15/17 13:29 70 20 98 Facial 30 01/15/17 12:14 30 01/15/17 12:00 98.1 85 19 118/82 100 Bi-pap 30 01/15/17 11:00 74 18 98 Facial 30 01/15/17 09:00 70 18 98 Facial 30 01/15/17 08:10 71 01/15/17 08:10 30 01/15/17 08:00 98.3 75 29 106/71 100 Bi-pap 30 01/15/17 07:10 70 32 97 Facial 30 01/15/17 04:00 30 01/15/17 04:00 98.4 65 18 114/67 99 Mechanical Ventilator 30 01/15/17 04:00 72 01/15/17 03:25 88 20 99 Facial 30 01/15/17 01:20 90 30 98 Facial 30 01/15/17 00:59 97.9 70 28 116/55 97 Bi-pap 30 01/15/17 00:00 30 01/15/17 00:00 64 01/14/17 22:58 94 30 95 Facial 30 01/14/17 20:45 89 26 97 Facial 30 01/14/17 20:00 30 01/14/17 20:00 67 01/14/17 20:00 98.2 60 28 109/61 99 Bi-pap 30 01/14/17 18:50 90 26 98 Facial 30 01/14/17 16:40 88 24 97 Facial 30 01/14/17 16:16 97.9 69 19 92/51 97 30 01/14/17 16:00 30 Intake and Output 01/14/17 01/15/17 19:00 07:00 Intake Total 737.5 ml 1067.5 ml Output Total 950 ml 500 ml Balance -212.5 ml 567.5 ml Intake Free Water 600 ml 600 ml IV Total 137.5 ml 467.5 ml Output Urine Total 950 ml 500 ml Laboratory Tests 01/15/17 04:40: White Blood Count 4.3#L, Red Blood Count 4.23L, Hemoglobin 9.7L, Hematocrit 33.0L, Mean Corpuscular Volume 78L, Mean Corpuscular Hemoglobin 22.8L, Mean Corpuscular Hemoglobin Concent 29.3L, Red Cell Distribution Width 23.7H, Platelet Count 153, Mean Platelet Volume 14.1H, Neutrophils (%) (Auto) 61.0, Lymphocytes (%) (Auto) 15.7L, Monocytes (%) (Auto) 14.5H, Eosinophils (%) (Auto ) 6.2H, Basophils (%) (Auto) 2.5H, Sodium Level 152H, Potassium Level 4.4, Chloride Level 114H, Carbon Dioxide Level 24, Anion Gap 14, Blood Urea Nitrogen 45H, Creatinine 1.2, Estimat Glomerular Filtration Rate > 60, Glucose Level 79, Calcium Level 8.9, Phosphorus Level 3.5, Magnesium Level 2.1, Total Bilirubin 0.4, Aspartate Amino Transf (AST/SGOT) 286H, Alanine Aminotransferase (ALT/SGPT ) 155H, Alkaline Phosphatase 57, Total Protein 6.4L, Albumin 2.5L, Globulin 3.9 , Albumin/Globulin Ratio 0.6L 01/15/17 10:55: Arterial Blood pH 7.444, Arterial Blood Partial Pressure CO2 35.7, Arterial Blood Partial Pressure O2 106.5H, Arterial Blood HCO3 23.9, Arterial Blood Oxygen Saturation 97.5, Arterial Blood Base Excess 0.1, Foreign Test Positive Height (Feet): 6 Height (Inches): 0.00 Weight (Pounds): 150 Objective HEAD AND NECK: extraocular movement intact. Pupils reactive to light and accommodation. Dry mucous membranes. LUNGS: Decreased breath sounds on both sides. CARDIAC: Regular rate and rhythm. S1 and S2. No murmur. No rub. ABDOMEN: Soft and nontender. EXTREMITIES: No edema. No clubbing. No cyanosis. contracture on both sides. BARTOLOME OVALLES January 15, 2017 15:36
[2017-01-15 16:00] VITALS: BP 101/58
[2017-01-15] MEDS ORDERED: Warfarin Sodium 5mg ORAL ONE (17:00)
[2017-01-15] MEDS: Piperacillin/Tazobactam 3.375 GM in NS 110 ML IVPB SCH (17:59)
[2017-01-15 20:00] VITALS: BP 117/73
[2017-01-15] MEDS: Vancomycin 1250mg/D5W 275ml IVPB SCH ×2 (21:11)
--- NOTE | 2017-01-15 22:39 | Pulmonology Progress Note ---
Assessment/Plan Problems: (1) Severe sepsis with septic shock (2) Acute respiratory failure (3) COPD (chronic obstructive pulmonary disease) (4) Alzheimer's dementia (5) Cachexia (6) Feeding by G-tube Assessment/Plan titrate fo2 bun/creatine improving f/u pulse oximeter continue antibiotics check cultures dvt prophylaxis tolerating diet Subjective Interval Events: off bipap Allergies: Coded Allergies: No Known Allergies (Unverified , 12/05/15) Objective Last 24 Hour Vital Signs Date Time Temp Pulse Resp B/P Pulse Ox O2 Delivery O2 Flow Rate FiO2 01/15/17 21:17 61 18 100 01/15/17 20:00 62 01/15/17 20:00 98.2 55 20 117/73 100 Venturi Mask 2.0 01/15/17 19:30 99 Venturi Mask 8.0 40 01/15/17 19:30 58 18 99 01/15/17 16:00 68 01/15/17 16:00 98.3 69 23 101/58 100 Venturi Mask 40 01/15/17 15:20 65 19 99 Facial 30 01/15/17 13:29 70 20 98 Facial 30 01/15/17 12:14 30 01/15/17 12:00 98.1 85 19 118/82 100 Bi-pap 30 01/15/17 12:00 65 01/15/17 11:00 74 18 98 Facial 30 01/15/17 09:00 70 18 98 Facial 30 01/15/17 08:10 71 01/15/17 08:10 30 01/15/17 08:00 98.3 75 29 106/71 100 Bi-pap 30 01/15/17 07:10 70 32 97 Facial 30 01/15/17 04:00 30 01/15/17 04:00 98.4 65 18 114/67 99 Mechanical Ventilator 30 01/15/17 04:00 72 01/15/17 03:25 88 20 99 Facial 30 01/15/17 01:20 90 30 98 Facial 30 01/15/17 00:59 97.9 70 28 116/55 97 Bi-pap 30 01/15/17 00:00 30 01/15/17 00:00 64 01/14/17 22:58 94 30 95 Facial 30 Intake and Output 01/14/17 01/15/17 19:00 07:00 Intake Total 737.5 ml 1067.5 ml Output Total 950 ml 500 ml Balance -212.5 ml 567.5 ml Intake Free Water 600 ml 600 ml IV Total 137.5 ml 467.5 ml Output Urine Total 950 ml 500 ml General Appearance: cachetic HEENT: normocephalic, atraumatic Respiratory/Chest: chest wall non-tender, lungs clear Cardiovascular: normal peripheral pulses, normal rate Abdomen: normal bowel sounds, soft, non tender Genitourinary: normal external genitalia Extremities: no clubbing Skin: no rash Neurologic/Psychiatric: green plumber II-XII grossly normal, no motor/sensory deficits Microbiology Date/Time Source Procedure Growth Status 01/14/17 15:30 Sputum Gram Stain - Final Complete 01/14/17 15:30 Sputum Sputum Culture - Final CULTURE NOT PERFORMED ... Complete Laboratory Tests 01/15/17 04:40: White Blood Count 4.3#L, Red Blood Count 4.23L, Hemoglobin 9.7L, Hematocrit 33.0L, Mean Corpuscular Volume 78L, Mean Corpuscular Hemoglobin 22.8L, Mean Corpuscular Hemoglobin Concent 29.3L, Red Cell Distribution Width 23.7H, Platelet Count 153, Mean Platelet Volume 14.1H, Neutrophils (%) (Auto) 61.0, Lymphocytes (%) (Auto) 15.7L, Monocytes (%) (Auto) 14.5H, Eosinophils (%) (Auto ) 6.2H, Basophils (%) (Auto) 2.5H, Sodium Level 152H, Potassium Level 4.4, Chloride Level 114H, Carbon Dioxide Level 24, Anion Gap 14, Blood Urea Nitrogen 45H, Creatinine 1.2, Estimat Glomerular Filtration Rate > 60, Glucose Level 79, Calcium Level 8.9, Phosphorus Level 3.5, Magnesium Level 2.1, Total Bilirubin 0.4, Aspartate Amino Transf (AST/SGOT) 286H, Alanine Aminotransferase (ALT/SGPT ) 155H, Alkaline Phosphatase 57, Total Protein 6.4L, Albumin 2.5L, Globulin 3.9 , Albumin/Globulin Ratio 0.6L 01/15/17 10:55: Arterial Blood pH 7.444, Arterial Blood Partial Pressure CO2 35.7, Arterial Blood Partial Pressure O2 106.5H, Arterial Blood HCO3 23.9, Arterial Blood Oxygen Saturation 97.5, Arterial Blood Base Excess 0.1, Foreign Test Positive Current Medications Medications (Trade) Dose Ordered Sig/Gloria Route PRN Reason Start Time Stop Time Status Last Admin Dose Admin Acetaminophen (Tylenol) 650 mg Q4H PRN ORAL fever 01/12/17 22:00 02/11/17 21:59 Al Hydroxide/Mg Hydroxide (Mylanta II) 30 ml Q6H PRN GT dyspepsia 01/14/17 04:00 02/13/17 03:59 Albuterol/ Ipratropium (DuoNeb 0.5-3(2.5)mg/3ml) 3 ml Q4H PRN HHN Shortness of Breath 01/12/17 22:00 01/17/17 21:59 Enoxaparin Sodium 70 mg 70 mg EVERY 12 HOURS SUBQ 01/14/17 11:00 02/13/17 10:59 01/15/17 21:39 Midodrine (Pro-Amatine) 5 mg THREE TIMES A DAY GT 01/14/17 09:00 02/13/17 08:59 01/15/17 17:59 Nitroglycerin (Ntg) 0.4 mg Q5MIN X 3 DOSES PRN SL Prn Chest Pain 01/12/17 22:00 02/11/17 21:59 Ondansetron HCl (Zofran) 4 mg Q6H PRN IVP Nausea & Vomiting 01/12/17 22:00 02/11/17 21:59 Piperacillin Sod/ Tazobactam Sod/ Sodium Chloride (Zosyn/Sodium Chloride) 110 ml @ 27.5 mls/hr Q8H IVPB 01/15/17 18:00 01/22/17 17:59 01/15/17 17:59 Polyethylene Glycol (Miralax) 17 gm DAILYPRN PRN GT Constipation 01/14/17 01:30 02/13/17 01:29 Promethazine HCl/ Codeine (Phenergan with Codeine) 5 ml Q4H PRN GT For Cough 01/14/17 02:00 02/13/17 01:59 Temazepam (Restoril) 15 mg HSPRN PRN GT Insomnia 01/14/17 01:30 01/21/17 01:29 Vancomycin HCl (Vanco rx to dose) 1 ea DAILY PRN MISC Per rx protocol 01/12/17 22:00 02/11/17 21:59 Vancomycin HCl/ Dextrose (Vancomycin/D5W) 275 ml @ 183.333 mls/hr Q24H IVPB 01/14/17 21:00 01/19/17 20:59 01/15/17 21:11 Warfarin Sodium 1 ea 1 ea DAILY PRN MISC Per rx protocol 01/14/17 17:15 02/13/17 17:14 ALMA LINDO January 15, 2017 22:39
--- NOTE | 2017-01-15 23:55 | General Progress Note ---
Assessment/Plan Assessment/Plan IMPRESSION: 1. Leukocytosis with a left shift. 2. Anemia of chronic disease. 3. Anemia of iron deficiency. 4. Decreased hemoglobin and hematocrit, rule out gastrointestinal bleed. 5. Anemia of kidney disease. 6. Acute kidney injury. 7. Thrombocytopenia, multifactorial. 8. Acute respiratory failure. 9. Pneumonia. 10. Chronic obstructive pulmonary disease. 11. History of recent percutaneous endoscopic gastrostomy tube placement. 12. Dysphagia. 13. Acute renal failure. 14. Malnutrition. 15. Dehydration. 16. Coronary artery disease. 17. Hypertension. 18. Congestive heart failure. 19. History of deep venous thrombosis of the right lower extremity. 20. Anticoagulation with Lovenox. 21. Encephalopathy. 22. Failure to thrive. 23. Gastroesophageal reflux disease. 24. Sepsis. 25. Septic shock. 26. Alzheimer's. 27. Cachexia. RECOMMENDATIONS: 1. Watch count. 2. Watch coagulopathy. 3. PRBC transfusion on a p.r.n. basis. 4. Venous Doppler of the bilateral lower extremity to rule out DVT. 5. Lovenox subcutaneous. 6. Skin care. 7. Nutrition. 8. Respiratory treatment. 9. Close followup. Gilbert Freedman MD Subjective Constitutional: Reports: no symptoms HEENT: Reports: no symptoms Cardiovascular: Reports: no symptoms Respiratory: Reports: no symptoms Gastrointestinal/Abdominal: Reports: no symptoms Genitourinary: Reports: no symptoms Neurologic/Psychiatric: Reports: no symptoms Endocrine: Reports: no symptoms Hematologic/Lymphatic: Reports: no symptoms Allergies: Coded Allergies: No Known Allergies (Unverified , 12/05/15) Objective Last 24 Hour Vital Signs Date Time Temp Pulse Resp B/P Pulse Ox O2 Delivery O2 Flow Rate FiO2 01/15/17 23:20 66 18 100 01/15/17 21:17 61 18 100 01/15/17 20:00 62 01/15/17 20:00 98.2 55 20 117/73 100 Venturi Mask 2.0 01/15/17 19:30 99 Venturi Mask 8.0 40 01/15/17 19:30 58 18 99 01/15/17 16:00 68 01/15/17 16:00 98.3 69 23 101/58 100 Venturi Mask 40 01/15/17 15:20 65 19 99 Facial 30 01/15/17 13:29 70 20 98 Facial 30 01/15/17 12:14 30 01/15/17 12:00 98.1 85 19 118/82 100 Bi-pap 30 01/15/17 12:00 65 01/15/17 11:00 74 18 98 Facial 30 01/15/17 09:00 70 18 98 Facial 30 01/15/17 08:10 71 01/15/17 08:10 30 01/15/17 08:00 98.3 75 29 106/71 100 Bi-pap 30 01/15/17 07:10 70 32 97 Facial 30 01/15/17 04:00 30 01/15/17 04:00 98.4 65 18 114/67 99 Mechanical Ventilator 30 01/15/17 04:00 72 01/15/17 03:25 88 20 99 Facial 30 01/15/17 01:20 90 30 98 Facial 30 01/15/17 00:59 97.9 70 28 116/55 97 Bi-pap 30 01/15/17 00:00 30 01/15/17 00:00 64 Intake and Output 01/14/17 01/15/17 19:00 07:00 Intake Total 737.5 ml 1067.5 ml Output Total 950 ml 500 ml Balance -212.5 ml 567.5 ml Intake Free Water 600 ml 600 ml IV Total 137.5 ml 467.5 ml Output Urine Total 950 ml 500 ml Laboratory Tests 01/15/17 04:40: White Blood Count 4.3#L, Red Blood Count 4.23L, Hemoglobin 9.7L, Hematocrit 33.0L, Mean Corpuscular Volume 78L, Mean Corpuscular Hemoglobin 22.8L, Mean Corpuscular Hemoglobin Concent 29.3L, Red Cell Distribution Width 23.7H, Platelet Count 153, Mean Platelet Volume 14.1H, Neutrophils (%) (Auto) 61.0, Lymphocytes (%) (Auto) 15.7L, Monocytes (%) (Auto) 14.5H, Eosinophils (%) (Auto ) 6.2H, Basophils (%) (Auto) 2.5H, Sodium Level 152H, Potassium Level 4.4, Chloride Level 114H, Carbon Dioxide Level 24, Anion Gap 14, Blood Urea Nitrogen 45H, Creatinine 1.2, Estimat Glomerular Filtration Rate > 60, Glucose Level 79, Calcium Level 8.9, Phosphorus Level 3.5, Magnesium Level 2.1, Total Bilirubin 0.4, Aspartate Amino Transf (AST/SGOT) 286H, Alanine Aminotransferase (ALT/SGPT ) 155H, Alkaline Phosphatase 57, Total Protein 6.4L, Albumin 2.5L, Globulin 3.9 , Albumin/Globulin Ratio 0.6L 01/15/17 10:55: Arterial Blood pH 7.444, Arterial Blood Partial Pressure CO2 35.7, Arterial Blood Partial Pressure O2 106.5H, Arterial Blood HCO3 23.9, Arterial Blood Oxygen Saturation 97.5, Arterial Blood Base Excess 0.1, Foreign Test Positive Height (Feet): 6 Height (Inches): 0.00 Weight (Pounds): 150 General Appearance: no apparent distress EENT: normal ENT inspection Neck: supple Cardiovascular: normal rate Respiratory/Chest: lungs clear Abdomen: no organomegaly Pelvis: no masses Extremities: non-tender Edema: no edema noted Arm (L), no edema noted Arm (R), no edema noted Leg (L), no edema noted Leg (R), no edema noted Pedal (L), no edema noted Pedal (R), no edema noted Generalized Neurologic: oriented x 3 Skin: warm/dry Lymphatic: normal anterior cervical (L), normal anterior cervical (R), normal axillary (L), normal axillary (R), normal inguinal (L), normal inguinal (R), normal other, normal posterior cervical (L), normal posterior cervical (R), normal submandibular (L), normal submandibular (R), normal supraclavicular (L), normal supraclavicular (R) GILBERT FREEDMAN January 15, 2017 23:55
--- NOTE | 2017-01-15 23:55 | Cardiology Progress Note ---
Assessment/Plan Assessment/Plan 1. Sinus tachycardia, likely due to sepsis/PNA given bandemia and abnormal CXR. Treat the underlying cause. 2. Dyspnea, hypoxic respiratory failure, possibly aspiration. 3. Normal LV systolic function 4. Hx of HTN Subjective Subjective Sinus rhythm at 67. Objective Last 24 Hour Vital Signs Date Time Temp Pulse Resp B/P Pulse Ox O2 Delivery O2 Flow Rate FiO2 01/15/17 23:20 66 18 100 01/15/17 21:17 61 18 100 01/15/17 20:00 62 01/15/17 20:00 98.2 55 20 117/73 100 Venturi Mask 2.0 01/15/17 19:30 99 Venturi Mask 8.0 40 01/15/17 19:30 58 18 99 01/15/17 16:00 68 01/15/17 16:00 98.3 69 23 101/58 100 Venturi Mask 40 01/15/17 15:20 65 19 99 Facial 30 01/15/17 13:29 70 20 98 Facial 30 01/15/17 12:14 30 01/15/17 12:00 98.1 85 19 118/82 100 Bi-pap 30 01/15/17 12:00 65 01/15/17 11:00 74 18 98 Facial 30 01/15/17 09:00 70 18 98 Facial 30 01/15/17 08:10 71 01/15/17 08:10 30 01/15/17 08:00 98.3 75 29 106/71 100 Bi-pap 30 01/15/17 07:10 70 32 97 Facial 30 01/15/17 04:00 30 01/15/17 04:00 98.4 65 18 114/67 99 Mechanical Ventilator 30 01/15/17 04:00 72 01/15/17 03:25 88 20 99 Facial 30 01/15/17 01:20 90 30 98 Facial 30 01/15/17 00:59 97.9 70 28 116/55 97 Bi-pap 30 01/15/17 00:00 30 01/15/17 00:00 64 Intake and Output 01/14/17 01/15/17 19:00 07:00 Intake Total 737.5 ml 1067.5 ml Output Total 950 ml 500 ml Balance -212.5 ml 567.5 ml Intake Free Water 600 ml 600 ml IV Total 137.5 ml 467.5 ml Output Urine Total 950 ml 500 ml 2D Echo: Echo form 12/21: Normal LV systolic function with LVEF at 60-65% Laboratory Tests Test 01/15/17 04:40 01/15/17 10:55 White Blood Count 4.3 K/UL (4.8-10.8) #L Red Blood Count 4.23 M/UL (4.70-6.10) L Hemoglobin 9.7 G/DL (14.2-18.0) L Hematocrit 33.0 % (42.0-52.0) L Mean Corpuscular Volume 78 FL (80-99) L Mean Corpuscular Hemoglobin 22.8 PG (27.0-31.0) L Mean Corpuscular Hemoglobin Concent 29.3 G/DL (32.0-36.0) L Red Cell Distribution Width 23.7 % (11.6-14.8) H Platelet Count 153 K/UL (150-450) Mean Platelet Volume 14.1 FL (6.5-10.1) H Neutrophils (%) (Auto) 61.0 % (45.0-75.0) Lymphocytes (%) (Auto) 15.7 % (20.0-45.0) L Monocytes (%) (Auto) 14.5 % (1.0-10.0) H Eosinophils (%) (Auto) 6.2 % (0.0-3.0) H Basophils (%) (Auto) 2.5 % (0.0-2.0) H Sodium Level 152 mEQ/L (135-145) H Potassium Level 4.4 mEQ/L (3.4-4.9) Chloride Level 114 mEQ/L (98-107) H Carbon Dioxide Level 24 mEQ/L (20-30) Anion Gap 14 (5-15) Blood Urea Nitrogen 45 mg/dL (7-23) H Creatinine 1.2 mg/dL (0.7-1.2) Estimat Glomerular Filtration Rate > 60 mL/min (>60) Glucose Level 79 mg/dL (74-106) Calcium Level 8.9 mg/dL (8.6-10.2) Phosphorus Level 3.5 mg/dL (2.5-4.8) Magnesium Level 2.1 mg/dL (1.7-2.5) Total Bilirubin 0.4 mg/dL (0.0-1.2) Aspartate Amino Transf (AST/SGOT) 286 U/L (5-40) H Alanine Aminotransferase (ALT/SGPT) 155 U/L (3-41) H Alkaline Phosphatase 57 U/L (40-129) Total Protein 6.4 g/dL (6.6-8.7) L Albumin 2.5 g/dL (3.5-5.2) L Globulin 3.9 g/dL Albumin/Globulin Ratio 0.6 (1.0-2.7) L Arterial Blood pH 7.444 (7.350-7.450) Arterial Blood Partial Pressure CO2 35.7 mmHg (35.0-45.0) Arterial Blood Partial Pressure O2 106.5 mmHg (75.0-100.0) H Arterial Blood HCO3 23.9 mmol/L (22.0-26.0) Arterial Blood Oxygen Saturation 97.5 % (92.0-98.0) Arterial Blood Base Excess 0.1 Foreign Test Positive Microbiology Date/Time Source Procedure Growth Status 01/14/17 15:30 Sputum Gram Stain - Final Complete 01/14/17 15:30 Sputum Sputum Culture - Final CULTURE NOT PERFORMED ... Complete Objective GENERAL: Middle-aged male, lying in bed, on oxygen via mask, comfortable, not in distress. HEENT: Normocephalic and atraumatic. PERRLA, EOMI NECK: No JVD, no carotid bruit with 2+ upstroke B/L CARDIOVASCULAR: Regular rate and rhythm. No murmurs, gallops or rubs. LUNGS: Crackles with diminished breathing sound on the right lower lobe. ABDOMEN: Soft, nontender, and nondistended. Positive bowel sounds. No hepatosplenomegaly. EXTREMITIES: No edema, clubbing or cyanosis. . VOLODYMYR BLANCHARD January 15, 2017 23:55
[2017-01-16] VITALS: BP 113/74
[2017-01-16] MEDS: Piperacillin/Tazobactam 3.375 GM in NS 110 ML IVPB SCH ×3 (01:39→17:15)
[2017-01-16 04:00] VITALS: BP 114/80
[2017-01-16 05:59] LABS: BASOPHILS % (AUTO) 0.6 % (0.0-2.0); EOSINOPHILS % (AUTO) 7.8 % (0.0-3.0); LYMPHOCYTES % (AUTO) 19.9 % (20.0-45.0); MEAN CORPUSCULAR HEMOGLOBIN 23.4 PG (27.0-31.0); MEAN CORPUSCULAR HGB CONC 30.1 G/DL (32.0-36.0); MEAN CORPUSCULAR VOLUME 78 FL (80-99); MEAN PLATELET VOLUME 12.4 FL (6.5-10.1); MONOCYTES % (AUTO) 9.4 % (1.0-10.0); NEUTROPHILS % (AUTO) 62.2 % (45.0-75.0); PLATELET COUNT 173 K/UL (150-450); RED BLOOD COUNT 4.31 M/UL (4.70-6.10); RED CELL DISTRIBUTION WIDTH 23.2 % (11.6-14.8); WHITE BLOOD COUNT 5.3 K/UL (4.8-10.8)
[2017-01-16 06:10] LABS: INR 1.4 (0.9-1.1); PROTHROMBIN TIME 14.4 SEC (9.30-11.50)
[2017-01-16 06:30] LABS: ANION GAP 17 (5-15); CALCIUM 8.6 mg/dL (8.6-10.2); CARBON DIOXIDE 21 mEQ/L (20-30); CHLORIDE 111 mEQ/L (98-107); GLOMERULAR FILTRATION RATE > 60 mL/min (>60); HEMOLYSIS 4; POTASSIUM 3.9 mEQ/L (3.4-4.9); SODIUM 149 mEQ/L (135-145)
[2017-01-16 08:00] VITALS: BP 108/68
--- NOTE | 2017-01-16 08:08 | Diagnostic Imaging Report ---
Indication: Dyspnea Comparison: 01/12/17 A single view chest radiograph was obtained. Findings: Left upper chest is obscured from visualization. Also the left lung base is obscured. There is atelectasis present at the left lung base once again suspected. The right lung appears clear. Heart size is probably stable. Impression: Very limited study as discussed above. Suggest repeat
--- NOTE | 2017-01-16 08:49 | Nephrology Progress Note ---
Assessment/Plan Assessment 1.ARF 2.ckd 3.Malnutrition 4.Hypernatremia 5.respiratory failure Plan plan to continue free water monitoring electrolyte replace electrolyte nutritional support Subjective ROS Limited/Unobtainable: Yes Constitutional: Reports: no symptoms HEENT: Reports: no symptoms Genitourinary: Reports: no symptoms Neurologic/Psychiatric: Reports: no symptoms Subjective NAD Objective Objective Last 24 Hour Vital Signs Date Time Temp Pulse Resp B/P Pulse Ox O2 Delivery O2 Flow Rate FiO2 01/16/17 08:48 70 16 99 Facial 30 01/16/17 08:02 30 01/16/17 08:00 97.9 70 17 108/68 99 Bi-pap 30 01/16/17 07:31 99 Bi-pap 30 01/16/17 07:29 74 20 99 Facial 30 01/16/17 05:10 70 22 99 Facial 30 01/16/17 04:00 98.2 74 20 114/80 100 Bi-pap 2.0 01/16/17 04:00 71 01/16/17 04:00 30 01/16/17 03:16 76 19 98 Facial 30 01/16/17 01:30 30 01/16/17 01:20 73 19 99 Facial 30 01/16/17 00:00 97.7 68 20 113/74 100 Nasal Cannula 2.0 01/16/17 00:00 67 01/15/17 23:20 66 18 100 01/15/17 21:17 61 18 100 01/15/17 20:00 62 01/15/17 20:00 98.2 55 20 117/73 100 Venturi Mask 2.0 01/15/17 19:30 99 Venturi Mask 8.0 40 01/15/17 19:30 58 18 99 01/15/17 16:00 68 01/15/17 16:00 98.3 69 23 101/58 100 Venturi Mask 40 01/15/17 15:20 65 19 99 Facial 30 01/15/17 13:29 70 20 98 Facial 30 01/15/17 12:14 30 01/15/17 12:00 98.1 85 19 118/82 100 Bi-pap 30 01/15/17 12:00 65 01/15/17 11:00 74 18 98 Facial 30 01/15/17 09:00 70 18 98 Facial 30 Intake and Output 01/15/17 01/16/17 19:00 07:00 Intake Total 702.5 ml 1067.500 ml Output Total 750 ml 600 ml Balance -47.5 ml 467.500 ml Intake Free Water 675 ml 600 ml IV Total 27.5 ml 467.500 ml Output Urine Total 750 ml 600 ml # Bowel Movements 2 Laboratory Tests 01/15/17 10:55: Arterial Blood pH 7.444, Arterial Blood Partial Pressure CO2 35.7, Arterial Blood Partial Pressure O2 106.5H, Arterial Blood HCO3 23.9, Arterial Blood Oxygen Saturation 97.5, Arterial Blood Base Excess 0.1, Foreign Test Positive 01/16/17 04:55: White Blood Count 5.3, Red Blood Count 4.31L, Hemoglobin 10.1L, Hematocrit 33.5L , Mean Corpuscular Volume 78L, Mean Corpuscular Hemoglobin 23.4L, Mean Corpuscular Hemoglobin Concent 30.1L, Red Cell Distribution Width 23.2H, Platelet Count 173, Mean Platelet Volume 12.4H, Neutrophils (%) (Auto) 62.2, Lymphocytes (%) (Auto) 19.9L, Monocytes (%) (Auto) 9.4, Eosinophils (%) (Auto) 7.8H, Basophils (%) (Auto) 0.6, Prothrombin Time 14.4H, Prothromb Time International Ratio 1.4H, Sodium Level 149H, Potassium Level 3.9, Chloride Level 111H, Carbon Dioxide Level 21, Anion Gap 17H, Blood Urea Nitrogen 31H, Creatinine 1.0, Estimat Glomerular Filtration Rate > 60, Glucose Level 87, Calcium Level 8.6 01/16/17 05:00: Stool Occult Blood [Pending] Height (Feet): 6 Height (Inches): 0.00 Weight (Pounds): 150 Objective HEAD AND NECK: extraocular movement intact. Pupils reactive to light and accommodation. Dry mucous membranes. LUNGS: Decreased breath sounds on both sides. CARDIAC: Regular rate and rhythm. S1 and S2. No murmur. No rub. ABDOMEN: Soft and nontender. EXTREMITIES: No edema. No clubbing. No cyanosis. contracture on both sides. BARTOLOME OVALLES January 16, 2017 08:49
[2017-01-16] MEDS: Enoxaparin Sodium 300mg/3ml vial SUBQ SCH ×2 (09:44→21:59)
--- NOTE | 2017-01-16 11:36 | Diagnostic Imaging Report ---
APPROVED REPORT CPT Code: 83342 Present Symptoms Lower Extremity Pain: Bilateral Comments: Difficult study due to patient being contracted. BILATERAL: Imaging reveals a patent deep venous system bilaterally. There is no evidence of thrombus within the femoral, popliteal or tibial segments. The greater saphenous veins are also within normal limits. Doppler indicates normal spontaneous flow within these segments.
[2017-01-16 12:00] VITALS: BP 108/57
--- NOTE | 2017-01-16 12:52 | Pulmonology Progress Note ---
Assessment/Plan Problems: (1) Severe sepsis with septic shock (2) Acute respiratory failure (3) COPD (chronic obstructive pulmonary disease) (4) Alzheimer's dementia (5) Cachexia (6) Feeding by G-tube Assessment/Plan titrate fo2 bun/creatine improving f/u pulse oximeter continue antibiotics check cultures dvt prophylaxis tolerating [facility] Subjective ROS Limited/Unobtainable: Yes Constitutional: Reports: no symptoms HEENT: Repors: no symptoms Allergies: Coded Allergies: No Known Allergies (Unverified , 12/05/15) Objective Last 24 Hour Vital Signs Date Time Temp Pulse Resp B/P Pulse Ox O2 Delivery O2 Flow Rate FiO2 01/16/17 12:29 40 01/16/17 11:20 72 19 98 01/16/17 08:48 70 16 99 Facial 30 01/16/17 08:02 30 01/16/17 08:00 64 01/16/17 08:00 97.9 70 17 108/68 99 Bi-pap 30 01/16/17 07:31 99 Bi-pap 30 01/16/17 07:29 74 20 99 Facial 30 01/16/17 05:10 70 22 99 Facial 30 01/16/17 04:00 98.2 74 20 114/80 100 Bi-pap 2.0 01/16/17 04:00 71 01/16/17 04:00 30 01/16/17 03:16 76 19 98 Facial 30 01/16/17 01:30 30 01/16/17 01:20 73 19 99 Facial 30 01/16/17 00:00 97.7 68 20 113/74 100 Nasal Cannula 2.0 01/16/17 00:00 67 01/15/17 23:20 66 18 100 01/15/17 21:17 61 18 100 01/15/17 20:00 62 01/15/17 20:00 98.2 55 20 117/73 100 Venturi Mask 2.0 01/15/17 19:30 99 Venturi Mask 8.0 40 01/15/17 19:30 58 18 99 01/15/17 16:00 68 01/15/17 16:00 98.3 69 23 101/58 100 Venturi Mask 40 01/15/17 15:20 65 19 99 Facial 30 01/15/17 13:29 70 20 98 Facial 30 Intake and Output 01/15/17 01/16/17 19:00 07:00 Intake Total 702.5 ml 1067.500 ml Output Total 750 ml 600 ml Balance -47.5 ml 467.500 ml Intake Free Water 675 ml 600 ml IV Total 27.5 ml 467.500 ml Output Urine Total 750 ml 600 ml # Bowel Movements 2 General Appearance: cachetic HEENT: normocephalic, atraumatic Respiratory/Chest: accessory muscle use, crackles/rales Cardiovascular: normal peripheral pulses, normal rate, regular rhythm Abdomen: normal bowel sounds, soft, non tender Genitourinary: normal external genitalia Extremities: no cyanosis, no clubbing Skin: no lesions Neurologic/Psychiatric: cook fruit II-XII grossly normal, abnormal gait Lymphatic: no neck adenopathy, no groin adenopathy Musculoskeletal: no effusion Microbiology Date/Time Source Procedure Growth Status 01/14/17 15:30 Sputum Gram Stain - Final Complete 01/14/17 15:30 Sputum Sputum Culture - Final CULTURE NOT PERFORMED ... Complete Laboratory Tests 01/16/17 04:55: White Blood Count 5.3, Red Blood Count 4.31L, Hemoglobin 10.1L, Hematocrit 33.5L , Mean Corpuscular Volume 78L, Mean Corpuscular Hemoglobin 23.4L, Mean Corpuscular Hemoglobin Concent 30.1L, Red Cell Distribution Width 23.2H, Platelet Count 173, Mean Platelet Volume 12.4H, Neutrophils (%) (Auto) 62.2, Lymphocytes (%) (Auto) 19.9L, Monocytes (%) (Auto) 9.4, Eosinophils (%) (Auto) 7.8H, Basophils (%) (Auto) 0.6, Prothrombin Time 14.4H, Prothromb Time International Ratio 1.4H, Sodium Level 149H, Potassium Level 3.9, Chloride Level 111H, Carbon Dioxide Level 21, Anion Gap 17H, Blood Urea Nitrogen 31H, Creatinine 1.0, Estimat Glomerular Filtration Rate > 60, Glucose Level 87, Calcium Level 8.6 01/16/17 05:00: Stool Occult Blood [Pending] Current Medications Medications (Trade) Dose Ordered Sig/Gloria Route PRN Reason Start Time Stop Time Status Last Admin Dose Admin Acetaminophen (Tylenol) 650 mg Q4H PRN ORAL fever 01/12/17 22:00 02/11/17 21:59 Al Hydroxide/Mg Hydroxide (Mylanta II) 30 ml Q6H PRN GT dyspepsia 01/14/17 04:00 02/13/17 03:59 Albuterol/ Ipratropium (DuoNeb 0.5-3(2.5)mg/3ml) 3 ml Q4H PRN HHN Shortness of Breath 01/12/17 22:00 01/17/17 21:59 Enoxaparin Sodium 70 mg 70 mg EVERY 12 HOURS SUBQ 01/14/17 11:00 02/13/17 10:59 01/16/17 09:44 Midodrine (Pro-Amatine) 5 mg THREE TIMES A DAY GT 01/14/17 09:00 02/13/17 08:59 01/16/17 09:42 Nitroglycerin (Ntg) 0.4 mg Q5MIN X 3 DOSES PRN SL Prn Chest Pain 01/12/17 22:00 02/11/17 21:59 Ondansetron HCl (Zofran) 4 mg Q6H PRN IVP Nausea & Vomiting 01/12/17 22:00 02/11/17 21:59 Piperacillin Sod/ Tazobactam Sod/ Sodium Chloride (Zosyn/Sodium Chloride) 110 ml @ 27.5 mls/hr Q8H IVPB 01/15/17 18:00 01/22/17 17:59 01/16/17 09:58 Polyethylene Glycol (Miralax) 17 gm DAILYPRN PRN GT Constipation 01/14/17 01:30 02/13/17 01:29 Promethazine HCl/ Codeine (Phenergan with Codeine) 5 ml Q4H PRN GT For Cough 01/14/17 02:00 02/13/17 01:59 Temazepam (Restoril) 15 mg HSPRN PRN GT Insomnia 01/14/17 01:30 01/21/17 01:29 Vancomycin HCl (Vanco rx to dose) 1 ea DAILY PRN MISC Per rx protocol 01/12/17 22:00 02/11/17 21:59 Vancomycin HCl/ Dextrose (Vancomycin/D5W) 275 ml @ 183.333 mls/hr Q24H IVPB 5/6/17 21:00 01/19/17 20:59 01/15/17 21:11 Warfarin Sodium (Coumadin) 5 mg COUMADIN ONCE ORAL 01/16/17 17:00 01/16/17 17:01 Warfarin Sodium 1 ea 1 ea DAILY PRN MISC Per rx protocol 01/14/17 17:15 02/13/17 17:14 ALMA LINDO January 16, 2017 12:52
--- NOTE | 2017-01-16 13:56 | Cardiology Progress Note ---
Assessment/Plan Assessment/Plan 1. Sinus tachycardia, resolved, likely due to sepsis/PNA given bandemia and abnormal CXR. 2. Dyspnea, hypoxic respiratory failure, possibly aspiration. 3. Normal LV systolic function 4. Hx of HTN Subjective Subjective Sinus rhythm at 70. Objective Last 24 Hour Vital Signs Date Time Temp Pulse Resp B/P Pulse Ox O2 Delivery O2 Flow Rate FiO2 01/16/17 13:08 71 18 98 01/16/17 12:29 40 01/16/17 11:20 72 19 98 01/16/17 08:48 70 16 99 Facial 30 01/16/17 08:02 30 01/16/17 08:00 64 01/16/17 08:00 97.9 70 17 108/68 99 Bi-pap 30 01/16/17 07:31 99 Bi-pap 30 01/16/17 07:29 74 20 99 Facial 30 01/16/17 05:10 70 22 99 Facial 30 01/16/17 04:00 98.2 74 20 114/80 100 Bi-pap 2.0 01/16/17 04:00 71 01/16/17 04:00 30 01/16/17 03:16 76 19 98 Facial 30 01/16/17 01:30 30 01/16/17 01:20 73 19 99 Facial 30 01/16/17 00:00 97.7 68 20 113/74 100 Nasal Cannula 2.0 01/16/17 00:00 67 01/15/17 23:20 66 18 100 01/15/17 21:17 61 18 100 01/15/17 20:00 62 01/15/17 20:00 98.2 55 20 117/73 100 Venturi Mask 2.0 01/15/17 19:30 99 Venturi Mask 8.0 40 01/15/17 19:30 58 18 99 01/15/17 16:00 68 01/15/17 16:00 98.3 69 23 101/58 100 Venturi Mask 40 01/15/17 15:20 65 19 99 Facial 30 Intake and Output 01/15/17 01/16/17 19:00 07:00 Intake Total 702.5 ml 1067.500 ml Output Total 750 ml 600 ml Balance -47.5 ml 467.500 ml Intake Free Water 675 ml 600 ml IV Total 27.5 ml 467.500 ml Output Urine Total 750 ml 600 ml # Bowel Movements 2 2D Echo: Echo form 12/21: Normal LV systolic function with LVEF at 60-65% Laboratory Tests Test 01/16/17 04:55 01/16/17 05:00 White Blood Count 5.3 K/UL (4.8-10.8) Red Blood Count 4.31 M/UL (4.70-6.10) L Hemoglobin 10.1 G/DL (14.2-18.0) L Hematocrit 33.5 % (42.0-52.0) L Mean Corpuscular Volume 78 FL (80-99) L Mean Corpuscular Hemoglobin 23.4 PG (27.0-31.0) L Mean Corpuscular Hemoglobin Concent 30.1 G/DL (32.0-36.0) L Red Cell Distribution Width 23.2 % (11.6-14.8) H Platelet Count 173 K/UL (150-450) Mean Platelet Volume 12.4 FL (6.5-10.1) H Neutrophils (%) (Auto) 62.2 % (45.0-75.0) Lymphocytes (%) (Auto) 19.9 % (20.0-45.0) L Monocytes (%) (Auto) 9.4 % (1.0-10.0) Eosinophils (%) (Auto) 7.8 % (0.0-3.0) H Basophils (%) (Auto) 0.6 % (0.0-2.0) Prothrombin Time 14.4 SEC (9.30-11.50) H Prothromb Time International Ratio 1.4 (0.9-1.1) H Sodium Level 149 mEQ/L (135-145) H Potassium Level 3.9 mEQ/L (3.4-4.9) Chloride Level 111 mEQ/L (98-107) H Carbon Dioxide Level 21 mEQ/L (20-30) Anion Gap 17 (5-15) H Blood Urea Nitrogen 31 mg/dL (7-23) H Creatinine 1.0 mg/dL (0.7-1.2) Estimat Glomerular Filtration Rate > 60 mL/min (>60) Glucose Level 87 mg/dL (74-106) Calcium Level 8.6 mg/dL (8.6-10.2) Stool Occult Blood Pending Microbiology Date/Time Source Procedure Growth Status 01/14/17 15:30 Sputum Gram Stain - Final Complete 01/14/17 15:30 Sputum Sputum Culture - Final CULTURE NOT PERFORMED ... Complete Objective GENERAL: Middle-aged male, lying in bed, on oxygen via mask, comfortable, not in distress. HEENT: Normocephalic and atraumatic. PERRLA, EOMI NECK: No JVD, no carotid bruit with 2+ upstroke B/L CARDIOVASCULAR: Regular rate and rhythm. No murmurs, gallops or rubs. LUNGS: Crackles with diminished breathing sound on the right lower lobe. ABDOMEN: Soft, nontender, and nondistended. Positive bowel sounds. No hepatosplenomegaly. EXTREMITIES: No edema, clubbing or cyanosis. . VOLODYMYR BLANCHARD January 16, 2017 13:56
--- NOTE | 2017-01-16 14:36 | General Progress Note ---
Assessment/Plan Problem List: (1) CHF (congestive heart failure) ICD Codes: I50.9 - Heart failure, unspecified SNOMED: 58255662 (2) Schizophrenia ICD Codes: F20.9 - Schizophrenia, unspecified SNOMED: 57275760 (3) Anemia ICD Codes: D64.9 - Anemia, unspecified SNOMED: 474788123 (4) Encephalopathy ICD Codes: G93.40 - Encephalopathy, unspecified SNOMED: 57014116, 184219513 (5) UTI (urinary tract infection) ICD Codes: N39.0 - Urinary tract infection, site not specified SNOMED: 82647402 (6) Pneumonia ICD Codes: J18.9 - Pneumonia, unspecified organism SNOMED: 376356106 (7) COPD (chronic obstructive pulmonary disease) ICD Codes: J44.9 - Chronic obstructive pulmonary disease, unspecified SNOMED: 05684654 (8) Acute respiratory failure ICD Codes: J96.00 - Acute respiratory failure, unspecified whether with hypoxia or hypercapnia SNOMED: 56101171 (9) Elevated troponin ICD Codes: R74.8 - Abnormal levels of other serum enzymes SNOMED: 090177836, 720708548 Status: stable, progressing, tolerating diet Assessment/Plan bipap abx cbc bmp am cardio neph f/u dc plan Subjective Constitutional: Reports: weakness Allergies: Coded Allergies: No Known Allergies (Unverified , 12/05/15) All Systems: reviewed and negative except above Subjective on bipap confused Objective Last 24 Hour Vital Signs Date Time Temp Pulse Resp B/P Pulse Ox O2 Delivery O2 Flow Rate FiO2 01/16/17 13:08 71 18 98 01/16/17 12:29 40 01/16/17 11:20 72 19 98 01/16/17 08:48 70 16 99 Facial 30 01/16/17 08:02 30 01/16/17 08:00 64 01/16/17 08:00 97.9 70 17 108/68 99 Bi-pap 30 01/16/17 07:31 99 Bi-pap 30 01/16/17 07:29 74 20 99 Facial 30 01/16/17 05:10 70 22 99 Facial 30 01/16/17 04:00 98.2 74 20 114/80 100 Bi-pap 2.0 01/16/17 04:00 71 01/16/17 04:00 30 01/16/17 03:16 76 19 98 Facial 30 01/16/17 01:30 30 01/16/17 01:20 73 19 99 Facial 30 01/16/17 00:00 97.7 68 20 113/74 100 Nasal Cannula 2.0 01/16/17 00:00 67 01/15/17 23:20 66 18 100 01/15/17 21:17 61 18 100 01/15/17 20:00 62 01/15/17 20:00 98.2 55 20 117/73 100 Venturi Mask 2.0 01/15/17 19:30 99 Venturi Mask 8.0 40 01/15/17 19:30 58 18 99 01/15/17 16:00 68 01/15/17 16:00 98.3 69 23 101/58 100 Venturi Mask 40 01/15/17 15:20 65 19 99 Facial 30 Intake and Output 01/15/17 01/16/17 19:00 07:00 Intake Total 702.5 ml 1067.500 ml Output Total 750 ml 600 ml Balance -47.5 ml 467.500 ml Intake Free Water 675 ml 600 ml IV Total 27.5 ml 467.500 ml Output Urine Total 750 ml 600 ml # Bowel Movements 2 Laboratory Tests 01/16/17 04:55: White Blood Count 5.3, Red Blood Count 4.31L, Hemoglobin 10.1L, Hematocrit 33.5L , Mean Corpuscular Volume 78L, Mean Corpuscular Hemoglobin 23.4L, Mean Corpuscular Hemoglobin Concent 30.1L, Red Cell Distribution Width 23.2H, Platelet Count 173, Mean Platelet Volume 12.4H, Neutrophils (%) (Auto) 62.2, Lymphocytes (%) (Auto) 19.9L, Monocytes (%) (Auto) 9.4, Eosinophils (%) (Auto) 7.8H, Basophils (%) (Auto) 0.6, Prothrombin Time 14.4H, Prothromb Time International Ratio 1.4H, Sodium Level 149H, Potassium Level 3.9, Chloride Level 111H, Carbon Dioxide Level 21, Anion Gap 17H, Blood Urea Nitrogen 31H, Creatinine 1.0, Estimat Glomerular Filtration Rate > 60, Glucose Level 87, Calcium Level 8.6 01/16/17 05:00: Stool Occult Blood Positive Height (Feet): 6 Height (Inches): 0.00 Weight (Pounds): 150 General Appearance: lethargic, confused EENT: normal ENT inspection Neck: normal alignment Cardiovascular: normal peripheral pulses, normal rate, regular rhythm Respiratory/Chest: chest wall non-tender, lungs clear, decreased breath sounds Abdomen: normal bowel sounds, non tender, soft Extremities: normal inspection Edema: no edema noted Arm (L), no edema noted Arm (R), no edema noted Leg (L), no edema noted Leg (R), no edema noted Pedal (L), no edema noted Pedal (R), no edema noted Generalized Neurologic: motor weakness Skin: normal pigmentation, warm/dry ALONDRA SINGH January 16, 2017 14:36
--- NOTE | 2017-01-16 15:23 | Infectious Diseases Prog Note ---
Assessment/Plan Problems: (1) Severe sepsis with septic shock Assessment & Plan: blood culture grew gram positive cocci from one bottle , most likely contaminant , continue antibiotics to cover for pneumonia (2) HCAP (healthcare-associated pneumonia) Assessment & Plan: sputum culture was not performed , will continue zosyn with vancomycin renally dosed by pharmacist, empiric treatment for 10 days (3) MAR (acute kidney injury) Assessment & Plan: due to sepsis , recommend hydration, monitor UOP, consult renal (4) Acute respiratory failure Assessment & Plan: due to the above, on high flow via venturi mask, monitor ABG , further management as per legal financial specialist Subjective ROS Limited/Unobtainable: Yes Allergies: Coded Allergies: No Known Allergies (Unverified , 12/05/15) Subjective he was up in bed, off BIPAP, on venturi mask, breathing ok with no tachypnea or distress Objective Vital Signs Last 24 Hour Vital Signs Date Time Temp Pulse Resp B/P Pulse Ox O2 Delivery O2 Flow Rate FiO2 01/16/17 15:00 70 18 99 01/16/17 13:08 71 18 98 01/16/17 12:29 40 01/16/17 11:20 72 19 98 01/16/17 08:48 70 16 99 Facial 30 01/16/17 08:02 30 01/16/17 08:00 64 01/16/17 08:00 97.9 70 17 108/68 99 Bi-pap 30 01/16/17 07:31 99 Bi-pap 30 01/16/17 07:29 74 20 99 Facial 30 01/16/17 05:10 70 22 99 Facial 30 01/16/17 04:00 98.2 74 20 114/80 100 Bi-pap 2.0 01/16/17 04:00 71 01/16/17 04:00 30 01/16/17 03:16 76 19 98 Facial 30 01/16/17 01:30 30 01/16/17 01:20 73 19 99 Facial 30 01/16/17 00:00 97.7 68 20 113/74 100 Nasal Cannula 2.0 01/16/17 00:00 67 01/15/17 23:20 66 18 100 01/15/17 21:17 61 18 100 01/15/17 20:00 62 01/15/17 20:00 98.2 55 20 117/73 100 Venturi Mask 2.0 01/15/17 19:30 99 Venturi Mask 8.0 40 01/15/17 19:30 58 18 99 01/15/17 16:00 68 01/15/17 16:00 98.3 69 23 101/58 100 Venturi Mask 40 01/15/17 15:20 65 19 99 Facial 30 Height (Feet): 6 Height (Inches): 0.00 Weight (Pounds): 150 General Appearance: WD/WN, no acute distress HEENT: normocephalic, atraumatic, anicteric, mucous membranes moist Respiratory/Chest: chest wall non-tender, lungs clear, no accessory muscle use , decreased breath sounds, crackles/rales Cardiovascular: normal peripheral pulses, normal rate, regular rhythm, no gallop/murmur Abdomen: normal bowel sounds, soft, non tender, no organomegaly, non distended , no mass Extremities: no cyanosis, no clubbing Skin: no rash, no lesions Microbiology Date/Time Source Procedure Growth Status 01/14/17 15:30 Sputum Gram Stain - Final Complete 01/14/17 15:30 Sputum Sputum Culture - Final CULTURE NOT PERFORMED ... Complete Laboratory Tests Test 01/16/17 04:55 01/16/17 05:00 White Blood Count 5.3 K/UL (4.8-10.8) Red Blood Count 4.31 M/UL (4.70-6.10) L Hemoglobin 10.1 G/DL (14.2-18.0) L Hematocrit 33.5 % (42.0-52.0) L Mean Corpuscular Volume 78 FL (80-99) L Mean Corpuscular Hemoglobin 23.4 PG (27.0-31.0) L Mean Corpuscular Hemoglobin Concent 30.1 G/DL (32.0-36.0) L Red Cell Distribution Width 23.2 % (11.6-14.8) H Platelet Count 173 K/UL (150-450) Mean Platelet Volume 12.4 FL (6.5-10.1) H Neutrophils (%) (Auto) 62.2 % (45.0-75.0) Lymphocytes (%) (Auto) 19.9 % (20.0-45.0) L Monocytes (%) (Auto) 9.4 % (1.0-10.0) Eosinophils (%) (Auto) 7.8 % (0.0-3.0) H Basophils (%) (Auto) 0.6 % (0.0-2.0) Prothrombin Time 14.4 SEC (9.30-11.50) H Prothromb Time International Ratio 1.4 (0.9-1.1) H Sodium Level 149 mEQ/L (135-145) H Potassium Level 3.9 mEQ/L (3.4-4.9) Chloride Level 111 mEQ/L (98-107) H Carbon Dioxide Level 21 mEQ/L (20-30) Anion Gap 17 (5-15) H Blood Urea Nitrogen 31 mg/dL (7-23) H Creatinine 1.0 mg/dL (0.7-1.2) Estimat Glomerular Filtration Rate > 60 mL/min (>60) Glucose Level 87 mg/dL (74-106) Calcium Level 8.6 mg/dL (8.6-10.2) Stool Occult Blood Positive (NEGATIVE) Current Medications Medications (Trade) Dose Ordered Sig/Gloria Route PRN Reason Start Time Stop Time Status Last Admin Dose Admin Acetaminophen (Tylenol) 650 mg Q4H PRN ORAL fever 01/12/17 22:00 02/11/17 21:59 Al Hydroxide/Mg Hydroxide (Mylanta II) 30 ml Q6H PRN GT dyspepsia 01/14/17 04:00 02/13/17 03:59 Albuterol/ Ipratropium (DuoNeb 0.5-3(2.5)mg/3ml) 3 ml Q4H PRN HHN Shortness of Breath 01/12/17 22:00 01/17/17 21:59 Enoxaparin Sodium 70 mg 70 mg EVERY 12 HOURS SUBQ 01/14/17 11:00 02/13/17 10:59 01/16/17 09:44 Midodrine (Pro-Amatine) 5 mg THREE TIMES A DAY GT 01/14/17 09:00 02/13/17 08:59 01/16/17 12:53 Nitroglycerin (Ntg) 0.4 mg Q5MIN X 3 DOSES PRN SL Prn Chest Pain 01/12/17 22:00 02/11/17 21:59 Ondansetron HCl (Zofran) 4 mg Q6H PRN IVP Nausea & Vomiting 01/12/17 22:00 02/11/17 21:59 Piperacillin Sod/ Tazobactam Sod/ Sodium Chloride (Zosyn/Sodium Chloride) 110 ml @ 27.5 mls/hr Q8H IVPB 01/15/17 18:00 01/22/17 17:59 01/16/17 09:58 Polyethylene Glycol (Miralax) 17 gm DAILYPRN PRN GT Constipation 01/14/17 01:30 02/13/17 01:29 Promethazine HCl/ Codeine (Phenergan with Codeine) 5 ml Q4H PRN GT For Cough 01/14/17 02:00 02/13/17 01:59 Temazepam (Restoril) 15 mg HSPRN PRN GT Insomnia 01/14/17 01:30 01/21/17 01:29 Vancomycin HCl (Vanco rx to dose) 1 ea DAILY PRN MISC Per rx protocol 01/12/17 22:00 02/11/17 21:59 Vancomycin HCl/ Dextrose (Vancomycin/D5W) 275 ml @ 183.333 mls/hr Q24H IVPB 01/14/17 21:00 01/19/17 20:59 01/15/17 21:11 Warfarin Sodium (Coumadin) 5 mg COUMADIN ONCE ORAL 01/16/17 17:00 01/16/17 17:01 Warfarin Sodium 1 ea 1 ea DAILY PRN MISC Per rx protocol 01/14/17 17:15 02/13/17 17:14 Frankie Ratliff M.D. January 16, 2017 15:23
[2017-01-16 16:00] VITALS: BP 108/62
[2017-01-16] MEDS ORDERED: Warfarin Sodium 5mg ORAL ONE (17:00)
--- NOTE | 2017-01-16 18:51 | Cardiology Report ---
APPROVED REPORT EXAM: Two-dimensional and M-mode echocardiogram with Doppler and color Doppler. INDICATION Shortness of breath M-Mode DIMENSIONS Left Atrium (MM)3.8 (1.6-4.0cm) Aortic Root3.4 (2.0-3.7cm) Aortic Cusp Exc.2.0 (1.5-2.0cm) Technically difficult study due to poor acoustic windows. Study quality precludes accurate assessment of regional wall motion. M-mode measurements could not be obtained due to cardiac position. Normal left ventricular chamber size, systolic function and wall motion to extent visualized. Left ventricular ejection fraction estimated to be 60 %. No evidence of ventricular hypertrophy. No evidence of pericardial fat or effusion. All other cardiac chamber sizes are within normal limits. Mild focal aortic valve sclerosis with adequate cusp excursion. Mildly thickened mitral valve leaflets with normal excursion. Mild mitral annulus and aortic root calcification. Pulmonic valve not well visualized. Normal tricuspid valve structure. Subcostal views not obtainable due to GI tube. A color flow and spectral Doppler study was performed and revealed: Mild to moderate aortic regurgitation. Trace mitral regurgitation. Mitral inflow velocities indicates mild left ventricular diastolic disfunction. Trace tricuspid regurgitation. No pulmonic regurgitation present.
[2017-01-16 20:00] VITALS: BP 140/76
--- NOTE | 2017-01-16 20:02 | General Progress Note ---
Assessment/Plan Assessment/Plan IMPRESSION: 1. Leukocytosis with a left shift. 2. Anemia of chronic disease. 3. Anemia of iron deficiency. 4. Decreased hemoglobin and hematocrit, rule out gastrointestinal bleed. 5. Anemia of kidney disease. 6. Acute kidney injury. 7. Thrombocytopenia, multifactorial. 8. Acute respiratory failure. 9. Pneumonia. 10. Chronic obstructive pulmonary disease. 11. History of recent percutaneous endoscopic gastrostomy tube placement. 12. Dysphagia. 13. Acute renal failure. 14. Malnutrition. 15. Dehydration. 16. Coronary artery disease. 17. Hypertension. 18. Congestive heart failure. 19. History of deep venous thrombosis of the right lower extremity. 20. Anticoagulation with Lovenox and coumadin RECOMMENDATIONS: 1. Watch count. 2. Watch coagulopathy. 3. PRBC transfusion on a p.r.n. basis. 4. Coumadin and inr 2-3 5. Lovenox subcutaneous. 6. Skin care. 7. Nutrition. 8. Respiratory treatment. 9. Close followup. Subjective Constitutional: Reports: no symptoms HEENT: Reports: no symptoms Cardiovascular: Reports: no symptoms Respiratory: Reports: no symptoms Gastrointestinal/Abdominal: Reports: no symptoms Genitourinary: Reports: no symptoms Neurologic/Psychiatric: Reports: anxiety Endocrine: Reports: no symptoms, unexplained weight gain Hematologic/Lymphatic: Reports: anemia Allergies: Coded Allergies: No Known Allergies (Unverified , 12/05/15) Subjective off bipap , doing better, on coumadin Objective Last 24 Hour Vital Signs Date Time Temp Pulse Resp B/P Pulse Ox O2 Delivery O2 Flow Rate FiO2 01/16/17 17:02 72 18 99 01/16/17 16:41 40 01/16/17 16:00 97.5 55 18 108/62 98 Room Air 01/16/17 16:00 58 01/16/17 15:04 64 01/16/17 15:00 70 18 99 01/16/17 13:08 71 18 98 01/16/17 12:29 40 01/16/17 12:00 97.2 58 20 108/57 97 Venturi Mask 8.0 01/16/17 11:20 72 19 98 01/16/17 08:48 70 16 99 Facial 30 01/16/17 08:02 30 01/16/17 08:00 64 01/16/17 08:00 97.9 70 17 108/68 99 Bi-pap 30 01/16/17 07:31 99 Bi-pap 30 01/16/17 07:29 74 20 99 Facial 30 01/16/17 05:10 70 22 99 Facial 30 01/16/17 04:00 98.2 74 20 114/80 100 Bi-pap 2.0 01/16/17 04:00 71 01/16/17 04:00 30 01/16/17 03:16 76 19 98 Facial 30 01/16/17 01:30 30 01/16/17 01:20 73 19 99 Facial 30 01/16/17 00:00 97.7 68 20 113/74 100 Nasal Cannula 2.0 01/16/17 00:00 67 01/15/17 23:20 66 18 100 01/15/17 21:17 61 18 100 Intake and Output 01/15/17 01/16/17 19:00 07:00 Intake Total 702.5 ml 1067.500 ml Output Total 750 ml 600 ml Balance -47.5 ml 467.500 ml Intake Free Water 675 ml 600 ml IV Total 27.5 ml 467.500 ml Output Urine Total 750 ml 600 ml # Bowel Movements 2 Laboratory Tests 01/16/17 04:55: White Blood Count 5.3, Red Blood Count 4.31L, Hemoglobin 10.1L, Hematocrit 33.5L , Mean Corpuscular Volume 78L, Mean Corpuscular Hemoglobin 23.4L, Mean Corpuscular Hemoglobin Concent 30.1L, Red Cell Distribution Width 23.2H, Platelet Count 173, Mean Platelet Volume 12.4H, Neutrophils (%) (Auto) 62.2, Lymphocytes (%) (Auto) 19.9L, Monocytes (%) (Auto) 9.4, Eosinophils (%) (Auto) 7.8H, Basophils (%) (Auto) 0.6, Prothrombin Time 14.4H, Prothromb Time International Ratio 1.4H, Sodium Level 149H, Potassium Level 3.9, Chloride Level 111H, Carbon Dioxide Level 21, Anion Gap 17H, Blood Urea Nitrogen 31H, Creatinine 1.0, Estimat Glomerular Filtration Rate > 60, Glucose Level 87, Calcium Level 8.6 01/16/17 05:00: Stool Occult Blood Positive Height (Feet): 6 Height (Inches): 0.00 Weight (Pounds): 150 General Appearance: no apparent distress EENT: pharynx normal Neck: normal alignment Cardiovascular: regular rhythm Respiratory/Chest: normal breath sounds Abdomen: soft Extremities: normal range of motion Edema: 1+ Leg (L), 1+ Leg (R) Edema: mild edema Neurologic: alert Skin: warm/dry Gilberto Freedman January 16, 2017 20:02
[2017-01-16] MEDS ORDERED: Nitroglycerin Subl 0.4mg tab (Bottle Of 25) SL PRN (20:45)
[2017-01-16] MEDS ORDERED: Miralax 17gm pkt GT PRN (21:00)
[2017-01-16] MEDS ORDERED: Promethazine/Codeine 5ml UD GT PRN (21:00)
[2017-01-16] MEDS ORDERED: DuoNeb 0.5-3(2.5)mg/3ml neb HHN PRN (21:00)
[2017-01-16] MEDS ORDERED: Acetaminophen 650mg/20.3ml GT PRN (21:00)
[2017-01-16] MEDS: Vancomycin 1.25 GM in D5W 275 ML IVPB SCH (21:58)
[2017-01-16] MEDS ORDERED: Mylanta II UD 30ml GT PRN (22:00)
[2017-01-17] VITALS: BP 138/72
[2017-01-17] MEDS: Piperacillin/Tazobactam 3.375 GM in NS 110 ML IVPB SCH ×3 (02:10→18:35)
[2017-01-17 04:00] VITALS: BP 121/62
[2017-01-17 07:04] LABS: INR 2.4 (0.9-1.1); PROTHROMBIN TIME 25.5 SEC (9.30-11.50)
[2017-01-17 07:20] LABS: BASOPHILS % (AUTO) 0.4 % (0.0-2.0); EOSINOPHILS % (AUTO) 10.6 % (0.0-3.0); LYMPHOCYTES % (AUTO) 21.7 % (20.0-45.0); MEAN CORPUSCULAR HEMOGLOBIN 23.2 PG (27.0-31.0); MEAN CORPUSCULAR HGB CONC 30.2 G/DL (32.0-36.0); MEAN CORPUSCULAR VOLUME 77 FL (80-99); MEAN PLATELET VOLUME 12.6 FL (6.5-10.1); MONOCYTES % (AUTO) 9.9 % (1.0-10.0); NEUTROPHILS % (AUTO) 57.4 % (45.0-75.0); PLATELET COUNT 156 K/UL (150-450); RED BLOOD COUNT 4.11 M/UL (4.70-6.10); RED CELL DISTRIBUTION WIDTH 22.6 % (11.6-14.8); WHITE BLOOD COUNT 4.8 K/UL (4.8-10.8)
[2017-01-17 07:23] LABS: ANION GAP 13 (5-15); CALCIUM 8.7 mg/dL (8.6-10.2); CARBON DIOXIDE 25 mEQ/L (20-30); CHLORIDE 109 mEQ/L (98-107); CREATININE 0.9 mg/dL (0.7-1.2); GLOMERULAR FILTRATION RATE > 60 mL/min (>60); HEMOLYSIS 2; POTASSIUM 3.4 mEQ/L (3.4-4.9); SODIUM 147 mEQ/L (135-145)
[2017-01-17 08:15] VITALS: BP 91/45
[2017-01-17] MEDS ORDERED: LORazepam Inj 2mg/ml 1ml IV PRN (09:00)
[2017-01-17] MEDS: Enoxaparin Sodium 300mg/3ml vial SUBQ SCH (09:40)
[2017-01-17] MEDS ORDERED: NS 275ml ONE (10:22)
[2017-01-17 11:53] VITALS: BP 110/73
--- NOTE | 2017-01-17 12:57 | GI Initial Consult Note ---
Beth Carver NMaximoPMaximo 01/17/17 1256: History of Present Illness General Date patient seen: January 17, 2017 Time patient seen: 11:00 Reason for Hospitalization: Dyspnea/Respdistress Referring physician: Dr. Rangel Reason for Consultation: OCCULT STOOL POSITIVE Present Illness HPI Patient is a 66-year-old male who presented after increased difficulty breathing. Patient had a been sent in from longterm. Patient had reportedly been febrile. The patient had been noticed to have increased her Subroto? started on supplemental oxygen 4 L. The patient was seen by EMS was started on nonrebreather. The patient gradual onset of worsening of symptoms. Patient appears he been hospitalized for sepsis. Patient not noted to be vomiting or having any diarrhea. GI CONSULT: HPI noted above. GI consulted for positive occult blood. ROS limited, pt seen on floor in mild resp distress with mask. Pt recently s/p PEG with GTFs. Area c/d/i with no signs of drainage of bleeding. Patient presents today with anemia, transaminitis, GTFs and positive occult blood. Home Meds Reported Medications Ondansetron* (ZOFRAN*) 4 Mg Tablet, 4 MG ORAL Q6H Y for Nausea & Vomiting, TAB 01/18/17 Al Hydroxide/mg Hydroxide (Mag-Al Plus Suspension) 30 Ml Oral.susp, 30 ML GT Q6HR Y for Abdominal cramps, ML 01/18/17 Warfarin Sod* (COUMADIN*) 3 Mg Tablet, 3 MG ORAL DAILY, TAB 01/18/17 Vancomycin Hcl (Vancomycin) 1 Gm Vial, 1.25 GM IV Q24H, VIAL 01/18/17 Polyethylene Glycol 3350* (MIRALAX*) 17 Gm Powd.pack, 17 GM GT DAILY Y for Constipation, PACKET 01/18/17 Eqaekznomlpd-Tkjg-Syzubuyl,Iso (ZOSYN 3.375 GM PRE MIX-BAG) 3.375 Gm/50 Ml Froz.piggy, 3.375 GM IVPB EVERY 8 HOURS, BAG 01/18/17 Olanzapine* (ZYPREXA*) 10 Mg Tablet, 10 MG GT BID, #30 TAB 0 Refills 01/18/17 Lorazepam* (ATIVAN*) 1 Mg Tablet, 1 MG ORAL Q6HR Y for For Anxiety, TAB 01/18/17 Ipratropium/Albuterol Sulfate (DuoNeb 0.5-3(2.5)mg/3ml) 3 Ml Ampul.neb, 3 ML HHN Q4HR Y for Shortness of Breath, EA 01/18/17 Famotidine (PEPCID) 20 Mg Tablet, 20 MG ORAL Q12HR, #7 TAB 0 Refills 01/18/17 Temazepam* (RESTORIL*) 15 Mg Capsule, 15 MG ORAL BEDTIME Y for Insomnia, CAP 12/29/16 Nitroglycerin (NITROGLYCERIN) 0.4 Mg Tab.subl, 0.4 MG SL Y for Prn Chest Pain, TAB 12/29/16 Codeine/Promethazine Hcl* (PROMETHAZINE-CODEINE SYRUP*) 118 Ml Syrup, 5 ML ORAL Q4H Y for For Cough, ML 0 Refills 12/29/16 Acetaminophen (Tylenol) 325 Mg Tablet, 325 MG ORAL Q4HR Y for For Pain, #30 TAB 0 Refills 12/29/16 Midodrine* (PROAMATINE*) 5 Mg Tablet, 5 MG ORAL THREE TIMES A DAY, TAB 12/20/16 Discontinued Reported Medications Acetaminophen* (ACETAMINOPHEN 325MG TABLET*) 325 Mg Tablet, 650 MG ORAL Q4H Y for For Pain, TAB 01/12/17 Potassium Chloride (Potassium Chloride) 20 Meq/15 Ml Liquid, 20 MEQ GT DAILY, ML 12/29/16 Ondansetron* (ZOFRAN*) 4 Mg Tablet, 4 MG ORAL Q6H Y for Nausea & Vomiting, TAB 12/29/16 Enoxaparin* (LOVENOX*) 80 Mg/0.8 Ml Inj, 80 MG SUBQ EVERY 12 HOURS, #60 EA 0 Refills 12/29/16 Acetaminophen* (TYLENOL*) 120 Mg Supp.rect, 650 MG RECTAL Q4H Y for Mild Pain/ Temp > 100.5, SUPP 12/29/16 Lorazepam* (LORAZEPAM*) 0.5 Mg Tablet, 0.5 MG ORAL Q4HR Y for For Anxiety, TAB 12/29/16 Bisacodyl (BISACODYL) 10 Mg Supp.rect, 10 MG RC, SUPP 12/20/16 Magnesium Hydroxide (Milk of Magnesia) 30 Ml Susp, 30 ML ORAL DAILY 12/05/15 Al Hydroxide/mg Hydroxide (Mag-Al Liquid) 30 Ml Susp, 30 ML GT 12/05/15 Med list reviewed/reconciled: Yes Allergies: Coded Allergies: No Known Allergies (Unverified , 12/05/15) Patient History Limited by: medical condition History Provided By: Medical Record PMH Narrative Hx Cardiac Problems: Yes - HF, Anemia, Dehydration, Severe Sepsis, DVT Hx Hypertension: Yes Hx COPD: Yes - Aspiration, PNA Hx Cancer: No Review of Systems All Other Systems: limited Physical Exam Vital Signs Date Time Temp Pulse Resp B/P Pulse Ox O2 Delivery O2 Flow Rate FiO2 01/13/17 07:01 85 16 99 Facial 30 01/13/17 07:14 97.0 92/63 15.0 Sp02 EP Interpretation: reviewed Labs Laboratory Tests Test 01/16/17 20:00 01/17/17 06:20 01/17/17 11:00 Vancomycin Level Trough 14.1 ug/mL (5.0-12.0) H White Blood Count 4.8 K/UL (4.8-10.8) Red Blood Count 4.11 M/UL (4.70-6.10) L Hemoglobin 9.5 G/DL (14.2-18.0) L Hematocrit 31.6 % (42.0-52.0) L Mean Corpuscular Volume 77 FL (80-99) L Mean Corpuscular Hemoglobin 23.2 PG (27.0-31.0) L Mean Corpuscular Hemoglobin Concent 30.2 G/DL (32.0-36.0) L Red Cell Distribution Width 22.6 % (11.6-14.8) H Platelet Count 156 K/UL (150-450) Mean Platelet Volume 12.6 FL (6.5-10.1) H Neutrophils (%) (Auto) 57.4 % (45.0-75.0) Lymphocytes (%) (Auto) 21.7 % (20.0-45.0) Monocytes (%) (Auto) 9.9 % (1.0-10.0) Eosinophils (%) (Auto) 10.6 % (0.0-3.0) H Basophils (%) (Auto) 0.4 % (0.0-2.0) Prothrombin Time 25.5 SEC (9.30-11.50) H Prothromb Time International Ratio 2.4 (0.9-1.1) H Sodium Level 147 mEQ/L (135-145) H Potassium Level 3.4 mEQ/L (3.4-4.9) Chloride Level 109 mEQ/L (98-107) H Carbon Dioxide Level 25 mEQ/L (20-30) Anion Gap 13 (5-15) Blood Urea Nitrogen 24 mg/dL (7-23) H Creatinine 0.9 mg/dL (0.7-1.2) Estimat Glomerular Filtration Rate > 60 mL/min (>60) Glucose Level 118 mg/dL (74-106) H Calcium Level 8.7 mg/dL (8.6-10.2) Urine Random Creatinine Pending Urine Random Microalbumin Pending Urine Microalbumin/Creatinine Ratio Pending General Appearance: well appearing, alert, mild distress - facial Head: normocephalic Neck: supple Respiratory: no respiratory distress Cardiovascular: normal rate Gastrointestinal: gt - c/d/i Neurologic: alert Skin: normal inspection, normal color, no rash, warm/dry Lymphatic: normal inspection, no adenopathy Current Medications Current Medications Medications (Trade) Dose Ordered Sig/Gloria Route PRN Reason Start Time Stop Time Status Last Admin Dose Admin Acetaminophen (Tylenol) 650 mg Q4H PRN GT fever 01/16/17 21:00 02/15/17 20:59 Al Hydroxide/Mg Hydroxide (Mylanta II) 30 ml Q6H PRN GT dyspepsia 01/16/17 22:00 02/15/17 21:59 Albuterol/ Ipratropium (DuoNeb 0.5-3(2.5)mg/3ml) 3 ml Q4H PRN HHN Shortness of Breath 01/16/17 21:00 01/21/17 20:59 Enoxaparin Sodium (Lovenox) 70 mg EVERY 12 HOURS SUBQ 01/16/17 21:00 02/15/17 20:59 01/17/17 09:40 Lorazepam (Ativan 2mg/ml 1ml) 1 mg Q6H PRN IV AGITATION 01/17/17 09:00 01/24/17 08:59 01/17/17 10:26 Midodrine (Pro-Amatine) 5 mg THREE TIMES A DAY GT 01/17/17 09:00 02/16/17 08:59 01/17/17 09:37 Nitroglycerin (Ntg) 0.4 mg Q5MIN X 3 DOSES PRN SL Prn Chest Pain 01/16/17 20:45 02/15/17 20:44 Olanzapine (ZyPREXA) 10 mg BID ORAL 01/17/17 10:00 02/16/17 09:59 01/17/17 09:37 Ondansetron HCl (Zofran) 4 mg Q6H PRN IVP Nausea & Vomiting 01/16/17 21:00 02/15/17 20:59 Piperacillin Sod/ Tazobactam Sod 3.375 gm/Sodium Chloride 110 ml @ 27.5 mls/hr Q8H IVPB 01/17/17 02:00 01/21/17 01:59 01/17/17 10:18 Polyethylene Glycol (Miralax) 17 gm DAILYPRN PRN GT Constipation 01/16/17 21:00 02/15/17 20:59 Promethazine HCl/ Codeine (Phenergan with Codeine) 5 ml Q4H PRN GT For Cough 01/16/17 21:00 02/15/17 20:59 Temazepam (Restoril) 15 mg HSPRN PRN GT Insomnia 01/16/17 21:00 01/23/17 20:59 01/17/17 00:21 Vancomycin HCl (Vanco rx to dose) 1 ea DAILY PRN MISC Per rx protocol 01/16/17 21:00 02/15/17 20:59 Vancomycin HCl/ Dextrose (Vancomycin/D5W) 275 ml @ 183.333 mls/hr Q24H IVPB 01/16/17 21:00 01/21/17 20:59 01/16/17 21:58 Warfarin Sodium (Coumadin per pharmacy) 1 ea DAILY PRN MISC Per rx protocol 01/16/17 21:00 02/15/17 20:59 GI: Plan Problems: (1) Schizophrenia (2) Encephalopathy (3) Anemia (4) Alzheimer's dementia (5) Feeding by G-tube (6) Dehydration (7) Acid reflux Plan stable H&H despite occult blood positive >> will reorder OB stool monitor H&H, transfuse prn ordered iron panel GTFs per dietary, tolerating GT care and flush H2B fu labs pt on coumadin (must be stopped x 48 hours prior to any endoscopic procedure.) Discussed with Dr. Dinh. Thank you for referring this patient, we will follow. COLEMANAungSTACYD 01/19/17 0011: History of Present Illness General Reason for Hospitalization: Dyspnea/Respdistress Present Illness Home Meds Reported Medications Ondansetron* (ZOFRAN*) 4 Mg Tablet, 4 MG ORAL Q6H Y for Nausea & Vomiting, TAB 01/18/17 Al Hydroxide/mg Hydroxide (Mag-Al Plus Suspension) 30 Ml Oral.susp, 30 ML GT Q6HR Y for Abdominal cramps, ML 01/18/17 Warfarin Sod* (COUMADIN*) 3 Mg Tablet, 3 MG ORAL DAILY, TAB 01/18/17 Vancomycin Hcl (Vancomycin) 1 Gm Vial, 1.25 GM IV Q24H, VIAL 01/18/17 Polyethylene Glycol 3350* (MIRALAX*) 17 Gm Powd.pack, 17 GM GT DAILY Y for Constipation, PACKET 01/18/17 Nyrjpjuybjhu-Vjut-Gmxjauwx,Iso (ZOSYN 3.375 GM PRE MIX-BAG) 3.375 Gm/50 Ml Froz.piggy, 3.375 GM IVPB EVERY 8 HOURS, BAG 01/18/17 Olanzapine* (ZYPREXA*) 10 Mg Tablet, 10 MG GT BID, #30 TAB 0 Refills 01/18/17 Lorazepam* (ATIVAN*) 1 Mg Tablet, 1 MG ORAL Q6HR Y for For Anxiety, TAB 01/18/17 Ipratropium/Albuterol Sulfate (DuoNeb 0.5-3(2.5)mg/3ml) 3 Ml Ampul.neb, 3 ML HHN Q4HR Y for Shortness of Breath, EA 01/18/17 Famotidine (PEPCID) 20 Mg Tablet, 20 MG ORAL Q12HR, #7 TAB 0 Refills 01/18/17 Temazepam* (RESTORIL*) 15 Mg Capsule, 15 MG ORAL BEDTIME Y for Insomnia, CAP 12/29/16 Nitroglycerin (NITROGLYCERIN) 0.4 Mg Tab.subl, 0.4 MG SL Y for Prn Chest Pain, TAB 12/29/16 Codeine/Promethazine Hcl* (PROMETHAZINE-CODEINE SYRUP*) 118 Ml Syrup, 5 ML ORAL Q4H Y for For Cough, ML 0 Refills 12/29/16 Acetaminophen (Tylenol) 325 Mg Tablet, 325 MG ORAL Q4HR Y for For Pain, #30 TAB 0 Refills 12/29/16 Midodrine* (PROAMATINE*) 5 Mg Tablet, 5 MG ORAL THREE TIMES A DAY, TAB 12/20/16 Discontinued Reported Medications Acetaminophen* (ACETAMINOPHEN 325MG TABLET*) 325 Mg Tablet, 650 MG ORAL Q4H Y for For Pain, TAB 01/12/17 Potassium Chloride (Potassium Chloride) 20 Meq/15 Ml Liquid, 20 MEQ GT DAILY, ML 12/29/16 Ondansetron* (ZOFRAN*) 4 Mg Tablet, 4 MG ORAL Q6H Y for Nausea & Vomiting, TAB 12/29/16 Enoxaparin* (LOVENOX*) 80 Mg/0.8 Ml Inj, 80 MG SUBQ EVERY 12 HOURS, #60 EA 0 Refills 12/29/16 Acetaminophen* (TYLENOL*) 120 Mg Supp.rect, 650 MG RECTAL Q4H Y for Mild Pain/ Temp > 100.5, SUPP 12/29/16 Lorazepam* (LORAZEPAM*) 0.5 Mg Tablet, 0.5 MG ORAL Q4HR Y for For Anxiety, TAB 12/29/16 Bisacodyl (BISACODYL) 10 Mg Supp.rect, 10 MG RC, SUPP 12/20/16 Magnesium Hydroxide (Milk of Magnesia) 30 Ml Susp, 30 ML ORAL DAILY 12/05/15 Al Hydroxide/mg Hydroxide (Mag-Al Liquid) 30 Ml Susp, 30 ML GT 12/05/15 Allergies: Coded Allergies: No Known Allergies (Unverified , 12/05/15) GI: Plan Plan The patient was seen and examined at bedside and all new and available data was reviewed in the patients chart. I agree with the above findings, impression and plan. (Patient seen earlier today. Signature stamp does not reflect patient encounter time.). -[facility]s [facility] Wilver N.P. January 17, 2017 12:56 JESÚS DINH January 19, 2017 12:35
--- NOTE | 2017-01-17 14:18 | General Progress Note ---
Assessment/Plan Problem List: (1) CHF (congestive heart failure) ICD Codes: I50.9 - Heart failure, unspecified SNOMED: 73837232 (2) Schizophrenia ICD Codes: F20.9 - Schizophrenia, unspecified SNOMED: 88613297 (3) Anemia ICD Codes: D64.9 - Anemia, unspecified SNOMED: 606562953 (4) Encephalopathy ICD Codes: G93.40 - Encephalopathy, unspecified SNOMED: 03462921, 872600279 (5) UTI (urinary tract infection) ICD Codes: N39.0 - Urinary tract infection, site not specified SNOMED: 95282889 (6) Pneumonia ICD Codes: J18.9 - Pneumonia, unspecified organism SNOMED: 796568106 (7) COPD (chronic obstructive pulmonary disease) ICD Codes: J44.9 - Chronic obstructive pulmonary disease, unspecified SNOMED: 86484607 (8) Acute respiratory failure ICD Codes: J96.00 - Acute respiratory failure, unspecified whether with hypoxia or hypercapnia SNOMED: 85265109 (9) Elevated troponin ICD Codes: R74.8 - Abnormal levels of other serum enzymes SNOMED: 357321971, 381162911 Status: stable, progressing, tolerating diet Assessment/Plan bipap abx cbc bmp am cardio neph f/u dc plan Subjective Constitutional: Reports: weakness Respiratory: Reports: shortness of breath Allergies: Coded Allergies: No Known Allergies (Unverified , 12/05/15) All Systems: reviewed and negative except above Subjective o2 mask confused Objective Last 24 Hour Vital Signs Date Time Temp Pulse Resp B/P Pulse Ox O2 Delivery O2 Flow Rate FiO2 01/17/17 13:27 84 20 100 01/17/17 11:53 97.9 71 26 110/73 100 Nasal Cannula 2.0 01/17/17 09:04 70 25 99 Facial 30 01/17/17 08:15 97.7 70 27 91/45 99 Bi-pap 01/17/17 07:18 99 Bi-pap 30 01/17/17 07:18 Bi-pap 30 01/17/17 07:18 70 25 99 Facial 30 01/17/17 04:58 83 26 95 Facial 30 01/17/17 04:00 97.4 83 18 121/62 93 Simple Mask 8.0 01/17/17 03:28 81 26 98 Facial 30 01/17/17 01:10 78 26 97 Facial 30 01/17/17 00:00 98.0 80 18 138/72 99 Simple Mask 8.0 01/16/17 23:39 76 44 96 Facial 30 01/16/17 20:34 Venturi Mask 8.0 40 01/16/17 20:00 98.3 77 18 140/76 99 Simple Mask 8.0 01/16/17 19:35 99 Venturi Mask 8.0 40 01/16/17 19:00 01/16/17 17:02 72 18 99 01/16/17 16:41 40 01/16/17 16:00 97.5 55 18 108/62 98 Room Air 01/16/17 16:00 58 01/16/17 15:04 64 01/16/17 15:00 70 18 99 Intake and Output 01/16/17 01/17/17 19:00 07:00 Intake Total 600 ml 655.000 ml Output Total 950 ml 250 ml Balance -350 ml 405.000 ml Intake Free Water 600 ml 150 ml IV Total 385.000 ml Tube Feeding 120 ml Output Urine Total 950 ml 250 ml # Bowel Movements 7 Laboratory Tests 01/16/17 20:00: Vancomycin Level Trough 14.1H 01/17/17 06:20: White Blood Count 4.8, Red Blood Count 4.11L, Hemoglobin 9.5L, Hematocrit 31.6L , Mean Corpuscular Volume 77L, Mean Corpuscular Hemoglobin 23.2L, Mean Corpuscular Hemoglobin Concent 30.2L, Red Cell Distribution Width 22.6H, Platelet Count 156, Mean Platelet Volume 12.6H, Neutrophils (%) (Auto) 57.4, Lymphocytes (%) (Auto) 21.7, Monocytes (%) (Auto) 9.9, Eosinophils (%) (Auto) 10.6H, Basophils (%) (Auto) 0.4, Prothrombin Time 25.5H, Prothromb Time International Ratio 2.4H, Sodium Level 147H, Potassium Level 3.4, Chloride Level 109H, Carbon Dioxide Level 25, Anion Gap 13, Blood Urea Nitrogen 24H, Creatinine 0.9, Estimat Glomerular Filtration Rate > 60, Glucose Level 118H, Calcium Level 8.7 01/17/17 11:00: Urine Random Creatinine [Pending], Urine Random Microalbumin [Pending], Urine Microalbumin/Creatinine Ratio [Pending] Height (Feet): 6 Height (Inches): 0.00 Weight (Pounds): 150 General Appearance: lethargic, confused EENT: normal ENT inspection Neck: normal alignment Cardiovascular: normal peripheral pulses, normal rate, regular rhythm Respiratory/Chest: chest wall non-tender, lungs clear, decreased breath sounds Abdomen: normal bowel sounds, non tender, soft Extremities: normal inspection Edema: no edema noted Arm (L), no edema noted Arm (R), no edema noted Leg (L), no edema noted Leg (R), no edema noted Pedal (L), no edema noted Pedal (R), no edema noted Generalized Neurologic: motor weakness Skin: normal pigmentation, warm/dry ALONDRA SINGH January 17, 2017 14:18
--- NOTE | 2017-01-17 15:27 | Infectious Diseases Prog Note ---
Assessment/Plan Problems: (1) Severe sepsis with septic shock Assessment & Plan: blood culture grew gram positive cocci from one bottle , most likely contaminant , continue wide spectrum antibiotics to cover for pneumonia (2) HCAP (healthcare-associated pneumonia) Assessment & Plan: sputum culture was not performed , will continue zosyn with vancomycin renally dosed by pharmacist, empiric treatment for 10 days (3) MAR (acute kidney injury) Assessment & Plan: due to sepsis , recommend hydration, monitor UOP, consult renal (4) Acute respiratory failure Assessment & Plan: due to the above, on high flow via venturi mask, monitor ABG , further management as per wheel alignment technician Subjective ROS Limited/Unobtainable: Yes Allergies: Coded Allergies: No Known Allergies (Unverified , 12/05/15) Subjective he was awake, and alert, up in bed, off BIPAP, breathing ok with no tachypnea or distress Objective Vital Signs Last 24 Hour Vital Signs Date Time Temp Pulse Resp B/P Pulse Ox O2 Delivery O2 Flow Rate FiO2 01/17/17 13:27 84 20 100 01/17/17 11:53 97.9 71 26 110/73 100 Nasal Cannula 2.0 01/17/17 09:04 70 25 99 Facial 30 01/17/17 08:15 97.7 70 27 91/45 99 Bi-pap 01/17/17 07:18 99 Bi-pap 30 01/17/17 07:18 Bi-pap 30 01/17/17 07:18 70 25 99 Facial 30 01/17/17 04:58 83 26 95 Facial 30 01/17/17 04:00 97.4 83 18 121/62 93 Simple Mask 8.0 01/17/17 03:28 81 26 98 Facial 30 01/17/17 01:10 78 26 97 Facial 30 01/17/17 00:00 98.0 80 18 138/72 99 Simple Mask 8.0 01/16/17 23:39 76 44 96 Facial 30 01/16/17 20:34 Venturi Mask 8.0 40 01/16/17 20:00 98.3 77 18 140/76 99 Simple Mask 8.0 01/16/17 19:35 99 Venturi Mask 8.0 40 01/16/17 19:00 01/16/17 17:02 72 18 99 01/16/17 16:41 40 01/16/17 16:00 97.5 55 18 108/62 98 Room Air 01/16/17 16:00 58 Height (Feet): 6 Height (Inches): 0.00 Weight (Pounds): 150 General Appearance: WD/WN, no acute distress HEENT: normocephalic, atraumatic, anicteric, mucous membranes moist Respiratory/Chest: chest wall non-tender, no respiratory distress, no accessory muscle use, decreased breath sounds, crackles/rales Cardiovascular: normal peripheral pulses, normal rate, regular rhythm, no gallop/murmur Abdomen: normal bowel sounds, soft, non tender, no organomegaly, non distended , no mass Extremities: no cyanosis, no clubbing Skin: no rash, no lesions Lymphatic: no neck adenopathy, no groin adenopathy Musculoskeletal: normal muscle bulk Microbiology Date/Time Source Procedure Growth Status 01/14/17 15:30 Sputum Gram Stain - Final Complete 01/14/17 15:30 Sputum Sputum Culture - Final CULTURE NOT PERFORMED ... Complete Laboratory Tests Test 01/16/17 20:00 01/17/17 06:20 01/17/17 11:00 Vancomycin Level Trough 14.1 ug/mL (5.0-12.0) H White Blood Count 4.8 K/UL (4.8-10.8) Red Blood Count 4.11 M/UL (4.70-6.10) L Hemoglobin 9.5 G/DL (14.2-18.0) L Hematocrit 31.6 % (42.0-52.0) L Mean Corpuscular Volume 77 FL (80-99) L Mean Corpuscular Hemoglobin 23.2 PG (27.0-31.0) L Mean Corpuscular Hemoglobin Concent 30.2 G/DL (32.0-36.0) L Red Cell Distribution Width 22.6 % (11.6-14.8) H Platelet Count 156 K/UL (150-450) Mean Platelet Volume 12.6 FL (6.5-10.1) H Neutrophils (%) (Auto) 57.4 % (45.0-75.0) Lymphocytes (%) (Auto) 21.7 % (20.0-45.0) Monocytes (%) (Auto) 9.9 % (1.0-10.0) Eosinophils (%) (Auto) 10.6 % (0.0-3.0) H Basophils (%) (Auto) 0.4 % (0.0-2.0) Prothrombin Time 25.5 SEC (9.30-11.50) H Prothromb Time International Ratio 2.4 (0.9-1.1) H Sodium Level 147 mEQ/L (135-145) H Potassium Level 3.4 mEQ/L (3.4-4.9) Chloride Level 109 mEQ/L (98-107) H Carbon Dioxide Level 25 mEQ/L (20-30) Anion Gap 13 (5-15) Blood Urea Nitrogen 24 mg/dL (7-23) H Creatinine 0.9 mg/dL (0.7-1.2) Estimat Glomerular Filtration Rate > 60 mL/min (>60) Glucose Level 118 mg/dL (74-106) H Calcium Level 8.7 mg/dL (8.6-10.2) Urine Random Creatinine Pending Urine Random Microalbumin Pending Urine Microalbumin/Creatinine Ratio Pending Current Medications Medications (Trade) Dose Ordered Sig/Gloria Route PRN Reason Start Time Stop Time Status Last Admin Dose Admin Acetaminophen (Tylenol) 650 mg Q4H PRN GT fever 01/16/17 21:00 02/15/17 20:59 Al Hydroxide/Mg Hydroxide (Mylanta II) 30 ml Q6H PRN GT dyspepsia 01/16/17 22:00 02/15/17 21:59 Albuterol/ Ipratropium (DuoNeb 0.5-3(2.5)mg/3ml) 3 ml Q4H PRN HHN Shortness of Breath 01/16/17 21:00 01/21/17 20:59 Enoxaparin Sodium (Lovenox) 70 mg EVERY 12 HOURS SUBQ 01/16/17 21:00 02/15/17 20:59 01/17/17 09:40 Famotidine (Pepcid I.v.) 20 mg Q12HR IVP 01/17/17 21:00 02/16/17 20:59 Lorazepam (Ativan 2mg/ml 1ml) 1 mg Q6H PRN IV AGITATION 01/17/17 09:00 01/24/17 08:59 01/17/17 10:26 Midodrine (Pro-Amatine) 5 mg THREE TIMES A DAY GT 01/17/17 09:00 02/16/17 08:59 01/17/17 14:06 Nitroglycerin (Ntg) 0.4 mg Q5MIN X 3 DOSES PRN SL Prn Chest Pain 01/16/17 20:45 02/15/17 20:44 Olanzapine (ZyPREXA) 10 mg BID ORAL 01/17/17 10:00 02/16/17 09:59 01/17/17 09:37 Ondansetron HCl (Zofran) 4 mg Q6H PRN IVP Nausea & Vomiting 01/16/17 21:00 02/15/17 20:59 Piperacillin Sod/ Tazobactam Sod 3.375 gm/Sodium Chloride 110 ml @ 27.5 mls/hr Q8H IVPB 01/17/17 02:00 01/21/17 01:59 01/17/17 10:18 Polyethylene Glycol (Miralax) 17 gm DAILYPRN PRN GT Constipation 01/16/17 21:00 02/15/17 20:59 Promethazine HCl/ Codeine (Phenergan with Codeine) 5 ml Q4H PRN GT For Cough 01/16/17 21:00 02/15/17 20:59 Temazepam (Restoril) 15 mg HSPRN PRN GT Insomnia 01/16/17 21:00 01/23/17 20:59 01/17/17 00:21 Vancomycin HCl (Vanco rx to dose) 1 ea DAILY PRN MISC Per rx protocol 01/16/17 21:00 02/15/17 20:59 Vancomycin HCl/ Dextrose (Vancomycin/D5W) 275 ml @ 183.333 mls/hr Q24H IVPB 01/16/17 21:00 01/21/17 20:59 01/16/17 21:58 Warfarin Sodium (Coumadin per pharmacy) 1 ea DAILY PRN MISC Per rx protocol 01/16/17 21:00 02/15/17 20:59 Frankie Ratliff M.D. January 17, 2017 15:27
[2017-01-17 15:49] VITALS: BP 98/49
--- NOTE | 2017-01-17 17:08 | Pulmonology Progress Note ---
Assessment/Plan Problems: (1) Severe sepsis with septic shock (2) Acute respiratory failure (3) COPD (chronic obstructive pulmonary disease) (4) Alzheimer's dementia (5) Cachexia (6) Feeding by G-tube Assessment/Plan titrate fo2 bun/creatine improving f/u pulse oximeter continue antibiotics check cultures dvt prophylaxis tolerating diet consider changing the code status to DNR Subjective ROS Limited/Unobtainable: Yes Interval Events: comfortable Allergies: Coded Allergies: No Known Allergies (Unverified , 12/05/15) Objective Last 24 Hour Vital Signs Date Time Temp Pulse Resp B/P Pulse Ox O2 Delivery O2 Flow Rate FiO2 01/17/17 15:49 97.5 78 20 98/49 99 Simple Mask 10.0 01/17/17 15:02 86 20 100 01/17/17 13:27 84 20 100 01/17/17 11:53 97.9 71 26 110/73 100 Nasal Cannula 2.0 01/17/17 09:04 70 25 99 Facial 30 01/17/17 08:15 97.7 70 27 91/45 99 Bi-pap 01/17/17 07:18 99 Bi-pap 30 01/17/17 07:18 Bi-pap 30 01/17/17 07:18 70 25 99 Facial 30 01/17/17 04:58 83 26 95 Facial 30 01/17/17 04:00 97.4 83 18 121/62 93 Simple Mask 8.0 01/17/17 03:28 81 26 98 Facial 30 01/17/17 01:10 78 26 97 Facial 30 01/17/17 00:00 98.0 80 18 138/72 99 Simple Mask 8.0 01/16/17 23:39 76 44 96 Facial 30 01/16/17 20:34 Venturi Mask 8.0 40 01/16/17 20:00 98.3 77 18 140/76 99 Simple Mask 8.0 01/16/17 19:35 99 Venturi Mask 8.0 40 01/16/17 19:00 Intake and Output 01/16/17 01/17/17 19:00 07:00 Intake Total 600 ml 655.000 ml Output Total 950 ml 250 ml Balance -350 ml 405.000 ml Intake Free Water 600 ml 150 ml IV Total 385.000 ml Tube Feeding 120 ml Output Urine Total 950 ml 250 ml # Bowel Movements 7 Objective General Appearance: cachectic HEENT: normocephalic, atraumatic Respiratory/Chest: chest wall non-tender, bilateral rhonchi Cardiovascular: normal peripheral pulses, normal rate Abdomen: normal bowel sounds, soft, non tender, Gtube Genitourinary: normal external genitalia Extremities: no cyanosis Skin: no rash Lymphatic: no neck adenopathy Laboratory Tests 01/16/17 20:00: Vancomycin Level Trough 14.1H 01/17/17 06:20: White Blood Count 4.8, Red Blood Count 4.11L, Hemoglobin 9.5L, Hematocrit 31.6L , Mean Corpuscular Volume 77L, Mean Corpuscular Hemoglobin 23.2L, Mean Corpuscular Hemoglobin Concent 30.2L, Red Cell Distribution Width 22.6H, Platelet Count 156, Mean Platelet Volume 12.6H, Neutrophils (%) (Auto) 57.4, Lymphocytes (%) (Auto) 21.7, Monocytes (%) (Auto) 9.9, Eosinophils (%) (Auto) 10.6H, Basophils (%) (Auto) 0.4, Prothrombin Time 25.5H, Prothromb Time International Ratio 2.4H, Sodium Level 147H, Potassium Level 3.4, Chloride Level 109H, Carbon Dioxide Level 25, Anion Gap 13, Blood Urea Nitrogen 24H, Creatinine 0.9, Estimat Glomerular Filtration Rate > 60, Glucose Level 118H, Calcium Level 8.7 01/17/17 11:00: Urine Random Creatinine [Pending], Urine Random Microalbumin [Pending], Urine Microalbumin/Creatinine Ratio [Pending] Current Medications Medications (Trade) Dose Ordered Sig/Gloria Route PRN Reason Start Time Stop Time Status Last Admin Dose Admin Acetaminophen (Tylenol) 650 mg Q4H PRN GT fever 01/16/17 21:00 02/15/17 20:59 Al Hydroxide/Mg Hydroxide (Mylanta II) 30 ml Q6H PRN GT dyspepsia 01/16/17 22:00 02/15/17 21:59 Albuterol/ Ipratropium (DuoNeb 0.5-3(2.5)mg/3ml) 3 ml Q4H PRN HHN Shortness of Breath 01/16/17 21:00 01/21/17 20:59 Famotidine (Pepcid I.v.) 20 mg Q12HR IVP 01/17/17 21:00 02/16/17 20:59 Lorazepam (Ativan 2mg/ml 1ml) 1 mg Q6H PRN IV AGITATION 01/17/17 09:00 01/24/17 08:59 01/17/17 10:26 Midodrine (Pro-Amatine) 5 mg THREE TIMES A DAY GT 01/17/17 09:00 02/16/17 08:59 01/17/17 14:06 Nitroglycerin (Ntg) 0.4 mg Q5MIN X 3 DOSES PRN SL Prn Chest Pain 01/16/17 20:45 02/15/17 20:44 Olanzapine (ZyPREXA) 10 mg BID ORAL 01/17/17 10:00 02/16/17 09:59 01/17/17 09:37 Ondansetron HCl (Zofran) 4 mg Q6H PRN IVP Nausea & Vomiting 01/16/17 21:00 02/15/17 20:59 Piperacillin Sod/ Tazobactam Sod 3.375 gm/Sodium Chloride 110 ml @ 27.5 mls/hr Q8H IVPB 01/17/17 02:00 01/21/17 01:59 01/17/17 10:18 Polyethylene Glycol (Miralax) 17 gm DAILYPRN PRN GT Constipation 01/16/17 21:00 02/15/17 20:59 Promethazine HCl/ Codeine (Phenergan with Codeine) 5 ml Q4H PRN GT For Cough 01/16/17 21:00 02/15/17 20:59 Temazepam (Restoril) 15 mg HSPRN PRN GT Insomnia 01/16/17 21:00 01/23/17 20:59 01/17/17 00:21 Vancomycin HCl (Vanco rx to dose) 1 ea DAILY PRN MISC Per rx protocol 01/16/17 21:00 02/15/17 20:59 Vancomycin HCl/ Dextrose (Vancomycin/D5W) 275 ml @ 183.333 mls/hr Q24H IVPB 01/16/17 21:00 01/21/17 20:59 01/16/17 21:58 Warfarin Sodium (Coumadin per pharmacy) 1 ea DAILY PRN MISC Per rx protocol 01/16/17 21:00 02/15/17 20:59 ALMA LINDO January 17, 2017 17:08
--- NOTE | 2017-01-17 19:51 | General Progress Note ---
Assessment/Plan Assessment/Plan IMPRESSION: 1. Leukocytosis with a left shift. Has improved, currently is wnl 2. Anemia of chronic disease. 3. Anemia of iron deficiency. 4. Decreased hemoglobin and hematocrit, rule out gastrointestinal bleed. 5. Anemia of kidney disease. 6. Acute kidney injury. 7. Thrombocytopenia, multifactorial. 8. Acute respiratory failure. 9. Pneumonia. 10. Chronic obstructive pulmonary disease. 11. History of recent percutaneous endoscopic gastrostomy tube placement. 12. Dysphagia. 13. Acute renal failure. 14. Malnutrition. 15. Dehydration. 16. Coronary artery disease. 17. Hypertension. 18. Congestive heart failure. 19. History of deep venous thrombosis of the right lower extremity. 20. Anticoagulation with coumadin RECOMMENDATIONS: 1. Watch count. 2. Watch coagulopathy. 3. PRBC transfusion on a p.r.n. basis. 4. Coumadin and inr 2-3 5. Off lovenox now 6. Skin care. 7. Nutrition. 8. Respiratory treatment. 9. Close followup. Subjective Constitutional: Reports: no symptoms HEENT: Reports: no symptoms Cardiovascular: Reports: no symptoms Respiratory: Reports: no symptoms Gastrointestinal/Abdominal: Reports: no symptoms Genitourinary: Reports: no symptoms Neurologic/Psychiatric: Reports: no symptoms Endocrine: Reports: no symptoms Hematologic/Lymphatic: Reports: anemia Allergies: Coded Allergies: No Known Allergies (Unverified , 12/05/15) Subjective off bipap , doing better, on coumadin, lovenox is off now Objective Last 24 Hour Vital Signs Date Time Temp Pulse Resp B/P Pulse Ox O2 Delivery O2 Flow Rate FiO2 01/17/17 15:49 97.5 78 20 98/49 99 Simple Mask 10.0 01/17/17 15:02 86 20 100 01/17/17 13:27 84 20 100 01/17/17 11:53 97.9 71 26 110/73 100 Nasal Cannula 2.0 01/17/17 09:04 70 25 99 Facial 30 01/17/17 08:15 97.7 70 27 91/45 99 Bi-pap 01/17/17 07:18 99 Bi-pap 30 01/17/17 07:18 Bi-pap 30 01/17/17 07:18 70 25 99 Facial 30 01/17/17 04:58 83 26 95 Facial 30 01/17/17 04:00 97.4 83 18 121/62 93 Simple Mask 8.0 01/17/17 03:28 81 26 98 Facial 30 01/17/17 01:10 78 26 97 Facial 30 01/17/17 00:00 98.0 80 18 138/72 99 Simple Mask 8.0 01/16/17 23:39 76 44 96 Facial 30 01/16/17 20:34 Venturi Mask 8.0 40 01/16/17 20:00 98.3 77 18 140/76 99 Simple Mask 8.0 Intake and Output 01/16/17 01/17/17 19:00 07:00 Intake Total 600 ml 655.000 ml Output Total 950 ml 250 ml Balance -350 ml 405.000 ml Intake Free Water 600 ml 150 ml IV Total 385.000 ml Tube Feeding 120 ml Output Urine Total 950 ml 250 ml # Bowel Movements 7 Laboratory Tests 01/16/17 20:00: Vancomycin Level Trough 14.1H 01/17/17 06:20: White Blood Count 4.8, Red Blood Count 4.11L, Hemoglobin 9.5L, Hematocrit 31.6L , Mean Corpuscular Volume 77L, Mean Corpuscular Hemoglobin 23.2L, Mean Corpuscular Hemoglobin Concent 30.2L, Red Cell Distribution Width 22.6H, Platelet Count 156, Mean Platelet Volume 12.6H, Neutrophils (%) (Auto) 57.4, Lymphocytes (%) (Auto) 21.7, Monocytes (%) (Auto) 9.9, Eosinophils (%) (Auto) 10.6H, Basophils (%) (Auto) 0.4, Prothrombin Time 25.5H, Prothromb Time International Ratio 2.4H, Sodium Level 147H, Potassium Level 3.4, Chloride Level 109H, Carbon Dioxide Level 25, Anion Gap 13, Blood Urea Nitrogen 24H, Creatinine 0.9, Estimat Glomerular Filtration Rate > 60, Glucose Level 118H, Calcium Level 8.7 01/17/17 11:00: Urine Random Creatinine [Pending], Urine Random Microalbumin [Pending], Urine Microalbumin/Creatinine Ratio [Pending] Height (Feet): 6 Height (Inches): 0.00 Weight (Pounds): 150 General Appearance: alert EENT: TMs normal Neck: normal alignment Cardiovascular: regular rhythm Respiratory/Chest: normal breath sounds Abdomen: non tender Extremities: non-tender Edema: 1+ Leg (L), 1+ Leg (R) Neurologic: alert Skin: warm/dry Gilberto Freedman January 17, 2017 19:51
[2017-01-17 19:58] VITALS: BP 107/49
[2017-01-17] MEDS: Famotidine 20 MG/ 2ML VIAL IVP SCH (21:22)
--- NOTE | 2017-01-17 21:31 | Nephrology Progress Note ---
Assessment/Plan Assessment 1.ARF 2.ckd 3.Malnutrition 4.Hypernatremia improving 5.respiratory failure Plan plan to continue free water monitoring electrolyte replace electrolyte nutritional support Subjective ROS Limited/Unobtainable: Yes Subjective NAD Objective Objective Last 24 Hour Vital Signs Date Time Temp Pulse Resp B/P Pulse Ox O2 Delivery O2 Flow Rate FiO2 01/17/17 19:58 98.1 91 15 107/49 100 Nasal Cannula 01/17/17 15:49 97.5 78 20 98/49 99 Simple Mask 10.0 01/17/17 15:02 86 20 100 01/17/17 13:27 84 20 100 01/17/17 11:53 97.9 71 26 110/73 100 Nasal Cannula 2.0 01/17/17 09:04 70 25 99 Facial 30 01/17/17 08:15 97.7 70 27 91/45 99 Bi-pap 01/17/17 07:18 99 Bi-pap 30 01/17/17 07:18 Bi-pap 30 01/17/17 07:18 70 25 99 Facial 30 01/17/17 04:58 83 26 95 Facial 30 01/17/17 04:00 97.4 83 18 121/62 93 Simple Mask 8.0 01/17/17 03:28 81 26 98 Facial 30 01/17/17 01:10 78 26 97 Facial 30 01/17/17 00:00 98.0 80 18 138/72 99 Simple Mask 8.0 01/16/17 23:39 76 44 96 Facial 30 Intake and Output 01/16/17 01/17/17 19:00 07:00 Intake Total 600 ml 675.000 ml Output Total 950 ml 250 ml Balance -350 ml 425.000 ml Intake Free Water 600 ml 150 ml IV Total 385.000 ml Tube Feeding 140 ml Output Urine Total 950 ml 250 ml # Bowel Movements 7 Laboratory Tests 01/17/17 06:20: White Blood Count 4.8, Red Blood Count 4.11L, Hemoglobin 9.5L, Hematocrit 31.6L , Mean Corpuscular Volume 77L, Mean Corpuscular Hemoglobin 23.2L, Mean Corpuscular Hemoglobin Concent 30.2L, Red Cell Distribution Width 22.6H, Platelet Count 156, Mean Platelet Volume 12.6H, Neutrophils (%) (Auto) 57.4, Lymphocytes (%) (Auto) 21.7, Monocytes (%) (Auto) 9.9, Eosinophils (%) (Auto) 10.6H, Basophils (%) (Auto) 0.4, Prothrombin Time 25.5H, Prothromb Time International Ratio 2.4H, Sodium Level 147H, Potassium Level 3.4, Chloride Level 109H, Carbon Dioxide Level 25, Anion Gap 13, Blood Urea Nitrogen 24H, Creatinine 0.9, Estimat Glomerular Filtration Rate > 60, Glucose Level 118H, Calcium Level 8.7 01/17/17 11:00: Urine Random Creatinine [Pending], Urine Random Microalbumin [Pending], Urine Microalbumin/Creatinine Ratio [Pending] Height (Feet): 6 Height (Inches): 0.00 Weight (Pounds): 150 Objective HEAD AND NECK: extraocular movement intact. Pupils reactive to light and accommodation. Dry mucous membranes. LUNGS: Decreased breath sounds on both sides. CARDIAC: Regular rate and rhythm. S1 and S2. No murmur. No rub. ABDOMEN: Soft and nontender. EXTREMITIES: No edema. No clubbing. No cyanosis. contracture on both sides. BARTOLOME OVALLES January 17, 2017 21:31
[2017-01-17] MEDS: Vancomycin 1.25 GM in D5W 275 ML IVPB SCH (21:37)
[2017-01-18] VITALS: BP 103/52
[2017-01-18] MEDS: Piperacillin/Tazobactam 3.375 GM in NS 110 ML IVPB SCH ×3 (01:43→18:46)
[2017-01-18 04:00] VITALS: BP 93/61
[2017-01-18 06:28] LABS: BASOPHILS % (AUTO) 0.7 % (0.0-2.0); LYMPHOCYTES % (AUTO) 17.3 % (20.0-45.0); MEAN CORPUSCULAR HEMOGLOBIN 23.4 PG (27.0-31.0); MEAN CORPUSCULAR HGB CONC 29.8 G/DL (32.0-36.0); MEAN CORPUSCULAR VOLUME 78 FL (80-99); MEAN PLATELET VOLUME 11.1 FL (6.5-10.1); MONOCYTES % (AUTO) 7.3 % (1.0-10.0); NEUTROPHILS % (AUTO) 68.7 % (45.0-75.0); PLATELET COUNT 142 K/UL (150-450); RED BLOOD COUNT 4.06 M/UL (4.70-6.10); RED CELL DISTRIBUTION WIDTH 23.2 % (11.6-14.8); WHITE BLOOD COUNT 6.2 K/UL (4.8-10.8)
[2017-01-18 06:40] LABS: INR 2.1 (0.9-1.1); PROTHROMBIN TIME 22.1 SEC (9.30-11.50)
[2017-01-18 06:44] LABS: ANION GAP 9 (5-15); CALCIUM 8.4 mg/dL (8.6-10.2); CARBON DIOXIDE 27 mEQ/L (20-30); CHLORIDE 113 mEQ/L (98-107); GLOMERULAR FILTRATION RATE > 60 mL/min (>60); POTASSIUM 3.7 mEQ/L (3.4-4.9); SODIUM 149 mEQ/L (135-145)
[2017-01-18 07:21] LABS: HEMOLYSIS 2; IRON 27 ug/dL (59-158)
[2017-01-18 08:02] LABS: TOTAL IRON BINDING CAPACITY 227 ug/dL (250-400)
[2017-01-18 08:15] VITALS: BP 114/69
[2017-01-18] MEDS: Famotidine 20 MG/ 2ML VIAL IVP SCH (09:43)
--- NOTE | 2017-01-18 10:05 | GI Progress Note ---
Assessment/Plan Problems: (1) Schizophrenia ICD Codes: F20.9 - Schizophrenia, unspecified SNOMED: 90649597 (2) Anemia ICD Codes: D64.9 - Anemia, unspecified SNOMED: 564536266 (3) Feeding by G-tube ICD Codes: Z93.1 - Gastrostomy status SNOMED: 775759286, 477237470 (4) Dysphagia ICD Codes: R13.10 - Dysphagia, unspecified SNOMED: 47220920, 324117699 (5) Acid reflux ICD Codes: K21.9 - Gastro-esophageal reflux disease without esophagitis SNOMED: 836262116 Status: unchanged Status Narrative Discussed with Dr. Dinh. Assessment/Plan iron deficiency >> venofer x 1 stable H&H despite occult blood positive >> fu addition OB stool monitor H&H, transfuse prn GTFs per dietary, tolerating GT care and flush H2B fu labs pt on coumadin (must be stopped x 48 hours prior to any endoscopic procedure.) The patient was seen and examined at bedside and all new and available data was reviewed in the patients chart. I agree with the above findings, impression and plan. (Patient seen earlier today. Signature stamp does not reflect patient encounter time.). -Jesús Dinh MD Subjective Subjective limited Objective Last 24 Hour Vital Signs Date Time Temp Pulse Resp B/P Pulse Ox O2 Delivery O2 Flow Rate FiO2 01/18/17 08:15 97.7 89 21 114/69 100 Venturi Mask 35 01/18/17 06:26 98 Venturi Mask 6.0 35 01/18/17 06:26 Venturi Mask 6.0 35 01/18/17 06:26 78 18 Simple Mask 6.0 35 01/18/17 04:00 97.7 76 18 93/61 98 Simple Mask 01/18/17 00:00 98.2 59 18 103/52 100 Simple Mask 01/17/17 19:58 98.1 91 15 107/49 100 Nasal Cannula 01/17/17 19:00 99 Venturi Mask 6.0 35 01/17/17 19:00 Venturi Mask 6.0 35 01/17/17 15:49 97.5 78 20 98/49 99 Simple Mask 10.0 01/17/17 15:02 86 20 100 01/17/17 13:27 84 20 100 01/17/17 11:53 97.9 71 26 110/73 100 Nasal Cannula 2.0 Intake and Output 01/17/17 01/18/17 19:00 07:00 Intake Total 1010.0 ml 1491.666 ml Output Total 450 ml 850 ml Balance 560.0 ml 641.666 ml Intake Free Water 300 ml 300 ml IV Total 110.0 ml 586.666 ml Tube Feeding 600 ml 605 ml Output Urine Total 450 ml 850 ml # Bowel Movements 1 Laboratory Tests Test 01/17/17 11:00 01/18/17 05:50 Urine Random Creatinine Pending Urine Random Microalbumin Pending Urine Microalbumin/Creatinine Ratio Pending White Blood Count 6.2 K/UL (4.8-10.8) Red Blood Count 4.06 M/UL (4.70-6.10) L Hemoglobin 9.5 G/DL (14.2-18.0) L Hematocrit 31.8 % (42.0-52.0) L Mean Corpuscular Volume 78 FL (80-99) L Mean Corpuscular Hemoglobin 23.4 PG (27.0-31.0) L Mean Corpuscular Hemoglobin Concent 29.8 G/DL (32.0-36.0) L Red Cell Distribution Width 23.2 % (11.6-14.8) H Platelet Count 142 K/UL (150-450) L Mean Platelet Volume 11.1 FL (6.5-10.1) H Neutrophils (%) (Auto) 68.7 % (45.0-75.0) Lymphocytes (%) (Auto) 17.3 % (20.0-45.0) L Monocytes (%) (Auto) 7.3 % (1.0-10.0) Eosinophils (%) (Auto) 6.0 % (0.0-3.0) H Basophils (%) (Auto) 0.7 % (0.0-2.0) Prothrombin Time 22.1 SEC (9.30-11.50) H Prothromb Time International Ratio 2.1 (0.9-1.1) H Sodium Level 149 mEQ/L (135-145) H Potassium Level 3.7 mEQ/L (3.4-4.9) Chloride Level 113 mEQ/L (98-107) H Carbon Dioxide Level 27 mEQ/L (20-30) Anion Gap 9 (5-15) Blood Urea Nitrogen 17 mg/dL (7-23) Creatinine 1.0 mg/dL (0.7-1.2) Estimat Glomerular Filtration Rate > 60 mL/min (>60) Glucose Level 138 mg/dL (74-106) H Calcium Level 8.4 mg/dL (8.6-10.2) L Iron Level 27 ug/dL (59-158) L Total Iron Binding Capacity 227 ug/dL (250-400) L Percent Iron Saturation 12 % (15-50) L Unsaturated Iron Binding 200 ug/dL (112-346) Height (Feet): 6 Height (Inches): 0.00 Weight (Pounds): 150 General Appearance: no apparent distress, alert Cardiovascular: normal rate Respiratory/Chest: normal breath sounds, no respiratory distress Abdominal Exam: soft, GT site - c/d/i Beth Carver N.P. January 18, 2017 10:05 JESÚS DINH January 19, 2017 12:36
[2017-01-18 11:32] VITALS: BP 107/56
--- NOTE | 2017-01-18 14:08 | Nephrology Progress Note ---
Assessment/Plan Assessment 1.ARF 2.ckd 3.Malnutrition 4.Hypernatremia improving 5.respiratory failure Plan plan to continue free water monitoring electrolyte replace electrolyte nutritional support Subjective Subjective NAD Objective Objective Last 24 Hour Vital Signs Date Time Temp Pulse Resp B/P Pulse Ox O2 Delivery O2 Flow Rate FiO2 01/18/17 11:32 98.0 92 21 107/56 96 Nasal Cannula 2.0 01/18/17 10:30 18 99 Nasal Cannula 2.0 01/18/17 08:15 97.7 89 21 114/69 100 Venturi Mask 35 01/18/17 06:26 98 Venturi Mask 6.0 35 01/18/17 06:26 Venturi Mask 6.0 35 01/18/17 06:26 78 18 Simple Mask 6.0 35 01/18/17 04:00 97.7 76 18 93/61 98 Simple Mask 01/18/17 00:00 98.2 59 18 103/52 100 Simple Mask 01/17/17 19:58 98.1 91 15 107/49 100 Nasal Cannula 01/17/17 19:00 99 Venturi Mask 6.0 35 01/17/17 19:00 Venturi Mask 6.0 35 01/17/17 15:49 97.5 78 20 98/49 99 Simple Mask 10.0 01/17/17 15:02 86 20 100 Intake and Output 01/17/17 01/18/17 19:00 07:00 Intake Total 1010.0 ml 1491.666 ml Output Total 450 ml 850 ml Balance 560.0 ml 641.666 ml Intake Free Water 300 ml 300 ml IV Total 110.0 ml 586.666 ml Tube Feeding 600 ml 605 ml Output Urine Total 450 ml 850 ml # Bowel Movements 1 Laboratory Tests 01/18/17 05:50: White Blood Count 6.2, Red Blood Count 4.06L, Hemoglobin 9.5L, Hematocrit 31.8L , Mean Corpuscular Volume 78L, Mean Corpuscular Hemoglobin 23.4L, Mean Corpuscular Hemoglobin Concent 29.8L, Red Cell Distribution Width 23.2H, Platelet Count 142L, Mean Platelet Volume 11.1H, Neutrophils (%) (Auto) 68.7, Lymphocytes (%) (Auto) 17.3L, Monocytes (%) (Auto) 7.3, Eosinophils (%) (Auto) 6.0H, Basophils (%) (Auto) 0.7, Prothrombin Time 22.1H, Prothromb Time International Ratio 2.1H, Sodium Level 149H, Potassium Level 3.7, Chloride Level 113H, Carbon Dioxide Level 27, Anion Gap 9, Blood Urea Nitrogen 17, Creatinine 1.0, Estimat Glomerular Filtration Rate > 60, Glucose Level 138H, Calcium Level 8.4L, Iron Level 27L, Total Iron Binding Capacity 227L, Percent Iron Saturation 12L, Unsaturated Iron Binding 200 Height (Feet): 6 Height (Inches): 0.00 Weight (Pounds): 150 Objective HEAD AND NECK: extraocular movement intact. Pupils reactive to light and accommodation. Dry mucous membranes. LUNGS: Decreased breath sounds on both sides. CARDIAC: Regular rate and rhythm. S1 and S2. No murmur. No rub. ABDOMEN: Soft and nontender. EXTREMITIES: No edema. No clubbing. No cyanosis. contracture on both sides. BARTOLOME OVALLES January 18, 2017 14:08
[2017-01-18 14:18] LABS: CREATININE RANDOM URINE 88.8 mg/dL (Not Estab.); MICROALBUMIN/CREATININE RATIO 7.1 mg/g creat (0.0-30.0)
--- NOTE | 2017-01-18 14:35 | General Progress Note ---
Assessment/Plan Problem List: (1) CHF (congestive heart failure) ICD Codes: I50.9 - Heart failure, unspecified SNOMED: 14191995 (2) Schizophrenia ICD Codes: F20.9 - Schizophrenia, unspecified SNOMED: 31152169 (3) Anemia ICD Codes: D64.9 - Anemia, unspecified SNOMED: 481146897 (4) Encephalopathy ICD Codes: G93.40 - Encephalopathy, unspecified SNOMED: 65174125, 934929963 (5) UTI (urinary tract infection) ICD Codes: N39.0 - Urinary tract infection, site not specified SNOMED: 29449674 (6) Pneumonia ICD Codes: J18.9 - Pneumonia, unspecified organism SNOMED: 584232283 (7) COPD (chronic obstructive pulmonary disease) ICD Codes: J44.9 - Chronic obstructive pulmonary disease, unspecified SNOMED: 38253186 (8) Acute respiratory failure ICD Codes: J96.00 - Acute respiratory failure, unspecified whether with hypoxia or hypercapnia SNOMED: 91544381 (9) Elevated troponin ICD Codes: R74.8 - Abnormal levels of other serum enzymes SNOMED: 593976822, 292810116 Status: stable, progressing, tolerating diet Assessment/Plan bipap abx cbc bmp am cardio neph f/u dc plan Subjective Constitutional: Reports: weakness Allergies: Coded Allergies: No Known Allergies (Unverified , 12/05/15) All Systems: reviewed and negative except above Subjective o2 mask confused Objective Last 24 Hour Vital Signs Date Time Temp Pulse Resp B/P Pulse Ox O2 Delivery O2 Flow Rate FiO2 01/18/17 11:32 98.0 92 21 107/56 96 Nasal Cannula 2.0 01/18/17 10:30 18 99 Nasal Cannula 2.0 01/18/17 08:15 97.7 89 21 114/69 100 Venturi Mask 35 01/18/17 06:26 98 Venturi Mask 6.0 35 01/18/17 06:26 Venturi Mask 6.0 35 01/18/17 06:26 78 18 Simple Mask 6.0 35 01/18/17 04:00 97.7 76 18 93/61 98 Simple Mask 01/18/17 00:00 98.2 59 18 103/52 100 Simple Mask 01/17/17 19:58 98.1 91 15 107/49 100 Nasal Cannula 01/17/17 19:00 99 Venturi Mask 6.0 35 01/17/17 19:00 Venturi Mask 6.0 35 01/17/17 15:49 97.5 78 20 98/49 99 Simple Mask 10.0 01/17/17 15:02 86 20 100 Intake and Output 01/17/17 01/18/17 19:00 07:00 Intake Total 1010.0 ml 1491.666 ml Output Total 450 ml 850 ml Balance 560.0 ml 641.666 ml Intake Free Water 300 ml 300 ml IV Total 110.0 ml 586.666 ml Tube Feeding 600 ml 605 ml Output Urine Total 450 ml 850 ml # Bowel Movements 1 Laboratory Tests 01/18/17 05:50: White Blood Count 6.2, Red Blood Count 4.06L, Hemoglobin 9.5L, Hematocrit 31.8L , Mean Corpuscular Volume 78L, Mean Corpuscular Hemoglobin 23.4L, Mean Corpuscular Hemoglobin Concent 29.8L, Red Cell Distribution Width 23.2H, Platelet Count 142L, Mean Platelet Volume 11.1H, Neutrophils (%) (Auto) 68.7, Lymphocytes (%) (Auto) 17.3L, Monocytes (%) (Auto) 7.3, Eosinophils (%) (Auto) 6.0H, Basophils (%) (Auto) 0.7, Prothrombin Time 22.1H, Prothromb Time International Ratio 2.1H, Sodium Level 149H, Potassium Level 3.7, Chloride Level 113H, Carbon Dioxide Level 27, Anion Gap 9, Blood Urea Nitrogen 17, Creatinine 1.0, Estimat Glomerular Filtration Rate > 60, Glucose Level 138H, Calcium Level 8.4L, Iron Level 27L, Total Iron Binding Capacity 227L, Percent Iron Saturation 12L, Unsaturated Iron Binding 200 Height (Feet): 6 Height (Inches): 0.00 Weight (Pounds): 150 General Appearance: lethargic, confused EENT: normal ENT inspection Neck: normal alignment Cardiovascular: normal peripheral pulses, normal rate, regular rhythm Respiratory/Chest: chest wall non-tender, lungs clear, decreased breath sounds Abdomen: normal bowel sounds, non tender, soft Extremities: normal inspection Edema: no edema noted Arm (L), no edema noted Arm (R), no edema noted Leg (L), no edema noted Leg (R), no edema noted Pedal (L), no edema noted Pedal (R), no edema noted Generalized Neurologic: motor weakness Skin: normal pigmentation, warm/dry ALONDRA SINGH January 18, 2017 14:35
[2017-01-18] MEDS ORDERED: Tubing IV Secondary IV ONE (15:26)
[2017-01-18] MEDS ORDERED: NS 275ml ONE ×2 (15:26→20:49)
--- NOTE | 2017-01-18 15:45 | Infectious Diseases Prog Note ---
Assessment/Plan Problems: (1) Severe sepsis with septic shock Assessment & Plan: improving with vancomycin and zosyn, blood culture grew gram positive cocci from one bottle , most likely contaminant , continue wide spectrum antibiotics to cover for pneumonia for 10 days total . EOT 01/22/17 (2) HCAP (healthcare-associated pneumonia) Assessment & Plan: sputum culture was not performed , will continue zosyn with vancomycin renally dosed by pharmacist, empiric treatment for 10 days (3) MAR (acute kidney injury) Assessment & Plan: due to sepsis , recommend hydration, monitor UOP, consult renal (4) Acute respiratory failure Assessment & Plan: due to the above, on high flow via venturi mask, monitor ABG , further management as per assessment rn Subjective ROS Limited/Unobtainable: Yes Allergies: Coded Allergies: No Known Allergies (Unverified , 12/05/15) Subjective he was up in bed, breathing ok on room air, with no tachypnea or distress, no fever or chills Objective Vital Signs Last 24 Hour Vital Signs Date Time Temp Pulse Resp B/P Pulse Ox O2 Delivery O2 Flow Rate FiO2 01/18/17 11:32 98.0 92 21 107/56 96 Nasal Cannula 2.0 01/18/17 10:30 18 99 Nasal Cannula 2.0 01/18/17 08:15 97.7 89 21 114/69 100 Venturi Mask 35 01/18/17 06:26 98 Venturi Mask 6.0 35 01/18/17 06:26 Venturi Mask 6.0 35 01/18/17 06:26 78 18 Simple Mask 6.0 35 01/18/17 04:00 97.7 76 18 93/61 98 Simple Mask 01/18/17 00:00 98.2 59 18 103/52 100 Simple Mask 01/17/17 19:58 98.1 91 15 107/49 100 Nasal Cannula 01/17/17 19:00 99 Venturi Mask 6.0 35 01/17/17 19:00 Venturi Mask 6.0 35 01/17/17 15:49 97.5 78 20 98/49 99 Simple Mask 10.0 Height (Feet): 6 Height (Inches): 0.00 Weight (Pounds): 150 General Appearance: WD/WN, no acute distress HEENT: normocephalic, atraumatic, anicteric, mucous membranes moist Respiratory/Chest: chest wall non-tender, lungs clear, normal breath sounds, no respiratory distress, no accessory muscle use Cardiovascular: normal peripheral pulses, normal rate, regular rhythm, no gallop/murmur, no JVD Abdomen: normal bowel sounds, soft, non tender, no organomegaly, non distended , no mass Extremities: no cyanosis, no clubbing Skin: no rash, no lesions Laboratory Tests Test 01/18/17 05:50 White Blood Count 6.2 K/UL (4.8-10.8) Red Blood Count 4.06 M/UL (4.70-6.10) L Hemoglobin 9.5 G/DL (14.2-18.0) L Hematocrit 31.8 % (42.0-52.0) L Mean Corpuscular Volume 78 FL (80-99) L Mean Corpuscular Hemoglobin 23.4 PG (27.0-31.0) L Mean Corpuscular Hemoglobin Concent 29.8 G/DL (32.0-36.0) L Red Cell Distribution Width 23.2 % (11.6-14.8) H Platelet Count 142 K/UL (150-450) L Mean Platelet Volume 11.1 FL (6.5-10.1) H Neutrophils (%) (Auto) 68.7 % (45.0-75.0) Lymphocytes (%) (Auto) 17.3 % (20.0-45.0) L Monocytes (%) (Auto) 7.3 % (1.0-10.0) Eosinophils (%) (Auto) 6.0 % (0.0-3.0) H Basophils (%) (Auto) 0.7 % (0.0-2.0) Prothrombin Time 22.1 SEC (9.30-11.50) H Prothromb Time International Ratio 2.1 (0.9-1.1) H Sodium Level 149 mEQ/L (135-145) H Potassium Level 3.7 mEQ/L (3.4-4.9) Chloride Level 113 mEQ/L (98-107) H Carbon Dioxide Level 27 mEQ/L (20-30) Anion Gap 9 (5-15) Blood Urea Nitrogen 17 mg/dL (7-23) Creatinine 1.0 mg/dL (0.7-1.2) Estimat Glomerular Filtration Rate > 60 mL/min (>60) Glucose Level 138 mg/dL (74-106) H Calcium Level 8.4 mg/dL (8.6-10.2) L Iron Level 27 ug/dL (59-158) L Total Iron Binding Capacity 227 ug/dL (250-400) L Percent Iron Saturation 12 % (15-50) L Unsaturated Iron Binding 200 ug/dL (112-346) Current Medications Medications (Trade) Dose Ordered Sig/Gloria Route PRN Reason Start Time Stop Time Status Last Admin Dose Admin Acetaminophen (Tylenol) 650 mg Q4H PRN GT fever 01/16/17 21:00 02/15/17 20:59 Al Hydroxide/Mg Hydroxide (Mylanta II) 30 ml Q6H PRN GT dyspepsia 01/16/17 22:00 02/15/17 21:59 Albuterol/ Ipratropium (DuoNeb 0.5-3(2.5)mg/3ml) 3 ml Q4H PRN HHN Shortness of Breath 01/16/17 21:00 01/21/17 20:59 Famotidine 20 mg 20 mg Q12HR IVP 01/17/17 21:00 02/16/17 20:59 01/18/17 09:43 Iron Sucrose/ Sodium Chloride (Venofer/Sodium Chloride) 60 ml @ 240 mls/hr ONCE ONCE IVPB 01/18/17 21:00 01/18/17 21:14 Lorazepam (Ativan 2mg/ml 1ml) 1 mg Q6H PRN IV AGITATION 01/17/17 09:00 01/24/17 08:59 01/17/17 10:26 Midodrine (Pro-Amatine) 5 mg THREE TIMES A DAY GT 01/17/17 09:00 02/16/17 08:59 01/18/17 13:15 Nitroglycerin (Ntg) 0.4 mg Q5MIN X 3 DOSES PRN SL Prn Chest Pain 01/16/17 20:45 02/15/17 20:44 Olanzapine (ZyPREXA) 10 mg BID ORAL 01/17/17 10:00 02/16/17 09:59 01/18/17 09:43 Ondansetron HCl (Zofran) 4 mg Q6H PRN IVP Nausea & Vomiting 01/16/17 21:00 02/15/17 20:59 Piperacillin Sod/ Tazobactam Sod 3.375 gm/Sodium Chloride 110 ml @ 27.5 mls/hr Q8H IVPB 01/17/17 02:00 01/21/17 01:59 01/18/17 09:43 Polyethylene Glycol (Miralax) 17 gm DAILYPRN PRN GT Constipation 01/16/17 21:00 02/15/17 20:59 Promethazine HCl/ Codeine (Phenergan with Codeine) 5 ml Q4H PRN GT For Cough 01/16/17 21:00 02/15/17 20:59 Temazepam (Restoril) 15 mg HSPRN PRN GT Insomnia 01/16/17 21:00 01/23/17 20:59 01/17/17 00:21 Vancomycin HCl (Vanco rx to dose) 1 ea DAILY PRN MISC Per rx protocol 01/16/17 21:00 02/15/17 20:59 Vancomycin HCl/ Dextrose (Vancomycin/D5W) 275 ml @ 183.333 mls/hr Q24H IVPB 01/16/17 21:00 01/21/17 20:59 01/17/17 21:37 Warfarin Sodium (Coumadin per pharmacy) 1 ea DAILY PRN MISC Per rx protocol 01/16/17 21:00 02/15/17 20:59 Warfarin Sodium (Coumadin) 3 mg COUMADIN ONCE ORAL 01/18/17 17:00 01/18/17 17:01 Frankie Ratliff M.D. January 18, 2017 15:45
--- NOTE | 2017-01-18 15:53 | Pulmonology Progress Note ---
Assessment/Plan Problems: (1) Severe sepsis with septic shock (2) Acute respiratory failure (3) COPD (chronic obstructive pulmonary disease) (4) Alzheimer's dementia (5) Cachexia (6) Feeding by G-tube Assessment/Plan titrate fo2 bun/creatine improving f/u pulse oximeter continue antibiotics check cultures dvt prophylaxis tolerating diet ok to dc consider changing the code status to DNR Subjective ROS Limited/Unobtainable: No Constitutional: Reports: no symptoms HEENT: Repors: no symptoms Respiratory: Reports: no symptoms Allergies: Coded Allergies: No Known Allergies (Unverified , 12/05/15) Objective Last 24 Hour Vital Signs Date Time Temp Pulse Resp B/P Pulse Ox O2 Delivery O2 Flow Rate FiO2 01/18/17 11:32 98.0 92 21 107/56 96 Nasal Cannula 2.0 01/18/17 10:30 18 99 Nasal Cannula 2.0 01/18/17 08:15 97.7 89 21 114/69 100 Venturi Mask 35 01/18/17 06:26 98 Venturi Mask 6.0 35 01/18/17 06:26 Venturi Mask 6.0 35 01/18/17 06:26 78 18 Simple Mask 6.0 35 01/18/17 04:00 97.7 76 18 93/61 98 Simple Mask 01/18/17 00:00 98.2 59 18 103/52 100 Simple Mask 01/17/17 19:58 98.1 91 15 107/49 100 Nasal Cannula 01/17/17 19:00 99 Venturi Mask 6.0 35 01/17/17 19:00 Venturi Mask 6.0 35 Intake and Output 01/17/17 01/18/17 19:00 07:00 Intake Total 1010.0 ml 1491.666 ml Output Total 450 ml 850 ml Balance 560.0 ml 641.666 ml Intake Free Water 300 ml 300 ml IV Total 110.0 ml 586.666 ml Tube Feeding 600 ml 605 ml Output Urine Total 450 ml 850 ml # Bowel Movements 1 Objective General Appearance: cachectic HEENT: normocephalic, atraumatic Respiratory/Chest: chest wall non-tender, bilateral rhonchi Cardiovascular: normal peripheral pulses, normal rate Abdomen: normal bowel sounds, soft, non tender, Gtube Genitourinary: normal external genitalia Extremities: no cyanosis Skin: no rash Lymphatic: no neck adenopathy Laboratory Tests 01/18/17 05:50: White Blood Count 6.2, Red Blood Count 4.06L, Hemoglobin 9.5L, Hematocrit 31.8L , Mean Corpuscular Volume 78L, Mean Corpuscular Hemoglobin 23.4L, Mean Corpuscular Hemoglobin Concent 29.8L, Red Cell Distribution Width 23.2H, Platelet Count 142L, Mean Platelet Volume 11.1H, Neutrophils (%) (Auto) 68.7, Lymphocytes (%) (Auto) 17.3L, Monocytes (%) (Auto) 7.3, Eosinophils (%) (Auto) 6.0H, Basophils (%) (Auto) 0.7, Prothrombin Time 22.1H, Prothromb Time International Ratio 2.1H, Sodium Level 149H, Potassium Level 3.7, Chloride Level 113H, Carbon Dioxide Level 27, Anion Gap 9, Blood Urea Nitrogen 17, Creatinine 1.0, Estimat Glomerular Filtration Rate > 60, Glucose Level 138H, Calcium Level 8.4L, Iron Level 27L, Total Iron Binding Capacity 227L, Percent Iron Saturation 12L, Unsaturated Iron Binding 200 Current Medications Medications (Trade) Dose Ordered Sig/Gloria Route PRN Reason Start Time Stop Time Status Last Admin Dose Admin Acetaminophen (Tylenol) 650 mg Q4H PRN GT fever 01/16/17 21:00 02/15/17 20:59 Al Hydroxide/Mg Hydroxide (Mylanta II) 30 ml Q6H PRN GT dyspepsia 01/16/17 22:00 02/15/17 21:59 Albuterol/ Ipratropium (DuoNeb 0.5-3(2.5)mg/3ml) 3 ml Q4H PRN HHN Shortness of Breath 01/16/17 21:00 01/21/17 20:59 Famotidine 20 mg 20 mg Q12HR IVP 01/17/17 21:00 02/16/17 20:59 01/18/17 09:43 Iron Sucrose/ Sodium Chloride (Venofer/Sodium Chloride) 60 ml @ 240 mls/hr ONCE ONCE IVPB 01/18/17 21:00 01/18/17 21:14 Lorazepam (Ativan 2mg/ml 1ml) 1 mg Q6H PRN IV AGITATION 01/17/17 09:00 01/24/17 08:59 01/17/17 10:26 Midodrine (Pro-Amatine) 5 mg THREE TIMES A DAY GT 01/17/17 09:00 02/16/17 08:59 01/18/17 13:15 Nitroglycerin (Ntg) 0.4 mg Q5MIN X 3 DOSES PRN SL Prn Chest Pain 01/16/17 20:45 02/15/17 20:44 Olanzapine (ZyPREXA) 10 mg BID ORAL 01/17/17 10:00 02/16/17 09:59 01/18/17 09:43 Ondansetron HCl (Zofran) 4 mg Q6H PRN IVP Nausea & Vomiting 01/16/17 21:00 02/15/17 20:59 Piperacillin Sod/ Tazobactam Sod 3.375 gm/Sodium Chloride 110 ml @ 27.5 mls/hr Q8H IVPB 01/17/17 02:00 01/21/17 01:59 01/18/17 09:43 Polyethylene Glycol (Miralax) 17 gm DAILYPRN PRN GT Constipation 01/16/17 21:00 02/15/17 20:59 Promethazine HCl/ Codeine (Phenergan with Codeine) 5 ml Q4H PRN GT For Cough 01/16/17 21:00 02/15/17 20:59 Temazepam (Restoril) 15 mg HSPRN PRN GT Insomnia 01/16/17 21:00 01/23/17 20:59 01/17/17 00:21 Vancomycin HCl (Vanco rx to dose) 1 ea DAILY PRN MISC Per rx protocol 01/16/17 21:00 02/15/17 20:59 Vancomycin HCl/ Dextrose (Vancomycin/D5W) 275 ml @ 183.333 mls/hr Q24H IVPB 01/16/17 21:00 01/21/17 20:59 01/17/17 21:37 Warfarin Sodium (Coumadin per pharmacy) 1 ea DAILY PRN MISC Per rx protocol 01/16/17 21:00 02/15/17 20:59 Warfarin Sodium (Coumadin) 3 mg COUMADIN ONCE ORAL 01/18/17 17:00 01/18/17 17:01 ALMA LINDO January 18, 2017 15:53
--- NOTE | 2017-01-18 16:01 | General Progress Note ---
Assessment/Plan Assessment/Plan IMPRESSION: #. Leukocytosis with a left shift. Patient's wbc is currently is wnl #. Anemia of chronic disease. #. Anemia of iron deficiency. On iv iron #. Anemia of kidney disease. #. Acute kidney injury. #. Thrombocytopenia, multifactorial. #. Acute respiratory failure. #. Pneumonia. #. Chronic obstructive pulmonary disease. #. History of recent percutaneous endoscopic gastrostomy tube placement. #. Dysphagia. #. History of deep venous thrombosis of the right lower extremity. Anticoagulation with coumadin RECOMMENDATIONS: 1. Watch count. 2. Watch coagulopathy. 3. PRBC transfusion on a p.r.n. basis. 4. Coumadin and inr 2-3 5. On iv iron 6. Skin care. 7. Nutrition. 8. Appreciate GI and Pulm/CC recs 9. Close followup. Subjective Constitutional: Reports: no symptoms HEENT: Reports: no symptoms Cardiovascular: Reports: no symptoms Respiratory: Reports: no symptoms Gastrointestinal/Abdominal: Reports: no symptoms Genitourinary: Reports: no symptoms Neurologic/Psychiatric: Reports: no symptoms Hematologic/Lymphatic: Reports: anemia Allergies: Coded Allergies: No Known Allergies (Unverified , 12/05/15) Subjective off bipap , doing better, on coumadin, inr therapeutic Objective Last 24 Hour Vital Signs Date Time Temp Pulse Resp B/P Pulse Ox O2 Delivery O2 Flow Rate FiO2 01/18/17 11:32 98.0 92 21 107/56 96 Nasal Cannula 2.0 01/18/17 10:30 18 99 Nasal Cannula 2.0 01/18/17 08:15 97.7 89 21 114/69 100 Venturi Mask 35 01/18/17 06:26 98 Venturi Mask 6.0 35 01/18/17 06:26 Venturi Mask 6.0 35 01/18/17 06:26 78 18 Simple Mask 6.0 35 01/18/17 04:00 97.7 76 18 93/61 98 Simple Mask 01/18/17 00:00 98.2 59 18 103/52 100 Simple Mask 01/17/17 19:58 98.1 91 15 107/49 100 Nasal Cannula 01/17/17 19:00 99 Venturi Mask 6.0 35 01/17/17 19:00 Venturi Mask 6.0 35 Intake and Output 01/17/17 01/18/17 19:00 07:00 Intake Total 1010.0 ml 1491.666 ml Output Total 450 ml 850 ml Balance 560.0 ml 641.666 ml Intake Free Water 300 ml 300 ml IV Total 110.0 ml 586.666 ml Tube Feeding 600 ml 605 ml Output Urine Total 450 ml 850 ml # Bowel Movements 1 Laboratory Tests 01/18/17 05:50: White Blood Count 6.2, Red Blood Count 4.06L, Hemoglobin 9.5L, Hematocrit 31.8L , Mean Corpuscular Volume 78L, Mean Corpuscular Hemoglobin 23.4L, Mean Corpuscular Hemoglobin Concent 29.8L, Red Cell Distribution Width 23.2H, Platelet Count 142L, Mean Platelet Volume 11.1H, Neutrophils (%) (Auto) 68.7, Lymphocytes (%) (Auto) 17.3L, Monocytes (%) (Auto) 7.3, Eosinophils (%) (Auto) 6.0H, Basophils (%) (Auto) 0.7, Prothrombin Time 22.1H, Prothromb Time International Ratio 2.1H, Sodium Level 149H, Potassium Level 3.7, Chloride Level 113H, Carbon Dioxide Level 27, Anion Gap 9, Blood Urea Nitrogen 17, Creatinine 1.0, Estimat Glomerular Filtration Rate > 60, Glucose Level 138H, Calcium Level 8.4L, Iron Level 27L, Total Iron Binding Capacity 227L, Percent Iron Saturation 12L, Unsaturated Iron Binding 200 Height (Feet): 6 Height (Inches): 0.00 Weight (Pounds): 150 General Appearance: no apparent distress EENT: TMs normal Neck: supple Cardiovascular: normal rate Respiratory/Chest: normal breath sounds Abdomen: non tender Extremities: normal inspection Edema: 1+ Leg (L), 1+ Leg (R) Edema: mild edema Neurologic: no motor/sensory deficits, alert Skin: warm/dry Gilberto Freedman January 18, 2017 16:01
[2017-01-18 16:02] VITALS: BP 107/59
[2017-01-18] MEDS ORDERED: Warfarin Sodium 3mg ORAL ONE (17:00)
[2017-01-18] MEDS ORDERED: PEPCID20 MG ORAL (19:43)
[2017-01-18] MEDS ORDERED: DUONEB 0.5-3(2.53 ML HHN (19:44)
[2017-01-18] MEDS ORDERED: ATIVAN1 MG ORAL (19:44)
[2017-01-18] MEDS ORDERED: ZYPREXA10 MG GT (19:45)
[2017-01-18] MEDS ORDERED: ZOSYN 3.373.375 GM/1 IVPB (19:47)
[2017-01-18] MEDS ORDERED: MIRALAX17 G2 GT (19:48)
[2017-01-18] MEDS ORDERED: VANCOMYCIN1 GM IV (19:50)
[2017-01-18] MEDS ORDERED: COUMADIN3 MG ORAL (19:51)
[2017-01-18 19:52] VITALS: BP 126/64
[2017-01-18] MEDS ORDERED: MYLANTA II30 ML GT (19:53)
[2017-01-18] MEDS ORDERED: ZOFRAN4 M3 ORAL (19:55)
[2017-01-18] MEDS ORDERED: Iron Sucrose 100 MG in NS 55 ML IVPB ONE (21:00)
--- NOTE | 2017-01-19 15:48 | Discharge Summary ---
Discharge Summary Hospital Course Date of Admission January 12, 2017 at 22:12 Date of Discharge January 18, 2017 at 20:50 Admitting Diagnosis respiratory failure HPI Bret Boyce is a 66 year old male who was admitted on January 12, 2017 at 22:12 for Respiratory Failure Hospital Course [id number] Discharge Discharge Disposition Patient was discharged to snf Discharge Diagnoses: Wendi Sams NP January 19, 2017 15:48
--- NOTE | 2017-01-20 04:48 | Discharge Summary 2 SIG ---
DATE OF ADMISSION: 01/12/2017 DATE OF DISCHARGE: 01/18/2017 CONSULTANTS: 1. Gilberto Freedman M.D. 2. Misty Rojas M.D. 3. Frankie Ratliff M.D. 4. Shayy Moore M.D. 5. Jesús Dinh M.D. BRIEF HOSPITAL COURSE: The patient is a 66-year-old male from [facility], presented to [facility] with increased shortness of breath and lethargy. On evaluation at ED, the patient was noted to have markedly difficult breathing and was started on BiPAP. Chest x-ray showed right lower lung infiltrate and laboratory testing showed elevated white blood count as well as BUN and creatinine consistent with prerenal azotemia. The patient was admitted to [facility] and was followed by Dr. Rojas. He was placed on IV fluid and was continued on BiPAP with breathing treatments with bronchodilators. Dr. Moore was consulted. The patient with elevated creatinine and was found to be severely hypernatremic and dehydrated. The patient had acute renal failure including acute tubular necrosis and was continued with free water. Venous duplex revealed patent venous system bilaterally. No DVT. He was followed by Dr. Freedman for evaluation of blood dyscrasia. The patient had iron deficiency and was given IV iron and had a history of DVT to the right lower extremity and was continued on Coumadin. Dr. Dinh was consulted for positive stool OB. He was continued with IV Venofer and H2 blockers. Dr. Shah was consulted for sinus tachycardia, which was assessed to be due to sepsis and pneumonia. Echocardiogram showed normal left ventricular systolic function. He came in with pressure ulcers and was given wound care. He was eventually tapered off BiPAP. BUN and creatinine were improved and the patient was eventually discharged back to SNF. FINAL DIAGNOSES: 1. Severe sepsis. 2. Acute respiratory failure requiring BiPAP. 3. Pneumonia probable aspiration. 4. Anemia. 5. Schizophrenia. 6. Chronic obstructive pulmonary disease. 7. Alzheimer's dementia. 8. Feeding via gastrostomy tube. 9. Anemia of chronic disease. 10. Anemia of iron deficiency. 11. Anemia of kidney disease. 12. History of deep venous thrombosis of the right lower extremity on anticoagulation with Coumadin. 13. Pressure ulcer on the right lateral malleolus and right trochanter, present on admission. Johan Rangel D.O. I have been assigned to dictate discharge summary on this account and I was not involved in the patient's management. Wendi Sams N.P. DR: FANNY JOB#: [id number] CC: OSCAR
== END 2017-01-18 20:50 | DRG 720 ==
LOC: EDBD 21:25 → EMR 22:06 → 2W 22:12 → EDBEDREQ 22:24 → 4E 01-16 18:45
PROC: 5A09557 Assistance with Respiratory Ventilation, Greater than 96 Consecutive Hours, Continuous Positive Airway Pressure (ICD-10-PCS; principal; 2017-01-12)
DX: A41.9 Sepsis, unspecified organism (principal); J96.00 Acute respiratory failure, unspecified whether with hypoxia or hypercapnia; N17.0 Acute kidney failure with tubular necrosis; J69.0 Pneumonitis due to inhalation of food and vomit; R65.21 Severe sepsis with septic shock; G93.40 Encephalopathy, unspecified; E87.0 Hyperosmolality and hypernatremia; L89.210 Pressure ulcer of right hip, unstageable; E46 Unspecified protein-calorie malnutrition; J44.9 Chronic obstructive pulmonary disease, unspecified; G30.9 Alzheimer's disease, unspecified; F02.80 Dementia in other diseases classified elsewhere, unspecified severity, without behavioral disturbance, psychotic disturbance, mood disturbance, and anxiety; E86.0 Dehydration; N17.9 Acute kidney failure, unspecified; F20.9 Schizophrenia, unspecified; K21.9 Gastro-esophageal reflux disease without esophagitis; Z43.1 Encounter for attention to gastrostomy; D63.8 Anemia in other chronic diseases classified elsewhere; D50.9 Iron deficiency anemia, unspecified; D63.1 Anemia in chronic kidney disease; Z86.718 Personal history of other venous thrombosis and embolism; Z79.01 Long term (current) use of anticoagulants; M19.90 Unspecified osteoarthritis, unspecified site; I50.9 Heart failure, unspecified; D69.6 Thrombocytopenia, unspecified; R13.10 Dysphagia, unspecified; I25.10 Atherosclerotic heart disease of native coronary artery without angina pectoris; I12.9 Hypertensive chronic kidney disease with stage 1 through stage 4 chronic kidney disease, or unspecified chronic kidney disease; N18.9 Chronic kidney disease, unspecified; R62.7 Adult failure to thrive; N39.0 Urinary tract infection, site not specified; L89.510 Pressure ulcer of right ankle, unstageable
CPT/HCPCS: 36415; 36600; 71010; 80048; 80053; 80069; 80202; 81003; 82043; 82044; 82270; 82378; 82550; 82553; 82570; 82607; 82728; 82803; 83540; 83550; 83605; 83615; 83690; 83735; 83880; 84100; 84153; 84300; 84484; 85007; 85025; 85610; 87040; 87070; 87081; 87181; 87205; 89050; 92610; 93005; 93306; 93970; 94660; 94664; 94760

== ENCOUNTER 2017-06-21 02:14 | Inpatient (IN) | payer MEDICAID ==
[2017-06-21] VITALS (8 sets, daily range): BP systolic 104–139; BP diastolic 63–78
[~2017-06-21] VITALS: Ht 185.4 cm; Wt 81.6 kg
[~2017-06-21 02:14] MED LIST changes: +ACETAMINOPHEN325 M1 ORAL; +ATIVAN1 MG ORAL; +COUMADIN3 MG ORAL; +MIRALAX17 G2 GT; +MYLANTA II30 ML GT; +PEPCID20 MG ORAL; +VANCOMYCIN1 GM IV; +ZOSYN 3.373.375 GM/1 IVPB; +ZYPREXA10 MG GT
[2017-06-21] MEDS ORDERED: Sodium Chloride 500ML 500 ML IV ONE (02:21)
[2017-06-21] MEDS ORDERED: WARFARIN SODIU2.5 MG ORAL (02:34)
[2017-06-21] MEDS ORDERED: Piperacillin/Tazobactam 3.375 GM in NS 110 ML IVPB ONE (03:15)
[2017-06-21] MEDS ORDERED: Azithromycin 500 MG in NS 275 ML IV ONE (03:15)
--- NOTE | 2017-06-21 03:25 | Emergency Room Report ---
History of Present Illness General Chief Complaint: Dyspnea/Respdistress Source: Medical Record Present Illness HPI 66-year-old male presents to ED for evaluation. Per EMS patient noted to have difficulty breathing at his [place] [facility] x[facility] day. Chest x-ray was done last night which showed a pneumonia the patient was transported here. On arrival patient showing no signs of distress. No fevers or chills. Patient has encephalopathy and is unable to provide any additional history at this time. No aggravating or leading factors. No other associated symptoms Allergies: Coded Allergies: No Known Allergies (Unverified , 12/05/15) Patient History Past Medical History: HTN, COPD, other - encephalopathy Past Surgical History: none Social History: Denies: smoking, alcohol use, drug use Immunizations: UTD Reviewed Nursing Documentation: PMH: Agreed, PSxH: Agreed Nursing Documentation-PMH Past Medical History: No History, Except For Hx Cardiac Problems: Yes Hx Hypertension: Yes Hx COPD: Yes Hx Cancer: No Hx Gastrointestinal Problems: Yes Hx Neurological Problems: Yes - Encephalopathy Review of Systems All Other Systems: limited Physical Exam Vital Signs Date Time Temp Pulse Resp B/P (MAP) Pulse Ox O2 Delivery O2 Flow Rate FiO2 06/21/17 02:08 97.5 82 21 105/62 97 Simple Mask 6.0 06/21/17 02:23 97 Sp02 EP Interpretation: reviewed, normal General Appearance: other - nonverbal Head: normocephalic Eyes: bilateral eye normal inspection, bilateral eye PERRL ENT: normal ENT inspection Neck: normal inspection Respiratory: crackles Cardiovascular #1: regular rate, rhythm, no edema Gastrointestinal: normal bowel sounds, non tender, soft, non-distended, no guarding, no rebound Rectal: deferred Genitourinary: no CVA tenderness Musculoskeletal: normal inspection Neurologic: other - nonvrbal Psychiatric: other - nonverbal Skin: normal inspection Lymphatic: normal inspection Medical Decision Making Diagnostic Impression: Primary Impression: Pneumonia Qualified Codes: J18.9 - Pneumonia, unspecified organism ER Course Hospital Course 66-year-old M presenting to ED with respiratory distress, and crackles Differential diagnoses include: Pneumonia, CHF exacerbation, pneumothorax, fluid overload Clinical course Patient placed on stretcher. On athletic monitor. After initial history and physical, I ordered labs, IV fluids, EKG, chest x-ray, blood cultures, UA. Patient placed on nasal cannula with O2 saturation improving Labs -no leukocytosis noted, hemoglobin/hematocrit stable, electrolytes okay, lactate okay troponins negative CXR - pneumonia EKG - NSR, no acute ischemic changes interpreted by me abx given. Case discussed with Dr. Singh and he agreed to the patient to his service for further care and support I feel this is a highly complex case requiring extensive working including EKG/ Rhythm strip, Xray/CT/US, Blood/urine lab work, repeat exams while in ED, and administration of strong opiates/narcotics for pain control, admission to hospital or close patient follow up. Diagnosis - pneumonia Patient admitted to floor in serious condition Labs Test 06/21/17 02:50 06/21/17 03:20 White Blood Count 5.8 K/UL (4.8-10.8) Red Blood Count 5.50 M/UL (4.70-6.10) Hemoglobin 14.9 G/DL (14.2-18.0) Hematocrit 45.8 % (42.0-52.0) Mean Corpuscular Volume 83 FL (80-99) Mean Corpuscular Hemoglobin 27.0 PG (27.0-31.0) Mean Corpuscular Hemoglobin Concent 32.5 G/DL (32.0-36.0) Red Cell Distribution Width 15.6 % (11.6-14.8) Platelet Count 156 K/UL (150-450) Mean Platelet Volume 12.2 FL (6.5-10.1) Neutrophils (%) (Auto) 61.9 % (45.0-75.0) Lymphocytes (%) (Auto) 23.1 % (20.0-45.0) Monocytes (%) (Auto) 13.2 % (1.0-10.0) Eosinophils (%) (Auto) 1.1 % (0.0-3.0) Basophils (%) (Auto) 0.8 % (0.0-2.0) Sodium Level 133 MMOL/L (136-145) Potassium Level 4.5 MMOL/L (3.5-5.1) Chloride Level 97 MMOL/L (98-107) Carbon Dioxide Level 31 MMOL/L (21-32) Anion Gap 5 (5-15) Blood Urea Nitrogen 23 mg/dL (7-18) Creatinine 0.9 MG/DL (0.55-1.30) Estimat Glomerular Filtration Rate > 60 mL/min (>60) Glucose Level 83 MG/DL (74-106) Lactic Acid Level 1.80 mmol/L (0.66-2.22) Total Bilirubin 0.4 MG/DL (0.2-1.0) Aspartate Amino Transf (AST/SGOT) 102 U/L (15-37) Alanine Aminotransferase (ALT/SGPT) 128 U/L (12-78) Alkaline Phosphatase 91 U/L (46-116) Total Creatine Kinase 370 U/L (26-308) Creatine Kinase MB 3.3 NG/ML (0.0-3.6) Creatine Kinase MB Relative Index 0.8 Pro-B-Type Natriuretic Peptide 265 (0-125) Total Protein 9.0 G/DL (6.4-8.2) Albumin 3.4 G/DL (3.4-5.0) Globulin 5.6 g/dL Albumin/Globulin Ratio 0.6 (1.0-2.7) EKG Diagnostic Results Rate: normal Rhythm: NSR ST Segments: no acute changes ASA given to the pt in ED: No Rhythm Strip Diag. Results EP Interpretation: yes Rhythm: NSR, no PVC's, no ectopy Chest X-Ray Diagnostic Results Chest X-Ray Diagnostic Results : Chest X-Ray Ordered: Yes # of Views/Limited/Complete: 1 View Indication: Shortness of Breath EP Interpretation: Yes Interpretation: no pneumothorax, no acute cardiopulmonary disease Impression: Other - pneumonia Electronically Signed by: Electronically signed by Chirag Lozada MD Last Vital Signs Date Time Temp Pulse Resp B/P (MAP) Pulse Ox O2 Delivery O2 Flow Rate FiO2 06/21/17 02:23 97.5 86 15 104/63 98 Room Air 06/21/17 02:23 97 06/21/17 02:08 6.0 Status: improved Disposition: ADMITTED INPATIENT Condition: Serious Referrals: ALONDRA SINGH (PCP) CHIRAG LOZADA M.D. Jun 21, 2017 03:25
[2017-06-21] MEDS ORDERED: Zosyn 3.375gm inj ONE (03:31)
[2017-06-21 03:33] LABS: APPEARANCE,URINE CLEAR; KETONES,URINE NEGATIVE (NEGATIVE); LEUKOCYTE ESTERASE ,URINE 1+ (NEGATIVE); NITRITE,URINE NEGATIVE (NEGATIVE); PH,URINE 7 (4.5-8.0); PROTEIN,URINE 1+ (NEGATIVE); UROBILINOGEN,URINE 1 MG/DL (0.0-1.0)
[2017-06-21 03:33] LABS: BASOPHILS % (AUTO) 0.8 % (0.0-2.0); EOSINOPHILS % (AUTO) 1.1 % (0.0-3.0); LYMPHOCYTES % (AUTO) 23.1 % (20.0-45.0); MEAN CORPUSCULAR HGB CONC 32.5 G/DL (32.0-36.0); MEAN CORPUSCULAR VOLUME 83 FL (80-99); MEAN PLATELET VOLUME 12.2 FL (6.5-10.1); MONOCYTES % (AUTO) 13.2 % (1.0-10.0); NEUTROPHILS % (AUTO) 61.9 % (45.0-75.0); PLATELET COUNT 156 K/UL (150-450); RED CELL DISTRIBUTION WIDTH 15.6 % (11.6-14.8); WHITE BLOOD COUNT 5.8 K/UL (4.8-10.8)
[2017-06-21] MEDS ORDERED: Azithromycin 500mg Inj IV ONE (03:50)
[2017-06-21 04:13] LABS: ALANINE AMINOTRANSFERASE 128 U/L (12-78); ALBUMIN/GLOBULIN RATIO 0.6 (1.0-2.7); ANION GAP 5 (5-15); ASPARTATE AMINO TRANSFERASE 102 U/L (15-37); CARBON DIOXIDE 31 MMOL/L (21-32); CHLORIDE 97 MMOL/L (98-107); CKMB 3.3 NG/ML (0.0-3.6); CREATININE 0.9 MG/DL (0.55-1.30); GLOMERULAR FILTRATION RATE > 60 mL/min (>60); POTASSIUM 4.5 MMOL/L (3.5-5.1); SODIUM 133 MMOL/L (136-145)
[2017-06-21 04:24] LABS: CALCIUM 8.9 MG/DL (8.5-10.1)
[2017-06-21] MEDS ORDERED: Enoxaparin 80mg Inj SUBQ ONE (04:30)
--- NOTE | 2017-06-21 04:36 | Emergency Room Report ---
Physical Exam Vital Signs Date Time Temp Pulse Resp B/P (MAP) Pulse Ox O2 Delivery O2 Flow Rate FiO2 06/21/17 02:08 97.5 82 21 105/62 97 Simple Mask 6.0 06/21/17 02:23 97 Medical Decision Making Diagnostic Impression: Primary Impression: Pneumonia Qualified Codes: J18.9 - Pneumonia, unspecified organism Additional Impressions: Elevated troponin Encephalopathy ER Course Troponins came back as +0.129 EKG shows no acute ischemic changes Patient has encephalopathy and is unable to determine whether he is experiencing chest pain On review of previous admission patient also had an elevated troponin which trended downward Findings conveyed to admitting physicians. Given aspirin, Plavix, Lovenox Patient will be upgraded to [facility] Labs Test 06/21/17 02:50 06/21/17 03:20 White Blood Count 5.8 K/UL (4.8-10.8) Red Blood Count 5.50 M/UL (4.70-6.10) Hemoglobin 14.9 G/DL (14.2-18.0) Hematocrit 45.8 % (42.0-52.0) Mean Corpuscular Volume 83 FL (80-99) Mean Corpuscular Hemoglobin 27.0 PG (27.0-31.0) Mean Corpuscular Hemoglobin Concent 32.5 G/DL (32.0-36.0) Red Cell Distribution Width 15.6 % (11.6-14.8) Platelet Count 156 K/UL (150-450) Mean Platelet Volume 12.2 FL (6.5-10.1) Neutrophils (%) (Auto) 61.9 % (45.0-75.0) Lymphocytes (%) (Auto) 23.1 % (20.0-45.0) Monocytes (%) (Auto) 13.2 % (1.0-10.0) Eosinophils (%) (Auto) 1.1 % (0.0-3.0) Basophils (%) (Auto) 0.8 % (0.0-2.0) Sodium Level 133 MMOL/L (136-145) Potassium Level 4.5 MMOL/L (3.5-5.1) Chloride Level 97 MMOL/L (98-107) Carbon Dioxide Level 31 MMOL/L (21-32) Anion Gap 5 (5-15) Blood Urea Nitrogen 23 mg/dL (7-18) Creatinine 0.9 MG/DL (0.55-1.30) Estimat Glomerular Filtration Rate > 60 mL/min (>60) Glucose Level 83 MG/DL (74-106) Lactic Acid Level 1.80 mmol/L (0.66-2.22) Calcium Level 8.9 MG/DL (8.5-10.1) Total Bilirubin 0.4 MG/DL (0.2-1.0) Aspartate Amino Transf (AST/SGOT) 102 U/L (15-37) Alanine Aminotransferase (ALT/SGPT) 128 U/L (12-78) Alkaline Phosphatase 91 U/L (46-116) Total Creatine Kinase 370 U/L (26-308) Creatine Kinase MB 3.3 NG/ML (0.0-3.6) Creatine Kinase MB Relative Index 0.8 Troponin I 0.129 ng/mL (0.000-0.056) Pro-B-Type Natriuretic Peptide 265 (0-125) Total Protein 9.0 G/DL (6.4-8.2) Albumin 3.4 G/DL (3.4-5.0) Globulin 5.6 g/dL Albumin/Globulin Ratio 0.6 (1.0-2.7) Urine Color Yellow Urine Appearance Clear Urine pH 7 (4.5-8.0) Urine Specific [place] 1.010 (1.005-1.035) Urine Protein 1+ (NEGATIVE) Urine Glucose (UA) Negative (NEGATIVE) Urine Ketones Negative (NEGATIVE) Urine Occult Blood 2+ (NEGATIVE) Urine Nitrite Negative (NEGATIVE) Urine Bilirubin Negative (NEGATIVE) Urine Urobilinogen 1 MG/DL (0.0-1.0) Urine Leukocyte Esterase 1+ (NEGATIVE) Last Vital Signs Date Time Temp Pulse Resp B/P (MAP) Pulse Ox O2 Delivery O2 Flow Rate FiO2 06/21/17 04:16 97.5 77 28 114/77 94 Nasal Cannula 2.0 06/21/17 02:23 97 Status: improved Disposition: ADMITTED INPATIENT Condition: Critical Referrals: ALONDRA SINGH (PCP) Critical Care Time Critical Care Time i. I feel this is a highly complex case requiring extensive working including EKG/Rhythm strip, Xray/CT/US, Blood/urine lab work, repeat exams while in ED, and administration of strong opiates/narcotics for pain control, admission to hospital or close patient follow up. Total time: 30 min bedside evaluation and treatment excludes procedures (EKG). Reason for critical care: pneumonia, elevated troponin Possible complications: hypotension, hypertension, [place], shock, arrhythmias, metabolic acidosis, end organ damage, respiratory failure. Interventions: labs, EKG, CXR, IVFs. Abx. aspirin, plavix, lovenox Course: Patient presenting with congestion, pneumonia and chest x-ray. EKG shows no acute ischemic changes. Troponin 0.129. Given aspirin, Plavix, Lovenox Consultations: nursing staff, EMS, family Performed by: Dr Lozada Tolerated well condition = critical j. because of unstable vital signs this patient had a condition that could potentially threaten life or limb. I feel this is a critical patient who required my full attention while patient was considered critical. Total Critical Care Time excluding procedures was greater than 35 minutes TIM LOZADA M.D. Jun 21, 2017 04:36
[2017-06-21 04:51] LABS: BACTERIA,URINE FEW /HPF; RBC,URINE 15-20 /HPF (0 - 0); SQUAMOUS EPITHELIAL CELL,UR FEW /LPF (NONE/OCC)
[2017-06-21] MEDS ORDERED: Albuterol/Ipratropium 3ml neb HHN PRN (07:00)
[2017-06-21] MEDS ORDERED: Nitroglycerin Subl 0.4mg tab SL PRN (07:00)
[2017-06-21] MEDS ORDERED: Promethazine/Codeine 5ml UD ORAL PRN (07:00)
[2017-06-21] MEDS ORDERED: Mylanta II UD 30ml ORAL PRN (07:00)
[2017-06-21] MEDS ORDERED: LORazepam 1mg tab ORAL PRN (07:00)
[2017-06-21] MEDS ORDERED: Miralax 17gm pkt ORAL PRN (07:00)
[2017-06-21] MEDS ORDERED: Vancomycin 1.5 GM/D5W 250ML IVPB ONE (09:00)
[2017-06-21] MEDS: ZyPREXA Zydis 10mg tab ORAL SCH ×2 (09:00→20:39)
[2017-06-21] MEDS: Heparin 5000 units/ml inj SUBQ SCH ×2 (11:25→20:39)
--- NOTE | 2017-06-21 11:28 | Diagnostic Imaging Report ---
Indication: SOB Technique: One view of the chest Comparison: 01/15/2017 Findings: There is elevation left hemidiaphragm. There is atelectasis at the left lung. Lungs and pleural spaces are otherwise clear. Heart size is probably normal. Patient's chin obscures the right lung apex. Patient is rotated to the right Impression: Elevated left hemidiaphragm. Left basilar atelectasis Acute process otherwise Limited exam as described
--- NOTE | 2017-06-21 11:30 | Consultation ---
History of Present Illness General Date patient seen: Jun 21, 2017 Chief Complaint: Dyspnea/Respdistress Referring physician: Dr. Rangel Reason for Consultation: dyspnea Present Illness HPI 66-year-old male with hx of end stage dementia, PEG, at the brink of life, retirement resident, bed bound presented to ED for evaluation of difficulty breathing at his retirement x1 day. Chest x-ray was done last night which showed a pneumonia. On arrival patient showing no signs of distress. No fevers or chills. Patient has encephalopathy and is unable to provide any additional history. Pt had a high troponin level and therefore admitted to [facility] for further work up. Allergies: Coded Allergies: No Known Allergies (Unverified , 12/05/15) Medication History Scheduled Famotidine (Pepcid), 20 MG ORAL Q12HR, (Reported) Midodrine* (Proamatine*), 5 MG ORAL THREE TIMES A DAY, (Reported) Olanzapine* (Zyprexa*), 10 MG GT BID, (Reported) Randclleauxy-Awrx-Ocwpczee,Iso (Zosyn 3.375 Gm Pre Mix-Bag), 3.375 GM IVPB EVERY 8 HOURS, (Reported) Vancomycin Hcl (Vancomycin), 1.25 GM IV Q24H, (Reported) Warfarin Sod* (Coumadin*), 3 MG ORAL DAILY, (Reported) Warfarin Sod* (Warfarin Sod*), 2.5 MG ORAL DAILY, (Reported) Scheduled PRN Acetaminophen (Tylenol), 325 MG ORAL Q4HR PRN for For Pain, (Reported) Al Hydroxide/mg Hydroxide (Mag-Al Plus Suspension), 30 ML GT Q6HR PRN for Abdominal cramps, (Reported) Codeine/Promethazine Hcl* (Promethazine-Codeine Syrup*), 5 ML ORAL Q4H PRN for For Cough, (Reported) Ipratropium/Albuterol Sulfate (DuoNeb 0.5-3(2.5)mg/3ml), 3 ML HHN Q4HR PRN for Shortness of Breath, (Reported) Lorazepam* (Ativan*), 1 MG ORAL Q6HR PRN for For Anxiety, (Reported) Nitroglycerin (Nitroglycerin), 0.4 MG SL for Prn Chest Pain, (Reported) Ondansetron* (Zofran*), 4 MG ORAL Q6H PRN for Nausea & Vomiting, (Reported) Polyethylene Glycol 3350* (Miralax*), 17 GM GT DAILY PRN for Constipation, ( Reported) Temazepam* (Restoril*), 15 MG ORAL BEDTIME PRN for Insomnia, (Reported) Patient History Healthcare decision maker Resuscitation status Advanced Directive on File Past Medical/Surgical History Past Medical/Surgical History: (1) Schizophrenia (2) Alzheimer's dementia (3) Feeding by G-tube (4) Cachexia (5) COPD (chronic obstructive pulmonary disease) Review of Systems All Other Systems: negative except mentioned in HPI Physical Exam General Appearance: cachetic Lines, tubes and drains: peripheral HEENT: normocephalic, atraumatic Neck: non-tender, normal alignment Respiratory/Chest: chest wall non-tender, lungs clear Breasts: no masses Cardiovascular/Chest: normal peripheral pulses, normal rate Abdomen: normal bowel sounds, soft Genitourinary/Rectal: normal genital exam, normal rectal exam Extremities: normal range of motion, non-tender Skin Exam: normal pigmentation Neurologic: hha II-XII grossly normal, no motor/sensory deficits Last 24 Hour Vital Signs Date Time Temp Pulse Resp B/P (MAP) Pulse Ox O2 Delivery O2 Flow Rate FiO2 06/21/17 08:00 98.4 66 20 114/71 95 Nasal Cannula 2.0 06/21/17 06:55 98.4 66 20 114/71 96 Nasal Cannula 2.0 06/21/17 06:48 97.5 79 18 114/78 95 Nasal Cannula 1.5 97 06/21/17 06:16 97.5 79 18 114/78 95 Nasal Cannula 1.5 06/21/17 04:16 97.5 77 28 114/77 94 Nasal Cannula 2.0 06/21/17 02:23 97.5 86 15 104/63 98 Room Air 06/21/17 02:23 86 15 Room Air 97 06/21/17 02:08 97.5 82 21 105/62 97 Simple Mask 6.0 Laboratory Tests Test 06/21/17 02:50 06/21/17 03:20 White Blood Count 5.8 K/UL (4.8-10.8) Red Blood Count 5.50 M/UL (4.70-6.10) Hemoglobin 14.9 G/DL (14.2-18.0) Hematocrit 45.8 % (42.0-52.0) Mean Corpuscular Volume 83 FL (80-99) Mean Corpuscular Hemoglobin 27.0 PG (27.0-31.0) Mean Corpuscular Hemoglobin Concent 32.5 G/DL (32.0-36.0) Red Cell Distribution Width 15.6 % (11.6-14.8) H Platelet Count 156 K/UL (150-450) Mean Platelet Volume 12.2 FL (6.5-10.1) H Neutrophils (%) (Auto) 61.9 % (45.0-75.0) Lymphocytes (%) (Auto) 23.1 % (20.0-45.0) Monocytes (%) (Auto) 13.2 % (1.0-10.0) H Eosinophils (%) (Auto) 1.1 % (0.0-3.0) Basophils (%) (Auto) 0.8 % (0.0-2.0) Sodium Level 133 MMOL/L (136-145) L Potassium Level 4.5 MMOL/L (3.5-5.1) Chloride Level 97 MMOL/L (98-107) L Carbon Dioxide Level 31 MMOL/L (21-32) Anion Gap 5 (5-15) Blood Urea Nitrogen 23 mg/dL (7-18) H Creatinine 0.9 MG/DL (0.55-1.30) Estimat Glomerular Filtration Rate > 60 mL/min (>60) Glucose Level 83 MG/DL (74-106) Lactic Acid Level 1.80 mmol/L (0.66-2.22) Calcium Level 8.9 MG/DL (8.5-10.1) Total Bilirubin 0.4 MG/DL (0.2-1.0) Aspartate Amino Transf (AST/SGOT) 102 U/L (15-37) H Alanine Aminotransferase (ALT/SGPT) 128 U/L (12-78) H Alkaline Phosphatase 91 U/L (46-116) Total Creatine Kinase 370 U/L (26-308) H Creatine Kinase MB 3.3 NG/ML (0.0-3.6) Creatine Kinase MB Relative Index 0.8 Troponin I 0.129 ng/mL (0.000-0.056) Pro-B-Type Natriuretic Peptide 265 (0-125) H Total Protein 9.0 G/DL (6.4-8.2) H Albumin 3.4 G/DL (3.4-5.0) Globulin 5.6 g/dL Albumin/Globulin Ratio 0.6 (1.0-2.7) L Urine Color Yellow Urine Appearance Clear Urine pH 7 (4.5-8.0) Urine Specific [place] 1.010 (1.005-1.035) Urine Protein 1+ (NEGATIVE) H Urine Glucose (UA) Negative (NEGATIVE) Urine Ketones Negative (NEGATIVE) Urine Occult Blood 2+ (NEGATIVE) H Urine Nitrite Negative (NEGATIVE) Urine Bilirubin Negative (NEGATIVE) Urine Urobilinogen 1 MG/DL (0.0-1.0) H Urine Leukocyte Esterase 1+ (NEGATIVE) H Urine RBC 15-20 /HPF (0 - 0) H Urine WBC 2-4 /HPF (0 - 0) Urine Squamous Epithelial Cells Few /LPF (NONE/OCC) Urine Bacteria Few /HPF (NONE) Height (Feet): 6 Height (Inches): 1.00 Weight (Pounds): 180 Medications Current Medications Medications (Trade) Dose Ordered Sig/Gloria Route PRN Reason Start Time Stop Time Status Last Admin Dose Admin Acetaminophen (Tylenol) 650 mg Q4H PRN ORAL T>100.5F 06/21/17 07:00 07/21/17 06:59 Al Hydroxide/Mg Hydroxide (Mylanta II) 30 ml Q6H PRN ORAL dyspepsia 06/21/17 07:00 07/21/17 06:59 Albuterol/ Ipratropium (DuoNeb 0.5-3(2.5)mg/3ml) 3 ml Q4H PRN HHN Shortness of Breath 06/21/17 07:00 06/26/17 06:59 Cefepime HCl 1 gm/ Dextrose 55 ml @ 110 mls/hr EVERY 12 HOURS IV 06/21/17 11:00 06/28/17 10:59 Heparin Sodium (Porcine) (Heparin 5000 units/ml) 5,000 units EVERY 12 HOURS SUBQ 06/21/17 09:00 07/21/17 08:59 Lorazepam (Ativan) 1 mg Q6H PRN ORAL For Anxiety 06/21/17 07:00 06/28/17 06:59 Midodrine (Pro-Amatine) 5 mg THREE TIMES A DAY ORAL 06/21/17 09:00 07/21/17 08:59 Nitroglycerin (Ntg) 0.4 mg Q5M PRN SL Prn Chest Pain 06/21/17 07:00 07/21/17 06:59 Olanzapine (ZyPREXA Zydis) 10 mg EVERY 12 HOURS ORAL 06/21/17 09:00 07/21/17 08:59 Ondansetron HCl (Zofran) 4 mg Q6H PRN IVP Nausea & Vomiting 06/21/17 07:00 07/21/17 06:59 Polyethylene Glycol (Miralax) 17 gm DAILYPRN PRN ORAL Constipation 06/21/17 07:00 07/21/17 06:59 Promethazine HCl/ Codeine (Phenergan with Codeine) 5 ml Q4H PRN ORAL For Cough 06/21/17 07:00 07/21/17 06:59 Temazepam (Restoril) 15 mg HSPRN PRN ORAL Insomnia 06/21/17 21:00 06/28/17 20:59 Vancomycin HCl (Vanco rx to dose) 1 ea DAILY PRN MISC Per rx protocol 06/21/17 07:00 07/21/17 06:59 Vancomycin HCl 1 gm/Dextrose 275 ml @ 183.708 mls/hr Q12HR@1000,2200 IVPB 06/21/17 22:00 06/26/17 21:59 Assessment/Plan Problem List: (1) Pneumonia ICD Codes: J18.9 - Pneumonia, unspecified organism SNOMED: 327649309 Qualifiers: Qualified Codes: J18.9 - Pneumonia, unspecified organism (2) Elevated troponin ICD Codes: R74.8 - Abnormal levels of other serum enzymes SNOMED: 901641183, 834462996 (3) Schizophrenia ICD Codes: F20.9 - Schizophrenia, unspecified SNOMED: 89882644 (4) COPD (chronic obstructive pulmonary disease) ICD Codes: J44.9 - Chronic obstructive pulmonary disease, unspecified SNOMED: 45781757 (5) Alzheimer's dementia ICD Codes: G30.9 - Alzheimer's disease, unspecified SNOMED: 64906928 (6) Feeding by G-tube ICD Codes: Z93.1 - Gastrostomy status SNOMED: 913321853, 820380089 (7) Cachexia ICD Codes: R64 - Cachexia SNOMED: 308314881 Assessment/Plan respiratory treatment check sputum IV abx titrate fio2 to sat of 92% increased troponin is probably an error, without any consequences. He is not a candidate for any cardiac procedures. ALMA LINDO Jun 21, 2017 11:30
[2017-06-21] MEDS ORDERED: Flu Vaccine Quadrivalent 0.5ml IM ONE (13:30)
[2017-06-21] MEDS: Cefepime HCl 1 GM in D5W 55 ML IV SCH ×2 (14:51→20:39)
[2017-06-21] MEDS: Vancomycin 1gm/D5W 275ml IVPB SCH ×2 (22:00)
--- NOTE | 2017-06-21 22:16 | History and Physical Report ---
DATE OF ADMISSION: 06/21/2017 TIME SEEN: 2 p.m. CONSULTANTS: 1. Misty Rojas M.D. 2. Dr. Funes. 3. Ren Shah M.D. 4. Jesús Dinh M.D. 5. Cristine Barker M.D. 6. Margarito Gil M.D. CHIEF COMPLAINT: Pneumonia, shortness of breath, altered mental status. HISTORY OF PRESENT ILLNESS: This is a 66-year-old male from [facility] presented with above-mentioned diagnosis, currently calm, confused in bed, contracted, not talking much. REVIEW OF SYSTEMS: Unavailable. PAST MEDICAL HISTORY: Altered mental status, DVT, MAR, COPD, Alzheimer, schizophrenia. PAST SURGICAL HISTORY: G-tube. MEDICATIONS: Vancomycin, temazepam, cefepime, midodrine, Zofran, lorazepam, Tylenol, Mylanta, nitroglycerin. ALLERGIES: Denies. SOCIAL HISTORY: Unable to obtain secondary to the patient's condition. PHYSICAL EXAMINATION: GENERAL: The patient is lethargic in bed, confused, not talking much. VITAL SIGNS: Temperature 97, pulse 78, respirations 21, and blood pressure 123/75. CARDIOVASCULAR: No murmur. LUNGS: Poor air exchange. ABDOMEN: Bowel sounds are positive. Nontender and nondistended. G-tube slight at the G-tube site. EXTREMITIES: No cyanosis, clubbing, or edema. Contracture at the hip and knee area. NEUROLOGIC: The patient moves all extremities, but does not want to follow commands. LABORATORY DATA: CBC is normal. BMP shows sodium 133, chloride 97, BUN 23. CK 370. Troponin is 0.129 and 0.061. Urinalysis shows 2+ occult blood, 1+ leukocyte esterase. ASSESSMENT: 1. Pneumonia. 2. Urinary tract infection. 3. Sepsis. 4. Shortness of breath. 5. Elevated troponin. 6. Altered mental status. 7. Deep venous thrombosis. 8. Chronic obstructive pulmonary disease. 9. Alzheimer. 10. Acute kidney injury. 11. Schizophrenia. PLAN: 1. Continue premedications. 2. Wound care. 3. OT/PT, dietary followup. 4. Antibiotics per Infectious Disease. 5. Troponin q. 8 h x3. 6. EKG in the morning. 7. Dr. Rojas, Dr. Funes, Dr. Shah, Dr. Moore, Dr. Dinh, Dr. Barker, and Dr. Gil, to consult. We will continue to follow this patient medically. Johan Rangel D.O. DR: Hesham JOB#: [id number] CC:
[2017-06-22] VITALS: BP 101/64
--- NOTE | 2017-06-22 01:31 | Consultation ---
DATE OF CONSULTATION: 06/21/2017 NEPHROLOGY CONSULTATION CONSULTING PHYSICIAN: Shayy Moore M.D. REFERRING PHYSICIAN: Johan Rangel D.O. REASON FOR CONSULTATION: Proteinuria and electrolyte abnormality. HISTORY OF PRESENT ILLNESS: The patient is an unfortunate malnourished 66-year-old male with past medical history significant for history of acute renal failure, and dehydration. Not too long ago, about four months ago, the patient was admitted in the hospital with hyponatremia and acute renal failure. At this time, he was presented to [facility] for evaluation of shortness of breath. Apparently, the patient had a chest x-ray done which revealed normal. Consequently, the patient was admitted in the hospital. I was called for management of renal disease and electrolyte imbalance. Unfortunately, the patient is unable to provide meaningful history, so most of my history is obtained through reviewing the information from the medical record on previous admission. PAST MEDICAL HISTORY: 1. History of acute renal failure. 2. History of chronic kidney disease. 3. History of malnutrition. 4. History of COPD. 5. History of sepsis. 6. History of DVT. 7. History of aspiration pneumonia. 8. History of PEG placement. PAST SURGICAL HISTORY: History of PEG placement. MEDICATIONS: 1. Tylenol 650 mg q.6 h. p.r.n. pain. 2. Vancomycin per pharmacy. 3. 02:26 mg p.r.n. 4. Midodrine 5 mg p.o. daily. 5. Olanzapine or Zyprexa 10 mg p.o. daily. 6. Heparin 5000 subcutaneously q.12 h. 7. MiraLAX p.r.n. constipation. 8. Nitro 0.4 sublingual. 9. Albuterol and Atrovent p.r.n. shortness of breath. 10. Zofran 4 mg IV q.4 h. p.r.n. FAMILY HISTORY: Noncontributory. SOCIAL HISTORY: There is no history of of tobacco, alcohol, or drug use. The patient lives at [facility]. He is bedbound. REVIEW OF SYSTEMS: Unable to obtain due to the patient's condition and mental status. PHYSICAL EXAMINATION: VITAL SIGNS: The patient has temperature of 97, blood pressure 114/78, pulse rate of 79, and respiratory rate of 18. HEAD AND NECK: No JVP. No LAD. No thyromegaly. Extraocular movements intact. Pupils are reactive to light and accommodation. LUNGS: Clear to auscultation. CARDIAC: Regular rate and rhythm. S1 and S2. No murmur. No rub. ABDOMEN: Soft, nontender, and nondistended. EXTREMITIES: No edema, clubbing, or cyanosis. LABORATORY DATA: WBC count of 5.8, hemoglobin of 14, hematocrit of 45, and platelet count of 156,000. Chemistry revealed sodium of 133, potassium 4.5, chloride 97, bicarbonate 31, BUN of 23, creatinine of 0.9, and glucose of 83. AST of 102, ALT of 128, and alkaline phosphatase of 91. Troponin is 0.129. BNP is 265. Albumin is 3.4. Globulin is 5.6. Urine revealed specific gravity of 1.010, protein 1+, blood 2+, RBC 15 to 20, and WBC 2 to 4. ASSESSMENT: 1. This patient is hypovolemic and hyponatremic based upon the chemistry. His bicarbonate is elevated. We will need an arterial blood gas to evaluate those. Most likely, the patient has some degree of dehydration. His hemoglobin is 9.5 and now it is 14, so I believe that there is some degree of hypovolemia and dehydration at this point. 2. Proteinuria. 3. Hematuria. 4. Pneumonia. 5. Malnutrition. PLAN: Plan for the patient, I would start the patient on normal saline at 50 mL/hour, although hydrating the patient with respiratory distress will require close monitoring of his respiratory status. I would obtain study and based on that result, I would make decision regarding the care and IV fluid. I would obtain random urine protein and creatinine ratio to calculate proteinuria, and check the urine sodium and creatinine to calculate fractional excretion of sodium. I would repeat UA to urine. I would like to thank Dr. Johan Rangel for allowing me to participate in the care of this patient. Shayy Moore M.D. DR: SWETA JOB#: [id number] CC:
[2017-06-22 04:00] VITALS: BP 126/70
[2017-06-22 07:07] LABS: BASOPHILS % (AUTO) 0.6 % (0.0-2.0); EOSINOPHILS % (AUTO) 4.1 % (0.0-3.0); MEAN CORPUSCULAR HEMOGLOBIN 26.9 PG (27.0-31.0); MEAN CORPUSCULAR VOLUME 84 FL (80-99); MEAN PLATELET VOLUME 11.9 FL (6.5-10.1); MONOCYTES % (AUTO) 15.4 % (1.0-10.0); NEUTROPHILS % (AUTO) 59.9 % (45.0-75.0); PLATELET COUNT 109 K/UL (150-450); RED BLOOD COUNT 4.43 M/UL (4.70-6.10); RED CELL DISTRIBUTION WIDTH 15.6 % (11.6-14.8); WHITE BLOOD COUNT 4.5 K/UL (4.8-10.8)
[2017-06-22 07:52] LABS: ALANINE AMINOTRANSFERASE 107 U/L (12-78); ALBUMIN/GLOBULIN RATIO 0.6 (1.0-2.7); ANION GAP 9 (5-15); ASPARTATE AMINO TRANSFERASE 93 U/L (15-37); CALCIUM 9.8 MG/DL (8.5-10.1); CARBON DIOXIDE 23 MMOL/L (21-32); CHLORIDE 103 MMOL/L (98-107); CREATININE 0.8 MG/DL (0.55-1.30); GLOMERULAR FILTRATION RATE > 60 mL/min (>60); PHOSPHORUS 3.1 MG/DL (2.5-4.9); POTASSIUM 4.1 MMOL/L (3.5-5.1); SODIUM 135 MMOL/L (136-145); TOTAL PROTEIN 7.5 G/DL (6.4-8.2)
[2017-06-22 08:00] VITALS: BP 123/78
--- NOTE | 2017-06-22 08:01 | Nephrology Progress Note ---
Assessment/Plan Assessment 1.hypovolemic hyponatremia 2. Proteinuria. 3. Hematuria. 4. Pneumonia. 5. Malnutrition. 6.hypomagnesemia Plan plan to continue current med replace mg monitoring renal function avoid any NSAID check in and out put closely Subjective ROS Limited/Unobtainable: Yes Constitutional: Reports: no symptoms HEENT: Reports: no symptoms Genitourinary: Reports: no symptoms Neurologic/Psychiatric: Reports: no symptoms Subjective in NAD no events Objective Objective Last 24 Hour Vital Signs Date Time Temp Pulse Resp B/P (MAP) Pulse Ox O2 Delivery O2 Flow Rate FiO2 06/22/17 07:27 72 16 Room Air 99 06/22/17 04:00 78 06/22/17 04:00 98.1 72 18 126/70 100 Nasal Cannula 2.0 06/22/17 00:00 96.4 72 18 101/64 98 Nasal Cannula 2.0 06/21/17 21:25 64 16 Room Air 96 06/21/17 20:00 98.2 77 20 139/72 96 Nasal Cannula 2.0 06/21/17 20:00 80 06/21/17 16:00 62 06/21/17 16:00 97.3 70 20 119/68 100 Nasal Cannula 2.0 06/21/17 12:41 70 06/21/17 12:00 97.2 70 21 123/75 99 Nasal Cannula 2.0 06/21/17 08:00 98.4 66 20 114/71 95 Nasal Cannula 2.0 Intake and Output 06/22/17 06/23/17 19:00 07:00 Output Total 600 ml Balance -600 ml Output Urine Total 600 ml Laboratory Tests 06/21/17 11:35: Troponin I 0.061H 06/22/17 04:35: Troponin I 0.033, White Blood Count 4.5L, Red Blood Count 4.43L, Hemoglobin 11.9L, Hematocrit 37.2L, Mean Corpuscular Volume 84, Mean Corpuscular Hemoglobin 26.9L, Mean Corpuscular Hemoglobin Concent 32.0, Red Cell Distribution Width 15.6H, Platelet Count 109L, Mean Platelet Volume 11.9H, Neutrophils (%) (Auto) 59.9, Lymphocytes (%) (Auto) 20.0, Monocytes (%) (Auto) 15.4H, Eosinophils (%) (Auto) 4.1H, Basophils (%) (Auto) 0.6, Sodium Level 135L , Potassium Level 4.1, Chloride Level 103, Carbon Dioxide Level 23, Anion Gap 9 , Blood Urea Nitrogen 18, Creatinine 0.8, Estimat Glomerular Filtration Rate > 60, Glucose Level 73L, Calcium Level 9.8, Phosphorus Level 3.1, Magnesium Level 1.5L, Total Bilirubin 0.5, Aspartate Amino Transf (AST/SGOT) 93H, Alanine Aminotransferase (ALT/SGPT) 107H, Alkaline Phosphatase 77, Total Protein 7.5, Albumin 2.8L, Globulin 4.7, Albumin/Globulin Ratio 0.6L Height (Feet): 6 Height (Inches): 1.00 Weight (Pounds): 180 Objective HEAD AND NECK: No JVP. No LAD. No thyromegaly. Extraocular movements intact. Pupils are reactive to light and accommodation. LUNGS: Clear to auscultation. CARDIAC: Regular rate and rhythm. S1 and S2. No murmur. No rub. ABDOMEN: Soft, nontender, and nondistended. EXTREMITIES: No edema, clubbing, or cyanosis BARTOLOME OVALLES Jun 22, 2017 08:01
[2017-06-22] MEDS: Heparin 5000 units/ml inj SUBQ SCH ×2 (09:00→21:00)
[2017-06-22] MEDS: ZyPREXA Zydis 10mg tab ORAL SCH ×2 (09:45→22:11)
--- NOTE | 2017-06-22 10:00 | Cardiology Progress Note ---
Assessment/Plan Assessment/Plan The patient is seen and examined, full consult note will be dictated. Objective Last 24 Hour Vital Signs Date Time Temp Pulse Resp B/P (MAP) Pulse Ox O2 Delivery O2 Flow Rate FiO2 06/22/17 08:00 98.3 79 18 123/78 96 Nasal Cannula 2.0 06/22/17 07:27 72 16 Room Air 99 06/22/17 07:27 62 06/22/17 04:00 78 06/22/17 04:00 98.1 72 18 126/70 100 Nasal Cannula 2.0 06/22/17 00:00 96.4 72 18 101/64 98 Nasal Cannula 2.0 06/21/17 21:25 64 16 Room Air 96 06/21/17 20:00 98.2 77 20 139/72 96 Nasal Cannula 2.0 06/21/17 20:00 80 06/21/17 16:00 62 06/21/17 16:00 97.3 70 20 119/68 100 Nasal Cannula 2.0 06/21/17 12:41 70 06/21/17 12:00 97.2 70 21 123/75 99 Nasal Cannula 2.0 Intake and Output 06/22/17 06/23/17 19:00 07:00 Output Total 600 ml Balance -600 ml Output Urine Total 600 ml Laboratory Tests Test 06/21/17 11:35 06/22/17 04:35 Troponin I 0.061 ng/mL (0.000-0.056) 0.033 ng/mL (0.000-0.056) White Blood Count 4.5 K/UL (4.8-10.8) L Red Blood Count 4.43 M/UL (4.70-6.10) L Hemoglobin 11.9 G/DL (14.2-18.0) L Hematocrit 37.2 % (42.0-52.0) L Mean Corpuscular Volume 84 FL (80-99) Mean Corpuscular Hemoglobin 26.9 PG (27.0-31.0) L Mean Corpuscular Hemoglobin Concent 32.0 G/DL (32.0-36.0) Red Cell Distribution Width 15.6 % (11.6-14.8) H Platelet Count 109 K/UL (150-450) L Mean Platelet Volume 11.9 FL (6.5-10.1) H Neutrophils (%) (Auto) 59.9 % (45.0-75.0) Lymphocytes (%) (Auto) 20.0 % (20.0-45.0) Monocytes (%) (Auto) 15.4 % (1.0-10.0) H Eosinophils (%) (Auto) 4.1 % (0.0-3.0) H Basophils (%) (Auto) 0.6 % (0.0-2.0) Sodium Level 135 MMOL/L (136-145) L Potassium Level 4.1 MMOL/L (3.5-5.1) Chloride Level 103 MMOL/L (98-107) Carbon Dioxide Level 23 MMOL/L (21-32) Anion Gap 9 (5-15) Blood Urea Nitrogen 18 mg/dL (7-18) Creatinine 0.8 MG/DL (0.55-1.30) Estimat Glomerular Filtration Rate > 60 mL/min (>60) Glucose Level 73 MG/DL (74-106) L Calcium Level 9.8 MG/DL (8.5-10.1) Phosphorus Level 3.1 MG/DL (2.5-4.9) Magnesium Level 1.5 MG/DL (1.8-2.4) L Total Bilirubin 0.5 MG/DL (0.2-1.0) Aspartate Amino Transf (AST/SGOT) 93 U/L (15-37) H Alanine Aminotransferase (ALT/SGPT) 107 U/L (12-78) H Alkaline Phosphatase 77 U/L (46-116) Total Protein 7.5 G/DL (6.4-8.2) Albumin 2.8 G/DL (3.4-5.0) L Globulin 4.7 g/dL Albumin/Globulin Ratio 0.6 (1.0-2.7) L Microbiology Date/Time Source Procedure Growth Status 06/21/17 02:55 Blood Blood Culture - Preliminary NO GROWTH AFTER 24 HOURS Resulted 06/21/17 02:50 Blood Blood Culture - Preliminary NO GROWTH AFTER 24 HOURS Resulted VOLODYMYR BLANCHARD Jun 22, 2017 10:00
[2017-06-22] MEDS: Cefepime HCl 1 GM in D5W 55 ML IV SCH ×2 (10:45→22:11)
--- NOTE | 2017-06-22 11:51 | Neurology Progress Note ---
Interim History Interim History ROS Limited/Unobtainable: Yes Objective Physical Exam Last Vital Signs Date Time Temp Pulse Resp B/P (MAP) Pulse Ox O2 Delivery O2 Flow Rate FiO2 06/22/17 08:00 98.3 79 18 123/78 96 Nasal Cannula 2.0 06/22/17 07:27 99 Laboratory Tests Test 06/22/17 04:35 White Blood Count 4.5 K/UL (4.8-10.8) L Red Blood Count 4.43 M/UL (4.70-6.10) L Hemoglobin 11.9 G/DL (14.2-18.0) L Hematocrit 37.2 % (42.0-52.0) L Mean Corpuscular Volume 84 FL (80-99) Mean Corpuscular Hemoglobin 26.9 PG (27.0-31.0) L Mean Corpuscular Hemoglobin Concent 32.0 G/DL (32.0-36.0) Red Cell Distribution Width 15.6 % (11.6-14.8) H Platelet Count 109 K/UL (150-450) L Mean Platelet Volume 11.9 FL (6.5-10.1) H Neutrophils (%) (Auto) 59.9 % (45.0-75.0) Lymphocytes (%) (Auto) 20.0 % (20.0-45.0) Monocytes (%) (Auto) 15.4 % (1.0-10.0) H Eosinophils (%) (Auto) 4.1 % (0.0-3.0) H Basophils (%) (Auto) 0.6 % (0.0-2.0) Sodium Level 135 MMOL/L (136-145) L Potassium Level 4.1 MMOL/L (3.5-5.1) Chloride Level 103 MMOL/L (98-107) Carbon Dioxide Level 23 MMOL/L (21-32) Anion Gap 9 (5-15) Blood Urea Nitrogen 18 mg/dL (7-18) Creatinine 0.8 MG/DL (0.55-1.30) Estimat Glomerular Filtration Rate > 60 mL/min (>60) Glucose Level 73 MG/DL (74-106) L Calcium Level 9.8 MG/DL (8.5-10.1) Phosphorus Level 3.1 MG/DL (2.5-4.9) Magnesium Level 1.5 MG/DL (1.8-2.4) L Total Bilirubin 0.5 MG/DL (0.2-1.0) Aspartate Amino Transf (AST/SGOT) 93 U/L (15-37) H Alanine Aminotransferase (ALT/SGPT) 107 U/L (12-78) H Alkaline Phosphatase 77 U/L (46-116) Troponin I 0.033 ng/mL (0.000-0.056) Total Protein 7.5 G/DL (6.4-8.2) Albumin 2.8 G/DL (3.4-5.0) L Globulin 4.7 g/dL Albumin/Globulin Ratio 0.6 (1.0-2.7) L Impression/Recommendations Problems: (1) spastic quadriparesis, verbal unresponciveness (2) Alzheimer's dementia (3) Cachexia (4) LFTs abnormal (5) COPD (chronic obstructive pulmonary disease) Status: unchanged Recommendations # [id number] YESICA COTTON Jun 22, 2017 11:51
[2017-06-22 12:00] VITALS: BP 130/75
[2017-06-22] MEDS: Vancomycin 1gm/D5W 275ml IVPB SCH ×2 (12:22)
--- NOTE | 2017-06-22 13:38 | Pulmonology Progress Note ---
Assessment/Plan Problems: (1) Pneumonia (2) Elevated troponin (3) Schizophrenia (4) COPD (chronic obstructive pulmonary disease) (5) Alzheimer's dementia (6) Feeding by G-tube (7) Cachexia Assessment/Plan improving Troponin negative check cultures continue abx f/u cardio recommendations Subjective ROS Limited/Unobtainable: No Constitutional: Reports: no symptoms HEENT: Repors: no symptoms Allergies: Coded Allergies: No Known Allergies (Unverified , 12/05/15) Objective Last 24 Hour Vital Signs Date Time Temp Pulse Resp B/P (MAP) Pulse Ox O2 Delivery O2 Flow Rate FiO2 06/22/17 12:00 98.5 70 18 130/75 97 Nasal Cannula 2.0 06/22/17 11:38 60 06/22/17 08:00 98.3 79 18 123/78 96 Nasal Cannula 2.0 06/22/17 07:27 72 16 Room Air 99 06/22/17 07:27 62 06/22/17 04:00 78 06/22/17 04:00 98.1 72 18 126/70 100 Nasal Cannula 2.0 06/22/17 00:00 96.4 72 18 101/64 98 Nasal Cannula 2.0 06/21/17 21:25 64 16 Room Air 96 06/21/17 20:00 98.2 77 20 139/72 96 Nasal Cannula 2.0 06/21/17 20:00 80 06/21/17 16:00 62 06/21/17 16:00 97.3 70 20 119/68 100 Nasal Cannula 2.0 Intake and Output 06/22/17 06/23/17 19:00 07:00 Intake Total 155 ml Output Total 600 ml Balance -445 ml IV Total 155 ml Output Urine Total 600 ml General Appearance: WD/WN, no acute distress HEENT: normocephalic Respiratory/Chest: chest wall non-tender, lungs clear Cardiovascular: normal peripheral pulses, normal rate Abdomen: normal bowel sounds, soft, non tender Genitourinary: normal external genitalia Extremities: no cyanosis Skin: no rash Microbiology Date/Time Source Procedure Growth Status 06/21/17 02:55 Blood Blood Culture - Preliminary NO GROWTH AFTER 24 HOURS Resulted 06/21/17 02:50 Blood Blood Culture - Preliminary NO GROWTH AFTER 24 HOURS Resulted Laboratory Tests 06/22/17 04:35: White Blood Count 4.5L, Red Blood Count 4.43L, Hemoglobin 11.9L, Hematocrit 37.2L, Mean Corpuscular Volume 84, Mean Corpuscular Hemoglobin 26.9L, Mean Corpuscular Hemoglobin Concent 32.0, Red Cell Distribution Width 15.6H, Platelet Count 109L, Mean Platelet Volume 11.9H, Neutrophils (%) (Auto) 59.9, Lymphocytes (%) (Auto) 20.0, Monocytes (%) (Auto) 15.4H, Eosinophils (%) (Auto) 4.1H, Basophils (%) (Auto) 0.6, Sodium Level 135L, Potassium Level 4.1, Chloride Level 103, Carbon Dioxide Level 23, Anion Gap 9, Blood Urea Nitrogen 18 , Creatinine 0.8, Estimat Glomerular Filtration Rate > 60, Glucose Level 73L, Calcium Level 9.8, Phosphorus Level 3.1, Magnesium Level 1.5L, Total Bilirubin 0.5, Aspartate Amino Transf (AST/SGOT) 93H, Alanine Aminotransferase (ALT/SGPT) 107H, Alkaline Phosphatase 77, Troponin I 0.033, Total Protein 7.5, Albumin 2.8L , Globulin 4.7, Albumin/Globulin Ratio 0.6L Current Medications Medications (Trade) Dose Ordered Sig/Gloria Route PRN Reason Start Time Stop Time Status Last Admin Dose Admin Acetaminophen (Tylenol) 650 mg Q4H PRN ORAL T>100.5F 06/21/17 07:00 07/21/17 06:59 Al Hydroxide/Mg Hydroxide (Mylanta II) 30 ml Q6H PRN ORAL dyspepsia 06/21/17 07:00 07/21/17 06:59 Albuterol/ Ipratropium (DuoNeb 0.5-3(2.5)mg/3ml) 3 ml Q4H PRN HHN Shortness of Breath 06/21/17 07:00 06/26/17 06:59 Cefepime HCl 1 gm/ Dextrose 55 ml @ 110 mls/hr EVERY 12 HOURS IV 06/21/17 11:00 06/28/17 10:59 06/22/17 10:45 Heparin Sodium (Porcine) (Heparin 5000 units/ml) 5,000 units EVERY 12 HOURS SUBQ 06/21/17 09:00 07/21/17 08:59 06/21/17 20:39 Lorazepam (Ativan) 1 mg Q6H PRN ORAL For Anxiety 06/21/17 07:00 06/28/17 06:59 Midodrine (Pro-Amatine) 5 mg THREE TIMES A DAY ORAL 06/21/17 09:00 07/21/17 08:59 06/22/17 12:29 Nitroglycerin (Ntg) 0.4 mg Q5M PRN SL Prn Chest Pain 06/21/17 07:00 07/21/17 06:59 Olanzapine (ZyPREXA Zydis) 10 mg EVERY 12 HOURS ORAL 06/21/17 09:00 07/21/17 08:59 06/22/17 09:45 Ondansetron HCl (Zofran) 4 mg Q6H PRN IVP Nausea & Vomiting 06/21/17 07:00 07/21/17 06:59 Polyethylene Glycol (Miralax) 17 gm DAILYPRN PRN ORAL Constipation 06/21/17 07:00 07/21/17 06:59 Promethazine HCl/ Codeine (Phenergan with Codeine) 5 ml Q4H PRN ORAL For Cough 06/21/17 07:00 07/21/17 06:59 Temazepam (Restoril) 15 mg HSPRN PRN ORAL Insomnia 06/21/17 21:00 06/28/17 20:59 Vancomycin HCl (Vanco rx to dose) 1 ea DAILY PRN MISC Per rx protocol 06/21/17 07:00 07/21/17 06:59 Vancomycin HCl 1 gm/Dextrose 275 ml @ 183.708 mls/hr Q12HR@1000,2200 IVPB 06/21/17 22:00 06/26/17 21:59 06/22/17 12:22 ALMA LINDO Jun 22, 2017 13:38
--- NOTE | 2017-06-22 14:32 | General Progress Note ---
Assessment/Plan Problem List: (1) UTI (urinary tract infection) ICD Codes: N39.0 - Urinary tract infection, site not specified SNOMED: 41189995 (2) Acute kidney injury superimposed on chronic kidney disease ICD Codes: S37.009A - Unspecified injury of unspecified kidney, initial encounter; N18.9 - Chronic kidney disease, unspecified SNOMED: 73710029 (3) Encounter for PEG (percutaneous endoscopic gastrostomy) ICD Codes: Z43.1 - Encounter for attention to gastrostomy SNOMED: 598996127, 689797964 (4) HCAP (healthcare-associated pneumonia) ICD Codes: J18.9 - Pneumonia, unspecified organism SNOMED: 610101082 (5) Encephalopathy ICD Codes: G93.40 - Encephalopathy, unspecified SNOMED: 73076175, 159920350 (6) COPD (chronic obstructive pulmonary disease) ICD Codes: J44.9 - Chronic obstructive pulmonary disease, unspecified SNOMED: 75301590 (7) Cachexia ICD Codes: R64 - Cachexia SNOMED: 995458556 (8) Schizophrenia ICD Codes: F20.9 - Schizophrenia, unspecified SNOMED: 74116213 (9) Feeding by G-tube ICD Codes: Z93.1 - Gastrostomy status SNOMED: 299147216, 902305589 (10) Pneumonia ICD Codes: J18.9 - Pneumonia, unspecified organism SNOMED: 026854342 Qualifiers: Qualified Codes: J18.9 - Pneumonia, unspecified organism Status: stable, progressing Assessment/Plan o2, pulm tx abx ot pt diet cbc bmp am Subjective Constitutional: Reports: weakness Allergies: Coded Allergies: No Known Allergies (Unverified , 12/05/15) All Systems: reviewed and negative except above Subjective o2nc sleepy Objective Last 24 Hour Vital Signs Date Time Temp Pulse Resp B/P (MAP) Pulse Ox O2 Delivery O2 Flow Rate FiO2 06/22/17 12:00 98.5 70 18 130/75 97 Nasal Cannula 2.0 06/22/17 11:38 60 06/22/17 08:00 98.3 79 18 123/78 96 Nasal Cannula 2.0 06/22/17 07:27 72 16 Room Air 99 06/22/17 07:27 62 06/22/17 04:00 78 06/22/17 04:00 98.1 72 18 126/70 100 Nasal Cannula 2.0 06/22/17 00:00 96.4 72 18 101/64 98 Nasal Cannula 2.0 06/21/17 21:25 64 16 Room Air 96 06/21/17 20:00 98.2 77 20 139/72 96 Nasal Cannula 2.0 06/21/17 20:00 80 06/21/17 16:00 62 06/21/17 16:00 97.3 70 20 119/68 100 Nasal Cannula 2.0 Intake and Output 06/22/17 06/23/17 19:00 07:00 Intake Total 430.000 ml Output Total 600 ml Balance -170.000 ml IV Total 430.000 ml Output Urine Total 600 ml Laboratory Tests 06/22/17 04:35: White Blood Count 4.5L, Red Blood Count 4.43L, Hemoglobin 11.9L, Hematocrit 37.2L, Mean Corpuscular Volume 84, Mean Corpuscular Hemoglobin 26.9L, Mean Corpuscular Hemoglobin Concent 32.0, Red Cell Distribution Width 15.6H, Platelet Count 109L, Mean Platelet Volume 11.9H, Neutrophils (%) (Auto) 59.9, Lymphocytes (%) (Auto) 20.0, Monocytes (%) (Auto) 15.4H, Eosinophils (%) (Auto) 4.1H, Basophils (%) (Auto) 0.6, Sodium Level 135L, Potassium Level 4.1, Chloride Level 103, Carbon Dioxide Level 23, Anion Gap 9, Blood Urea Nitrogen 18 , Creatinine 0.8, Estimat Glomerular Filtration Rate > 60, Glucose Level 73L, Calcium Level 9.8, Phosphorus Level 3.1, Magnesium Level 1.5L, Total Bilirubin 0.5, Aspartate Amino Transf (AST/SGOT) 93H, Alanine Aminotransferase (ALT/SGPT) 107H, Alkaline Phosphatase 77, Troponin I 0.033, Total Protein 7.5, Albumin 2.8L , Globulin 4.7, Albumin/Globulin Ratio 0.6L Height (Feet): 6 Height (Inches): 1.00 Weight (Pounds): 180 General Appearance: lethargic EENT: normal ENT inspection Neck: normal alignment Cardiovascular: normal peripheral pulses, normal rate, regular rhythm Respiratory/Chest: chest wall non-tender, lungs clear, normal breath sounds Abdomen: normal bowel sounds, non tender, soft Extremities: normal inspection Edema: no edema noted Arm (L), no edema noted Arm (R), no edema noted Leg (L), no edema noted Leg (R), no edema noted Pedal (L), no edema noted Pedal (R), no edema noted Generalized Neurologic: motor weakness Skin: normal pigmentation, warm/dry Objective bl hip and knee contracture ALONDRA SINGH Jun 22, 2017 14:32
[2017-06-22 16:00] VITALS: BP 122/71
--- NOTE | 2017-06-22 16:09 | Diagnostic Imaging Report ---
Indications: Altered mental status Technique: Spiral acquisitions obtained through the brain. Angled axial and coronal 5 x 5 mm slices were reconstructed. Total dose length product 1390 mGycm. CTDI vol(s) 70 mGy. Dose reduction achieved using automated exposure control Comparison: None Findings: There is generalized enlargement of the ventricles and extra-axial CSF spaces. Ventriculomegaly in particular involves the third and lateral ventricles. There is periventricular deep white matter chronic ischemic change. No acute hemorrhage or edema. No mass effect nor midline shift. Otherwise normal obrien-white differentiation. Intact calvarium. Visualized orbits and sinuses are unremarkable. Impression: Chronic and age-related changes. Ventriculomegaly, presumably on the basis of central cerebral volume loss, component of hydrocephalus not completely excludable. Correlate with clinical findings Negative for acute intracranial bleed or mass effect. The CT scanner at [facility] is accredited by the [employer] and the scans are performed using protocols designed to limit radiation exposure to as low as reasonably achievable to attain images of sufficient resolution adequate for diagnostic evaluation.
--- NOTE | 2017-06-22 16:49 | GI Initial Consult Note ---
Carver,Beth Wilver N.P. 06/22/17 1649: History of Present Illness General Date patient seen: Jun 22, 2017 Time patient seen: 11:00 Reason for Hospitalization: Dyspnea/Respdistress Referring physician: Dr. Rangel Reason for Consultation: GTUBE SITE BLEED Present Illness HPI Pneumonia, shortness of breath, altered mental status. This is a 66-year-old male from [facility] presented with above-mentioned diagnosis, currently calm, confused in bed, contracted, not talking much. GI consulted for GT site bleed. HPI as noted above. ROS limited, patient seen on floor awake, alert NAD with no active s/sx of N/V/D with noted general contractures. This patient originally admitted back in december s/p PEG placement now presents today with bleeding around the site. Labs show anemia and hypoalbuminemia. Home Meds Reported Medications Warfarin Sod* (WARFARIN SOD*) 2.5 Mg Tablet, 2.5 MG ORAL DAILY, TAB 06/21/17 Ondansetron* (ZOFRAN*) 4 Mg Tablet, 4 MG ORAL Q6H Y for Nausea & Vomiting, TAB 01/18/17 Al Hydroxide/mg Hydroxide (Mag-Al Plus Suspension) 30 Ml Oral.susp, 30 ML GT Q6HR Y for Abdominal cramps, ML 01/18/17 Warfarin Sod* (COUMADIN*) 3 Mg Tablet, 3 MG ORAL DAILY, TAB 01/18/17 Vancomycin Hcl (Vancomycin) 1 Gm Vial, 1.25 GM IV Q24H, VIAL 01/18/17 Polyethylene Glycol 3350* (MIRALAX*) 17 Gm Powd.pack, 17 GM GT DAILY Y for Constipation, PACKET 01/18/17 Inmbtdomgyuc-Zueg-Ncjevpnr,Iso (ZOSYN 3.375 GM PRE MIX-BAG) 3.375 Gm/50 Ml Froz.piggy, 3.375 GM IVPB EVERY 8 HOURS, BAG 01/18/17 Olanzapine* (ZYPREXA*) 10 Mg Tablet, 10 MG GT BID, #30 TAB 0 Refills 01/18/17 Lorazepam* (ATIVAN*) 1 Mg Tablet, 1 MG ORAL Q6HR Y for For Anxiety, TAB 01/18/17 Ipratropium/Albuterol Sulfate (DuoNeb 0.5-3(2.5)mg/3ml) 3 Ml Ampul.neb, 3 ML HHN Q4HR Y for Shortness of Breath, EA 01/18/17 Famotidine (PEPCID) 20 Mg Tablet, 20 MG ORAL Q12HR, #7 TAB 0 Refills 01/18/17 Temazepam* (RESTORIL*) 15 Mg Capsule, 15 MG ORAL BEDTIME Y for Insomnia, CAP 12/29/16 Nitroglycerin (NITROGLYCERIN) 0.4 Mg Tab.subl, 0.4 MG SL Y for Prn Chest Pain, TAB 12/29/16 Codeine/Promethazine Hcl* (PROMETHAZINE-CODEINE SYRUP*) 118 Ml Syrup, 5 ML ORAL Q4H Y for For Cough, ML 0 Refills 12/29/16 Acetaminophen (Tylenol) 325 Mg Tablet, 325 MG ORAL Q4HR Y for For Pain, #30 TAB 0 Refills 12/29/16 Midodrine* (PROAMATINE*) 5 Mg Tablet, 5 MG ORAL THREE TIMES A DAY, TAB 12/20/16 Med list reviewed/reconciled: Yes Allergies: Coded Allergies: No Known Allergies (Unverified , 12/05/15) Patient History Limited by: medical condition History Provided By: Medical Record PMH Narrative Altered mental status, DVT, MAR, COPD, Alzheimer, schizophrenia. PAST SURGICAL HISTORY: G-tube. Review of Systems All Other Systems: limited Physical Exam Vital Signs Date Time Temp Pulse Resp B/P (MAP) Pulse Ox O2 Delivery O2 Flow Rate FiO2 06/21/17 02:08 97.5 82 21 105/62 97 Simple Mask 6.0 06/21/17 02:23 97 Sp02 EP Interpretation: reviewed Labs Laboratory Tests Test 06/22/17 04:35 White Blood Count 4.5 K/UL (4.8-10.8) L Red Blood Count 4.43 M/UL (4.70-6.10) L Hemoglobin 11.9 G/DL (14.2-18.0) L Hematocrit 37.2 % (42.0-52.0) L Mean Corpuscular Volume 84 FL (80-99) Mean Corpuscular Hemoglobin 26.9 PG (27.0-31.0) L Mean Corpuscular Hemoglobin Concent 32.0 G/DL (32.0-36.0) Red Cell Distribution Width 15.6 % (11.6-14.8) H Platelet Count 109 K/UL (150-450) L Mean Platelet Volume 11.9 FL (6.5-10.1) H Neutrophils (%) (Auto) 59.9 % (45.0-75.0) Lymphocytes (%) (Auto) 20.0 % (20.0-45.0) Monocytes (%) (Auto) 15.4 % (1.0-10.0) H Eosinophils (%) (Auto) 4.1 % (0.0-3.0) H Basophils (%) (Auto) 0.6 % (0.0-2.0) Sodium Level 135 MMOL/L (136-145) L Potassium Level 4.1 MMOL/L (3.5-5.1) Chloride Level 103 MMOL/L (98-107) Carbon Dioxide Level 23 MMOL/L (21-32) Anion Gap 9 (5-15) Blood Urea Nitrogen 18 mg/dL (7-18) Creatinine 0.8 MG/DL (0.55-1.30) Estimat Glomerular Filtration Rate > 60 mL/min (>60) Glucose Level 73 MG/DL (74-106) L Calcium Level 9.8 MG/DL (8.5-10.1) Phosphorus Level 3.1 MG/DL (2.5-4.9) Magnesium Level 1.5 MG/DL (1.8-2.4) L Total Bilirubin 0.5 MG/DL (0.2-1.0) Aspartate Amino Transf (AST/SGOT) 93 U/L (15-37) H Alanine Aminotransferase (ALT/SGPT) 107 U/L (12-78) H Alkaline Phosphatase 77 U/L (46-116) Troponin I 0.033 ng/mL (0.000-0.056) Total Protein 7.5 G/DL (6.4-8.2) Albumin 2.8 G/DL (3.4-5.0) L Globulin 4.7 g/dL Albumin/Globulin Ratio 0.6 (1.0-2.7) L General Appearance: well appearing, no apparent distress, thin Head: normocephalic EENT: normal ENT inspection Neck: supple Respiratory: normal breath sounds, no respiratory distress Cardiovascular: normal rate Gastrointestinal: normal inspection, non tender, soft Rectal: deferred Musculoskeletal: back normal Neurologic: alert Psychiatric: normal inspection, judgement/insight normal Skin: normal inspection, normal color, no rash Lymphatic: normal inspection, no adenopathy Current Medications Current Medications Medications (Trade) Dose Ordered Sig/Gloria Route PRN Reason Start Time Stop Time Status Last Admin Dose Admin Acetaminophen (Tylenol) 650 mg Q4H PRN ORAL T>100.5F 06/21/17 07:00 07/21/17 06:59 Al Hydroxide/Mg Hydroxide (Mylanta II) 30 ml Q6H PRN ORAL dyspepsia 06/21/17 07:00 07/21/17 06:59 Albuterol/ Ipratropium (DuoNeb 0.5-3(2.5)mg/3ml) 3 ml Q4H PRN HHN Shortness of Breath 06/21/17 07:00 06/26/17 06:59 Cefepime HCl 1 gm/ Dextrose 55 ml @ 110 mls/hr EVERY 12 HOURS IV 06/21/17 11:00 06/28/17 10:59 06/22/17 10:45 Heparin Sodium (Porcine) (Heparin 5000 units/ml) 5,000 units EVERY 12 HOURS SUBQ 06/21/17 09:00 07/21/17 08:59 06/21/17 20:39 Lorazepam (Ativan) 1 mg Q6H PRN ORAL For Anxiety 06/21/17 07:00 06/28/17 06:59 Midodrine (Pro-Amatine) 5 mg THREE TIMES A DAY ORAL 06/21/17 09:00 07/21/17 08:59 06/22/17 12:29 Nitroglycerin (Ntg) 0.4 mg Q5M PRN SL Prn Chest Pain 06/21/17 07:00 07/21/17 06:59 Olanzapine (ZyPREXA Zydis) 10 mg EVERY 12 HOURS ORAL 06/21/17 09:00 07/21/17 08:59 06/22/17 09:45 Ondansetron HCl (Zofran) 4 mg Q6H PRN IVP Nausea & Vomiting 06/21/17 07:00 07/21/17 06:59 Polyethylene Glycol (Miralax) 17 gm DAILYPRN PRN ORAL Constipation 06/21/17 07:00 07/21/17 06:59 Promethazine HCl/ Codeine (Phenergan with Codeine) 5 ml Q4H PRN ORAL For Cough 06/21/17 07:00 07/21/17 06:59 Temazepam (Restoril) 15 mg HSPRN PRN ORAL Insomnia 06/21/17 21:00 06/28/17 20:59 Vancomycin HCl (Vanco rx to dose) 1 ea DAILY PRN MISC Per rx protocol 06/21/17 07:00 07/21/17 06:59 Vancomycin HCl 1 gm/Dextrose 275 ml @ 183.708 mls/hr Q12HR@1000,2200 IVPB 06/21/17 22:00 06/26/17 21:59 06/22/17 12:22 GI: Plan Problems: (1) Bleeding from gastrostomy tube site (2) Dysphagia (3) Feeding by G-tube (4) Anemia Plan GT site care BID/prn - clean with NS, place gauze under retention ring then clamp. okay to start GTFs per dietary anemia work up OB stool r/o GI bleed Prevacid GT fu labs Discussed with Dr. Delaney. Thank you for this patient referral, we will follow. FRITZ DELANEY 06/23/17 0927: History of Present Illness General Reason for Hospitalization: Dyspnea/Respdistress Present Illness Home Meds Reported Medications Warfarin Sod* (WARFARIN SOD*) 2.5 Mg Tablet, 2.5 MG ORAL DAILY, TAB 06/21/17 Ondansetron* (ZOFRAN*) 4 Mg Tablet, 4 MG ORAL Q6H Y for Nausea & Vomiting, TAB 01/18/17 Al Hydroxide/mg Hydroxide (Mag-Al Plus Suspension) 30 Ml Oral.susp, 30 ML GT Q6HR Y for Abdominal cramps, ML 01/18/17 Warfarin Sod* (COUMADIN*) 3 Mg Tablet, 3 MG ORAL DAILY, TAB 01/18/17 Vancomycin Hcl (Vancomycin) 1 Gm Vial, 1.25 GM IV Q24H, VIAL 01/18/17 Polyethylene Glycol 3350* (MIRALAX*) 17 Gm Powd.pack, 17 GM GT DAILY Y for Constipation, PACKET 01/18/17 Cxnubibibvjh-Eeun-Viwmeukc,Iso (ZOSYN 3.375 GM PRE MIX-BAG) 3.375 Gm/50 Ml Froz.piggy, 3.375 GM IVPB EVERY 8 HOURS, BAG 01/18/17 Olanzapine* (ZYPREXA*) 10 Mg Tablet, 10 MG GT BID, #30 TAB 0 Refills 01/18/17 Lorazepam* (ATIVAN*) 1 Mg Tablet, 1 MG ORAL Q6HR Y for For Anxiety, TAB 01/18/17 Ipratropium/Albuterol Sulfate (DuoNeb 0.5-3(2.5)mg/3ml) 3 Ml Ampul.neb, 3 ML HHN Q4HR Y for Shortness of Breath, EA 01/18/17 Famotidine (PEPCID) 20 Mg Tablet, 20 MG ORAL Q12HR, #7 TAB 0 Refills 01/18/17 Temazepam* (RESTORIL*) 15 Mg Capsule, 15 MG ORAL BEDTIME Y for Insomnia, CAP 12/29/16 Nitroglycerin (NITROGLYCERIN) 0.4 Mg Tab.subl, 0.4 MG SL Y for Prn Chest Pain, TAB 12/29/16 Codeine/Promethazine Hcl* (PROMETHAZINE-CODEINE SYRUP*) 118 Ml Syrup, 5 ML ORAL Q4H Y for For Cough, ML 0 Refills 12/29/16 Acetaminophen (Tylenol) 325 Mg Tablet, 325 MG ORAL Q4HR Y for For Pain, #30 TAB 0 Refills 12/29/16 Midodrine* (PROAMATINE*) 5 Mg Tablet, 5 MG ORAL THREE TIMES A DAY, TAB 12/20/16 Allergies: Coded Allergies: No Known Allergies (Unverified , 12/05/15) GI: Plan Plan The patient was seen and examined at bedside and all new and available data was reviewed in the patients chart. I agree with the above findings, impression and plan. (Patient seen earlier today. Signature stamp does not reflect patient encounter time.). - MD Wen Orozco,[facility] Wilver N.PMaximo Jun 22, 2017 16:49 FRITZ DELANEY Jun 23, 2017 09:27
[2017-06-22 20:00] VITALS: BP 109/65
--- NOTE | 2017-06-22 21:00 | Consultation ---
DATE OF CONSULTATION: 06/22/2017 NEUROLOGICAL CONSULTATION CONSULTING PHYSICIAN: Margarito Gil M.D. REQUESTING PHYSICIAN: Johan Rangel D.O. HISTORY OF PRESENT ILLNESS: This is a 66-year-old resident of a nursing facility, brought to this hospital for assessment of pneumonia. The patient was noted to be nonverbal and nonresponsive and Neurology consult was requested. Apparently, the patient had a history of progressive difficulty with ambulation for the last one or two days. The chest x-ray given prior to admission is displaying signs of pneumonia. The patient was encephalopathic and was unable to provide with information. His vital signs on admission included blood pressure 105/62, heart rate of 92, and temperature 97.5 degrees. His initial diagnostic studies included CBC, which was unremarkable. Chemistry panel with elevated AST 102, ALT 128, and CPK of 370. Elevated troponin 0.129 and BNP is 265. Elevated total protein of 9.0. BUN of 23 and sodium 133. Urinalysis, 15 to 20 RBCs, 1+ leukocyte esterase, and 1+ protein. Chest x-ray revealed elevation of left hemidiaphragm and atelectasis of left lung. PAST MEDICAL HISTORY: The patient is unable to provide with any information. This was obtained possibly from medical records. Apparently, the patient has been seen at least five times within the last two years at this hospital. He was described as a baseline being able to talk, but oriented x1 only, with spastic paraparesis. He has a history of PEG placement, respiratory insufficiency, renal insufficiency, history of schizophrenia, history of DVT of lower extremities, and Alzheimer dementia. MEDICATIONS: Following admission, the patient was placed on IV fluids, antibiotics, given supplemental magnesium and subcutaneous heparin. He is on olanzapine 10 mg b.i.d., Zofran and Restoril. His treatment prior to admission also included warfarin, temazepam, Zyprexa, Zofran, lorazepam, midodrine, Pepcid and Tylenol as needed. ALLERGIES: None reported. FAMILY HISTORY: Unavailable. REVIEW OF SYSTEMS: Unable to obtain due to the patient's status. PHYSICAL EXAMINATION: GENERAL: This is a well developed, but ill-appearing cachectic elderly man who appears to be awake with a brief eye contact. VITAL SIGNS: Stable. Blood pressure /79, temperature 98.3 degrees, and pulse oximetry 96%. HEENT: Head, normocephalic. There is no evidence of trauma. Eyes, ears, and throat are clear. NECK: Rigid in all directions. MUSCULOSKELETAL: Remarkable for contracted both upper lower extremities. Peripheral pulses 1+ and symmetric. MENTAL STATUS: The patient is alert. He has a brief eye contact. He does not follow commands. Remained nonverbal. Grimacing when stimulated. CRANIAL NERVE II: Pupils both responding to light and accommodation. Extraocular movement full range. CRANIAL NERVE V: Normal corneal responses. CRANIAL NERVE VII: No facial asymmetry. CRANIAL NERVE VIII: Probably normal. CRANIAL NERVES IX THROUGH XII: Reduced gag response. MOTOR: Revealed severe spastic with flexor contracture of both arms and both legs. Unable to straighten up arms or legs. Deep tendon reflexes absent bilaterally. Plantar response is mute. SENSORY: No response to pin stimulation. IMPRESSION: 1. 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 Rule out advanced Alzheimer disease. Rule out multiple strokes. Rule out an extensive ischemic vascular disease with multiple strokes. Rule out hydrocephalus. 2. History of chronic psychiatric disorder. 3. Abnormal liver enzymes. 4. Rule out pneumonia. 5. Chronic obstructive pulmonary disease. RECOMMENDATIONS: 1. Hold all sedating medications. 2. Get a CT of the brain without contrast for baseline. None of them done within the last two years. 3. Continue with the current treatment, IV fluids, and antibiotics. 4. Address the issue of abnormal liver enzymes as per attending. Thank you for allowing me to see this interesting patient in neurological consultation. Margarito Gil M.D. DR: NEVILLE JOB#: [id number] CC:
--- NOTE | 2017-06-22 23:04 | Cardiology Report ---
APPROVED REPORT EKG Measurement Heart [id number] MI [id number] Normal sinus rhythm Normal ECG
[2017-06-23] VITALS: BP 105/63
[2017-06-23] MEDS ORDERED: Vancomycin 750mg/D5W 275ml IVPB SCH ×2 (02:00)
[2017-06-23 04:00] VITALS: BP 114/74
--- NOTE | 2017-06-23 07:15 | Nephrology Progress Note ---
Assessment/Plan Assessment 1.hypovolemic hyponatremia 2. Proteinuria. 3. Hematuria. 4. Pneumonia. 5. Malnutrition. 6.hypomagnesemia Plan plan to continue current med replace mg monitoring renal function avoid any NSAID check in and out put closely Subjective Subjective in NAD no events Objective Objective Last 24 Hour Vital Signs Date Time Temp Pulse Resp B/P (MAP) Pulse Ox O2 Delivery O2 Flow Rate FiO2 06/23/17 04:00 97.0 65 18 114/74 100 Nasal Cannula 2.0 06/23/17 00:00 58 06/23/17 00:00 96.1 52 18 105/63 95 Nasal Cannula 2.0 06/22/17 20:06 62 16 Room Air 99 06/22/17 20:00 61 06/22/17 20:00 97.1 61 18 109/65 95 Nasal Cannula 2.0 06/22/17 16:00 97.5 66 18 122/71 96 Nasal Cannula 2.0 06/22/17 15:22 69 06/22/17 12:00 98.5 70 18 130/75 97 Nasal Cannula 2.0 06/22/17 11:38 60 06/22/17 08:00 98.3 79 18 123/78 96 Nasal Cannula 2.0 06/22/17 07:27 72 16 Room Air 99 06/22/17 07:27 62 Laboratory Tests 06/22/17 21:30: Vancomycin Level Trough 23.5H 06/23/17 06:30: Reticulocyte Count [Pending], Sodium Level [Pending], Potassium Level [Pending] , Chloride Level [Pending], Carbon Dioxide Level [Pending], Blood Urea Nitrogen [Pending], Creatinine [Pending], Estimat Glomerular Filtration Rate [Pending], Glucose Level [Pending], Calcium Level [Pending], Iron Level [Pending], Unsaturated Iron Binding [Pending], Ferritin [Pending], Total Bilirubin [Pending ], Aspartate Amino Transf (AST/SGOT) [Pending], Alanine Aminotransferase (ALT/ SGPT) [Pending], Alkaline Phosphatase [Pending], Troponin I [Pending], Pro-B- Type Natriuretic Peptide [Pending], Total Protein [Pending], Albumin [Pending], Globulin [Pending], Carcinoembryonic Antigen [Pending], Vitamin B12 Level [ Pending], Folate [Pending], Thyroid Stimulating Hormone (TSH) [Pending], Free Thyroxine [Pending] Height (Feet): 6 Height (Inches): 1.00 Weight (Pounds): 180 Objective HEAD AND NECK: No JVP. No LAD. No thyromegaly. Extraocular movements intact. Pupils are reactive to light and accommodation. LUNGS: Clear to auscultation. CARDIAC: Regular rate and rhythm. S1 and S2. No murmur. No rub. ABDOMEN: Soft, nontender, and nondistended. EXTREMITIES: No edema, clubbing, or cyanosis BARTOLOME OVALLES Jun 23, 2017 07:15
[2017-06-23 07:24] LABS: MEAN CORPUSCULAR HEMOGLOBIN 27.4 PG (27.0-31.0); MEAN CORPUSCULAR HGB CONC 32.8 G/DL (32.0-36.0); MEAN CORPUSCULAR VOLUME 84 FL (80-99); MEAN PLATELET VOLUME 12.9 FL (6.5-10.1); PLATELET COUNT 110 K/UL (150-450); RED CELL DISTRIBUTION WIDTH 15.6 % (11.6-14.8); WHITE BLOOD COUNT 3.2 K/UL (4.8-10.8)
[2017-06-23 07:49] LABS: IRON 48 ug/dL (50-175); TOTAL IRON BINDING CAPACITY 327 ug/dL (250-450)
[2017-06-23 07:53] LABS: ALANINE AMINOTRANSFERASE 126 U/L (12-78); ALBUMIN/GLOBULIN RATIO 0.6 (1.0-2.7); ANION GAP 7 (5-15); ASPARTATE AMINO TRANSFERASE 121 U/L (15-37); CALCIUM 9.5 MG/DL (8.5-10.1); CARBON DIOXIDE 26 MMOL/L (21-32); CHLORIDE 104 MMOL/L (98-107); CREATININE 0.7 MG/DL (0.55-1.30); GLOMERULAR FILTRATION RATE > 60 mL/min (>60); POTASSIUM 3.3 MMOL/L (3.5-5.1); SODIUM 137 MMOL/L (136-145); TOTAL PROTEIN 7.7 G/DL (6.4-8.2)
--- NOTE | 2017-06-23 07:55 | Cardiology Report ---
APPROVED REPORT EXAM: Two-dimensional and M-mode echocardiogram with Doppler and color Doppler. INDICATION Acute TX M-Mode DIMENSIONS IVSd1.1 (0.7-1.1cm)Left Atrium (MM)2.6 (1.6-4.0cm) LVDd3.6 (3.5-5.6cm)Aortic Root3.1 (2.0-3.7cm) PWd0.7 (0.7-1.1cm)Aortic Cusp Exc.1.9 (1.5-2.0cm) LVDs2.1 (2.5-4.0cm) PWs1.4 cm Technically difficult study due to poor acoustical windows. Study quality precludes accurate assessment of regional wall motion. Normal left ventricular chamber size, systolic function and wall motion. Left ventricular ejection fraction estimated to be 55 %. No evidence of left ventricular hypertrophy. No evidence of pericardial effusion. All other cardiac chamber sizes are within normal limits. Mild focal aortic valve sclerosis with adequate cusp excursion. Mildly thickened mitral valve leaflets with normal excursion. Mild mitral annulus and aortic root calcification. Pulmonic valve not well visualized. Normal tricuspid valve structure. Subcostal views not obtainable. A color flow and spectral Doppler study was performed and revealed: Moderate aortic insufficiency. No mitral regurgitation. reduced left ventricular relaxation c/w mild diastolic dysfunction. No tricuspid regurgitation. No pulmonic regurgitation present.
[2017-06-23 08:00] VITALS: BP 96/60
[2017-06-23 08:03] LABS: FERRITIN 59 NG/ML (8-388); THYROID STIMULATING HORMONE 1.997 uiU/mL (0.360-3.740)
[2017-06-23] MEDS: Vancomycin 1gm/D5W 275ml IVPB SCH ×2 (08:08)
[2017-06-23] MEDS: ZyPREXA Zydis 10mg tab ORAL SCH ×2 (08:19→21:04)
[2017-06-23] MEDS: Cefepime HCl 1 GM in D5W 55 ML IV SCH ×2 (08:20→21:04)
[2017-06-23 08:31] LABS: FOLIC ACID > 20.0 NG/ML (3.1-17.5)
[2017-06-23] MEDS: Heparin 5000 units/ml inj SUBQ SCH ×2 (09:00→20:49)
[2017-06-23 10:16] LABS: BAND NEUTROPHILS % (MANUAL) 0 % (0-8); BASOPHILS % (MANUAL) 0 % (0-2); EOSINOPHILS % (MANUAL) 7 % (0-3); LYMPHOCYTES % (MANUAL) 39 % (20-45); NEUTROPHILS % (MANUAL) 34 % (45-75); PLATELET ESTIMATE DECREASED; PLATELET MORPHOLOGY NORMAL; TOTAL CELLS COUNTED 100
--- NOTE | 2017-06-23 10:32 | Pulmonology Progress Note ---
Assessment/Plan Problems: (1) Pneumonia (2) Elevated troponin (3) Schizophrenia (4) COPD (chronic obstructive pulmonary disease) (5) Alzheimer's dementia (6) Feeding by G-tube (7) Cachexia Assessment/Plan improving Troponin negative check cultures continue abx f/u cardio recommendations continue abx med/surg cxr in am Subjective ROS Limited/Unobtainable: No Constitutional: Reports: no symptoms HEENT: Repors: no symptoms Respiratory: Reports: no symptoms Allergies: Coded Allergies: No Known Allergies (Unverified , 12/05/15) Objective Last 24 Hour Vital Signs Date Time Temp Pulse Resp B/P (MAP) Pulse Ox O2 Delivery O2 Flow Rate FiO2 06/23/17 08:03 88 06/23/17 08:00 97.5 62 19 96/60 94 Nasal Cannula 2.0 06/23/17 04:00 58 06/23/17 04:00 97.0 65 18 114/74 100 Nasal Cannula 2.0 06/23/17 00:00 58 06/23/17 00:00 96.1 52 18 105/63 95 Nasal Cannula 2.0 06/22/17 20:06 62 16 Room Air 99 06/22/17 20:00 61 06/22/17 20:00 97.1 61 18 109/65 95 Nasal Cannula 2.0 06/22/17 16:00 97.5 66 18 122/71 96 Nasal Cannula 2.0 06/22/17 15:22 69 06/22/17 12:00 98.5 70 18 130/75 97 Nasal Cannula 2.0 06/22/17 11:38 60 Intake and Output 06/23/17 06/24/17 19:00 07:00 Intake Total 180 ml Balance 180 ml Free Water 150 ml Tube Feeding 30 ml General Appearance: cachetic HEENT: normocephalic, atraumatic, anicteric Respiratory/Chest: chest wall non-tender, lungs clear Cardiovascular: normal peripheral pulses, normal rate Abdomen: normal bowel sounds, soft, non tender Genitourinary: normal external genitalia Extremities: no clubbing Skin: no rash Neurologic/Psychiatric: label fuser tender II-XII grossly normal Lymphatic: no groin adenopathy Microbiology Date/Time Source Procedure Growth Status 06/21/17 02:55 Blood Blood Culture - Preliminary NO GROWTH AFTER 48 HOURS Resulted 06/21/17 02:50 Blood Blood Culture - Preliminary NO GROWTH AFTER 48 HOURS Resulted Laboratory Tests 06/22/17 21:30: Vancomycin Level Trough 23.5H 06/23/17 06:30: White Blood Count 3.2L, Red Blood Count 4.50L, Hemoglobin 12.3L, Hematocrit 37.6L, Mean Corpuscular Volume 84, Mean Corpuscular Hemoglobin 27.4, Mean Corpuscular Hemoglobin Concent 32.8, Red Cell Distribution Width 15.6H, Platelet Count 110L, Mean Platelet Volume 12.9H, Neutrophils (%) (Auto) , Lymphocytes (%) (Auto) , Monocytes (%) (Auto) , Eosinophils (%) (Auto) , Basophils (%) (Auto) , Differential Total Cells Counted 100, Neutrophils % ( Manual) 34L, Lymphocytes % (Manual) 39, Monocytes % (Manual) 20H, Eosinophils % (Manual) 7H, Basophils % (Manual) 0, Band Neutrophils 0, Platelet Estimate DecreasedL, Platelet Morphology Normal, Reticulocyte Count [Pending], Sodium Level 137, Potassium Level 3.3L, Chloride Level 104, Carbon Dioxide Level 26, Anion Gap 7, Blood Urea Nitrogen 16, Creatinine 0.7, Estimat Glomerular Filtration Rate > 60, Glucose Level 101, Calcium Level 9.5, Iron Level 48L, Total Iron Binding Capacity 327, Percent Iron Saturation 15, Unsaturated Iron Binding 279, Ferritin 59, Total Bilirubin 0.4, Aspartate Amino Transf (AST/SGOT ) 121H, Alanine Aminotransferase (ALT/SGPT) 126H, Alkaline Phosphatase 74, Troponin I 0.016, Pro-B-Type Natriuretic Peptide 75, Total Protein 7.7, Albumin 2.8L, Globulin 4.9, Albumin/Globulin Ratio 0.6L, Carcinoembryonic Antigen [ Pending], Vitamin B12 Level 1491H, Folate > 20.0H, Thyroid Stimulating Hormone ( TSH) 1.997, Free Thyroxine 1.17 Current Medications Medications (Trade) Dose Ordered Sig/Gloria Route PRN Reason Start Time Stop Time Status Last Admin Dose Admin Acetaminophen (Tylenol) 650 mg Q4H PRN ORAL T>100.5F 06/21/17 07:00 07/21/17 06:59 Al Hydroxide/Mg Hydroxide (Mylanta II) 30 ml Q6H PRN ORAL dyspepsia 06/21/17 07:00 07/21/17 06:59 Albuterol/ Ipratropium (DuoNeb 0.5-3(2.5)mg/3ml) 3 ml Q4H PRN HHN Shortness of Breath 06/21/17 07:00 06/26/17 06:59 Cefepime HCl 1 gm/ Dextrose 55 ml @ 110 mls/hr EVERY 12 HOURS IV 06/21/17 11:00 06/28/17 10:59 06/23/17 08:20 Heparin Sodium (Porcine) (Heparin 5000 units/ml) 5,000 units EVERY 12 HOURS SUBQ 06/21/17 09:00 07/21/17 08:59 06/21/17 20:39 Lorazepam (Ativan) 1 mg Q6H PRN ORAL For Anxiety 06/21/17 07:00 06/28/17 06:59 Midodrine (Pro-Amatine) 5 mg THREE TIMES A DAY ORAL 06/21/17 09:00 07/21/17 08:59 06/23/17 08:20 Nitroglycerin (Ntg) 0.4 mg Q5M PRN SL Prn Chest Pain 06/21/17 07:00 07/21/17 06:59 Olanzapine (ZyPREXA Zydis) 10 mg EVERY 12 HOURS ORAL 06/21/17 09:00 07/21/17 08:59 06/23/17 08:19 Ondansetron HCl (Zofran) 4 mg Q6H PRN IVP Nausea & Vomiting 06/21/17 07:00 07/21/17 06:59 Polyethylene Glycol (Miralax) 17 gm DAILYPRN PRN ORAL Constipation 06/21/17 07:00 07/21/17 06:59 Promethazine HCl/ Codeine (Phenergan with Codeine) 5 ml Q4H PRN ORAL For Cough 06/21/17 07:00 07/21/17 06:59 Temazepam (Restoril) 15 mg HSPRN PRN ORAL Insomnia 06/21/17 21:00 06/28/17 20:59 Vancomycin HCl (Vanco rx to dose) 1 ea DAILY PRN MISC Per rx protocol 06/21/17 07:00 07/21/17 06:59 Vancomycin/Sodium Chloride 250 ml @ 166.667 mls/hr Q12HR@0200,1400 IVPB 06/23/17 14:00 06/28/17 13:59 ALMA LINDO Jun 23, 2017 10:32
[2017-06-23] MEDS ORDERED: KCl 10% 40mEq/30ml liquid GT ONE (10:45)
[2017-06-23 12:05] VITALS: BP 111/71
--- NOTE | 2017-06-23 12:07 | GI Progress Note ---
Assessment/Plan Problems: (1) Bleeding from gastrostomy tube site ICD Codes: K94.21 - Gastrostomy hemorrhage SNOMED: 655663994 (2) Dysphagia ICD Codes: R13.10 - Dysphagia, unspecified SNOMED: 10982773, 425489974 (3) Anemia ICD Codes: D64.9 - Anemia, unspecified SNOMED: 384500490 (4) Alzheimer's dementia ICD Codes: G30.9 - Alzheimer's disease, unspecified SNOMED: 74597991 (5) Feeding by G-tube ICD Codes: Z93.1 - Gastrostomy status SNOMED: 144165328, 561191852 Status: stable Status Narrative Discussed with Dr. Dinh. Assessment/Plan GT site care BID/prn - clean with NS, place gauze under retention ring then clamp. GTFs per dietary OB stool r/o GI bleed monitor H&H, prn transfusions bowel regime Prevacid GT fu labs Subjective Subjective limited Objective Last 24 Hour Vital Signs Date Time Temp Pulse Resp B/P (MAP) Pulse Ox O2 Delivery O2 Flow Rate FiO2 06/23/17 08:03 88 06/23/17 08:00 97.5 62 19 96/60 94 Nasal Cannula 2.0 06/23/17 04:00 58 06/23/17 04:00 97.0 65 18 114/74 100 Nasal Cannula 2.0 06/23/17 00:00 58 06/23/17 00:00 96.1 52 18 105/63 95 Nasal Cannula 2.0 06/22/17 20:06 62 16 Room Air 99 06/22/17 20:00 61 06/22/17 20:00 97.1 61 18 109/65 95 Nasal Cannula 2.0 06/22/17 16:00 97.5 66 18 122/71 96 Nasal Cannula 2.0 06/22/17 15:22 69 Intake and Output 06/23/17 06/24/17 19:00 07:00 Intake Total 345 ml Balance 345 ml Free Water 150 ml IV Total 55 ml Tube Feeding 140 ml Laboratory Tests Test 06/22/17 21:30 06/23/17 06:30 Vancomycin Level Trough 23.5 ug/mL (5.0-12.0) H White Blood Count 3.2 K/UL (4.8-10.8) L Red Blood Count 4.50 M/UL (4.70-6.10) L Hemoglobin 12.3 G/DL (14.2-18.0) L Hematocrit 37.6 % (42.0-52.0) L Mean Corpuscular Volume 84 FL (80-99) Mean Corpuscular Hemoglobin 27.4 PG (27.0-31.0) Mean Corpuscular Hemoglobin Concent 32.8 G/DL (32.0-36.0) Red Cell Distribution Width 15.6 % (11.6-14.8) H Platelet Count 110 K/UL (150-450) L Mean Platelet Volume 12.9 FL (6.5-10.1) H Neutrophils (%) (Auto) % (45.0-75.0) Lymphocytes (%) (Auto) % (20.0-45.0) Monocytes (%) (Auto) % (1.0-10.0) Eosinophils (%) (Auto) % (0.0-3.0) Basophils (%) (Auto) % (0.0-2.0) Differential Total Cells Counted 100 Neutrophils % (Manual) 34 % (45-75) L Lymphocytes % (Manual) 39 % (20-45) Monocytes % (Manual) 20 % (1-10) H Eosinophils % (Manual) 7 % (0-3) H Basophils % (Manual) 0 % (0-2) Band Neutrophils 0 % (0-8) Platelet Estimate Decreased L Platelet Morphology Normal Reticulocyte Count 0.1 % (0.0-2.0) Sodium Level 137 MMOL/L (136-145) Potassium Level 3.3 MMOL/L (3.5-5.1) L Chloride Level 104 MMOL/L (98-107) Carbon Dioxide Level 26 MMOL/L (21-32) Anion Gap 7 (5-15) Blood Urea Nitrogen 16 mg/dL (7-18) Creatinine 0.7 MG/DL (0.55-1.30) Estimat Glomerular Filtration Rate > 60 mL/min (>60) Glucose Level 101 MG/DL (74-106) Calcium Level 9.5 MG/DL (8.5-10.1) Iron Level 48 ug/dL (50-175) L Total Iron Binding Capacity 327 ug/dL (250-450) Percent Iron Saturation 15 % (15-50) Unsaturated Iron Binding 279 ug/dL (112-346) Ferritin 59 NG/ML (8-388) Total Bilirubin 0.4 MG/DL (0.2-1.0) Aspartate Amino Transf (AST/SGOT) 121 U/L (15-37) H Alanine Aminotransferase (ALT/SGPT) 126 U/L (12-78) H Alkaline Phosphatase 74 U/L (46-116) Troponin I 0.016 ng/mL (0.000-0.056) Pro-B-Type Natriuretic Peptide 75 (0-125) Total Protein 7.7 G/DL (6.4-8.2) Albumin 2.8 G/DL (3.4-5.0) L Globulin 4.9 g/dL Albumin/Globulin Ratio 0.6 (1.0-2.7) L Carcinoembryonic Antigen Pending Vitamin B12 Level 1491 PG/ML (193-986) H Folate > 20.0 NG/ML (3.1-17.5) H Thyroid Stimulating Hormone (TSH) 1.997 uiU/mL (0.360-3.740) Free Thyroxine 1.17 NG/DL (0.10-1.46) Height (Feet): 6 Height (Inches): 1.00 Weight (Pounds): 180 General Appearance: no apparent distress, alert, thin Cardiovascular: normal rate Respiratory/Chest: other - NC Abdominal Exam: GT site - min bleeding Beth Carver N.P. Jun 23, 2017 12:07
[2017-06-23] MEDS ORDERED: Nitroglycerin Subl 0.4mg tab SL PRN (13:15)
[2017-06-23] MEDS ORDERED: Promethazine/Codeine 5ml UD ORAL PRN (13:30)
[2017-06-23] MEDS ORDERED: Mylanta II UD 30ml ORAL PRN (13:30)
[2017-06-23] MEDS ORDERED: LORazepam 1mg tab ORAL PRN (13:30)
--- NOTE | 2017-06-23 13:58 | General Progress Note ---
Assessment/Plan Problem List: (1) UTI (urinary tract infection) ICD Codes: N39.0 - Urinary tract infection, site not specified SNOMED: 24351847 (2) Acute kidney injury superimposed on chronic kidney disease ICD Codes: S37.009A - Unspecified injury of unspecified kidney, initial encounter; N18.9 - Chronic kidney disease, unspecified SNOMED: 18276505 (3) Encounter for PEG (percutaneous endoscopic gastrostomy) ICD Codes: Z43.1 - Encounter for attention to gastrostomy SNOMED: 111493313, 705977919 (4) HCAP (healthcare-associated pneumonia) ICD Codes: J18.9 - Pneumonia, unspecified organism SNOMED: 455794949 (5) Encephalopathy ICD Codes: G93.40 - Encephalopathy, unspecified SNOMED: 98394364, 524522152 (6) COPD (chronic obstructive pulmonary disease) ICD Codes: J44.9 - Chronic obstructive pulmonary disease, unspecified SNOMED: 76549522 (7) Cachexia ICD Codes: R64 - Cachexia SNOMED: 852264946 (8) Schizophrenia ICD Codes: F20.9 - Schizophrenia, unspecified SNOMED: 27158067 (9) Feeding by G-tube ICD Codes: Z93.1 - Gastrostomy status SNOMED: 460214769, 903438739 (10) Pneumonia ICD Codes: J18.9 - Pneumonia, unspecified organism SNOMED: 385633390 Qualifiers: Qualified Codes: J18.9 - Pneumonia, unspecified organism Status: stable, progressing, tolerating diet Assessment/Plan o2, pulm tx abx ot pt diet cbc bmp am heme eval Subjective Constitutional: Reports: weakness Allergies: Coded Allergies: No Known Allergies (Unverified , 12/05/15) All Systems: reviewed and negative except above Subjective o2nc sleepy Objective Last 24 Hour Vital Signs Date Time Temp Pulse Resp B/P (MAP) Pulse Ox O2 Delivery O2 Flow Rate FiO2 06/23/17 12:05 97.4 65 20 111/71 100 Nasal Cannula 2.0 06/23/17 08:03 88 06/23/17 08:00 97.5 62 19 96/60 94 Nasal Cannula 2.0 06/23/17 04:00 58 06/23/17 04:00 97.0 65 18 114/74 100 Nasal Cannula 2.0 06/23/17 00:00 58 06/23/17 00:00 96.1 52 18 105/63 95 Nasal Cannula 2.0 06/22/17 20:06 62 16 Room Air 99 06/22/17 20:00 61 06/22/17 20:00 97.1 61 18 109/65 95 Nasal Cannula 2.0 06/22/17 16:00 97.5 66 18 122/71 96 Nasal Cannula 2.0 06/22/17 15:22 69 Intake and Output 06/23/17 06/24/17 19:00 07:00 Intake Total 385 ml Balance 385 ml Free Water 150 ml IV Total 55 ml Tube Feeding 180 ml Laboratory Tests 06/22/17 21:30: Vancomycin Level Trough 23.5H 06/23/17 06:30: White Blood Count 3.2L, Red Blood Count 4.50L, Hemoglobin 12.3L, Hematocrit 37.6L, Mean Corpuscular Volume 84, Mean Corpuscular Hemoglobin 27.4, Mean Corpuscular Hemoglobin Concent 32.8, Red Cell Distribution Width 15.6H, Platelet Count 110L, Mean Platelet Volume 12.9H, Neutrophils (%) (Auto) , Lymphocytes (%) (Auto) , Monocytes (%) (Auto) , Eosinophils (%) (Auto) , Basophils (%) (Auto) , Differential Total Cells Counted 100, Neutrophils % ( Manual) 34L, Lymphocytes % (Manual) 39, Monocytes % (Manual) 20H, Eosinophils % (Manual) 7H, Basophils % (Manual) 0, Band Neutrophils 0, Platelet Estimate DecreasedL, Platelet Morphology Normal, Reticulocyte Count 0.1, Sodium Level 137 , Potassium Level 3.3L, Chloride Level 104, Carbon Dioxide Level 26, Anion Gap 7 , Blood Urea Nitrogen 16, Creatinine 0.7, Estimat Glomerular Filtration Rate > 60, Glucose Level 101, Calcium Level 9.5, Iron Level 48L, Total Iron Binding Capacity 327, Percent Iron Saturation 15, Unsaturated Iron Binding 279, Ferritin 59, Total Bilirubin 0.4, Aspartate Amino Transf (AST/SGOT) 121H, Alanine Aminotransferase (ALT/SGPT) 126H, Alkaline Phosphatase 74, Troponin I 0.016, Pro-B-Type Natriuretic Peptide 75, Total Protein 7.7, Albumin 2.8L, Globulin 4.9, Albumin/Globulin Ratio 0.6L, Carcinoembryonic Antigen [Pending], Vitamin B12 Level 1491H, Folate > 20.0H, Thyroid Stimulating Hormone (TSH) 1.997 , Free Thyroxine 1.17 Height (Feet): 6 Height (Inches): 1.00 Weight (Pounds): 180 General Appearance: lethargic EENT: normal ENT inspection Neck: normal alignment Cardiovascular: normal peripheral pulses, normal rate, regular rhythm Respiratory/Chest: chest wall non-tender, lungs clear, normal breath sounds Abdomen: normal bowel sounds, non tender, soft Extremities: normal inspection Edema: no edema noted Arm (L), no edema noted Arm (R), no edema noted Leg (L), no edema noted Leg (R), no edema noted Pedal (L), no edema noted Pedal (R), no edema noted Generalized Neurologic: motor weakness Skin: normal pigmentation, warm/dry Objective bl hip and knee contracture ALONDRA SINGH Jun 23, 2017 13:57
[2017-06-23] MEDS ORDERED: Vancomycin 750mg/NS 250ml IVPB SCH (14:00)
[2017-06-23] MEDS ORDERED: Albuterol/Ipratropium 3ml neb HHN PRN (14:00)
--- NOTE | 2017-06-23 14:07 | Diagnostic Imaging Report ---
Indication: Dyspnea Comparison: 06/21/17 A single view chest radiograph was obtained. Findings: Persistent volume loss and left basilar atelectasis demonstrated. Heart size is stable. Impression: No change from the prior exam
[2017-06-23] MEDS: Vancomycin 750mg/NS 250ml 250 ML IVPB SCH (14:15)
--- NOTE | 2017-06-23 15:17 | GI Progress Note ---
Assessment/Plan Problems: (1) Bleeding from gastrostomy tube site ICD Codes: K94.21 - Gastrostomy hemorrhage SNOMED: 329921780 (2) Dysphagia ICD Codes: R13.10 - Dysphagia, unspecified SNOMED: 65206505, 841061811 (3) Anemia ICD Codes: D64.9 - Anemia, unspecified SNOMED: 440685927 (4) Alzheimer's dementia ICD Codes: G30.9 - Alzheimer's disease, unspecified SNOMED: 58322832 (5) Feeding by G-tube ICD Codes: Z93.1 - Gastrostomy status SNOMED: 535370233, 541670043 Status: stable Status Narrative Discussed with Dr. Dinh. Assessment/Plan GT site care BID/prn - clean with NS, place gauze under retention ring then clamp. GTFs per dietary OB stool r/o GI bleed monitor H&H, prn transfusions bowel regime Prevacid GT fu labs The patient was seen and examined at bedside and all new and available data was reviewed in the patients chart. I agree with the above findings, impression and plan. (Patient seen earlier today. Signature stamp does not reflect patient encounter time.). - Marilu Dinh MD Subjective Subjective limited Objective Last 24 Hour Vital Signs Date Time Temp Pulse Resp B/P (MAP) Pulse Ox O2 Delivery O2 Flow Rate FiO2 06/23/17 12:05 97.4 65 20 111/71 100 Nasal Cannula 2.0 06/23/17 08:03 88 06/23/17 08:00 97.5 62 19 96/60 94 Nasal Cannula 2.0 06/23/17 04:00 58 06/23/17 04:00 97.0 65 18 114/74 100 Nasal Cannula 2.0 06/23/17 00:00 58 06/23/17 00:00 96.1 52 18 105/63 95 Nasal Cannula 2.0 06/22/17 20:06 62 16 Room Air 99 06/22/17 20:00 61 06/22/17 20:00 97.1 61 18 109/65 95 Nasal Cannula 2.0 06/22/17 16:00 97.5 66 18 122/71 96 Nasal Cannula 2.0 06/22/17 15:22 69 Intake and Output 06/23/17 06/24/17 19:00 07:00 Intake Total 475 ml Balance 475 ml Free Water 150 ml IV Total 55 ml Tube Feeding 270 ml Laboratory Tests Test 06/22/17 21:30 06/23/17 06:30 Vancomycin Level Trough 23.5 ug/mL (5.0-12.0) H White Blood Count 3.2 K/UL (4.8-10.8) L Red Blood Count 4.50 M/UL (4.70-6.10) L Hemoglobin 12.3 G/DL (14.2-18.0) L Hematocrit 37.6 % (42.0-52.0) L Mean Corpuscular Volume 84 FL (80-99) Mean Corpuscular Hemoglobin 27.4 PG (27.0-31.0) Mean Corpuscular Hemoglobin Concent 32.8 G/DL (32.0-36.0) Red Cell Distribution Width 15.6 % (11.6-14.8) H Platelet Count 110 K/UL (150-450) L Mean Platelet Volume 12.9 FL (6.5-10.1) H Neutrophils (%) (Auto) % (45.0-75.0) Lymphocytes (%) (Auto) % (20.0-45.0) Monocytes (%) (Auto) % (1.0-10.0) Eosinophils (%) (Auto) % (0.0-3.0) Basophils (%) (Auto) % (0.0-2.0) Differential Total Cells Counted 100 Neutrophils % (Manual) 34 % (45-75) L Lymphocytes % (Manual) 39 % (20-45) Monocytes % (Manual) 20 % (1-10) H Eosinophils % (Manual) 7 % (0-3) H Basophils % (Manual) 0 % (0-2) Band Neutrophils 0 % (0-8) Platelet Estimate Decreased L Platelet Morphology Normal Reticulocyte Count 0.1 % (0.0-2.0) Sodium Level 137 MMOL/L (136-145) Potassium Level 3.3 MMOL/L (3.5-5.1) L Chloride Level 104 MMOL/L (98-107) Carbon Dioxide Level 26 MMOL/L (21-32) Anion Gap 7 (5-15) Blood Urea Nitrogen 16 mg/dL (7-18) Creatinine 0.7 MG/DL (0.55-1.30) Estimat Glomerular Filtration Rate > 60 mL/min (>60) Glucose Level 101 MG/DL (74-106) Calcium Level 9.5 MG/DL (8.5-10.1) Iron Level 48 ug/dL (50-175) L Total Iron Binding Capacity 327 ug/dL (250-450) Percent Iron Saturation 15 % (15-50) Unsaturated Iron Binding 279 ug/dL (112-346) Ferritin 59 NG/ML (8-388) Total Bilirubin 0.4 MG/DL (0.2-1.0) Aspartate Amino Transf (AST/SGOT) 121 U/L (15-37) H Alanine Aminotransferase (ALT/SGPT) 126 U/L (12-78) H Alkaline Phosphatase 74 U/L (46-116) Troponin I 0.016 ng/mL (0.000-0.056) Pro-B-Type Natriuretic Peptide 75 (0-125) Total Protein 7.7 G/DL (6.4-8.2) Albumin 2.8 G/DL (3.4-5.0) L Globulin 4.9 g/dL Albumin/Globulin Ratio 0.6 (1.0-2.7) L Carcinoembryonic Antigen Pending Vitamin B12 Level 1491 PG/ML (193-986) H Folate > 20.0 NG/ML (3.1-17.5) H Thyroid Stimulating Hormone (TSH) 1.997 uiU/mL (0.360-3.740) Free Thyroxine 1.17 NG/DL (0.10-1.46) Height (Feet): 6 Height (Inches): 1.00 Weight (Pounds): 180 General Appearance: no apparent distress, alert, thin Cardiovascular: normal rate Respiratory/Chest: normal breath sounds, no respiratory distress Abdominal Exam: GT site - min bleeding, no hypergranulation Beth Carver N.P. Jun 23, 2017 15:17 FRITZ DINH Jun 27, 2017 15:47
[2017-06-23 16:30] VITALS: BP 114/77
[2017-06-23 19:56] VITALS: BP 122/76
[2017-06-24 00:07] VITALS: BP 130/84
[2017-06-24] MEDS: Vancomycin 750mg/NS 250ml 250 ML IVPB SCH ×2 (02:29→14:45)
[2017-06-24 03:40] VITALS: BP 119/67
[2017-06-24] MEDS ORDERED: Miralax 17gm pkt ORAL PRN (07:00)
[2017-06-24 08:00] VITALS: BP 138/96
[2017-06-24] MEDS: ZyPREXA Zydis 10mg tab ORAL SCH ×2 (08:27→22:15)
[2017-06-24] MEDS: Cefepime HCl 1 GM in D5W 55 ML IV SCH ×2 (08:29→22:16)
[2017-06-24] MEDS: Heparin 5000 units/ml inj SUBQ SCH ×2 (09:00→22:17)
[2017-06-24 09:01] LABS: BASOPHILS % (AUTO) 0.6 % (0.0-2.0); EOSINOPHILS % (AUTO) 4.6 % (0.0-3.0); LYMPHOCYTES % (AUTO) 20.9 % (20.0-45.0); MEAN CORPUSCULAR HEMOGLOBIN 27.1 PG (27.0-31.0); MEAN CORPUSCULAR HGB CONC 32.3 G/DL (32.0-36.0); MEAN CORPUSCULAR VOLUME 84 FL (80-99); MEAN PLATELET VOLUME 11.6 FL (6.5-10.1); MONOCYTES % (AUTO) 14.9 % (1.0-10.0); NEUTROPHILS % (AUTO) 59.1 % (45.0-75.0); PLATELET COUNT 120 K/UL (150-450); RED BLOOD COUNT 4.77 M/UL (4.70-6.10); RED CELL DISTRIBUTION WIDTH 15.3 % (11.6-14.8)
--- NOTE | 2017-06-24 09:23 | General Progress Note ---
Assessment/Plan Problem List: (1) Constipation ICD Codes: K59.00 - Constipation, unspecified SNOMED: 47856952 (2) HTN (hypertension) ICD Codes: I10 - Essential (primary) hypertension SNOMED: 13651981 (3) Schizophrenia ICD Codes: F20.9 - Schizophrenia, unspecified SNOMED: 88211171 (4) Feeding by G-tube ICD Codes: Z93.1 - Gastrostomy status SNOMED: 436050687, 032913348 (5) LFTs abnormal ICD Codes: R79.89 - Other specified abnormal findings of blood chemistry SNOMED: 055324960 (6) Anemia ICD Codes: D64.9 - Anemia, unspecified SNOMED: 441941933 (7) Dysphagia ICD Codes: R13.10 - Dysphagia, unspecified SNOMED: 29286355, 839709053 Assessment/Plan decrease GTF to 50 GT site care BID/prn - clean with NS, place gauze under retention ring then clamp. OB stool r/o GI bleed monitor H&H, prn transfusions bowel regime Prevacid GT fu labs abd us Subjective ROS Limited/Unobtainable: No Allergies: Coded Allergies: No Known Allergies (Unverified , 12/05/15) Objective Last 24 Hour Vital Signs Date Time Temp Pulse Resp B/P (MAP) Pulse Ox O2 Delivery O2 Flow Rate FiO2 06/24/17 08:00 97.7 100 20 138/96 90 Room Air 06/24/17 03:40 97.7 85 20 119/67 95 Room Air 06/24/17 00:07 97.7 84 20 130/84 98 Room Air 06/23/17 19:56 97.7 77 20 122/76 97 Room Air 06/23/17 16:30 97.7 74 20 114/77 98 Nasal Cannula 2.0 06/23/17 12:05 97.4 65 20 111/71 100 Nasal Cannula 2.0 Laboratory Tests 06/24/17 08:07: White Blood Count 4.0L, Red Blood Count 4.77, Hemoglobin 12.9L, Hematocrit 40.0L , Mean Corpuscular Volume 84, Mean Corpuscular Hemoglobin 27.1, Mean Corpuscular Hemoglobin Concent 32.3, Red Cell Distribution Width 15.3H, Platelet Count 120L, Mean Platelet Volume 11.6H, Neutrophils (%) (Auto) 59.1, Lymphocytes (%) (Auto) 20.9, Monocytes (%) (Auto) 14.9H, Eosinophils (%) (Auto) 4.6H, Basophils (%) (Auto) 0.6, Sodium Level [Pending], Potassium Level [Pending ], Chloride Level [Pending], Carbon Dioxide Level [Pending], Blood Urea Nitrogen [Pending], Creatinine [Pending], Estimat Glomerular Filtration Rate [ Pending], Glucose Level [Pending], Calcium Level [Pending], Total Bilirubin [ Pending], Aspartate Amino Transf (AST/SGOT) [Pending], Alanine Aminotransferase (ALT/SGPT) [Pending], Alkaline Phosphatase [Pending], Pro-B-Type Natriuretic Peptide [Pending], Total Protein [Pending], Albumin [Pending], Globulin [Pending ] Height (Feet): 6 Height (Inches): 1.00 Weight (Pounds): 180 General Appearance: no apparent distress EENT: normal ENT inspection Neck: supple Cardiovascular: normal rate Respiratory/Chest: decreased breath sounds Abdomen: normal bowel sounds, non tender, soft Extremities: non-tender FRITZ DELANEY Jun 24, 2017 09:23
[2017-06-24 09:43] LABS: ALANINE AMINOTRANSFERASE 119 U/L (12-78); ALBUMIN/GLOBULIN RATIO 0.6 (1.0-2.7); ANION GAP 5 (5-15); ASPARTATE AMINO TRANSFERASE 105 U/L (15-37); CALCIUM 9.6 MG/DL (8.5-10.1); CARBON DIOXIDE 27 MMOL/L (21-32); CHLORIDE 102 MMOL/L (98-107); CREATININE 0.8 MG/DL (0.55-1.30); GLOMERULAR FILTRATION RATE > 60 mL/min (>60); POTASSIUM 3.9 MMOL/L (3.5-5.1); SODIUM 134 MMOL/L (136-145); TOTAL PROTEIN 7.7 G/DL (6.4-8.2)
--- NOTE | 2017-06-24 10:02 | Diagnostic Imaging Report ---
Indication: Dyspnea Comparison: 06/23/2017 A single view chest radiograph was obtained. Findings: Persistent volume loss and left basilar atelectasis demonstrated. Heart size is stable. Impression: No change from the prior exam
--- NOTE | 2017-06-24 10:35 | General Progress Note ---
Assessment/Plan Problem List: (1) UTI (urinary tract infection) ICD Codes: N39.0 - Urinary tract infection, site not specified SNOMED: 85059144 (2) Acute kidney injury superimposed on chronic kidney disease ICD Codes: S37.009A - Unspecified injury of unspecified kidney, initial encounter; N18.9 - Chronic kidney disease, unspecified SNOMED: 49301882 (3) Encounter for PEG (percutaneous endoscopic gastrostomy) ICD Codes: Z43.1 - Encounter for attention to gastrostomy SNOMED: 637888983, 777505770 (4) HCAP (healthcare-associated pneumonia) ICD Codes: J18.9 - Pneumonia, unspecified organism SNOMED: 557142546 (5) Encephalopathy ICD Codes: G93.40 - Encephalopathy, unspecified SNOMED: 10108048, 627724004 (6) COPD (chronic obstructive pulmonary disease) ICD Codes: J44.9 - Chronic obstructive pulmonary disease, unspecified SNOMED: 10171570 (7) Cachexia ICD Codes: R64 - Cachexia SNOMED: 854463082 (8) Schizophrenia ICD Codes: F20.9 - Schizophrenia, unspecified SNOMED: 20308938 (9) Feeding by G-tube ICD Codes: Z93.1 - Gastrostomy status SNOMED: 370953839, 579119960 (10) Pneumonia ICD Codes: J18.9 - Pneumonia, unspecified organism SNOMED: 073149840 Qualifiers: Qualified Codes: J18.9 - Pneumonia, unspecified organism Status: stable, progressing, tolerating diet Assessment/Plan o2, pulm tx abx ot pt diet cbc bmp am ltach eval Subjective Constitutional: Reports: weakness Allergies: Coded Allergies: No Known Allergies (Unverified , 12/05/15) All Systems: reviewed and negative except above Subjective sleepy Objective Last 24 Hour Vital Signs Date Time Temp Pulse Resp B/P (MAP) Pulse Ox O2 Delivery O2 Flow Rate FiO2 06/24/17 09:55 89 20 Room Air 06/24/17 08:00 97.7 100 20 138/96 90 Room Air 06/24/17 03:40 97.7 85 20 119/67 95 Room Air 06/24/17 00:07 97.7 84 20 130/84 98 Room Air 06/23/17 19:56 97.7 77 20 122/76 97 Room Air 06/23/17 16:30 97.7 74 20 114/77 98 Nasal Cannula 2.0 06/23/17 12:05 97.4 65 20 111/71 100 Nasal Cannula 2.0 Laboratory Tests 06/24/17 08:07: White Blood Count 4.0L, Red Blood Count 4.77, Hemoglobin 12.9L, Hematocrit 40.0L , Mean Corpuscular Volume 84, Mean Corpuscular Hemoglobin 27.1, Mean Corpuscular Hemoglobin Concent 32.3, Red Cell Distribution Width 15.3H, Platelet Count 120L, Mean Platelet Volume 11.6H, Neutrophils (%) (Auto) 59.1, Lymphocytes (%) (Auto) 20.9, Monocytes (%) (Auto) 14.9H, Eosinophils (%) (Auto) 4.6H, Basophils (%) (Auto) 0.6, Sodium Level 134L, Potassium Level 3.9, Chloride Level 102, Carbon Dioxide Level 27, Anion Gap 5, Blood Urea Nitrogen 17 , Creatinine 0.8, Estimat Glomerular Filtration Rate > 60, Glucose Level 127H, Calcium Level 9.6, Total Bilirubin 0.3, Aspartate Amino Transf (AST/SGOT) 105H, Alanine Aminotransferase (ALT/SGPT) 119H, Alkaline Phosphatase 76, Pro-B-Type Natriuretic Peptide 67, Total Protein 7.7, Albumin 2.9L, Globulin 4.8, Albumin/ Globulin Ratio 0.6L Height (Feet): 6 Height (Inches): 1.00 Weight (Pounds): 180 General Appearance: lethargic EENT: normal ENT inspection Neck: normal alignment Cardiovascular: normal peripheral pulses, normal rate, regular rhythm Respiratory/Chest: chest wall non-tender, lungs clear, normal breath sounds Abdomen: normal bowel sounds, non tender, soft Extremities: normal inspection Edema: no edema noted Arm (L), no edema noted Arm (R), no edema noted Leg (L), no edema noted Leg (R), no edema noted Pedal (L), no edema noted Pedal (R), no edema noted Generalized Neurologic: motor weakness Skin: normal pigmentation, warm/dry Objective bl hip and knee contracture ALONDRA SINGH Jun 24, 2017 10:35
[2017-06-24 12:00] VITALS: BP 122/70
[2017-06-24] MEDS: Lactulose 10gm/15ml UDC ORAL SCH ×2 (12:53→18:00)
[2017-06-24 16:00] VITALS: BP 122/83
--- NOTE | 2017-06-24 16:45 | Consultation ---
DATE OF CONSULTATION: 06/22/2017 CARDIOLOGY CONSULTATION CONSULTING PHYSICIAN: Ren Shah M.D. REFERRING PHYSICIAN: Johan Rangel D.O. REASON FOR CONSULTATION: Management of shortness of breath. HISTORY OF PRESENT ILLNESS: The patient is a very unfortunate, 66-year-old gentleman, who was brought from group home for difficulty breathing for just about a day. Chest x-ray recently done showed presence of pneumonia. The patient was brought by EMS to [facility] emergency department. At the time of evaluation by emergency department physician, there were no signs of respiratory distress. The patient has underlying encephalopathy and is not verbally communicating. He was admitted to [facility] for further evaluation and management. In the emergency department, his initial blood pressure was 105/62 and pulse of 82. Cardiology consultation was made at the request of Dr. Rangel for evaluation and management of dyspnea from cardiac standpoint. PAST MEDICAL HISTORY: Hypertension, chronic obstructive pulmonary disease, encephalopathy, renal failure, malnutrition, history of sepsis, history of DVT, and history of aspiration pneumonia. PAST SURGICAL HISTORY: Status post percutaneous endoscopic gastrostomy placement. LIST OF MEDICATIONS: 1. Acetaminophen 325 mg q.4 h. p.r.n. for pain and temperature. 2. Magnesium hydroxide 30 mL G-tube q.6 h. p.r.n. abdominal cramps. 3. Codeine and promethazine 5 mL q.4 h. p.r.n. for cough. 4. Pepcid 20 mg q.12 h. 5. DuoNeb 3 mL HHN q.4 h. p.r.n. shortness of breath. 6. Ativan 1 mg G-tube q.6 h. p.r.n. anxiety. 7. Midodrine 5 mg G-tube 3 times daily. 8. Nitroglycerin 0.4 mL sublingual p.r.n. chest pain. 9. Zyprexa 10 mg G-tube twice daily. 10. Zofran 4 mg G-tube q.6 h. p.r.n. nausea and vomiting. 11. Zosyn 3.375 g IV piggyback q.8 h. 12. MiraLAX 17 g G-tube daily p.r.n. constipation. 13. Restoril 15 mg at bedtime p.r.n. insomnia. 14. Vancomycin 1.25 g IV q.24 h. 15. Coumadin 3 mg G-tube daily. REVIEW OF SYSTEMS: The patient is nonverbal. This 12-system review cannot be obtained. ALLERGIES: No known drug allergies. SOCIAL HISTORY: There is no current history of tobacco, alcohol, or illicit drug use. PHYSICAL EXAMINATION: VITAL SIGNS: Blood pressure is 105/62, respirations 21, pulse of 82, temperature 97.5 degrees Fahrenheit, and O2 saturation 97% on room air. GENERAL: The patient is a very unfortunate 66-year-old gentleman, in no apparent respiratory distress on nasal cannula oxygen. HEENT: Atraumatic and normocephalic. Pupils are equal, round, and reactive to light and accommodation. Extraocular motions intact. Conjunctival pallor is present. NECK: JVP less than 5 cm. No carotid bruit. Carotid upstroke is 2+ bilaterally. CARDIOVASCULAR: Normal S1, S2. Regular rate and rhythm. No murmurs, gallops, or rubs. PMI is at 4th intercostal space at the midclavicular line. LUNGS: Diminished breath sounds in both bases. ABDOMEN: Soft, nontender, and nondistended. No hepatosplenomegaly. Presence of a G-tube. EXTREMITIES: No evidence of edema, clubbing, or cyanosis. LABORATORY FINDINGS: WBC was 5.8, hemoglobin of 14.9, hematocrit of 45.8, and platelet count is 156. Sodium 133, potassium is 4.5, chloride 97, bicarbonate 31, BUN of 23, creatinine 0.9, glucose is 83, and calcium is 89. AST and ALT 102 and 128 respectively. Troponin I was 0.129. ProBNP was 265. Chest x-ray showed elevated left hemidiaphragm, atelectasis of left lung, normal cardiac silhouette. No acute cardiopulmonary pathology. ASSESSMENT AND PLAN: The patient is a very pleasant 66-year-old gentleman, seen in Cardiology consultation at the request of Dr. Rangel. 1. Dyspnea, supposedly due to pneumonia. The last chest x-ray in the emergency department does not show any evidence of infiltration, although there is elevation of left hemidiaphragm. From cardiac etiology, a 12-lead electrocardiogram did not show any evidence of ST and T-wave abnormalities, although the first troponin I level was slightly elevated. We will continue with serial troponin I to evaluate for possible acute myocardial infarction. In view of the patient's mental status and physical condition, I do not pursue any ischemic workup. 2. The patient will be continued on IV antibiotic therapy, pulmonary toilet, and also we will continue to observe for hemodynamic instability. 3. History of hypertension, currently well controlled. We will continue to monitor blood pressure throughout the stay. 4. History of chronic obstructive pulmonary disease. 5. History of encephalopathy. 6. History of hypotension. The patient was on midodrine as an outpatient. We will continue to observe the patient's blood pressure throughout the stay. I would like to thank, Dr. Rangel, for allowing me to participate in the care of this patient. Ren Shah M.D. DR: JENNIFER JOB#: [id number] CC:
--- NOTE | 2017-06-24 17:32 | Pulmonology Progress Note ---
Assessment/Plan Assessment/Plan ASSESSMENT PNA elevated troponin COPD dysphagia, G tube elevated LFT anemia moderate AI e/lyte imbalance functional quadriplegia cachexia likely protein calorie malnutrition Alzheimer dementia schizophrenia PLAN OF CARE MS floor abx ID follows O2 HHN and CPT currently on RA pulse ox stable antitussive prn fup with CXR dyspnea was presumably due to PNA, resolved DVT prophylaxis venous Duplex BLE pending initially with elevated troponin last troponin negative, cardio follows per cardio: From cardiac standpoint, no evidence of ST and T-wave abnormalities, although the first two troponin I levels were slightly positive, he doubted that was an ACS, in view of the patient's mental status and physical condition, cardio decided not pursue any ischemic workup. BP management with Midodrine, remains stable ECHO with EF 55% and moderate AI CT head no acute IC pathology GI follows swallow eval did not pass - severe dysphagia resumed GT feeding, strict aspiration/reflux precautions, monitor tolerance , site care bowel regimen LFT still elevated, with only small trend down abdominal US pending get hepatitis quality assurance monitor HH transfuse prn anemia w/up noted on Venofer IV nephro follows, monitor lytes and replace as needed avoid nephrotoxic dietary eval done, supplements added as per dietary recommendations case discussed and evaluated by supervising physician Subjective Allergies: Coded Allergies: No Known Allergies (Unverified , 12/05/15) Subjective transferred to MS floor no signs of respiratory distress Objective Last 24 Hour Vital Signs Date Time Temp Pulse Resp B/P (MAP) Pulse Ox O2 Delivery O2 Flow Rate FiO2 06/24/17 16:00 97.3 92 20 122/83 98 Room Air 06/24/17 12:00 97.7 97 19 122/70 96 Room Air 06/24/17 09:55 89 20 Room Air 06/24/17 08:00 97.7 100 20 138/96 90 Room Air 06/24/17 03:40 97.7 85 20 119/67 95 Room Air 06/24/17 00:07 97.7 84 20 130/84 98 Room Air 06/23/17 19:56 97.7 77 20 122/76 97 Room Air Laboratory Tests 06/24/17 08:07: White Blood Count 4.0L, Red Blood Count 4.77, Hemoglobin 12.9L, Hematocrit 40.0L , Mean Corpuscular Volume 84, Mean Corpuscular Hemoglobin 27.1, Mean Corpuscular Hemoglobin Concent 32.3, Red Cell Distribution Width 15.3H, Platelet Count 120L, Mean Platelet Volume 11.6H, Neutrophils (%) (Auto) 59.1, Lymphocytes (%) (Auto) 20.9, Monocytes (%) (Auto) 14.9H, Eosinophils (%) (Auto) 4.6H, Basophils (%) (Auto) 0.6, Sodium Level 134L, Potassium Level 3.9, Chloride Level 102, Carbon Dioxide Level 27, Anion Gap 5, Blood Urea Nitrogen 17 , Creatinine 0.8, Estimat Glomerular Filtration Rate > 60, Glucose Level 127H, Calcium Level 9.6, Total Bilirubin 0.3, Aspartate Amino Transf (AST/SGOT) 105H, Alanine Aminotransferase (ALT/SGPT) 119H, Alkaline Phosphatase 76, Pro-B-Type Natriuretic Peptide 67, Total Protein 7.7, Albumin 2.9L, Globulin 4.8, Albumin/ Globulin Ratio 0.6L Current Medications Medications (Trade) Dose Ordered Sig/Gloria Route PRN Reason Start Time Stop Time Status Last Admin Dose Admin Acetaminophen (Tylenol) 650 mg Q4H PRN ORAL T>100.5F 06/23/17 15:00 07/21/17 06:59 Al Hydroxide/Mg Hydroxide (Mylanta II) 30 ml Q6H PRN ORAL dyspepsia 06/23/17 13:30 07/21/17 13:29 Albuterol/ Ipratropium (DuoNeb 0.5-3(2.5)mg/3ml) 3 ml Q4H PRN HHN Shortness of Breath 06/23/17 14:00 06/26/17 13:59 Cefepime HCl 1 gm/ Dextrose 55 ml @ 110 mls/hr EVERY 12 HOURS IV 06/23/17 21:00 06/28/17 10:59 06/24/17 08:29 Docusate Sodium (Colace) 100 mg TWICE A DAY ORAL 06/24/17 18:00 07/24/17 17:59 Heparin Sodium (Porcine) (Heparin 5000 units/ml) 5,000 units EVERY 12 HOURS SUBQ 06/23/17 21:00 07/21/17 08:59 Lactulose (Cephulac) 10 gm THREE TIMES A DAY ORAL 06/24/17 13:00 07/24/17 12:59 06/24/17 12:53 Lorazepam (Ativan) 1 mg Q6H PRN ORAL For Anxiety 06/23/17 13:30 06/28/17 13:29 Midodrine (Pro-Amatine) 5 mg THREE TIMES A DAY ORAL 06/23/17 14:00 07/21/17 13:59 06/24/17 12:53 Nitroglycerin (Ntg) 0.4 mg Q5M PRN SL Prn Chest Pain 06/23/17 13:15 07/21/17 06:59 Olanzapine (ZyPREXA Zydis) 10 mg EVERY 12 HOURS ORAL 06/23/17 21:00 07/21/17 08:59 06/24/17 08:27 Ondansetron HCl (Zofran) 4 mg Q6H PRN IVP Nausea & Vomiting 06/23/17 13:30 07/21/17 13:29 Polyethylene Glycol (Miralax) 17 gm DAILYPRN PRN ORAL Constipation 06/24/17 07:00 07/21/17 06:59 Promethazine HCl/ Codeine (Phenergan with Codeine) 5 ml Q4H PRN ORAL For Cough 06/23/17 13:30 07/21/17 13:29 Temazepam (Restoril) 15 mg HSPRN PRN ORAL Insomnia 06/23/17 21:00 06/28/17 20:59 Vancomycin HCl (Vanco rx to dose) 1 ea DAILY PRN MISC Per rx protocol 06/23/17 13:30 07/23/17 13:29 Vancomycin/Sodium Chloride 250 ml @ 166.667 mls/hr Q12HR@0200,1400 IVPB 06/23/17 14:00 06/28/17 13:59 06/24/17 14:45 Todd (Kalen)Rena NP Jun 24, 2017 17:32
[2017-06-24] MEDS: Docusate 100mg cap ORAL SCH (18:10)
--- NOTE | 2017-06-24 19:41 | Cardiology Progress Note ---
Assessment/Plan Assessment/Plan 1. Dyspnea, supposedly due to pneumonia. From cardiac standpoint, there is no evidence of ST and T-wave abnormalities, although the first two troponin I levels are slightly positive, doubt this is an ACS, in view of the patient's mental status and physical condition, I do not pursue any ischemic workup. 2. History of hypotension, continue midodrine. Subjective Subjective Sinus rhythm at 92. Non-verbal. Objective Last 24 Hour Vital Signs Date Time Temp Pulse Resp B/P (MAP) Pulse Ox O2 Delivery O2 Flow Rate FiO2 06/24/17 16:00 97.3 92 20 122/83 98 Room Air 06/24/17 12:00 97.7 97 19 122/70 96 Room Air 06/24/17 09:55 89 20 Room Air 06/24/17 08:00 97.7 100 20 138/96 90 Room Air 06/24/17 03:40 97.7 85 20 119/67 95 Room Air 06/24/17 00:07 97.7 84 20 130/84 98 Room Air 06/23/17 19:56 97.7 77 20 122/76 97 Room Air Intake and Output 06/24/17 06/25/17 19:00 07:00 Output Total 900 ml Balance -900 ml Output Urine Total 900 ml 2D Echo: LVEF at 60-65%, Moderate AR Laboratory Tests Test 06/24/17 08:07 White Blood Count 4.0 K/UL (4.8-10.8) L Red Blood Count 4.77 M/UL (4.70-6.10) Hemoglobin 12.9 G/DL (14.2-18.0) L Hematocrit 40.0 % (42.0-52.0) L Mean Corpuscular Volume 84 FL (80-99) Mean Corpuscular Hemoglobin 27.1 PG (27.0-31.0) Mean Corpuscular Hemoglobin Concent 32.3 G/DL (32.0-36.0) Red Cell Distribution Width 15.3 % (11.6-14.8) H Platelet Count 120 K/UL (150-450) L Mean Platelet Volume 11.6 FL (6.5-10.1) H Neutrophils (%) (Auto) 59.1 % (45.0-75.0) Lymphocytes (%) (Auto) 20.9 % (20.0-45.0) Monocytes (%) (Auto) 14.9 % (1.0-10.0) H Eosinophils (%) (Auto) 4.6 % (0.0-3.0) H Basophils (%) (Auto) 0.6 % (0.0-2.0) Sodium Level 134 MMOL/L (136-145) L Potassium Level 3.9 MMOL/L (3.5-5.1) Chloride Level 102 MMOL/L (98-107) Carbon Dioxide Level 27 MMOL/L (21-32) Anion Gap 5 (5-15) Blood Urea Nitrogen 17 mg/dL (7-18) Creatinine 0.8 MG/DL (0.55-1.30) Estimat Glomerular Filtration Rate > 60 mL/min (>60) Glucose Level 127 MG/DL (74-106) H Calcium Level 9.6 MG/DL (8.5-10.1) Total Bilirubin 0.3 MG/DL (0.2-1.0) Aspartate Amino Transf (AST/SGOT) 105 U/L (15-37) H Alanine Aminotransferase (ALT/SGPT) 119 U/L (12-78) H Alkaline Phosphatase 76 U/L (46-116) Pro-B-Type Natriuretic Peptide 67 (0-125) Total Protein 7.7 G/DL (6.4-8.2) Albumin 2.9 G/DL (3.4-5.0) L Globulin 4.8 g/dL Albumin/Globulin Ratio 0.6 (1.0-2.7) L Objective HEENT: Atraumatic and normocephalic. Pupils are equal, round, and reactive to light and accommodation. Extraocular motions intact. Conjunctival pallor is present. NECK: JVP less than 5 cm. No carotid bruit. Carotid upstroke is 2+ bilaterally. CARDIOVASCULAR: Normal S1, S2. Regular rate and rhythm. 2/6 MSM at LSB, no gallops, or rubs. PMI is at 4th intercostal space at the midclavicular line. LUNGS: Diminished breath sounds in both bases. ABDOMEN: Soft, nontender, and nondistended. No hepatosplenomegaly. Presence of a G-tube. EXTREMITIES: No evidence of edema, clubbing, or cyanosis. VOLODYMYR BLANCHARD Jun 24, 2017 19:41
[2017-06-24 20:00] VITALS: BP 136/76
[2017-06-24] MEDS: Iron Sucrose 100 MG in NS 55 ML IVPB SCH (22:15)
[2017-06-25] VITALS: BP 121/75
[2017-06-25] MEDS: Vancomycin 750mg/NS 250ml 250 ML IVPB SCH ×2 (03:16→14:10)
[2017-06-25 03:45] VITALS: BP 104/74
[2017-06-25 08:00] VITALS: BP 109/70
[2017-06-25] MEDS: ZyPREXA Zydis 10mg tab ORAL SCH ×2 (08:49→21:23)
[2017-06-25] MEDS: Docusate 100mg cap ORAL SCH ×2 (08:56→17:45)
[2017-06-25] MEDS: Cefepime HCl 1 GM in D5W 55 ML IV SCH ×2 (08:56→21:23)
[2017-06-25] MEDS: Lactulose 10gm/15ml UDC ORAL SCH ×3 (08:56→17:44)
[2017-06-25] MEDS: Heparin 5000 units/ml inj SUBQ SCH ×2 (09:00→21:25)
[2017-06-25 09:01] LABS: BASOPHILS % (AUTO) 0.8 % (0.0-2.0); EOSINOPHILS % (AUTO) 5.5 % (0.0-3.0); MEAN CORPUSCULAR HEMOGLOBIN 27.8 PG (27.0-31.0); MEAN CORPUSCULAR HGB CONC 33.1 G/DL (32.0-36.0); MEAN CORPUSCULAR VOLUME 84 FL (80-99); MEAN PLATELET VOLUME 11.2 FL (6.5-10.1); MONOCYTES % (AUTO) 16.7 % (1.0-10.0); PLATELET COUNT 124 K/UL (150-450); RED BLOOD COUNT 4.58 M/UL (4.70-6.10); RED CELL DISTRIBUTION WIDTH 15.8 % (11.6-14.8); WHITE BLOOD COUNT 3.8 K/UL (4.8-10.8)
[2017-06-25 09:29] LABS: ALANINE AMINOTRANSFERASE 103 U/L (12-78); ALBUMIN/GLOBULIN RATIO 0.6 (1.0-2.7); ASPARTATE AMINO TRANSFERASE 88 U/L (15-37); CALCIUM 9.4 MG/DL (8.5-10.1); CHLORIDE 108 MMOL/L (98-107); CREATININE 0.7 MG/DL (0.55-1.30); GLOMERULAR FILTRATION RATE > 60 mL/min (>60); SODIUM 142 MMOL/L (136-145); TOTAL PROTEIN 7.2 G/DL (6.4-8.2)
[2017-06-25 09:43] LABS: CARBON DIOXIDE 26 MMOL/L (21-32)
[2017-06-25] MEDS ORDERED: Sterile Water Irrig 1000ml IRRIG ONE (10:20)
[2017-06-25] MEDS ORDERED: Tubing IV Secondary IV ONE ×2 (10:20→15:08)
--- NOTE | 2017-06-25 10:30 | General Progress Note ---
Assessment/Plan Problem List: (1) UTI (urinary tract infection) ICD Codes: N39.0 - Urinary tract infection, site not specified SNOMED: 74788199 (2) Acute kidney injury superimposed on chronic kidney disease ICD Codes: S37.009A - Unspecified injury of unspecified kidney, initial encounter; N18.9 - Chronic kidney disease, unspecified SNOMED: 17781230 (3) Encounter for PEG (percutaneous endoscopic gastrostomy) ICD Codes: Z43.1 - Encounter for attention to gastrostomy SNOMED: 630179464, 857537135 (4) HCAP (healthcare-associated pneumonia) ICD Codes: J18.9 - Pneumonia, unspecified organism SNOMED: 292147744 (5) Encephalopathy ICD Codes: G93.40 - Encephalopathy, unspecified SNOMED: 59826640, 239371852 (6) COPD (chronic obstructive pulmonary disease) ICD Codes: J44.9 - Chronic obstructive pulmonary disease, unspecified SNOMED: 67447262 (7) Cachexia ICD Codes: R64 - Cachexia SNOMED: 337562922 (8) Schizophrenia ICD Codes: F20.9 - Schizophrenia, unspecified SNOMED: 90381379 (9) Feeding by G-tube ICD Codes: Z93.1 - Gastrostomy status SNOMED: 380645715, 317888393 (10) Pneumonia ICD Codes: J18.9 - Pneumonia, unspecified organism SNOMED: 394788400 Qualifiers: Qualified Codes: J18.9 - Pneumonia, unspecified organism Status: stable, progressing, tolerating diet Assessment/Plan o2, pulm tx abx ot pt diet cbc bmp am ltach eval Subjective Constitutional: Reports: weakness Allergies: Coded Allergies: No Known Allergies (Unverified , 12/05/15) All Systems: reviewed and negative except above Subjective sleepy Objective Last 24 Hour Vital Signs Date Time Temp Pulse Resp B/P (MAP) Pulse Ox O2 Delivery O2 Flow Rate FiO2 06/25/17 08:00 97.5 93 20 109/70 93 Room Air 06/25/17 03:45 97.6 86 20 104/74 93 Nasal Cannula 06/25/17 00:00 98.0 80 20 121/75 93 Room Air 06/24/17 20:00 97.9 62 20 136/76 92 Room Air 06/24/17 19:56 92 18 Room Air 06/24/17 16:00 97.3 92 20 122/83 98 Room Air 06/24/17 12:00 97.7 97 19 122/70 96 Room Air Laboratory Tests 06/25/17 01:30: Vancomycin Level Trough 15.5H 06/25/17 08:10: White Blood Count 3.8L, Red Blood Count 4.58L, Hemoglobin 12.7L, Hematocrit 38.5L, Mean Corpuscular Volume 84, Mean Corpuscular Hemoglobin 27.8, Mean Corpuscular Hemoglobin Concent 33.1, Red Cell Distribution Width 15.8H, Platelet Count 124L, Mean Platelet Volume 11.2H, Neutrophils (%) (Auto) 49.0, Lymphocytes (%) (Auto) 28.0, Monocytes (%) (Auto) 16.7H, Eosinophils (%) (Auto) 5.5H, Basophils (%) (Auto) 0.8, Sodium Level 142, Potassium Level 4.0, Chloride Level 108H, Carbon Dioxide Level 26, Blood Urea Nitrogen 17, Creatinine 0.7, Estimat Glomerular Filtration Rate > 60, Glucose Level 94, Calcium Level 9.4, Total Bilirubin 0.3, Aspartate Amino Transf (AST/SGOT) 88H, Alanine Aminotransferase (ALT/SGPT) 103H, Alkaline Phosphatase 70, Total Protein 7.2, Albumin 2.8L, Globulin 4.4, Albumin/Globulin Ratio 0.6L, Hepatitis A IgM Antibody [Pending], Hepatitis B Surface Antigen [Pending], Hepatitis B Core IgM Antibody [Pending], Hepatitis C Antibody [Pending] Height (Feet): 6 Height (Inches): 1.00 Weight (Pounds): 180 General Appearance: lethargic EENT: normal ENT inspection Neck: normal alignment Cardiovascular: normal peripheral pulses, normal rate, regular rhythm Respiratory/Chest: chest wall non-tender, lungs clear, normal breath sounds Abdomen: normal bowel sounds, non tender, soft Extremities: normal inspection Edema: no edema noted Arm (L), no edema noted Arm (R), no edema noted Leg (L), no edema noted Leg (R), no edema noted Pedal (L), no edema noted Pedal (R), no edema noted Generalized Neurologic: motor weakness Skin: normal pigmentation, warm/dry Objective bl hip and knee contracture ALONDRA SINGH Jun 25, 2017 10:30
--- NOTE | 2017-06-25 11:10 | General Progress Note ---
Assessment/Plan Problem List: (1) Constipation ICD Codes: K59.00 - Constipation, unspecified SNOMED: 58993419 (2) HTN (hypertension) ICD Codes: I10 - Essential (primary) hypertension SNOMED: 12069272 (3) Schizophrenia ICD Codes: F20.9 - Schizophrenia, unspecified SNOMED: 73377331 (4) Feeding by G-tube ICD Codes: Z93.1 - Gastrostomy status SNOMED: 012577110, 076386490 (5) LFTs abnormal ICD Codes: R79.89 - Other specified abnormal findings of blood chemistry SNOMED: 946243274 (6) Anemia ICD Codes: D64.9 - Anemia, unspecified SNOMED: 560333592 (7) Dysphagia ICD Codes: R13.10 - Dysphagia, unspecified SNOMED: 51959286, 237830700 Assessment/Plan GTF at 50 GT site care BID/prn - clean with NS, place gauze under retention ring then clamp. OB stool r/o GI bleed monitor H&H, prn transfusions bowel regime Prevacid GT fu labs abd us Subjective ROS Limited/Unobtainable: No Allergies: Coded Allergies: No Known Allergies (Unverified , 12/05/15) Objective Last 24 Hour Vital Signs Date Time Temp Pulse Resp B/P (MAP) Pulse Ox O2 Delivery O2 Flow Rate FiO2 06/25/17 08:00 97.5 93 20 109/70 93 Room Air 06/25/17 03:45 97.6 86 20 104/74 93 Nasal Cannula 06/25/17 00:00 98.0 80 20 121/75 93 Room Air 06/24/17 20:00 97.9 62 20 136/76 92 Room Air 06/24/17 19:56 92 18 Room Air 06/24/17 16:00 97.3 92 20 122/83 98 Room Air 06/24/17 12:00 97.7 97 19 122/70 96 Room Air Laboratory Tests 06/25/17 01:30: Vancomycin Level Trough 15.5H 06/25/17 08:10: White Blood Count 3.8L, Red Blood Count 4.58L, Hemoglobin 12.7L, Hematocrit 38.5L, Mean Corpuscular Volume 84, Mean Corpuscular Hemoglobin 27.8, Mean Corpuscular Hemoglobin Concent 33.1, Red Cell Distribution Width 15.8H, Platelet Count 124L, Mean Platelet Volume 11.2H, Neutrophils (%) (Auto) 49.0, Lymphocytes (%) (Auto) 28.0, Monocytes (%) (Auto) 16.7H, Eosinophils (%) (Auto) 5.5H, Basophils (%) (Auto) 0.8, Sodium Level 142, Potassium Level 4.0, Chloride Level 108H, Carbon Dioxide Level 26, Blood Urea Nitrogen 17, Creatinine 0.7, Estimat Glomerular Filtration Rate > 60, Glucose Level 94, Calcium Level 9.4, Total Bilirubin 0.3, Aspartate Amino Transf (AST/SGOT) 88H, Alanine Aminotransferase (ALT/SGPT) 103H, Alkaline Phosphatase 70, Total Protein 7.2, Albumin 2.8L, Globulin 4.4, Albumin/Globulin Ratio 0.6L, Hepatitis A IgM Antibody [Pending], Hepatitis B Surface Antigen [Pending], Hepatitis B Core IgM Antibody [Pending], Hepatitis C Antibody [Pending] Height (Feet): 6 Height (Inches): 1.00 Weight (Pounds): 180 General Appearance: no apparent distress EENT: normal ENT inspection Neck: supple Cardiovascular: normal rate Respiratory/Chest: decreased breath sounds Abdomen: normal bowel sounds, non tender, soft Extremities: non-tender FRITZ DELANEY Jun 25, 2017 11:10
[2017-06-25 11:43] VITALS: BP 119/55
[2017-06-25] MEDS ORDERED: NS 275ml ONE (15:08)
--- NOTE | 2017-06-25 15:08 | Pulmonology Progress Note ---
Assessment/Plan Assessment/Plan ASSESSMENT PNA elevated troponin COPD dysphagia, G tube elevated LFT anemia moderate AI e/lyte imbalance functional quadriplegia cachexia likely protein calorie malnutrition Alzheimer dementia schizophrenia PLAN OF CARE MS floor abx ID follows O2 HHN and CPT currently on RA pulse ox stable antitussive prn fup with CXR in am dyspnea was presumably due to PNA, resolved DVT prophylaxis venous Duplex BLE pending initially with elevated troponin last troponin negative, cardio follows per cardio: From cardiac standpoint, no evidence of ST and T-wave abnormalities, although the first two troponin I levels were slightly positive, he doubted that was an ACS, in view of the patient's mental status and physical condition, cardio decided not pursue any ischemic workup. BP management with Midodrine, remains stable ECHO with EF 55% and moderate AI CT head no acute IC pathology GI follows swallow eval did not pass - severe dysphagia resumed GT feeding, strict aspiration/reflux precautions, monitor tolerance , site care bowel regimen LFT still elevated, with only small trend down abdominal US pending get hepatitis potline monitor HH transfuse prn anemia w/up noted on Venofer IV nephro follows, monitor lytes and replace as needed avoid nephrotoxic dietary eval done, supplements added as per dietary recommendations case discussed and evaluated by supervising physician Subjective Allergies: Coded Allergies: No Known Allergies (Unverified , 12/05/15) Subjective no signs of respiratory distress Objective Last 24 Hour Vital Signs Date Time Temp Pulse Resp B/P (MAP) Pulse Ox O2 Delivery O2 Flow Rate FiO2 06/25/17 11:43 97.5 79 18 119/55 95 Room Air 06/25/17 08:00 97.5 93 20 109/70 93 Room Air 06/25/17 03:45 97.6 86 20 104/74 93 Nasal Cannula 06/25/17 00:00 98.0 80 20 121/75 93 Room Air 06/24/17 20:00 97.9 62 20 136/76 92 Room Air 06/24/17 19:56 92 18 Room Air 06/24/17 16:00 97.3 92 20 122/83 98 Room Air Objective GENERAL:NAD, bedridden male looking elderly than his biological age, nonverbal HEAD AND NECK: NC/AT, EOMI, No JVD. LUNGS: CTAB CARDIAC: RRR, S1 and S2. No g/m/r ABDOMEN: Soft, nontender, and nondistended< G tube . EXTREMITIES: No edema, Laboratory Tests 06/25/17 01:30: Vancomycin Level Trough 15.5H 06/25/17 08:10: White Blood Count 3.8L, Red Blood Count 4.58L, Hemoglobin 12.7L, Hematocrit 38.5L, Mean Corpuscular Volume 84, Mean Corpuscular Hemoglobin 27.8, Mean Corpuscular Hemoglobin Concent 33.1, Red Cell Distribution Width 15.8H, Platelet Count 124L, Mean Platelet Volume 11.2H, Neutrophils (%) (Auto) 49.0, Lymphocytes (%) (Auto) 28.0, Monocytes (%) (Auto) 16.7H, Eosinophils (%) (Auto) 5.5H, Basophils (%) (Auto) 0.8, Sodium Level 142, Potassium Level 4.0, Chloride Level 108H, Carbon Dioxide Level 26, Blood Urea Nitrogen 17, Creatinine 0.7, Estimat Glomerular Filtration Rate > 60, Glucose Level 94, Calcium Level 9.4, Total Bilirubin 0.3, Aspartate Amino Transf (AST/SGOT) 88H, Alanine Aminotransferase (ALT/SGPT) 103H, Alkaline Phosphatase 70, Total Protein 7.2, Albumin 2.8L, Globulin 4.4, Albumin/Globulin Ratio 0.6L, Hepatitis A IgM Antibody [Pending], Hepatitis B Surface Antigen [Pending], Hepatitis B Core IgM Antibody [Pending], Hepatitis C Antibody [Pending] Current Medications Medications (Trade) Dose Ordered Sig/Gloria Route PRN Reason Start Time Stop Time Status Last Admin Dose Admin Acetaminophen (Tylenol) 650 mg Q4H PRN ORAL T>100.5F 06/23/17 15:00 07/21/17 06:59 Al Hydroxide/Mg Hydroxide (Mylanta II) 30 ml Q6H PRN ORAL dyspepsia 06/23/17 13:30 07/21/17 13:29 Albuterol/ Ipratropium (DuoNeb 0.5-3(2.5)mg/3ml) 3 ml Q4H PRN HHN Shortness of Breath 06/23/17 14:00 06/26/17 13:59 Cefepime HCl 1 gm/ Dextrose 55 ml @ 110 mls/hr EVERY 12 HOURS IV 06/23/17 21:00 06/28/17 10:59 06/25/17 08:56 Docusate Sodium (Colace) 100 mg TWICE A DAY ORAL 06/24/17 18:00 07/24/17 17:59 06/25/17 08:56 Heparin Sodium (Porcine) (Heparin 5000 units/ml) 5,000 units EVERY 12 HOURS SUBQ 06/23/17 21:00 07/21/17 08:59 06/24/17 22:17 Iron Sucrose 100 mg/Sodium Chloride 60 ml @ 240 mls/hr BEDTIME IVPB 06/24/17 21:00 06/28/17 21:14 06/24/17 22:15 Lactulose (Cephulac) 10 gm THREE TIMES A DAY ORAL 06/24/17 13:00 07/24/17 12:59 06/25/17 13:44 Lorazepam (Ativan) 1 mg Q6H PRN ORAL For Anxiety 06/23/17 13:30 06/28/17 13:29 Midodrine (Pro-Amatine) 5 mg THREE TIMES A DAY ORAL 06/23/17 14:00 07/21/17 13:59 06/25/17 13:44 Nitroglycerin (Ntg) 0.4 mg Q5M PRN SL Prn Chest Pain 06/23/17 13:15 07/21/17 06:59 Olanzapine (ZyPREXA Zydis) 10 mg EVERY 12 HOURS ORAL 06/23/17 21:00 07/21/17 08:59 06/25/17 08:49 Ondansetron HCl (Zofran) 4 mg Q6H PRN IVP Nausea & Vomiting 06/23/17 13:30 07/21/17 13:29 Polyethylene Glycol (Miralax) 17 gm DAILYPRN PRN ORAL Constipation 06/24/17 07:00 07/21/17 06:59 Promethazine HCl/ Codeine (Phenergan with Codeine) 5 ml Q4H PRN ORAL For Cough 06/23/17 13:30 07/21/17 13:29 Temazepam (Restoril) 15 mg HSPRN PRN ORAL Insomnia 06/23/17 21:00 06/28/17 20:59 Vancomycin HCl (Vanco rx to dose) 1 ea DAILY PRN MISC Per rx protocol 06/23/17 13:30 07/23/17 13:29 Vancomycin/Sodium Chloride 250 ml @ 166.667 mls/hr Q12HR@0200,1400 IVPB 06/23/17 14:00 06/28/17 13:59 06/25/17 14:10 Rena Brooks NP ([facility]anchtein) Jun 25, 2017 15:08
--- NOTE | 2017-06-25 15:29 | Nephrology Progress Note ---
Assessment/Plan Assessment 1.hypovolemic hyponatremia 2. Proteinuria. 3. Hematuria. 4. Pneumonia. 5. Malnutrition. 6.hypomagnesemia Plan plan to continue current med replace mg monitoring renal function avoid any NSAID check in and out put closely Subjective Constitutional: Reports: no symptoms HEENT: Reports: no symptoms Genitourinary: Reports: no symptoms Neurologic/Psychiatric: Reports: no symptoms Subjective in NAD no events Objective Objective Last 24 Hour Vital Signs Date Time Temp Pulse Resp B/P (MAP) Pulse Ox O2 Delivery O2 Flow Rate FiO2 06/25/17 11:43 97.5 79 18 119/55 95 Room Air 06/25/17 08:00 97.5 93 20 109/70 93 Room Air 06/25/17 03:45 97.6 86 20 104/74 93 Nasal Cannula 06/25/17 00:00 98.0 80 20 121/75 93 Room Air 06/24/17 20:00 97.9 62 20 136/76 92 Room Air 06/24/17 19:56 92 18 Room Air 06/24/17 16:00 97.3 92 20 122/83 98 Room Air Laboratory Tests 06/25/17 01:30: Vancomycin Level Trough 15.5H 06/25/17 08:10: White Blood Count 3.8L, Red Blood Count 4.58L, Hemoglobin 12.7L, Hematocrit 38.5L, Mean Corpuscular Volume 84, Mean Corpuscular Hemoglobin 27.8, Mean Corpuscular Hemoglobin Concent 33.1, Red Cell Distribution Width 15.8H, Platelet Count 124L, Mean Platelet Volume 11.2H, Neutrophils (%) (Auto) 49.0, Lymphocytes (%) (Auto) 28.0, Monocytes (%) (Auto) 16.7H, Eosinophils (%) (Auto) 5.5H, Basophils (%) (Auto) 0.8, Sodium Level 142, Potassium Level 4.0, Chloride Level 108H, Carbon Dioxide Level 26, Blood Urea Nitrogen 17, Creatinine 0.7, Estimat Glomerular Filtration Rate > 60, Glucose Level 94, Calcium Level 9.4, Total Bilirubin 0.3, Aspartate Amino Transf (AST/SGOT) 88H, Alanine Aminotransferase (ALT/SGPT) 103H, Alkaline Phosphatase 70, Total Protein 7.2, Albumin 2.8L, Globulin 4.4, Albumin/Globulin Ratio 0.6L, Hepatitis A IgM Antibody [Pending], Hepatitis B Surface Antigen [Pending], Hepatitis B Core IgM Antibody [Pending], Hepatitis C Antibody [Pending] Height (Feet): 6 Height (Inches): 1.00 Weight (Pounds): 180 Objective HEAD AND NECK: No JVP. No LAD. No thyromegaly. Extraocular movements intact. Pupils are reactive to light and accommodation. LUNGS: Clear to auscultation. CARDIAC: Regular rate and rhythm. S1 and S2. No murmur. No rub. ABDOMEN: Soft, nontender, and nondistended. EXTREMITIES: No edema, clubbing, or cyanosis BARTOLOME OVALLES Jun 25, 2017 15:29
[2017-06-25 16:00] VITALS: BP 137/86
[2017-06-25] MEDS ORDERED: Albuterol/Ipratropium 3ml neb HHN PRN (16:00)
[2017-06-25 20:00] VITALS: BP 127/84
[2017-06-25] MEDS: Iron Sucrose 100 MG in NS 55 ML IVPB SCH (21:23)
--- NOTE | 2017-06-25 22:19 | General Progress Note ---
Assessment/Plan Assessment/Plan IMPRESSION/RECOMMENDATIONS: #. Leukopenia likely related to infectious, hepatitis and hiv is pending --> US of the abdomen is pending #. Anemia of iron deficiency. is on venofer #. History of deep venous thrombosis of the right lower extremity. no anticoagulation #. Thrombocytopenia, multifactorial. pending us of the abdomen #. Acute respiratory failure. #. Pneumonia resolved #. Chronic obstructive pulmonary disease. #. History of recent percutaneous endoscopic gastrostomy tube placement. #. Dysphagia. #. Acute renal failure. #. Malnutrition. #. Dehydration. #. Coronary artery disease. Subjective Constitutional: Reports: no symptoms Cardiovascular: Reports: no symptoms Respiratory: Reports: no symptoms Gastrointestinal/Abdominal: Reports: no symptoms Genitourinary: Reports: no symptoms Neurologic/Psychiatric: Reports: no symptoms Endocrine: Reports: no symptoms Hematologic/Lymphatic: Reports: anemia Allergies: Coded Allergies: No Known Allergies (Unverified , 12/05/15) Objective Last 24 Hour Vital Signs Date Time Temp Pulse Resp B/P (MAP) Pulse Ox O2 Delivery O2 Flow Rate FiO2 06/25/17 20:00 97.9 92 20 127/84 94 Room Air 06/25/17 16:00 97.7 82 19 137/86 92 Room Air 06/25/17 11:43 97.5 79 18 119/55 95 Room Air 06/25/17 08:00 97.5 93 20 109/70 93 Room Air 06/25/17 03:45 97.6 86 20 104/74 93 Nasal Cannula 06/25/17 00:00 98.0 80 20 121/75 93 Room Air Intake and Output 06/25/17 06/26/17 19:00 07:00 Intake Total 753.334 ml Balance 753.334 ml Free Water 60 ml IV Total 443.334 ml Tube Feeding 250 ml # Bowel Movements 1 Laboratory Tests 06/25/17 01:30: Vancomycin Level Trough 15.5H 06/25/17 08:10: White Blood Count 3.8L, Red Blood Count 4.58L, Hemoglobin 12.7L, Hematocrit 38.5L, Mean Corpuscular Volume 84, Mean Corpuscular Hemoglobin 27.8, Mean Corpuscular Hemoglobin Concent 33.1, Red Cell Distribution Width 15.8H, Platelet Count 124L, Mean Platelet Volume 11.2H, Neutrophils (%) (Auto) 49.0, Lymphocytes (%) (Auto) 28.0, Monocytes (%) (Auto) 16.7H, Eosinophils (%) (Auto) 5.5H, Basophils (%) (Auto) 0.8, Sodium Level 142, Potassium Level 4.0, Chloride Level 108H, Carbon Dioxide Level 26, Blood Urea Nitrogen 17, Creatinine 0.7, Estimat Glomerular Filtration Rate > 60, Glucose Level 94, Calcium Level 9.4, Total Bilirubin 0.3, Aspartate Amino Transf (AST/SGOT) 88H, Alanine Aminotransferase (ALT/SGPT) 103H, Alkaline Phosphatase 70, Total Protein 7.2, Albumin 2.8L, Globulin 4.4, Albumin/Globulin Ratio 0.6L, Hepatitis A IgM Antibody [Pending], Hepatitis B Surface Antigen [Pending], Hepatitis B Core IgM Antibody [Pending], Hepatitis C Antibody [Pending] Height (Feet): 6 Height (Inches): 1.00 Weight (Pounds): 180 General Appearance: confused EENT: TMs normal Neck: supple Cardiovascular: regular rhythm Respiratory/Chest: normal breath sounds Abdomen: non tender Genitourinary/Rectal: normal rectal exam Extremities: normal inspection Edema: no edema noted Leg (L), no edema noted Leg (R) Edema: mild edema Neurologic: alert Skin: warm/dry Gilberto Freedman Jun 25, 2017 22:19
--- NOTE | 2017-06-25 23:55 | Cardiology Progress Note ---
Assessment/Plan Assessment/Plan 1. Dyspnea, supposedly due to pneumonia. From cardiac standpoint, there is no evidence of ST and T-wave abnormalities, although the first two troponin I levels are slightly positive, doubt this is an ACS, in view of the patient's mental status and physical condition, I do not pursue any ischemic workup. 2. Hypotension, controlled with midodrine. Subjective Subjective Sinus rhythm at 92. Non-verbal. Objective Last 24 Hour Vital Signs Date Time Temp Pulse Resp B/P (MAP) Pulse Ox O2 Delivery O2 Flow Rate FiO2 06/25/17 20:00 97.9 92 20 127/84 94 Room Air 06/25/17 16:00 97.7 82 19 137/86 92 Room Air 06/25/17 11:43 97.5 79 18 119/55 95 Room Air 06/25/17 08:00 97.5 93 20 109/70 93 Room Air 06/25/17 03:45 97.6 86 20 104/74 93 Nasal Cannula 06/25/17 00:00 98.0 80 20 121/75 93 Room Air Intake and Output 06/25/17 06/26/17 19:00 07:00 Intake Total 753.334 ml Balance 753.334 ml Free Water 60 ml IV Total 443.334 ml Tube Feeding 250 ml # Bowel Movements 1 2D Echo: LVEF at 60-65%, Moderate AR Laboratory Tests Test 06/25/17 01:30 06/25/17 08:10 Vancomycin Level Trough 15.5 ug/mL (5.0-12.0) H White Blood Count 3.8 K/UL (4.8-10.8) L Red Blood Count 4.58 M/UL (4.70-6.10) L Hemoglobin 12.7 G/DL (14.2-18.0) L Hematocrit 38.5 % (42.0-52.0) L Mean Corpuscular Volume 84 FL (80-99) Mean Corpuscular Hemoglobin 27.8 PG (27.0-31.0) Mean Corpuscular Hemoglobin Concent 33.1 G/DL (32.0-36.0) Red Cell Distribution Width 15.8 % (11.6-14.8) H Platelet Count 124 K/UL (150-450) L Mean Platelet Volume 11.2 FL (6.5-10.1) H Neutrophils (%) (Auto) 49.0 % (45.0-75.0) Lymphocytes (%) (Auto) 28.0 % (20.0-45.0) Monocytes (%) (Auto) 16.7 % (1.0-10.0) H Eosinophils (%) (Auto) 5.5 % (0.0-3.0) H Basophils (%) (Auto) 0.8 % (0.0-2.0) Sodium Level 142 MMOL/L (136-145) Potassium Level 4.0 MMOL/L (3.5-5.1) Chloride Level 108 MMOL/L (98-107) H Carbon Dioxide Level 26 MMOL/L (21-32) Blood Urea Nitrogen 17 mg/dL (7-18) Creatinine 0.7 MG/DL (0.55-1.30) Estimat Glomerular Filtration Rate > 60 mL/min (>60) Glucose Level 94 MG/DL (74-106) Calcium Level 9.4 MG/DL (8.5-10.1) Total Bilirubin 0.3 MG/DL (0.2-1.0) Aspartate Amino Transf (AST/SGOT) 88 U/L (15-37) H Alanine Aminotransferase (ALT/SGPT) 103 U/L (12-78) H Alkaline Phosphatase 70 U/L (46-116) Total Protein 7.2 G/DL (6.4-8.2) Albumin 2.8 G/DL (3.4-5.0) L Globulin 4.4 g/dL Albumin/Globulin Ratio 0.6 (1.0-2.7) L Hepatitis A IgM Antibody Pending Hepatitis B Surface Antigen Pending Hepatitis B Core IgM Antibody Pending Hepatitis C Antibody Pending Objective HEENT: Atraumatic and normocephalic. Pupils are equal, round, and reactive to light and accommodation. Extraocular motions intact. Conjunctival pallor is present. NECK: JVP less than 5 cm. No carotid bruit. Carotid upstroke is 2+ bilaterally. CARDIOVASCULAR: Normal S1, S2. Regular rate and rhythm. 2/6 MSM at LSB, no gallops, or rubs. PMI is at 4th intercostal space at the midclavicular line. LUNGS: Diminished breath sounds in both bases. ABDOMEN: Soft, nontender, and nondistended. No hepatosplenomegaly. Presence of a G-tube. EXTREMITIES: No evidence of edema, clubbing, or cyanosis. VOLODYMYR BLANCHARD Jun 25, 2017 23:55
[2017-06-26] VITALS: BP 123/81
[2017-06-26] MEDS: Vancomycin 750mg/NS 250ml 250 ML IVPB SCH ×2 (02:16→14:19)
[2017-06-26 04:22] VITALS: BP 109/71
[2017-06-26 07:19] LABS: BASOPHILS % (AUTO) 0.7 % (0.0-2.0); EOSINOPHILS % (AUTO) 4.4 % (0.0-3.0); LYMPHOCYTES % (AUTO) 22.9 % (20.0-45.0); MEAN CORPUSCULAR HEMOGLOBIN 27.5 PG (27.0-31.0); MEAN CORPUSCULAR HGB CONC 32.8 G/DL (32.0-36.0); MEAN CORPUSCULAR VOLUME 84 FL (80-99); MEAN PLATELET VOLUME 10.2 FL (6.5-10.1); MONOCYTES % (AUTO) 15.8 % (1.0-10.0); NEUTROPHILS % (AUTO) 56.3 % (45.0-75.0); PLATELET COUNT 124 K/UL (150-450); RED BLOOD COUNT 4.82 M/UL (4.70-6.10); RED CELL DISTRIBUTION WIDTH 15.5 % (11.6-14.8); WHITE BLOOD COUNT 4.8 K/UL (4.8-10.8)
[2017-06-26 07:50] LABS: ANION GAP 7 (5-15); CALCIUM 9.6 MG/DL (8.5-10.1); CARBON DIOXIDE 26 MMOL/L (21-32); CHLORIDE 107 MMOL/L (98-107); CREATININE 0.8 MG/DL (0.55-1.30); GLOMERULAR FILTRATION RATE > 60 mL/min (>60); SODIUM 140 MMOL/L (136-145)
[2017-06-26 08:00] VITALS: BP 105/71
--- NOTE | 2017-06-26 08:32 | Consultation ---
DATE OF CONSULTATION: 06/24/2017 HEMATOLOGY/ONCOLOGY CONSULTATION CONSULTING PHYSICIAN: Gilberto Freedman M.D. REFERRING PHYSICIAN: Johan Rangel D.O. ATTENDING PHYSICIAN: Brock Anderson[e REASON FOR CONSULTATION: Evaluation of anemia. IDENTIFICATION DATA: Dear Dr. Johan Rangel: The patient is a pleasant 66-year-old male who I have seen in the past at [facility] back in January of 2017. At that time, he was noted to have leukocytosis, anemia of chronic disease, anemia of iron deficiency, kidney disease, and thrombocytopenia. He has a history of DVT as well of the right lower extremity. He was anticoagulated with Coumadin. At this time, he presents to [facility] shortness of breath. Chest x-ray showed evidence of pneumonia. We will start him on antibiotics. Admitted to [facility] with hypertension. Cardiology consult as well as Pulmonary team as well as Hematology/Oncology. PAST MEDICAL HISTORY: COPD, hypertension, encephalopathy, renal failure, malnutrition, 01:30, DVT, and history of aspiration pneumonia. PAST SURGICAL HISTORY: Status post PEG tube. MEDICATIONS: Tylenol, Boniva, 01:37, DuoNeb, Ativan, 01:40, nitroglycerin, Zyprexa, Zofran, 01:42. ALLERGIES: No known drug allergies. SOCIAL HISTORY: He lives in a correction facility. No alcohol, tobacco, or illicit drug use. FAMILY HISTORY: Noncontributory. REVIEW OF SYSTEMS: The patient is nonverbal. Difficult to obtain. PHYSICAL EXAMINATION: GENERAL: The patient is in no acute distress. VITAL SIGNS: Reviewed. PULMONARY: Decreased breath sounds. 01:56. CARDIOVASCULAR: Regular rate. No S3 or S4. ABDOMEN: Soft, nontender, and nondistended. Positive PEG tube. EXTREMITIES: No cyanosis, clubbing, or edema. NEUROLOGIC: 02:08 LABORATORY DATA: WBC is 4, hemoglobin 12, hematocrit 02:11 reviewed. Ferritin of 59 and TIBC of 227. BUN of 17 and creatinine 0.8. AST of 109 and and ALT of 115. Folate greater than 20. Currently lactulose, cefepime, heparin subcutaneous, vancomycin, 02:31. We will begin the patient on Fioricet 02:49 does IV. ASSESSMENT AND RECOMMENDATIONS: 1. History of deep venous thrombosis . Currently, the patient recently had patent DVT system. We will again obtain duplex of lower extremities to reevaluate if the patient has any evidence of DVT. However, at this time, we will hold off on anticoagulation. 2. Anemia secondary to chronic disease. 3. Anemia secondary to iron deficiency. Begin the patient on IV iron for several doses. 4. Leukopenia, potentially secondary to underlying infection. He is on antibiotics. 5. Thrombocytopenia secondary to underlying infection. Continue to closely monitor. 6. Thrombocytopenia, rule out hepatitis, HIV. We will send out for hepatitis panel and HIV. I appreciate the consultation. Gilberto Freedman M.D. DR: LAILA JOB#: [id number] CC:
[2017-06-26] MEDS: Docusate 100mg cap ORAL SCH ×2 (09:00→19:10)
[2017-06-26] MEDS: Cefepime HCl 1 GM in D5W 55 ML IV SCH ×2 (10:29→23:04)
[2017-06-26] MEDS: Lactulose 10gm/15ml UDC ORAL SCH ×3 (10:30→18:00)
[2017-06-26] MEDS: ZyPREXA Zydis 10mg tab ORAL SCH ×2 (10:30→23:11)
[2017-06-26] MEDS: Heparin 5000 units/ml inj SUBQ SCH ×2 (10:37→21:00)
--- NOTE | 2017-06-26 10:50 | Diagnostic Imaging Report ---
Indication: SOB Technique: One view of the chest Comparison: 06/24/2017 Findings: Left hemidiaphragm is elevated. There is left basilar atelectasis. Lungs and pleural spaces are otherwise clear. Findings are unchanged Impression: Unchanged, over 2 days, findings as above.
--- NOTE | 2017-06-26 11:57 | General Progress Note ---
Assessment/Plan Problem List: (1) UTI (urinary tract infection) ICD Codes: N39.0 - Urinary tract infection, site not specified SNOMED: 37800638 (2) Acute kidney injury superimposed on chronic kidney disease ICD Codes: S37.009A - Unspecified injury of unspecified kidney, initial encounter; N18.9 - Chronic kidney disease, unspecified SNOMED: 16275841 (3) Encounter for PEG (percutaneous endoscopic gastrostomy) ICD Codes: Z43.1 - Encounter for attention to gastrostomy SNOMED: 726615389, 989801890 (4) HCAP (healthcare-associated pneumonia) ICD Codes: J18.9 - Pneumonia, unspecified organism SNOMED: 735573292 (5) Encephalopathy ICD Codes: G93.40 - Encephalopathy, unspecified SNOMED: 98793112, 243216685 (6) COPD (chronic obstructive pulmonary disease) ICD Codes: J44.9 - Chronic obstructive pulmonary disease, unspecified SNOMED: 41197430 (7) Cachexia ICD Codes: R64 - Cachexia SNOMED: 240005454 (8) Schizophrenia ICD Codes: F20.9 - Schizophrenia, unspecified SNOMED: 48395244 (9) Feeding by G-tube ICD Codes: Z93.1 - Gastrostomy status SNOMED: 740015463, 887516889 (10) Pneumonia ICD Codes: J18.9 - Pneumonia, unspecified organism SNOMED: 351646417 Qualifiers: Qualified Codes: J18.9 - Pneumonia, unspecified organism Status: stable, progressing, tolerating diet Assessment/Plan o2, pulm tx abx ot pt diet cbc bmp am ltach eval Subjective Constitutional: Reports: weakness Allergies: Coded Allergies: No Known Allergies (Unverified , 12/05/15) All Systems: reviewed and negative except above Subjective sleepy Objective Last 24 Hour Vital Signs Date Time Temp Pulse Resp B/P (MAP) Pulse Ox O2 Delivery O2 Flow Rate FiO2 06/26/17 08:00 98.2 115 20 105/71 94 Room Air 06/26/17 04:22 99.0 121 20 109/71 89 Room Air 06/26/17 01:34 96 20 Room Air 21 06/26/17 00:00 97.7 104 20 123/81 92 Room Air 06/25/17 20:00 97.9 92 20 127/84 94 Room Air 06/25/17 16:00 97.7 82 19 137/86 92 Room Air Laboratory Tests 06/26/17 06:20: White Blood Count 4.8, Red Blood Count 4.82, Hemoglobin 13.2L, Hematocrit 40.4L , Mean Corpuscular Volume 84, Mean Corpuscular Hemoglobin 27.5, Mean Corpuscular Hemoglobin Concent 32.8, Red Cell Distribution Width 15.5H, Platelet Count 124L, Mean Platelet Volume 10.2H, Neutrophils (%) (Auto) 56.3, Lymphocytes (%) (Auto) 22.9, Monocytes (%) (Auto) 15.8H, Eosinophils (%) (Auto) 4.4H, Basophils (%) (Auto) 0.7, Sodium Level 140, Potassium Level 4.0, Chloride Level 107, Carbon Dioxide Level 26, Anion Gap 7, Blood Urea Nitrogen 17, Creatinine 0.8, Estimat Glomerular Filtration Rate > 60, Glucose Level 123H, Calcium Level 9.6 Height (Feet): 6 Height (Inches): 1.00 Weight (Pounds): 180 General Appearance: lethargic EENT: normal ENT inspection Neck: normal alignment Cardiovascular: normal peripheral pulses, normal rate, regular rhythm Respiratory/Chest: chest wall non-tender, lungs clear, normal breath sounds Abdomen: normal bowel sounds, non tender, soft Extremities: normal inspection Edema: no edema noted Arm (L), no edema noted Arm (R), no edema noted Leg (L), no edema noted Leg (R), no edema noted Pedal (L), no edema noted Pedal (R), no edema noted Generalized Neurologic: motor weakness Skin: normal pigmentation, warm/dry Objective bl hip and knee contracture ALONDRA SINGH Jun 26, 2017 11:57
[2017-06-26 12:00] VITALS: BP 103/76
--- NOTE | 2017-06-26 13:39 | GI Progress Note ---
Assessment/Plan Problems: (1) Bleeding from gastrostomy tube site ICD Codes: K94.21 - Gastrostomy hemorrhage SNOMED: 878688891 (2) Dysphagia ICD Codes: R13.10 - Dysphagia, unspecified SNOMED: 93229027, 182517537 (3) Anemia ICD Codes: D64.9 - Anemia, unspecified SNOMED: 605375770 (4) Alzheimer's dementia ICD Codes: G30.9 - Alzheimer's disease, unspecified SNOMED: 52862272 (5) Feeding by G-tube ICD Codes: Z93.1 - Gastrostomy status SNOMED: 967073829, 487573389 Status: stable Status Narrative Discussed with Dr. Dinh. Assessment/Plan GTF at 50 GT site care BID/prn - clean with NS, place gauze under retention ring then clamp OB stool r/o GI bleed monitor H&H, prn transfusions bowel regime Prevacid GT fu labs The patient was seen and examined at bedside and all new and available data was reviewed in the patients chart. I agree with the above findings, impression and plan. (Patient seen earlier today. Signature stamp does not reflect patient encounter time.). - Marilu Dinh MD Subjective Subjective limited Objective Last 24 Hour Vital Signs Date Time Temp Pulse Resp B/P (MAP) Pulse Ox O2 Delivery O2 Flow Rate FiO2 06/26/17 12:00 99.1 111 20 103/76 93 Room Air 06/26/17 08:23 90 20 Room Air 06/26/17 08:00 98.2 115 20 105/71 94 Room Air 06/26/17 04:22 99.0 121 20 109/71 89 Room Air 06/26/17 01:34 96 20 Room Air 21 06/26/17 00:00 97.7 104 20 123/81 92 Room Air 06/25/17 20:00 97.9 92 20 127/84 94 Room Air 06/25/17 16:00 97.7 82 19 137/86 92 Room Air Laboratory Tests Test 06/26/17 06:20 06/26/17 13:25 White Blood Count 4.8 K/UL (4.8-10.8) Red Blood Count 4.82 M/UL (4.70-6.10) Hemoglobin 13.2 G/DL (14.2-18.0) L Hematocrit 40.4 % (42.0-52.0) L Mean Corpuscular Volume 84 FL (80-99) Mean Corpuscular Hemoglobin 27.5 PG (27.0-31.0) Mean Corpuscular Hemoglobin Concent 32.8 G/DL (32.0-36.0) Red Cell Distribution Width 15.5 % (11.6-14.8) H Platelet Count 124 K/UL (150-450) L Mean Platelet Volume 10.2 FL (6.5-10.1) H Neutrophils (%) (Auto) 56.3 % (45.0-75.0) Lymphocytes (%) (Auto) 22.9 % (20.0-45.0) Monocytes (%) (Auto) 15.8 % (1.0-10.0) H Eosinophils (%) (Auto) 4.4 % (0.0-3.0) H Basophils (%) (Auto) 0.7 % (0.0-2.0) Sodium Level 140 MMOL/L (136-145) Potassium Level 4.0 MMOL/L (3.5-5.1) Chloride Level 107 MMOL/L (98-107) Carbon Dioxide Level 26 MMOL/L (21-32) Anion Gap 7 (5-15) Blood Urea Nitrogen 17 mg/dL (7-18) Creatinine 0.8 MG/DL (0.55-1.30) Estimat Glomerular Filtration Rate > 60 mL/min (>60) Glucose Level 123 MG/DL (74-106) H Calcium Level 9.6 MG/DL (8.5-10.1) Vancomycin Level Trough Pending Height (Feet): 6 Height (Inches): 1.00 Weight (Pounds): 180 General Appearance: no apparent distress Cardiovascular: normal rate Respiratory/Chest: no respiratory distress Abdominal Exam: normal bowel sounds, non tender, soft, GT site - min drainage Beth Carver N.PMaximo Jun 26, 2017 13:39 FRITZ DINH Jun 27, 2017 15:54
--- NOTE | 2017-06-26 16:50 | Nephrology Progress Note ---
Assessment/Plan Assessment 1.hypovolemic hyponatremia 2. Proteinuria. 3. Hematuria. 4. Pneumonia. 5. Malnutrition. 6.hypomagnesemia Plan plan to continue current med replace mg monitoring renal function avoid any NSAID check in and out put closely Subjective ROS Limited/Unobtainable: Yes Constitutional: Reports: no symptoms HEENT: Reports: no symptoms Neurologic/Psychiatric: Reports: no symptoms Subjective in NAD no events Objective Objective Last 24 Hour Vital Signs Date Time Temp Pulse Resp B/P (MAP) Pulse Ox O2 Delivery O2 Flow Rate FiO2 06/26/17 12:00 99.1 111 20 103/76 93 Room Air 06/26/17 08:23 90 20 Room Air 21 06/26/17 08:00 98.2 115 20 105/71 94 Room Air 06/26/17 04:22 99.0 121 20 109/71 89 Room Air 06/26/17 01:34 96 20 Room Air 21 06/26/17 00:00 97.7 104 20 123/81 92 Room Air 06/25/17 20:00 97.9 92 20 127/84 94 Room Air Laboratory Tests 06/26/17 06:20: White Blood Count 4.8, Red Blood Count 4.82, Hemoglobin 13.2L, Hematocrit 40.4L , Mean Corpuscular Volume 84, Mean Corpuscular Hemoglobin 27.5, Mean Corpuscular Hemoglobin Concent 32.8, Red Cell Distribution Width 15.5H, Platelet Count 124L, Mean Platelet Volume 10.2H, Neutrophils (%) (Auto) 56.3, Lymphocytes (%) (Auto) 22.9, Monocytes (%) (Auto) 15.8H, Eosinophils (%) (Auto) 4.4H, Basophils (%) (Auto) 0.7, Sodium Level 140, Potassium Level 4.0, Chloride Level 107, Carbon Dioxide Level 26, Anion Gap 7, Blood Urea Nitrogen 17, Creatinine 0.8, Estimat Glomerular Filtration Rate > 60, Glucose Level 123H, Calcium Level 9.6 06/26/17 13:25: Vancomycin Level Trough 18.8H Height (Feet): 6 Height (Inches): 1.00 Weight (Pounds): 180 Objective HEAD AND NECK: No JVP. No LAD. No thyromegaly. Extraocular movements intact. Pupils are reactive to light and accommodation. LUNGS: Clear to auscultation. CARDIAC: Regular rate and rhythm. S1 and S2. No murmur. No rub. ABDOMEN: Soft, nontender, and nondistended. EXTREMITIES: No edema, clubbing, or cyanosis BARTOLOME OVALLES Jun 26, 2017 16:49
[2017-06-26 17:00] VITALS: BP 104/69
[2017-06-26 20:04] VITALS: BP 114/76
--- NOTE | 2017-06-26 22:15 | General Progress Note ---
Assessment/Plan Assessment/Plan IMPRESSION/RECOMMENDATIONS: #. Leukopenia likely related to Hepatitis C --> US of the abdomen is pending #. Anemia of iron deficiency. is on venofer #. History of deep venous thrombosis of the right lower extremity. no anticoagulation #. Thrombocytopenia, multifactorial. pending us of the abdomen #. Acute respiratory failure. #. Pneumonia resolved #. Chronic obstructive pulmonary disease. #. History of recent percutaneous endoscopic gastrostomy tube placement. #. Dysphagia. #. Acute renal failure. #. Malnutrition. #. Dehydration. #. Coronary artery disease. Subjective Constitutional: Reports: no symptoms HEENT: Reports: no symptoms Cardiovascular: Reports: no symptoms Respiratory: Reports: no symptoms Gastrointestinal/Abdominal: Reports: no symptoms Genitourinary: Reports: no symptoms Neurologic/Psychiatric: Reports: no symptoms Endocrine: Reports: no symptoms Hematologic/Lymphatic: Reports: no symptoms Allergies: Coded Allergies: No Known Allergies (Unverified , 12/05/15) Objective Last 24 Hour Vital Signs Date Time Temp Pulse Resp B/P (MAP) Pulse Ox O2 Delivery O2 Flow Rate FiO2 06/26/17 20:04 97.0 56 18 114/76 90 Room Air 06/26/17 17:00 98.2 112 18 104/69 93 Room Air 06/26/17 12:00 99.1 111 20 103/76 93 Room Air 06/26/17 08:23 90 20 Room Air 21 06/26/17 08:00 98.2 115 20 105/71 94 Room Air 06/26/17 04:22 99.0 121 20 109/71 89 Room Air 06/26/17 01:34 96 20 Room Air 21 06/26/17 00:00 97.7 104 20 123/81 92 Room Air Intake and Output 06/26/17 06/27/17 19:00 07:00 Output Total 400 ml Balance -400 ml Output Urine Total 400 ml Laboratory Tests 06/26/17 06:20: White Blood Count 4.8, Red Blood Count 4.82, Hemoglobin 13.2L, Hematocrit 40.4L , Mean Corpuscular Volume 84, Mean Corpuscular Hemoglobin 27.5, Mean Corpuscular Hemoglobin Concent 32.8, Red Cell Distribution Width 15.5H, Platelet Count 124L, Mean Platelet Volume 10.2H, Neutrophils (%) (Auto) 56.3, Lymphocytes (%) (Auto) 22.9, Monocytes (%) (Auto) 15.8H, Eosinophils (%) (Auto) 4.4H, Basophils (%) (Auto) 0.7, Sodium Level 140, Potassium Level 4.0, Chloride Level 107, Carbon Dioxide Level 26, Anion Gap 7, Blood Urea Nitrogen 17, Creatinine 0.8, Estimat Glomerular Filtration Rate > 60, Glucose Level 123H, Calcium Level 9.6 06/26/17 13:25: Vancomycin Level Trough 18.8H Height (Feet): 6 Height (Inches): 1.00 Weight (Pounds): 180 General Appearance: no apparent distress EENT: normal ENT inspection Neck: normal alignment Abdomen: normal bowel sounds 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
--- NOTE | 2017-06-26 22:34 | Pulmonology Progress Note ---
Assessment/Plan Problems: (1) Pneumonia (2) Elevated troponin (3) Schizophrenia (4) COPD (chronic obstructive pulmonary disease) (5) Alzheimer's dementia (6) Feeding by G-tube (7) Cachexia Assessment/Plan improving check cultures continue abx med/surg cxr reviewed, small atelectasis at LLL Subjective ROS Limited/Unobtainable: No Constitutional: Reports: no symptoms HEENT: Repors: no symptoms Allergies: Coded Allergies: No Known Allergies (Unverified , 12/05/15) Objective Last 24 Hour Vital Signs Date Time Temp Pulse Resp B/P (MAP) Pulse Ox O2 Delivery O2 Flow Rate FiO2 06/26/17 20:04 97.0 56 18 114/76 90 Room Air 06/26/17 17:00 98.2 112 18 104/69 93 Room Air 06/26/17 12:00 99.1 111 20 103/76 93 Room Air 06/26/17 08:23 90 20 Room Air 21 06/26/17 08:00 98.2 115 20 105/71 94 Room Air 06/26/17 04:22 99.0 121 20 109/71 89 Room Air 06/26/17 01:34 96 20 Room Air 21 06/26/17 00:00 97.7 104 20 123/81 92 Room Air Intake and Output 06/26/17 06/27/17 19:00 07:00 Output Total 400 ml Balance -400 ml Output Urine Total 400 ml General Appearance: WD/WN HEENT: normocephalic, atraumatic Respiratory/Chest: chest wall non-tender, lungs clear Cardiovascular: normal peripheral pulses, normal rate Abdomen: normal bowel sounds, soft, non tender Genitourinary: normal external genitalia 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, no motor/sensory deficits Laboratory Tests 06/26/17 06:20: White Blood Count 4.8, Red Blood Count 4.82, Hemoglobin 13.2L, Hematocrit 40.4L , Mean Corpuscular Volume 84, Mean Corpuscular Hemoglobin 27.5, Mean Corpuscular Hemoglobin Concent 32.8, Red Cell Distribution Width 15.5H, Platelet Count 124L, Mean Platelet Volume 10.2H, Neutrophils (%) (Auto) 56.3, Lymphocytes (%) (Auto) 22.9, Monocytes (%) (Auto) 15.8H, Eosinophils (%) (Auto) 4.4H, Basophils (%) (Auto) 0.7, Sodium Level 140, Potassium Level 4.0, Chloride Level 107, Carbon Dioxide Level 26, Anion Gap 7, Blood Urea Nitrogen 17, Creatinine 0.8, Estimat Glomerular Filtration Rate > 60, Glucose Level 123H, Calcium Level 9.6 06/26/17 13:25: Vancomycin Level Trough 18.8H Current Medications Medications (Trade) Dose Ordered Sig/Gloria Route PRN Reason Start Time Stop Time Status Last Admin Dose Admin Acetaminophen (Tylenol) 650 mg Q4H PRN ORAL T>100.5F 06/23/17 15:00 07/21/17 06:59 Al Hydroxide/Mg Hydroxide (Mylanta II) 30 ml Q6H PRN ORAL dyspepsia 06/23/17 13:30 07/21/17 13:29 Albuterol/ Ipratropium (DuoNeb 0.5-3(2.5)mg/3ml) 3 ml Q4H PRN HHN Shortness of Breath 06/25/17 16:00 06/28/17 15:59 Cefepime HCl 1 gm/ Dextrose 55 ml @ 110 mls/hr EVERY 12 HOURS IV 06/23/17 21:00 06/28/17 10:59 06/26/17 10:29 Docusate Sodium (Colace) 100 mg TWICE A DAY ORAL 06/24/17 18:00 07/24/17 17:59 06/26/17 19:10 Heparin Sodium (Porcine) (Heparin 5000 units/ml) 5,000 units EVERY 12 HOURS SUBQ 06/23/17 21:00 07/21/17 08:59 06/26/17 10:37 Iron Sucrose 100 mg/Sodium Chloride 60 ml @ 240 mls/hr BEDTIME IVPB 06/24/17 21:00 06/28/17 21:14 06/25/17 21:23 Lactulose (Cephulac) 10 gm THREE TIMES A DAY ORAL 06/24/17 13:00 07/24/17 12:59 06/26/17 18:00 Lorazepam (Ativan) 1 mg Q6H PRN ORAL For Anxiety 06/23/17 13:30 06/28/17 13:29 Midodrine (Pro-Amatine) 5 mg THREE TIMES A DAY ORAL 06/23/17 14:00 07/21/17 13:59 06/26/17 19:10 Nitroglycerin (Ntg) 0.4 mg Q5M PRN SL Prn Chest Pain 06/23/17 13:15 07/21/17 06:59 Olanzapine (ZyPREXA Zydis) 10 mg EVERY 12 HOURS ORAL 06/23/17 21:00 07/21/17 08:59 06/26/17 10:30 Ondansetron HCl (Zofran) 4 mg Q6H PRN IVP Nausea & Vomiting 06/23/17 13:30 07/21/17 13:29 Polyethylene Glycol (Miralax) 17 gm DAILYPRN PRN ORAL Constipation 06/24/17 07:00 07/21/17 06:59 Promethazine HCl/ Codeine (Phenergan with Codeine) 5 ml Q4H PRN ORAL For Cough 06/23/17 13:30 07/21/17 13:29 Temazepam (Restoril) 15 mg HSPRN PRN ORAL Insomnia 06/23/17 21:00 06/28/17 20:59 Vancomycin HCl (Vanco rx to dose) 1 ea DAILY PRN MISC Per rx protocol 06/23/17 13:30 07/23/17 13:29 Vancomycin/Sodium Chloride 250 ml @ 166.667 mls/hr Q12HR@0200,1400 IVPB 06/23/17 14:00 06/28/17 13:59 06/26/17 14:19 ALMA LINDO Jun 26, 2017 22:34
[2017-06-26] MEDS: Iron Sucrose 100 MG in NS 55 ML IVPB SCH (23:03)
--- NOTE | 2017-06-26 23:53 | Cardiology Progress Note ---
Assessment/Plan Assessment/Plan 1. Dyspnea, supposedly due to pneumonia. From cardiac standpoint, there is no evidence of ST and T-wave abnormalities, although the first two troponin I levels are slightly positive, doubt this is an ACS, in view of the patient's mental status and physical condition, I do not pursue any ischemic workup. 2. Hypotension, controlled with midodrine. Subjective Subjective Transferred to the med-surg unit. No cardiac events. Non-verbal. Objective Last 24 Hour Vital Signs Date Time Temp Pulse Resp B/P (MAP) Pulse Ox O2 Delivery O2 Flow Rate FiO2 06/26/17 20:04 97.0 56 18 114/76 90 Room Air 06/26/17 17:00 98.2 112 18 104/69 93 Room Air 06/26/17 12:00 99.1 111 20 103/76 93 Room Air 06/26/17 08:23 90 20 Room Air 21 06/26/17 08:00 98.2 115 20 105/71 94 Room Air 06/26/17 04:22 99.0 121 20 109/71 89 Room Air 06/26/17 01:34 96 20 Room Air 21 06/26/17 00:00 97.7 104 20 123/81 92 Room Air Intake and Output 06/26/17 06/27/17 19:00 07:00 Output Total 400 ml Balance -400 ml Output Urine Total 400 ml 2D Echo: LVEF at 60-65%, Moderate AR Laboratory Tests Test 06/26/17 06:20 06/26/17 13:25 White Blood Count 4.8 K/UL (4.8-10.8) Red Blood Count 4.82 M/UL (4.70-6.10) Hemoglobin 13.2 G/DL (14.2-18.0) L Hematocrit 40.4 % (42.0-52.0) L Mean Corpuscular Volume 84 FL (80-99) Mean Corpuscular Hemoglobin 27.5 PG (27.0-31.0) Mean Corpuscular Hemoglobin Concent 32.8 G/DL (32.0-36.0) Red Cell Distribution Width 15.5 % (11.6-14.8) H Platelet Count 124 K/UL (150-450) L Mean Platelet Volume 10.2 FL (6.5-10.1) H Neutrophils (%) (Auto) 56.3 % (45.0-75.0) Lymphocytes (%) (Auto) 22.9 % (20.0-45.0) Monocytes (%) (Auto) 15.8 % (1.0-10.0) H Eosinophils (%) (Auto) 4.4 % (0.0-3.0) H Basophils (%) (Auto) 0.7 % (0.0-2.0) Sodium Level 140 MMOL/L (136-145) Potassium Level 4.0 MMOL/L (3.5-5.1) Chloride Level 107 MMOL/L (98-107) Carbon Dioxide Level 26 MMOL/L (21-32) Anion Gap 7 (5-15) Blood Urea Nitrogen 17 mg/dL (7-18) Creatinine 0.8 MG/DL (0.55-1.30) Estimat Glomerular Filtration Rate > 60 mL/min (>60) Glucose Level 123 MG/DL (74-106) H Calcium Level 9.6 MG/DL (8.5-10.1) Vancomycin Level Trough 18.8 ug/mL (5.0-12.0) H Objective HEENT: Atraumatic and normocephalic. Pupils are equal, round, and reactive to light and accommodation. Extraocular motions intact. Conjunctival pallor is present. NECK: JVP less than 5 cm. No carotid bruit. Carotid upstroke is 2+ bilaterally. CARDIOVASCULAR: Normal S1, S2. Regular rate and rhythm. 2/6 MSM at LSB, no gallops, or rubs. PMI is at 4th intercostal space at the midclavicular line. LUNGS: Diminished breath sounds in both bases. ABDOMEN: Soft, nontender, and nondistended. No hepatosplenomegaly. Presence of a G-tube. EXTREMITIES: No evidence of edema, clubbing, or cyanosis. VOLODYMYR BLANCHARD Jun 26, 2017 23:53
[2017-06-27] VITALS: BP 109/64
[2017-06-27] MEDS: Vancomycin 750mg/NS 250ml 250 ML IVPB SCH ×2 (02:00→13:10)
[2017-06-27 04:00] VITALS: BP 107/74
[2017-06-27 07:07] LABS: BASOPHILS % (AUTO) 0.7 % (0.0-2.0); EOSINOPHILS % (AUTO) 1.9 % (0.0-3.0); MEAN CORPUSCULAR HGB CONC 33.3 G/DL (32.0-36.0); MEAN CORPUSCULAR VOLUME 84 FL (80-99); MEAN PLATELET VOLUME 11.4 FL (6.5-10.1); MONOCYTES % (AUTO) 13.9 % (1.0-10.0); NEUTROPHILS % (AUTO) 59.6 % (45.0-75.0); PLATELET COUNT 114 K/UL (150-450); RED BLOOD COUNT 4.46 M/UL (4.70-6.10); RED CELL DISTRIBUTION WIDTH 15.5 % (11.6-14.8); WHITE BLOOD COUNT 6.6 K/UL (4.8-10.8)
[2017-06-27 07:40] LABS: ANION GAP 8 mmol/L (5-15); CALCIUM 9.4 MG/DL (8.5-10.1); CARBON DIOXIDE 26 MMOL/L (21-32); CHLORIDE 107 MMOL/L (98-107); CREATININE 0.8 MG/DL (0.55-1.30); GLOMERULAR FILTRATION RATE > 60 mL/min (>60); POTASSIUM 3.9 MMOL/L (3.5-5.1); SODIUM 141 MMOL/L (136-145)
[2017-06-27 08:00] VITALS: BP 91/59
[2017-06-27] MEDS: ZyPREXA Zydis 10mg tab ORAL SCH (08:30)
[2017-06-27] MEDS: Docusate 100mg cap ORAL SCH (08:30)
[2017-06-27] MEDS: Lactulose 10gm/15ml UDC ORAL SCH ×2 (08:30→13:16)
[2017-06-27] MEDS: Heparin 5000 units/ml inj SUBQ SCH (08:31)
[2017-06-27] MEDS: Cefepime HCl 1 GM in D5W 55 ML IV SCH (09:00)
--- NOTE | 2017-06-27 09:09 | Nephrology Progress Note ---
Assessment/Plan Assessment 1.hypovolemic hyponatremia 2. Proteinuria. 3. Hematuria. 4. Pneumonia. 5. Malnutrition. 6.hypomagnesemia Plan plan to continue current med replace mg monitoring renal function avoid any NSAID check in and out put closely Subjective Constitutional: Reports: no symptoms HEENT: Reports: no symptoms Neurologic/Psychiatric: Reports: no symptoms Subjective in NAD no events Objective Objective Last 24 Hour Vital Signs Date Time Temp Pulse Resp B/P (MAP) Pulse Ox O2 Delivery O2 Flow Rate FiO2 06/27/17 08:00 97.9 108 20 91/59 100 Room Air 06/27/17 04:00 97.0 97 18 107/74 90 Room Air 06/27/17 00:00 98.4 96 20 109/64 90 Room Air 06/26/17 20:04 97.0 56 18 114/76 90 Room Air 06/26/17 17:00 98.2 112 18 104/69 93 Room Air 06/26/17 12:00 99.1 111 20 103/76 93 Room Air Laboratory Tests 06/26/17 13:25: Vancomycin Level Trough 18.8H 06/27/17 04:30: White Blood Count 6.6, Red Blood Count 4.46L, Hemoglobin 12.5L, Hematocrit 37.6L , Mean Corpuscular Volume 84, Mean Corpuscular Hemoglobin 28.0, Mean Corpuscular Hemoglobin Concent 33.3, Red Cell Distribution Width 15.5H, Platelet Count 114L, Mean Platelet Volume 11.4H, Neutrophils (%) (Auto) 59.6, Lymphocytes (%) (Auto) 24.0, Monocytes (%) (Auto) 13.9H, Eosinophils (%) (Auto) 1.9, Basophils (%) (Auto) 0.7, Sodium Level 141, Potassium Level 3.9, Chloride Level 107, Carbon Dioxide Level 26, Anion Gap 8, Blood Urea Nitrogen 22H, Creatinine 0.8, Estimat Glomerular Filtration Rate > 60, Glucose Level 113H, Calcium Level 9.4 Height (Feet): 6 Height (Inches): 1.00 Weight (Pounds): 180 Objective HEAD AND NECK: No JVP. No LAD. No thyromegaly. Extraocular movements intact. Pupils are reactive to light and accommodation. LUNGS: Clear to auscultation. CARDIAC: Regular rate and rhythm. S1 and S2. No murmur. No rub. ABDOMEN: Soft, nontender, and nondistended. EXTREMITIES: No edema, clubbing, or cyanosis BARTOLOME OVALLES Jun 27, 2017 09:09
[2017-06-27 12:00] VITALS: BP 103/59
--- NOTE | 2017-06-27 13:16 | General Progress Note ---
Assessment/Plan Problem List: (1) UTI (urinary tract infection) ICD Codes: N39.0 - Urinary tract infection, site not specified SNOMED: 83337582 (2) Acute kidney injury superimposed on chronic kidney disease ICD Codes: S37.009A - Unspecified injury of unspecified kidney, initial encounter; N18.9 - Chronic kidney disease, unspecified SNOMED: 58307110 (3) Encounter for PEG (percutaneous endoscopic gastrostomy) ICD Codes: Z43.1 - Encounter for attention to gastrostomy SNOMED: 850702501, 434288096 (4) HCAP (healthcare-associated pneumonia) ICD Codes: J18.9 - Pneumonia, unspecified organism SNOMED: 936790334 (5) Encephalopathy ICD Codes: G93.40 - Encephalopathy, unspecified SNOMED: 04000232, 499767319 (6) COPD (chronic obstructive pulmonary disease) ICD Codes: J44.9 - Chronic obstructive pulmonary disease, unspecified SNOMED: 54462041 (7) Cachexia ICD Codes: R64 - Cachexia SNOMED: 515630576 (8) Schizophrenia ICD Codes: F20.9 - Schizophrenia, unspecified SNOMED: 61912391 (9) Feeding by G-tube ICD Codes: Z93.1 - Gastrostomy status SNOMED: 595674917, 573902700 (10) Pneumonia ICD Codes: J18.9 - Pneumonia, unspecified organism SNOMED: 891499197 Qualifiers: Qualified Codes: J18.9 - Pneumonia, unspecified organism Assessment/Plan o2, pulm tx abx ot pt diet dc to snf Subjective Constitutional: Reports: weakness Allergies: Coded Allergies: No Known Allergies (Unverified , 12/05/15) All Systems: reviewed and negative except above Subjective sleepy Objective Last 24 Hour Vital Signs Date Time Temp Pulse Resp B/P (MAP) Pulse Ox O2 Delivery O2 Flow Rate FiO2 06/27/17 08:00 97.9 108 20 91/59 100 Room Air 06/27/17 07:56 104 20 Room Air 21 06/27/17 04:00 97.0 97 18 107/74 90 Room Air 06/27/17 00:00 98.4 96 20 109/64 90 Room Air 06/26/17 20:04 97.0 56 18 114/76 90 Room Air 06/26/17 17:00 98.2 112 18 104/69 93 Room Air Laboratory Tests 06/26/17 13:25: Vancomycin Level Trough 18.8H 06/27/17 04:30: White Blood Count 6.6, Red Blood Count 4.46L, Hemoglobin 12.5L, Hematocrit 37.6L , Mean Corpuscular Volume 84, Mean Corpuscular Hemoglobin 28.0, Mean Corpuscular Hemoglobin Concent 33.3, Red Cell Distribution Width 15.5H, Platelet Count 114L, Mean Platelet Volume 11.4H, Neutrophils (%) (Auto) 59.6, Lymphocytes (%) (Auto) 24.0, Monocytes (%) (Auto) 13.9H, Eosinophils (%) (Auto) 1.9, Basophils (%) (Auto) 0.7, Sodium Level 141, Potassium Level 3.9, Chloride Level 107, Carbon Dioxide Level 26, Anion Gap 8, Blood Urea Nitrogen 22H, Creatinine 0.8, Estimat Glomerular Filtration Rate > 60, Glucose Level 113H, Calcium Level 9.4 Height (Feet): 6 Height (Inches): 1.00 Weight (Pounds): 180 General Appearance: lethargic EENT: normal ENT inspection Neck: normal alignment Cardiovascular: normal peripheral pulses, normal rate, regular rhythm Respiratory/Chest: chest wall non-tender, lungs clear, normal breath sounds Abdomen: normal bowel sounds, non tender, soft Extremities: normal inspection Edema: no edema noted Arm (L), no edema noted Arm (R), no edema noted Leg (L), no edema noted Leg (R), no edema noted Pedal (L), no edema noted Pedal (R), no edema noted Generalized Neurologic: motor weakness Skin: normal pigmentation, warm/dry Objective bl hip and knee contracture ALONDRA SINGH Jun 27, 2017 13:16
--- NOTE | 2017-06-27 14:48 | Diagnostic Imaging Report ---
Indication:Abdominal pain Technique: Grayscale and duplex Doppler imaging of the abdomen performed. Comparison: None Findings: The study is significantly limited. There is a gastrostomy present. The spleen is normal in size. No obvious abnormalities of the liver seen. No obvious gallstones are seen. CBD is 4 mm. The main portal vein is patent by Doppler examination. There is no obvious ascites. There is cortical thinning of both kidneys. There is no hydronephrosis. The aorta is largely obscured. IVC is also largely obscured. Pancreas is not seen well. Impression: Very limited examination. No acute findings appreciated.
[2017-06-27 15:56] VITALS: BP 108/72
--- NOTE | 2017-06-27 16:08 | Pulmonology Progress Note ---
Assessment/Plan Problems: (1) Pneumonia (2) Elevated troponin (3) Schizophrenia (4) COPD (chronic obstructive pulmonary disease) (5) Alzheimer's dementia (6) Feeding by G-tube (7) Cachexia Assessment/Plan improving check cultures symptomatic treatment dc plainng all cultures reviewed Subjective ROS Limited/Unobtainable: No Constitutional: Reports: no symptoms HEENT: Repors: no symptoms Respiratory: Reports: no symptoms Cardiovascular: Reports: no symptoms Allergies: Coded Allergies: No Known Allergies (Unverified , 12/05/15) Objective Last 24 Hour Vital Signs Date Time Temp Pulse Resp B/P (MAP) Pulse Ox O2 Delivery O2 Flow Rate FiO2 06/27/17 15:56 98.2 89 18 108/72 95 Room Air 06/27/17 12:00 97.5 90 21 103/59 96 Room Air 06/27/17 08:00 97.9 108 20 91/59 100 Room Air 06/27/17 07:56 104 20 Room Air 21 06/27/17 04:00 97.0 97 18 107/74 90 Room Air 06/27/17 00:00 98.4 96 20 109/64 90 Room Air 06/26/17 20:04 97.0 56 18 114/76 90 Room Air 06/26/17 17:00 98.2 112 18 104/69 93 Room Air General Appearance: WD/WN HEENT: anicteric Respiratory/Chest: chest wall non-tender, normal breath sounds Cardiovascular: normal peripheral pulses, normal rate Abdomen: normal bowel sounds, soft, non tender Neurologic/Psychiatric: turner in II-XII grossly normal Lymphatic: no neck adenopathy Laboratory Tests 06/27/17 04:30: White Blood Count 6.6, Red Blood Count 4.46L, Hemoglobin 12.5L, Hematocrit 37.6L , Mean Corpuscular Volume 84, Mean Corpuscular Hemoglobin 28.0, Mean Corpuscular Hemoglobin Concent 33.3, Red Cell Distribution Width 15.5H, Platelet Count 114L, Mean Platelet Volume 11.4H, Neutrophils (%) (Auto) 59.6, Lymphocytes (%) (Auto) 24.0, Monocytes (%) (Auto) 13.9H, Eosinophils (%) (Auto) 1.9, Basophils (%) (Auto) 0.7, Sodium Level 141, Potassium Level 3.9, Chloride Level 107, Carbon Dioxide Level 26, Anion Gap 8, Blood Urea Nitrogen 22H, Creatinine 0.8, Estimat Glomerular Filtration Rate > 60, Glucose Level 113H, Calcium Level 9.4 Current Medications Medications (Trade) Dose Ordered Sig/Gloria Route PRN Reason Start Time Stop Time Status Last Admin Dose Admin Acetaminophen (Tylenol) 650 mg Q4H PRN ORAL T>100.5F 06/23/17 15:00 07/21/17 06:59 Al Hydroxide/Mg Hydroxide (Mylanta II) 30 ml Q6H PRN ORAL dyspepsia 06/23/17 13:30 07/21/17 13:29 Albuterol/ Ipratropium (DuoNeb 0.5-3(2.5)mg/3ml) 3 ml Q4H PRN HHN Shortness of Breath 06/25/17 16:00 06/28/17 15:59 Cefepime HCl 1 gm/ Dextrose 55 ml @ 110 mls/hr EVERY 12 HOURS IV 06/23/17 21:00 06/28/17 10:59 06/26/17 23:04 Docusate Sodium (Colace) 100 mg TWICE A DAY ORAL 06/24/17 18:00 07/24/17 17:59 06/27/17 08:30 Heparin Sodium (Porcine) (Heparin 5000 units/ml) 5,000 units EVERY 12 HOURS SUBQ 06/23/17 21:00 07/21/17 08:59 06/26/17 10:37 Iron Sucrose 100 mg/Sodium Chloride 60 ml @ 240 mls/hr BEDTIME IVPB 06/24/17 21:00 06/28/17 21:14 06/26/17 23:03 Lactulose (Cephulac) 10 gm THREE TIMES A DAY ORAL 06/24/17 13:00 07/24/17 12:59 06/27/17 13:16 Lorazepam (Ativan) 1 mg Q6H PRN ORAL For Anxiety 06/23/17 13:30 06/28/17 13:29 Midodrine (Pro-Amatine) 5 mg THREE TIMES A DAY ORAL 06/23/17 14:00 07/21/17 13:59 06/27/17 13:16 Nitroglycerin (Ntg) 0.4 mg Q5M PRN SL Prn Chest Pain 06/23/17 13:15 07/21/17 06:59 Olanzapine (ZyPREXA Zydis) 10 mg EVERY 12 HOURS ORAL 06/23/17 21:00 07/21/17 08:59 06/27/17 08:30 Ondansetron HCl (Zofran) 4 mg Q6H PRN IVP Nausea & Vomiting 06/23/17 13:30 07/21/17 13:29 Polyethylene Glycol (Miralax) 17 gm DAILYPRN PRN ORAL Constipation 06/24/17 07:00 07/21/17 06:59 Promethazine HCl/ Codeine (Phenergan with Codeine) 5 ml Q4H PRN ORAL For Cough 06/23/17 13:30 07/21/17 13:29 Temazepam (Restoril) 15 mg HSPRN PRN ORAL Insomnia 06/23/17 21:00 06/28/17 20:59 Vancomycin HCl (Vanco rx to dose) 1 ea DAILY PRN MISC Per rx protocol 06/23/17 13:30 07/23/17 13:29 Vancomycin/Sodium Chloride 250 ml @ 166.667 mls/hr Q12HR@0200,1400 IVPB 06/23/17 14:00 06/28/17 13:59 06/27/17 02:00 ALMA LINDO Jun 27, 2017 16:08
--- NOTE | 2017-06-27 16:10 | GI Progress Note ---
Assessment/Plan Problems: (1) Bleeding from gastrostomy tube site ICD Codes: K94.21 - Gastrostomy hemorrhage SNOMED: 728757569 (2) Dysphagia ICD Codes: R13.10 - Dysphagia, unspecified SNOMED: 11950376, 662169408 (3) Anemia ICD Codes: D64.9 - Anemia, unspecified SNOMED: 592559236 (4) Alzheimer's dementia ICD Codes: G30.9 - Alzheimer's disease, unspecified SNOMED: 35321432 (5) Feeding by G-tube ICD Codes: Z93.1 - Gastrostomy status SNOMED: 687695546, 685093006 Status: stable Status Narrative Discussed with Dr. Dinh. Assessment/Plan GTF at 50 GT site care BID/prn - clean with NS, place gauze under retention ring then clamp OB stool r/o GI bleed monitor H&H, prn transfusions bowel regime Prevacid GT fu labs outpatient Hep C treatment with PCP The patient was seen and examined at bedside and all new and available data was reviewed in the patients chart. I agree with the above findings, impression and plan. (Patient seen earlier today. Signature stamp does not reflect patient encounter time.). - Marilu Dinh MD Subjective Subjective limited Objective Last 24 Hour Vital Signs Date Time Temp Pulse Resp B/P (MAP) Pulse Ox O2 Delivery O2 Flow Rate FiO2 06/27/17 15:56 98.2 89 18 108/72 95 Room Air 06/27/17 12:00 97.5 90 21 103/59 96 Room Air 06/27/17 08:00 97.9 108 20 91/59 100 Room Air 06/27/17 07:56 104 20 Room Air 21 06/27/17 04:00 97.0 97 18 107/74 90 Room Air 06/27/17 00:00 98.4 96 20 109/64 90 Room Air 06/26/17 20:04 97.0 56 18 114/76 90 Room Air 06/26/17 17:00 98.2 112 18 104/69 93 Room Air Laboratory Tests Test 06/27/17 04:30 White Blood Count 6.6 K/UL (4.8-10.8) Red Blood Count 4.46 M/UL (4.70-6.10) L Hemoglobin 12.5 G/DL (14.2-18.0) L Hematocrit 37.6 % (42.0-52.0) L Mean Corpuscular Volume 84 FL (80-99) Mean Corpuscular Hemoglobin 28.0 PG (27.0-31.0) Mean Corpuscular Hemoglobin Concent 33.3 G/DL (32.0-36.0) Red Cell Distribution Width 15.5 % (11.6-14.8) H Platelet Count 114 K/UL (150-450) L Mean Platelet Volume 11.4 FL (6.5-10.1) H Neutrophils (%) (Auto) 59.6 % (45.0-75.0) Lymphocytes (%) (Auto) 24.0 % (20.0-45.0) Monocytes (%) (Auto) 13.9 % (1.0-10.0) H Eosinophils (%) (Auto) 1.9 % (0.0-3.0) Basophils (%) (Auto) 0.7 % (0.0-2.0) Sodium Level 141 MMOL/L (136-145) Potassium Level 3.9 MMOL/L (3.5-5.1) Chloride Level 107 MMOL/L (98-107) Carbon Dioxide Level 26 MMOL/L (21-32) Anion Gap 8 mmol/L (5-15) Blood Urea Nitrogen 22 mg/dL (7-18) H Creatinine 0.8 MG/DL (0.55-1.30) Estimat Glomerular Filtration Rate > 60 mL/min (>60) Glucose Level 113 MG/DL (74-106) H Calcium Level 9.4 MG/DL (8.5-10.1) Height (Feet): 6 Height (Inches): 1.00 Weight (Pounds): 180 General Appearance: no apparent distress, alert Cardiovascular: normal rate Respiratory/Chest: normal breath sounds, no respiratory distress Abdominal Exam: GT site - c/d/i Beth Carver N.P. Jun 27, 2017 16:10 FRITZ DINH Jun 30, 2017 09:44
--- NOTE | 2017-06-27 19:38 | General Progress Note ---
Assessment/Plan Assessment/Plan IMPRESSION/RECOMMENDATIONS: #. Leukopenia likely related to Hepatitis C --> US of the abdomen nonsignificant however limited #. Anemia of iron deficiency. is on venofer #. History of deep venous thrombosis of the right lower extremity. no anticoagulation --> no new dvt #. Thrombocytopenia, multifactorial. pending us of the abdomen #. Acute respiratory failure. #. Pneumonia resolved #. Chronic obstructive pulmonary disease. #. History of recent percutaneous endoscopic gastrostomy tube placement. #. Dysphagia. #. Acute renal failure. #. Malnutrition. #. Dehydration. #. Coronary artery disease. Subjective Constitutional: Reports: no symptoms HEENT: Reports: no symptoms Cardiovascular: Reports: no symptoms Respiratory: Reports: no symptoms Gastrointestinal/Abdominal: Reports: no symptoms Genitourinary: Reports: no symptoms Neurologic/Psychiatric: Reports: no symptoms Endocrine: Reports: no symptoms Hematologic/Lymphatic: Reports: anemia Allergies: Coded Allergies: No Known Allergies (Unverified , 12/05/15) Subjective NAD Objective Last 24 Hour Vital Signs Date Time Temp Pulse Resp B/P (MAP) Pulse Ox O2 Delivery O2 Flow Rate FiO2 06/27/17 15:56 98.2 89 18 108/72 95 Room Air 06/27/17 12:00 97.5 90 21 103/59 96 Room Air 06/27/17 08:00 97.9 108 20 91/59 100 Room Air 06/27/17 07:56 104 20 Room Air 21 06/27/17 04:00 97.0 97 18 107/74 90 Room Air 06/27/17 00:00 98.4 96 20 109/64 90 Room Air 06/26/17 20:04 97.0 56 18 114/76 90 Room Air Laboratory Tests 06/27/17 04:30: White Blood Count 6.6, Red Blood Count 4.46L, Hemoglobin 12.5L, Hematocrit 37.6L , Mean Corpuscular Volume 84, Mean Corpuscular Hemoglobin 28.0, Mean Corpuscular Hemoglobin Concent 33.3, Red Cell Distribution Width 15.5H, Platelet Count 114L, Mean Platelet Volume 11.4H, Neutrophils (%) (Auto) 59.6, Lymphocytes (%) (Auto) 24.0, Monocytes (%) (Auto) 13.9H, Eosinophils (%) (Auto) 1.9, Basophils (%) (Auto) 0.7, Sodium Level 141, Potassium Level 3.9, Chloride Level 107, Carbon Dioxide Level 26, Anion Gap 8, Blood Urea Nitrogen 22H, Creatinine 0.8, Estimat Glomerular Filtration Rate > 60, Glucose Level 113H, Calcium Level 9.4 Height (Feet): 6 Height (Inches): 1.00 Weight (Pounds): 180 General Appearance: no apparent distress EENT: normal ENT inspection Neck: normal alignment Cardiovascular: normal peripheral pulses Extremities: normal range of motion Skin: normal pigmentation Gilberto Freedman Jun 27, 2017 19:38
--- NOTE | 2017-06-28 23:31 | Diagnostic Imaging Report ---
APPROVED REPORT CPT Code: 08202 Present Symptoms Lower Extremity Pain: Comments: Hx COPD, CHF, HTN. Bilateral contracture. Technically difficult, limited study due to bilateral contracture. RIGHT LEG: Venous imaging reveals recanalized chronic thrombus in the distal superficial femoral vein. Collateral vein noted anterior to the distal superficial femoral artery. The remainder of the deep venous system is within normal limits. There is no evidence of thrombus in the common femoral, popliteal or calf veins. The greater saphenous vein is also within normal limits. Doppler indicates normal spontaneous flow within these segments. The popliteal and tibial veins were not well visualized. LEFT LEG: Venous imaging reveals recanalized chronic thrombus in the distal superficial femoral vein. Collateral vein noted anterior to the distal superficial femoral artery. The remainder of the deep venous system is within normal limits. There is no evidence of thrombus in the common femoral, popliteal or calf veins. The greater saphenous vein is also within normal limits. Doppler indicates normal spontaneous flow within these segments. The popliteal and tibial veins were not well visualized. There is no evidence of acute deep vein thrombosis.
--- NOTE | 2017-06-29 15:19 | Discharge Summary ---
Discharge Summary Hospital Course Date of Admission Jun 21, 2017 at 02:56 Date of Discharge Jun 27, 2017 at 15:45 Admitting Diagnosis PNEUMONIA HPI Bret Boyce is a 66 year old male who was admitted on Jun 21, 2017 at 02:56 for Pneumonia Hospital Course [id number] Discharge Discharge Disposition Patient was discharged to [facility] Discharge Diagnoses: Wendi Sams NP Jun 29, 2017 15:19
--- NOTE | 2017-06-30 04:45 | Discharge Summary 2 SIG ---
DATE OF ADMISSION: 06/21/2017 DATE OF DISCHARGE: 06/27/2017 CONSULTANTS: 1. Gilberto Freedman M.D. 2. Jesús Dinh M.D. 3. Misty Rojas M.D. 4. Shayy Moore M.D. 5. Ren Shah M.D. BRIEF HOSPITAL COURSE: The patient is a 66-year-old male who presented to ED complaining of difficulty breathing at the skilled nursing. Chest x-ray done showed pneumonia. The patient was then transported to [facility]. On arrival to ED, labs showed no leukocytosis. Hemoglobin and hematocrit was stable. Initial troponin was 0.129. Chest x-ray done showed left basilar atelectasis. He was then admitted to [facility] for pneumonia and elevated troponin. He underwent cardiac evaluation with Dr. Shah. On evaluation, there was no evidence of infiltration on x-ray and there was no evidence of any ST-T wave abnormalities on EKG, although first two troponins were slightly positive, doubtful for ACS, no further ischemic workup needed. He was continued with midodrine for blood pressure control. He had anemia, prior workup showed anemia of iron deficiency. He was given IV iron. Human immunodeficiency virus test was negative. TSH was therapeutic. Dyspnea was assessed to be secondary to pneumonia. Venous duplex of lower extremity showed recanalized chronic thrombus in bilateral legs. The patient had elevated LFTs. Abdominal ultrasound done showed no acute findings, no obvious abnormality seen on the liver. Hepatitis panel was positive and recommended outpatient treatment for hepatitis C. He had an echocardiogram done that showed ejection fraction of 55% with normal left ventricular size, function, and wall motion. Blood culture did not isolate any growth. There was bleeding from the G-tube site. He was given G-tube site care b.i.d. and p.r.n.. The patient was eventually discharged to [facility]. FINAL DIAGNOSES: 1. Dyspnea, secondary to pneumonia. 2. Pneumonia. 3. Elevated troponin, doubt acute coronary syndrome. 4. Schizophrenia. 5. Chronic obstructive pulmonary disease. 6. Alzheimer's dementia. 7. Dysphagia, feeding by gastrostomy tube. 8. Anemia of iron deficiency. 9. Leukopenia, likely related to hepatitis C. 10. Thrombocytopenia, multifactorial. 11. Dehydration. 12. Acute renal failure. 13. Coronary artery disease. 14. Proteinuria. 15. Hematuria. 16. Pneumonia. 17. Hypomagnesemia. DISCHARGE MEDICATIONS: Refer to medication list. Johan Rangel D.O. I have been assigned to dictate discharge summary on this account and I was not involved in the patient's management. Wendi Sams N.P. DR: GURJIT JOB#: [id number] CC: OSCAR
== END 2017-06-27 15:45 | DRG 139 ==
LOC: EDSEX 02:14 → EDBD 02:14 → EMR 02:35 → 4W 02:56 → EDBEDREQ 03:33 → 2W 05:17 → 4W 06-23 13:00
DX: J18.9 Pneumonia, unspecified organism (principal); J96.00 Acute respiratory failure, unspecified whether with hypoxia or hypercapnia; G93.40 Encephalopathy, unspecified; N17.9 Acute kidney failure, unspecified; R64 Cachexia; R53.2 Functional quadriplegia; I95.9 Hypotension, unspecified; K94.21 Gastrostomy hemorrhage; R13.10 Dysphagia, unspecified; G30.9 Alzheimer's disease, unspecified; F02.80 Dementia in other diseases classified elsewhere, unspecified severity, without behavioral disturbance, psychotic disturbance, mood disturbance, and anxiety; E46 Unspecified protein-calorie malnutrition; D69.6 Thrombocytopenia, unspecified; J44.9 Chronic obstructive pulmonary disease, unspecified; F20.9 Schizophrenia, unspecified; Z68.23 Body mass index [BMI] 23.0-23.9, adult; E87.1 Hypo-osmolality and hyponatremia; E83.42 Hypomagnesemia; N39.0 Urinary tract infection, site not specified; E86.0 Dehydration; R31.9 Hematuria, unspecified; I12.9 Hypertensive chronic kidney disease with stage 1 through stage 4 chronic kidney disease, or unspecified chronic kidney disease; N18.9 Chronic kidney disease, unspecified; Y95 Nosocomial condition; K59.00 Constipation, unspecified; I25.10 Atherosclerotic heart disease of native coronary artery without angina pectoris; D50.9 Iron deficiency anemia, unspecified; K75.9 Inflammatory liver disease, unspecified; I82.503 Chronic embolism and thrombosis of unspecified deep veins of lower extremity, bilateral; Z23 Encounter for immunization
CPT/HCPCS: 36415; 70450; 71010; 76700; 80048; 80053; 80069; 80202; 81003; 82378; 82550; 82553; 82607; 82728; 82746; 83540; 83550; 83605; 83735; 83880; 84439; 84443; 84484; 85007; 85025; 85044; 86703; 86705; 86709; 86803; 87040; 87081; 87340; 90630; 92610; 93005; 93306; 93970; 94664

== ENCOUNTER 2017-09-17 20:15 | Inpatient (IN) | payer MEDICAID ==
[~2017-09-17] VITALS: Ht 182.9 cm; Wt 59.9 kg
[~2017-09-17 20:15] MED LIST changes: +WARFARIN SODIU2.5 MG ORAL
[2017-09-17 20:16] VITALS: BP 111/69
[2017-09-17] MEDS ORDERED: Cefepime HCl 2 GM in NS 110 ML IV ONE (20:30)
[2017-09-17] MEDS ORDERED: Vancomycin 1.5gm/D5W 250ml 250 ML IVPB ONE (20:30)
[2017-09-17 20:45] LABS: BASOPHILS % (AUTO) 1.6 % (0.0-2.0); HEMATOCRIT 29.9 % (42.0-52.0); HEMOGLOBIN 8.6 G/DL (14.2-18.0); LYMPHOCYTES % (AUTO) 9.3 % (20.0-45.0); MEAN CORPUSCULAR VOLUME 83 FL (80-99); MONOCYTES % (AUTO) 8.7 % (1.0-10.0); NEUTROPHILS % (AUTO) 79.4 % (45.0-75.0); PLATELET COUNT 183 K/UL (150-450); RED BLOOD COUNT 3.61 M/UL (4.70-6.10); RED CELL DISTRIBUTION WIDTH 16.3 % (11.6-14.8); WHITE BLOOD COUNT 10.6 K/UL (4.8-10.8)
--- NOTE | 2017-09-17 20:49 | Emergency Room Report ---
History of Present Illness General Chief Complaint: Skin Rash/Abscess Source: Patient, Medical Record Present Illness HPI 66-year-old male, history of COPD on oxygen 2 L, dementia, hx of dvt on coumadin , bedbound, normally oriented to person only, contracted, PEG tube, right elbow cellulitis Patient was reportedly treated for cellulitis at the retirement, however it is not getting better, so was sent in. EMS also stated that on arrival he was hypoxic 89 2L, came up with NRB stevenenrtly satting 98 on 3L NC No other history is able to be obtained as patient is nonverbal at this time Allergies: Coded Allergies: No Known Allergies (Unverified , 12/05/15) Patient History Past Medical History: see triage record Past Surgical History: none Pertinent Family History: none Reviewed Nursing Documentation: PMH: Agreed, PSxH: Agreed Nursing Documentation-PMH Past Medical History: No History, Except For Hx Cardiac Problems: No - Anemia, Dehydration Hx Hypertension: Yes - PNA Hx COPD: Yes Hx Cancer: No Hx Gastrointestinal Problems: Yes - Dysphagia Hx Dialysis: No - CKD History Of Psychiatric Problem: Yes - Schizopherenia, Alzheimer's Hx Neurological Problems: Yes - Encephalopathy Hx Dementia: Yes Hx Alzheimer's Disease: Yes Review of Systems All Other Systems: limited - nonverbal Physical Exam Vital Signs Date Time Temp Pulse Resp B/P (MAP) Pulse Ox O2 Delivery O2 Flow Rate FiO2 09/17/17 20:11 98.2 86 30 118/48 99 Non-Rebreather 10.0 Sp02 EP Interpretation: reviewed, normal General Appearance: mild distress, thin, other - not responsive, Chronically Ill Head: normocephalic, atraumatic Eyes: bilateral eye normal inspection, bilateral eye PERRL, bilateral eye EOMI ENT: dry mucus membranes Neck: normal inspection, full range of motion, supple Respiratory: lungs clear, no retraction Cardiovascular #1: normal inspection, regular rate, rhythm, no edema, normal capillary refill Cardiovascular #2: 2+ radial (R), 2+ radial (L) Gastrointestinal: other - peg tube. soft abdomen. no grimace to deep palpatio Genitourinary: no CVA tenderness Musculoskeletal: other - Contracted bilateral lower extremities, right elbow with mild erythema and 2+ pitting edema extending from the mid humerus down to forearm. Neurologic: other - not responsive Psychiatric: normal inspection, judgement/insight normal, memory normal Skin: normal inspection, normal color, no rash, warm/dry, well hydrated, normal turgor Medical Decision Making Diagnostic Impression: Primary Impression: Cellulitis of right elbow Additional Impressions: Anemia Pneumonia ER Course 66-year-old male, bedbound, PEG tube, sent in for right elbow cellulitis DDX: Right elbow cellulitis versus DVT, however pt on coumadin Plan: Obtain labs, ua, EKG, CXR ER course: Vancomycin and cefepime given vascular study to be performed tomorrow as inpatient, informed admitting hospitalist fluids given CXR with L diaphragm elevated, also w possible PNA Disposition: Patient is to be admitted to [facility] Patient was signed out to Dr. Alondra Singh, who has accepted patient for admission. Please note that this Emergency Department Report was dictated using [employer]th grade teacher technology software, occasionally this can lead to erroneous entry secondary to interpretation by the dictation equipment. EKG Diagnostic Results EP Interpretation: Yes Rate: normal Rhythm: NSR ST Segments: No acute changes ASA given to patient: No Rhythm Strip EP Interpretation: Yes Rate: 87 Rhythm: NSR, no PVCs, no ectopy Chest X-ray CXR: Ordered: Yes 1 view Indication: AMS EP interpretation: Yes Interpretation: Left hemidiaphragm elevation, left basilar atelectasis, possible left-sided infiltrate Impression: Left hemidiaphragm elevation, left basilar atelectasis, possible left-sided infiltrate Electronically signed by Amita Meyer MD Laboratory Tests Test 09/17/17 20:35 09/17/17 21:00 White Blood Count 10.6 K/UL (4.8-10.8) Red Blood Count 3.61 M/UL (4.70-6.10) L Hemoglobin 8.6 G/DL (14.2-18.0) L Hematocrit 29.9 % (42.0-52.0) L Mean Corpuscular Volume 83 FL (80-99) Mean Corpuscular Hemoglobin 23.9 PG (27.0-31.0) L Mean Corpuscular Hemoglobin Concent 28.9 G/DL (32.0-36.0) L Red Cell Distribution Width 16.3 % (11.6-14.8) H Platelet Count 183 K/UL (150-450) Mean Platelet Volume 11.3 FL (6.5-10.1) H Neutrophils (%) (Auto) 79.4 % (45.0-75.0) H Lymphocytes (%) (Auto) 9.3 % (20.0-45.0) L Monocytes (%) (Auto) 8.7 % (1.0-10.0) Eosinophils (%) (Auto) 1.0 % (0.0-3.0) Basophils (%) (Auto) 1.6 % (0.0-2.0) Sodium Level 142 MMOL/L (136-145) Potassium Level 4.5 MMOL/L (3.5-5.1) Chloride Level 108 MMOL/L (98-107) H Carbon Dioxide Level 29 MMOL/L (21-32) Anion Gap 5 mmol/L (5-15) Blood Urea Nitrogen 37 mg/dL (7-18) H Creatinine 1.0 MG/DL (0.55-1.30) Estimate Glomerular Filtration Rate > 60 mL/min (>60) Glucose Level 109 MG/DL (74-106) H Lactic Acid Level 1.00 mmol/L (0.66-2.22) Calcium Level 8.2 MG/DL (8.5-10.1) L Total Bilirubin 0.5 MG/DL (0.2-1.0) Aspartate Amino Transferase (AST) 80 U/L (15-37) H Alanine Aminotransferase (ALT) 68 U/L (12-78) Alkaline Phosphatase 86 U/L (46-116) Total Creatine Kinase 809 U/L (26-308) H Troponin I 0.006 ng/mL (0.000-0.056) Total Protein 7.3 G/DL (6.4-8.2) Albumin 2.2 G/DL (3.4-5.0) L Globulin 5.1 g/dL Albumin/Globulin Ratio 0.4 (1.0-2.7) L Prothrombin Time 29.9 SEC (9.30-11.50) H Prothrombin Time INR 2.8 (0.9-1.1) H PTT 41 SEC (23-33) H Urine Color Alissa Urine Appearance Slightly cloudy Urine pH 7 (4.5-8.0) Urine Specific [place] 1.010 (1.005-1.035) Urine Protein 1+ (NEGATIVE) H Urine Glucose (UA) Negative (NEGATIVE) Urine Ketones Negative (NEGATIVE) Urine Occult Blood 5+ (NEGATIVE) H Urine Nitrite Negative (NEGATIVE) Urine Bilirubin Negative (NEGATIVE) Urine Ictotest Negative Urine Urobilinogen 1 MG/DL (0.0-1.0) H Urine Leukocyte Esterase 1+ (NEGATIVE) H Urine RBC 60-80 /HPF (0 - 0) H Urine WBC 5-10 /HPF (0 - 0) H Urine Squamous Epithelial Cells Occasional /LPF Urine Bacteria Few /HPF (NONE) Urine Mucus Few /LPF (NONE/OCC) H Last Vital Signs Date Time Temp Pulse Resp B/P (MAP) Pulse Ox O2 Delivery O2 Flow Rate FiO2 09/17/17 20:16 98.2 86 30 118/48 99 Non-Rebreather 10.0 Disposition: ADMITTED INPATIENT Condition: Serious Referrals: ALONDRA SINGH (PCP) Amita Meyer M.D. Sep 17, 2017 20:49
[2017-09-17 21:03] LABS: ANION GAP 5 mmol/L (5-15); BLOOD UREA NITROGEN 37 mg/dL (7-18); CALCIUM 8.2 MG/DL (8.5-10.1); CARBON DIOXIDE 29 MMOL/L (21-32); CHLORIDE 108 MMOL/L (98-107); POTASSIUM 4.5 MMOL/L (3.5-5.1); SODIUM 142 MMOL/L (136-145)
[2017-09-17 21:08] LABS: ALANINE AMINOTRANSFERASE 68 U/L (12-78); ALBUMIN 2.2 G/DL (3.4-5.0); ALBUMIN/GLOBULIN RATIO 0.4 (1.0-2.7); ALKALINE PHOSPHATASE 86 U/L (46-116); ASPARTATE AMINO TRANSFERASE 80 U/L (15-37); BILIRUBIN,TOTAL 0.5 MG/DL (0.2-1.0); CREATINE KINASE 809 U/L (26-308)
[2017-09-17] MEDS ORDERED: Morphine Sulfate 2mg/ml Inj IVP PRN (21:15)
[2017-09-17] MEDS ORDERED: Albuterol/Ipratropium 3ml neb HHN PRN ×2 (21:15)
[2017-09-17] MEDS ORDERED: Miralax 17gm pkt ORAL PRN (21:15)
[2017-09-17] MEDS ORDERED: Promethazine/Codeine 5ml UD ORAL PRN (21:15)
[2017-09-17] MEDS ORDERED: LORazepam 1mg tab ORAL PRN (21:15)
[2017-09-17] MEDS ORDERED: Nitroglycerin Subl 0.4mg tab SL PRN (21:15)
[2017-09-17] MEDS ORDERED: Cefepime 2gm ONE (21:38)
[2017-09-17 21:39] LABS: APPEARANCE,URINE SLIGHTLY CLOUDY; BILIRUBIN, URINE NEGATIVE (NEGATIVE); COLOR,URINE AMBER; GLUCOSE, URINE (UA) NEGATIVE (NEGATIVE); KETONES,URINE NEGATIVE (NEGATIVE); LEUKOCYTE ESTERASE ,URINE 1+ (NEGATIVE); NITRITE,URINE NEGATIVE (NEGATIVE); PH,URINE 7 (4.5-8.0); PROTEIN,URINE 1+ (NEGATIVE); UROBILINOGEN,URINE 1 MG/DL (0.0-1.0)
[2017-09-17 22:00] LABS: INR 2.8 (0.9-1.1)
[2017-09-17 22:16] VITALS: BP 106/71
[2017-09-17 23:00] VITALS: BP 106/72
[2017-09-18 00:37] VITALS: BP 105/71
[2017-09-18] MEDS ORDERED: ZINC SULFATE220 M1 GT (01:58)
[2017-09-18] MEDS ORDERED: ASCORBIC ACID250 M1 GT (01:58)
[2017-09-18] MEDS ORDERED: MULTIVITAMINS1 EAC2 GT (01:58)
[2017-09-18] MEDS ORDERED: FOLIC ACID1 MG GT (01:58)
[2017-09-18] MEDS ORDERED: AMIODARONE HCL400 M1 GT (01:58)
[2017-09-18] MEDS ORDERED: ZOFRAN4 M3 GT (01:58)
[2017-09-18] MEDS ORDERED: MIRALAX17 G2 GT (01:58)
[2017-09-18] MEDS ORDERED: ZYPREXA10 MG GT (01:58)
[2017-09-18 04:47] VITALS: BP 114/69
[2017-09-18 07:51] LABS: BASOPHILS % (AUTO) 0.7 % (0.0-2.0); EOSINOPHILS % (AUTO) 1.2 % (0.0-3.0); HEMATOCRIT 26.7 % (42.0-52.0); HEMOGLOBIN 8.3 G/DL (14.2-18.0); LYMPHOCYTES % (AUTO) 10.5 % (20.0-45.0); MEAN CORPUSCULAR VOLUME 83 FL (80-99); MONOCYTES % (AUTO) 11.1 % (1.0-10.0); NEUTROPHILS % (AUTO) 76.5 % (45.0-75.0); PLATELET COUNT 176 K/UL (150-450); RED BLOOD COUNT 3.23 M/UL (4.70-6.10); RED CELL DISTRIBUTION WIDTH 16.8 % (11.6-14.8); WHITE BLOOD COUNT 9.1 K/UL (4.8-10.8)
[2017-09-18 07:57] LABS: % IRON SATURATION 9 % (15-50); IRON 21 ug/dL (50-175); TOTAL IRON BINDING CAPACITY 226 ug/dL (250-450)
[2017-09-18 08:00] VITALS: BP 114/68
[2017-09-18 08:01] LABS: ALANINE AMINOTRANSFERASE 80 U/L (12-78); ALBUMIN 2.1 G/DL (3.4-5.0); ALBUMIN/GLOBULIN RATIO 0.4 (1.0-2.7); ALKALINE PHOSPHATASE 84 U/L (46-116); ANION GAP 7 mmol/L (5-15); ASPARTATE AMINO TRANSFERASE 85 U/L (15-37); BILIRUBIN,TOTAL 0.6 MG/DL (0.2-1.0); BLOOD UREA NITROGEN 28 mg/dL (7-18); CALCIUM 7.9 MG/DL (8.5-10.1); CARBON DIOXIDE 26 MMOL/L (21-32); CHLORIDE 110 MMOL/L (98-107); CREATININE 0.8 MG/DL (0.55-1.30); POTASSIUM 4.2 MMOL/L (3.5-5.1); SODIUM 143 MMOL/L (136-145)
[2017-09-18 08:21] LABS: LACTATE DEHYDROGENASE 227 U/L (81-234)
[2017-09-18 08:27] LABS: INR 3.1 (0.9-1.1)
[2017-09-18] MEDS ORDERED: Pneumococcal Vaccine 25mcg/0.5ml IM ONE (09:00)
[2017-09-18] MEDS ORDERED: Flu Vaccine Quadrivalent 0.5ml IM ONE (09:00)
[2017-09-18] MEDS: Amiodarone 200mg tab GT SCH ×2 (09:43→18:22)
[2017-09-18] MEDS: Cefepime HCl 2 GM in D5W 110 ML IV SCH ×2 (09:44→21:02)
[2017-09-18] MEDS: Heparin 5000 units/ml inj SUBQ SCH ×2 (09:45→21:00)
[2017-09-18] MEDS: Vancomycin 1 GM in D5W 275 ML IVPB SCH ×2 (10:40→21:39)
[2017-09-18 12:00] VITALS: BP 100/63
--- NOTE | 2017-09-18 12:47 | Wound Care Consultation ---
Wound Assessment Wound Assessment #1: Wound Number: 1 Wound Present on Admission: Yes New Wound: No Status Change of Wound: No Wound Location Body Site Modif: right Wound Location Body Site: heel Wound Type: pressure ulcer Jericho Test: Does not Jericho Pressure Ulcer Stage: Deep Tissue Injury Wound Thickness: Full Thickness Wound Length: 2.0 Wound Width: 1.8 Wound Depth: utd Percent of Wound Black/Brown: 100 Wound Drainage Amount: None Wound Drainage Odor: None/Absent Tissue Surrounding Wound: Intact Wound General Appearance: Reddened - brown Wound Assessment #2: Wound Number: 2 Wound Present on Admission: Yes New Wound: No Status Change of Wound: No Wound Location Body Site Modif: left Wound Location Body Site: trochanter Wound Type: pressure ulcer Jericho Test: Does not [place] Pressure Ulcer Stage: Deep Tissue Injury - SDTI Wound Thickness: Full Thickness Wound Length: 6.5 Wound Width: 4.5 Wound Depth: utd Percent of Wound [place]/Red: 100 - deep Wound Drainage Amount: None Wound Drainage Odor: None/Absent Tissue Surrounding Wound: Intact Wound General Appearance: Reddened - deep Wound Assessment #3: Wound Number: 3 Wound Present on Admission: Yes New Wound: No Status Change of Wound: No Wound Location Body Site: other - neck Wound Type: rash Jericho Test: Does not Jericho Percent of Wound [place]/Red: 100 Wound Drainage Amount: None Wound Drainage Odor: None/Absent Tissue Surrounding Wound: Intact Wound General Appearance: Reddened Wound Comment #1 Right heel DTI pressure ulcer #2 Rashes on the neck #3 Left trochanter SDTI pressure ulcer Recommendation -Local wound care per protocol -Keep clean and dry -Optimize nutrition -Offload both heels -Heel protector on both heels -Low air loss SPR mattress -Turn and reposition -Assess and f/u accordingly for any changes MADY GARCIA RN Sep 18, 2017 12:47
[2017-09-18 16:26] VITALS: BP 116/72
--- NOTE | 2017-09-18 17:30 | History and Physical Report ---
DATE OF ADMISSION: 09/17/2017 TIME SEEN: 09/18/2016 at 2 p.m. ATTENDING PHYSICIAN: Johan Rangel D.O. CONSULTANTS: 1. Dr. Funes. 2. Misty Rojas M.D. 3. Margarito Gil M.D. 4. Cristine Barker M.D. CHIEF COMPLAINT: Right elbow cellulitis, weakness and altered mental status. BRIEF HISTORY: This is a 66-year-old male from [facility], presented with the above-mentioned diagnoses with right elbow swelling and redness. Diagnosed with the above, admitted to medical floor. Currently calm, sleeping in bed, O2 NC. Slight shortness of breath, not talking much. REVIEW OF SYSTEMS: Unavailable. PAST MEDICAL HISTORY: Arthritis, DVT, MAR, Alzheimer's, anemia and hypertension. PAST SURGICAL HISTORY: Unknown. MEDICATIONS: Lotrimin, vancomycin, heparin, cefepime, amiodarone, Phenergan with codeine, Zofran, nitroglycerin and Restoril. ALLERGIES: Denies. SOCIAL HISTORY: Unable to obtain secondary to the patient's confusion. PHYSICAL EXAMINATION: GENERAL: On O2 NC, sleeping in bed, not talking much. VITAL SIGNS: Temperature is 98, pulse 72, respirations 20 and blood pressure 100/63. CARDIOVASCULAR: No murmur. LUNGS: Poor exchange. ABDOMEN: Bowel sounds positive. Nontender. Nondistended. EXTREMITIES: No cyanosis or clubbing or edema. Right elbow is slightly swollen and red. NEUROLOGIC: The patient moves all extremities, slightly weak. LABORATORY AND DIAGNOSTIC DATA: Labs at this time show hemoglobin 8.3, otherwise CBC is normal. Chloride 110, BUN 28. Albumin 2.1. INR is 3.1 and PTT is 42. Urinalysis, 1+ leukocyte esterase. ASSESSMENT: 1. Right elbow cellulitis. 2. Urinary tract infection. 3. Weakness. 4. Altered mental status. 5. Arthritis. 6. Malnutrition. 7. Alzheimer's. 8. Anemia. 9. Hypertension. PLAN: 1. Continue pre-medications. 2. Wound care. 3. Antibiotics per Infectious Disease. 4. O2 and pulmonary treatment. 5. OT, PT, and dietary evaluation. 6. CBC and BMP in the morning. 7. Dr. Funes, Dr. Rojas, Dr. Gil, and Dr. Barker to consult. Johan Rangel D.O. DR: HARSHAD JOB#: [id number] CC:
[2017-09-18 20:00] VITALS: BP 109/70
--- NOTE | 2017-09-18 20:15 | Consultation ---
DATE OF CONSULTATION: 09/18/2017 INFECTIOUS DISEASE CONSULTATION CONSULTING PHYSICIAN: Chad Croft M.D. PRIMARY ATTENDING PHYSICIAN: Johan Rangel D.O. REASON FOR CONSULTATION: Cellulitis of right elbow. HISTORY OF PRESENT ILLNESS: The patient is a 66-year-old white male admitted from a nursing facility because of swelling of right elbow area. The patient had low-grade fever of 100.1 degrees. He has advanced dementia and is not the source of history. PAST MEDICAL HISTORY: Significant for Alzheimer dementia, COPD, anemia, he is status post G-tube placement, and has contractures. MEDICATIONS: Getting clotrimazole, vancomycin, heparin, cefepime, amiodarone, Zofran, nitroglycerin, temazepam, MiraLAX, morphine, Tylenol, and DuoNeb inhaler. ALLERGIES: No known drug allergy. SOCIAL HISTORY: long term resident. Bedbound. No other history is obtainable. PHYSICAL EXAMINATION: VITAL SIGNS: Temperature 97.7 degrees, pulse 79, and blood pressure 116/72. GENERAL APPEARANCE: No acute distress. HEAD AND NECK: [place] conjunctivae. HEART: S1, S2 regular. LUNGS: Clear. ABDOMEN: Soft. G-tube feeding. EXTREMITIES: He has localized edema in the right elbow area associated with skin induration, but there is no joint effusion in the elbow. The patient is very rigid and has contracted legs. LABORATORY AND DIAGNOSTIC DATA: WBC 9.1, hemoglobin 8.3, hematocrit 26.7, and platelets 176,000. ESR is 100. Sodium 143, potassium 4.2, chloride 110, bicarbonate 26, BUN 28, and creatinine 0.8. AST 85, ALT 80. Albumin is 2.1. IMPRESSION: Cellulitis of right elbow. We will try to rule out deep vein thrombosis. The patient has chronic obstructive pulmonary disease. New chest x-ray showed no change. He has advanced dementia, status post gastrostomy tube, and has anemia. RECOMMENDATION: We will continue with cefepime and vancomycin. We will follow up the culture. At the end of my exam, I thank Dr. Johan Rangel for involving me in the care of this patient. Chad Croft M.D. DR: CHARITO JOB#: [id number] CC:
--- NOTE | 2017-09-18 21:48 | Diagnostic Imaging Report ---
Indication: Dyspnea Comparison: 06/26/2017 A single view chest radiograph was obtained. Findings: There is chronic moderate elevation of the left hemidiaphragm associated with atelectasis unchanged. Heart is normal in size. No obvious infiltrate identified. Bones are osteopenic. IMPRESSION: No significant change or acute findings
--- NOTE | 2017-09-18 21:49 | Cardiology Report ---
APPROVED REPORT EKG Measurement Heart [id number] Normal sinus rhythm Prolonged QT Abnormal ECG
--- NOTE | 2017-09-18 23:05 | Consultation ---
History of Present Illness General Date patient seen: Sep 18, 2017 Chief Complaint: Skin Rash/Abscess Present Illness HPI 66-year-old male, history of COPD on oxygen 2 L, dementia, hx of dvt on coumadin , bedbound, normally oriented to person only, contracted, PEG tube, right elbow cellulitis not getting better, so was sent in. EMS also stated that on arrival he was hypoxic 89 2L, came up with NRB. pt is admitted for further management. Allergies: Coded Allergies: No Known Allergies (Unverified , 12/05/15) Medication History Scheduled Amiodarone Hcl* (Amiodarone Hcl*), 200 MG GT BID, (Reported) Ascorbic Acid* (Ascorbic Acid*), 5 ML GT BID, (Reported) Famotidine (Pepcid), 20 MG ORAL Q12HR, (Reported) Folic Acid* (Folic Acid*), 1 MG GT DAILY, (Reported) Midodrine* (Proamatine*), 5 MG ORAL THREE TIMES A DAY, (Reported) Multivitamins* (Multivitamins*), 15 ML GT DAILY, (Reported) Olanzapine* (Zyprexa*), 10 MG GT BID, (Reported) Olanzapine* (Zyprexa*), 10 MG GT BID, (Reported) Kkpzzjkluhtt-Ibeq-Dmlfwrwz,Iso (Zosyn 3.375 Gm Pre Mix-Bag), 3.375 GM IVPB EVERY 8 HOURS, (Reported) Vancomycin Hcl (Vancomycin), 1.25 GM IV Q24H, (Reported) Warfarin Sod* (Coumadin*), 3 MG ORAL DAILY, (Reported) Warfarin Sod* (Warfarin Sod*), 2.5 MG ORAL DAILY, (Reported) Zinc Sulfate (Zinc Sulfate*), 220 MG GT DAILY, (Reported) Scheduled PRN Acetaminophen (Tylenol), 325 MG ORAL Q4HR PRN for For Pain, (Reported) Al Hydroxide/mg Hydroxide (Mag-Al Plus Suspension), 30 ML GT Q6HR PRN for Abdominal cramps, (Reported) Codeine/Promethazine Hcl* (Promethazine-Codeine Syrup*), 5 ML ORAL Q4H PRN for For Cough, (Reported) Ipratropium/Albuterol Sulfate (DuoNeb 0.5-3(2.5)mg/3ml), 3 ML HHN Q4HR PRN for Shortness of Breath, (Reported) Lorazepam* (Ativan*), 1 MG ORAL Q6HR PRN for For Anxiety, (Reported) Nitroglycerin (Nitroglycerin), 0.4 MG SL for Prn Chest Pain, (Reported) Ondansetron* (Zofran*), 4 MG ORAL Q6H PRN for Nausea & Vomiting, (Reported) Ondansetron* (Zofran*), 4 MG GT Q6H PRN for Nausea & Vomiting, (Reported) Polyethylene Glycol 3350* (Miralax*), 17 GM GT DAILY PRN for Constipation, ( Reported) Polyethylene Glycol 3350* (Miralax*), 17 GM GT DAILY PRN for Constipation, ( Reported) Temazepam* (Restoril*), 15 MG ORAL BEDTIME PRN for Insomnia, (Reported) Patient History Healthcare decision maker Resuscitation status Advanced Directive on File Past Medical/Surgical History Past Medical/Surgical History: (1) Alzheimer's dementia (2) HTN (hypertension) (3) Anemia (4) Bleeding from gastrostomy tube site (5) Schizophrenia (6) Cachexia Review of Systems All Other Systems: negative except mentioned in HPI Physical Exam General Appearance: cachetic Lines, tubes and drains: peripheral HEENT: normocephalic, atraumatic Neck: non-tender, normal alignment Respiratory/Chest: chest wall non-tender, lungs clear Breasts: no masses Cardiovascular/Chest: normal peripheral pulses Abdomen: normal bowel sounds, non tender Genitourinary/Rectal: normal genital exam Extremities: normal range of motion Skin Exam: normal pigmentation 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 Lymphatic: anterior cervical Last 24 Hour Vital Signs Date Time Temp Pulse Resp B/P (MAP) Pulse Ox O2 Delivery O2 Flow Rate FiO2 09/18/17 20:00 98.1 79 19 109/70 92 Nasal Cannula 2.0 09/18/17 19:20 Nasal Cannula 2.0 28 09/18/17 19:20 97 Nasal Cannula 2.0 28 09/18/17 16:26 97.7 79 21 116/72 95 09/18/17 13:31 92 Nasal Cannula 2.0 28 09/18/17 13:30 Nasal Cannula 2.0 28 09/18/17 12:00 98.1 72 20 100/63 94 09/18/17 08:00 98.2 83 20 114/68 97 09/18/17 04:47 98.4 83 18 114/69 93 Nasal Cannula 2.0 09/18/17 00:37 98.2 77 19 105/71 97 Nasal Cannula 2.0 Intake and Output 09/17/17 09/18/17 19:00 07:00 Intake Total 1110 ml Output Total 600 ml Balance 510 ml IV Total 1110 ml Output Urine Total 600 ml # Voids 2 # Bowel Movements 2 Laboratory Tests Test 09/18/17 06:50 White Blood Count 9.1 K/UL (4.8-10.8) Red Blood Count 3.23 M/UL (4.70-6.10) L Hemoglobin 8.3 G/DL (14.2-18.0) L Hematocrit 26.7 % (42.0-52.0) L Mean Corpuscular Volume 83 FL (80-99) Mean Corpuscular Hemoglobin 25.7 PG (27.0-31.0) L Mean Corpuscular Hemoglobin Concent 31.2 G/DL (32.0-36.0) L Red Cell Distribution Width 16.8 % (11.6-14.8) H Platelet Count 176 K/UL (150-450) Mean Platelet Volume 11.1 FL (6.5-10.1) H Neutrophils (%) (Auto) 76.5 % (45.0-75.0) H Lymphocytes (%) (Auto) 10.5 % (20.0-45.0) L Monocytes (%) (Auto) 11.1 % (1.0-10.0) H Eosinophils (%) (Auto) 1.2 % (0.0-3.0) Basophils (%) (Auto) 0.7 % (0.0-2.0) Differential Total Cells Counted 100 Neutrophils % (Manual) 77 % (45-75) H Lymphocytes % (Manual) 10 % (20-45) L Monocytes % (Manual) 11 % (1-10) H Eosinophils % (Manual) 1 % (0-3) Basophils % (Manual) 1 % (0-2) Band Neutrophils 0 % (0-8) Platelet Estimate Adequate Platelet Morphology Normal Hypochromasia 2+ Anisocytosis 1+ Erythrocyte Sedimentation Rate 100 MM/HR (0-20) H Reticulocyte Count 1.8 % (0.0-2.0) Prothrombin Time 33.3 SEC (9.30-11.50) H Prothromb Time International Ratio 3.1 (0.9-1.1) H Activated Partial Thromboplast Time 42 SEC (23-33) H Sodium Level 143 MMOL/L (136-145) Potassium Level 4.2 MMOL/L (3.5-5.1) Chloride Level 110 MMOL/L (98-107) H Carbon Dioxide Level 26 MMOL/L (21-32) Anion Gap 7 mmol/L (5-15) Blood Urea Nitrogen 28 mg/dL (7-18) H Creatinine 0.8 MG/DL (0.55-1.30) Estimat Glomerular Filtration Rate > 60 mL/min (>60) Glucose Level 84 MG/DL (74-106) Calcium Level 7.9 MG/DL (8.5-10.1) L Iron Level 21 ug/dL (50-175) L Total Iron Binding Capacity 226 ug/dL (250-450) L Percent Iron Saturation 9 % (15-50) L Unsaturated Iron Binding 205 ug/dL (112-346) Total Bilirubin 0.6 MG/DL (0.2-1.0) Aspartate Amino Transf (AST/SGOT) 85 U/L (15-37) H Alanine Aminotransferase (ALT/SGPT) 80 U/L (12-78) H Alkaline Phosphatase 84 U/L (46-116) Lactate Dehydrogenase 227 U/L (81-234) Total Protein 7.0 G/DL (6.4-8.2) Albumin 2.1 G/DL (3.4-5.0) L Globulin 4.9 g/dL Albumin/Globulin Ratio 0.4 (1.0-2.7) L Vitamin B12 Level 1473 PG/ML (193-986) H Folate 39.8 NG/ML (8.6-58.9) Height (Feet): 6 Height (Inches): 0.00 Weight (Pounds): 132 Medications Current Medications Medications (Trade) Dose Ordered Sig/Gloria Route PRN Reason Start Time Stop Time Status Last Admin Dose Admin Acetaminophen (Tylenol) 650 mg Q4H PRN ORAL fever 09/17/17 21:15 10/17/17 21:14 Albuterol/ Ipratropium (Albuterol/ Ipratropium) 3 ml Q4H PRN HHN Shortness of Breath 09/17/17 21:15 09/22/17 21:14 Amiodarone HCl (Cordarone) 200 mg BID GT 09/18/17 09:00 10/18/17 08:59 09/18/17 18:22 Cefepime HCl 2 gm/ Dextrose 110 ml @ 220 mls/hr EVERY 12 HOURS IV 09/18/17 09:00 09/25/17 08:59 09/18/17 21:02 Clotrimazole (Lotrimin) 1 applic EVERY 12 HOURS TOPIC 09/18/17 21:00 10/18/17 20:59 09/18/17 20:58 Dextrose (Dextrose 50%) STAT PRN IV Hypoglycemia 09/17/17 21:15 10/17/17 21:14 Heparin Sodium (Porcine) (Heparin 5000 units/ml) 5,000 units EVERY 12 HOURS SUBQ 09/18/17 09:00 10/18/17 08:59 09/18/17 21:00 Lorazepam (Ativan) 1 mg Q6H PRN ORAL For Anxiety 09/17/17 21:15 09/24/17 21:14 Morphine Sulfate (Morphine Sulfate) 2 mg Q4H PRN IVP Moderate Pain (Pain Scale 4-6) 09/17/17 21:15 09/24/17 21:14 Nitroglycerin (Ntg) 0.4 mg Every 5 Minutes PRN SL Prn Chest Pain 09/17/17 21:15 10/17/17 21:14 Ondansetron HCl (Zofran) 4 mg Q6H PRN IVP Nausea & Vomiting 09/17/17 21:15 10/17/17 21:14 Ondansetron HCl (Zofran) 4 mg Q6H PRN ORAL Nausea & Vomiting 09/17/17 21:15 10/17/17 21:14 Polyethylene Glycol (Miralax) 17 gm DAILYPRN PRN ORAL Constipation 09/17/17 21:15 10/17/17 21:14 Promethazine HCl/ Codeine (Phenergan with Codeine) 5 ml Q4H PRN ORAL For Cough 09/17/17 21:15 10/17/17 21:14 Temazepam (Restoril) 15 mg HSPRN PRN ORAL Insomnia 09/17/17 21:15 09/24/17 21:14 Vancomycin HCl 1 gm/Dextrose 275 ml @ 183.3 mls/ hr Q12HR@1000,2200 IVPB 09/18/17 10:00 09/23/17 09:59 09/18/17 21:39 Assessment/Plan Problem List: (1) Schizophrenia ICD Codes: F20.9 - Schizophrenia, unspecified SNOMED: 28712477 (2) Cachexia ICD Codes: R64 - Cachexia SNOMED: 849137253 (3) Alzheimer's dementia ICD Codes: G30.9 - Alzheimer's disease, unspecified SNOMED: 76480583 (4) Malnutrition ICD Codes: E46 - Unspecified protein-calorie malnutrition SNOMED: 65386043 (5) Cellulitis of right elbow ICD Codes: L03.113 - Cellulitis of right upper limb SNOMED: 395984021 (6) COPD (chronic obstructive pulmonary disease) ICD Codes: J44.9 - Chronic obstructive pulmonary disease, unspecified SNOMED: 77022958 Assessment/Plan respiratory treatment IV abx titrate fio2 check cultures wound care dvt prophylaxis ALMA LINDO Sep 18, 2017 23:05
[2017-09-19] VITALS (11 sets, daily range): BP systolic 79–113; BP diastolic 48–75
[2017-09-19 07:36] LABS: ANION GAP 6 mmol/L (5-15); BLOOD UREA NITROGEN 25 mg/dL (7-18); CALCIUM 7.9 MG/DL (8.5-10.1); CARBON DIOXIDE 27 MMOL/L (21-32); CHLORIDE 110 MMOL/L (98-107); CREATININE 0.8 MG/DL (0.55-1.30); SODIUM 143 MMOL/L (136-145)
[2017-09-19 07:53] LABS: BASOPHILS % (AUTO) 0.8 % (0.0-2.0); EOSINOPHILS % (AUTO) 2.3 % (0.0-3.0); HEMATOCRIT 27.3 % (42.0-52.0); HEMOGLOBIN 8.3 G/DL (14.2-18.0); LYMPHOCYTES % (AUTO) 10.9 % (20.0-45.0); MEAN CORPUSCULAR VOLUME 83 FL (80-99); MONOCYTES % (AUTO) 15.6 % (1.0-10.0); NEUTROPHILS % (AUTO) 70.5 % (45.0-75.0); PLATELET COUNT 180 K/UL (150-450); RED CELL DISTRIBUTION WIDTH 16.7 % (11.6-14.8); WHITE BLOOD COUNT 5.7 K/UL (4.8-10.8)
[2017-09-19] MEDS: Cefepime HCl 2 GM in D5W 110 ML IV SCH ×2 (09:45→20:25)
[2017-09-19] MEDS: Amiodarone 200mg tab GT SCH ×2 (09:45→19:17)
[2017-09-19] MEDS: Heparin 5000 units/ml inj SUBQ SCH ×2 (09:47→20:27)
--- NOTE | 2017-09-19 14:42 | Infectious Diseases Prog Note ---
Assessment/Plan Assessment/Plan A; Cellulitis of R arm Dementia Anemia Gastrostomy status P; Continue Vancomycin & Cefepime will fu venous duplex of arms Subjective ROS Limited/Unobtainable: Yes Allergies: Coded Allergies: No Known Allergies (Unverified , 12/05/15) Objective Vital Signs Last 24 Hour Vital Signs Date Time Temp Pulse Resp B/P (MAP) Pulse Ox O2 Delivery O2 Flow Rate FiO2 09/19/17 12:11 81 113/53 09/19/17 12:10 79 79/50 09/19/17 12:00 98.4 80 20 113/53 95 09/19/17 08:36 96 Nasal Cannula 2.0 28 09/19/17 08:36 Nasal Cannula 2.0 28 09/19/17 08:01 98.2 78 21 109/66 97 Nasal Cannula 2.0 09/19/17 08:00 98.2 78 21 109/66 97 09/19/17 04:00 97.8 81 18 108/75 92 Nasal Cannula 2.0 09/19/17 00:00 98.8 81 18 111/67 93 Nasal Cannula 2.0 09/18/17 20:00 98.1 79 19 109/70 92 Nasal Cannula 2.0 09/18/17 19:20 Nasal Cannula 2.0 28 09/18/17 19:20 97 Nasal Cannula 2.0 28 09/18/17 16:26 97.7 79 21 116/72 95 Height (Feet): 6 Height (Inches): 0.00 Weight (Pounds): 132 General Appearance: no acute distress HEENT: mucous membranes moist Respiratory/Chest: lungs clear Cardiovascular: normal rate Abdomen: soft, non tender, other - GT feeding Extremities: other - edema of R arm Neurologic/Psychiatric: aphasia Microbiology Date/Time Source Procedure Growth Status 09/17/17 21:15 Blood Blood Culture - Preliminary NO GROWTH AFTER 24 HOURS Resulted 09/17/17 21:00 Blood Blood Culture - Preliminary NO GROWTH AFTER 24 HOURS Resulted Laboratory Tests Test 09/19/17 05:20 09/19/17 09:10 White Blood Count 5.7 K/UL (4.8-10.8) Red Blood Count 3.30 M/UL (4.70-6.10) L Hemoglobin 8.3 G/DL (14.2-18.0) L Hematocrit 27.3 % (42.0-52.0) L Mean Corpuscular Volume 83 FL (80-99) Mean Corpuscular Hemoglobin 25.2 PG (27.0-31.0) L Mean Corpuscular Hemoglobin Concent 30.5 G/DL (32.0-36.0) L Red Cell Distribution Width 16.7 % (11.6-14.8) H Platelet Count 180 K/UL (150-450) Mean Platelet Volume 11.1 FL (6.5-10.1) H Neutrophils (%) (Auto) 70.5 % (45.0-75.0) Lymphocytes (%) (Auto) 10.9 % (20.0-45.0) L Monocytes (%) (Auto) 15.6 % (1.0-10.0) H Eosinophils (%) (Auto) 2.3 % (0.0-3.0) Basophils (%) (Auto) 0.8 % (0.0-2.0) Sodium Level 143 MMOL/L (136-145) Potassium Level 4.0 MMOL/L (3.5-5.1) Chloride Level 110 MMOL/L (98-107) H Carbon Dioxide Level 27 MMOL/L (21-32) Anion Gap 6 mmol/L (5-15) Blood Urea Nitrogen 25 mg/dL (7-18) H Creatinine 0.8 MG/DL (0.55-1.30) Estimat Glomerular Filtration Rate > 60 mL/min (>60) Glucose Level 106 MG/DL (74-106) Calcium Level 7.9 MG/DL (8.5-10.1) L Vancomycin Level Trough 19.8 ug/mL (5.0-12.0) H Current Medications Medications (Trade) Dose Ordered Sig/Gloria Route PRN Reason Start Time Stop Time Status Last Admin Dose Admin Acetaminophen (Tylenol) 650 mg Q4H PRN ORAL fever 09/17/17 21:15 10/17/17 21:14 Albuterol/ Ipratropium (Albuterol/ Ipratropium) 3 ml Q4H PRN HHN Shortness of Breath 09/17/17 21:15 09/22/17 21:14 Amiodarone HCl (Cordarone) 200 mg BID GT 09/18/17 09:00 10/18/17 08:59 09/19/17 09:45 Cefepime HCl 2 gm/ Dextrose 110 ml @ 220 mls/hr EVERY 12 HOURS IV 09/18/17 09:00 09/25/17 08:59 09/19/17 09:45 Clotrimazole (Lotrimin) 1 applic EVERY 12 HOURS TOPIC 09/18/17 21:00 10/18/17 20:59 09/19/17 10:23 Dextrose (Dextrose 50%) STAT PRN IV Hypoglycemia 09/17/17 21:15 10/17/17 21:14 Heparin Sodium (Porcine) (Heparin 5000 units/ml) 5,000 units EVERY 12 HOURS SUBQ 09/18/17 09:00 10/18/17 08:59 09/19/17 09:47 Lorazepam (Ativan) 1 mg Q6H PRN ORAL For Anxiety 09/17/17 21:15 09/24/17 21:14 Morphine Sulfate (Morphine Sulfate) 2 mg Q4H PRN IVP Moderate Pain (Pain Scale 4-6) 09/17/17 21:15 09/24/17 21:14 Nitroglycerin (Ntg) 0.4 mg Every 5 Minutes PRN SL Prn Chest Pain 09/17/17 21:15 10/17/17 21:14 Ondansetron HCl (Zofran) 4 mg Q6H PRN IVP Nausea & Vomiting 09/17/17 21:15 10/17/17 21:14 Ondansetron HCl (Zofran) 4 mg Q6H PRN ORAL Nausea & Vomiting 09/17/17 21:15 10/17/17 21:14 Polyethylene Glycol (Miralax) 17 gm DAILYPRN PRN ORAL Constipation 09/17/17 21:15 10/17/17 21:14 Promethazine HCl/ Codeine (Phenergan with Codeine) 5 ml Q4H PRN ORAL For Cough 09/17/17 21:15 10/17/17 21:14 Temazepam (Restoril) 15 mg HSPRN PRN ORAL Insomnia 09/17/17 21:15 09/24/17 21:14 Vancomycin HCl (Vanco rx to dose) 1 ea DAILY PRN MISC per rx protocol 09/19/17 10:30 10/19/17 10:29 Vancomycin/Sodium Chloride 250 ml @ 166.667 mls/hr Q12HR@0200,1400 IVPB 09/19/17 14:00 09/24/17 13:59 MATY ROJAS Sep 19, 2017 14:42
--- NOTE | 2017-09-19 15:01 | General Progress Note ---
Assessment/Plan Problem List: (1) Malnutrition ICD Codes: E46 - Unspecified protein-calorie malnutrition SNOMED: 20911096 (2) UTI (urinary tract infection) ICD Codes: N39.0 - Urinary tract infection, site not specified SNOMED: 09573102 (3) MAR (acute kidney injury) ICD Codes: N17.9 - Acute kidney failure, unspecified SNOMED: 95647036 (4) Encephalopathy ICD Codes: G93.40 - Encephalopathy, unspecified SNOMED: 52457966, 238508200 (5) Alzheimer's dementia ICD Codes: G30.9 - Alzheimer's disease, unspecified SNOMED: 08658665 (6) Cellulitis of right elbow ICD Codes: L03.113 - Cellulitis of right upper limb SNOMED: 008043930 (7) Anemia ICD Codes: D64.9 - Anemia, unspecified SNOMED: 624089323 (8) HTN (hypertension) ICD Codes: I10 - Essential (primary) hypertension SNOMED: 32366837 Status: stable, progressing, tolerating diet Assessment/Plan otpt diet wound care abx cbc bmp am Subjective Constitutional: Reports: weakness Allergies: Coded Allergies: No Known Allergies (Unverified , 12/05/15) All Systems: reviewed and negative except above Subjective o2nc sleepy Objective Last 24 Hour Vital Signs Date Time Temp Pulse Resp B/P (MAP) Pulse Ox O2 Delivery O2 Flow Rate FiO2 09/19/17 12:11 81 113/53 09/19/17 12:10 79 79/50 09/19/17 12:00 98.4 80 20 113/53 95 09/19/17 08:36 96 Nasal Cannula 2.0 28 09/19/17 08:36 Nasal Cannula 2.0 28 09/19/17 08:01 98.2 78 21 109/66 97 Nasal Cannula 2.0 09/19/17 08:00 98.2 78 21 109/66 97 09/19/17 04:00 97.8 81 18 108/75 92 Nasal Cannula 2.0 09/19/17 00:00 98.8 81 18 111/67 93 Nasal Cannula 2.0 09/18/17 20:00 98.1 79 19 109/70 92 Nasal Cannula 2.0 09/18/17 19:20 Nasal Cannula 2.0 28 09/18/17 19:20 97 Nasal Cannula 2.0 28 09/18/17 16:26 97.7 79 21 116/72 95 Intake and Output 09/18/17 09/19/17 19:00 07:00 Intake Total 385 ml Balance 385 ml Intake Oral 0 ml IV Total 385 ml # Voids 1 3 # Bowel Movements 1 Laboratory Tests 09/19/17 05:20: White Blood Count 5.7, Red Blood Count 3.30L, Hemoglobin 8.3L, Hematocrit 27.3L , Mean Corpuscular Volume 83, Mean Corpuscular Hemoglobin 25.2L, Mean Corpuscular Hemoglobin Concent 30.5L, Red Cell Distribution Width 16.7H, Platelet Count 180, Mean Platelet Volume 11.1H, Neutrophils (%) (Auto) 70.5, Lymphocytes (%) (Auto) 10.9L, Monocytes (%) (Auto) 15.6H, Eosinophils (%) (Auto ) 2.3, Basophils (%) (Auto) 0.8, Sodium Level 143, Potassium Level 4.0, Chloride Level 110H, Carbon Dioxide Level 27, Anion Gap 6, Blood Urea Nitrogen 25H, Creatinine 0.8, Estimat Glomerular Filtration Rate > 60, Glucose Level 106 , Calcium Level 7.9L 09/19/17 09:10: Vancomycin Level Trough 19.8H Height (Feet): 6 Height (Inches): 0.00 Weight (Pounds): 132 General Appearance: lethargic EENT: normal ENT inspection Neck: normal alignment Cardiovascular: normal peripheral pulses, normal rate, regular rhythm Respiratory/Chest: chest wall non-tender, lungs clear, normal breath sounds Abdomen: normal bowel sounds, non tender, soft Extremities: normal inspection Edema: no edema noted Arm (L), no edema noted Arm (R), no edema noted Leg (L), no edema noted Leg (R), no edema noted Pedal (L), no edema noted Pedal (R), no edema noted Generalized Neurologic: motor weakness Skin: normal pigmentation, warm/dry ALONDRA SINGH Sep 19, 2017 15:01
[2017-09-19] MEDS: Vancomycin 750mg/NS 250ml IVPB SCH (15:15)
--- NOTE | 2017-09-19 22:51 | Pulmonology Progress Note ---
Assessment/Plan Problems: (1) Cellulitis of right elbow (2) COPD (chronic obstructive pulmonary disease) (3) Schizophrenia (4) Cachexia (5) Alzheimer's dementia (6) HTN (hypertension) Assessment/Plan improivng temp is lower check electroltyes tolerating diet continue abx wound care Subjective ROS Limited/Unobtainable: No Allergies: Coded Allergies: No Known Allergies (Unverified , 12/05/15) Objective Last 24 Hour Vital Signs Date Time Temp Pulse Resp B/P (MAP) Pulse Ox O2 Delivery O2 Flow Rate FiO2 09/19/17 20:00 97.9 78 20 103/67 97 09/19/17 16:15 101/58 09/19/17 16:15 100/55 09/19/17 16:00 98.4 79 20 85/48 97 09/19/17 12:11 81 113/53 09/19/17 12:10 79 79/50 09/19/17 12:00 98.4 80 20 113/53 95 09/19/17 08:36 96 Nasal Cannula 2.0 28 09/19/17 08:36 Nasal Cannula 2.0 28 09/19/17 08:01 98.2 78 21 109/66 97 Nasal Cannula 2.0 09/19/17 08:00 98.2 78 21 109/66 97 09/19/17 04:00 97.8 81 18 108/75 92 Nasal Cannula 2.0 09/19/17 00:00 98.8 81 18 111/67 93 Nasal Cannula 2.0 Intake and Output 09/18/17 09/19/17 19:00 07:00 Intake Total 385 ml Balance 385 ml Intake Oral 0 ml IV Total 385 ml # Voids 1 3 # Bowel Movements 1 Objective General Appearance: WD/WN, no apparent distress Lines, tubes and drains: peripheral HEENT: normocephalic, atraumatic Neck: non-tender, normal alignment Respiratory/Chest: chest wall non-tender, lungs clear Cardiovascular/Chest: regular rhythm Abdomen: normal bowel sounds, non tender Extremities: normal range of motion, non-tender Skin Exam: normal pigmentation Neurologic: no motor/sensory deficits Microbiology Date/Time Source Procedure Growth Status 09/17/17 21:15 Blood Blood Culture - Preliminary NO GROWTH AFTER 24 HOURS Resulted 09/17/17 21:00 Blood Blood Culture - Preliminary NO GROWTH AFTER 24 HOURS Resulted Laboratory Tests 09/19/17 05:20: White Blood Count 5.7, Red Blood Count 3.30L, Hemoglobin 8.3L, Hematocrit 27.3L , Mean Corpuscular Volume 83, Mean Corpuscular Hemoglobin 25.2L, Mean Corpuscular Hemoglobin Concent 30.5L, Red Cell Distribution Width 16.7H, Platelet Count 180, Mean Platelet Volume 11.1H, Neutrophils (%) (Auto) 70.5, Lymphocytes (%) (Auto) 10.9L, Monocytes (%) (Auto) 15.6H, Eosinophils (%) (Auto ) 2.3, Basophils (%) (Auto) 0.8, Sodium Level 143, Potassium Level 4.0, Chloride Level 110H, Carbon Dioxide Level 27, Anion Gap 6, Blood Urea Nitrogen 25H, Creatinine 0.8, Estimat Glomerular Filtration Rate > 60, Glucose Level 106 , Calcium Level 7.9L 09/19/17 09:10: Vancomycin Level Trough 19.8H Current Medications Medications (Trade) Dose Ordered Sig/Gloria Route PRN Reason Start Time Stop Time Status Last Admin Dose Admin Acetaminophen (Tylenol) 650 mg Q4H PRN ORAL fever 09/17/17 21:15 10/17/17 21:14 Albuterol/ Ipratropium (Albuterol/ Ipratropium) 3 ml Q4H PRN HHN Shortness of Breath 09/17/17 21:15 09/22/17 21:14 Amiodarone HCl (Cordarone) 200 mg BID GT 09/18/17 09:00 10/18/17 08:59 09/19/17 19:17 Cefepime HCl 2 gm/ Dextrose 110 ml @ 220 mls/hr EVERY 12 HOURS IV 09/18/17 09:00 09/25/17 08:59 09/19/17 20:25 Clotrimazole (Lotrimin) 1 applic EVERY 12 HOURS TOPIC 09/18/17 21:00 10/18/17 20:59 09/19/17 20:25 Dextrose (Dextrose 50%) STAT PRN IV Hypoglycemia 09/17/17 21:15 10/17/17 21:14 Heparin Sodium (Porcine) (Heparin 5000 units/ml) 5,000 units EVERY 12 HOURS SUBQ 09/18/17 09:00 10/18/17 08:59 09/19/17 20:27 Lorazepam (Ativan) 1 mg Q6H PRN ORAL For Anxiety 09/17/17 21:15 09/24/17 21:14 Morphine Sulfate (Morphine Sulfate) 2 mg Q4H PRN IVP Moderate Pain (Pain Scale 4-6) 09/17/17 21:15 09/24/17 21:14 Nitroglycerin (Ntg) 0.4 mg Every 5 Minutes PRN SL Prn Chest Pain 09/17/17 21:15 10/17/17 21:14 Ondansetron HCl (Zofran) 4 mg Q6H PRN IVP Nausea & Vomiting 09/17/17 21:15 10/17/17 21:14 Ondansetron HCl (Zofran) 4 mg Q6H PRN ORAL Nausea & Vomiting 09/17/17 21:15 10/17/17 21:14 Polyethylene Glycol (Miralax) 17 gm DAILYPRN PRN ORAL Constipation 09/17/17 21:15 10/17/17 21:14 Promethazine HCl/ Codeine (Phenergan with Codeine) 5 ml Q4H PRN ORAL For Cough 09/17/17 21:15 10/17/17 21:14 Temazepam (Restoril) 15 mg HSPRN PRN ORAL Insomnia 09/17/17 21:15 09/24/17 21:14 Vancomycin HCl (Vanco rx to dose) 1 ea DAILY PRN MISC per rx protocol 09/19/17 10:30 10/19/17 10:29 Vancomycin/Sodium Chloride 250 ml @ 166.667 mls/hr Q12HR@0200,1400 IVPB 09/19/17 14:00 09/24/17 13:59 09/19/17 15:15 ALMA LINDO Sep 19, 2017 22:51
[2017-09-20] MEDS: Vancomycin 750mg/NS 250ml IVPB SCH ×2 (02:00→15:13)
[2017-09-20 04:18] VITALS: BP 99/64
[2017-09-20 08:15] VITALS: BP 122/73
[2017-09-20 08:44] LABS: BASOPHILS % (AUTO) 1.6 % (0.0-2.0); EOSINOPHILS % (AUTO) 2.6 % (0.0-3.0); HEMATOCRIT 26.8 % (42.0-52.0); HEMOGLOBIN 8.1 G/DL (14.2-18.0); LYMPHOCYTES % (AUTO) 22.6 % (20.0-45.0); MEAN CORPUSCULAR VOLUME 84 FL (80-99); MONOCYTES % (AUTO) 16.1 % (1.0-10.0); NEUTROPHILS % (AUTO) 57.1 % (45.0-75.0); PLATELET COUNT 162 K/UL (150-450); RED CELL DISTRIBUTION WIDTH 17.1 % (11.6-14.8); WHITE BLOOD COUNT 5.3 K/UL (4.8-10.8)
[2017-09-20 09:09] LABS: ANION GAP 8 mmol/L (5-15); BLOOD UREA NITROGEN 23 mg/dL (7-18); CALCIUM 8.7 MG/DL (8.5-10.1); CARBON DIOXIDE 27 MMOL/L (21-32); CHLORIDE 111 MMOL/L (98-107); CREATININE 0.8 MG/DL (0.55-1.30); SODIUM 145 MMOL/L (136-145)
[2017-09-20] MEDS: Cefepime HCl 2 GM in D5W 110 ML IV SCH ×2 (10:27→21:54)
[2017-09-20] MEDS ORDERED: BUMETANIDE 0.25 MG/ML IV SCH (10:30)
[2017-09-20] MEDS: Amiodarone 200mg tab GT SCH ×2 (10:30→19:02)
[2017-09-20] MEDS: Memantine 5 MG TAB ORAL SCH ×2 (10:31→19:02)
[2017-09-20] MEDS: Heparin 5000 units/ml inj SUBQ SCH ×2 (10:38→21:57)
--- NOTE | 2017-09-20 11:40 | General Progress Note ---
Assessment/Plan Problem List: (1) Malnutrition ICD Codes: E46 - Unspecified protein-calorie malnutrition SNOMED: 30110699 (2) UTI (urinary tract infection) ICD Codes: N39.0 - Urinary tract infection, site not specified SNOMED: 30804001 (3) MAR (acute kidney injury) ICD Codes: N17.9 - Acute kidney failure, unspecified SNOMED: 35442091 (4) Encephalopathy ICD Codes: G93.40 - Encephalopathy, unspecified SNOMED: 53555068, 972597546 (5) Alzheimer's dementia ICD Codes: G30.9 - Alzheimer's disease, unspecified SNOMED: 44481809 (6) Cellulitis of right elbow ICD Codes: L03.113 - Cellulitis of right upper limb SNOMED: 151500313 (7) Anemia ICD Codes: D64.9 - Anemia, unspecified SNOMED: 834541661 (8) HTN (hypertension) ICD Codes: I10 - Essential (primary) hypertension SNOMED: 64073570 Status: stable, progressing, tolerating diet Assessment/Plan otpt diet wound care abx cbc bmp am dc plan Subjective Constitutional: Reports: weakness Allergies: Coded Allergies: No Known Allergies (Unverified , 12/05/15) All Systems: reviewed and negative except above Subjective o2nc sleepy Objective Last 24 Hour Vital Signs Date Time Temp Pulse Resp B/P (MAP) Pulse Ox O2 Delivery O2 Flow Rate FiO2 09/20/17 08:15 97.1 64 18 122/73 99 Nasal Cannula 2.0 09/20/17 07:22 99 Nasal Cannula 2.0 28 09/20/17 07:22 Nasal Cannula 2.0 28 09/20/17 04:18 98.1 73 20 99/64 96 Nasal Cannula 09/19/17 23:59 98.1 79 20 101/65 98 09/19/17 20:00 97.9 78 20 103/67 97 09/19/17 19:00 Nasal Cannula 2.0 28 09/19/17 19:00 97 Nasal Cannula 2.0 28 09/19/17 16:15 101/58 09/19/17 16:15 100/55 09/19/17 16:00 98.4 79 20 85/48 97 09/19/17 12:11 81 113/53 09/19/17 12:10 79 79/50 09/19/17 12:00 98.4 80 20 113/53 95 Intake and Output 09/19/17 09/20/17 19:00 07:00 Intake Total 800 ml Balance 800 ml Free Water 150 ml Tube Feeding 650 ml # Voids 6 1 Laboratory Tests 09/20/17 07:50: White Blood Count 5.3, Red Blood Count 3.20L, Hemoglobin 8.1L, Hematocrit 26.8L , Mean Corpuscular Volume 84, Mean Corpuscular Hemoglobin 25.3L, Mean Corpuscular Hemoglobin Concent 30.2L, Red Cell Distribution Width 17.1H, Platelet Count 162, Mean Platelet Volume 9.5, Neutrophils (%) (Auto) 57.1, Lymphocytes (%) (Auto) 22.6, Monocytes (%) (Auto) 16.1H, Eosinophils (%) (Auto) 2.6, Basophils (%) (Auto) 1.6, Sodium Level 145, Potassium Level 4.0, Chloride Level 111H, Carbon Dioxide Level 27, Anion Gap 8, Blood Urea Nitrogen 23H, Creatinine 0.8, Estimat Glomerular Filtration Rate > 60, Glucose Level 102, Calcium Level 8.7 Height (Feet): 6 Height (Inches): 0.00 Weight (Pounds): 132 General Appearance: lethargic EENT: normal ENT inspection Neck: normal alignment Cardiovascular: normal peripheral pulses, normal rate, regular rhythm Respiratory/Chest: chest wall non-tender, lungs clear, normal breath sounds Abdomen: normal bowel sounds, non tender, soft Extremities: normal inspection Edema: no edema noted Arm (L), no edema noted Arm (R), no edema noted Leg (L), no edema noted Leg (R), no edema noted Pedal (L), no edema noted Pedal (R), no edema noted Generalized Neurologic: motor weakness Skin: normal pigmentation, warm/dry ALONDRA ISNGH Sep 20, 2017 11:40
[2017-09-20 11:57] VITALS: BP 97/72
--- NOTE | 2017-09-20 13:15 | Infectious Diseases Prog Note ---
Assessment/Plan Assessment/Plan A; Cellulitis of R arm Dementia Anemia Gastrostomy status P; Continue Vancomycin & Cefepime will fu venous duplex of arms Subjective ROS Limited/Unobtainable: Yes Allergies: Coded Allergies: No Known Allergies (Unverified , 12/05/15) Objective Vital Signs Last 24 Hour Vital Signs Date Time Temp Pulse Resp B/P (MAP) Pulse Ox O2 Delivery O2 Flow Rate FiO2 09/20/17 11:57 97.3 66 18 97/72 94 Nasal Cannula 2.0 09/20/17 08:15 97.1 64 18 122/73 99 Nasal Cannula 2.0 09/20/17 07:22 99 Nasal Cannula 2.0 28 09/20/17 07:22 Nasal Cannula 2.0 28 09/20/17 04:18 98.1 73 20 99/64 96 Nasal Cannula 09/19/17 23:59 98.1 79 20 101/65 98 09/19/17 20:00 97.9 78 20 103/67 97 09/19/17 19:00 Nasal Cannula 2.0 28 09/19/17 19:00 97 Nasal Cannula 2.0 28 09/19/17 16:15 101/58 09/19/17 16:15 100/55 09/19/17 16:00 98.4 79 20 85/48 97 Height (Feet): 6 Height (Inches): 0.00 Weight (Pounds): 132 General Appearance: no acute distress HEENT: mucous membranes moist Respiratory/Chest: lungs clear Cardiovascular: normal rate Abdomen: soft, non tender, other - GT feeding Extremities: other - edema of R arm Skin: other - faint erythema R arm Neurologic/Psychiatric: unresponsiveness Microbiology Date/Time Source Procedure Growth Status 09/17/17 21:15 Blood Blood Culture - Preliminary NO GROWTH AFTER 48 HOURS Resulted 09/17/17 21:00 Blood Blood Culture - Preliminary NO GROWTH AFTER 48 HOURS Resulted 09/17/17 21:00 Nasal Nares MRSA Culture - Final NO METHICILLIN RESISTANT STAPH AUREUS... Complete 09/17/17 21:00 Rectum VRE Culture - Final Enterococcus Faecalis - Vre Complete Laboratory Tests Test 09/20/17 07:50 White Blood Count 5.3 K/UL (4.8-10.8) Red Blood Count 3.20 M/UL (4.70-6.10) L Hemoglobin 8.1 G/DL (14.2-18.0) L Hematocrit 26.8 % (42.0-52.0) L Mean Corpuscular Volume 84 FL (80-99) Mean Corpuscular Hemoglobin 25.3 PG (27.0-31.0) L Mean Corpuscular Hemoglobin Concent 30.2 G/DL (32.0-36.0) L Red Cell Distribution Width 17.1 % (11.6-14.8) H Platelet Count 162 K/UL (150-450) Mean Platelet Volume 9.5 FL (6.5-10.1) Neutrophils (%) (Auto) 57.1 % (45.0-75.0) Lymphocytes (%) (Auto) 22.6 % (20.0-45.0) Monocytes (%) (Auto) 16.1 % (1.0-10.0) H Eosinophils (%) (Auto) 2.6 % (0.0-3.0) Basophils (%) (Auto) 1.6 % (0.0-2.0) Sodium Level 145 MMOL/L (136-145) Potassium Level 4.0 MMOL/L (3.5-5.1) Chloride Level 111 MMOL/L (98-107) H Carbon Dioxide Level 27 MMOL/L (21-32) Anion Gap 8 mmol/L (5-15) Blood Urea Nitrogen 23 mg/dL (7-18) H Creatinine 0.8 MG/DL (0.55-1.30) Estimat Glomerular Filtration Rate > 60 mL/min (>60) Glucose Level 102 MG/DL (74-106) Calcium Level 8.7 MG/DL (8.5-10.1) Current Medications Medications (Trade) Dose Ordered Sig/Gloria Route PRN Reason Start Time Stop Time Status Last Admin Dose Admin Acetaminophen (Tylenol) 650 mg Q4H PRN ORAL fever 09/17/17 21:15 10/17/17 21:14 Albuterol/ Ipratropium (Albuterol/ Ipratropium) 3 ml Q4H PRN HHN Shortness of Breath 09/17/17 21:15 09/22/17 21:14 Amiodarone HCl (Cordarone) 200 mg BID GT 09/18/17 09:00 10/18/17 08:59 09/20/17 10:30 Cefepime HCl 2 gm/ Dextrose 110 ml @ 220 mls/hr EVERY 12 HOURS IV 09/18/17 09:00 09/25/17 08:59 09/20/17 10:27 Clotrimazole (Lotrimin) 1 applic EVERY 12 HOURS TOPIC 09/18/17 21:00 10/18/17 20:59 09/20/17 10:31 Dextrose (Dextrose 50%) STAT PRN IV Hypoglycemia 09/17/17 21:15 10/17/17 21:14 Heparin Sodium (Porcine) (Heparin 5000 units/ml) 5,000 units EVERY 12 HOURS SUBQ 09/18/17 09:00 10/18/17 08:59 09/20/17 10:38 Lorazepam (Ativan) 1 mg Q6H PRN ORAL For Anxiety 09/17/17 21:15 09/24/17 21:14 Memantine (Namenda) 5 mg BID ORAL 09/20/17 09:00 10/20/17 08:59 09/20/17 10:31 Morphine Sulfate (Morphine Sulfate) 2 mg Q4H PRN IVP Moderate Pain (Pain Scale 4-6) 09/17/17 21:15 09/24/17 21:14 Nitroglycerin (Ntg) 0.4 mg Every 5 Minutes PRN SL Prn Chest Pain 09/17/17 21:15 10/17/17 21:14 Ondansetron HCl (Zofran) 4 mg Q6H PRN IVP Nausea & Vomiting 09/17/17 21:15 10/17/17 21:14 Ondansetron HCl (Zofran) 4 mg Q6H PRN ORAL Nausea & Vomiting 09/17/17 21:15 10/17/17 21:14 Polyethylene Glycol (Miralax) 17 gm DAILYPRN PRN ORAL Constipation 09/17/17 21:15 10/17/17 21:14 Promethazine HCl/ Codeine (Phenergan with Codeine) 5 ml Q4H PRN ORAL For Cough 09/17/17 21:15 10/17/17 21:14 Temazepam (Restoril) 15 mg HSPRN PRN ORAL Insomnia 09/17/17 21:15 09/24/17 21:14 Vancomycin HCl (Vanco rx to dose) 1 ea DAILY PRN MISC per rx protocol 09/19/17 10:30 10/19/17 10:29 Vancomycin/Sodium Chloride 250 ml @ 166.667 mls/hr Q12HR@0200,1400 IVPB 09/19/17 14:00 09/24/17 13:59 09/20/17 02:00 MATY ROJAS Sep 20, 2017 13:15
--- NOTE | 2017-09-20 15:03 | Consultation ---
DATE OF CONSULTATION: 09/20/2016 CONSULTING PHYSICIAN: Cristine Barker M.D. REFERRING PHYSICIAN: Johan Rangel D.O. HISTORY OF PRESENT ILLNESS: The patient is a male patient, who is confused and disorganized male patient came into the [facility] secondary to cellulitis, but this patient has significant right elbow altered mental status. He came from a [facility] with right elbow swelling, diagnosed with reasons, but he also has altered mental status as well as daily psychiatric consultation requested. MEDICAL HISTORY: Arthritis, DVT, Alzheimer disease, anemia, and hypertension. ALLERGIES: No known drug allergies. SOCIAL HISTORY: Lives in a facility. Financially supported by [facility] and Medical. SUBSTANCE ABUSE HISTORY: Denies drug or alcohol use. PAST PSYCHIATRIC HISTORY: Paranoid schizophrenia. Multiple psychiatric admissions. MENTAL STATUS EXAMINATION: This is a 66-year-old male with psychomotor retardation. Mood is depressed. Affect guarded and restricted. Thought process is disorganized and illogical. Denies any current suicidal or homicidal thoughts. Insight and judgment is poor. DIAGNOSIS: Paranoid schizophrenia with acute exacerbation. PLAN: My plan for this patient is right now, I am going to treat this patient with a psychotropic medication regimen consisting of Namenda 5 mg twice a day to prevent any decline in his cognition and he will continue to be followed by Psychiatry throughout hospital course. The patient was seen and assessed at bedside. Chart reviewed and discussed with staff. Supportive therapy provided. I would like to thank Dr. Johan Rangel for this interesting consultation. Cristine Barker M.D. DR: NICHOALS JOB#: [id number] CC:
[2017-09-20 16:00] VITALS: BP_SYST 100; BP_SYST 145; BP_DIAS 70
--- NOTE | 2017-09-20 17:08 | Pulmonology Progress Note ---
Assessment/Plan Problems: (1) Cellulitis of right elbow (2) COPD (chronic obstructive pulmonary disease) (3) Schizophrenia (4) Cachexia (5) Alzheimer's dementia Assessment/Plan looks comfortable improving check cultures respiratory treatment dvrt porphylaxis dc planning soon Subjective ROS Limited/Unobtainable: No Constitutional: Reports: no symptoms HEENT: Repors: no symptoms Respiratory: Reports: no symptoms Cardiovascular: Reports: no symptoms Allergies: Coded Allergies: No Known Allergies (Unverified , 12/05/15) Objective Last 24 Hour Vital Signs Date Time Temp Pulse Resp B/P (MAP) Pulse Ox O2 Delivery O2 Flow Rate FiO2 09/20/17 16:00 97.4 69 18 100/70 97 09/20/17 11:57 97.3 66 18 97/72 94 Nasal Cannula 2.0 09/20/17 08:15 97.1 64 18 122/73 99 Nasal Cannula 2.0 09/20/17 07:22 99 Nasal Cannula 2.0 28 09/20/17 07:22 Nasal Cannula 2.0 28 09/20/17 04:18 98.1 73 20 99/64 96 Nasal Cannula 09/19/17 23:59 98.1 79 20 101/65 98 09/19/17 20:00 97.9 78 20 103/67 97 09/19/17 19:00 Nasal Cannula 2.0 28 09/19/17 19:00 97 Nasal Cannula 2.0 28 Intake and Output 09/19/17 09/20/17 19:00 07:00 Intake Total 800 ml Balance 800 ml Free Water 150 ml Tube Feeding 650 ml # Voids 6 1 Objective General Appearance: no acute distress HEENT: normocephalic, atraumatic Respiratory/Chest: lungs clear, no respiratory distress, no accessory muscle use Cardiovascular: normal rate, no JVD, CL-femoral intact Abdomen: normal bowel sounds, soft, non tender Extremities: no edema Neurologic/Psychiatric: alert, responsive Musculoskeletal: normal muscle bulk Microbiology Date/Time Source Procedure Growth Status 09/17/17 21:15 Blood Blood Culture - Preliminary NO GROWTH AFTER 48 HOURS Resulted 09/17/17 21:00 Blood Blood Culture - Preliminary NO GROWTH AFTER 48 HOURS Resulted 09/17/17 21:00 Nasal Nares MRSA Culture - Final NO METHICILLIN RESISTANT STAPH AUREUS... Complete 09/17/17 21:00 Rectum VRE Culture - Final Enterococcus Faecalis - Vre Complete Laboratory Tests 09/20/17 07:50: White Blood Count 5.3, Red Blood Count 3.20L, Hemoglobin 8.1L, Hematocrit 26.8L , Mean Corpuscular Volume 84, Mean Corpuscular Hemoglobin 25.3L, Mean Corpuscular Hemoglobin Concent 30.2L, Red Cell Distribution Width 17.1H, Platelet Count 162, Mean Platelet Volume 9.5, Neutrophils (%) (Auto) 57.1, Lymphocytes (%) (Auto) 22.6, Monocytes (%) (Auto) 16.1H, Eosinophils (%) (Auto) 2.6, Basophils (%) (Auto) 1.6, Sodium Level 145, Potassium Level 4.0, Chloride Level 111H, Carbon Dioxide Level 27, Anion Gap 8, Blood Urea Nitrogen 23H, Creatinine 0.8, Estimat Glomerular Filtration Rate > 60, Glucose Level 102, Calcium Level 8.7 Current Medications Medications (Trade) Dose Ordered Sig/Gloria Route PRN Reason Start Time Stop Time Status Last Admin Dose Admin Acetaminophen (Tylenol) 650 mg Q4H PRN ORAL fever 09/17/17 21:15 10/17/17 21:14 Albuterol/ Ipratropium (Albuterol/ Ipratropium) 3 ml Q4H PRN HHN Shortness of Breath 09/17/17 21:15 09/22/17 21:14 Amiodarone HCl (Cordarone) 200 mg BID GT 09/18/17 09:00 10/18/17 08:59 09/20/17 10:30 Cefepime HCl 2 gm/ Dextrose 110 ml @ 220 mls/hr EVERY 12 HOURS IV 09/18/17 09:00 09/25/17 08:59 09/20/17 10:27 Clotrimazole (Lotrimin) 1 applic EVERY 12 HOURS TOPIC 09/18/17 21:00 10/18/17 20:59 09/20/17 10:31 Dextrose (Dextrose 50%) STAT PRN IV Hypoglycemia 09/17/17 21:15 10/17/17 21:14 Heparin Sodium (Porcine) (Heparin 5000 units/ml) 5,000 units EVERY 12 HOURS SUBQ 09/18/17 09:00 10/18/17 08:59 09/20/17 10:38 Lorazepam (Ativan) 1 mg Q6H PRN ORAL For Anxiety 09/17/17 21:15 09/24/17 21:14 Memantine (Namenda) 5 mg BID ORAL 09/20/17 09:00 10/20/17 08:59 09/20/17 10:31 Morphine Sulfate (Morphine Sulfate) 2 mg Q4H PRN IVP Moderate Pain (Pain Scale 4-6) 09/17/17 21:15 09/24/17 21:14 Nitroglycerin (Ntg) 0.4 mg Every 5 Minutes PRN SL Prn Chest Pain 09/17/17 21:15 10/17/17 21:14 Ondansetron HCl (Zofran) 4 mg Q6H PRN IVP Nausea & Vomiting 09/17/17 21:15 10/17/17 21:14 Ondansetron HCl (Zofran) 4 mg Q6H PRN ORAL Nausea & Vomiting 09/17/17 21:15 10/17/17 21:14 Polyethylene Glycol (Miralax) 17 gm DAILYPRN PRN ORAL Constipation 09/17/17 21:15 10/17/17 21:14 Promethazine HCl/ Codeine (Phenergan with Codeine) 5 ml Q4H PRN ORAL For Cough 09/17/17 21:15 10/17/17 21:14 Temazepam (Restoril) 15 mg HSPRN PRN ORAL Insomnia 09/17/17 21:15 09/24/17 21:14 Vancomycin HCl (Vanco rx to dose) 1 ea DAILY PRN MISC per rx protocol 09/19/17 10:30 10/19/17 10:29 Vancomycin/Sodium Chloride 250 ml @ 166.667 mls/hr Q12HR@0200,1400 IVPB 09/19/17 14:00 09/24/17 13:59 09/20/17 15:13 ALMA LINDO Sep 20, 2017 17:08
[2017-09-20 20:00] VITALS: BP 105/65
[2017-09-21] VITALS: BP 110/70
[2017-09-21] MEDS: Vancomycin 750mg/NS 250ml IVPB SCH ×2 (03:05→15:10)
[2017-09-21 04:27] VITALS: BP 127/68
[2017-09-21 07:26] LABS: BASOPHILS % (AUTO) 0.7 % (0.0-2.0); EOSINOPHILS % (AUTO) 3.1 % (0.0-3.0); HEMATOCRIT 28.9 % (42.0-52.0); HEMOGLOBIN 8.8 G/DL (14.2-18.0); LYMPHOCYTES % (AUTO) 14.8 % (20.0-45.0); MEAN CORPUSCULAR VOLUME 82 FL (80-99); MONOCYTES % (AUTO) 12.5 % (1.0-10.0); NEUTROPHILS % (AUTO) 68.8 % (45.0-75.0); PLATELET COUNT 179 K/UL (150-450); RED BLOOD COUNT 3.52 M/UL (4.70-6.10); RED CELL DISTRIBUTION WIDTH 16.7 % (11.6-14.8)
[2017-09-21 07:51] LABS: ANION GAP 6 mmol/L (5-15); BLOOD UREA NITROGEN 23 mg/dL (7-18); CALCIUM 8.7 MG/DL (8.5-10.1); CARBON DIOXIDE 27 MMOL/L (21-32); CHLORIDE 111 MMOL/L (98-107); CREATININE 0.8 MG/DL (0.55-1.30); POTASSIUM 4.4 MMOL/L (3.5-5.1); SODIUM 144 MMOL/L (136-145)
[2017-09-21 08:15] VITALS: BP 104/71
[2017-09-21] MEDS: Cefepime HCl 2 GM in D5W 110 ML IV SCH (09:11)
[2017-09-21] MEDS: Memantine 5 MG TAB ORAL SCH (09:11)
[2017-09-21] MEDS: Amiodarone 200mg tab GT SCH (09:11)
[2017-09-21] MEDS: Heparin 5000 units/ml inj SUBQ SCH (09:14)
[2017-09-21 11:54] VITALS: BP 94/60
--- NOTE | 2017-09-21 12:25 | Infectious Diseases Prog Note ---
Assessment/Plan Assessment/Plan A; Cellulitis of R arm Dementia Anemia Gastrostomy status Positive blood culture likely contamination P; Continue Vancomycin & Cefepime will fu venous duplex of arms Subjective ROS Limited/Unobtainable: Yes Allergies: Coded Allergies: No Known Allergies (Unverified , 12/05/15) Objective Vital Signs Last 24 Hour Vital Signs Date Time Temp Pulse Resp B/P (MAP) Pulse Ox O2 Delivery O2 Flow Rate FiO2 09/21/17 11:54 97.1 75 21 94/60 97 Nasal Cannula 2.0 09/21/17 08:15 97.6 82 18 104/71 95 Nasal Cannula 2.0 09/21/17 04:27 97.5 65 17 127/68 95 09/21/17 00:00 Room Air 09/21/17 00:00 97.6 68 18 110/70 97 09/20/17 20:28 96 Nasal Cannula 2.0 28 09/20/17 20:28 Nasal Cannula 2.0 28 09/20/17 20:00 Room Air 09/20/17 20:00 97.4 65 17 105/65 98 09/20/17 16:00 97.4 69 18 100/70 97 Height (Feet): 6 Height (Inches): 0.00 Weight (Pounds): 132 General Appearance: no acute distress HEENT: mucous membranes moist Respiratory/Chest: lungs clear Cardiovascular: normal rate Abdomen: soft, non tender, other - GT feeding Extremities: other - edema of right arm, contracted Skin: other - rochelle erythema rightarm Neurologic/Psychiatric: unresponsiveness Laboratory Tests Test 09/21/17 01:10 09/21/17 06:40 Vancomycin Level Trough 13.6 ug/mL (5.0-12.0) H White Blood Count 6.0 K/UL (4.8-10.8) Red Blood Count 3.52 M/UL (4.70-6.10) L Hemoglobin 8.8 G/DL (14.2-18.0) L Hematocrit 28.9 % (42.0-52.0) L Mean Corpuscular Volume 82 FL (80-99) Mean Corpuscular Hemoglobin 25.0 PG (27.0-31.0) L Mean Corpuscular Hemoglobin Concent 30.4 G/DL (32.0-36.0) L Red Cell Distribution Width 16.7 % (11.6-14.8) H Platelet Count 179 K/UL (150-450) Mean Platelet Volume 10.8 FL (6.5-10.1) H Neutrophils (%) (Auto) 68.8 % (45.0-75.0) Lymphocytes (%) (Auto) 14.8 % (20.0-45.0) L Monocytes (%) (Auto) 12.5 % (1.0-10.0) H Eosinophils (%) (Auto) 3.1 % (0.0-3.0) H Basophils (%) (Auto) 0.7 % (0.0-2.0) Sodium Level 144 MMOL/L (136-145) Potassium Level 4.4 MMOL/L (3.5-5.1) Chloride Level 111 MMOL/L (98-107) H Carbon Dioxide Level 27 MMOL/L (21-32) Anion Gap 6 mmol/L (5-15) Blood Urea Nitrogen 23 mg/dL (7-18) H Creatinine 0.8 MG/DL (0.55-1.30) Estimat Glomerular Filtration Rate > 60 mL/min (>60) Glucose Level 82 MG/DL (74-106) Calcium Level 8.7 MG/DL (8.5-10.1) Current Medications Medications (Trade) Dose Ordered Sig/Gloria Route PRN Reason Start Time Stop Time Status Last Admin Dose Admin Acetaminophen (Tylenol) 650 mg Q4H PRN ORAL fever 09/17/17 21:15 10/17/17 21:14 Albuterol/ Ipratropium (Albuterol/ Ipratropium) 3 ml Q4H PRN HHN Shortness of Breath 09/17/17 21:15 09/22/17 21:14 Amiodarone HCl (Cordarone) 200 mg BID GT 09/18/17 09:00 10/18/17 08:59 09/21/17 09:11 Cefepime HCl 2 gm/ Dextrose 110 ml @ 220 mls/hr EVERY 12 HOURS IV 09/18/17 09:00 09/25/17 08:59 09/21/17 09:11 Clotrimazole (Lotrimin) 1 applic EVERY 12 HOURS TOPIC 09/18/17 21:00 10/18/17 20:59 09/21/17 09:11 Dextrose (Dextrose 50%) STAT PRN IV Hypoglycemia 09/17/17 21:15 10/17/17 21:14 Heparin Sodium (Porcine) (Heparin 5000 units/ml) 5,000 units EVERY 12 HOURS SUBQ 09/18/17 09:00 10/18/17 08:59 09/21/17 09:14 Lorazepam (Ativan) 1 mg Q6H PRN ORAL For Anxiety 09/17/17 21:15 09/24/17 21:14 Memantine (Namenda) 5 mg BID ORAL 09/20/17 09:00 10/20/17 08:59 09/21/17 09:11 Morphine Sulfate (Morphine Sulfate) 2 mg Q4H PRN IVP Moderate Pain (Pain Scale 4-6) 09/17/17 21:15 09/24/17 21:14 Nitroglycerin (Ntg) 0.4 mg Every 5 Minutes PRN SL Prn Chest Pain 09/17/17 21:15 10/17/17 21:14 Ondansetron HCl (Zofran) 4 mg Q6H PRN IVP Nausea & Vomiting 09/17/17 21:15 10/17/17 21:14 Ondansetron HCl (Zofran) 4 mg Q6H PRN ORAL Nausea & Vomiting 09/17/17 21:15 10/17/17 21:14 Polyethylene Glycol (Miralax) 17 gm DAILYPRN PRN ORAL Constipation 09/17/17 21:15 10/17/17 21:14 Promethazine HCl/ Codeine (Phenergan with Codeine) 5 ml Q4H PRN ORAL For Cough 09/17/17 21:15 10/17/17 21:14 Temazepam (Restoril) 15 mg HSPRN PRN ORAL Insomnia 09/17/17 21:15 09/24/17 21:14 Vancomycin HCl (Vanco rx to dose) 1 ea DAILY PRN MISC per rx protocol 09/19/17 10:30 10/19/17 10:29 Vancomycin/Sodium Chloride 250 ml @ 166.667 mls/hr Q12HR@0200,1400 IVPB 09/19/17 14:00 09/24/17 13:59 09/21/17 03:05 MATY ROJAS Sep 21, 2017 12:25
--- NOTE | 2017-09-21 12:30 | Progress Note ---
DATE: 09/21/2017 SUBJECTIVE: This is a 66-year-old patient with cellulitis. He is confused, disorganized, mood labile. He has got no logical plan for his own self care. He has feelings of helplessness, hopelessness, low energy, poor appetite, and lost of interest in activity. That is why, he does require inpatient treatment at this time. . He was treated with psychotropic medications to stabilize his mood. Cristine Barker M.D. DR: NICHOLAS JOB#: [id number] CC:
--- NOTE | 2017-09-21 13:37 | General Progress Note ---
Assessment/Plan Problem List: (1) Malnutrition ICD Codes: E46 - Unspecified protein-calorie malnutrition SNOMED: 46011622 (2) UTI (urinary tract infection) ICD Codes: N39.0 - Urinary tract infection, site not specified SNOMED: 36253320 (3) MAR (acute kidney injury) ICD Codes: N17.9 - Acute kidney failure, unspecified SNOMED: 05758298 (4) Encephalopathy ICD Codes: G93.40 - Encephalopathy, unspecified SNOMED: 83636719, 558537280 (5) Alzheimer's dementia ICD Codes: G30.9 - Alzheimer's disease, unspecified SNOMED: 01512307 (6) Cellulitis of right elbow ICD Codes: L03.113 - Cellulitis of right upper limb SNOMED: 602156146 (7) Anemia ICD Codes: D64.9 - Anemia, unspecified SNOMED: 262734346 (8) HTN (hypertension) ICD Codes: I10 - Essential (primary) hypertension SNOMED: 47298252 Status: stable, progressing, tolerating diet Assessment/Plan otpt diet wound care abx dc plan Subjective Constitutional: Reports: weakness Allergies: Coded Allergies: No Known Allergies (Unverified , 12/05/15) All Systems: reviewed and negative except above Subjective o2nc sleepy Objective Last 24 Hour Vital Signs Date Time Temp Pulse Resp B/P (MAP) Pulse Ox O2 Delivery O2 Flow Rate FiO2 09/21/17 11:54 97.1 75 21 94/60 97 Nasal Cannula 2.0 09/21/17 08:15 97.6 82 18 104/71 95 Nasal Cannula 2.0 09/21/17 04:27 97.5 65 17 127/68 95 09/21/17 00:00 Room Air 09/21/17 00:00 97.6 68 18 110/70 97 09/20/17 20:28 96 Nasal Cannula 2.0 28 09/20/17 20:28 Nasal Cannula 2.0 28 09/20/17 20:00 Room Air 09/20/17 20:00 97.4 65 17 105/65 98 09/20/17 16:00 97.4 69 18 100/70 97 Intake and Output 09/20/17 09/21/17 19:00 07:00 Intake Total 1148.334 ml 1116.667 ml Output Total 200 ml Balance 1148.334 ml 916.667 ml Free Water 120 ml 60 ml IV Total 443.334 ml 276.667 ml Tube Feeding 585 ml 780 ml Output Urine Total 200 ml # Voids 5 1 Laboratory Tests 09/21/17 01:10: Vancomycin Level Trough 13.6H 09/21/17 06:40: White Blood Count 6.0, Red Blood Count 3.52L, Hemoglobin 8.8L, Hematocrit 28.9L , Mean Corpuscular Volume 82, Mean Corpuscular Hemoglobin 25.0L, Mean Corpuscular Hemoglobin Concent 30.4L, Red Cell Distribution Width 16.7H, Platelet Count 179, Mean Platelet Volume 10.8H, Neutrophils (%) (Auto) 68.8, Lymphocytes (%) (Auto) 14.8L, Monocytes (%) (Auto) 12.5H, Eosinophils (%) (Auto ) 3.1H, Basophils (%) (Auto) 0.7, Sodium Level 144, Potassium Level 4.4, Chloride Level 111H, Carbon Dioxide Level 27, Anion Gap 6, Blood Urea Nitrogen 23H, Creatinine 0.8, Estimat Glomerular Filtration Rate > 60, Glucose Level 82, Calcium Level 8.7 Height (Feet): 6 Height (Inches): 0.00 Weight (Pounds): 132 General Appearance: lethargic EENT: normal ENT inspection Neck: normal alignment Cardiovascular: normal peripheral pulses, normal rate, regular rhythm Respiratory/Chest: chest wall non-tender, lungs clear, normal breath sounds Abdomen: normal bowel sounds, non tender, soft Extremities: normal inspection Edema: no edema noted Arm (L), no edema noted Arm (R), no edema noted Leg (L), no edema noted Leg (R), no edema noted Pedal (L), no edema noted Pedal (R), no edema noted Generalized Neurologic: motor weakness Skin: normal pigmentation, warm/dry ALONDRA SINGH Sep 21, 2017 13:37
--- NOTE | 2017-09-21 14:59 | Neurology Progress Note ---
Interim History Interim History ROS Limited/Unobtainable: Yes Objective Physical Exam Last Vital Signs Date Time Temp Pulse Resp B/P (MAP) Pulse Ox O2 Delivery O2 Flow Rate FiO2 09/21/17 11:54 97.1 75 21 94/60 97 Nasal Cannula 2.0 09/20/17 20:28 28 Laboratory Tests Test 09/21/17 01:10 09/21/17 06:40 Vancomycin Level Trough 13.6 ug/mL (5.0-12.0) H White Blood Count 6.0 K/UL (4.8-10.8) Red Blood Count 3.52 M/UL (4.70-6.10) L Hemoglobin 8.8 G/DL (14.2-18.0) L Hematocrit 28.9 % (42.0-52.0) L Mean Corpuscular Volume 82 FL (80-99) Mean Corpuscular Hemoglobin 25.0 PG (27.0-31.0) L Mean Corpuscular Hemoglobin Concent 30.4 G/DL (32.0-36.0) L Red Cell Distribution Width 16.7 % (11.6-14.8) H Platelet Count 179 K/UL (150-450) Mean Platelet Volume 10.8 FL (6.5-10.1) H Neutrophils (%) (Auto) 68.8 % (45.0-75.0) Lymphocytes (%) (Auto) 14.8 % (20.0-45.0) L Monocytes (%) (Auto) 12.5 % (1.0-10.0) H Eosinophils (%) (Auto) 3.1 % (0.0-3.0) H Basophils (%) (Auto) 0.7 % (0.0-2.0) Sodium Level 144 MMOL/L (136-145) Potassium Level 4.4 MMOL/L (3.5-5.1) Chloride Level 111 MMOL/L (98-107) H Carbon Dioxide Level 27 MMOL/L (21-32) Anion Gap 6 mmol/L (5-15) Blood Urea Nitrogen 23 mg/dL (7-18) H Creatinine 0.8 MG/DL (0.55-1.30) Estimat Glomerular Filtration Rate > 60 mL/min (>60) Glucose Level 82 MG/DL (74-106) Calcium Level 8.7 MG/DL (8.5-10.1) Impression/Recommendations Status: stable, progressing, tolerating diet Recommendations #[id number] YESICA COTTON Sep 21, 2017 14:59
[2017-09-21 16:04] VITALS: BP 105/65
[2017-09-21] MEDS ORDERED: CEPHALEXIN500 MG ORAL (16:29)
[2017-09-21] MEDS ORDERED: VIBRAMYCIN100 MG ORAL (16:30)
[2017-09-21] MEDS ORDERED: NAMENDA5 MG ORAL (16:35)
[2017-09-21] MEDS ORDERED: AMIODARONE HCL400 M1 ORAL (16:36)
[2017-09-21] MEDS ORDERED: CEPHALEXIN500 M1 ORAL (16:37)
[2017-09-21] MEDS ORDERED: CLOTRIMAZOLE15 GM TOPIC (16:38)
[2017-09-21] MEDS ORDERED: Tubing IV Secondary IV ONE (17:12)
[2017-09-21] MEDS ORDERED: NS 275ml ONE (17:12)
[2017-09-21] MEDS ORDERED: NS 500ML ONE (17:12)
[2017-09-21] MEDS ORDERED: D5NS 1000ml IV ONE (17:12)
--- NOTE | 2017-09-21 20:01 | Consultation ---
DATE OF CONSULTATION: 09/21/2017 NEUROLOGICAL CONSULTATION CONSULTING PHYSICIAN: Margarito Gil M.D. REQUESTING PHYSICIAN: Johan Rangel D.O. HISTORY OF PRESENT ILLNESS: This is a 66-year-old man seen in neurological consultation to evaluate the progressive changes in mental status. The patient has a preexistent evidence of dementia, chronic schizophrenia, and the last two to three years admission to this hospital described him as being nonverbal. He was brought with the evidence of progressive infection in his right leg. His vital signs on admission were stable. He had evidence of cellulitis of right upper extremity for which he was started on IV fluids and antibiotics. His chest x-ray revealed no significant or acute changes. Venous duplex of both lower extremities, no evidence of DVT. Laboratory work included a sedimentation rate of 100, anemia with hemoglobin 8.6, hematocrit 29.9, and low MCV and MCH. His coagulation panel 02:16 coagulopathy with PT 29.9 and INR 2.8. Toxicology panel with vancomycin 19.8. Urinalysis, 5 to 10 wbc's, 6 to 8 rbc's, and 1+ leukocyte esterase. Chemistry panel included an elevated AST of 80, albumin down to 2.2, and BUN of 37. Normal lactic acid. Following admission to present time, the patient had a course of antibiotics, which appears to be responded. There is a positive blood culture, but likely to be contamination. Currently maintained on vancomycin and cefepime. PAST MEDICAL HISTORY: The patient has a history of chronic psychiatric disorder, dementia, severe malnutrition, chronic anemia, and hypertension. There is no evidence of previous strokes or seizure disorder. He is maintained on the feeding G-tube. He has history of arthritis, hiatal hernia, history of pancreatitis, respiratory failure, recent sepsis, septic shock, and pneumonia, congestive heart failure, spastic quadriparesis, verbal unresponsiveness, chronic anemia, and cachexia. CURRENT MEDICATIONS: His treatment prior to admission included amiodarone, codeine for pain, famotidine, albuterol, lorazepam p.r.n., Primatene, nitro, Zyprexa 10 mg b.i.d., Zofran, 05:46, and warfarin. ALLERGIES: None reported. SOCIAL HISTORY: Resident of nursing facility. REVIEW OF SYSTEMS: Unable to obtain due to the patient's status. PHYSICAL EXAMINATION: GENERAL: This is a well-developed, markedly cachectic and ill-appearing man, lying in the position. VITAL SIGNS: Blood pressure 94/60 and temperature 97.1. HEENT: Normocephalic. No evidence of trauma. No postoperative signs. No otorrhea. No rhinorrhea. NECK: Very rigid in all directions. MUSCULOSKELETAL EXAMINATION: position with his knees close to his chin, arms flexed, . Peripheral pulses 1+ and symmetric. MENTAL STATUS: He is awake, but he has no eye contact, nonverbal, and does not follow any commands. CRANIAL NERVE II: Pupils both responding to light and accommodation. Extraocular movement full range. CRANIAL NERVE V: Normal corneal responses. CRANIAL NERVE VII: No facial asymmetry. CRANIAL NERVE VIII: Probably decreased hearing. CRANIAL NERVES IX THROUGH XII: Reduced gag response. Tongue is in midline. MOTOR EXAMINATION: Diffuse rigidity. The patient remained with the flexor contractures of both upper and lower extremities during examination. He was unable to open up legs or arms. Deep tendon reflexes depressed bilaterally with plantar responses. Positive Babinski bilaterally. SENSORY EXAMINATION: No response to pin stimulation. IMPRESSION: 1. Persistent position, mutism, verbal unresponsiveness what appears representing end-stage dementia. 2. Right arm cellulitis with sepsis. 3. Chronic psychiatric disorder. 4. Cachexia and malnutrition. RECOMMENDATIONS: The patient to continue with symptomatic supportive and palliative care as per attending and Infectious Disease specialist. The patient is maintained on antipsychotic treatment as per Psychiatry. I would avoid over-sedation and may use antipsychotic unless behavioral abnormalities noted. The patient is maintained on Coumadin for presumed DVT, although venous duplex of both upper extremities was negative. This will be deferred to the attending. Review of the patient's previous admissions in the last few years detected similar condition when the patient was nonverbal with "quadriparesis." Thank you for allowing me to see this interesting patient in neurological consultation. Margarito Gil M.D. DR: NEVILLE JOB#: [id number] CC:
--- NOTE | 2017-09-21 20:20 | Pulmonology Progress Note ---
Assessment/Plan Problems: (1) Cellulitis of right elbow (2) COPD (chronic obstructive pulmonary disease) (3) Schizophrenia (4) Cachexia (5) Alzheimer's dementia Assessment/Plan looks comfortable improving check cultures respiratory treatment dvrt porphylaxis dc planning FOR TODAY Subjective ROS Limited/Unobtainable: No Constitutional: Reports: no symptoms HEENT: Repors: no symptoms Respiratory: Reports: no symptoms Allergies: Coded Allergies: No Known Allergies (Unverified , 12/05/15) Objective Last 24 Hour Vital Signs Date Time Temp Pulse Resp B/P (MAP) Pulse Ox O2 Delivery O2 Flow Rate FiO2 09/21/17 16:04 97.6 80 19 105/65 99 Nasal Cannula 2.0 09/21/17 11:54 97.1 75 21 94/60 97 Nasal Cannula 2.0 09/21/17 08:15 97.6 82 18 104/71 95 Nasal Cannula 2.0 09/21/17 04:27 97.5 65 17 127/68 95 09/21/17 00:00 Room Air 09/21/17 00:00 97.6 68 18 110/70 97 09/20/17 20:28 96 Nasal Cannula 2.0 28 09/20/17 20:28 Nasal Cannula 2.0 28 Intake and Output 09/20/17 09/21/17 19:00 07:00 Intake Total 1148.334 ml 1116.667 ml Output Total 200 ml Balance 1148.334 ml 916.667 ml Free Water 120 ml 60 ml IV Total 443.334 ml 276.667 ml Tube Feeding 585 ml 780 ml Output Urine Total 200 ml # Voids 5 1 Objective General Appearance: WD/WN, no apparent distress Lines, tubes and drains: peripheral HEENT: normocephalic, atraumatic Neck: non-tender, normal alignment Respiratory/Chest: chest wall non-tender, lungs clear Cardiovascular/Chest: regular rhythm Abdomen: normal bowel sounds, non tender Extremities: normal range of motion, non-tender Skin Exam: normal pigmentation Neurologic: no motor/sensory deficits Laboratory Tests 09/21/17 01:10: Vancomycin Level Trough 13.6H 09/21/17 06:40: White Blood Count 6.0, Red Blood Count 3.52L, Hemoglobin 8.8L, Hematocrit 28.9L , Mean Corpuscular Volume 82, Mean Corpuscular Hemoglobin 25.0L, Mean Corpuscular Hemoglobin Concent 30.4L, Red Cell Distribution Width 16.7H, Platelet Count 179, Mean Platelet Volume 10.8H, Neutrophils (%) (Auto) 68.8, Lymphocytes (%) (Auto) 14.8L, Monocytes (%) (Auto) 12.5H, Eosinophils (%) (Auto ) 3.1H, Basophils (%) (Auto) 0.7, Sodium Level 144, Potassium Level 4.4, Chloride Level 111H, Carbon Dioxide Level 27, Anion Gap 6, Blood Urea Nitrogen 23H, Creatinine 0.8, Estimat Glomerular Filtration Rate > 60, Glucose Level 82, Calcium Level 8.7 ALMA LINDO Sep 21, 2017 20:20
[2017-09-22] MEDS ORDERED: Cephalexin 500mg cap ORAL SCH (06:00)
--- NOTE | 2017-09-22 15:22 | Discharge Summary ---
Discharge Summary Hospital Course Date of Admission Sep 17, 2017 at 20:42 Date of Discharge Sep 21, 2017 at 17:13 Admitting Diagnosis CELLULITIS HPI Bret Boyce is a 66 year old male who was admitted on Sep 17, 2017 at 20:42 for Cellulitis Hospital Course [id number] Discharge Discharge Disposition Patient was discharged to SNF Discharge Diagnoses: Wendi Sams NP Sep 22, 2017 15:22
--- NOTE | 2017-09-23 03:30 | Discharge Summary 2 SIG ---
DATE OF ADMISSION: 09/17/2017 DATE OF DISCHARGE: 09/21/2017 CONSULTANTS: 1. Misty Rojas M.D. 2. Margarito Gil M.D. 3. Cristine Barker M.D. 4. Chad Croft M.D. BRIEF HOSPITAL COURSE: The patient is a 66-year-old male from [facility], presented with right elbow swelling and redness. He has history of chronic obstructive pulmonary disease and is on oxygen two liters nasal cannula, history of dementia, prior leg DVT, and dysphagia on percutaneous endoscopic gastrostomy, reportedly was being treated for cellulitis at the skilled nursing, however, it was not getting better. He was also noted to be hypoxic by EMS with O2 saturation 89%. On evaluation at ED, chest x-ray showed possible left-sided infiltrate. Lactic acid was 1. Urine WBC 5 to 10, urine RBC 60 to 80 with +1 leukocyte esterase. He had low-grade fever of 100.1 degrees. He was admitted for cellulitis of the right elbow and was started initially on cefepime and vancomycin. He was continued on oxygen support and was given respiratory treatments. He came in with right heel DTI and left trochanter DTI pressure ulcer. He was given wound care. The patient was confused and disorganized, was diagnosed with paranoid schizophrenia. He was given psychotropic medications consisting of Namenda 5 mg b.i.d. He underwent neurologic evaluation. The patient had progressive change in mental status, verbal unresponsiveness, and mutism, probably representing end-stage dementia. He had venous duplex of lower extremity that revealed a recanalized chronic thrombus in the left leg. Duplex study on upper extremity revealed an acute thrombus in one of the paired brachial veins extending from mid to distal level. Blood cultures were showing growth of diphtheroids and was cleared for discharge to continue Keflex and doxycycline at skilled nursing. FINAL DIAGNOSES: 1. Cellulitis of right elbow. 2. Acute deep vein thrombosis of the right arm. 3. Schizophrenia. 4. Alzheimer's dementia. 5. Chronic obstructive pulmonary disease. 6. Malnutrition. 7. Paranoid schizophrenia. 8. Positive blood culture likely contamination. 9. Right heel and left trochanter deep tissue injury pressure ulcer, present on admission. DISPOSITION: The patient was discharged to [facility]. DISCHARGE MEDICATIONS: Refer to medication list. Johan Rangel D.O. I have been assigned to dictate discharge summary on this account and I was not involved in the patient's management. Wendi Sams N.P. DR: ARIAS JOB#: [id number] CC: OSCAR
== END 2017-09-21 17:13 | DRG 383 ==
LOC: EDBD 20:15 → EMR 20:20 → 4E 20:42 → EDBEDREQ 21:41
DX: L03.113 Cellulitis of right upper limb (principal); E43 Unspecified severe protein-calorie malnutrition; L89.229 Pressure ulcer of left hip, unspecified stage; N17.9 Acute kidney failure, unspecified; G93.40 Encephalopathy, unspecified; I82.621 Acute embolism and thrombosis of deep veins of right upper extremity; G30.9 Alzheimer's disease, unspecified; J44.9 Chronic obstructive pulmonary disease, unspecified; F02.80 Dementia in other diseases classified elsewhere, unspecified severity, without behavioral disturbance, psychotic disturbance, mood disturbance, and anxiety; L89.619 Pressure ulcer of right heel, unspecified stage; Z93.1 Gastrostomy status; R13.10 Dysphagia, unspecified; F20.0 Paranoid schizophrenia; R09.02 Hypoxemia; Z74.01 Bed confinement status; I10 Essential (primary) hypertension; Z68.1 Body mass index [BMI] 19.9 or less, adult; D64.9 Anemia, unspecified; N39.0 Urinary tract infection, site not specified; I82.513 Chronic embolism and thrombosis of femoral vein, bilateral; Z79.01 Long term (current) use of anticoagulants
CPT/HCPCS: 36415; 71045; 80048; 80053; 80202; 81003; 82378; 82550; 82607; 82746; 83540; 83550; 83605; 83615; 84484; 85007; 85025; 85044; 85060; 85610; 85651; 85730; 87040; 87081; 93005; 93970; 94760; 99285

== ENCOUNTER 2017-10-03 23:07 | Inpatient (IN) | payer MEDICAID ==
[~2017-10-03] VITALS: Ht 182.9 cm; Wt 66.2 kg
[~2017-10-03 23:07] MED LIST changes: +AMIODARONE HCL400 M1 GT; +AMIODARONE HCL400 M1 ORAL; +ASCORBIC ACID250 M1 GT; +CEPHALEXIN500 M1 ORAL; +CEPHALEXIN500 MG ORAL; +CLOTRIMAZOLE15 GM TOPIC; +FOLIC ACID1 MG GT; +MULTIVITAMINS1 EAC2 GT; +NAMENDA5 MG ORAL; +VIBRAMYCIN100 MG ORAL; +ZINC SULFATE220 M1 GT; +ZOFRAN4 M3 GT
[2017-10-03] MEDS ORDERED: Vancomycin 1 GM in NS 275 ML IV ONE (23:15)
[2017-10-03] MEDS ORDERED: Cefepime HCl 2 GM in NS 110 ML IV SCH (23:15)
[2017-10-03] MEDS ORDERED: Cefepime 2gm ONE (23:18)
[2017-10-03 23:20] VITALS: BP 120/66
[2017-10-03 23:36] LABS: HEMATOCRIT 28.9 % (42.0-52.0); HEMOGLOBIN 8.7 G/DL (14.2-18.0); MEAN CORPUSCULAR VOLUME 80 FL (80-99); PLATELET COUNT 212 K/UL (150-450); RED CELL DISTRIBUTION WIDTH 17.1 % (11.6-14.8)
[2017-10-03 23:45] LABS: ANION GAP 6 mmol/L (5-15); BLOOD UREA NITROGEN 23 mg/dL (7-18); CARBON DIOXIDE 28 MMOL/L (21-32); CHLORIDE 110 MMOL/L (98-107); CREATININE 0.8 MG/DL (0.55-1.30); POTASSIUM 4.4 MMOL/L (3.5-5.1); SODIUM 144 MMOL/L (136-145)
[2017-10-03 23:55] LABS: ALANINE AMINOTRANSFERASE 40 U/L (12-78); ALBUMIN 1.8 G/DL (3.4-5.0); ALBUMIN/GLOBULIN RATIO 0.4 (1.0-2.7); ALKALINE PHOSPHATASE 73 U/L (46-116); ASPARTATE AMINO TRANSFERASE 40 U/L (15-37); BILIRUBIN,TOTAL 0.3 MG/DL (0.2-1.0); CREATINE KINASE 137 U/L (26-308)
[2017-10-04] VITALS (8 sets, daily range): BP systolic 94–106; BP diastolic 56–79
[2017-10-04 00:01] LABS: INR 4.4 (0.9-1.1)
[2017-10-04] MEDS ORDERED: Lidocaine HCl 2% Jelly 5ml Tube TOPIC ONE (00:30)
[2017-10-04] MEDS ORDERED: Vancomycin 1gm inj IVPB ONE (00:46)
[2017-10-04] MEDS ORDERED: NS 275 ML ONE (00:47)
--- NOTE | 2017-10-04 01:30 | Emergency Room Report ---
History of Present Illness General Chief Complaint: Fever Source: EMS Present Illness HPI Patient sent in for possible pneumonia. His been coughing. The patient has a history of pneumonia in the past. He's unable to provide any history. He received tylenol for a fever at 2100. The patient is on Coumadin. In the past he was admitted for elevated troponin. He was hospitalized for elbow cellulitis earlier this month. There are his discharge dx: 1. Cellulitis of right elbow. 2. Acute deep vein thrombosis of the right arm. 3. Schizophrenia. 4. Alzheimer's dementia. 5. Chronic obstructive pulmonary disease. 6. Malnutrition. 7. Paranoid schizophrenia. 8. Positive blood culture likely contamination. 9. Right heel and left trochanter deep tissue injury pressure ulcer, present on admission. He was hospitalized in June 2017 for pneumonia. These are his discharge dx: 1. Dyspnea, secondary to pneumonia. 2. Pneumonia. 3. Elevated troponin, doubt acute coronary syndrome. 4. Schizophrenia. 5. Chronic obstructive pulmonary disease. 6. Alzheimer's dementia. 7. Dysphagia, feeding by gastrostomy tube. 8. Anemia of iron deficiency. 9. Leukopenia, likely related to hepatitis C. 10. Thrombocytopenia, multifactorial. 11. Dehydration. 12. Acute renal failure. 13. Coronary artery disease. 14. Proteinuria. 15. Hematuria. 16. Pneumonia. 17. Hypomagnesemia. Allergies: Coded Allergies: No Known Allergies (Unverified , 12/05/15) Patient History Limited by: medical condition Past Medical History: see triage record, old chart reviewed Social History Narrative SNF Reviewed Nursing Documentation: PMH: Agreed, PSxH: Agreed Nursing Documentation-PMH Hx Cardiac Problems: Yes - A FIB Hx Hypertension: Yes - ANEMIA Hx COPD: Yes Hx Cancer: No Hx Gastrointestinal Problems: Yes - Dysphagia Hx Dialysis: No - CKD History Of Psychiatric Problem: Yes - SCHIZO,ALZHEIMERS Hx Neurological Problems: Yes Hx Dementia: Yes Hx Alzheimer's Disease: Yes Review of Systems All Other Systems: limited Physical Exam Vital Signs Date Time Temp Pulse Resp B/P (MAP) Pulse Ox O2 Delivery O2 Flow Rate FiO2 10/03/17 23:11 99.7 93 28 120/66 94 Room Air 10/04/17 01:07 2.0 Sp02 EP Interpretation: reviewed, abnormal - low on O2 as interpreted by me General Appearance: no apparent distress, alert, thin, Chronically Ill Head: normocephalic Eyes: bilateral eye normal inspection, bilateral eye PERRL ENT: moist mucus membranes Neck: supple Respiratory: rhonchi Cardiovascular #1: regular rate, rhythm Cardiovascular #2: 2+ radial (R) Gastrointestinal: normal inspection, normal bowel sounds, non tender, no mass, non-distended, scaphoid Genitourinary: normal inspection Musculoskeletal: back normal, other - extensor contractures Neurologic: responsive, motor weakness, other - ebulic Psychiatric: depressed affect Skin: warm/dry, other - decubiti Procedures Additional Procedure Procedure Narrative 14 today was passed by me without difficulty. Medical Decision Making Diagnostic Impression: Primary Impression: HCAP (healthcare-associated pneumonia) Additional Impression: Anticoagulation excessive ER Course Patient presents with possible pneumonia. DDx: sepsis, pneumonia, bronchitis, UTI amongst others. Complex patient unable to give history with multiple co- morbidities. Evaluation with EKG, CXR, labs including BC and lactate. Treatment with IV hydration and antibiotics. EKG without injury CXR with infiltrates, more than prior. Elevated WBC with normal lactate and troponin. RN unable to pass vidal and caused some urethral trauma. Vidal passed by ERMD. Urine appeared turbid, but UA clear. Improved with treatment. Admit med Dr. Singh. Laboratory Tests Test 10/03/17 23:10 10/04/17 01:15 10/04/17 20:40 10/05/17 06:15 White Blood Count 15.0 K/UL (4.8-10.8) H 7.3 K/UL (4.8-10.8) # Red Blood Count 3.60 M/UL (4.70-6.10) L 3.23 M/UL (4.70-6.10) L Hemoglobin 8.7 G/DL (14.2-18.0) L 7.9 G/DL (14.2-18.0) L Hematocrit 28.9 % (42.0-52.0) L 26.3 % (42.0-52.0) L Mean Corpuscular Volume 80 FL (80-99) 81 FL (80-99) Mean Corpuscular Hemoglobin 24.3 PG (27.0-31.0) L 24.4 PG (27.0-31.0) L Mean Corpuscular Hemoglobin Concent 30.2 G/DL (32.0-36.0) L 30.0 G/DL (32.0-36.0) L Red Cell Distribution Width 17.1 % (11.6-14.8) H 17.5 % (11.6-14.8) H Platelet Count 212 K/UL (150-450) 194 K/UL (150-450) Mean Platelet Volume 9.7 FL (6.5-10.1) 9.1 FL (6.5-10.1) Neutrophils (%) (Auto) % (45.0-75.0) % (45.0-75.0) Lymphocytes (%) (Auto) % (20.0-45.0) % (20.0-45.0) Monocytes (%) (Auto) % (1.0-10.0) % (1.0-10.0) Eosinophils (%) (Auto) % (0.0-3.0) % (0.0-3.0) Basophils (%) (Auto) % (0.0-2.0) % (0.0-2.0) Prothrombin Time 46.9 SEC (9.30-11.50) H Prothrombin Time INR 4.4 (0.9-1.1) H PTT 45 SEC (23-33) H Sodium Level 144 MMOL/L (136-145) 144 MMOL/L (136-145) Potassium Level 4.4 MMOL/L (3.5-5.1) 4.0 MMOL/L (3.5-5.1) Chloride Level 110 MMOL/L (98-107) H 111 MMOL/L (98-107) H Carbon Dioxide Level 28 MMOL/L (21-32) 27 MMOL/L (21-32) Anion Gap 6 mmol/L (5-15) 7 mmol/L (5-15) Blood Urea Nitrogen 23 mg/dL (7-18) H 19 mg/dL (7-18) H Creatinine 0.8 MG/DL (0.55-1.30) 0.8 MG/DL (0.55-1.30) Estimate Glomerular Filtration Rate > 60 mL/min (>60) > 60 mL/min (>60) Glucose Level 128 MG/DL (74-106) H 100 MG/DL (74-106) Lactic Acid Level 1.40 mmol/L (0.66-2.22) Calcium Level 9.0 MG/DL (8.5-10.1) 9.0 MG/DL (8.5-10.1) Total Bilirubin 0.3 MG/DL (0.2-1.0) Aspartate Amino Transferase (AST) 40 U/L (15-37) H Alanine Aminotransferase (ALT) 40 U/L (12-78) Alkaline Phosphatase 73 U/L (46-116) Total Creatine Kinase 137 U/L (26-308) Troponin I 0.008 ng/mL (0.000-0.056) Pro-B-Type Natriuretic Peptide 190 pg/mL (0-125) H Total Protein 6.7 G/DL (6.4-8.2) Albumin 1.8 G/DL (3.4-5.0) L 1.7 G/DL (3.4-5.0) L Globulin 4.9 g/dL Albumin/Globulin Ratio 0.4 (1.0-2.7) L Urine Color Yellow Urine Appearance Clear Urine pH 7 (4.5-8.0) Urine Specific [place] 1.010 (1.005-1.035) Urine Protein Negative (NEGATIVE) Urine Glucose (UA) Negative (NEGATIVE) Urine Ketones Negative (NEGATIVE) Urine Occult Blood Negative (NEGATIVE) Urine Nitrite Negative (NEGATIVE) Urine Bilirubin Negative (NEGATIVE) Urine Urobilinogen Normal MG/DL (0.0-1.0) Urine Leukocyte Esterase Negative (NEGATIVE) Transferrin Pending Soluble Transferrin Receptor Pending Ferritin 175 NG/ML (8-388) Differential Total Cells Counted 100 Neutrophils % (Manual) 79 % (45-75) H Lymphocytes % (Manual) 12 % (20-45) L Monocytes % (Manual) 7 % (1-10) Eosinophils % (Manual) 1 % (0-3) Basophils % (Manual) 1 % (0-2) Band Neutrophils 0 % (0-8) Platelet Estimate Adequate Platelet Morphology Normal Hypochromasia 3+ Anisocytosis 1+ Phosphorus Level 3.0 MG/DL (2.5-4.9) Test 10/05/17 10:40 10/05/17 18:23 Vancomycin Level Trough 20.6 ug/mL (5.0-12.0) H Stool Occult Blood Pending Microbiology Date/Time Source Procedure Growth Status 10/03/17 23:15 Nasal Nares Influenza Types A,B Antigen (GWENDOLYN) - Final Complete EKG Diagnostic Results Rate: normal Rhythm: NSR ST Segments: no acute changes Rhythm Strip Diag. Results EP Interpretation: yes Rhythm: NSR, no PVC's, no ectopy Chest X-Ray Diagnostic Results Chest X-Ray Diagnostic Results : Chest X-Ray Ordered: Yes # of Views/Limited/Complete: 1 View Indication: Other EP Interpretation: Yes Interpretation: no pneumothorax, other - L effusion and possible infiltrate , R infiltrate Impression: Other Electronically Signed by: Electronically signed by Doug José MD Status: improved Disposition: ADMITTED INPATIENT Condition: Serious Referrals: ALONDRA SINGH (PCP) Doug José M.D. Oct 04, 2017 01:30
[2017-10-04 01:44] LABS: APPEARANCE,URINE CLEAR; BILIRUBIN, URINE NEGATIVE (NEGATIVE); GLUCOSE, URINE (UA) NEGATIVE (NEGATIVE); KETONES,URINE NEGATIVE (NEGATIVE); LEUKOCYTE ESTERASE ,URINE NEGATIVE (NEGATIVE); NITRITE,URINE NEGATIVE (NEGATIVE); PH,URINE 7 (4.5-8.0); PROTEIN,URINE NEGATIVE (NEGATIVE); UROBILINOGEN,URINE NORMAL MG/DL (0.0-1.0)
[2017-10-04 01:49] LABS: COLOR,URINE YELLOW
[2017-10-04] MEDS ORDERED: Miralax 17gm pkt ORAL PRN (07:00)
[2017-10-04] MEDS ORDERED: Albuterol/Ipratropium 3ml neb HHN PRN (07:00)
--- NOTE | 2017-10-04 09:01 | Diagnostic Imaging Report ---
Indication: Shortness of breath Technique: One view of the chest Comparison: 09/17/2017 Findings: Faint patchy and hazy infiltrates are seen in the right mid and lower lung, not definitely evident previously. There is persistent marked elevation of left hemidiaphragm. Hazy opacity of the left lung base likely represents pleural fluid and possibly superimposed parenchymal consolidation. This appearance is similar to the previous study. The heart size is difficult to assess as the left heart border is obscured. Impression: Elevated left hemidiaphragm, also demonstrated previously Suspect left-sided pleural effusion and infiltrate Faint infiltrates in the right mid and lower lung, new since prior study of 09/17/2017 This agrees with the preliminary interpretation provided by the emergency room physician
[2017-10-04] MEDS: Pantoprazole Inj IV SCH (09:39)
[2017-10-04] MEDS: Amiodarone 200mg tab GT SCH ×2 (09:40→22:41)
[2017-10-04] MEDS: Piperacillin/Tazobactam 3.375 GM in NS 110 ML IVPB SCH ×2 (09:41→22:42)
[2017-10-04] MEDS: Heparin 5000 units/ml inj SUBQ SCH ×2 (09:43→22:43)
--- NOTE | 2017-10-04 13:54 | Wound Care Consultation ---
Wound Assessment Wound Assessment #1: Wound Number: 1 Wound Present on Admission: Yes New Wound: No Status Change of Wound: No Wound Location Body Site Modif: right Wound Location Body Site: trochanter Wound Type: pressure ulcer Jericho Test: Does not Jericho Pressure Ulcer Stage: Deep Tissue Injury Wound Thickness: Full Thickness Wound Length: 2.5 Wound Width: 2.0 Wound Depth: utd Percent of Wound Purple/Maroon: 100 Wound Drainage Amount: None Wound Drainage Odor: None/Absent Tissue Surrounding Wound: Intact Wound General Appearance: Reddened - purple Wound Assessment #2: Wound Number: 2 Wound Present on Admission: Yes New Wound: No Status Change of Wound: No Wound Location Body Site Modif: mid Wound Location Body Site: other - Sacrococcygeal Wound Type: pressure ulcer Jericho Test: Does not Jericho Pressure Ulcer Stage: Deep Tissue Injury Wound Thickness: Full Thickness Wound Length: 6.0 Wound Width: 6.0 Wound Depth: utd Percent of Wound Purple/Maroon: 100 Wound Drainage Amount: None Wound Drainage Odor: None/Absent Tissue Surrounding Wound: Erythemic Wound General Appearance: Reddened - purple/maroon Wound Assessment #3: Wound Number: 3 Wound Present on Admission: Yes New Wound: No Status Change of Wound: No Wound Location Body Site Modif: right Wound Location Body Site: other - lumbar back area Wound Type: pressure ulcer Jericho Test: Does not Jericho Pressure Ulcer Stage: Deep Tissue Injury Wound Thickness: Full Thickness Wound Length: 6.0 Wound Width: 6.0 Wound Depth: utd Percent of Wound Purple/Maroon: 100 Wound Drainage Amount: None Wound Drainage Odor: None/Absent Tissue Surrounding Wound: Intact Wound General Appearance: Reddened - purple/maroon Wound Assessment #4: Wound Number: 4 Wound Present on Admission: Yes New Wound: No Status Change of Wound: No Wound Location Body Site Modif: right, anterior Wound Location Body Site: thigh Wound Type: pressure ulcer Jericho Test: Does not Jericho Pressure Ulcer Stage: II - resolving open blister Wound Thickness: Partial Thickness Wound Length: 1.0 Wound Width: 1.0 Percent of Wound Cochrane/Red: 100 Wound Drainage Amount: None Wound Drainage Odor: None/Absent Tissue Surrounding Wound: Intact Wound General Appearance: Reddened Wound Assessment #5: Wound Number: 5 Wound Present on Admission: Yes New Wound: No Status Change of Wound: No Wound Location Body Site Modif: left Wound Location Body Site: buttocks Wound Type: pressure ulcer Jericho Test: Does not Jericho Pressure Ulcer Stage: Deep Tissue Injury Wound Thickness: Full Thickness Wound Length: 0.2 Wound Width: 0.2 Wound Depth: utd Percent of Wound Purple/Maroon: 100 Wound Drainage Amount: None Wound Drainage Odor: None/Absent Tissue Surrounding Wound: Erythemic Wound General Appearance: Reddened - purple/maroon Wound Assessment #6: Wound Number: 6 Wound Present on Admission: Yes New Wound: No Status Change of Wound: No Wound Location Body Site Modif: left Wound Location Body Site: iliac crest Wound Type: pressure ulcer Jericho Test: Does not Jericho Pressure Ulcer Stage: Deep Tissue Injury Wound Thickness: Full Thickness Wound Length: 0.2 Wound Width: 0.2 Wound Depth: utd Percent of Wound Purple/Maroon: 100 Wound Drainage Amount: None Wound Drainage Odor: None/Absent Tissue Surrounding Wound: Intact Wound General Appearance: Reddened - purple/maroon Wound Assessment #7: Wound Number: 7 Wound Present on Admission: Yes New Wound: No Status Change of Wound: No Wound Location Body Site Modif: left, upper Wound Location Body Site: ear Wound Type: pressure ulcer Jericho Test: Does not Jericho Pressure Ulcer Stage: Deep Tissue Injury Wound Thickness: Full Thickness Wound Length: 0.5 Wound Width: 0.5 Wound Depth: utd Percent of Wound Purple/Maroon: 100 Wound Drainage Amount: None Wound Drainage Odor: None/Absent Tissue Surrounding Wound: Intact Wound General Appearance: Reddened - purple/maroon Wound Assessment #8: Wound Number: 8 Wound Present on Admission: Yes New Wound: No Status Change of Wound: No Wound Location Body Site Modif: right Wound Location Body Site: ear Wound Type: pressure ulcer Jericho Test: Does not Jericho Pressure Ulcer Stage: III Wound Thickness: Full Thickness Wound Length: 2.0 Wound Width: 0.5 Wound Depth: less than 0.1 Percent of Wound Cochrane/Red: 100 Wound Drainage Description: Serosanguineous Wound Drainage Amount: Scant Wound Drainage Odor: None/Absent Tissue Surrounding Wound: Erythemic Wound General Appearance: Reddened, Draining Wound Assessment #9: Wound Number: 9 Wound Present on Admission: Yes New Wound: No Status Change of Wound: No Wound Location Body Site Modif: left Wound Location Body Site: knee Wound Type: pressure ulcer Jericho Test: Does not Jericho Pressure Ulcer Stage: II Wound Thickness: Partial Thickness Wound Length: 1.0 Wound Width: 0.5 Wound Depth: less than 0.1 Percent of Wound Cochrane/Red: 100 Wound Drainage Amount: None Wound Drainage Odor: None/Absent Tissue Surrounding Wound: Erythemic Wound General Appearance: Reddened Wound Assessment #10: Wound Number: 10 Wound Present on Admission: Yes New Wound: No Status Change of Wound: No Wound Location Body Site Modif: right Wound Location Body Site: temporal region Wound Type: pressure ulcer Jericho Test: Does not Jericho Pressure Ulcer Stage: II Wound Thickness: Partial Thickness Wound Length: 2.0 Wound Width: 0.2 Wound Depth: less than 0.1 Percent of Wound Cochrane/Red: 100 Wound Drainage Amount: None Wound Drainage Odor: None/Absent Tissue Surrounding Wound: Intact Wound General Appearance: Reddened, Draining Wound Assessment #11: Wound Number: 11 Wound Present on Admission: Yes New Wound: No Status Change of Wound: No Wound Location Body Site Modif: right, lateral Wound Location Body Site: metatarsal head - 5th Wound Type: pressure ulcer Jericho Test: Does not Jericho Pressure Ulcer Stage: Deep Tissue Injury Wound Thickness: Full Thickness Wound Length: 1.0 Wound Width: 1.0 Wound Depth: utd Percent of Wound Purple/Maroon: 100 Wound Drainage Amount: None Wound Drainage Odor: None/Absent Tissue Surrounding Wound: Erythemic Wound General Appearance: Reddened - purple/maroon Wound Assessment #12: Wound Number: 12 Wound Present on Admission: Yes New Wound: No Status Change of Wound: No Wound Location Body Site Modif: right, mid, lateral Wound Location Body Site: foot Wound Type: pressure ulcer Jericho Test: Does not Jericho Pressure Ulcer Stage: Deep Tissue Injury Wound Thickness: Full Thickness Wound Length: 1.0 Wound Width: 1.0 Wound Depth: utd Percent of Wound Purple/Maroon: 100 Wound Drainage Amount: None Wound Drainage Odor: None/Absent Tissue Surrounding Wound: Intact Wound General Appearance: Reddened - purple/maroon Wound Assessment #13: Wound Number: 13 Wound Present on Admission: Yes New Wound: No Status Change of Wound: No Wound Location Body Site Modif: right Wound Location Body Site: back Wound Type: pressure ulcer Jericho Test: Does not Jericho Pressure Ulcer Stage: Deep Tissue Injury - scattered Wound Thickness: Full Thickness Percent of Wound Purple/Maroon: 100 Wound Drainage Amount: None Wound Drainage Odor: None/Absent Tissue Surrounding Wound: Intact Wound General Appearance: Reddened - purple/maroon Wound Comment #1 Right trochanter DTI pressure ulcer #2 Right upper chest dry scab #3 Sacrococcygeal DTI pressure ulcer #4 Right lumbar area DTI pressure ulcer #5 Right thigh resolving stage II open blister #6 Left knee stage II pressure ulcer #7 Right temporal bone area stage II presser ulcer #8 Right lateral 5th metatarsal head DTI pressure ulcer #9 Right lateral mid foot DTI pressure ulcer #10 Right upper back scattered DTI pressure ulcer #11 Left buttock DTI pressure ulcer #12 Left iliac crest DTI pressure ulcer #13 Left ear DTI pressure ulcer due to N/C #14 Right ear stage III pressure ulcer #15 Right ear dry black scab on ear lobe Recommendation -Local wound care per protocol -Keep clean and dry -Optimize nutrition -Turn and reposition -Low air loss mattress -Offload both heels -Heel protector on both heels -Assess and f/u accordingly for any changes MADY GARCIA RN Oct 04, 2017 13:54
[2017-10-04] MEDS: Vancomycin 1 GM in D5W 275 ML IVPB SCH (14:03)
--- NOTE | 2017-10-04 16:30 | Consultation ---
DATE OF CONSULTATION: 10/04/2017 INFECTIOUS DISEASES CONSULTATION PRIMARY ATTENDING PHYSICIAN: Johan Rangel D.O. REASON FOR CONSULTATION: Pneumonia. HISTORY OF PRESENT ILLNESS: The patient is a 66-year-old white male admitted [facility] because of fever. He had a temperature of 103.7, had leukocytosis of 15,000, had cough according to the ER doctor. The patient cannot communicate. PAST MEDICAL HISTORY: Has a recent history of admission to [facility] in September 2017 with swelling of right arm, chronic DVT of legs, advanced Alzheimer dementia, anemia, history of atrial fibrillation. The patient is status post G-tube. ALLERGY: No known drug allergies. MEDICATIONS: Getting temazepam, vancomycin, amiodarone, midodrine, heparin, Protonix, Zosyn, DuoNeb inhaler, MiraLAX, and Zofran. SOCIAL HISTORY: senior living resident. Single. No other history obtainable. PHYSICAL EXAMINATION: VITAL SIGNS: Temperature 97.5, pulse 80, blood pressure 94/56, maximum temperature in the hospital was 99.7. HEAD AND NECK: Moist mucous membranes. HEART: Regular. LUNGS: Clear. ABDOMEN: Soft. G-tube feeding. EXTREMITIES: Has no edema. Has contractures especially in the lower extremities. Hardness and swelling in the right arm decreased. LABORATORY AND DIAGNOSTIC DATA: UA was negative. Chest x-ray showed elevated left hemidiaphragm, suspect left pleural effusion and infiltrate in the right mid and lower lung new since September 17, 2017. WBC 15, hemoglobin 8.7, hematocrit 28.9, platelet 212. Sodium 144, potassium 4.4, chloride 110, bicarb 28, BUN 23, creatinine 0.8. Albumin is 1.8. IMPRESSION: 1. Sepsis with fever and leukocytosis, may have an early pneumonia. 2. Anemia. 3. Decreased albumin. 4. Advanced dementia. 5. 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 RECOMMENDATION: 1. We will continue with Zosyn and vancomycin. 2. We will follow up the cultures and narrow antibiotic. At the end of my exam, I thank Dr. Johan Rangel for involving me in the care of this patient. Chad Croft M.D. DR: [place] JOB#: [id number] CC:
--- NOTE | 2017-10-04 18:15 | History and Physical Report ---
DATE OF ADMISSION: 10/03/2017 TIME SEEN: 10/04/2017 at 3 p.m. ATTENDING PHYSICIAN: Johan Rangel D.O. CONSULTANTS: 1. Misty Rojas M.D. 2. Dr. Funes. 3. Cristine Barker M.D. CHIEF COMPLAINT: Shortness of breath, altered mental status, and pneumonia. BRIEF HISTORY: This is a 66-year-old male from [facility], presented with increased altered level of consciousness and shortness of breath, diagnosed with pneumonia and sepsis and admitted to medical floor for further treatment. Currently lethargic in bed, O2 NC, calm in bed, not talking. PAST MEDICAL HISTORY: Arthritis, DVT, respiratory failure, CHF, UTI, hypertension, COPD, cachexia, and Alzheimer's. PAST SURGICAL HISTORY: G-tube. MEDICATIONS: , Restoril, vancomycin, Cordarone, heparin, pantoprazole, Zosyn, vancomycin, albuterol, and Zofran. ALLERGIES: Denies. SOCIAL HISTORY: No smoking. No alcohol. No intravenous drug use. FAMILY HISTORY: Noncontributory. REVIEW OF SYSTEMS: Unavailable. PHYSICAL EXAMINATION: GENERAL: Lethargic in bed, O2 NC, nonverbal. VITAL SIGNS: Temperature 97 degrees, pulse 80, respirations 20, and blood pressure 94/56. CARDIOVASCULAR: No murmur. LUNGS: Poor air exchange. ABDOMEN: Bowel sounds distant. EXTREMITIES: No cyanosis, clubbing, or edema. NEUROLOGIC: The patient moves all extremities, slightly weak. LABORATORY AND DIAGNOSTIC DATA: Labs at this time show white count of 15, hemoglobin and hematocrit 8.7/28, and platelet is 212. BMP shows chloride 110, BUN 23, and glucose 128. BNP is 190. Albumin 1.8, hypoalbumin. INR is 4.4 and PTT is 45. Urinalysis is negative. ASSESSMENT: 1. Shortness of breath. 2. Altered mental status. 3. Pneumonia. 4. Sepsis. 5. Hyper-anticoagulate. 6. Hypo-albumin. 7. Arthritis. 8. Deep vein thrombosis. 9. Anemia. 10. Respiratory failure. 11. Congestive heart failure. 12. Urinary tract infection history. 13. Hypertension. 14. Chronic obstructive pulmonary disease. 15. Cachexia. 16. Alzheimer's. PLAN: 1. Continue pre-medications. 2. O2 and pulmonary treatment. 3. Antibiotics per Infectious Disease. 4. OT, PT, and dietary followup. 5. CBC and BMP in morning. 6. Resume home medications. 7. Dr. Rojas, Dr. Funes, Dr. Barker, and Dr. Freedman to consult. Johan Rangel D.O. DR: HARSHAD JOB#: [id number] CC:
--- NOTE | 2017-10-04 18:46 | Consultation ---
History of Present Illness General Date patient seen: Oct 04, 2017 Chief Complaint: Fever Reason for Consultation: pneumonia Present Illness HPI 66-year-old male, history of COPD on oxygen 2 L, dementia, hx of dvt on coumadin , bedbound, normally oriented to person only, contracted, PEG tube, right elbow cellulitis not getting better, so was sent in. for evaluation of possible pneumonia and fever of 103. Pt can't give any history , is bedbound and contracted. pt is admitted for further management. Allergies: Coded Allergies: No Known Allergies (Unverified , 12/05/15) Medication History Scheduled Amiodarone Hcl* (Amiodarone Hcl*), 200 MG GT BID, (Reported) Ascorbic Acid* (Ascorbic Acid*), 5 ML GT BID, (Reported) Cephalexin* (Keflex*), 500 MG ORAL EVERY 8 HOURS, (Reported) Cephalexin* (Cephalexin*), 500 MG ORAL EVERY 8 HOURS, (Reported) Clotrimazole* (Lotrimin*), 1 APPLIC TOPIC TWICE A DAY, (Reported) Doxycycline Hyclate* (Vibramycin*), 500 MG ORAL EVERY 12 HOURS, (Reported) Famotidine (Pepcid), 20 MG ORAL Q12HR, (Reported) Folic Acid* (Folic Acid*), 1 MG GT DAILY, (Reported) Memantine Hcl* (Namenda*), 5 MG ORAL TWICE A DAY, (Reported) Midodrine* (Proamatine*), 5 MG ORAL THREE TIMES A DAY, (Reported) Multivitamins* (Multivitamins*), 15 ML GT DAILY, (Reported) Olanzapine* (Zyprexa*), 10 MG GT BID, (Reported) Olanzapine* (Zyprexa*), 10 MG GT BID, (Reported) Bnzerifrvifw-Fsnf-Nqrujomp,Iso (Zosyn 3.375 Gm Pre Mix-Bag), 3.375 GM IVPB EVERY 8 HOURS, (Reported) Vancomycin Hcl (Vancomycin), 1.25 GM IV Q24H, (Reported) Warfarin Sod* (Coumadin*), 3 MG ORAL DAILY, (Reported) Warfarin Sod* (Warfarin Sod*), 2.5 MG ORAL DAILY, (Reported) Zinc Sulfate (Zinc Sulfate*), 220 MG GT DAILY, (Reported) Scheduled PRN Acetaminophen (Tylenol), 325 MG ORAL Q4HR PRN for For Pain, (Reported) Al Hydroxide/mg Hydroxide (Mag-Al Plus Suspension), 30 ML GT Q6HR PRN for Abdominal cramps, (Reported) Codeine/Promethazine Hcl* (Promethazine-Codeine Syrup*), 5 ML ORAL Q4H PRN for For Cough, (Reported) Ipratropium/Albuterol Sulfate (DuoNeb 0.5-3(2.5)mg/3ml), 3 ML HHN Q4HR PRN for Shortness of Breath, (Reported) Lorazepam* (Ativan*), 1 MG ORAL Q6HR PRN for For Anxiety, (Reported) Nitroglycerin (Nitroglycerin), 0.4 MG SL for Prn Chest Pain, (Reported) Ondansetron* (Zofran*), 4 MG ORAL Q6H PRN for Nausea & Vomiting, (Reported) Ondansetron* (Zofran*), 4 MG GT Q6H PRN for Nausea & Vomiting, (Reported) Polyethylene Glycol 3350* (Miralax*), 17 GM GT DAILY PRN for Constipation, ( Reported) Polyethylene Glycol 3350* (Miralax*), 17 GM GT DAILY PRN for Constipation, ( Reported) Temazepam* (Restoril*), 15 MG ORAL BEDTIME PRN for Insomnia, (Reported) Patient History Healthcare decision maker Resuscitation status Advanced Directive on File Past Medical/Surgical History Past Medical/Surgical History: (1) Schizophrenia (2) Cachexia (3) Alzheimer's dementia (4) HTN (hypertension) Review of Systems All Other Systems: negative except mentioned in HPI Physical Exam General Appearance: cachetic Lines, tubes and drains: peripheral HEENT: normocephalic, atraumatic Neck: non-tender, normal alignment Respiratory/Chest: rhonchi - bilaterally Breasts: no masses Cardiovascular/Chest: normal peripheral pulses, normal rate Abdomen: normal bowel sounds, non tender Genitourinary/Rectal: normal genital exam Extremities: normal range of motion, non-tender Last 24 Hour Vital Signs Date Time Temp Pulse Resp B/P (MAP) Pulse Ox O2 Delivery O2 Flow Rate FiO2 10/04/17 16:00 97.7 78 20 95/59 98 10/04/17 12:00 97.5 80 20 94/56 99 10/04/17 09:00 97.5 89 21 100/61 97 10/04/17 08:45 87 20 Nasal Cannula 2.0 28 10/04/17 08:00 97.7 88 21 99/59 97 10/04/17 07:19 97 Nasal Cannula 2.0 28 10/04/17 07:18 Nasal Cannula 2.0 28 10/04/17 05:48 84 10/04/17 04:00 Nasal Cannula 2.0 10/04/17 04:00 97.8 18 104/70 94 10/04/17 02:15 85 10/04/17 02:15 95 Nasal Cannula 2.0 10/04/17 01:55 97.7 118 20 99/68 93 10/04/17 01:50 99.7 85 20 101/79 96 Nasal Cannula 2.0 10/04/17 01:07 85 20 101/79 96 Nasal Cannula 2.0 10/03/17 23:20 99.7 93 28 120/66 94 Room Air 10/03/17 23:11 99.7 93 28 120/66 94 Room Air Intake and Output 10/03/17 10/04/17 19:00 07:00 Intake Total 260 ml Output Total 1400 ml Balance -1140 ml Intake Oral 0 ml IV Total 260 ml Output Urine Total 1400 ml Laboratory Tests Test 10/03/17 23:10 10/04/17 01:15 White Blood Count 15.0 K/UL (4.8-10.8) H Red Blood Count 3.60 M/UL (4.70-6.10) L Hemoglobin 8.7 G/DL (14.2-18.0) L Hematocrit 28.9 % (42.0-52.0) L Mean Corpuscular Volume 80 FL (80-99) Mean Corpuscular Hemoglobin 24.3 PG (27.0-31.0) L Mean Corpuscular Hemoglobin Concent 30.2 G/DL (32.0-36.0) L Red Cell Distribution Width 17.1 % (11.6-14.8) H Platelet Count 212 K/UL (150-450) Mean Platelet Volume 9.7 FL (6.5-10.1) Neutrophils (%) (Auto) % (45.0-75.0) Lymphocytes (%) (Auto) % (20.0-45.0) Monocytes (%) (Auto) % (1.0-10.0) Eosinophils (%) (Auto) % (0.0-3.0) Basophils (%) (Auto) % (0.0-2.0) Prothrombin Time 46.9 SEC (9.30-11.50) H Prothromb Time International Ratio 4.4 (0.9-1.1) H Activated Partial Thromboplast Time 45 SEC (23-33) H Sodium Level 144 MMOL/L (136-145) Potassium Level 4.4 MMOL/L (3.5-5.1) Chloride Level 110 MMOL/L (98-107) H Carbon Dioxide Level 28 MMOL/L (21-32) Anion Gap 6 mmol/L (5-15) Blood Urea Nitrogen 23 mg/dL (7-18) H Creatinine 0.8 MG/DL (0.55-1.30) Estimat Glomerular Filtration Rate > 60 mL/min (>60) Glucose Level 128 MG/DL (74-106) H Lactic Acid Level 1.40 mmol/L (0.66-2.22) Calcium Level 9.0 MG/DL (8.5-10.1) Total Bilirubin 0.3 MG/DL (0.2-1.0) Aspartate Amino Transf (AST/SGOT) 40 U/L (15-37) H Alanine Aminotransferase (ALT/SGPT) 40 U/L (12-78) Alkaline Phosphatase 73 U/L (46-116) Total Creatine Kinase 137 U/L (26-308) Troponin I 0.008 ng/mL (0.000-0.056) Pro-B-Type Natriuretic Peptide 190 pg/mL (0-125) H Total Protein 6.7 G/DL (6.4-8.2) Albumin 1.8 G/DL (3.4-5.0) L Globulin 4.9 g/dL Albumin/Globulin Ratio 0.4 (1.0-2.7) L Urine Color Yellow Urine Appearance Clear Urine pH 7 (4.5-8.0) Urine Specific [place] 1.010 (1.005-1.035) Urine Protein Negative (NEGATIVE) Urine Glucose (UA) Negative (NEGATIVE) Urine Ketones Negative (NEGATIVE) Urine Occult Blood Negative (NEGATIVE) Urine Nitrite Negative (NEGATIVE) Urine Bilirubin Negative (NEGATIVE) Urine Urobilinogen Normal MG/DL (0.0-1.0) Urine Leukocyte Esterase Negative (NEGATIVE) Microbiology Date/Time Source Procedure Growth Status 10/03/17 23:15 Nasal Nares Influenza Types A,B Antigen (GWENDOLYN) - Final Complete Height (Feet): 6 Height (Inches): 0.00 Weight (Pounds): 146 Medications Current Medications Medications (Trade) Dose Ordered Sig/Gloria Route PRN Reason Start Time Stop Time Status Last Admin Dose Admin Acetaminophen (Tylenol) 650 mg Q4H PRN ORAL T>100.5 10/04/17 07:00 11/03/17 06:59 Albuterol/ Ipratropium (Albuterol/ Ipratropium) 3 ml Q4H PRN HHN Shortness of Breath 10/04/17 07:00 10/09/17 06:59 Amiodarone HCl (Cordarone) 200 mg Q12HR GT 10/04/17 09:00 11/03/17 08:59 10/04/17 09:40 Dextrose (Dextrose 50%) STAT PRN IV Hypoglycemia 10/04/17 07:00 11/03/17 06:59 Heparin Sodium (Porcine) (Heparin 5000 units/ml) 5,000 units EVERY 12 HOURS SUBQ 10/04/17 09:00 11/03/17 08:59 10/04/17 09:43 Midodrine (Pro-Amatine) 5 mg Q8HR ORAL 10/04/17 09:00 11/03/17 08:59 10/04/17 14:03 Ondansetron HCl (Zofran) 4 mg Q6H PRN IVP Nausea & Vomiting 10/04/17 07:00 11/03/17 06:59 Pantoprazole (Protonix) 40 mg DAILY IV 10/04/17 09:00 11/03/17 08:59 10/04/17 09:39 Piperacillin Sod/ Tazobactam Sod 3.375 gm/Sodium Chloride 110 ml @ 27.5 mls/hr EVERY 8 HOURS IVPB 10/04/17 09:00 10/11/17 08:59 10/04/17 09:41 Polyethylene Glycol (Miralax) 17 gm DAILYPRN PRN ORAL Constipation 10/04/17 07:00 11/03/17 06:59 Temazepam (Restoril) 15 mg HSPRN PRN ORAL Insomnia 10/04/17 21:00 10/11/17 20:59 Vancomycin HCl (Vanco rx to dose) 1 ea DAILY PRN MISC . 10/04/17 07:15 11/03/17 07:14 Vancomycin HCl 1 gm/Dextrose 275 ml @ 183.3 mls/ hr Q12HR@1100,2300 IVPB 10/04/17 11:00 10/09/17 10:59 10/04/17 14:03 Assessment/Plan Problem List: (1) HCAP (healthcare-associated pneumonia) ICD Codes: J18.9 - Pneumonia, unspecified organism SNOMED: 826316422 (2) COPD (chronic obstructive pulmonary disease) ICD Codes: J44.9 - Chronic obstructive pulmonary disease, unspecified SNOMED: 17308633 (3) spastic quadriparesis, verbal unresponciveness (4) Malnutrition ICD Codes: E46 - Unspecified protein-calorie malnutrition SNOMED: 97956766 (5) Anemia ICD Codes: D64.9 - Anemia, unspecified SNOMED: 638907782 (6) Feeding by G-tube ICD Codes: Z93.1 - Gastrostomy status SNOMED: 652908351, 332928949 Assessment/Plan titrate fio2 check sputum iv abx check cultures [facility] ALMA LINDO Oct 04, 2017 18:46
--- NOTE | 2017-10-04 20:40 | Consultation ---
Consult Note Consult Note HEMATOLOGY/ONCOLOGY CONSULTATION CONSULTING PHYSICIAN: Gilberto Freedman M.D. REFERRING PHYSICIAN: Kvng Anderson 10/04/17 REASON FOR CONSULTATION: Evaluation of anemia. DVT IDENTIFICATION DATA: Dear Dr. Johan Rangel: The patient is a pleasant 66-year-old male who I have seen in the past at [facility] back in January and Jul. At that time, he was noted to have leukocytosis, anemia of chronic disease, anemia of iron deficiency, kidney disease, and thrombocytopenia. He has a history of DVT as well of the right lower extremity. He was anticoagulated with Coumadin. At this time, he presents to [facility] shortness of breath. Chest x-ray showed evidence of pneumonia. We will start him on antibiotics. Admitted to [facility] with hypertension. Cardiology consult as well as Pulmonary team as well as Hematology/Oncology. PAST MEDICAL HISTORY: COPD, hypertension, encephalopathy, renal failure, malnutrition, DVT, and history of aspiration pneumonia. PAST SURGICAL HISTORY: Status post PEG tube. MEDICATIONS: Tylenol, Boniva, DuoNeb, Ativan, 01:40, nitroglycerin, Zyprexa, Zofran, ALLERGIES: No known drug allergies. SOCIAL HISTORY: He lives in a [facility] facility. No alcohol, tobacco, or illicit drug use. FAMILY HISTORY: Noncontributory. REVIEW OF SYSTEMS: The patient is nonverbal. Difficult to obtain. PHYSICAL EXAMINATION: GENERAL: The patient is in no acute distress. VITAL SIGNS: Reviewed. PULMONARY: Decreased breath sounds. CARDIOVASCULAR: Regular rate. No S3 or S4. ABDOMEN: Soft, nontender, and nondistended. Positive PEG tube. EXTREMITIES: No cyanosis, clubbing, or edema. NEUROLOGIC: Laboratory Tests Test 10/03/17 23:10 10/04/17 01:15 White Blood Count 15.0 K/UL (4.8-10.8) H Red Blood Count 3.60 M/UL (4.70-6.10) L Hemoglobin 8.7 G/DL (14.2-18.0) L Hematocrit 28.9 % (42.0-52.0) L Mean Corpuscular Volume 80 FL (80-99) Mean Corpuscular Hemoglobin 24.3 PG (27.0-31.0) L Mean Corpuscular Hemoglobin Concent 30.2 G/DL (32.0-36.0) L Red Cell Distribution Width 17.1 % (11.6-14.8) H Platelet Count 212 K/UL (150-450) Mean Platelet Volume 9.7 FL (6.5-10.1) Neutrophils (%) (Auto) % (45.0-75.0) Lymphocytes (%) (Auto) % (20.0-45.0) Monocytes (%) (Auto) % (1.0-10.0) Eosinophils (%) (Auto) % (0.0-3.0) Basophils (%) (Auto) % (0.0-2.0) Prothrombin Time 46.9 SEC (9.30-11.50) H Prothromb Time International Ratio 4.4 (0.9-1.1) H Activated Partial Thromboplast Time 45 SEC (23-33) H Sodium Level 144 MMOL/L (136-145) Potassium Level 4.4 MMOL/L (3.5-5.1) Chloride Level 110 MMOL/L (98-107) H Carbon Dioxide Level 28 MMOL/L (21-32) Anion Gap 6 mmol/L (5-15) Blood Urea Nitrogen 23 mg/dL (7-18) H Creatinine 0.8 MG/DL (0.55-1.30) Estimat Glomerular Filtration Rate > 60 mL/min (>60) Glucose Level 128 MG/DL (74-106) H Lactic Acid Level 1.40 mmol/L (0.66-2.22) Calcium Level 9.0 MG/DL (8.5-10.1) Total Bilirubin 0.3 MG/DL (0.2-1.0) Aspartate Amino Transf (AST/SGOT) 40 U/L (15-37) H Alanine Aminotransferase (ALT/SGPT) 40 U/L (12-78) Alkaline Phosphatase 73 U/L (46-116) Total Creatine Kinase 137 U/L (26-308) Troponin I 0.008 ng/mL (0.000-0.056) Pro-B-Type Natriuretic Peptide 190 pg/mL (0-125) H Total Protein 6.7 G/DL (6.4-8.2) Albumin 1.8 G/DL (3.4-5.0) L Globulin 4.9 g/dL Albumin/Globulin Ratio 0.4 (1.0-2.7) L Urine Color Yellow Urine Appearance Clear Urine pH 7 (4.5-8.0) Urine Specific [place] 1.010 (1.005-1.035) Urine Protein Negative (NEGATIVE) Urine Glucose (UA) Negative (NEGATIVE) Urine Ketones Negative (NEGATIVE) Urine Occult Blood Negative (NEGATIVE) Urine Nitrite Negative (NEGATIVE) Urine Bilirubin Negative (NEGATIVE) Urine Urobilinogen Normal MG/DL (0.0-1.0) Urine Leukocyte Esterase Negative (NEGATIVE) ASSESSMENT AND RECS: 1. Deep venous thrombosis of [place] lower extremities history - most recently had recanalized dvt system, have recently again obtained duplex of lower extremities to reevaluate if the patient has any evidence of DVT. ---> At this time, we will hold off on anticoagulation. 2. Anemia secondary to chronic disease. 3. Anemia secondary to iron deficiency. ---> Continue the patient on IV iron for several doses. 4. Leukopenia, potentially secondary to underlying infection. He is on antibiotics. Currently improved 5. Thrombocytopenia secondary to underlying infection history, currently better 6. Pneumonia currently is receviing antibiotics I appreciate the consultation. Gilberto Freedman. Oct 04, 2017 20:40
[2017-10-05] VITALS: BP 116/71
[2017-10-05] MEDS: Vancomycin 1 GM in D5W 275 ML IVPB SCH ×2 (03:21→10:41)
[2017-10-05 04:00] VITALS: BP 116/72
[2017-10-05] MEDS: Piperacillin/Tazobactam 3.375 GM in NS 110 ML IVPB SCH ×3 (05:32→22:22)
[2017-10-05 07:50] LABS: HEMATOCRIT 26.3 % (42.0-52.0); HEMOGLOBIN 7.9 G/DL (14.2-18.0); MEAN CORPUSCULAR VOLUME 81 FL (80-99); PLATELET COUNT 194 K/UL (150-450); RED BLOOD COUNT 3.23 M/UL (4.70-6.10); RED CELL DISTRIBUTION WIDTH 17.5 % (11.6-14.8); WHITE BLOOD COUNT 7.3 K/UL (4.8-10.8)
[2017-10-05 08:00] VITALS: BP 109/66
[2017-10-05] MEDS: Amiodarone 200mg tab GT SCH ×2 (08:02→22:22)
[2017-10-05] MEDS: Pantoprazole Inj IV SCH (08:02)
[2017-10-05] MEDS: Heparin 5000 units/ml inj SUBQ SCH ×2 (08:05→22:26)
[2017-10-05 08:21] LABS: ALBUMIN 1.7 G/DL (3.4-5.0); ANION GAP 9 mmol/L (5-15); BLOOD UREA NITROGEN 19 mg/dL (7-18); CALCIUM 8.9 MG/DL (8.5-10.1); CARBON DIOXIDE 27 MMOL/L (21-32); CHLORIDE 110 MMOL/L (98-107); CREATININE 0.7 MG/DL (0.55-1.30); SODIUM 146 MMOL/L (136-145)
[2017-10-05 08:22] LABS: ANION GAP 7 mmol/L (5-15); BLOOD UREA NITROGEN 19 mg/dL (7-18); CARBON DIOXIDE 27 MMOL/L (21-32); CHLORIDE 111 MMOL/L (98-107); CREATININE 0.8 MG/DL (0.55-1.30); SODIUM 144 MMOL/L (136-145)
--- NOTE | 2017-10-05 11:57 | General Progress Note ---
Assessment/Plan Problem List: (1) CHF (congestive heart failure) ICD Codes: I50.9 - Heart failure, unspecified SNOMED: 03406537 (2) UTI (urinary tract infection) ICD Codes: N39.0 - Urinary tract infection, site not specified SNOMED: 22282261 (3) HTN (hypertension) ICD Codes: I10 - Essential (primary) hypertension SNOMED: 60444920 (4) Pneumonia ICD Codes: J18.9 - Pneumonia, unspecified organism SNOMED: 399081974 (5) Cachexia ICD Codes: R64 - Cachexia SNOMED: 839663981 (6) Malnutrition ICD Codes: E46 - Unspecified protein-calorie malnutrition SNOMED: 77443461 (7) Anemia ICD Codes: D64.9 - Anemia, unspecified SNOMED: 312367469 (8) COPD (chronic obstructive pulmonary disease) ICD Codes: J44.9 - Chronic obstructive pulmonary disease, unspecified SNOMED: 89179288 Status: unchanged Assessment/Plan 02 pulm tx abx cbc bmp am Subjective Constitutional: Reports: weakness Allergies: Coded Allergies: No Known Allergies (Unverified , 12/05/15) All Systems: reviewed and negative except above Subjective 02nc confused Objective Last 24 Hour Vital Signs Date Time Temp Pulse Resp B/P (MAP) Pulse Ox O2 Delivery O2 Flow Rate FiO2 10/05/17 09:30 85 18 Nasal Cannula 2.0 28 10/05/17 09:30 Nasal Cannula 2.0 28 10/05/17 09:30 98 Nasal Cannula 2.0 28 10/05/17 08:00 97.5 77 20 109/66 97 10/05/17 04:00 98.1 65 18 116/72 91 10/05/17 00:00 97.9 87 18 116/71 95 10/05/17 00:00 Nasal Cannula 2.0 10/04/17 20:12 Nasal Cannula 2.0 28 10/04/17 20:12 84 18 Nasal Cannula 2.0 28 10/04/17 20:12 96 Nasal Cannula 2.0 28 10/04/17 20:00 98.1 84 18 106/68 96 10/04/17 20:00 Nasal Cannula 2.0 10/04/17 16:00 97.7 78 20 95/59 98 10/04/17 12:00 97.5 80 20 94/56 99 Intake and Output 10/04/17 10/05/17 19:00 07:00 Intake Total 300 ml 842.5 ml Output Total 450 ml Balance 300 ml 392.5 ml Free Water 100 ml IV Total 412.5 ml Tube Feeding 300 ml 330 ml Output Urine Total 450 ml Laboratory Tests 10/04/17 20:40: Transferrin [Pending], Soluble Transferrin Receptor [Pending], Ferritin 175 10/05/17 06:15: White Blood Count 7.3#, Red Blood Count 3.23L, Hemoglobin 7.9L, Hematocrit 26.3L , Mean Corpuscular Volume 81, Mean Corpuscular Hemoglobin 24.4L, Mean Corpuscular Hemoglobin Concent 30.0L, Red Cell Distribution Width 17.5H, Platelet Count 194, Mean Platelet Volume 9.1, Neutrophils (%) (Auto) , Lymphocytes (%) (Auto) , Monocytes (%) (Auto) , Eosinophils (%) (Auto) , Basophils (%) (Auto) , Differential Total Cells Counted 100, Neutrophils % ( Manual) 79H, Lymphocytes % (Manual) 12L, Monocytes % (Manual) 7, Eosinophils % ( Manual) 1, Basophils % (Manual) 1, Band Neutrophils 0, Platelet Estimate Adequate, Platelet Morphology Normal, Hypochromasia 3+, Anisocytosis 1+, Sodium Level 144, Potassium Level 4.0, Chloride Level 111H, Carbon Dioxide Level 27, Anion Gap 7, Blood Urea Nitrogen 19H, Creatinine 0.8, Estimat Glomerular Filtration Rate > 60, Glucose Level 100, Calcium Level 9.0, Phosphorus Level 3.0 , Albumin 1.7L 10/05/17 10:40: Vancomycin Level Trough [Pending] Height (Feet): 6 Height (Inches): 0.00 Weight (Pounds): 146 General Appearance: lethargic, confused EENT: normal ENT inspection Neck: normal alignment Cardiovascular: normal peripheral pulses, normal rate, regular rhythm Respiratory/Chest: chest wall non-tender, lungs clear, normal breath sounds Abdomen: normal bowel sounds, non tender, soft Extremities: normal inspection Edema: no edema noted Arm (L), no edema noted Arm (R), no edema noted Leg (L), no edema noted Leg (R), no edema noted Pedal (L), no edema noted Pedal (R), no edema noted Generalized Neurologic: motor weakness Skin: normal pigmentation, warm/dry ALONDRA SINGH Oct 05, 2017 11:57
[2017-10-05 12:00] VITALS: BP 121/74
--- NOTE | 2017-10-05 13:32 | Infectious Diseases Prog Note ---
Assessment/Plan Assessment/Plan A; Sepsis Pneumonia Dementia Chronic DVT of legs P; Continue Zosyn & Vancomycin will f/u cultures Subjective ROS Limited/Unobtainable: Yes Allergies: Coded Allergies: No Known Allergies (Unverified , 12/05/15) Objective Vital Signs Last 24 Hour Vital Signs Date Time Temp Pulse Resp B/P (MAP) Pulse Ox O2 Delivery O2 Flow Rate FiO2 10/05/17 12:00 97.9 87 20 121/74 94 10/05/17 09:30 85 18 Nasal Cannula 2.0 28 10/05/17 09:30 Nasal Cannula 2.0 28 10/05/17 09:30 98 Nasal Cannula 2.0 28 10/05/17 08:00 97.5 77 20 109/66 97 10/05/17 04:00 98.1 65 18 116/72 91 10/05/17 00:00 97.9 87 18 116/71 95 10/05/17 00:00 Nasal Cannula 2.0 10/04/17 20:12 Nasal Cannula 2.0 28 10/04/17 20:12 84 18 Nasal Cannula 2.0 28 10/04/17 20:12 96 Nasal Cannula 2.0 28 10/04/17 20:00 98.1 84 18 106/68 96 10/04/17 20:00 Nasal Cannula 2.0 10/04/17 16:00 97.7 78 20 95/59 98 Height (Feet): 6 Height (Inches): 0.00 Weight (Pounds): 146 General Appearance: no acute distress HEENT: mucous membranes moist Respiratory/Chest: other - few ronchi Cardiovascular: normal rate Abdomen: soft, non tender, other - GT feeding Extremities: other - contracted leg, right arm edema Neurologic/Psychiatric: alert Microbiology Date/Time Source Procedure Growth Status 10/03/17 23:15 Blood Blood Culture - Preliminary NO GROWTH AFTER 24 HOURS Resulted 10/03/17 23:10 Blood Blood Culture - Preliminary NO GROWTH AFTER 24 HOURS Resulted 10/03/17 23:15 Nasal Nares Influenza Types A,B Antigen (GWENDOLYN) - Final Complete Laboratory Tests Test 10/04/17 20:40 10/05/17 06:15 10/05/17 10:40 Transferrin Pending Soluble Transferrin Receptor Pending Ferritin 175 NG/ML (8-388) White Blood Count 7.3 K/UL (4.8-10.8) # Red Blood Count 3.23 M/UL (4.70-6.10) L Hemoglobin 7.9 G/DL (14.2-18.0) L Hematocrit 26.3 % (42.0-52.0) L Mean Corpuscular Volume 81 FL (80-99) Mean Corpuscular Hemoglobin 24.4 PG (27.0-31.0) L Mean Corpuscular Hemoglobin Concent 30.0 G/DL (32.0-36.0) L Red Cell Distribution Width 17.5 % (11.6-14.8) H Platelet Count 194 K/UL (150-450) Mean Platelet Volume 9.1 FL (6.5-10.1) Neutrophils (%) (Auto) % (45.0-75.0) Lymphocytes (%) (Auto) % (20.0-45.0) Monocytes (%) (Auto) % (1.0-10.0) Eosinophils (%) (Auto) % (0.0-3.0) Basophils (%) (Auto) % (0.0-2.0) Differential Total Cells Counted 100 Neutrophils % (Manual) 79 % (45-75) H Lymphocytes % (Manual) 12 % (20-45) L Monocytes % (Manual) 7 % (1-10) Eosinophils % (Manual) 1 % (0-3) Basophils % (Manual) 1 % (0-2) Band Neutrophils 0 % (0-8) Platelet Estimate Adequate Platelet Morphology Normal Hypochromasia 3+ Anisocytosis 1+ Sodium Level 144 MMOL/L (136-145) Potassium Level 4.0 MMOL/L (3.5-5.1) Chloride Level 111 MMOL/L (98-107) H Carbon Dioxide Level 27 MMOL/L (21-32) Anion Gap 7 mmol/L (5-15) Blood Urea Nitrogen 19 mg/dL (7-18) H Creatinine 0.8 MG/DL (0.55-1.30) Estimat Glomerular Filtration Rate > 60 mL/min (>60) Glucose Level 100 MG/DL (74-106) Calcium Level 9.0 MG/DL (8.5-10.1) Phosphorus Level 3.0 MG/DL (2.5-4.9) Albumin 1.7 G/DL (3.4-5.0) L Vancomycin Level Trough 20.6 ug/mL (5.0-12.0) H Current Medications Medications (Trade) Dose Ordered Sig/Gloria Route PRN Reason Start Time Stop Time Status Last Admin Dose Admin Acetaminophen (Tylenol) 650 mg Q4H PRN ORAL T>100.5 10/04/17 07:00 11/03/17 06:59 Albuterol/ Ipratropium (Albuterol/ Ipratropium) 3 ml Q4H PRN HHN Shortness of Breath 10/04/17 07:00 10/09/17 06:59 Amiodarone HCl (Cordarone) 200 mg Q12HR GT 10/04/17 09:00 11/03/17 08:59 10/05/17 08:02 Dextrose (Dextrose 50%) STAT PRN IV Hypoglycemia 10/04/17 07:00 11/03/17 06:59 Heparin Sodium (Porcine) (Heparin 5000 units/ml) 5,000 units EVERY 12 HOURS SUBQ 10/04/17 09:00 11/03/17 08:59 10/05/17 08:05 Midodrine (Pro-Amatine) 5 mg Q8HR ORAL 10/04/17 09:00 11/03/17 08:59 10/05/17 05:32 Ondansetron HCl (Zofran) 4 mg Q6H PRN IVP Nausea & Vomiting 10/04/17 07:00 11/03/17 06:59 Pantoprazole (Protonix) 40 mg DAILY IV 10/04/17 09:00 11/03/17 08:59 10/05/17 08:02 Piperacillin Sod/ Tazobactam Sod 3.375 gm/Sodium Chloride 110 ml @ 27.5 mls/hr EVERY 8 HOURS IVPB 10/04/17 09:00 10/11/17 08:59 10/05/17 05:32 Polyethylene Glycol (Miralax) 17 gm DAILYPRN PRN ORAL Constipation 10/04/17 07:00 11/03/17 06:59 Temazepam (Restoril) 15 mg HSPRN PRN ORAL Insomnia 10/04/17 21:00 10/11/17 20:59 Vancomycin HCl (Vanco rx to dose) 1 ea DAILY PRN MISC . 10/04/17 07:15 11/03/17 07:14 Vancomycin/Sodium Chloride 250 ml @ 166.667 mls/hr Q12HR@0200,1400 IVPB 10/06/17 02:00 10/11/17 01:59 MATY ROJAS Oct 05, 2017 13:32
[2017-10-05 16:00] VITALS: BP 108/66
--- NOTE | 2017-10-05 16:59 | GI Initial Consult Note ---
History of Present Illness General Date patient seen: Oct 05, 2017 Time patient seen: 12:00 Reason for Hospitalization: Fever Referring physician: ALONDRA SINGH Reason for Consultation: ANEMIA Present Illness HPI Patient sent in for possible pneumonia. His been coughing a. The patient has a history of pneumonia in the past. He's unable to provide any history. He received tylenol for a fever at 2100. GI consulted for anemia. HPI as noted above. ROS limited, patient seen on floor awake, alert NAD with no active s/sx of N/V/D with noted general contractures. Known patient to us s/p PEG back in 2015 presents today with anemia with history of iron deficiency and GT dependency. Home Meds Reported Medications Clotrimazole* (LOTRIMIN*) 15 Gm Cream..g., 1 APPLIC TOPIC TWICE A DAY, GM 09/21/17 Cephalexin* (CEPHALEXIN*) 500 Mg Tablet, 500 MG ORAL EVERY 8 HOURS, CAP 09/21/17 Memantine Hcl* (NAMENDA*) 5 Mg Tablet, 5 MG ORAL TWICE A DAY, TAB 09/21/17 Doxycycline Hyclate* (VIBRAMYCIN*) 100 Mg Capsule, 500 MG ORAL EVERY 12 HOURS, # 14 CAP 0 Refills 09/21/17 Cephalexin* (KEFLEX*) 500 Mg Capsule, 500 MG ORAL EVERY 8 HOURS, CAP 09/21/17 Olanzapine* (ZYPREXA*) 10 Mg Tablet, 10 MG GT BID, #30 TAB 0 Refills 09/18/17 Ondansetron* (ZOFRAN*) 4 Mg Tablet, 4 MG GT Q6H Y for Nausea & Vomiting, TAB 09/18/17 Zinc Sulfate (ZINC SULFATE*) 220 Mg Capsule, 220 MG GT DAILY, CAP 0 Refills 09/18/17 Multivitamins* (MULTIVITAMINS*) 1 Each Tablet, 15 ML GT DAILY, TAB 0 Refills 09/18/17 Polyethylene Glycol 3350* (MIRALAX*) 17 Gm Powd.pack, 17 GM GT DAILY Y for Constipation, PACKET 09/18/17 Folic Acid* (FOLIC ACID*) 1 Mg Tablet, 1 MG GT DAILY, TAB 09/18/17 Ascorbic Acid* (ASCORBIC ACID*) 250 Mg Tablet, 5 ML GT BID, TAB 09/18/17 Amiodarone Hcl* (AMIODARONE HCL*) 400 Mg Tablet, 200 MG GT BID for hold if sbp < 100, hr <60, TAB 09/18/17 Warfarin Sod* (WARFARIN SOD*) 2.5 Mg Tablet, 2.5 MG ORAL DAILY, TAB 06/21/17 Ondansetron* (ZOFRAN*) 4 Mg Tablet, 4 MG ORAL Q6H Y for Nausea & Vomiting, TAB 01/18/17 Al Hydroxide/mg Hydroxide (Mag-Al Plus Suspension) 30 Ml Oral.susp, 30 ML GT Q6HR Y for Abdominal cramps, ML 01/18/17 Warfarin Sod* (COUMADIN*) 3 Mg Tablet, 3 MG ORAL DAILY, TAB 01/18/17 Vancomycin Hcl (Vancomycin) 1 Gm Vial, 1.25 GM IV Q24H, VIAL 01/18/17 Polyethylene Glycol 3350* (MIRALAX*) 17 Gm Powd.pack, 17 GM GT DAILY Y for Constipation, PACKET 01/18/17 Veeqzcoernuw-Musq-Nyzduhsg,Iso (ZOSYN 3.375 GM PRE MIX-BAG) 3.375 Gm/50 Ml Froz.piggy, 3.375 GM IVPB EVERY 8 HOURS, BAG 01/18/17 Olanzapine* (ZYPREXA*) 10 Mg Tablet, 10 MG GT BID, #30 TAB 0 Refills 01/18/17 Lorazepam* (ATIVAN*) 1 Mg Tablet, 1 MG ORAL Q6HR Y for For Anxiety, TAB 01/18/17 Ipratropium/Albuterol Sulfate (DuoNeb 0.5-3(2.5)mg/3ml) 3 Ml Ampul.neb, 3 ML HHN Q4HR Y for Shortness of Breath, EA 01/18/17 Famotidine (PEPCID) 20 Mg Tablet, 20 MG ORAL Q12HR, #7 TAB 0 Refills 01/18/17 Temazepam* (RESTORIL*) 15 Mg Capsule, 15 MG ORAL BEDTIME Y for Insomnia, CAP 12/29/16 Nitroglycerin (NITROGLYCERIN) 0.4 Mg Tab.subl, 0.4 MG SL Y for Prn Chest Pain, TAB 12/29/16 Codeine/Promethazine Hcl* (PROMETHAZINE-CODEINE SYRUP*) 118 Ml Syrup, 5 ML ORAL Q4H Y for For Cough, ML 0 Refills 4/20/17 Acetaminophen (Tylenol) 325 Mg Tablet, 325 MG ORAL Q4HR Y for For Pain, #30 TAB 0 Refills 12/29/16 Midodrine* (PROAMATINE*) 5 Mg Tablet, 5 MG ORAL THREE TIMES A DAY, TAB 12/20/16 Med list reviewed/reconciled: Yes Allergies: Coded Allergies: No Known Allergies (Unverified , 12/05/15) Patient History Limited by: medical condition History Provided By: Medical Record PMH Narrative Past Medical History: see triage record, old chart reviewed Social History Narrative SNF Reviewed Nursing Documentation: PMH: Agreed, PSxH: Agreed Nursing Documentation-PMH Hx Cardiac Problems: Yes - A FIB Hx Hypertension: Yes - ANEMIA Hx COPD: Yes Hx Cancer: No Hx Gastrointestinal Problems: Yes - Dysphagia Hx Dialysis: No - CKD History Of Psychiatric Problem: Yes - SCHIZO,ALZHEIMERS Hx Neurological Problems: Yes Hx Dementia: Yes Hx Alzheimer's Disease: Yes Social History: Denies: smoking, alcohol use, drug use, other Review of Systems All Other Systems: limited Physical Exam Vital Signs Date Time Temp Pulse Resp B/P (MAP) Pulse Ox O2 Delivery O2 Flow Rate FiO2 10/03/17 23:11 99.7 93 28 120/66 94 Room Air 10/04/17 01:07 2.0 10/04/17 07:18 28 Sp02 EP Interpretation: reviewed Labs Laboratory Tests Test 10/04/17 20:40 10/05/17 06:15 10/05/17 10:40 Transferrin Pending Soluble Transferrin Receptor Pending Ferritin 175 NG/ML (8-388) White Blood Count 7.3 K/UL (4.8-10.8) # Red Blood Count 3.23 M/UL (4.70-6.10) L Hemoglobin 7.9 G/DL (14.2-18.0) L Hematocrit 26.3 % (42.0-52.0) L Mean Corpuscular Volume 81 FL (80-99) Mean Corpuscular Hemoglobin 24.4 PG (27.0-31.0) L Mean Corpuscular Hemoglobin Concent 30.0 G/DL (32.0-36.0) L Red Cell Distribution Width 17.5 % (11.6-14.8) H Platelet Count 194 K/UL (150-450) Mean Platelet Volume 9.1 FL (6.5-10.1) Neutrophils (%) (Auto) % (45.0-75.0) Lymphocytes (%) (Auto) % (20.0-45.0) Monocytes (%) (Auto) % (1.0-10.0) Eosinophils (%) (Auto) % (0.0-3.0) Basophils (%) (Auto) % (0.0-2.0) Differential Total Cells Counted 100 Neutrophils % (Manual) 79 % (45-75) H Lymphocytes % (Manual) 12 % (20-45) L Monocytes % (Manual) 7 % (1-10) Eosinophils % (Manual) 1 % (0-3) Basophils % (Manual) 1 % (0-2) Band Neutrophils 0 % (0-8) Platelet Estimate Adequate Platelet Morphology Normal Hypochromasia 3+ Anisocytosis 1+ Sodium Level 144 MMOL/L (136-145) Potassium Level 4.0 MMOL/L (3.5-5.1) Chloride Level 111 MMOL/L (98-107) H Carbon Dioxide Level 27 MMOL/L (21-32) Anion Gap 7 mmol/L (5-15) Blood Urea Nitrogen 19 mg/dL (7-18) H Creatinine 0.8 MG/DL (0.55-1.30) Estimat Glomerular Filtration Rate > 60 mL/min (>60) Glucose Level 100 MG/DL (74-106) Calcium Level 9.0 MG/DL (8.5-10.1) Phosphorus Level 3.0 MG/DL (2.5-4.9) Albumin 1.7 G/DL (3.4-5.0) L Vancomycin Level Trough 20.6 ug/mL (5.0-12.0) H General Appearance: well appearing, no apparent distress, alert, thin Head: normocephalic Neck: supple Respiratory: lungs clear, normal breath sounds, no respiratory distress Cardiovascular: normal rate Gastrointestinal: normal inspection, non tender, soft Neurologic: alert Skin: normal inspection, normal color, no rash Current Medications Current Medications Medications (Trade) Dose Ordered Sig/Gloria Route PRN Reason Start Time Stop Time Status Last Admin Dose Admin Acetaminophen (Tylenol) 650 mg Q4H PRN ORAL T>100.5 10/04/17 07:00 11/03/17 06:59 Albuterol/ Ipratropium (Albuterol/ Ipratropium) 3 ml Q4H PRN HHN Shortness of Breath 10/04/17 07:00 10/09/17 06:59 Amiodarone HCl (Cordarone) 200 mg Q12HR GT 10/04/17 09:00 11/03/17 08:59 10/05/17 08:02 Dextrose (Dextrose 50%) STAT PRN IV Hypoglycemia 10/04/17 07:00 11/03/17 06:59 Heparin Sodium (Porcine) (Heparin 5000 units/ml) 5,000 units EVERY 12 HOURS SUBQ 10/04/17 09:00 11/03/17 08:59 10/05/17 08:05 Midodrine (Pro-Amatine) 5 mg Q8HR ORAL 10/04/17 09:00 11/03/17 08:59 10/05/17 16:46 Ondansetron HCl (Zofran) 4 mg Q6H PRN IVP Nausea & Vomiting 10/04/17 07:00 11/03/17 06:59 Pantoprazole (Protonix) 40 mg DAILY IV 10/04/17 09:00 11/03/17 08:59 10/05/17 08:02 Piperacillin Sod/ Tazobactam Sod 3.375 gm/Sodium Chloride 110 ml @ 27.5 mls/hr EVERY 8 HOURS IVPB 10/04/17 09:00 10/11/17 08:59 10/05/17 16:47 Polyethylene Glycol (Miralax) 17 gm DAILYPRN PRN ORAL Constipation 10/04/17 07:00 11/03/17 06:59 Temazepam (Restoril) 15 mg HSPRN PRN ORAL Insomnia 10/04/17 21:00 10/11/17 20:59 Vancomycin HCl (Vanco rx to dose) 1 ea DAILY PRN MISC . 10/04/17 07:15 11/03/17 07:14 Vancomycin/Sodium Chloride 250 ml @ 166.667 mls/hr Q12HR@0200,1400 IVPB 10/06/17 02:00 10/11/17 01:59 GI: Plan Problems: (1) Anemia (2) Malnutrition (3) Feeding by G-tube (4) Dysphagia (5) Constipation Plan anemia work up OB stool r/o GI bleed monitor H&H, prn transfusions >> unable to consent, will assess for active bleed prior transfusion bowel regime >> colace + miralax GT site care BID/prn - clean with NS, place gauze under retention ring then clamp. Prevacid GT fu labs outpatient Hep C treatment with PCP Discussed with Dr. Dinh. Thank you for this patient referral, we will follow. Beth Carver N.P. Oct 05, 2017 16:59
--- NOTE | 2017-10-05 17:05 | Pulmonology Progress Note ---
Assessment/Plan Problems: (1) HCAP (healthcare-associated pneumonia) (2) COPD (chronic obstructive pulmonary disease) (3) spastic quadriparesis, verbal unresponciveness (4) Malnutrition (5) Anemia (6) Feeding by G-tube Assessment/Plan respiratory treatment IV abx check cultures tolerating feeing check electroltyes chest pt check labs in am Subjective ROS Limited/Unobtainable: Yes Constitutional: Reports: no symptoms Allergies: Coded Allergies: No Known Allergies (Unverified , 12/05/15) Objective Last 24 Hour Vital Signs Date Time Temp Pulse Resp B/P (MAP) Pulse Ox O2 Delivery O2 Flow Rate FiO2 10/05/17 16:00 98.2 86 20 108/66 92 10/05/17 12:00 97.9 87 20 121/74 94 10/05/17 09:30 85 18 Nasal Cannula 2.0 28 10/05/17 09:30 Nasal Cannula 2.0 28 10/05/17 09:30 98 Nasal Cannula 2.0 28 10/05/17 08:00 97.5 77 20 109/66 97 10/05/17 04:00 98.1 65 18 116/72 91 10/05/17 00:00 97.9 87 18 116/71 95 10/05/17 00:00 Nasal Cannula 2.0 10/04/17 20:12 Nasal Cannula 2.0 28 10/04/17 20:12 84 18 Nasal Cannula 2.0 28 10/04/17 20:12 96 Nasal Cannula 2.0 28 10/04/17 20:00 98.1 84 18 106/68 96 10/04/17 20:00 Nasal Cannula 2.0 Intake and Output 10/04/17 10/05/17 19:00 07:00 Intake Total 300 ml 842.5 ml Output Total 450 ml Balance 300 ml 392.5 ml Free Water 100 ml IV Total 412.5 ml Tube Feeding 300 ml 330 ml Output Urine Total 450 ml Objective General Appearance: cachetic Lines, tubes and drains: peripheral HEENT: normocephalic, atraumatic Neck: non-tender, normal alignment Respiratory/Chest: chest wall non-tender, lungs clear Breasts: no masses Cardiovascular/Chest: normal peripheral pulses Abdomen: normal bowel sounds, non tender Genitourinary/Rectal: normal genital exam, normal rectal exam Extremities: normal range of motion Skin Exam: normal pigmentation Microbiology Date/Time Source Procedure Growth Status 10/03/17 23:15 Blood Blood Culture - Preliminary NO GROWTH AFTER 24 HOURS Resulted 10/03/17 23:10 Blood Blood Culture - Preliminary NO GROWTH AFTER 24 HOURS Resulted 10/03/17 23:15 Nasal Nares Influenza Types A,B Antigen (GWENDOLYN) - Final Complete Laboratory Tests 10/04/17 20:40: Transferrin [Pending], Soluble Transferrin Receptor [Pending], Ferritin 175 10/05/17 06:15: White Blood Count 7.3#, Red Blood Count 3.23L, Hemoglobin 7.9L, Hematocrit 26.3L , Mean Corpuscular Volume 81, Mean Corpuscular Hemoglobin 24.4L, Mean Corpuscular Hemoglobin Concent 30.0L, Red Cell Distribution Width 17.5H, Platelet Count 194, Mean Platelet Volume 9.1, Neutrophils (%) (Auto) , Lymphocytes (%) (Auto) , Monocytes (%) (Auto) , Eosinophils (%) (Auto) , Basophils (%) (Auto) , Differential Total Cells Counted 100, Neutrophils % ( Manual) 79H, Lymphocytes % (Manual) 12L, Monocytes % (Manual) 7, Eosinophils % ( Manual) 1, Basophils % (Manual) 1, Band Neutrophils 0, Platelet Estimate Adequate, Platelet Morphology Normal, Hypochromasia 3+, Anisocytosis 1+, Sodium Level 144, Potassium Level 4.0, Chloride Level 111H, Carbon Dioxide Level 27, Anion Gap 7, Blood Urea Nitrogen 19H, Creatinine 0.8, Estimat Glomerular Filtration Rate > 60, Glucose Level 100, Calcium Level 9.0, Phosphorus Level 3.0 , Albumin 1.7L 10/05/17 10:40: Vancomycin Level Trough 20.6H Current Medications Medications (Trade) Dose Ordered Sig/Gloria Route PRN Reason Start Time Stop Time Status Last Admin Dose Admin Acetaminophen (Tylenol) 650 mg Q4H PRN ORAL T>100.5 10/04/17 07:00 11/03/17 06:59 Albuterol/ Ipratropium (Albuterol/ Ipratropium) 3 ml Q4H PRN HHN Shortness of Breath 10/04/17 07:00 10/09/17 06:59 Amiodarone HCl (Cordarone) 200 mg Q12HR GT 10/04/17 09:00 11/03/17 08:59 10/05/17 08:02 Dextrose (Dextrose 50%) STAT PRN IV Hypoglycemia 10/04/17 07:00 11/03/17 06:59 Heparin Sodium (Porcine) (Heparin 5000 units/ml) 5,000 units EVERY 12 HOURS SUBQ 10/04/17 09:00 11/03/17 08:59 10/05/17 08:05 Midodrine (Pro-Amatine) 5 mg Q8HR ORAL 10/04/17 09:00 11/03/17 08:59 10/05/17 16:46 Ondansetron HCl (Zofran) 4 mg Q6H PRN IVP Nausea & Vomiting 10/04/17 07:00 11/03/17 06:59 Pantoprazole (Protonix) 40 mg DAILY IV 10/04/17 09:00 11/03/17 08:59 10/05/17 08:02 Piperacillin Sod/ Tazobactam Sod 3.375 gm/Sodium Chloride 110 ml @ 27.5 mls/hr EVERY 8 HOURS IVPB 10/04/17 09:00 10/11/17 08:59 10/05/17 16:47 Polyethylene Glycol (Miralax) 17 gm DAILYPRN PRN ORAL Constipation 10/04/17 07:00 11/03/17 06:59 Temazepam (Restoril) 15 mg HSPRN PRN ORAL Insomnia 10/04/17 21:00 10/11/17 20:59 Vancomycin HCl (Vanco rx to dose) 1 ea DAILY PRN MISC . 10/04/17 07:15 11/03/17 07:14 Vancomycin/Sodium Chloride 250 ml @ 166.667 mls/hr Q12HR@0200,1400 IVPB 10/06/17 02:00 10/11/17 01:59 ALMA LINDO Oct 05, 2017 17:05
[2017-10-05 20:00] VITALS: BP 105/56
--- NOTE | 2017-10-05 22:16 | General Progress Note ---
Assessment/Plan Status: stable Assessment/Plan 1. Deep venous thrombosis of bilaterla lower extremities history - --> most recently had recanalized dvt system, --> have recently again obtained duplex of lower extremities to reevaluate if the patient has any evidence of DVT. ---> At this time, we will hold off on anticoagulation. 2. Anemia secondary to chronic disease. --> Blood transfusion not required unless symptomatic or hgb <7 3. Anemia secondary to iron deficiency. ---> Continue the patient on IV iron for several doses. 4. Leukopenia, potentially secondary to underlying infection. He is on antibiotics. Currently improved 5. Thrombocytopenia secondary to underlying infection history, currently better 6. Pneumonia currently is receviing antibiotics Subjective Date patient seen: Oct 05, 2017 Constitutional: Denies: no symptoms, chills, diaphoresis, fever, malaise, weakness, other HEENT: Denies: no symptoms, eye pain, blurred vision, tearing, double vision, ear pain, ear discharge, nose pain, nose congestion, throat pain, throat swelling, mouth pain, mouth swelling, other Cardiovascular: Denies: no symptoms, chest pain, edema, irregular heart rate, lightheadedness, palpitations, syncope, other Respiratory: Denies: no symptoms, cough, orthopnea, shortness of breath, SOB with excertion, SOB at rest, sputum, stridor, wheezing, other Gastrointestinal/Abdominal: Denies: no symptoms, abdomen distended, abdominal pain, black stools, tarry stools, blood in stool, constipated, diarrhea, difficulty swallowing, nausea, poor appetite, poor fluid intake, rectal bleeding , vomiting, other Genitourinary: Denies: no symptoms, burning, discharge, frequency, flank pain, hematuria, incontinence, pain, urgency, other Hematologic/Lymphatic: Reports: anemia Allergies: Coded Allergies: No Known Allergies (Unverified , 12/05/15) Subjective Nonverbal. No acute distress. Objective Last 24 Hour Vital Signs Date Time Temp Pulse Resp B/P (MAP) Pulse Ox O2 Delivery O2 Flow Rate FiO2 10/05/17 20:00 97.9 78 20 105/56 94 10/05/17 19:52 97 Nasal Cannula 2.0 28 10/05/17 19:52 Nasal Cannula 2.0 28 10/05/17 19:51 80 18 Nasal Cannula 2.0 28 10/05/17 16:00 98.2 86 20 108/66 92 10/05/17 12:00 97.9 87 20 121/74 94 10/05/17 09:30 85 18 Nasal Cannula 2.0 28 10/05/17 09:30 Nasal Cannula 2.0 28 10/05/17 09:30 98 Nasal Cannula 2.0 28 10/05/17 08:00 97.5 77 20 109/66 97 10/05/17 04:00 98.1 65 18 116/72 91 10/05/17 00:00 97.9 87 18 116/71 95 10/05/17 00:00 Nasal Cannula 2.0 Intake and Output 10/04/17 10/05/17 19:00 07:00 Intake Total 300 ml 872.5 ml Output Total 450 ml Balance 300 ml 422.5 ml Free Water 100 ml IV Total 412.5 ml Tube Feeding 300 ml 360 ml Output Urine Total 450 ml Laboratory Tests 10/05/17 06:15: White Blood Count 7.3#, Red Blood Count 3.23L, Hemoglobin 7.9L, Hematocrit 26.3L , Mean Corpuscular Volume 81, Mean Corpuscular Hemoglobin 24.4L, Mean Corpuscular Hemoglobin Concent 30.0L, Red Cell Distribution Width 17.5H, Platelet Count 194, Mean Platelet Volume 9.1, Neutrophils (%) (Auto) , Lymphocytes (%) (Auto) , Monocytes (%) (Auto) , Eosinophils (%) (Auto) , Basophils (%) (Auto) , Differential Total Cells Counted 100, Neutrophils % ( Manual) 79H, Lymphocytes % (Manual) 12L, Monocytes % (Manual) 7, Eosinophils % ( Manual) 1, Basophils % (Manual) 1, Band Neutrophils 0, Platelet Estimate Adequate, Platelet Morphology Normal, Hypochromasia 3+, Anisocytosis 1+, Sodium Level 144, Potassium Level 4.0, Chloride Level 111H, Carbon Dioxide Level 27, Anion Gap 7, Blood Urea Nitrogen 19H, Creatinine 0.8, Estimat Glomerular Filtration Rate > 60, Glucose Level 100, Calcium Level 9.0, Phosphorus Level 3.0 , Albumin 1.7L 10/05/17 10:40: Vancomycin Level Trough 20.6H 10/05/17 18:23: Stool Occult Blood [Pending] Height (Feet): 6 Height (Inches): 0.00 Weight (Pounds): 146 General Appearance: no apparent distress Gilberto Freedman Oct 05, 2017 22:15
[2017-10-06] VITALS (7 sets, daily range): BP systolic 108–128; BP diastolic 62–82
[2017-10-06] MEDS: Vancomycin 750mg/NS 250ml IVPB SCH ×2 (01:19→14:52)
[2017-10-06] MEDS: Piperacillin/Tazobactam 3.375 GM in NS 110 ML IVPB SCH ×3 (06:24→23:28)
[2017-10-06 06:34] LABS: BASOPHILS % (AUTO) 0.7 % (0.0-2.0); EOSINOPHILS % (AUTO) 6.2 % (0.0-3.0); HEMATOCRIT 32.8 % (42.0-52.0); LYMPHOCYTES % (AUTO) 12.4 % (20.0-45.0); MEAN CORPUSCULAR VOLUME 83 FL (80-99); MONOCYTES % (AUTO) 7.3 % (1.0-10.0); NEUTROPHILS % (AUTO) 73.4 % (45.0-75.0); PLATELET COUNT 208 K/UL (150-450); RED BLOOD COUNT 3.94 M/UL (4.70-6.10); RED CELL DISTRIBUTION WIDTH 16.9 % (11.6-14.8); WHITE BLOOD COUNT 6.7 K/UL (4.8-10.8)
[2017-10-06 06:59] LABS: INR 4.5 (0.9-1.1)
[2017-10-06 07:19] LABS: ANION GAP 7 mmol/L (5-15); BLOOD UREA NITROGEN 16 mg/dL (7-18); CALCIUM 8.3 MG/DL (8.5-10.1); CARBON DIOXIDE 26 MMOL/L (21-32); CHLORIDE 111 MMOL/L (98-107); CREATININE 0.7 MG/DL (0.55-1.30); FERRITIN 152 NG/ML (8-388); POTASSIUM 3.7 MMOL/L (3.5-5.1); SODIUM 144 MMOL/L (136-145)
[2017-10-06 07:26] LABS: % IRON SATURATION 62 % (15-50); IRON 111 ug/dL (50-175); TOTAL IRON BINDING CAPACITY 178 ug/dL (250-450)
[2017-10-06] MEDS: Heparin 5000 units/ml inj SUBQ SCH ×2 (09:22→20:29)
[2017-10-06] MEDS: Pantoprazole Inj IV SCH (09:23)
[2017-10-06] MEDS: Amiodarone 200mg tab GT SCH ×2 (09:23→20:17)
--- NOTE | 2017-10-06 12:05 | Infectious Diseases Prog Note ---
Assessment/Plan Assessment/Plan A; Sepsis Pneumonia Dementia Chronic DVT of legs P; Continue Zosyn & Vancomycin will f/u cultures Subjective ROS Limited/Unobtainable: Yes Respiratory: Reports: productive cough Allergies: Coded Allergies: No Known Allergies (Unverified , 12/05/15) Objective Vital Signs Last 24 Hour Vital Signs Date Time Temp Pulse Resp B/P (MAP) Pulse Ox O2 Delivery O2 Flow Rate FiO2 10/06/17 08:15 Nasal Cannula 2.0 28 10/06/17 08:15 76 18 Nasal Cannula 2.0 28 10/06/17 08:15 95 Nasal Cannula 2.0 28 10/06/17 08:00 97.4 73 20 117/73 95 10/06/17 04:00 98.2 74 18 119/64 96 10/06/17 00:00 98.7 77 18 108/62 98 10/05/17 20:00 97.9 78 20 105/56 94 10/05/17 19:52 97 Nasal Cannula 2.0 28 10/05/17 19:52 Nasal Cannula 2.0 28 10/05/17 19:51 80 18 Nasal Cannula 2.0 28 10/05/17 16:00 98.2 86 20 108/66 92 Height (Feet): 6 Height (Inches): 0.00 Weight (Pounds): 146 General Appearance: no acute distress HEENT: mucous membranes moist Respiratory/Chest: lungs clear Cardiovascular: normal rate Abdomen: soft, non tender Extremities: no edema, other - contracted Neurologic/Psychiatric: alert, aphasia Microbiology Date/Time Source Procedure Growth Status 10/03/17 23:15 Blood Blood Culture - Preliminary NO GROWTH AFTER 48 HOURS Resulted 10/03/17 23:10 Blood Blood Culture - Preliminary NO GROWTH AFTER 48 HOURS Resulted 10/03/17 23:15 Nasal Nares Influenza Types A,B Antigen (GWENDOLYN) - Final Complete 10/03/17 23:10 Nasal Nares MRSA Culture - Final NO METHICILLIN RESISTANT STAPH AUREUS... Complete 10/03/17 23:10 Rectum VRE Culture - Final Enterococcus Faecium - Vre Complete Laboratory Tests Test 10/05/17 18:23 10/06/17 03:55 Stool Occult Blood Negative (NEGATIVE) White Blood Count 6.7 K/UL (4.8-10.8) Red Blood Count 3.94 M/UL (4.70-6.10) L Hemoglobin 10.0 G/DL (14.2-18.0) L Hematocrit 32.8 % (42.0-52.0) L Mean Corpuscular Volume 83 FL (80-99) Mean Corpuscular Hemoglobin 25.5 PG (27.0-31.0) L Mean Corpuscular Hemoglobin Concent 30.6 G/DL (32.0-36.0) L Red Cell Distribution Width 16.9 % (11.6-14.8) H Platelet Count 208 K/UL (150-450) Mean Platelet Volume 9.9 FL (6.5-10.1) Neutrophils (%) (Auto) 73.4 % (45.0-75.0) Lymphocytes (%) (Auto) 12.4 % (20.0-45.0) L Monocytes (%) (Auto) 7.3 % (1.0-10.0) Eosinophils (%) (Auto) 6.2 % (0.0-3.0) H Basophils (%) (Auto) 0.7 % (0.0-2.0) Reticulocyte Count 1.3 % (0.0-2.0) Prothrombin Time 48.0 SEC (9.30-11.50) H Prothromb Time International Ratio 4.5 (0.9-1.1) H Activated Partial Thromboplast Time 51 SEC (23-33) H Sodium Level 144 MMOL/L (136-145) Potassium Level 3.7 MMOL/L (3.5-5.1) Chloride Level 111 MMOL/L (98-107) H Carbon Dioxide Level 26 MMOL/L (21-32) Anion Gap 7 mmol/L (5-15) Blood Urea Nitrogen 16 mg/dL (7-18) Creatinine 0.7 MG/DL (0.55-1.30) Estimat Glomerular Filtration Rate > 60 mL/min (>60) Glucose Level 88 MG/DL (74-106) Calcium Level 8.3 MG/DL (8.5-10.1) L Iron Level 111 ug/dL (50-175) Total Iron Binding Capacity 178 ug/dL (250-450) L Percent Iron Saturation 62 % (15-50) H Unsaturated Iron Binding 67 ug/dL (112-346) L Ferritin 152 NG/ML (8-388) Vitamin B12 Level 1206 PG/ML (193-986) H Folate 19.0 NG/ML (8.6-58.9) Thyroid Stimulating Hormone (TSH) 4.363 uiU/mL (0.358-3.740) Free Thyroxine 1.46 NG/DL (0.76-1.46) Current Medications Medications (Trade) Dose Ordered Sig/Gloria Route PRN Reason Start Time Stop Time Status Last Admin Dose Admin Acetaminophen (Tylenol) 650 mg Q4H PRN ORAL T>100.5 10/04/17 07:00 11/03/17 06:59 Albuterol/ Ipratropium (Albuterol/ Ipratropium) 3 ml Q4H PRN HHN Shortness of Breath 10/04/17 07:00 10/09/17 06:59 Amiodarone HCl (Cordarone) 200 mg Q12HR GT 10/04/17 09:00 11/03/17 08:59 10/06/17 09:23 Dextrose (Dextrose 50%) STAT PRN IV Hypoglycemia 10/04/17 07:00 11/03/17 06:59 Heparin Sodium (Porcine) (Heparin 5000 units/ml) 5,000 units EVERY 12 HOURS SUBQ 10/04/17 09:00 11/03/17 08:59 10/06/17 09:22 Midodrine (Pro-Amatine) 5 mg Q8HR ORAL 10/04/17 09:00 11/03/17 08:59 10/06/17 06:23 Ondansetron HCl (Zofran) 4 mg Q6H PRN IVP Nausea & Vomiting 10/04/17 07:00 11/03/17 06:59 Pantoprazole (Protonix) 40 mg DAILY IV 10/04/17 09:00 11/03/17 08:59 10/06/17 09:23 Piperacillin Sod/ Tazobactam Sod 3.375 gm/Sodium Chloride 110 ml @ 27.5 mls/hr EVERY 8 HOURS IVPB 10/04/17 09:00 10/11/17 08:59 10/06/17 06:24 Polyethylene Glycol (Miralax) 17 gm DAILYPRN PRN ORAL Constipation 10/04/17 07:00 11/03/17 06:59 Temazepam (Restoril) 15 mg HSPRN PRN ORAL Insomnia 10/04/17 21:00 10/11/17 20:59 Vancomycin HCl (Vanco rx to dose) 1 ea DAILY PRN MISC . 10/04/17 07:15 11/03/17 07:14 Vancomycin/Sodium Chloride 250 ml @ 166.667 mls/hr Q12HR@0200,1400 IVPB 10/06/17 02:00 10/11/17 01:59 10/06/17 01:19 MATY ROJAS Oct 06, 2017 12:05
--- NOTE | 2017-10-06 12:05 | GI Progress Note ---
Assessment/Plan Problems: (1) Dysphagia ICD Codes: R13.10 - Dysphagia, unspecified SNOMED: 80479648, 581764015 (2) Constipation ICD Codes: K59.00 - Constipation, unspecified SNOMED: 08974065 (3) Feeding by G-tube ICD Codes: Z93.1 - Gastrostomy status SNOMED: 188875476, 770493403 (4) Malnutrition ICD Codes: E46 - Unspecified protein-calorie malnutrition SNOMED: 98864531 (5) Anemia ICD Codes: D64.9 - Anemia, unspecified SNOMED: 805343062 Status: stable Status Narrative Discussed with Dr. Dinh. Assessment/Plan anemia work up OB stool r/o GI bleed monitor H&H, prn transfusions if Hgb less than 7, see heme note bowel regime >> colace + miralax GT site care BID/prn - clean with NS, place gauze under retention ring then clamp. Prevacid GT fu labs outpatient Hep C treatment with PCP Subjective Subjective limited Objective Last 24 Hour Vital Signs Date Time Temp Pulse Resp B/P (MAP) Pulse Ox O2 Delivery O2 Flow Rate FiO2 10/06/17 08:15 Nasal Cannula 2.0 28 10/06/17 08:15 76 18 Nasal Cannula 2.0 28 10/06/17 08:15 95 Nasal Cannula 2.0 28 10/06/17 08:00 97.4 73 20 117/73 95 10/06/17 04:00 98.2 74 18 119/64 96 10/06/17 00:00 98.7 77 18 108/62 98 10/05/17 20:00 97.9 78 20 105/56 94 10/05/17 19:52 97 Nasal Cannula 2.0 28 10/05/17 19:52 Nasal Cannula 2.0 28 10/05/17 19:51 80 18 Nasal Cannula 2.0 28 10/05/17 16:00 98.2 86 20 108/66 92 Intake and Output 10/05/17 10/06/17 19:00 07:00 Intake Total 660 ml 1620.000 ml Output Total 550 ml 650 ml Balance 110 ml 970.000 ml Free Water 300 ml 200 ml IV Total 360.000 ml Tube Feeding 360 ml 360 ml Blood Product 700 ml Output Urine Total 550 ml 650 ml # Bowel Movements 2 Laboratory Tests Test 10/05/17 18:23 10/06/17 03:55 Stool Occult Blood Negative (NEGATIVE) White Blood Count 6.7 K/UL (4.8-10.8) Red Blood Count 3.94 M/UL (4.70-6.10) L Hemoglobin 10.0 G/DL (14.2-18.0) L Hematocrit 32.8 % (42.0-52.0) L Mean Corpuscular Volume 83 FL (80-99) Mean Corpuscular Hemoglobin 25.5 PG (27.0-31.0) L Mean Corpuscular Hemoglobin Concent 30.6 G/DL (32.0-36.0) L Red Cell Distribution Width 16.9 % (11.6-14.8) H Platelet Count 208 K/UL (150-450) Mean Platelet Volume 9.9 FL (6.5-10.1) Neutrophils (%) (Auto) 73.4 % (45.0-75.0) Lymphocytes (%) (Auto) 12.4 % (20.0-45.0) L Monocytes (%) (Auto) 7.3 % (1.0-10.0) Eosinophils (%) (Auto) 6.2 % (0.0-3.0) H Basophils (%) (Auto) 0.7 % (0.0-2.0) Reticulocyte Count 1.3 % (0.0-2.0) Prothrombin Time 48.0 SEC (9.30-11.50) H Prothromb Time International Ratio 4.5 (0.9-1.1) H Activated Partial Thromboplast Time 51 SEC (23-33) H Sodium Level 144 MMOL/L (136-145) Potassium Level 3.7 MMOL/L (3.5-5.1) Chloride Level 111 MMOL/L (98-107) H Carbon Dioxide Level 26 MMOL/L (21-32) Anion Gap 7 mmol/L (5-15) Blood Urea Nitrogen 16 mg/dL (7-18) Creatinine 0.7 MG/DL (0.55-1.30) Estimat Glomerular Filtration Rate > 60 mL/min (>60) Glucose Level 88 MG/DL (74-106) Calcium Level 8.3 MG/DL (8.5-10.1) L Iron Level 111 ug/dL (50-175) Total Iron Binding Capacity 178 ug/dL (250-450) L Percent Iron Saturation 62 % (15-50) H Unsaturated Iron Binding 67 ug/dL (112-346) L Ferritin 152 NG/ML (8-388) Vitamin B12 Level 1206 PG/ML (193-986) H Folate 19.0 NG/ML (8.6-58.9) Thyroid Stimulating Hormone (TSH) 4.363 uiU/mL (0.358-3.740) Free Thyroxine 1.46 NG/DL (0.76-1.46) Height (Feet): 6 Height (Inches): 0.00 Weight (Pounds): 146 General Appearance: alert Cardiovascular: normal rate Respiratory/Chest: no respiratory distress Abdominal Exam: site - c/d/i Beth Carver N.P. Oct 06, 2017 12:05
--- NOTE | 2017-10-06 14:45 | General Progress Note ---
Assessment/Plan Status: stable Assessment/Plan 1. Deep venous thrombosis of bilaterla lower extremities history - --> most recently had recanalized dvt system, --> have recently again obtained duplex of lower extremities to reevaluate if the patient has any evidence of DVT. ---> At this time, we will hold off on anticoagulation. --> No occult blood 2. Anemia secondary to chronic disease. --> Blood transfusion not required unless symptomatic or hgb <7 --> Trend cbc levels daily. 3. Anemia secondary to iron deficiency. ---> Continue the patient on IV iron for several doses. 4. Leukopenia, potentially secondary to underlying infection. He is on antibiotics. Currently improved 5. Thrombocytopenia secondary to underlying infection history, currently better 6. Pneumonia currently is receviing antibiotics Subjective Date patient seen: Oct 06, 2017 Constitutional: Denies: no symptoms, chills, diaphoresis, fever, malaise, weakness, other HEENT: Denies: no symptoms, eye pain, blurred vision, tearing, double vision, ear pain, ear discharge, nose pain, nose congestion, throat pain, throat swelling, mouth pain, mouth swelling, other Cardiovascular: Denies: no symptoms, chest pain, edema, irregular heart rate, lightheadedness, palpitations, syncope, other Respiratory: Denies: no symptoms, cough, orthopnea, shortness of breath, SOB with excertion, SOB at rest, sputum, stridor, wheezing, other Gastrointestinal/Abdominal: Denies: no symptoms, abdomen distended, abdominal pain, black stools, tarry stools, blood in stool, constipated, diarrhea, difficulty swallowing, nausea, poor appetite, poor fluid intake, rectal bleeding , vomiting, other Genitourinary: Denies: no symptoms, burning, discharge, frequency, flank pain, hematuria, incontinence, pain, urgency, other Hematologic/Lymphatic: Reports: anemia Allergies: Coded Allergies: No Known Allergies (Unverified , 12/05/15) Subjective Nonverbal. No hematochezia. S/P PRBC. Objective Last 24 Hour Vital Signs Date Time Temp Pulse Resp B/P (MAP) Pulse Ox O2 Delivery O2 Flow Rate FiO2 10/06/17 12:00 97.9 73 20 120/82 98 10/06/17 08:15 Nasal Cannula 2.0 28 10/06/17 08:15 76 18 Nasal Cannula 2.0 28 10/06/17 08:15 95 Nasal Cannula 2.0 28 10/06/17 08:00 97.4 73 20 117/73 95 10/06/17 04:00 98.2 74 18 119/64 96 10/06/17 00:00 98.7 77 18 108/62 98 10/05/17 20:00 97.9 78 20 105/56 94 10/05/17 19:52 97 Nasal Cannula 2.0 28 10/05/17 19:52 Nasal Cannula 2.0 28 10/05/17 19:51 80 18 Nasal Cannula 2.0 28 10/05/17 16:00 98.2 86 20 108/66 92 Intake and Output 10/05/17 10/06/17 19:00 07:00 Intake Total 660 ml 1620.000 ml Output Total 550 ml 650 ml Balance 110 ml 970.000 ml Free Water 300 ml 200 ml IV Total 360.000 ml Tube Feeding 360 ml 360 ml Blood Product 700 ml Output Urine Total 550 ml 650 ml # Bowel Movements 2 Laboratory Tests 10/05/17 18:23: Stool Occult Blood Negative 10/06/17 03:55: White Blood Count 6.7, Red Blood Count 3.94L, Hemoglobin 10.0L, Hematocrit 32.8L , Mean Corpuscular Volume 83, Mean Corpuscular Hemoglobin 25.5L, Mean Corpuscular Hemoglobin Concent 30.6L, Red Cell Distribution Width 16.9H, Platelet Count 208, Mean Platelet Volume 9.9, Neutrophils (%) (Auto) 73.4, Lymphocytes (%) (Auto) 12.4L, Monocytes (%) (Auto) 7.3, Eosinophils (%) (Auto) 6.2H, Basophils (%) (Auto) 0.7, Reticulocyte Count 1.3, Prothrombin Time 48.0H, Prothromb Time International Ratio 4.5H, Activated Partial Thromboplast Time 51H , Sodium Level 144, Potassium Level 3.7, Chloride Level 111H, Carbon Dioxide Level 26, Anion Gap 7, Blood Urea Nitrogen 16, Creatinine 0.7, Estimat Glomerular Filtration Rate > 60, Glucose Level 88, Calcium Level 8.3L, Iron Level 111, Total Iron Binding Capacity 178L, Percent Iron Saturation 62H, Unsaturated Iron Binding 67L, Ferritin 152, Vitamin B12 Level 1206H, Folate 19.0 , Thyroid Stimulating Hormone (TSH) 4.363H, Free Thyroxine 1.46 Height (Feet): 6 Height (Inches): 0.00 Weight (Pounds): 146 Gilberto Freedman Oct 06, 2017 14:45
[2017-10-06] MEDS ORDERED: NS 500ML ONE (15:07)
[2017-10-06] MEDS ORDERED: NS 275ml ONE (15:07)
[2017-10-06] MEDS ORDERED: Tubing IV Secondary IV ONE (15:07)
--- NOTE | 2017-10-06 16:14 | Pulmonology Progress Note ---
Assessment/Plan Problems: (1) HCAP (healthcare-associated pneumonia) (2) COPD (chronic obstructive pulmonary disease) (3) spastic quadriparesis, verbal unresponciveness (4) Malnutrition (5) Anemia (6) Feeding by G-tube Assessment/Plan respiratory treatment IV abx check cultures tolerating feeing check electroltyes chest pt check labs in am dc planning in process Subjective ROS Limited/Unobtainable: No Constitutional: Reports: no symptoms HEENT: Repors: no symptoms Allergies: Coded Allergies: No Known Allergies (Unverified , 12/05/15) Objective Last 24 Hour Vital Signs Date Time Temp Pulse Resp B/P (MAP) Pulse Ox O2 Delivery O2 Flow Rate FiO2 10/06/17 12:00 97.9 73 20 120/82 98 10/06/17 08:15 Nasal Cannula 2.0 28 10/06/17 08:15 76 18 Nasal Cannula 2.0 28 10/06/17 08:15 95 Nasal Cannula 2.0 28 10/06/17 08:00 97.4 73 20 117/73 95 10/06/17 04:00 98.2 74 18 119/64 96 10/06/17 00:00 98.7 77 18 108/62 98 10/05/17 20:00 97.9 78 20 105/56 94 10/05/17 19:52 97 Nasal Cannula 2.0 28 10/05/17 19:52 Nasal Cannula 2.0 28 10/05/17 19:51 80 18 Nasal Cannula 2.0 28 Intake and Output 10/05/17 10/06/17 19:00 07:00 Intake Total 660 ml 1620.000 ml Output Total 550 ml 650 ml Balance 110 ml 970.000 ml Free Water 300 ml 200 ml IV Total 360.000 ml Tube Feeding 360 ml 360 ml Blood Product 700 ml Output Urine Total 550 ml 650 ml # Bowel Movements 2 Objective General Appearance: cachetic Lines, tubes and drains: peripheral HEENT: normocephalic, atraumatic Neck: non-tender, normal alignment Respiratory/Chest: chest wall non-tender, lungs clear Breasts: no masses Cardiovascular/Chest: normal peripheral pulses Abdomen: normal bowel sounds, non tender Genitourinary/Rectal: normal genital exam, normal rectal exam Extremities: normal range of motion Skin Exam: normal pigmentation Microbiology Date/Time Source Procedure Growth Status 1/23/18 23:15 Blood Blood Culture - Preliminary NO GROWTH AFTER 48 HOURS Resulted 10/03/17 23:10 Blood Blood Culture - Preliminary NO GROWTH AFTER 48 HOURS Resulted 10/03/17 23:15 Nasal Nares Influenza Types A,B Antigen (GWENDOLYN) - Final Complete 10/03/17 23:10 Nasal Nares MRSA Culture - Final NO METHICILLIN RESISTANT STAPH AUREUS... Complete 10/03/17 23:10 Rectum VRE Culture - Final Enterococcus Faecium - Vre Complete Laboratory Tests 10/05/17 18:23: Stool Occult Blood Negative 10/06/17 03:55: White Blood Count 6.7, Red Blood Count 3.94L, Hemoglobin 10.0L, Hematocrit 32.8L , Mean Corpuscular Volume 83, Mean Corpuscular Hemoglobin 25.5L, Mean Corpuscular Hemoglobin Concent 30.6L, Red Cell Distribution Width 16.9H, Platelet Count 208, Mean Platelet Volume 9.9, Neutrophils (%) (Auto) 73.4, Lymphocytes (%) (Auto) 12.4L, Monocytes (%) (Auto) 7.3, Eosinophils (%) (Auto) 6.2H, Basophils (%) (Auto) 0.7, Reticulocyte Count 1.3, Prothrombin Time 48.0H, Prothromb Time International Ratio 4.5H, Activated Partial Thromboplast Time 51H , Sodium Level 144, Potassium Level 3.7, Chloride Level 111H, Carbon Dioxide Level 26, Anion Gap 7, Blood Urea Nitrogen 16, Creatinine 0.7, Estimat Glomerular Filtration Rate > 60, Glucose Level 88, Calcium Level 8.3L, Iron Level 111, Total Iron Binding Capacity 178L, Percent Iron Saturation 62H, Unsaturated Iron Binding 67L, Ferritin 152, Vitamin B12 Level 1206H, Folate 19.0 , Thyroid Stimulating Hormone (TSH) 4.363H, Free Thyroxine 1.46 Current Medications Medications (Trade) Dose Ordered Sig/Gloria Route PRN Reason Start Time Stop Time Status Last Admin Dose Admin Acetaminophen (Tylenol) 650 mg Q4H PRN ORAL T>100.5 10/04/17 07:00 11/03/17 06:59 Albuterol/ Ipratropium (Albuterol/ Ipratropium) 3 ml Q4H PRN HHN Shortness of Breath 10/04/17 07:00 10/09/17 06:59 Amiodarone HCl (Cordarone) 200 mg Q12HR GT 10/04/17 09:00 11/03/17 08:59 10/06/17 09:23 Dextrose (Dextrose 50%) STAT PRN IV Hypoglycemia 10/04/17 07:00 11/03/17 06:59 Heparin Sodium (Porcine) (Heparin 5000 units/ml) 5,000 units EVERY 12 HOURS SUBQ 10/04/17 09:00 11/03/17 08:59 10/06/17 09:22 Midodrine (Pro-Amatine) 5 mg Q8HR ORAL 10/04/17 09:00 11/03/17 08:59 10/06/17 14:55 Ondansetron HCl (Zofran) 4 mg Q6H PRN IVP Nausea & Vomiting 10/04/17 07:00 11/03/17 06:59 Pantoprazole (Protonix) 40 mg DAILY IV 10/04/17 09:00 11/03/17 08:59 10/06/17 09:23 Piperacillin Sod/ Tazobactam Sod 3.375 gm/Sodium Chloride 110 ml @ 27.5 mls/hr EVERY 8 HOURS IVPB 10/04/17 09:00 10/11/17 08:59 10/06/17 06:24 Polyethylene Glycol (Miralax) 17 gm DAILYPRN PRN ORAL Constipation 10/04/17 07:00 11/03/17 06:59 Temazepam (Restoril) 15 mg HSPRN PRN ORAL Insomnia 10/04/17 21:00 10/11/17 20:59 Vancomycin HCl (Vanco rx to dose) 1 ea DAILY PRN MISC . 10/04/17 07:15 11/03/17 07:14 Vancomycin/Sodium Chloride 250 ml @ 166.667 mls/hr Q12HR@0200,1400 IVPB 10/06/17 02:00 10/11/17 01:59 10/06/17 14:52 ALMA LINDO Oct 06, 2017 16:14
--- NOTE | 2017-10-06 16:36 | General Progress Note ---
Assessment/Plan Problem List: (1) CHF (congestive heart failure) ICD Codes: I50.9 - Heart failure, unspecified SNOMED: 81260845 (2) UTI (urinary tract infection) ICD Codes: N39.0 - Urinary tract infection, site not specified SNOMED: 32200869 (3) HTN (hypertension) ICD Codes: I10 - Essential (primary) hypertension SNOMED: 28653984 (4) Pneumonia ICD Codes: J18.9 - Pneumonia, unspecified organism SNOMED: 511425298 (5) Cachexia ICD Codes: R64 - Cachexia SNOMED: 493557308 (6) Malnutrition ICD Codes: E46 - Unspecified protein-calorie malnutrition SNOMED: 22417749 (7) Anemia ICD Codes: D64.9 - Anemia, unspecified SNOMED: 226465257 (8) COPD (chronic obstructive pulmonary disease) ICD Codes: J44.9 - Chronic obstructive pulmonary disease, unspecified SNOMED: 27198107 Status: stable, progressing, tolerating diet Assessment/Plan 02 pulm tx abx cbc bmp am endo eval dc plan Subjective Allergies: Coded Allergies: No Known Allergies (Unverified , 12/05/15) All Systems: reviewed and negative except above Subjective 02nc confused Objective Last 24 Hour Vital Signs Date Time Temp Pulse Resp B/P (MAP) Pulse Ox O2 Delivery O2 Flow Rate FiO2 10/06/17 12:00 97.9 73 20 120/82 98 10/06/17 08:15 Nasal Cannula 2.0 28 10/06/17 08:15 76 18 Nasal Cannula 2.0 28 10/06/17 08:15 95 Nasal Cannula 2.0 28 10/06/17 08:00 97.4 73 20 117/73 95 10/06/17 04:00 98.2 74 18 119/64 96 10/06/17 00:00 98.7 77 18 108/62 98 10/05/17 20:00 97.9 78 20 105/56 94 10/05/17 19:52 97 Nasal Cannula 2.0 28 10/05/17 19:52 Nasal Cannula 2.0 28 10/05/17 19:51 80 18 Nasal Cannula 2.0 28 Intake and Output 10/05/17 10/06/17 19:00 07:00 Intake Total 660 ml 1620.000 ml Output Total 550 ml 650 ml Balance 110 ml 970.000 ml Free Water 300 ml 200 ml IV Total 360.000 ml Tube Feeding 360 ml 360 ml Blood Product 700 ml Output Urine Total 550 ml 650 ml # Bowel Movements 2 Laboratory Tests 10/05/17 18:23: Stool Occult Blood Negative 10/06/17 03:55: White Blood Count 6.7, Red Blood Count 3.94L, Hemoglobin 10.0L, Hematocrit 32.8L , Mean Corpuscular Volume 83, Mean Corpuscular Hemoglobin 25.5L, Mean Corpuscular Hemoglobin Concent 30.6L, Red Cell Distribution Width 16.9H, Platelet Count 208, Mean Platelet Volume 9.9, Neutrophils (%) (Auto) 73.4, Lymphocytes (%) (Auto) 12.4L, Monocytes (%) (Auto) 7.3, Eosinophils (%) (Auto) 6.2H, Basophils (%) (Auto) 0.7, Reticulocyte Count 1.3, Prothrombin Time 48.0H, Prothromb Time International Ratio 4.5H, Activated Partial Thromboplast Time 51H , Sodium Level 144, Potassium Level 3.7, Chloride Level 111H, Carbon Dioxide Level 26, Anion Gap 7, Blood Urea Nitrogen 16, Creatinine 0.7, Estimat Glomerular Filtration Rate > 60, Glucose Level 88, Calcium Level 8.3L, Iron Level 111, Total Iron Binding Capacity 178L, Percent Iron Saturation 62H, Unsaturated Iron Binding 67L, Ferritin 152, Vitamin B12 Level 1206H, Folate 19.0 , Thyroid Stimulating Hormone (TSH) 4.363H, Free Thyroxine 1.46 Height (Feet): 6 Height (Inches): 0.00 Weight (Pounds): 146 General Appearance: lethargic EENT: normal ENT inspection Neck: normal alignment, abnormal alignment Cardiovascular: normal rate, regular rhythm Respiratory/Chest: chest wall non-tender, lungs clear, normal breath sounds Abdomen: normal bowel sounds, non tender, soft Extremities: normal inspection Edema: no edema noted Arm (L), no edema noted Arm (R), no edema noted Leg (L), no edema noted Leg (R), no edema noted Pedal (L), no edema noted Pedal (R), no edema noted Generalized Neurologic: motor weakness Skin: normal pigmentation, warm/dry ALONDRA SINGH Oct 06, 2017 16:36
[2017-10-07] MEDS: Vancomycin 750mg/NS 250ml IVPB SCH (02:06)
[2017-10-07 03:47] VITALS: BP 122/78
[2017-10-07] MEDS: Piperacillin/Tazobactam 3.375 GM in NS 110 ML IVPB SCH (05:36)
[2017-10-07 07:06] LABS: BASOPHILS % (AUTO) 0.6 % (0.0-2.0); EOSINOPHILS % (AUTO) 5.1 % (0.0-3.0); HEMATOCRIT 37.6 % (42.0-52.0); HEMOGLOBIN 11.9 G/DL (14.2-18.0); LYMPHOCYTES % (AUTO) 20.2 % (20.0-45.0); MEAN CORPUSCULAR VOLUME 83 FL (80-99); MONOCYTES % (AUTO) 11.5 % (1.0-10.0); NEUTROPHILS % (AUTO) 62.6 % (45.0-75.0); PLATELET COUNT 227 K/UL (150-450); RED BLOOD COUNT 4.54 M/UL (4.70-6.10); RED CELL DISTRIBUTION WIDTH 16.6 % (11.6-14.8); WHITE BLOOD COUNT 7.2 K/UL (4.8-10.8)
[2017-10-07 07:23] LABS: ANION GAP 8 mmol/L (5-15); BLOOD UREA NITROGEN 12 mg/dL (7-18); CALCIUM 8.3 MG/DL (8.5-10.1); CARBON DIOXIDE 23 MMOL/L (21-32); CHLORIDE 110 MMOL/L (98-107); CREATININE 0.5 MG/DL (0.55-1.30); POTASSIUM 5.3 MMOL/L (3.5-5.1); SODIUM 141 MMOL/L (136-145)
[2017-10-07 08:33] VITALS: BP 133/83
[2017-10-07] MEDS: Amiodarone 200mg tab GT SCH (09:22)
[2017-10-07] MEDS: Pantoprazole Inj IV SCH (09:22)
[2017-10-07] MEDS: Heparin 5000 units/ml inj SUBQ SCH (09:23)
--- NOTE | 2017-10-07 09:26 | General Progress Note ---
Assessment/Plan Problem List: (1) CHF (congestive heart failure) ICD Codes: I50.9 - Heart failure, unspecified SNOMED: 57238709 (2) UTI (urinary tract infection) ICD Codes: N39.0 - Urinary tract infection, site not specified SNOMED: 45377151 (3) HTN (hypertension) ICD Codes: I10 - Essential (primary) hypertension SNOMED: 08200552 (4) Pneumonia ICD Codes: J18.9 - Pneumonia, unspecified organism SNOMED: 337753557 (5) Cachexia ICD Codes: R64 - Cachexia SNOMED: 984170990 (6) Malnutrition ICD Codes: E46 - Unspecified protein-calorie malnutrition SNOMED: 09769436 (7) Anemia ICD Codes: D64.9 - Anemia, unspecified SNOMED: 972455148 (8) COPD (chronic obstructive pulmonary disease) ICD Codes: J44.9 - Chronic obstructive pulmonary disease, unspecified SNOMED: 84529401 Status: unchanged Assessment/Plan 02 pulm tx abx cbc bmp am endo eval dc plan Subjective Constitutional: Reports: weakness Allergies: Coded Allergies: No Known Allergies (Unverified , 12/05/15) All Systems: reviewed and negative except above Subjective 02nc confused Objective Last 24 Hour Vital Signs Date Time Temp Pulse Resp B/P (MAP) Pulse Ox O2 Delivery O2 Flow Rate FiO2 10/07/17 08:33 96 Nasal Cannula 2.0 28 10/07/17 08:33 Nasal Cannula 2.0 28 10/07/17 08:33 64 16 Nasal Cannula 2.0 28 10/07/17 08:33 98.4 73 20 133/83 100 10/07/17 03:47 97.5 60 20 122/78 95 Nasal Cannula 10/06/17 23:52 96.4 75 20 128/78 99 Room Air 10/06/17 20:05 96.8 74 20 118/73 97 Nasal Cannula 10/06/17 19:44 79 18 Nasal Cannula 2.0 28 10/06/17 19:44 Nasal Cannula 2.0 28 10/06/17 19:44 96 Nasal Cannula 2.0 28 10/06/17 16:00 97.7 78 18 120/81 94 10/06/17 12:00 97.9 73 20 120/82 98 Intake and Output 10/06/17 10/07/17 19:00 07:00 Intake Total 848.334 ml 120 ml Output Total 1650 ml Balance 848.334 ml -1530 ml Free Water 100 ml IV Total 388.334 ml Tube Feeding 360 ml 120 ml Output Urine Total 1650 ml Laboratory Tests 10/07/17 04:40: White Blood Count 7.2, Red Blood Count 4.54L, Hemoglobin 11.9L, Hematocrit 37.6L , Mean Corpuscular Volume 83, Mean Corpuscular Hemoglobin 26.2L, Mean Corpuscular Hemoglobin Concent 31.7L, Red Cell Distribution Width 16.6H, Platelet Count 227, Mean Platelet Volume 9.1, Neutrophils (%) (Auto) 62.6, Lymphocytes (%) (Auto) 20.2, Monocytes (%) (Auto) 11.5H, Eosinophils (%) (Auto) 5.1H, Basophils (%) (Auto) 0.6, Sodium Level 141, Potassium Level 5.3H, Chloride Level 110H, Carbon Dioxide Level 23, Anion Gap 8, Blood Urea Nitrogen 12, Creatinine 0.5L, Estimat Glomerular Filtration Rate > 60, Glucose Level 79, Calcium Level 8.3L Height (Feet): 6 Height (Inches): 0.00 Weight (Pounds): 146 General Appearance: lethargic EENT: normal ENT inspection Neck: normal alignment Cardiovascular: normal peripheral pulses, normal rate, regular rhythm Respiratory/Chest: chest wall non-tender, lungs clear, normal breath sounds Abdomen: normal bowel sounds, non tender, soft Extremities: normal inspection Edema: no edema noted Arm (L), no edema noted Arm (R), no edema noted Leg (L), no edema noted Leg (R), no edema noted Pedal (L), no edema noted Pedal (R), no edema noted Generalized Neurologic: motor weakness Skin: normal pigmentation, warm/dry ALONDRA SINGH Oct 07, 2017 09:26
--- NOTE | 2017-10-07 10:03 | Pulmonology Progress Note ---
Assessment/Plan Problems: (1) HCAP (healthcare-associated pneumonia) (2) COPD (chronic obstructive pulmonary disease) (3) spastic quadriparesis, verbal unresponciveness (4) Malnutrition (5) Anemia (6) Feeding by G-tube Assessment/Plan respiratory treatment IV abx check cultures tolerating feeing check electroltyes chest pt check labs in am dc planning in process Subjective ROS Limited/Unobtainable: No Constitutional: Reports: no symptoms HEENT: Repors: no symptoms Respiratory: Reports: no symptoms Allergies: Coded Allergies: No Known Allergies (Unverified , 12/05/15) Objective Last 24 Hour Vital Signs Date Time Temp Pulse Resp B/P (MAP) Pulse Ox O2 Delivery O2 Flow Rate FiO2 10/07/17 08:33 96 Nasal Cannula 2.0 28 10/07/17 08:33 Nasal Cannula 2.0 28 10/07/17 08:33 64 16 Nasal Cannula 2.0 28 10/07/17 08:33 98.4 73 20 133/83 100 10/07/17 03:47 97.5 60 20 122/78 95 Nasal Cannula 10/06/17 23:52 96.4 75 20 128/78 99 Room Air 10/06/17 20:05 96.8 74 20 118/73 97 Nasal Cannula 10/06/17 19:44 79 18 Nasal Cannula 2.0 28 10/06/17 19:44 Nasal Cannula 2.0 28 10/06/17 19:44 96 Nasal Cannula 2.0 28 10/06/17 16:00 97.7 78 18 120/81 94 10/06/17 12:00 97.9 73 20 120/82 98 Intake and Output 10/06/17 10/07/17 19:00 07:00 Intake Total 848.334 ml 120 ml Output Total 1650 ml Balance 848.334 ml -1530 ml Free Water 100 ml IV Total 388.334 ml Tube Feeding 360 ml 120 ml Output Urine Total 1650 ml Objective General Appearance: cachetic Lines, tubes and drains: peripheral HEENT: normocephalic, atraumatic Neck: non-tender, normal alignment Respiratory/Chest: chest wall non-tender, lungs clear Breasts: no masses Cardiovascular/Chest: normal peripheral pulses Abdomen: normal bowel sounds, non tender Genitourinary/Rectal: normal genital exam, normal rectal exam Extremities: normal range of motion Skin Exam: normal pigmentation Laboratory Tests 10/07/17 04:40: White Blood Count 7.2, Red Blood Count 4.54L, Hemoglobin 11.9L, Hematocrit 37.6L , Mean Corpuscular Volume 83, Mean Corpuscular Hemoglobin 26.2L, Mean Corpuscular Hemoglobin Concent 31.7L, Red Cell Distribution Width 16.6H, Platelet Count 227, Mean Platelet Volume 9.1, Neutrophils (%) (Auto) 62.6, Lymphocytes (%) (Auto) 20.2, Monocytes (%) (Auto) 11.5H, Eosinophils (%) (Auto) 5.1H, Basophils (%) (Auto) 0.6, Sodium Level 141, Potassium Level 5.3H, Chloride Level 110H, Carbon Dioxide Level 23, Anion Gap 8, Blood Urea Nitrogen 12, Creatinine 0.5L, Estimat Glomerular Filtration Rate > 60, Glucose Level 79, Calcium Level 8.3L Current Medications Medications (Trade) Dose Ordered Sig/Gloria Route PRN Reason Start Time Stop Time Status Last Admin Dose Admin Acetaminophen (Tylenol) 650 mg Q4H PRN ORAL T>100.5 10/04/17 07:00 11/03/17 06:59 Albuterol/ Ipratropium (Albuterol/ Ipratropium) 3 ml Q4H PRN HHN Shortness of Breath 10/04/17 07:00 10/09/17 06:59 Amiodarone HCl (Cordarone) 200 mg Q12HR GT 10/04/17 09:00 11/03/17 08:59 10/07/17 09:22 Dextrose (Dextrose 50%) STAT PRN IV Hypoglycemia 10/04/17 07:00 11/03/17 06:59 Heparin Sodium (Porcine) (Heparin 5000 units/ml) 5,000 units EVERY 12 HOURS SUBQ 10/04/17 09:00 11/03/17 08:59 10/07/17 09:23 Midodrine (Pro-Amatine) 5 mg Q8HR ORAL 10/04/17 09:00 11/03/17 08:59 10/07/17 05:36 Ondansetron HCl (Zofran) 4 mg Q6H PRN IVP Nausea & Vomiting 10/04/17 07:00 2/23/18 06:59 Pantoprazole (Protonix) 40 mg DAILY IV 10/04/17 09:00 11/03/17 08:59 10/07/17 09:22 Piperacillin Sod/ Tazobactam Sod 3.375 gm/Sodium Chloride 110 ml @ 27.5 mls/hr EVERY 8 HOURS IVPB 10/04/17 09:00 10/11/17 08:59 10/07/17 05:36 Polyethylene Glycol (Miralax) 17 gm DAILYPRN PRN ORAL Constipation 10/04/17 07:00 11/03/17 06:59 Temazepam (Restoril) 15 mg HSPRN PRN ORAL Insomnia 10/04/17 21:00 10/11/17 20:59 Vancomycin HCl (Vanco rx to dose) 1 ea DAILY PRN MISC . 10/04/17 07:15 11/03/17 07:14 Vancomycin/Sodium Chloride 250 ml @ 166.667 mls/hr Q12HR@0200,1400 IVPB 10/06/17 02:00 10/11/17 01:59 10/07/17 02:06 ALMA LINDO Oct 07, 2017 10:03
[2017-10-07 11:24] VITALS: BP 135/80
[2017-10-07] MEDS ORDERED: Levofloxacin 500mg tab GT SCH (13:00)
[2017-10-07 15:56] VITALS: BP 130/75
[2017-10-07] MEDS ORDERED: LEVOFLOXACIN500 MG GT (17:19)
[2017-10-07] MEDS ORDERED: MIDODRINE HCL10 MG GT (17:21)
[2017-10-07] MEDS ORDERED: MIDODRINE HCL5 MG ORAL (17:21)
[2017-10-07] MEDS ORDERED: ZOFRAN 4 MG4 MG/2 ML IV (17:22)
[2017-10-07] MEDS ORDERED: MIRALAX17 G2 GT ×2 (17:25→17:32)
[2017-10-07] MEDS ORDERED: PANTOPRAZOLE SO40 MG GT (17:25)
[2017-10-07] MEDS ORDERED: TEMAZEPAM15 MG GT (17:27)
[2017-10-07] MEDS ORDERED: ZOFRAN4 M1 GT (17:27)
[2017-10-07] MEDS ORDERED: PRO-AMATINE5 M1 GT (17:32)
--- NOTE | 2017-10-07 21:02 | General Progress Note ---
Assessment/Plan Status: stable Assessment/Plan 1. Deep venous thrombosis of bilateral lower extremities history - --> most recently had recanalized dvt system, --> have recently again obtained duplex of lower extremities to reevaluate if the patient has any evidence of DVT. ---> At this time, we will hold off on anticoagulation as INR elevated. --> No occult blood 2. Anemia secondary to chronic disease. --> Blood transfusion not required unless symptomatic or hgb <7 --> Trend cbc levels daily. 3. Anemia secondary to iron deficiency. ---> Continue the patient on IV iron for several doses. 4. Leukopenia, potentially secondary to underlying infection. --> He is on antibiotics. Currently improved 5. Thrombocytopenia secondary to underlying infection history, currently better 6. Pneumonia currently is receiving antibiotics Subjective Date patient seen: Oct 07, 2017 Constitutional: Denies: no symptoms, chills, diaphoresis, fever, malaise, weakness, other HEENT: Denies: no symptoms, eye pain, blurred vision, tearing, double vision, ear pain, ear discharge, nose pain, nose congestion, throat pain, throat swelling, mouth pain, mouth swelling, other Cardiovascular: Denies: no symptoms, chest pain, edema, irregular heart rate, lightheadedness, palpitations, syncope, other Respiratory: Denies: no symptoms, cough, orthopnea, shortness of breath, SOB with excertion, SOB at rest, sputum, stridor, wheezing, other Gastrointestinal/Abdominal: Denies: no symptoms, abdomen distended, abdominal pain, black stools, tarry stools, blood in stool, constipated, diarrhea, difficulty swallowing, nausea, poor appetite, poor fluid intake, rectal bleeding , vomiting, other Hematologic/Lymphatic: Reports: anemia, other Allergies: Coded Allergies: No Known Allergies (Unverified , 12/05/15) Subjective Nonverbal. On antibiotics. Objective Last 24 Hour Vital Signs Date Time Temp Pulse Resp B/P (MAP) Pulse Ox O2 Delivery O2 Flow Rate FiO2 10/07/17 15:56 98.6 80 20 130/75 100 10/07/17 11:24 98.0 75 20 135/80 100 10/07/17 08:33 96 Nasal Cannula 2.0 28 10/07/17 08:33 Nasal Cannula 2.0 28 10/07/17 08:33 64 16 Nasal Cannula 2.0 28 10/07/17 08:33 98.4 73 20 133/83 100 10/07/17 03:47 97.5 60 20 122/78 95 Nasal Cannula 10/06/17 23:52 96.4 75 20 128/78 99 Room Air Intake and Output 10/06/17 10/07/17 19:00 07:00 Intake Total 848.334 ml 120 ml Output Total 1650 ml Balance 848.334 ml -1530 ml Free Water 100 ml IV Total 388.334 ml Tube Feeding 360 ml 120 ml Output Urine Total 1650 ml Laboratory Tests 10/07/17 04:40: White Blood Count 7.2, Red Blood Count 4.54L, Hemoglobin 11.9L, Hematocrit 37.6L , Mean Corpuscular Volume 83, Mean Corpuscular Hemoglobin 26.2L, Mean Corpuscular Hemoglobin Concent 31.7L, Red Cell Distribution Width 16.6H, Platelet Count 227, Mean Platelet Volume 9.1, Neutrophils (%) (Auto) 62.6, Lymphocytes (%) (Auto) 20.2, Monocytes (%) (Auto) 11.5H, Eosinophils (%) (Auto) 5.1H, Basophils (%) (Auto) 0.6, Sodium Level 141, Potassium Level 5.3H, Chloride Level 110H, Carbon Dioxide Level 23, Anion Gap 8, Blood Urea Nitrogen 12, Creatinine 0.5L, Estimat Glomerular Filtration Rate > 60, Glucose Level 79, Calcium Level 8.3L Height (Feet): 6 Height (Inches): 0.00 Weight (Pounds): 146 General Appearance: no apparent distress Edema: no edema noted Arm (L), no edema noted Arm (R), no edema noted Leg (L) Skin: warm/dry Gilberto Freedman Oct 07, 2017 21:02
--- NOTE | 2017-10-09 12:40 | Discharge Summary ---
Discharge Summary Hospital Course Date of Admission Oct 03, 2017 at 23:37 Date of Discharge Oct 07, 2017 at 19:45 Admitting Diagnosis pneumonia HPI Bret Boyce is a 66 year old male who was admitted on Oct 03, 2017 at 23:37 for Pneumonia Hospital Course dc summary #[id number] Discharge Medications Continued Medications: Levofloxacin (Levofloxacin*) 500 Mg Tablet 750 MG GT DAILY for 4 Days, TAB Midodrine (Midodrine HCl) 5 Mg Tablet 5 MG GT EVERY 8 HOURS, TAB Ondansetron (Zofran) 4 Mg Tablet 4 MG GT Q6H PRN for Nausea & Vomiting, TAB Pantoprazole* (Pantoprazole*) 40 Mg Tablet.dr 40 MG GT DAILY, TAB Polyethylene Glycol 3350* (Miralax*) 17 Gm Powd.pack 17 GM GT DAILY PRN for Constipation, PACKET Temazepam (Temazepam*) 15 Mg Capsule 15 MG GT BEDTIME PRN for Insomnia, #30 CAP 0 Refills Discharge Condition Upon Discharge: stable Discharge Disposition Patient was discharged to SNF/Subacute Facility(03) Discharge Diagnoses: Discharge Instructions Discharge Instructions Special Instructions I have been assigned to complete a D/C Summary on this account. I was not involved in the patient management Rena Brooks NP ([facility]) Oct 09, 2017 12:40
--- NOTE | 2017-10-09 20:45 | Discharge Summary 2 SIG ---
DATE OF ADMISSION: 10/03/2017 DATE OF DISCHARGE: 10/07/2017 REASON FOR ADMISSION: 66-year-old male with past medical history of CHF, atrial fibrillation, chronic DVT, schizophrenia, anemia, multiple decubitus, dysphagia, G-tube presented to the emergency department from the retirement facility for evaluation. The patient had pneumonia in the past. He was coughing, but unfortunately was unable to provide any history. The patient was on Coumadin for chronic DVT. Workup in the emergency room revealed low-grade fever. Chest x-ray showed evidence of infiltrate right mid and right lower lobe. The patient was with leukocytosis, WBC- 15, anemic:hemoglobin -8.7, hematocrit- 28.9. Lactic acid - 1.4. INR -4.4. Albumin -1.8. The patient was admitted with healthcare associated pneumonia, COPD, coagulopathy, spastic quadriparesis with verbal unresponsiveness, anemia, feeding by G-tube, malnutrition. HOSPITAL COURSE: The patient admitted. The patient started on empiric antibiotics. ID followed. GI consult was requested. Anemia workup was initiated. Taping Supervisor followed. Coumadin was held due to excessive coagulopathy. Last venous duplex revealed recanalized thrombus, control integration engineer recommended to stop anticoagulation at this time and repeat venous duplex in the facility later. ID followed with antibiotic regimen management. Blood culture were negative. Influenza screen was negative. Sputum culture revealed gram-negative bacilli. The patient was on IV antibiotic as per ID recommendation and was discharged on oral antibiotic via G tube. Hemoglobin and hematocrit were closely monitored. The patient status post two units of packed red blood cells transfusion for hemoglobin -7.9, hematocrit -26.3. After transfusion and prior to discharge hemoglobin -11.9, hematocrit -37.6. Stool for OB was negative. Bowel regimen instituted. G-tube site provided. GI prophylaxis provided with Prevacid. DVT prophylaxis provided. Blood pressure was supported with midodrine and remained stable. Anemia workup was consistent with anemia of chronic disease. Noted elevated TSH but normal free T4. Check thyroid function panel in one to two months. The patient with evidence of multiple pressure ulcer and DTI present on admission. Wound care provided as per wound care nurse recommendation. Nutritional recommendation implemented during the stay in the hospital, continue at the retirement facility. The patient was stable for discharge when clinically improved to retirement facility. FINAL DIAGNOSES: 1. Sepsis due to pneumonia. 2. Healthcare associated pneumonia with gram-negative bacteria. 3. Chronic obstructive pulmonary disease. 4. Coagulopathy secondary to anticoagulation use. 5. Dysphagia. 6. Feeding by gastrostomy tube. 7. Malnutrition. 8. Anemia of chronic disease. 9. Spastic quadriparesis with verbal unresponsiveness. 10. Dementia. 11. Chronic deep venous thrombosis, most recently recanalized. 12. Right trochanter stage II decubitus ulcer, present on admission 13. Right temporal bone decubitus ulcer stage II, present on admission. 14. Left knee stage II decubitus ulcer , present on admission. 15. Right ear stage III decubitus ulcer, present on admission. 16. Multiple deep tissue injuries, present on admission. DISCHARGE MEDICATIONS: See medication reconciliation list. DISCHARGE INSTRUCTIONS: The patient discharged to retirement facility. Follow up with venous Duplex at the facility. Continue wound care and dietary recommendations. Outpatient hepatitis C treatment with the primary care provider. FOLLOWUP: Followup with medical doctor at the facility. Johan Rangel D.O. I have been assigned to dictate discharge summary on this account and I was not involved in the patient's management. Rena SalamancaLong Island Community HospitalOctavia N.PMaximo DR: Luna JOB#: [id number] CC: OSCAR
--- NOTE | 2017-10-11 18:30 | Cardiology Report ---
APPROVED REPORT EKG Measurement Heart [id number] OR [id number] Normal sinus rhythm Normal ECG
== END 2017-10-07 19:45 | DRG 720 ==
LOC: EDBD 23:07 → EMR 23:20 → EDBEDREQ 23:20 → 4W 23:37 → EDBEDREQ 23:58
PROC: 30233N1 Transfusion of Nonautologous Red Blood Cells into Peripheral Vein, Percutaneous Approach (ICD-10-PCS; principal; 2017-10-05)
DX: A41.9 Sepsis, unspecified organism (principal); J96.90 Respiratory failure, unspecified, unspecified whether with hypoxia or hypercapnia; G82.50 Quadriplegia, unspecified; L89.110 Pressure ulcer of right upper back, unstageable; J15.8 Pneumonia due to other specified bacteria; I11.0 Hypertensive heart disease with heart failure; E46 Unspecified protein-calorie malnutrition; D68.9 Coagulation defect, unspecified; I50.9 Heart failure, unspecified; L89.893 Pressure ulcer of other site, stage 3; L89.212 Pressure ulcer of right hip, stage 2; R13.10 Dysphagia, unspecified; G30.9 Alzheimer's disease, unspecified; F02.80 Dementia in other diseases classified elsewhere, unspecified severity, without behavioral disturbance, psychotic disturbance, mood disturbance, and anxiety; J44.9 Chronic obstructive pulmonary disease, unspecified; I82.503 Chronic embolism and thrombosis of unspecified deep veins of lower extremity, bilateral; Z79.01 Long term (current) use of anticoagulants; D63.8 Anemia in other chronic diseases classified elsewhere; Z68.1 Body mass index [BMI] 19.9 or less, adult; R41.82 Altered mental status, unspecified; Z43.1 Encounter for attention to gastrostomy; L89.812 Pressure ulcer of head, stage 2; L89.150 Pressure ulcer of sacral region, unstageable; L89.892 Pressure ulcer of other site, stage 2; L89.320 Pressure ulcer of left buttock, unstageable; L89.130 Pressure ulcer of right lower back, unstageable; F20.9 Schizophrenia, unspecified; D50.9 Iron deficiency anemia, unspecified; D69.6 Thrombocytopenia, unspecified
CPT/HCPCS: 36415; 71045; 80048; 80053; 80069; 80202; 81003; 82270; 82378; 82550; 82607; 82728; 82746; 83540; 83550; 83605; 83880; 84238; 84439; 84443; 84466; 84484; 85007; 85025; 85044; 85610; 85730; 86710; 86850; 86900; 86901; 86920; 87040; 87070; 87081; 87181; 87205; 93005; 94664; 94760; 97803; 99285